=== PATIENT | male | born 1975 | race Caucasian/White ===

== ENCOUNTER 2016-12-03 02:16 | Inpatient (IN) | payer OTHER ==
[~2016-12-03] VITALS: Ht 175.3 cm; Wt 114.7 kg
[~2016-12-03 02:16] MED LIST: AMLO-110 PO; ASPI81TA82 PO; DIAZ-165 PO; DICY20TA35 PO; DRGTP12 TD; FLUT0.0529 NAE; GLIP-199 PO; HYDR25TA5 PO; LSN20 PO; METF500T5 PO; METO100T14 PO; NRN400 PO; OXYC15TA49 PO; POTA20TA16 PO; PRLSR20 PO; TRAZ100T29 PO
[2016-12-03] MEDS ORDERED: LORAZEPAM 2 MG/ML 1 ML VIAL IV STA (02:30)
[2016-12-03] MEDS ORDERED: LABETALOL HCL IV 5 MG/ML 20ML IV STA (02:30)
--- NOTE | 2016-12-03 02:32 | EMERGENCY ROOM VISIT NOTE ---
History Report prepared by Hebert: Lenka Ballesteros Under the Supervision of: Dr. Ugo Prasad M.D. First contact with patient: 02:17 Chief Complaint: CHEST PAIN Stated Complaint: CHEST PAIN/SHORTNESS OF BREATH History of Present Illness The patient is a 41 year old male who presents to the Emergency Room with complaints of constant sharp chest pain beginning 3 hours ago. The patient complains of pain radiating to his left arm, shortness of breath, and a headache that began after he received nitroglycerine in the ambulance [employer]. He notes that his chest pain started while he was watching TV and it feels similar to the pain that he had 1 month ago. He reports that his chest pain is resolving slightly now. The patient denies any abdominal pain, leg swelling, calf pain, back pain, and cocaine usage. He notes that he has not taken his blood pressure medication tonight. Source of History: patient Onset: 3 hours ago Position: chest Quality: sharp Timing: constant Associated Symptoms: + SOB, + headache, No abdominal pain, No back pain Note: The patient complains of pain radiating to his left arm. The patient denies any leg swelling, calf pain, and cocaine usage. Review of Systems See HPI for pertinent positives & negatives. A total of 10 systems reviewed and were otherwise negative. Past Medical & Surgical Medical Problems: (1) Anxiety (2) Asthma (3) Bipolar disorder (4) Diabetes mellitus type I (5) GERD (gastroesophageal reflux disease) (6) HTN (hypertension) (7) Obesity (8) JOSE (obstructive sleep apnea) Surgical Problems: (1) History of tonsillectomy and adenoidectomy (2) Hx of reconstruction of anterior cruciate ligament tear (3) S/P left knee arthroscopy Social History Problems: (1) Tobacco use Family History Diabetes mellitus FH: cancer FH: lung disease FHx: gallbladder disease FHx: heart disease Hypertension Kidney disease Kidney stones Social History Smoking Status: Former Smoker Alcohol Use: none Drug Use: none Marital Status: Housing Status: lives with family Occupation Status: disabled Current/Historical Medications Scheduled Amlodipine (Norvasc), 5 MG PO DAILY Aspirin (Aspirin Ec), 81 MG PO DAILY Budesonide/Formoterol Fumarate (Symbicort 160/4.5 Inhaler), 2 PUFFS INH BID Diazepam (Valium), 5 MG PO QID Dicyclomine Hcl (Bentyl), 20 MG PO QID Fentanyl (Fentanyl), 12 MCG TD CQ72HR Fluticasone Propionate (Nasal) (Flonase Allergy Relief), 2 SPRAYS CAROLEE DAILY Gabapentin (Gabapentin), 400 MG PO TID Glipizide (Glipizide Er), 10 MG PO DAILY Hydrochlorothiazide (Hydrochlorothiazide), 25 MG PO DAILY Lisinopril (Lisinopril), 20 MG PO QPM Metformin Hcl Er (Glucophage Er), 500 MG PO BID Metoprolol Tartrate (Lopressor) (Lopressor), 100 MG PO BID Montelukast Sodium (Singulair), 10 MG PO DAILY Omeprazole (Prilosec), 20 MG PO TID Oxycodone Hcl (Roxicodone), 15 MG PO QID Trazodone Hcl (Trazodone), 300 MG PO HS Scheduled PRN Docusate Sodium (Stool Softener), 100 MG PO TID PRN for Constipation Potassium Ext Rel (Klor-Con), 20 MEQ PO DAILY PRN for WHEN TAKING LASIX Allergies Coded Allergies: Hydrocodone (Verified Allergy, Unknown, hives, itching, 12/03/16) Tramadol (Unverified Allergy, Unknown, VOMITING, 12/03/16) Uncoded Allergies: ANTIBIOTICS (Allergy, Unknown, c diff, 06/30/15) pt states"I have to be treated for c diff if i am taking any abx Physical Exam Vital Signs Date Time Temp Pulse Resp B/P Pulse Ox O2 Delivery O2 Flow Rate FiO2 12/03/16 06:59 83 156/94 98 Room Air 12/03/16 06:16 85 12/03/16 05:43 93 16 175/93 99 Room Air 12/03/16 04:02 85 16 157/95 97 Room Air 12/03/16 02:23 74 12/03/16 02:22 36.8 77 18 182/104 99 Room Air Physical Exam GENERAL: Patient is anxious appearing and in mild distress. HEENT: No acute trauma, normocephalic atraumatic, mucous membranes moist, no nasal congestion, no scleral icterus. NECK: No stridor, no adenopathy, no meningismus, trachea is midline. LUNGS: No dyspnea. Clear to auscultation and equal bilaterally. No wheeze, no rhonchi. HEART: Regular rate and rhythm. No murmurs, rubs, gallops appreciated. ABDOMEN: Soft, nontender, bowel sounds positive, no masses appreciated, no peritonitis. BACK: No midline tenderness, no CVA tenderness EXTREMITIES: Normal motion all extremities, no cyanosis, no edema. NEUROLOGIC: Alert and oriented, no acute motor or sensory deficits, no focal weakness, cranial nerves grossly intact. SKIN: No rash, no jaundice, no diaphoresis. Medical Decision & Procedures ER Provider Diagnostic Interpretation: X ray results and stated below per my interpretation. Other radiology results and stated below per my review and radiologist interpretation: Chest: 1 view: No infiltrate, no effusion, normal cardiac border. CTA Chest: No aortic aneurysm or dissection. No evidence of pulmonary embolism, but evaluation is slightly limited by timing of contrast bolus. Mild left anterior descending coronary artery calcification. Heart is not enlarged. Lungs are clear. No effusion or pneumothorax. Schmorl's nodes of thoracic spine. Laboratory Results 12/03/16 02:35 Red Blood Count 4.19, Mean Corpuscular Volume 85.7, Mean Corpuscular Hemoglobin 30.8, Mean Corpuscular Hemoglobin Concent 35.9, Mean Platelet Volume 9.3, Neutrophils (%) (Auto) 56.8, Lymphocytes (%) (Auto) 30.3, Monocytes (%) (Auto) 9.0, Eosinophils (%) (Auto) 2.6, Basophils (%) (Auto) 0.5, Neutrophils # (Auto) 4.40, Lymphocytes # (Auto) 2.35, Monocytes # (Auto) 0.70, Eosinophils # (Auto) 0.20, Basophils # (Auto) 0.04 12/03/16 02:35 Test 12/03/16 02:35 White Blood Count 7.75 K/uL (4.8-10.8) Red Blood Count 4.19 M/uL (4.7-6.1) Hemoglobin 12.9 g/dL (14.0-18.0) Hematocrit 35.9 % (42-52) Mean Corpuscular Volume 85.7 fL (80-100) Mean Corpuscular Hemoglobin 30.8 pg (25-34) Mean Corpuscular Hemoglobin Concent 35.9 g/dl (32-36) Platelet Count 191 K/uL (130-400) Mean Platelet Volume 9.3 fL (7.4-10.4) Neutrophils (%) (Auto) 56.8 % Lymphocytes (%) (Auto) 30.3 % Monocytes (%) (Auto) 9.0 % Eosinophils (%) (Auto) 2.6 % Basophils (%) (Auto) 0.5 % Neutrophils # (Auto) 4.40 K/uL (1.4-6.5) Lymphocytes # (Auto) 2.35 K/uL (1.2-3.4) Monocytes # (Auto) 0.70 K/uL (0.11-0.59) Eosinophils # (Auto) 0.20 K/uL (0-0.5) Basophils # (Auto) 0.04 K/uL (0-0.2) RDW Standard Deviation 37.9 fL (36.4-46.3) RDW Coefficient of Variation 12.3 % (11.5-14.5) Immature Granulocyte % (Auto) 0.8 % Immature Granulocyte # (Auto) 0.06 K/uL (0.00-0.02) D-Dimer 250 ug/L FEU (0-500) Anion Gap 10.0 mmol/L (3-11) Est Creatinine Clear Calc Drug Dose 111.5 ml/min Estimated GFR () 95.5 Estimated GFR (Non- 82.4 BUN/Creatinine Ratio 16.6 (10-20) Calcium Level 8.5 mg/dl (8.5-10.1) Total Creatine Kinase 158 U/L (39-308) Creatine Kinase MB 1.3 ng/ml (0.5-3.6) Creatine Kinase MB Ratio 0.8 (0-3.0) Troponin I < 0.015 ng/ml (0-0.045) Laboratory results as reviewed by me. Medications Administered Medications (Trade) Dose Ordered Sig/Ney Route Start Time Stop Time Status Last Admin Dose Admin Lorazepam (Ativan Inj) 1 mg NOW STAT IV 12/03/16 02:30 12/03/16 02:31 DC 12/03/16 02:36 1 MG Labetalol HCl (Normodyne IV) 10 mg NOW STAT IV 12/03/16 02:30 12/03/16 02:31 DC 12/03/16 02:38 10 MG Hydromorphone HCl (Dilaudid Inj) 1 mg NOW STAT IV 12/03/16 03:16 12/03/16 03:18 DC 12/03/16 04:01 1 MG ECG Indication: chest pain Rate (beats per minute): 77 Rhythm: normal sinus Findings: no acute ischemic change, no ectopy ED Course 0217: The patient was evaluated in room B6. A complete history and physical exam was performed. 0230: Normodyne IV 10mg IV, Ativan Inj 1mg IV. 0316: Dilaudid Inj 1mg IV. 0319: The chest pain has improved. Headache is severe and he needs stronger pain medications. 0515: I reevaluated the patient. He states that his pain is back and he thinks that there is something very wrong with him. 0546: Patient was reevaluated and is very anxious and demanding to be admitted to the hospital. He denies that he is anxious at all. 0700: Discussed the patient's case with Dr. Coley [facility]. The patient will be evaluated for further treatment and disposition. Upon reevaluation, the patient is hemodynamically stable. Discussed results and treatment plan with the patient. He verbalized understanding and agreement with the treatment plan. The patient will be evaluated for further management. Medical Decision Differential: Cardiac Ischemia (STEMI, NSTEMI, Unstable Angina, etc), Aortic Dissection, Arrhythmia, Pulmonary Embolism, Pneumonia, Pneumothorax, MSK, Infectious, Pericarditis/Myocarditis, Esophageal Rupture, Gastrointestinal, amongst other pathologies entertained. 41 yr old male with multiple CAD risk factors though recent cardiac rule out as observation without acute findings. Patient arrives with left chest pain, sharp in nature radiating to neck and left arm. He is quite anxious though adamantly denies being anxious. Notes headache with Nitro thus given Dilaudid instead with mild improvement. EKG initially normal. Trop x 3 is negative. CTA chest done given continued pain which is negative, though does demonstrate some coronary calcifications of uncertain significance. I feel further narcotics would be unwise and he does not wish further slntg. Patient still complaining of pain and requesting to be brought in to hospital. I explained that he may not meet any criteria but he would like to be evaluated by hospitalist service. Consults Time Called: 0650 Consulting Physician: Dr. Xiomara Deluna Returned Call: 0700 Discussed the patient's case with Dr. Coley [facility]. The patient will be evaluated for further treatment and disposition. Impression Primary Impression: Left sided chest pain Scribe Attestation The scribe's documentation has been prepared under my direction and personally reviewed by me in its entirety. I confirm that the note above accurately reflects all work, treatment, procedures, and medical decision making performed by me. Departure Information Dispostion Being Evaluated By Hospitalist Referrals Jaxson Eldridge PA-C (PCP) Patient Instructions ED Chest Pain Atypical Unkn Cause, My [facility]
[2016-12-03 02:44] LABS: BASO % 0.5 %; BASO ABS # 0.04 K/uL (0-0.2); COMPLETE YES; EOS % 2.6 %; HEMATOCRIT 35.9 % (42-52); IG% 0.8 %; LYMPH % 30.3 %; LYMPH ABS # 2.35 K/uL (1.2-3.4); MEAN CELL VOLUME 85.7 fL (80-100); MEAN CORPUSCULAR HEMOGLOBIN 30.8 pg (25-34); MEAN CORPUSCULAR HGB CONC 35.9 g/dl (32-36); MEAN PLATELET VOLUME 9.3 fL (7.4-10.4); NEUT % 56.8 %; PLATELET COUNT 191 K/uL (130-400); RED BLOOD COUNT 4.19 M/uL (4.7-6.1); WHITE BLOOD COUNT 7.75 K/uL (4.8-10.8)
[2016-12-03 03:00] LABS: BLOOD UREA NITROGEN 18 mg/dl (7-18); BUN/CREATININE RATIO 16.6 (10-20); CALCIUM 8.5 mg/dl (8.5-10.1); CARBON DIOXIDE 27 mmol/L (21-32); CHLORIDE 106 mmol/L (98-107); GLUCOSE 191 mg/dl (70-99); POTASSIUM 3.9 mmol/L (3.5-5.1); SODIUM 143 mmol/L (136-145)
[2016-12-03 03:05] LABS: CKMB/CK RATIO 0.8 (0-3.0)
[2016-12-03] MEDS ORDERED: HYDROmorphone INJ 1 MG/ML SYR IV STA (03:16)
[2016-12-03] MEDS ORDERED: OPTIRAY 320 IV PRN (05:30)
--- NOTE | 2016-12-03 06:47 | DIAGNOSTIC IMAGING REPORT ---
CT chest CHEST COMBO ANGIOGRAPHY CLINICAL HISTORY: Chest pain dyspnea TECHNIQUE: Transaxial acquisition with multi axial reformatted imaging. COMPARISON STUDY: None FINDINGS: Lungs are clear. Mediastinal and hilar regions are unremarkable. There is no significant adenopathy. Minimal degenerative change thoracic spine. Negative thoracic aorta IMPRESSION: No acute process. Electronically signed by: Mukesh Uribe M.D. 12/03/2016 6:46 AM Dictated Date/Time: 12/03/2016 6:43 AM
--- NOTE | 2016-12-03 06:52 | DIAGNOSTIC IMAGING REPORT ---
CHEST ONE VIEW PORTABLE CLINICAL HISTORY: Chest Pain dyspnea COMPARISON STUDY: 10/23/2016 FINDINGS: The bones soft tissues and hemidiaphragms are normal. The cardiomediastinal silhouette is normal. The lungs are clear. The pulmonary vasculature is normal. IMPRESSION: Negative chest. Electronically signed by: Mukesh Uribe M.D. 12/03/2016 6:50 AM Dictated Date/Time: 12/03/2016 6:50 AM
[2016-12-03] MEDS ORDERED: POLYETHYLENE (MIRALAX) 17 GM PACK PO PRN (08:15)
[2016-12-03] MEDS ORDERED: ACETAMINOPHEN 325 MG TAB PO PRN (08:15)
[2016-12-03] MEDS ORDERED: MAGNESIUM HYDROXIDE SUSP 30 ML UDC PO PRN (08:15)
[2016-12-03] MEDS ORDERED: POTASSIUM CHLORIDE 20 MEQ TABCR PO PRN (08:15)
[2016-12-03] MEDS ORDERED: ALUMINUM/MAGNESIUM/SIMETH (MAALOX MAX) 30 ML UDC PO PRN (08:15)
[2016-12-03] MEDS ORDERED: ONDANSETRON INJ 2 MG/ML 2 ML VIAL IV PRN (08:15)
[2016-12-03 08:22] VITALS: BP 172/128; PULSE 83; O2SAT 98; BMI 39.1
[2016-12-03] MEDS: OXYCODONE HCL IR 5 MG TAB (IMMEDIATE RELEASE) PO SCH ×4 (09:00→21:26)
[2016-12-03] MEDS ORDERED: OXYCODONE HCL IR 5 MG TAB (IMMEDIATE RELEASE) ONE (09:10)
[2016-12-03] MEDS ORDERED: PHARMACY GLYCEMIC MGMT CONSULT PRN (09:21)
[2016-12-03] MEDS ORDERED: GLUCOSE 40% GEL 15 GM TUBE PO PRN (09:45)
[2016-12-03] MEDS ORDERED: DEXTROSE 50% 50 ML SYR IV PRN (09:45)
[2016-12-03] MEDS ORDERED: GLUCAGON FOR INJ 1 MG VIAL SQ PRN (09:45)
[2016-12-03] MEDS ORDERED: GLUCOSE 10 TABS/TUBE PO PRN (09:45)
[2016-12-03 09:48] VITALS: BP 182/108; PULSE 82; TEMP 37.1; O2SAT 96
[2016-12-03] MEDS: DIAZEPAM 5MG TAB PO SCH ×4 (09:57→21:24)
[2016-12-03] MEDS ORDERED: FENTANYL 12 MCG/HR TDSY TD SCH (10:00)
[2016-12-03] MEDS ORDERED: DOCUSATE SODIUM 100 MG CAP PO PRN (10:00)
[2016-12-03] MEDS: BUDESONIDE/FORMOTEROL FUMARATE 160/4.5 60 PUFFS/INHALER INH SCH ×2 (10:28→21:11)
[2016-12-03] MEDS: FLUTICASONE PROPIONATE NA SPR 16 GM BTL NAE SCH (10:29)
[2016-12-03] MEDS: DICYCLOMINE HCL 20 MG TAB PO SCH ×4 (10:29→21:11)
[2016-12-03] MEDS: ASPIRIN 81 MG ECTAB PO SCH (10:30)
[2016-12-03] MEDS: METOPROLOL TARTRATE 100 MG TAB PO SCH ×2 (10:31→21:13)
[2016-12-03] MEDS: HYDROCHLOROTHIAZIDE 25 MG TAB PO SCH (10:31)
[2016-12-03] MEDS: AMLODIPINE BESYLATE 5 MG TAB PO SCH (10:32)
[2016-12-03] MEDS: PANTOprazole SOD 40 MG TAB PO SCH ×2 (10:32→15:51)
[2016-12-03] MEDS: GABAPENTIN 400 MG CAP PO SCH ×3 (10:32→21:12)
[2016-12-03 10:40] LABS: INR 0.9 (0.9-1.1)
[2016-12-03] MEDS ORDERED: IV FLUIDS COMPLETED PRN (12:00)
[2016-12-03 12:07] VITALS: BP 161/99; PULSE 85; TEMP 37; O2SAT 96
[2016-12-03] MEDS: INSULIN ASPART 100 UNITS/ML 3 ML PEN SC SCH ×3 (12:20→21:18)
[2016-12-03] MEDS: ENOXAPARIN 40 MG/0.4 ML SYR SC SCH (12:55)
--- NOTE | 2016-12-03 14:10 | Pharmacy Progress Note ---
Glycemic Control Intl Consult Date of Service Dec 03, 2016. Scope Glycemic Pharmacist consulted by Dr Garcia on 12/03/16 for glycemic control and to write orders per [facility] inpatient glycemic control protocol Objective Weight (Kilograms): 120.200 Accuchecks BSG (last 24hrs): Test 12/03/16 02:35 12/03/16 11:36 Random Glucose 191 mg/dl (70-99) Bedside Glucose 174 mg/dl (70-99) Laboratory Data (last 24hrs) Test 12/03/16 02:35 Anion Gap 10.0 mmol/L BUN/Creatinine Ratio 16.6 Blood Urea Nitrogen 18 mg/dl Creatinine 1.10 mg/dl Potassium Level 3.9 mmol/L Sodium Level 143 mmol/L White Blood Count 7.75 K/uL Red Blood Count 4.19 M/uL Hemoglobin 12.9 g/dL Hematocrit 35.9 % Mean Corpuscular Volume 85.7 fL Mean Corpuscular Hemoglobin 30.8 pg Mean Corpuscular Hemoglobin Concent 35.9 g/dl Platelet Count 191 K/uL Mean Platelet Volume 9.3 fL Neutrophils (%) (Auto) 56.8 % Lymphocytes (%) (Auto) 30.3 % Monocytes (%) (Auto) 9.0 % Eosinophils (%) (Auto) 2.6 % Basophils (%) (Auto) 0.5 % Neutrophils # (Auto) 4.40 K/uL Lymphocytes # (Auto) 2.35 K/uL Monocytes # (Auto) 0.70 K/uL Eosinophils # (Auto) 0.20 K/uL Basophils # (Auto) 0.04 K/uL HbA1c Item Value Date Time Hemoglobin A1c 7.4 % H 11/01/16 0503 Recent Pertinent Medications Outpatient Anti-diabetic Regimen: * Metformin 500 mg PO BIDM * Glipizide XR 10 PO QD * A1c = 7.4 % 10/2016 The patient is currently receiving: * Correctional Insulin: Novolog Correction per scale ACHS Goal Range: Low 100 mg/dL - High 140 mg/dL Correction Factor: 30 mg/dL/unit * Prandial insulin: Per carb ratio of 1 unit per 10 grams CHO consumed Risk Factors for Insulin Resistance: * Diet Assessment & Plan ASSESSMENT: * 41 yo T2D M admitted with chest pain/SOB, BSG 191 mg/dL * A1c from 10/2016 is 7.4% which indicates good glycemic control as an outpatient * I plan to initiate weight-based Novolog with lunch and hold outpatient orals * ADA & AACE recommend a goal blood sugar range 140-180 mg/dl for the majority of critically ill & non-critically ill patients. However, more stringent targets may be selected in individual cases. Decrease goal range to 100-140 mg/ dL. PLAN FOR INPATIENT GLYCEMIC CONTROL: * Hold outpatient oral diabetes medications * No basal insulin at this time * Correctional Insulin with NOVOLOG per scale ACHS or Q6hrs while NPO * Goal Range: Low 100 mg/dL - High 140 mg/dL * Correction Factor: 30 mg/dL/unit * Nutritional / Prandial insulin per carb ratio of 1 unit per 10 grams CHO consumed * A1c current- added to D/C instructions * Please note that the plan above was derived based on current level of insulin resistance and hospital stress. These recommendations are appropriate for inpatient admission only. Plan of care upon discharge will need to be reassessed to avoid potential outpatient hypo/hyperglycemia. Thank you.
[2016-12-03 15:08] LABS: CKMB/CK RATIO 0.8 (0-3.0)
[2016-12-03] MEDS: CHECK FENTANYL PATCH PLACEMENT SCH (15:53)
--- NOTE | 2016-12-03 17:32 | History and Physical ---
History & Physical Date & Time of Service: Dec 03, 2016 at 17:30 Chief Complaint: Left Sided Chest Pain Primary Care Physician: Jaxson Eldridge PA-C History of Present Illness Source: patient, hospital records 41 year old male with known past medical history of Hypertension, Diabetes, Asthma, GERD, Anxiety disorder, History JOSE, History of Bipolar presents to the ER with chief complaint of constant sharp chest pain beginning 3 hours ago around 11.00 PM last night. Patient complains of pain radiating to his left arm , shortness of breath, and a headache that began after he received nitroglycerine in the ambulance [employer]. He tells that his chest pain started while he was watching TV and it feels similar to the pain that he had 1 month ago. He reports that his chest pain is resolving slightly now. The patient denies any abdominal pain, leg swelling, calf pain, back pain, and cocaine usage. He notes that he has not taken his blood pressure medication tonight. Past Medical/Surgical History Medical Problems: (1) Anxiety Status: Chronic (2) Asthma Status: Chronic (3) Bipolar disorder Status: Chronic (4) Diabetes mellitus type I Status: Chronic (5) GERD (gastroesophageal reflux disease) Status: Chronic (6) HTN (hypertension) Status: Chronic (7) Obesity Status: Chronic (8) JOSE (obstructive sleep apnea) Status: Chronic Surgical Problems: (1) History of tonsillectomy and adenoidectomy Status: Resolved (2) Hx of reconstruction of anterior cruciate ligament tear Status: Resolved (3) S/P left knee arthroscopy Status: Resolved Social History Problems: (1) Tobacco use Status: Chronic Family History Diabetes mellitus FH: cancer FH: lung disease FHx: gallbladder disease FHx: heart disease Hypertension Kidney disease Kidney stones Social History Smoking Status: Never Smoker Drug Use: none Marital Status: Housing status: lives with family Occupational Status: disabled Immunizations History of Influenza Vaccine: Yes History of Tetanus Vaccine?: Unknown History of Pneumococcal: Yes History of Hepatitis B Vaccine: Unknown Multi-Drug Resistant Organisms History of MDRO: Yes Allergies Coded Allergies: Hydrocodone (Verified Allergy, Unknown, hives, itching, 12/03/16) Tramadol (Unverified Allergy, Unknown, VOMITING, 12/03/16) Uncoded Allergies: ANTIBIOTICS (Allergy, Unknown, c diff, 06/30/15) pt states"I have to be treated for c diff if i am taking any abx Home Medications Scheduled Amlodipine (Norvasc), 5 MG PO DAILY Aspirin (Aspirin Ec), 81 MG PO DAILY Budesonide/Formoterol Fumarate (Symbicort 160/4.5 Inhaler), 2 PUFFS INH BID Diazepam (Valium), 5 MG PO QID Dicyclomine Hcl (Bentyl), 20 MG PO QID Fentanyl (Fentanyl), 12 MCG TD CQ72HR Fluticasone Propionate (Nasal) (Flonase Allergy Relief), 2 SPRAYS CAROLEE DAILY Gabapentin (Gabapentin), 400 MG PO TID Glipizide (Glipizide Er), 10 MG PO DAILY Hydrochlorothiazide (Hydrochlorothiazide), 25 MG PO DAILY Lisinopril (Lisinopril), 20 MG PO QPM Metformin Hcl Er (Glucophage Er), 500 MG PO BID Metoprolol Tartrate (Lopressor) (Lopressor), 100 MG PO BID Montelukast Sodium (Singulair), 10 MG PO DAILY Omeprazole (Prilosec), 20 MG PO TID Oxycodone Hcl (Roxicodone), 15 MG PO QID Trazodone Hcl (Trazodone), 300 MG PO HS Scheduled PRN Docusate Sodium (Stool Softener), 100 MG PO TID PRN for Constipation Potassium Ext Rel (Klor-Con), 20 MEQ PO DAILY PRN for WHEN TAKING LASIX Review of Systems See HPI for pertinent positives & negatives. A total of 10 systems reviewed and were otherwise negative. Physical Exam Vital Signs Date Time Temp Pulse Resp B/P Pulse Ox O2 Delivery O2 Flow Rate FiO2 12/03/16 16:05 Room Air 12/03/16 12:10 Room Air 12/03/16 12:07 37.0 85 18 161/99 96 Room Air 12/03/16 10:30 Room Air 12/03/16 09:48 37.1 82 18 182/108 96 12/03/16 09:28 76 20 169/93 98 12/03/16 09:07 76 20 169/93 98 Room Air 12/03/16 09:02 92 12/03/16 08:34 186/95 12/03/16 08:22 83 20 172/128 98 Room Air 12/03/16 08:05 89 20 97 Room Air 12/03/16 07:20 98 Room Air 12/03/16 06:59 83 156/94 98 Room Air 12/03/16 06:16 85 12/03/16 05:43 93 16 175/93 99 Room Air 12/03/16 04:02 85 16 157/95 97 Room Air 12/03/16 02:23 74 12/03/16 02:22 36.8 77 18 182/104 99 Room Air General Appearance: WD/WN, no apparent distress Head: normocephalic, atraumatic Eyes: normal inspection, PERRL, EOMI, sclerae normal ENT: normal ENT inspection, hearing grossly normal, TMs normal, pharynx normal Neck: supple, no adenopathy, thyroid normal, no JVD, no carotid bruits, trachea midline Respiratory/Chest: chest non-tender, lungs clear, normal breath sounds, no respiratory distress, no accessory muscle use Cardiovascular: regular rate, rhythm, no edema, no gallop, no JVD, no murmur, normal peripheral pulses Abdomen/GI: normal bowel sounds, non tender, soft, no organomegaly Genitourinary - Male: normal male genitalia Back: normal inspection, no CVA tenderness, no muscle spasm, normal range of motion Extremities/Musculoskelatal: normal inspection, no calf tenderness Neurologic/Psych: alert, normal mood/affect, normal reflexes, oriented x 3 Skin: normal color, warm/dry, no rash Lymphatic: no adenopathy Diagnostics Laboratory Results Results Past 24 Hours Test 12/03/16 02:35 12/03/16 04:47 12/03/16 06:54 12/03/16 10:15 Range/Units White Blood Count 7.75 4.8-10.8 K/uL Red Blood Count 4.19 4.7-6.1 M/uL Hemoglobin 12.9 14.0-18.0 g/dL Hematocrit 35.9 42-52 % Mean Corpuscular Volume 85.7 80-100 fL Mean Corpuscular Hemoglobin 30.8 25-34 pg Mean Corpuscular Hemoglobin Concent 35.9 32-36 g/dl Platelet Count 191 130-400 K/uL Mean Platelet Volume 9.3 7.4-10.4 fL Neutrophils (%) (Auto) 56.8 % Lymphocytes (%) (Auto) 30.3 % Monocytes (%) (Auto) 9.0 % Eosinophils (%) (Auto) 2.6 % Basophils (%) (Auto) 0.5 % Neutrophils # (Auto) 4.40 1.4-6.5 K/uL Lymphocytes # (Auto) 2.35 1.2-3.4 K/uL Monocytes # (Auto) 0.70 0.11-0.59 K/uL Eosinophils # (Auto) 0.20 0-0.5 K/uL Basophils # (Auto) 0.04 0-0.2 K/uL RDW Standard Deviation 37.9 36.4-46.3 fL RDW Coefficient of Variation 12.3 11.5-14.5 % Immature Granulocyte % (Auto) 0.8 % Immature Granulocyte # (Auto) 0.06 0.00-0.02 K/uL D-Dimer 250 0-500 ug/L FEU Sodium Level 143 136-145 mmol/L Potassium Level 3.9 3.5-5.1 mmol/L Chloride Level 106 98-107 mmol/L Carbon Dioxide Level 27 21-32 mmol/L Anion Gap 10.0 3-11 mmol/L Blood Urea Nitrogen 18 7-18 mg/dl Creatinine 1.10 0.60-1.40 mg/dl Est Creatinine Clear Calc Drug Dose 111.5 ml/min Estimated GFR () 95.5 Estimated GFR (Non- 82.4 BUN/Creatinine Ratio 16.6 10-20 Random Glucose 191 70-99 mg/dl Calcium Level 8.5 8.5-10.1 mg/dl Total Creatine Kinase 158 39-308 U/L Creatine Kinase MB 1.3 0.5-3.6 ng/ml Creatine Kinase MB Ratio 0.8 0-3.0 Troponin I < 0.015 0-0.045 ng/ml Bedside Troponin I 0.010 0.010 0-0.045 ng/ml Prothrombin Time 10.0 9.0-12.0 SECONDS Prothromb Time International Ratio 0.9 0.9-1.1 Test 12/03/16 11:36 12/03/16 14:17 12/03/16 16:29 Range/Units Bedside Glucose 174 161 70-99 mg/dl Total Creatine Kinase 110 39-308 U/L Creatine Kinase MB 0.9 0.5-3.6 ng/ml Creatine Kinase MB Ratio 0.8 0-3.0 Troponin I < 0.015 0-0.045 ng/ml Diagnostic Radiology CHEST ONE VIEW PORTABLE CLINICAL HISTORY: Chest Pain dyspnea COMPARISON STUDY: 10/23/2016 FINDINGS: The bones soft tissues and hemidiaphragms are normal. The cardiomediastinal silhouette is normal. The lungs are clear. The pulmonary vasculature is normal. IMPRESSION: Negative chest. CT chest CHEST COMBO ANGIOGRAPHY CLINICAL HISTORY: Chest pain dyspnea TECHNIQUE: Transaxial acquisition with multi axial reformatted imaging. COMPARISON STUDY: None FINDINGS: Lungs are clear. Mediastinal and hilar regions are unremarkable. There is no significant adenopathy. Minimal degenerative change thoracic spine. Negative thoracic aorta IMPRESSION: No acute process. Impression Assessment and Plan Chest Pain: Patient has multiple cardiac risk factors. Clinically & hemodynamically doing well. -Admit to telemetry -First Troponin is normal. Will see serial trend. -Continue Aspirin -Ordered Echocardiogram History Diabetes: Holding oral agents -Monitor BS and cover as per sliding scale. -Pharmacy consult for glycemic control. Hypertension: BP has been stable. -Continue Amlodipine and Lisinopril under parameters. Bronchial Asthma:Stable. Continue home medications. GERD: Stable. Continue Protonix. History Bipolar Disorder: Continue home medications. Code Status: FULL CODE DVT Prophylaxis: Sq Lovenox. Disposition: Discharge home once is clinically stable. Level of Care Telemetry Advanced Directives Existing Advance Directive: No Existing Living Will: No Existing Power of Patrol Mother: No Resuscitation Status FULL RESUSCITATION VTE Prophylaxis VTE Risk Assessment Done? Y/N: Yes Risk Level: Low Given or contraindicated: Enoxaparin (Lovenox)SQ
[2016-12-03 19:06] VITALS: BP 151/87; PULSE 78; TEMP 36.7; O2SAT 96
[2016-12-03] MEDS ORDERED: MONTELUKAST SOD 10 MG TAB PO SCH (21:00)
[2016-12-03] MEDS: TRAZODONE HCL 100 MG TAB PO SCH (21:11)
[2016-12-03] MEDS: LISINOPRIL 20 MG TAB PO SCH (21:13)
[2016-12-04] VITALS: BP 125/68; PULSE 69; TEMP 36.7; O2SAT 93
[2016-12-04] MEDS: CHECK FENTANYL PATCH PLACEMENT SCH ×4 (00:24→23:45)
[2016-12-04 01:26] LABS: CKMB/CK RATIO 0.9 (0-3.0)
[2016-12-04 07:07] LABS: CHOLESTEROL/HDL RATIO 6.7
[2016-12-04 07:44] VITALS: BP 119/67; PULSE 71; TEMP 36.6; O2SAT 97
[2016-12-04] MEDS: INSULIN ASPART 100 UNITS/ML 3 ML PEN SC SCH ×4 (09:14→21:00)
[2016-12-04] MEDS: OXYCODONE HCL IR 5 MG TAB (IMMEDIATE RELEASE) PO SCH ×5 (09:23→20:59)
[2016-12-04] MEDS: DIAZEPAM 5MG TAB PO SCH ×4 (09:23→20:58)
[2016-12-04] MEDS: BUDESONIDE/FORMOTEROL FUMARATE 160/4.5 60 PUFFS/INHALER INH SCH ×2 (09:24→21:04)
[2016-12-04] MEDS: FLUTICASONE PROPIONATE NA SPR 16 GM BTL NAE SCH (09:24)
[2016-12-04] MEDS: ASPIRIN 81 MG ECTAB PO SCH (09:25)
[2016-12-04] MEDS: DICYCLOMINE HCL 20 MG TAB PO SCH ×4 (09:25→21:01)
[2016-12-04] MEDS: HYDROCHLOROTHIAZIDE 25 MG TAB PO SCH (09:26)
[2016-12-04] MEDS: METOPROLOL TARTRATE 100 MG TAB PO SCH ×2 (09:26→21:00)
[2016-12-04] MEDS: AMLODIPINE BESYLATE 5 MG TAB PO SCH (09:27)
[2016-12-04] MEDS: GABAPENTIN 400 MG CAP PO SCH ×3 (09:27→21:01)
[2016-12-04] MEDS: PANTOprazole SOD 40 MG TAB PO SCH (09:30)
[2016-12-04 11:12] VITALS: BP 138/77
[2016-12-04] MEDS: NITROGLYCERIN 0.4 MG SL PER TAB CHARGE SL PRN ×3 (11:13→15:50)
[2016-12-04 11:33] VITALS: BP 147/61; PULSE 73; TEMP 36.8; O2SAT 94
--- NOTE | 2016-12-04 12:14 | Progress Note ---
Subjective Date of Service: Dec 04, 2016. Subjective Pt evaluation today including: conversation w/ patient, physical exam, lab review, review of studies, review of inpatient medication list Saw/examined the patient in room 283 c/o chest pain this morning some improvement with SL nitro also c/o headaches with nitro spray yesterday mild nausea, improved this morning Problem List Medical Problems: (1) Left sided chest pain Status: Acute Review of Systems Constitutional: No chills, No fever Respiratory: + shortness of breath (at baseline), No cough, No dyspnea on exertion, No sputum, No wheezing Cardiac: + chest pain, No edema, No orthopnea, No palpitations Abdomen: No diarrhea, No nausea, No pain, No vomiting Medications Current Inpatient Medications Medications (Trade) Dose Ordered Sig/Ney Route Start Time Stop Time Status Last Admin Dose Admin Ioversol (Optiray 320) 100 ml UD PRN IV 12/03/16 05:30 12/07/16 05:29 Amlodipine Besylate (Norvasc Tab) 5 mg DAILY PO 12/03/16 09:00 01/02/17 08:59 12/04/16 09:27 5 MG Aspirin (Ecotrin Tab) 81 mg DAILY PO 12/03/16 09:00 01/02/17 08:59 12/04/16 09:25 81 MG Budesonide/ Formoterol Fumarate (Symbicort 160/ 4.5 Inh) 2 puffs BID INH 12/03/16 09:00 01/02/17 08:59 12/04/16 09:24 2 PUFFS Diazepam (Valium Tab) 5 mg QID PO 12/03/16 09:00 01/02/17 08:59 12/04/16 09:23 5 MG Dicyclomine HCl (Bentyl Tab) 20 mg QID PO 12/03/16 09:00 01/02/17 08:59 12/04/16 09:25 20 MG Fentanyl (Duragesic Patch) 12 mcg Q72H TD 12/03/16 10:00 12/17/16 09:59 12/03/16 10:35 12 MCG Fluticasone Propionate (Flonase Nasal [place]) 2 sprays DAILY CAROLEE 12/03/16 09:00 01/02/17 08:59 12/04/16 09:24 2 SPRAYS Gabapentin (Neurontin Cap) 400 mg TID PO 12/03/16 09:00 01/02/17 08:59 12/04/16 09:27 400 MG Hydrochlorothiazide (Hydrochlorothiazide Tab) 25 mg DAILY PO 12/03/16 09:00 01/02/17 08:59 12/04/16 09:26 25 MG Lisinopril (Zestril Tab) 20 mg QPM PO 12/03/16 21:00 01/02/17 20:59 12/03/16 21:13 20 MG Metoprolol Tartrate (Lopressor Tab) 100 mg BID PO 12/03/16 09:00 01/02/17 08:59 12/04/16 09:26 100 MG Montelukast Sodium (Singulair Tab) 10 mg HS PO 12/03/16 21:00 01/02/17 20:59 12/03/16 21:12 10 MG Oxycodone HCl (Roxicodone Immediate Rel Tab) 15 mg QID PO 12/03/16 09:00 12/17/16 08:59 12/04/16 09:23 15 MG Trazodone HCl (Desyrel Tab) 300 mg HS PO 12/03/16 21:00 01/02/17 20:59 12/03/16 21:11 300 MG Docusate Sodium (coLACE CAP) 100 mg TID PRN PO 12/03/16 10:00 01/02/17 09:59 Enoxaparin Sodium (Lovenox Inj) 40 mg Q24H SC 12/03/16 12:00 01/02/17 11:59 12/03/16 12:55 40 MG Acetaminophen (Tylenol Tab) 650 mg Q4H PRN PO 12/03/16 08:15 01/02/17 08:14 Al Hydrox/Mg Hydrox/Simethicone (Maalox Max Susp) 15 ml Q4H PRN PO 12/03/16 08:15 01/02/17 08:14 Magnesium Hydroxide (Milk Of Magnesia Susp) 30 ml Q12H PRN PO 12/03/16 08:15 01/02/17 08:14 Ondansetron HCl (Zofran Inj) 4 mg Q6H PRN IV 12/03/16 08:15 01/02/17 08:14 Nitroglycerin (Nitrostat Tab) 0.4 mg UD PRN SL 12/03/16 08:15 01/02/17 08:14 12/04/16 11:35 0.4 MG Polyethylene (Miralax Powder Packet) 17 gm DAILY PRN PO 12/03/16 08:15 01/02/17 08:14 Miscellaneous Information (Consult Glycemic Management Pharmacy) 1 ea UD PRN N/A 12/03/16 09:21 01/02/17 09:20 Insulin Aspart (novoLOG ASPART) SLIDING SCALE ACHS SC 12/03/16 11:00 01/02/17 10:59 12/04/16 09:14 9 UNITS Glucose (Glucose 40% Gel) 15-30 GRAMS 15 GRAMS... UD PRN PO 12/03/16 09:45 01/02/17 09:44 Glucose (Glucose Chew Tab) 4-8 Tablets 4 Tabl... UD PRN PO 12/03/16 09:45 01/02/17 09:44 Dextrose (Dextrose 50% 50ML Syringe) 25-50ML OF 50% DW IV FOR... UD PRN IV 12/03/16 09:45 01/02/17 09:44 Glucagon (Glucagon Inj) 1 mg UD PRN SQ 12/03/16 09:45 01/02/17 09:44 Miscellaneous (Fentanyl Patch Remove & Waste) 1 ea Q3D N/A 12/06/16 09:59 01/05/17 09:58 Miscellaneous Information (Check Fentanyl Patch Placement) 1 ea QS N/A 12/03/16 16:00 01/02/17 15:59 12/04/16 09:16 1 EA Miscellaneous (Iv Fluids Completed) 1 ea PRN PRN N/A 12/03/16 12:00 12/03/17 11:59 Pantoprazole Sodium (Protonix Tab) 40 mg DAILY PO 12/04/16 09:00 01/03/17 08:59 12/04/16 09:30 40 MG Objective Vital Signs Date Time Temp Pulse Resp B/P Pulse Ox O2 Delivery O2 Flow Rate FiO2 12/04/16 11:33 36.8 73 17 147/61 94 Room Air 12/04/16 11:12 138/77 12/04/16 08:00 Room Air 12/04/16 07:44 36.6 71 18 119/67 97 Room Air 12/04/16 04:00 Room Air 12/04/16 00:00 Room Air 12/04/16 00:00 36.7 69 20 125/68 93 Room Air 12/03/16 20:00 Room Air 12/03/16 19:06 36.7 78 20 151/87 96 Room Air 12/03/16 16:05 Room Air 12/03/16 12:10 Room Air 12/03/16 12:07 37.0 85 18 161/99 96 Room Air Physical Exam General Appearance: no apparent distress Respiratory/Chest: lungs clear, normal breath sounds, no respiratory distress, no accessory muscle use Cardiovascular: regular rate, rhythm, no edema, no murmur Abdomen: normal bowel sounds, non tender, soft Extremities: normal inspection, no pedal edema Neurologic/Psychiatric: no motor/sensory deficits, alert, normal mood/affect Laboratory Results Last 24 Hours Test 12/03/16 14:17 12/03/16 16:29 12/03/16 20:39 12/03/16 23:27 Total Creatine Kinase 110 U/L U/L Creatine Kinase MB 0.9 ng/ml ng/ml Creatine Kinase MB Ratio 0.8 Troponin I < 0.015 ng/ml < 0.015 ng/ml Bedside Glucose 161 mg/dl 162 mg/dl Test 12/04/16 00:35 12/04/16 05:50 12/04/16 07:33 12/04/16 11:27 Total Creatine Kinase 86 U/L Creatine Kinase MB 0.8 ng/ml Creatine Kinase MB Ratio 0.9 Triglycerides Level 606 mg/dl Cholesterol Level 240 mg/dl HDL Cholesterol 36 mg/dl LDL Cholesterol, Calculated mg/dl VLDL Cholesterol, Calculated mg/dl Cholesterol/HDL Ratio 6.7 Bedside Glucose 157 mg/dl 145 mg/dl Assessment and Plan This is a 41 year old male with PMH of HTN, DM2, hypertriglyceridemia, asthma, tobacco use disorder presents with left sided chest pain Chest Pain r/o ACS Patient presents with left sided chest pain Pain around 5/10 this morning, but improved with SL nitro cardiac enzymes negative x [address] changes, will repeat EKG continue aspirin, b-kirk has had cardiac cath over 5 years prior with some "build-up" as per patient due to risk factors, will consult cardiology for further input Hypertriglyceridemia/Hypercholesterolemia Triglycerides > 600 Cholesterol > 200 will start statin DM2 hold oral agents insulin sliding scale pharmacy glycemic control consult HTN blood pressures are stable today elevated on presentation continue amlodipine, DEWARD-I, b-kirk Asthma stable, no exacerbation continue home inhalers GERD cont. PPI Bipolar Disorder continue home medications DVT ppx Lovenox FULL CODE
[2016-12-04] MEDS ORDERED: ATORVASTATIN 10 MG TAB PO ONE (12:30)
[2016-12-04] MEDS: ENOXAPARIN 40 MG/0.4 ML SYR SC SCH (12:46)
[2016-12-04 15:12] VITALS: BP 133/91; PULSE 74; TEMP 36.9; O2SAT 93
[2016-12-04 15:48] VITALS: BP 148/84; PULSE 69; TEMP 36.7; O2SAT 95
--- NOTE | 2016-12-04 16:17 | CARDIOLOGY CONSULTATION ---
DATE OF CONSULTATION: 12/04/2016 DATE OF CONSULTATION: 12/04/2016. REFERRING PHYSICIAN: Dr. Hicks. INDICATIONS: Chest pain, abnormal EKG. HISTORY OF PRESENT ILLNESS: The patient is a 41-year-old male whose history is notable for hypertension, dyslipidemia with elevated triglycerides, type 2 diabetes mellitus, obesity, obstructive sleep apnea with poor tolerance of CPAP, prior uvulectomy, history of bipolar disease, past surgery evaluation for chest pains including a cardiac catheterization at [facility] greater than 5 years past. The patient was recently hospitalized at [facility] on 10/31/2016 with chest pain but no evidence of myocardial infarction. Arrangements were made for outpatient stress testing which patient was unable to complete. He carries a history of past evaluations for chest pain with poor tolerance of testing. He is unable to ambulate on a treadmill due to chronic hip pain. Attempted dobutamine stress echocardiography was very poorly tolerated. The patient represents now having developed severe chest pain and nausea pm date of admission. The pain radiated to the left arm and was associated with shortness of breath, nausea and lightheadedness. Pain was relieved by nitroglycerin in the Emergency Room. Blood pressures per patient have been somewhat variable. Notes no headache or visual changes. Notes no exercise specifically induced abnormalities. Notes no fevers, chills or productive cough. Notes no melena, hematochezia, dysuria or hematuria. He has had caffeinated beverage with his lunch today including stress nuclear imaging today. ALLERGIES: HYDROCODONE, TRAMADOL. MEDICATIONS: Prior to hospitalization were amlodipine 5 mg per day, aspirin 81 mg per day, Symbicort inhaler, Valium 5 mg 4 times a day, Bentyl 20 mg 4 times per day, stool softer 100 mg t.i.d. p.r.n., fentanyl patch, gabapentin 400 mg t.i.d., glipizide 10 mg daily, hydrochlorothiazide 25 mg daily, lisinopril 20 grams p.o. day, metformin 500 mg b.i.d., metoprolol tartrate 100 mg b.i.d., Singulair 10 mg p.o. daily, omeprazole 20 mg t.i.d., oxycodone 15 mg q.i.d., potassium chloride 20 mg every day p.r.n., trazodone 300 mg at bedtime. PAST SURGICAL HISTORY: Notable for prior remote tonsillectomy, history of uvulectomy, history of prior left knee arthroscopic surgery, right ankle surgery. FAMILY HISTORY: Notable for heart disease and father having suffered myocardial infarction in his 40s. SOCIAL HISTORY: The patient is a nonsmoker. Does chew snuff. Uses no significant alcoholic beverages. PHYSICAL EXAMINATION: GENERAL: The patient is an obese, age-appropriate male, currently in no acute distress. VITAL SIGNS: Heart rate 74, blood pressure is 133/91. HEAD, EYES, EARS, NOSE, AND THROAT EXAMINATION: Normocephalic, atraumatic. Nares without discharge. Throat was clear. NECK: Supple without thyromegaly, lymphadenopathy, JVD or bruit. LUNGS: Clear to auscultation. CARDIOVASCULAR EXAMINATION: Regular with normal S1, S2. There is no murmur, gallop or rub. PMI is nondisplaced. ABDOMEN: Soft, nontender. EXTREMITIES: Without cyanosis or clubbing. There is no peripheral edema. DATA: EKG on presentation and this morning demonstrates sinus rhythm with repolarization changes in inferior and lateral leads, more pronounced than on prior tracings dating back several years. Cardiac enzymes are negative to date. Hemoglobin is 12.9. Troponins are negative x3. Chest x-ray reveals no infiltrate or edema. CT scan of the chest demonstrated no infiltrate. Echocardiogram is pending. IMPRESSION: A 41-year-old male, familial history of premature coronary disease and personal cardiac risk factors of hypertension and marked hyperlipidemia who presents now with second hospitalization with chest pain. Prior attempts so evaluate in the past with stress testing were poorly tolerated with the patient unable to tolerate dobutamine stress testing despite significant anxiolytics therapies. He is unable to ambulate secondary to orthopedic issues. Stress nuclear imaging has precluded for today and tomorrow given caffeine use. Symptoms have been persistent and recurred once this morning. EKGs demonstrate new repolarization changes. PLAN: Will review echocardiogram, refer for diagnostic cardiac catheterization in a.m. Will obtain records of prior study of 5 years past, with results to tailor medications and followup once obtained. Discussed the procedure in detail with the patient who is agreeable to plan, n.p.o. after midnight has been ordered. Will discontinue Singulair, hold hydrochlorothiazide in the a.m. In the interim labwork, metabolic panel, and amylase will be ordered given elevated triglycerides, TSH as well.
[2016-12-04 16:47] LABS: BUN/CREATININE RATIO 22.4 (10-20); CALCIUM 8.3 mg/dl (8.5-10.1); POTASSIUM 4.4 mmol/L (3.5-5.1)
[2016-12-04 16:57] LABS: ALB/GLOB RATIO 1.2 (0.9-2); THYROID STIMULATING HORMONE 2.71 uIu/ml (0.300-4.500)
[2016-12-04] MEDS: TRAZODONE HCL 100 MG TAB PO SCH (21:00)
[2016-12-04] MEDS: LISINOPRIL 20 MG TAB PO SCH (21:00)
[2016-12-05] VITALS (46 sets, daily range): BP systolic 114–201; BP diastolic 74–127; PULSE 61–104; TEMP 36.6–37; O2SAT 90–96
[2016-12-05] MEDS ORDERED: SODIUM CHLORIDE 0.9% 1000ML 1,000 ML IV SCH
[2016-12-05 07:43] LABS: HEMATOCRIT 39.2 % (42-52); MEAN CELL VOLUME 88.1 fL (80-100); MEAN CORPUSCULAR HEMOGLOBIN 30.1 pg (25-34); MEAN CORPUSCULAR HGB CONC 34.2 g/dl (32-36); MEAN PLATELET VOLUME 9.4 fL (7.4-10.4); PLATELET COUNT 198 K/uL (130-400); RED BLOOD COUNT 4.45 M/uL (4.7-6.1)
[2016-12-05] MEDS: INSULIN ASPART 100 UNITS/ML 3 ML PEN SC SCH ×4 (08:06→20:43)
[2016-12-05] MEDS: CHECK FENTANYL PATCH PLACEMENT SCH ×3 (08:06→23:57)
[2016-12-05] MEDS: ASPIRIN 81 MG ECTAB PO SCH (08:06)
--- NOTE | 2016-12-05 08:07 | ECHOCARDIOGRAM REPORT ---
*NOTICE TO RECEIVING CONSTITUTION PARTY AGENCY This information is strictly Confidential and protected under [place] law. [place] law prohibits you from making any further disclosure of this information unless further disclosure is expressly permitted by the written consent of the person to whom it pertains or is authorized by law. A general authorization for the release of medical or other information is not sufficient for this purpose. Hospital accepts no responsibility if the information is made available to any other person, INCLUDING THE PATIENT. Interpretation Summary * Name: ALEJANDRINA LUJAN JR Study Date: 12/05/2016 07:59 AM BP: 128/75 mmHg * Patient Location: [facility]\S\N283\S\2 HR: 71 * : 1975 (M/d/yyyy) Gender: Male Height: 69 in * Age: 41 yrs Ethnicity: [place] Weight: 264 lb * Ordering Physician: Raffy Garcia * Referring Physician: Self, Referred * Performed By: Tita Napier RDCS * * Reason For Study: LIMITED FOR PERICARDIAL EFFUSION * BSA: 2.3 m2 * History: LIMITED STUDY FOR PERICARDIAL EFFUSION * -- Conclusions -- * There is no pericardial effusion. Procedure Details * Left Ventricle The left ventricle is normal in size. There is mild concentric left ventricular hypertrophy. Left ventricular systolic function is normal. Ejection Fraction = 55-60%. The left ventricular wall motion is normal. * Pericardium/Pleural There is no pericardial effusion. *
[2016-12-05] MEDS ORDERED: FENTANYL CITRATE INJ 50 MCG/1 ML 2 ML VIAL ONE (08:12)
[2016-12-05] MEDS ORDERED: NiCARDipine HCL INJ 2.5 MG/ML 10 ML AMP ONE (08:12)
[2016-12-05] MEDS ORDERED: MIDAZOLAM HCL 1 MG/ML 2ML VIAL ONE (08:12)
[2016-12-05] MEDS ORDERED: NITROGLYCERIN/D5W 100MCG/ML 20ML SYR ONE (08:12)
[2016-12-05] MEDS ORDERED: HEPARIN SOD (PORCINE) 1000 UNIT/ML 10 ML VIAL ONE (08:12)
--- NOTE | 2016-12-05 08:30 | Procedure Note ---
Pre-Mod Sedation Assessment General Date of Moderate Sedation: Dec 05, 2016. Vital Signs: Vital Signs Past 12 Hours Date Time Temp Pulse Resp B/P Pulse Ox O2 Delivery O2 Flow Rate FiO2 12/05/16 08:07 36.9 61 20 144/92 96 Room Air 12/05/16 07:30 Room Air 12/05/16 04:00 Room Air 12/05/16 00:30 37.0 71 18 128/75 94 Room Air 12/05/16 00:00 Room Air Review Airway Class: II Pre-Sedation Airway Assessment Oral Cavity: WNL Short Thick Neck: Yes Hx of Sleep Apnea: Yes Smoking Status: Former Smoker Mallampati Classification: Class II ASA Classification: Class II Procedure Planning Contraindications-for Mod Sed: None Yes Notes The planned sedation has been discussed with the patient and consent obtained. I have identified the patient, determined the appropriateness of sedation and have assessed the patient immediately prior to the procedure. All medicine(s) and interventions are by my order.
[2016-12-05 08:36] LABS: BUN/CREATININE RATIO 23.3 (10-20); CALCIUM 8.4 mg/dl (8.5-10.1)
[2016-12-05] MEDS ORDERED: SODIUM CHLORIDE 0.9% 1000ML 250 ML IV PRN (09:06)
[2016-12-05] MEDS ORDERED: NITROGLYCERIN 0.4 MG SL PER TAB CHARGE SL PRN (09:15)
[2016-12-05] MEDS ORDERED: ACETAMINOPHEN 325 MG TAB PO PRN (09:15)
--- NOTE | 2016-12-05 09:19 | [facility] Post Operative Brief Note ---
Preliminary Procedure Note Procedure Date Dec 05, 2016. Pre-Procedure Diagnosis Angina AUC Score 7 Post-Procedure Diagnosis Moderate CAD Procedure(s) Performed Coronary Angiography, Left Heart Cath, LV Angiography [employer] Dr. Gume Berger Cryptologic Technician Technical(s) Medication(s) Heparin (5000u IV), Nicardipine (250mcg intraarterial after sheath insertion), Nitroglycerin (200 mcg intraarterial after sheath insertion), Versed (1mg IV), Lidocaine 1% (Local infiltration ) Preliminary Findings Right dominant coronary anatomy Mild to moderate diffuse atherosclerotic luminal irregularities Normal LV function Recommendations Medical therapy and/or Counseling Specimens None Fluids (cc crystalloids) 47 Procedural Complication(s) Left sided neurologic deficit -- Stroke alert callled at end of procedure Disposition ICU
--- NOTE | 2016-12-05 09:41 | DIAGNOSTIC IMAGING REPORT ---
HEAD CT NONCONTRAST CT DOSE: 847.48 mGycm HISTORY: Stroke symptoms. TECHNIQUE: Multiaxial CT images of the head were performed without the use of intravenous contrast. Automated exposure control was utilized for this study. Comparison: Head CT 01/12/2014. Findings: The paranasal sinuses and mastoid air cells are clear. The calvarium and skull base are intact. The ventricles and sulci are within normal limits. There is no mass, hematoma, midline shift, or acute infarct. There is contrast within the brain from the recent catheterization. This limits evaluation for hemorrhage. However, no definite hemorrhage identified. No abnormal enhancement. Impression: No acute intracranial abnormality. There is contrast within the brain from the recent cardiac catheterization. Electronically signed by: Avila Carney M.D. 12/05/2016 9:39 AM Dictated Date/Time: 12/05/2016 9:27 AM
[2016-12-05] MEDS ORDERED: LABETALOL HCL 5 MG/ML 20 ML VIAL - CCU EMERGENCY DRUG ONE (10:02)
[2016-12-05] MEDS ORDERED: LABETALOL HCL IV 5 MG/ML 20ML IV STA (10:02)
[2016-12-05] MEDS ORDERED: ALTEPLASE IV ONE ×2 (10:15→10:30)
[2016-12-05] MEDS ORDERED: RECOMBINANT IV ONE ×2 (10:15→10:30)
[2016-12-05] MEDS ORDERED: SET 2260-0500 IV ONE (10:15)
[2016-12-05 10:20] LABS: PARTIAL THROMBOPLASTIN RATIO 1.8
[2016-12-05] MEDS ORDERED: ALTEPLASE, RECOMBINANT INJ 9 MG in SYRINGE 0 ML IV ONE (10:30)
[2016-12-05] MEDS ORDERED: PROTAMINE SULFATE IV ONE (10:30)
[2016-12-05] MEDS ORDERED: DEXTROSE 5% IV ONE (10:30)
[2016-12-05] MEDS ORDERED: ALTEPLASE, RECOMBINANT INJ 81 MG in EMPTY BAG 0 ML IV SCH (10:30)
[2016-12-05] MEDS ORDERED: NICARDIPINE IV PRN (10:51)
[2016-12-05] MEDS ORDERED: SODIUM CHLORIDE 0.9% IV PRN (10:51)
[2016-12-05 11:08] LABS: MAGNESIUM 2.2 mg/dl (1.8-2.4); POTASSIUM 4.4 mmol/L (3.5-5.1)
[2016-12-05] MEDS ORDERED: NiCARDipine IV 25 MG in SODIUM CHLORIDE 0.9% 250ML 240 ML IV PRN (11:15)
[2016-12-05] MEDS: DIAZEPAM 5MG TAB PO SCH ×3 (12:23→16:44)
[2016-12-05] MEDS: OXYCODONE HCL IR 5 MG TAB (IMMEDIATE RELEASE) PO SCH ×3 (12:24→16:44)
[2016-12-05] MEDS: PANTOprazole SOD 40 MG TAB PO SCH (12:32)
[2016-12-05] MEDS: ATORVASTATIN 10 MG TAB PO SCH (12:32)
[2016-12-05] MEDS: FLUTICASONE PROPIONATE NA SPR 16 GM BTL NAE SCH (12:33)
[2016-12-05] MEDS: GABAPENTIN 400 MG CAP PO SCH ×2 (12:33→13:30)
[2016-12-05] MEDS: AMLODIPINE BESYLATE 5 MG TAB PO SCH (12:33)
[2016-12-05] MEDS: BUDESONIDE/FORMOTEROL FUMARATE 160/4.5 60 PUFFS/INHALER INH SCH ×2 (12:34→20:40)
[2016-12-05] MEDS: SODIUM CHLORIDE 0.9% 1000ML 1,000 ML IV SCH ×2 (12:35→20:04)
[2016-12-05] MEDS ORDERED: PHARMACIST DISCHARGE MED REC CONSULT PRN (12:45)
[2016-12-05] MEDS: DICYCLOMINE HCL 20 MG TAB PO SCH ×3 (13:30→16:43)
[2016-12-05] MEDS: METOPROLOL TARTRATE 100 MG TAB PO SCH (13:30)
--- NOTE | 2016-12-05 13:49 | Neurology Consultation ---
Neurology Consultation Date of Consultation: Dec 05, 2016. Attending Physician: Salinas Hicks DO Primary Care Physician: Jaxson Eldridge PA-C Reason for Consultation: stroke with tPa History of Present Illness Source: patient Gerber is a 41 year old with a H Hypertension, Diabetes, Asthma, GERD, Anxiety disorder, JOSE, bipolar disorder. He was brought to the hospital this am due to chest pain which started last night around 11p. He was taken to the senior label specialist this am and while still on the table he developed left sided weakness and slurred speech. He was taken to the ED and tele stroke was called and he was given tPa. He states he has a strong family history of stroke with his father and his grandmother had multiple strokes. He is a smoker and also chews tobacco. denies current SOB, abdominal pain, CP, N, V, vision changes. + slurred speech, left UE weakness, numbness, LE weakness. Past Medical/Surgical History Medical Problems: (1) Left sided chest pain Status: Acute Social History Smoking Status: Current some day smoker Smokeless Tobacco Use: Yes Drug Use: none Marital Status: Housing Status: lives with family Occupation Status: disabled Allergies Coded Allergies: Hydrocodone (Verified Allergy, Unknown, hives, itching, 12/03/16) Tramadol (Unverified Allergy, Unknown, VOMITING, 12/03/16) Current Inpatient Medications Current Inpatient Medications Medications (Trade) Dose Ordered Sig/Ney Route Start Time Stop Time Status Last Admin Dose Admin Ioversol (Optiray 320) 100 ml UD PRN IV 12/03/16 05:30 12/07/16 05:29 Amlodipine Besylate (Norvasc Tab) 5 mg DAILY PO 12/03/16 09:00 01/02/17 08:59 12/05/16 12:33 5 MG Aspirin (Ecotrin Tab) 81 mg DAILY PO 12/03/16 09:00 01/02/17 08:59 12/05/16 08:06 81 MG Budesonide/ Formoterol Fumarate (Symbicort 160/ 4.5 Inh) 2 puffs BID INH 12/03/16 09:00 01/02/17 08:59 12/05/16 12:34 2 PUFFS Diazepam (Valium Tab) 5 mg QID PO 12/03/16 09:00 01/02/17 08:59 12/05/16 12:36 5 MG Dicyclomine HCl (Bentyl Tab) 20 mg QID PO 12/03/16 09:00 01/02/17 08:59 12/04/16 21:01 20 MG Fentanyl (Duragesic Patch) 12 mcg Q72H TD 12/03/16 10:00 12/17/16 09:59 12/03/16 10:35 12 MCG Fluticasone Propionate (Flonase Nasal [place]) 2 sprays DAILY CAROLEE 12/03/16 09:00 01/02/17 08:59 12/05/16 12:33 2 SPRAYS Gabapentin (Neurontin Cap) 400 mg TID PO 12/03/16 09:00 01/02/17 08:59 12/05/16 12:33 400 MG Hydrochlorothiazide (Hydrochlorothiazide Tab) 25 mg DAILY PO 12/03/16 09:00 01/02/17 08:59 Future Hold 12/04/16 09:26 25 MG Lisinopril (Zestril Tab) 20 mg QPM PO 12/03/16 21:00 01/02/17 20:59 12/04/16 21:00 20 MG Metoprolol Tartrate (Lopressor Tab) 100 mg BID PO 12/03/16 09:00 01/02/17 08:59 12/04/16 21:00 100 MG Oxycodone HCl (Roxicodone Immediate Rel Tab) 15 mg QID PO 12/03/16 09:00 12/17/16 08:59 12/05/16 12:36 15 MG Trazodone HCl (Desyrel Tab) 300 mg HS PO 12/03/16 21:00 01/02/17 20:59 12/04/16 21:00 300 MG Docusate Sodium (coLACE CAP) 100 mg TID PRN PO 12/03/16 10:00 01/02/17 09:59 Enoxaparin Sodium (Lovenox Inj) 40 mg Q24H SC 12/03/16 12:00 01/02/17 11:59 Future Hold 12/04/16 12:46 40 MG Al Hydrox/Mg Hydrox/Simethicone (Maalox Max Susp) 15 ml Q4H PRN PO 12/03/16 08:15 01/02/17 08:14 Magnesium Hydroxide (Milk Of Magnesia Susp) 30 ml Q12H PRN PO 12/03/16 08:15 01/02/17 08:14 Ondansetron HCl (Zofran Inj) 4 mg Q6H PRN IV 12/03/16 08:15 01/02/17 08:14 Polyethylene (Miralax Powder Packet) 17 gm DAILY PRN PO 12/03/16 08:15 01/02/17 08:14 Miscellaneous Information (Consult Glycemic Management Pharmacy) 1 ea UD PRN N/A 12/03/16 09:21 01/02/17 09:20 Insulin Aspart (novoLOG ASPART) SLIDING SCALE ACHS SC 12/03/16 11:00 01/02/17 10:59 12/04/16 17:16 12 UNITS Glucose (Glucose 40% Gel) 15-30 GRAMS 15 GRAMS... UD PRN PO 12/03/16 09:45 01/02/17 09:44 Glucose (Glucose Chew Tab) 4-8 Tablets 4 Tabl... UD PRN PO 12/03/16 09:45 01/02/17 09:44 Dextrose (Dextrose 50% 50ML Syringe) 25-50ML OF 50% DW IV FOR... UD PRN IV 12/03/16 09:45 01/02/17 09:44 Glucagon (Glucagon Inj) 1 mg UD PRN SQ 12/03/16 09:45 01/02/17 09:44 Miscellaneous (Fentanyl Patch Remove & Waste) 1 ea Q3D N/A 12/06/16 09:59 01/05/17 09:58 Miscellaneous Information (Check Fentanyl Patch Placement) 1 ea QS N/A 12/03/16 16:00 01/02/17 15:59 12/05/16 08:06 1 EA Miscellaneous (Iv Fluids Completed) 1 ea PRN PRN N/A 12/03/16 12:00 12/03/17 11:59 Pantoprazole Sodium (Protonix Tab) 40 mg DAILY PO 12/04/16 09:00 01/03/17 08:59 12/05/16 12:32 40 MG Atorvastatin Calcium (Lipitor Tab) 10 mg QAM PO 12/05/16 09:00 01/04/17 08:59 12/05/16 12:32 10 MG Nitroglycerin 0.4 mg 0.4 mg Q5M PRN SL 12/05/16 09:15 01/04/17 09:14 Sodium Chloride (Nss 1000ml) 1,000 ml @ 125 mls/hr Q8H IV 12/05/16 09:06 01/04/17 09:05 12/05/16 12:35 125 MLS/HR Acetaminophen 650 mg 650 mg Q4H PRN PO 12/05/16 09:15 01/04/17 09:14 Sodium Chloride 250 ml @ 999 mls/hr Q16M PRN IV 12/05/16 09:06 01/04/17 09:05 Nicardipine HCl/ Sodium Chloride (Cardene Iv/Nss 250ml) 250 ml @ 0 mls/hr Q0M PRN IV 12/05/16 11:15 01/04/17 11:14 Miscellaneous Information (Pharmacist Discharge Med Rec Consult) 1 ea UD PRN N/A 12/05/16 12:45 01/04/17 12:44 Physical Exam Vital Signs (Past 24 Hrs): Date Time Temp Pulse Resp B/P Pulse Ox O2 Delivery O2 Flow Rate FiO2 12/05/16 12:15 78 16 168/102 95 Room Air 12/05/16 12:00 87 16 159/99 94 Room Air 12/05/16 11:45 72 14 167/99 94 Room Air 12/05/16 11:23 81 18 177/104 93 Room Air 12/05/16 11:18 84 12 176/95 95 Room Air 12/05/16 11:13 81 18 173/104 95 Room Air 12/05/16 11:09 80 16 149/125 94 Room Air 12/05/16 11:03 77 16 179/115 95 Room Air 12/05/16 10:58 73 16 191/115 94 Room Air 12/05/16 10:53 75 19 177/117 94 Room Air 12/05/16 10:48 74 18 190/116 93 Room Air 12/05/16 10:45 75 16 94 12/05/16 10:29 77 14 169/96 96 12/05/16 10:23 77 28 173/106 93 12/05/16 10:18 77 18 162/106 93 12/05/16 10:17 78 26 171/115 94 12/05/16 10:15 78 26 185/123 95 12/05/16 10:08 75 15 181/123 93 12/05/16 10:03 72 14 172/107 94 12/05/16 10:00 72 15 96 12/05/16 09:58 75 22 179/111 95 12/05/16 09:53 74 12 177/104 93 12/05/16 09:50 74 22 177/119 95 12/05/16 09:43 74 17 168/123 96 12/05/16 09:15 68 16 148/80 95 Room Air 12/05/16 09:00 70 16 145/85 96 Room Air 12/05/16 08:07 36.9 61 20 144/92 96 Room Air 12/05/16 07:30 Room Air 12/05/16 04:00 Room Air 12/05/16 00:30 37.0 71 18 128/75 94 Room Air 12/05/16 00:00 Room Air 12/04/16 20:00 Room Air 12/04/16 16:00 Room Air 12/04/16 15:48 36.7 69 16 148/84 95 Room Air 12/04/16 15:12 36.9 74 16 133/91 93 Room Air Physical Exam: Constitutional: appearance nourished, healthy, obese Ears, Nose, Mouth and Throat: mucous membranes moist, no injection and skin normal, eyes normal Cardiovascular: normal S-1 and S-2 and regular rate and rhythm Respiratory: clear to auscultation (CTA) course breath sound Musculoskeletal: no peripheral edema and good distal pulses Skin: no stigmata of neurocutaneous disease noted and normal and intact Eyes: extraocular muscles intact (EOMI) and pupils equal, round and reactive to light (PERRL) miotic NEUROLOGIC EXAMINATION: Mental status: Alert and interactive Oriented to full date and location Oriented to person Speech slurred speech unable to say no ifs ands or buts Cranial Nerves left facial droop, eye brow raise symmetric tongue midline Reflexes: Deep tendon reflexes were symmetrical and graded 2/5. Plantar responses were flexor. 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, left unable to lift arm or grasp, hip flex bilaterally 5/5, plantar flex ext 5/5 bilaterally Laboratory Results Past 24 Hours: 12/05/16 07:22 12/05/16 07:22 12/05/16 10:50 Test 12/04/16 16:11 12/05/16 07:22 12/05/16 09:50 12/05/16 10:50 Total Bilirubin 0.5 mg/dl (0.2-1) Aspartate Amino Transf (AST/SGOT) 18 U/L (15-37) Alanine Aminotransferase (ALT/SGPT) 36 U/L (12-78) Alkaline Phosphatase 85 U/L (45-117) Total Protein 6.7 gm/dl (6.4-8.2) Albumin 3.6 gm/dl (3.4-5.0) Globulin 3.1 gm/dl (2.5-4.0) Albumin/Globulin Ratio 1.2 (0.9-2) Amylase Level 33 U/L (25-115) Thyroid Stimulating Hormone (TSH) 2.710 uIu/ml (0.300-4.500) Red Blood Count 4.45 M/uL (4.7-6.1) Mean Corpuscular Volume 88.1 fL (80-100) Mean Corpuscular Hemoglobin 30.1 pg (25-34) Mean Corpuscular Hemoglobin Concent 34.2 g/dl (32-36) RDW Standard Deviation 40.1 fL (36.4-46.3) RDW Coefficient of Variation 12.5 % (11.5-14.5) Mean Platelet Volume 9.4 fL (7.4-10.4) Anion Gap 9.0 mmol/L (3-11) Est Creatinine Clear Calc Drug Dose 121.2 ml/min Estimated GFR () 107.1 Estimated GFR (Non- 92.4 BUN/Creatinine Ratio 23.3 (10-20) Calcium Level 8.4 mg/dl (8.5-10.1) Activated Partial Thromboplast Time 46.6 SECONDS (21.0-31.0) Partial Thromboplastin Ratio 1.8 Magnesium Level 2.2 mg/dl (1.8-2.4) Test 12/05/16 12:19 Bedside Glucose 139 mg/dl (70-99) Imaging CT head-No acute intracranial abnormality. There is contrast within the brain from the recent cardiac catheterization. TTE Procedure Details * Left Ventricle The left ventricle is normal in size. There is mild concentric left ventricular hypertrophy. Left ventricular systolic function is normal. Ejection Fraction = 55-60%. The left ventricular wall motion is normal. * Pericardium/Pleural There is no pericardial effusion. Impression 41 year old male s/p cardiac cath with stroke symptoms and tPa administered Plan 1. MRI with and without contrast brain hold until contrast from cardiac cath is no longer present 2. start plavix 75 mg once protocol is met for tPa administration 3. permissive hypertension 4. hypercoag work up 5. PT/OT for discharge needs 6. stress stop smoking 7. cholestrol control needed 8. HTN control once past critical profusion protocol 9. DM control optimize 10. further recommendations once MRI is completed I have seen and discussed above patient with Dr Phylicia Arredondo, neurology PT seen and examined, I have reviewed the events of today, vitals, CTs, CTA showing no vascular occlusion and MRI showing R MCA infarct without mass effect. Exam notable for R gaze preference,PERRL, unable to reliably visualize fundus extinction of double simultaneous stimulation, L central facial weakness , depressed gag bl. Pt is mildly sleepy, no right left confusion or denial. Motor, purposeful on the right UE and RLE, 0/5 to painful stim on the left, decreased sensation to LT on left. LUE LLE reflexes diminished compared to right , toes mute. Cerebellar testing unable to be performed. IMpression: Likely embolic R MCA infarct post cardiac catherization., sp TPA. clinical worsening without evidence of hemorrhagic transformation or carotid or siphon or mca occlusion. Monitor closely for decline, if so reimage. Consider transfer. Avoid hypotension, antiplt tx to be resumed tomorrow as per TPA protocol. I discussed with Dr Quintero who spoke to stroke neurology Charlene, Dr Andres. Will follow with you.
[2016-12-05 13:54] LABS: ESTIMATED AVERAGE GLUCOSE 192 mg/dl; HA1C FLAG Normal (Normal)
--- NOTE | 2016-12-05 14:49 | Pharmacy Progress Note ---
Glycemic Control: Progress Nt Date of Service Dec 05, 2016. Scope Glycemic Pharmacist consulted by Dr Garcia on 12/03/16 for glycemic control and to write orders per [facility] inpatient glycemic control protocol. Objective Accuchecks BSG (last 24hrs): Test 12/04/16 16:11 12/04/16 16:18 12/04/16 20:29 12/05/16 07:22 Random Glucose 148 mg/dl (70-99) 157 mg/dl (70-99) Bedside Glucose 154 mg/dl (70-99) 133 mg/dl (70-99) Test 12/05/16 07:52 12/05/16 09:23 12/05/16 12:19 Bedside Glucose 134 mg/dl (70-99) 135 mg/dl (70-99) 139 mg/dl (70-99) Laboratory Data (last 24hrs) Test 12/04/16 16:11 12/05/16 07:22 12/05/16 10:50 Anion Gap 11.0 mmol/L 9.0 mmol/L BUN/Creatinine Ratio 22.4 23.3 Blood Urea Nitrogen 22 mg/dl 23 mg/dl Creatinine 1.00 mg/dl 1.00 mg/dl Potassium Level 4.4 mmol/L mmol/L 4.4 mmol/L Sodium Level 138 mmol/L 139 mmol/L White Blood Count 8.00 K/uL Hemoglobin A1c 8.3 % HbA1c: Test 12/05/16 10:50 Hemoglobin A1c 8.3 % (4.5-5.6) H Recent Pertinent Medications Outpatient Anti-diabetic Regimen: * Metformin 500 mg PO BIDM * Glipizide XR 10 PO QD * A1c = 7.4 % 10/2016 The patient is currently receiving: * Correctional Insulin: Novolog Correction per scale ACHS Goal Range: Low 100 mg/dL - High 140 mg/dL Correction Factor: 25 mg/dL/unit * Prandial insulin: Per carb ratio of 1 unit per 9 grams CHO consumed Risk Factors for Insulin Resistance: * Diet Assessment & Plan ASSESSMENT: 12/03/16 * 41 yo T2D M admitted with chest pain/SOB, BSG 191 mg/dL * A1c from 10/2016 is 7.4% which indicates good glycemic control as an outpatient * I plan to initiate weight-based Novolog with lunch and hold outpatient orals * ADA & AACE recommend a goal blood sugar range 140-180 mg/dl for the majority of critically ill & non-critically ill patients. However, more stringent targets may be selected in individual cases. Decrease goal range to 100-140 mg/ dL. 12/05/16 * Stroke alert today- TPA administered and patient transferred to ICU * He has received 0 units of insulin today which I assume will continue as patient remains NPO * Follow-up tomorrow if/when diet advanced PLAN FOR INPATIENT GLYCEMIC CONTROL: * Hold outpatient oral diabetes medications * No basal insulin at this time * Correctional Insulin with NOVOLOG per scale ACHS or Q6hrs while NPO * Goal Range: Low 100 mg/dL - High 140 mg/dL * Correction Factor: 25 mg/dL/unit * Nutritional / Prandial insulin per carb ratio of 1 unit per 9 grams CHO consumed * A1c current- added to D/C instructions * Please note that the plan above was derived based on current level of insulin resistance and hospital stress. These recommendations are appropriate for inpatient admission only. Plan of care upon discharge will need to be reassessed to avoid potential outpatient hypo/hyperglycemia. Thank you.
--- NOTE | 2016-12-05 15:10 | DIAGNOSTIC IMAGING REPORT ---
HEAD CT NONCONTRAST CT DOSE: 823.94 mGycm HISTORY: Left-sided weakness. headache TECHNIQUE: Multiaxial CT images of the head were performed without the use of intravenous contrast. Automated exposure control was utilized for this study. Comparison: Head CT 12/05/2016. Findings: The paranasal sinuses and mastoid air cells are clear. The calvarium and skull base are intact. The ventricles and sulci are within normal limits. There is no mass, hematoma, midline shift, or acute infarct. Impression: No acute intracranial abnormality. Electronically signed by: Avila Carney M.D. 12/05/2016 3:09 PM Dictated Date/Time: 12/05/2016 2:59 PM
[2016-12-05] MEDS ORDERED: ACETYLCYSTEINE IV 21 HOUR REGIMEN IV STA (15:29)
[2016-12-05] MEDS ORDERED: LACTATED RINGER'S 1000ML 1,000 ML IV ONE (15:30)
[2016-12-05] MEDS ORDERED: OPTIRAY 320 IV PRN (15:45)
[2016-12-05] MEDS ORDERED: ACETYLCYSTEINE IV ONE (16:00)
[2016-12-05] MEDS ORDERED: SODIUM CHLORIDE 0.9% IV ONE (16:00)
--- NOTE | 2016-12-05 16:12 | PROGRESS NOTE ---
DATE: 12/05/2016 REHABILITATION NOTE Thank you for allowing me to see Mr. Ryan in consultation, request for rehabilitation evaluation. History is gathered from the patient, supplemented with discussion with his daughter and his son-in-law. I had an opportunity to meet the patient at the bedside and review his chart. HISTORY OF PRESENT ILLNESS: Mr. Ryan is a 41-year-old male with a notable history of hypertension, dyslipidemia with elevated triglycerides, type 2 diabetes, obesity, obstructive sleep apnea with poor tolerance to CPAP, status post prior uvulectomy, history of bipolar disease and intermittent history of chest pain, for which he has undergone prior evaluation in [place] and most recently at [facility], was admitted on 10/31/2016 with chest pain with no evidence of myocardial infarction. Further testing evaluations were initiated. The patient was unable to complete testing due to complaints of chronic hip pain. He presented to the Emergency Room at [facility] from his home in [place] with chest pain and abnormal EKG. He was seen in consultation by Dr. Gume Berger. He was taken to the quality lab technician this morning and while still on the table, he developed left-sided weakness and slurred speech. He was returned to the Emergency Room, a tele stroke was called and he was offered TPA. He was admitted to the ICU for ongoing care. CT scan was undertaken, a stroke alert was called. CT of the head was completed on 12/05, that showed no intracranial abnormality. He was seen in neurologic consultation by Phylicia Vora in conjunction with Dr. Phylicia Arredondo. He has been recommended for an MRI without contrast of the brain. Once the contrast from the cardiac cath has cleared, it is estimated this procedure will be done tomorrow. In the interim, he is to be started on Plavix ____. PHYSICAL EXAMINATION: GENERAL: Accompanied by his son-in-law and daughter. He is alert, cooperative. Continues to have a moist cough, difficulty in clearing all his secretions. There is no drooling. NEUROLOGIC: Screening cranial nerve evaluation notes a right gaze preference, difficulty in tracking his eyes across the midline. He has evidence of left facial droop. Motor evaluation notes dense left hemiparesis, arm much greater than leg. He is unable to shoulder shrug. He has no active motion of his right upper extremity proximal through distal on the left arm. Left lower extremity notes partial hip flexion, partial knee extension with support beneath his knee. He has incomplete dorsiflexion and plantarflexion on the left. Right leg demonstrates good strength to gait, slight resistance proximally through distally. Right arm strength is intact. Sensory exam to light touch, painful pressure is intact at the right side. Left side has marked decrease in pain and light touch, both his arm and leg. Plantar response was nonreactive. SUMMATION: ____ summarized as follows: A. A 41-year-old right-handed white male with multiple cerebrovascular, cardiovascular risk factors including hypertension, hyperlipidemia, type 2 diabetes, obesity, obstructive sleep apnea. B. Bipolar disorder. C. Narcotic dependent chronic pain. D. The patient is chronically disabled with back pain and right hip pain. He anticipates seeing surgery. E. Active smoker and chews tobacco. F. Clinical evidence of post-cardiac cath, acute left hemiparesis with a negative CT scan and MRI pending. The patient has dense paresis, arm greater than leg with mild speech impairment and associated sensory loss. RECOMMENDATIONS: Recommend referral to OT, PT and speech therapy. We will track and follow, would estimate that he would require inpatient rehabilitation once he is cleared medically. Thank you for allowing me to share in the care of your patient.
--- NOTE | 2016-12-05 16:19 | Critical Care Consultation ---
Critical Care Consultation Date of Consultation: Dec 05, 2016. Attending Physician: Salinas Hicks DO Reason for Consultation: Stroke s/p TPA History of Present Illness 41 year old with a H Hypertension, Diabetes, Asthma, GERD, Anxiety disorder, JOSE, bipolar disorder was admitted on 12/03 with chest pain which started a night prior to arrival . He had cardiac catheterization done this morning at about 9.13 AM and while he was being repositioned after the procedure he developed left sided weakness and slurred speech. His last known well time was 9.12 AM. A stroke alert was called . CT scan was negative for any acute bleed and after consultation with [facility] , he was given TPA at about 10.15 AM. TPA administration was delayed due to management of acute bleeding diathesis . He had received 5000 units of IV heparin during his cardiac catheterization and his PTT was elevated at 46.6, he was then given 25 mg of protamine sulfate after which he received TPA . Initial NIHSS was about 10-11 and later NIHSS was 5. His BP was elevated over 190/115 and he received 10 mg labetolol X2. He was started on nicardipine drip to keep post TPA BP <180/105 cardene was started at around 1PM at 5 mcg and increased to 7.5 at around 1.45 PM. He developed Left arm weakness at 1.50-2 PM and he was complaining about headache and left sided arm weakness and loss of sensation along his eft side., by 2.30Pm he was flaccid He does have a strong family history of stroke in his father and his grandmother had multiple strokes. He is a smoker and also chews tobacco. Past Medical/Surgical History DM, HTN, GERD, anxiety, Bipolar disorder, asthma Family History Diabetes mellitus FH: cancer FH: lung disease FHx: gallbladder disease FHx: heart disease Hypertension Kidney disease Kidney stones Social History Smoking Status: Former Smoker Smokeless Tobacco Use: Yes Drug Use: none Marital Status: Housing Status: lives with family Occupation Status: disabled Allergies Coded Allergies: Hydrocodone (Verified Allergy, Unknown, hives, itching, 12/03/16) Tramadol (Unverified Allergy, Unknown, VOMITING, 12/03/16) Home Medications Scheduled Amlodipine (Norvasc), 5 MG PO DAILY Aspirin (Aspirin Ec), 81 MG PO DAILY Budesonide/Formoterol Fumarate (Symbicort 160/4.5 Inhaler), 2 PUFFS INH BID Diazepam (Valium), 5 MG PO QID Dicyclomine Hcl (Bentyl), 20 MG PO QID Fentanyl (Fentanyl), 12 MCG TD [id number] Fluticasone Propionate (Nasal) (Flonase Allergy Relief), 2 SPRAYS CAROLEE DAILY Gabapentin (Gabapentin), 400 MG PO TID Glipizide (Glipizide Er), 10 MG PO DAILY Hydrochlorothiazide (Hydrochlorothiazide), 25 MG PO DAILY Lisinopril (Lisinopril), 20 MG PO QPM Metformin Hcl Er (Glucophage Er), 500 MG PO BID Metoprolol Tartrate (Lopressor) (Lopressor), 100 MG PO BID Montelukast Sodium (Singulair), 10 MG PO DAILY Omeprazole (Prilosec), 20 MG PO TID Oxycodone Hcl (Roxicodone), 15 MG PO QID Trazodone Hcl (Trazodone), 300 MG PO HS Scheduled PRN Docusate Sodium (Stool Softener), 100 MG PO TID PRN for Constipation Potassium Ext Rel (Klor-Con), 20 MEQ PO DAILY PRN for WHEN TAKING LASIX Current Inpatient Medications Current Inpatient Medications Medications (Trade) Dose Ordered Sig/Ney Route Start Time Stop Time Status Last Admin Dose Admin Ioversol (Optiray 320) 100 ml UD PRN IV 12/03/16 05:30 12/07/16 05:29 Amlodipine Besylate (Norvasc Tab) 5 mg DAILY PO 12/03/16 09:00 01/02/17 08:59 12/05/16 12:33 5 MG Aspirin (Ecotrin Tab) 81 mg DAILY PO 12/03/16 09:00 01/02/17 08:59 12/05/16 08:06 81 MG Budesonide/ Formoterol Fumarate (Symbicort 160/ 4.5 Inh) 2 puffs BID INH 12/03/16 09:00 01/02/17 08:59 12/05/16 12:34 2 PUFFS Diazepam (Valium Tab) 5 mg QID PO 12/03/16 09:00 01/02/17 08:59 12/05/16 12:36 5 MG Dicyclomine HCl (Bentyl Tab) 20 mg QID PO 12/03/16 09:00 01/02/17 08:59 12/05/16 13:31 20 MG Fentanyl (Duragesic Patch) 12 mcg Q72H TD 12/03/16 10:00 12/17/16 09:59 12/03/16 10:35 12 MCG Fluticasone Propionate (Flonase Nasal [place]) 2 sprays DAILY CAROLEE 12/03/16 09:00 01/02/17 08:59 12/05/16 12:33 2 SPRAYS Gabapentin (Neurontin Cap) 400 mg TID PO 12/03/16 09:00 01/02/17 08:59 12/05/16 13:30 400 MG Hydrochlorothiazide (Hydrochlorothiazide Tab) 25 mg DAILY PO 12/03/16 09:00 01/02/17 08:59 Future Hold 12/04/16 09:26 25 MG Lisinopril (Zestril Tab) 20 mg QPM PO 12/03/16 21:00 01/02/17 20:59 12/04/16 21:00 20 MG Metoprolol Tartrate (Lopressor Tab) 100 mg BID PO 12/03/16 09:00 01/02/17 08:59 12/05/16 13:30 100 MG Oxycodone HCl (Roxicodone Immediate Rel Tab) 15 mg QID PO 12/03/16 09:00 12/17/16 08:59 12/05/16 12:36 15 MG Trazodone HCl (Desyrel Tab) 300 mg HS PO 12/03/16 21:00 01/02/17 20:59 12/04/16 21:00 300 MG Docusate Sodium (coLACE CAP) 100 mg TID PRN PO 12/03/16 10:00 01/02/17 09:59 Enoxaparin Sodium (Lovenox Inj) 40 mg Q24H SC 12/03/16 12:00 01/02/17 11:59 Future Hold 12/04/16 12:46 40 MG Al Hydrox/Mg Hydrox/Simethicone (Maalox Max Susp) 15 ml Q4H PRN PO 12/03/16 08:15 01/02/17 08:14 Magnesium Hydroxide (Milk Of Magnesia Susp) 30 ml Q12H PRN PO 12/03/16 08:15 01/02/17 08:14 Ondansetron HCl (Zofran Inj) 4 mg Q6H PRN IV 12/03/16 08:15 01/02/17 08:14 Polyethylene (Miralax Powder Packet) 17 gm DAILY PRN PO 12/03/16 08:15 01/02/17 08:14 Miscellaneous Information (Consult Glycemic Management Pharmacy) 1 ea UD PRN N/A 12/03/16 09:21 01/02/17 09:20 Insulin Aspart (novoLOG ASPART) SLIDING SCALE ACHS SC 12/03/16 11:00 01/02/17 10:59 12/04/16 17:16 12 UNITS Glucose (Glucose 40% Gel) 15-30 GRAMS 15 GRAMS... UD PRN PO 12/03/16 09:45 01/02/17 09:44 Glucose (Glucose Chew Tab) 4-8 Tablets 4 Tabl... UD PRN PO 12/03/16 09:45 01/02/17 09:44 Dextrose (Dextrose 50% 50ML Syringe) 25-50ML OF 50% DW IV FOR... UD PRN IV 12/03/16 09:45 01/02/17 09:44 Glucagon (Glucagon Inj) 1 mg UD PRN SQ 12/03/16 09:45 01/02/17 09:44 Miscellaneous (Fentanyl Patch Remove & Waste) 1 ea Q3D N/A 12/06/16 09:59 01/05/17 09:58 Miscellaneous Information (Check Fentanyl Patch Placement) 1 ea QS N/A 12/03/16 16:00 01/02/17 15:59 12/05/16 08:06 1 EA Miscellaneous (Iv Fluids Completed) 1 ea PRN PRN N/A 12/03/16 12:00 12/03/17 11:59 Pantoprazole Sodium (Protonix Tab) 40 mg DAILY PO 12/04/16 09:00 01/03/17 08:59 12/05/16 12:32 40 MG Atorvastatin Calcium (Lipitor Tab) 10 mg QAM PO 12/05/16 09:00 01/04/17 08:59 12/05/16 12:32 10 MG Nitroglycerin 0.4 mg 0.4 mg Q5M PRN SL 12/05/16 09:15 01/04/17 09:14 Sodium Chloride (Nss 1000ml) 1,000 ml @ 125 mls/hr Q8H IV 12/05/16 09:06 01/04/17 09:05 12/05/16 12:35 125 MLS/HR Acetaminophen 650 mg 650 mg Q4H PRN PO 12/05/16 09:15 01/04/17 09:14 Sodium Chloride 250 ml @ 999 mls/hr Q16M PRN IV 12/05/16 09:06 01/04/17 09:05 Nicardipine HCl/ Sodium Chloride (Cardene Iv/Nss 250ml) 250 ml @ 0 mls/hr Q0M PRN IV 12/05/16 11:15 01/04/17 11:14 12/05/16 13:00 50 MLS/HR Miscellaneous Information (Pharmacist Discharge Med Rec Consult) 1 ea UD PRN N/A 12/05/16 12:45 01/04/17 12:44 Review of Systems Constitutional: No chills, No fever Eyes: No worsening of vision ENT: No hearing loss Respiratory: No cough, No shortness of breath, No sputum Cardiovascular: No chest pain Abdomen: No nausea, No pain, No vomiting Neurologic: + numbness/tingling, + problem reported (slurring of speech), + weakness Physical Exam Date Time Temp Pulse Resp B/P Pulse Ox O2 Delivery O2 Flow Rate FiO2 12/05/16 12:30 36.7 88 20 192/127 95 Room Air 12/05/16 12:15 78 16 168/102 95 Room Air 12/05/16 12:00 87 16 159/99 94 Room Air 12/05/16 11:45 72 14 167/99 94 Room Air 12/05/16 11:23 81 18 177/104 93 Room Air 12/05/16 11:18 84 12 176/95 95 Room Air 12/05/16 11:13 81 18 173/104 95 Room Air 12/05/16 11:09 80 16 149/125 94 Room Air 12/05/16 11:03 77 16 179/115 95 Room Air 12/05/16 10:58 73 16 191/115 94 Room Air 12/05/16 10:53 75 19 177/117 94 Room Air 12/05/16 10:48 74 18 190/116 93 Room Air 12/05/16 10:45 75 16 94 12/05/16 10:29 77 14 169/96 96 12/05/16 10:23 77 28 173/106 93 12/05/16 10:18 77 18 162/106 93 12/05/16 10:17 78 26 171/115 94 12/05/16 10:15 78 26 185/123 95 12/05/16 10:08 75 15 181/123 93 12/05/16 10:03 72 14 172/107 94 12/05/16 10:00 72 15 96 12/05/16 09:58 75 22 179/111 95 12/05/16 09:53 74 12 177/104 93 12/05/16 09:50 74 22 177/119 95 12/05/16 09:43 74 17 168/123 96 12/05/16 09:15 68 16 148/80 95 Room Air 12/05/16 09:00 70 16 145/85 96 Room Air 12/05/16 08:07 36.9 61 20 144/92 96 Room Air 12/05/16 07:30 Room Air 12/05/16 04:00 Room Air 12/05/16 00:30 37.0 71 18 128/75 94 Room Air 12/05/16 00:00 Room Air 12/04/16 20:00 Room Air 12/04/16 16:00 Room Air 12/04/16 15:48 36.7 69 16 148/84 95 Room Air General Appearance: WD/WN, no apparent distress Head: normocephalic Eyes: PERRL, EOMI, + pertinent finding (right sided gaze.) ENT: hearing grossly normal Neck: supple Respiratory/Chest: chest non-tender, lungs clear, normal breath sounds Cardiovascular: regular rate, rhythm Abdomen/GI: normal bowel sounds, non tender, soft Neurologic/Psych: alert, oriented x 3, + abnormal appeals nurse II-XII (left sided facial droop. ), + facial droop (left sided), + motor weakness (LUE 0/5, LLE 0/5 ), + sensory deficit (decreased sensation on left side), + babinski Skin: normal color Laboratory Results Last 24 Hours Test 12/04/16 16:11 12/04/16 16:18 12/04/16 20:29 12/05/16 07:22 Sodium Level 138 mmol/L 139 mmol/L Potassium Level 4.4 mmol/L mmol/L Chloride Level 101 mmol/L 104 mmol/L Carbon Dioxide Level 26 mmol/L 26 mmol/L Anion Gap 11.0 mmol/L 9.0 mmol/L Blood Urea Nitrogen 22 mg/dl 23 mg/dl Creatinine 1.00 mg/dl 1.00 mg/dl Est Creatinine Clear Calc Drug Dose 120.2 ml/min 121.2 ml/min Estimated GFR () 107.1 107.1 Estimated GFR (Non- 92.4 92.4 BUN/Creatinine Ratio 22.4 23.3 Random Glucose 148 mg/dl 157 mg/dl Calcium Level 8.3 mg/dl 8.4 mg/dl Total Bilirubin 0.5 mg/dl Aspartate Amino Transf (AST/SGOT) 18 U/L Alanine Aminotransferase (ALT/SGPT) 36 U/L Alkaline Phosphatase 85 U/L Total Protein 6.7 gm/dl Albumin 3.6 gm/dl Globulin 3.1 gm/dl Albumin/Globulin Ratio 1.2 Amylase Level 33 U/L Thyroid Stimulating Hormone (TSH) 2.710 uIu/ml Bedside Glucose 154 mg/dl 133 mg/dl White Blood Count 8.00 K/uL Red Blood Count 4.45 M/uL Hemoglobin 13.4 g/dL Hematocrit 39.2 % Mean Corpuscular Volume 88.1 fL Mean Corpuscular Hemoglobin 30.1 pg Mean Corpuscular Hemoglobin Concent 34.2 g/dl RDW Standard Deviation 40.1 fL RDW Coefficient of Variation 12.5 % Platelet Count 198 K/uL Mean Platelet Volume 9.4 fL Magnesium Level mg/dl Test 12/05/16 07:52 12/05/16 09:23 12/05/16 09:50 12/05/16 10:50 Bedside Glucose 134 mg/dl 135 mg/dl Activated Partial Thromboplast Time 46.6 SECONDS Partial Thromboplastin Ratio 1.8 Potassium Level 4.4 mmol/L Estimated Average Glucose 192 mg/dl Hemoglobin A1c 8.3 % Magnesium Level 2.2 mg/dl Test 12/05/16 12:19 Bedside Glucose 139 mg/dl Diagnostic Results HEAD CT NONCONTRAST 9.[address] DOSE: 847.48 mGycm HISTORY: Stroke symptoms. TECHNIQUE: Multiaxial CT images of the head were performed without the use of intravenous contrast. Automated exposure control was utilized for this study. Comparison: Head CT 01/12/2014. Findings: The paranasal sinuses and mastoid air cells are clear. The calvarium and skull base are intact. The ventricles and sulci are within normal limits. There is no mass, hematoma, midline shift, or acute infarct. There is contrast within the brain from the recent catheterization. This limits evaluation for hemorrhage. However, no definite hemorrhage identified. No abnormal enhancement. Impression: No acute intracranial abnormality. There is contrast within the brain from the recent cardiac catheterization. [~ rep ct add3]] HEAD CT NONCONTRAST at 2.[address] DOSE: 823.94 mGycm HISTORY: Left-sided weakness. headache TECHNIQUE: Multiaxial CT images of the head were performed without the use of intravenous contrast. Automated exposure control was utilized for this study. Comparison: Head CT 12/05/2016. Findings: The paranasal sinuses and mastoid air cells are clear. The calvarium and skull base are intact. The ventricles and sulci are within normal limits. There is no mass, hematoma, midline shift, or acute infarct. Impression: No acute intracranial abnormality. CT HEAD ANGIO WITH CONTRAST CLINICAL HISTORY: Stroke. Status post TPA administration. TECHNIQUE: CT angiography of the head was performed in a dynamic helical fashion during intravenous administration of 117 cc of Optiray 320. MIP imaging was performed CT DOSE: COMPARISON STUDY: Noncontrast head CT dated to December 05, 2016 FINDINGS: There are no lesion suspicious for aneurysm. There are no major intracranial branch occlusions. The dural venous sinuses appear patent. There are no pathologically enhancing masses. There is no evidence of intraparenchymal hemorrhage. IMPRESSION: Unremarkable MR angiography of the head. Electronically signed by: Crow Frances M.D. 12/05/2016 5:[address] NECK ANGIO WITH CONTRAST CLINICAL HISTORY: Stroke. Status post TPA. COMPARISON STUDY: No previous studies for comparison. TECHNIQUE: CT angiography was performed from the aortic arch to the skull base. MIP imaging was performed. The patient was scanned in a dynamic helical fashion during intravenous administration of 117 cc of Optiray 320. CT DOSE: 644.60 mGy.cm Technique: CT angiogram of the carotid and vertebral arteries was obtained using intravenous contrast and 3-D reconstruction. NASCET criteria was utilized. Findings: The right carotid revealed no evidence of aneurysm and no evidence of dissection. There is no evidence of hemodynamic significant stenosis. The left carotid revealed no evidence of hemodynamic significant stenosis. There is no evidence of aneurysm. There is no evidence of dissection. There is a dominant left vertebral artery. There is no evidence of vertebral artery stenosis or dissection. IMPRESSION: No evidence of hemodynamically significant carotid or vertebral artery stenosis. No evidence of dissection. Electronically signed by: Crow Frances M.D. 12/05/2016 5:38 PM MRI OF THE BRAIN WITHOUT CONTRAST CLINICAL HISTORY: Acute stroke. TPA administration. COMPARISON STUDY: CT scan dated the 2016 FINDINGS: Sagittal T1, axial diffusion, proton density and T2 weighted axial, coronal FLAIR, and axial T1-weighted images were acquired. No intra or extra-axial mass lesions are visualized There is a moderate focus of restricted water diffusion in the right middle cerebral artery territory measuring 4.5 cm in diameter. This involves the insular cortex, portions the right posterior frontal lobe, and portions of the right anterior parietal lobe. There is no evidence of ventricular dilatation. Proton density T2-weighted and FLAIR images reveal there is subtle increased T2 signal in the region of the acute right MCA distribution infarct. There are small foci of increased T2 signal within the left frontal and parietal white matter likely on a small vessel basis, There are no abnormal flow voids. IMPRESSION: Moderate sized acute right middle cerebral artery territory infarct. MR ANGIOGRAPHY OF THE [place] NO CONTRAST CLINICAL HISTORY: Acute stroke. Patient status post TPA. COMPARISON STUDY: None. A 3-D [id number] MR angiographic sequence of the [place] was performed. Both the source and projection images were reviewed. The study is mildly limited from technical standpoint secondary to motion artifact. There is no evidence of major intracranial branch occlusion. There is no evidence of intracranial stenosis. There are no lesions suspicious for aneurysm. IMPRESSION: Unremarkable MR angiography of the [place]. Electronically signed by: Crow Frances M.D. 12/05/2016 6:30 PM Assessment & Plan 41 year old with a PMH Hypertension, Diabetes, Asthma, GERD, Anxiety disorder, JOSE, bipolar disorder s/p TPA after he developed left sided weakness and slurring of speech after cardiac catheterization at 9.15 AM , received TPA after protamine at 10.15 AM as he hd received 5000 heparin IV during the procedure and his PTT was elevated. Initially had left sided weakness with left sided facial droop with intact sensation . Nicardipine drip was started for BP >180/110 per protocol and adjusted per protocol. He later complained about left sided weakness and loss of sensation along the left side and about 40 mins later he was flaccid on the left side. CT head was ordered which was negative for acute hemorrhage. CTA neck was ordered which showed no evidence of hemodynamically significant carotid or vertebral artery stenosis with No evidence of dissection. CTA head was unremarkable. MRA : Unremarkable MR angiography of the [place]. MRI head without contrast: Moderate sized acute right middle cerebral artery territory infarct. Neuro: Acute Right MCA ischemic stroke: s/p TPA - Post TPA protocol - neuro checks and VS q15 min - BP control with nicardipine , goal range <180/105 - Aspirin , Plavix - Atorvastatin - TTE done 12/05: mild concentric left ventricular hypertrophy. Left ventricular systolic function is normal. Ejection Fraction = 55-60%. Left ventricular wall motion is normal. - CT head repeated at 1430: - CTA ordered after speaking with [facility] neurologist - MRI brain, MRA head and neck for tomorrow - Neurology consult - Speech eval - Speech therapy - PT/OT - Physiatry consult - Repeat CT in AM CVS: - HTN: - BP control with nicardipine drip goal range <180/105 but will maintain >140/100 for perfusion - Home meds- Lopressor 50 mg BID, Norvasc 5 mg, lisinopril 20 mg held currently Chest pain: s/p cardiac catheterization: - Right dominant coronary anatomy Mild to moderate diffuse atherosclerotic luminal irregularities Normal LV function Troponin X 3 negative Hypertriglyceridemia/Hypercholesterolemia Triglycerides > 600 Cholesterol > 200 - Atorvastatin 10 mg Endocrine: DM: hold home meds ISS Resp: stable at RA Asthma - Continue home meds GI/FEN: GERD: - Protonix Renal: At risk for contrast induced nephropathy s/p cardiac catheterization and CTA head - LR bolus and N-acetyl cysteine - Monitor Cr Psych: Bipolar disorder: - Continue home meds DVT prophylaxis: - Avoid chemical prophylaxis considering TPA administration Disposition Resident Physician Supervision Note: Dr. Jeanie Villagran was resident physician during care of patient. I separately evaluated patient and did history and exam. I discussed the case with the resident and generally agree with the findings and plan. Patient had significant resolution of the symptoms which occurred immediately after his heart catheterization. Approximately 1:30 in the afternoon the patient was complaining of severe headache and recurrence of the left-sided weakness. During that time the bedside nurse continued to titrate his fluctuating blood pressure. The weakness became worse and I evaluated the patient. At this point he had near flaccid paralysis of the left upper extremity with 1 out of 5 strength in the left lower extremity. He CT scan of the head was immediately ordered, found to be negative, I contacted [facility] tele-neurology, Dr. Jani Antoine, who had previously evaluated the patient. Summary recommendations were to obtain a CT angiogram of the head and neck to evaluate for acute thrombus that would possibly be amenable to intravascular clot retrieval. We discussed repeat dosing of the TPA , he was too far outside of the initial onset. During this timeframe I also discussed the case with Dr. Calvin who was likewise concerned for a subacute stroke. I also discussed the case with Dr. Gume Berger of cardiology. Given the recent load with the coronary angiogram I proceeded to hydrate the patient and started a Mucomyst prep in attempts to prevent a contrast-induced nephropathy. The patient's symptomatology continue to progress and a CTA was performed. This was reviewed immediately with radiology and was found to not demonstrate a obvious intravascular embolism. We proceeded with a stat MRI MRA of the brain to rule out subacute ischemia. Initial radiology interpretation was for a moderate sized acute middle cerebral artery territory infarct. After these findings immediately contacted [facility] tele- neurology and discussed the case again with Dr. Antoine. Dr. Antoine in consultation with Dr. Andres of [facility] neurology both felt the patient was not a candidate for any acute intervention, and unlikely to have significant swelling leading to a herniation syndrome and possibly requiring neurosurgical intervention. They were both in agreement that the patient should likely remain here at [facility], undergo frequent neuro checks, and if there is any further decline in the patient or hemorrhagic transformation be reconsulted for possible neurosurgical intervention at that time. After this conversation I discussed these impressions with Dr. Calvin of [facility] neurology. We discussed the likelihood of significant intracranial swelling, goal blood pressure, as well as the likelihood for inclement weather that may prevent the patient from air transport to [facility] in the event of acute decompensation. We will both in agreement that patient was unlikely a surgical candidate at this time and it would be medically reasonable for the patient to remain a [facility]. I had an extensive discussion with the patient, patient's significant other, and his 2 "sounds" (not biological, no legal adoption) who are his designated healthcare power of environmental attorney regarding the findings of above, subacute nature, discussions with [facility] neurology, discussion with Dr. Calvin, concerns for transfer, as well as interventions that may be needed should the patient decompensate. The patient does not exhibit clear capacity to consent at this time, exhibits disinhibition, and the family reports he is not acting himself. The patient's family consented to central venous access, arterial line, endotracheal intubation, possible tube thoracostomy in event he should decompensate requiring acute intervention to prevent intracranial swelling and possible herniation syndrome. Blood transfusion was also discussed , it was well known to the family that the patient was adamant in refusing any form of blood transfusion. Additionally it was brought to my attention from nursing staff as well as one of the patient's family members patient was able to obtain his belongings which reportedly contained home medication, and took several orange tablets. Additional family members, and the patient's significant other who indicate that the orange tablets are likely narcotics as the patient has been prescribed for severe chronic back pain for which she is on disability. Subsequently the patient's belongings have been removed from the room and nursing staff will be filing an incident report regarding this. The patient had numerous repeat evaluations by myself, I discussed the case several times with radiology, [facility], Dr. Dunaway of cardiology, as well as Dr. Calvin. There was extensive coordination of care, medication management, in discussion with the family regarding treatment and goals of care. Patient is critically ill due to ischemic cerebrovascular accident following a cardiac heart catheterization. I have personally spent 180 minutes of critical care time in the direct management of this patient. This is a life/limb threatening event. This includes time spent evaluating patient, direct bedside care, chart review, placing orders, interpretation of diagnostic studies, discussion with consultants, patient, and family members, as well as other required patient management activities. This time is exclusive of all separately billable procedures, and teaching time and separate from and in addition to any other critical care service time. Documented By: Alverto Quintero DO
[2016-12-05] MEDS ORDERED: ACETYLCYSTEINE IV SCH (16:30)
[2016-12-05] MEDS ORDERED: SODIUM CHLORIDE 0.9% IV SCH (16:30)
--- NOTE | 2016-12-05 16:33 | Progress Note ---
Subjective Date of Service: Dec 05, 2016. Subjective Pt evaluation today including: conversation w/ patient, physical exam, lab review, review of studies, conversation w/ networks software consultant, review of inpatient medication list Saw/examined the patient in room 111 patient went for cardiac cath this morning stroke alert called due to neurological deficits - left sided weakness, slurred speech telestroke - recommended tPA Saw the patient afterwards; he had slurring of speech +Left arm neglect, decreased sensation Denies pain Problem List Medical Problems: (1) Left sided chest pain Status: Acute Review of Systems Constitutional: No chills, No fever Respiratory: No cough, No shortness of breath, No sputum Cardiac: No chest pain Abdomen: No diarrhea, No nausea, No pain, No vomiting Neurologic: + paralysis (left arm), + problem reported (slurred speech), + weakness, No balance problems, No memory loss, No numbness/tingling, No vertigo Medications Current Inpatient Medications Medications (Trade) Dose Ordered Sig/Ney Route Start Time Stop Time Status Last Admin Dose Admin Ioversol (Optiray 320) 100 ml UD PRN IV 12/03/16 05:30 12/07/16 05:29 Amlodipine Besylate (Norvasc Tab) 5 mg DAILY PO 12/03/16 09:00 01/02/17 08:59 12/05/16 12:33 5 MG Aspirin (Ecotrin Tab) 81 mg DAILY PO 12/03/16 09:00 01/02/17 08:59 12/05/16 08:06 81 MG Budesonide/ Formoterol Fumarate (Symbicort 160/ 4.5 Inh) 2 puffs BID INH 12/03/16 09:00 01/02/17 08:59 12/05/16 12:34 2 PUFFS Diazepam (Valium Tab) 5 mg QID PO 12/03/16 09:00 01/02/17 08:59 12/05/16 12:36 5 MG Dicyclomine HCl (Bentyl Tab) 20 mg QID PO 12/03/16 09:00 01/02/17 08:59 12/05/16 13:31 20 MG Fentanyl (Duragesic Patch) 12 mcg Q72H TD 12/03/16 10:00 12/17/16 09:59 12/03/16 10:35 12 MCG Fluticasone Propionate (Flonase Nasal [place]) 2 sprays DAILY CAROLEE 12/03/16 09:00 01/02/17 08:59 12/05/16 12:33 2 SPRAYS Gabapentin (Neurontin Cap) 400 mg TID PO 12/03/16 09:00 01/02/17 08:59 12/05/16 13:30 400 MG Hydrochlorothiazide (Hydrochlorothiazide Tab) 25 mg DAILY PO 12/03/16 09:00 01/02/17 08:59 Future Hold 12/04/16 09:26 25 MG Lisinopril (Zestril Tab) 20 mg QPM PO 12/03/16 21:00 01/02/17 20:59 12/04/16 21:00 20 MG Metoprolol Tartrate (Lopressor Tab) 100 mg BID PO 12/03/16 09:00 01/02/17 08:59 12/05/16 13:30 100 MG Oxycodone HCl (Roxicodone Immediate Rel Tab) 15 mg QID PO 12/03/16 09:00 12/17/16 08:59 12/05/16 12:36 15 MG Trazodone HCl (Desyrel Tab) 300 mg HS PO 12/03/16 21:00 01/02/17 20:59 12/04/16 21:00 300 MG Docusate Sodium (coLACE CAP) 100 mg TID PRN PO 12/03/16 10:00 01/02/17 09:59 Enoxaparin Sodium (Lovenox Inj) 40 mg Q24H SC 12/03/16 12:00 01/02/17 11:59 Future Hold 12/04/16 12:46 40 MG Al Hydrox/Mg Hydrox/Simethicone (Maalox Max Susp) 15 ml Q4H PRN PO 12/03/16 08:15 01/02/17 08:14 Magnesium Hydroxide (Milk Of Magnesia Susp) 30 ml Q12H PRN PO 12/03/16 08:15 01/02/17 08:14 Ondansetron HCl (Zofran Inj) 4 mg Q6H PRN IV 12/03/16 08:15 01/02/17 08:14 Polyethylene (Miralax Powder Packet) 17 gm DAILY PRN PO 12/03/16 08:15 01/02/17 08:14 Miscellaneous Information (Consult Glycemic Management Pharmacy) 1 ea UD PRN N/A 12/03/16 09:21 01/02/17 09:20 Insulin Aspart (novoLOG ASPART) SLIDING SCALE ACHS SC 12/03/16 11:00 01/02/17 10:59 12/04/16 17:16 12 UNITS Glucose (Glucose 40% Gel) 15-30 GRAMS 15 GRAMS... UD PRN PO 12/03/16 09:45 01/02/17 09:44 Glucose (Glucose Chew Tab) 4-8 Tablets 4 Tabl... UD PRN PO 12/03/16 09:45 01/02/17 09:44 Dextrose (Dextrose 50% 50ML Syringe) 25-50ML OF 50% DW IV FOR... UD PRN IV 12/03/16 09:45 01/02/17 09:44 Glucagon (Glucagon Inj) 1 mg UD PRN SQ 12/03/16 09:45 01/02/17 09:44 Miscellaneous (Fentanyl Patch Remove & Waste) 1 ea Q3D N/A 12/06/16 09:59 01/05/17 09:58 Miscellaneous Information (Check Fentanyl Patch Placement) 1 ea QS N/A 12/03/16 16:00 01/02/17 15:59 12/05/16 08:06 1 EA Miscellaneous (Iv Fluids Completed) 1 ea PRN PRN N/A 12/03/16 12:00 12/03/17 11:59 Pantoprazole Sodium (Protonix Tab) 40 mg DAILY PO 12/04/16 09:00 01/03/17 08:59 12/05/16 12:32 40 MG Atorvastatin Calcium (Lipitor Tab) 10 mg QAM PO 12/05/16 09:00 01/04/17 08:59 12/05/16 12:32 10 MG Nitroglycerin 0.4 mg 0.4 mg Q5M PRN SL 12/05/16 09:15 01/04/17 09:14 Sodium Chloride (Nss 1000ml) 1,000 ml @ 125 mls/hr Q8H IV 12/05/16 09:06 01/04/17 09:05 12/05/16 12:35 125 MLS/HR Acetaminophen 650 mg 650 mg Q4H PRN PO 12/05/16 09:15 01/04/17 09:14 Sodium Chloride 250 ml @ 999 mls/hr Q16M PRN IV 12/05/16 09:06 01/04/17 09:05 Nicardipine HCl/ Sodium Chloride (Cardene Iv/Nss 250ml) 250 ml @ 0 mls/hr Q0M PRN IV 12/05/16 11:15 01/04/17 11:14 12/05/16 13:00 50 MLS/HR Miscellaneous Information 1 ea 1 ea UD PRN N/A 12/05/16 12:45 01/04/17 12:44 Lactated Ringer's (Lr 1000ml) 1,000 ml @ 999 mls/hr Q1H1M ONCE IV 12/05/16 15:30 12/05/16 16:30 Ioversol 100 ml 100 ml UD PRN IV 12/05/16 15:45 12/09/16 15:44 Acetylcysteine 57576 mg/Sodium Chloride 587.75 ml @ 1,175.5 mls/hr NOW ONCE IV 12/05/16 16:00 12/05/16 16:29 Acetylcysteine/ Sodium Chloride (Acetadote/Nss 500ml) 529.25 ml @ 132 mls/ hr TODAY@1630 IV 12/05/16 16:30 12/05/16 20:31 Objective Vital Signs Date Time Temp Pulse Resp B/P Pulse Ox O2 Delivery O2 Flow Rate FiO2 12/05/16 15:30 102 20 122/85 93 Nasal Cannula 2.0 12/05/16 15:00 93 12 144/81 94 Nasal Cannula 2.0 12/05/16 14:41 98 14 132/82 93 Nasal Cannula 2.0 12/05/16 14:30 104 22 166/92 90 Room Air 12/05/16 14:00 100 18 160/104 94 Room Air 12/05/16 13:45 101 21 201/125 93 Room Air 12/05/16 13:30 83 20 188/121 94 Room Air 12/05/16 13:00 78 14 183/107 95 Room Air 12/05/16 12:45 83 16 184/125 95 Room Air 12/05/16 12:30 36.7 88 20 192/127 95 Room Air 12/05/16 12:15 78 16 168/102 95 Room Air 12/05/16 12:00 87 16 159/99 94 Room Air 12/05/16 11:45 72 14 167/99 94 Room Air 12/05/16 11:23 81 18 177/104 93 Room Air 12/05/16 11:18 84 12 176/95 95 Room Air 12/05/16 11:13 81 18 173/104 95 Room Air 12/05/16 11:09 80 16 149/125 94 Room Air 12/05/16 11:03 77 16 179/115 95 Room Air 12/05/16 10:58 73 16 191/115 94 Room Air 12/05/16 10:53 75 19 177/117 94 Room Air 12/05/16 10:48 74 18 190/116 93 Room Air 12/05/16 10:45 75 16 94 12/05/16 10:29 77 14 169/96 96 12/05/16 10:23 77 28 173/106 93 12/05/16 10:18 77 18 162/106 93 12/05/16 10:17 78 26 171/115 94 12/05/16 10:15 78 26 185/123 95 12/05/16 10:08 75 15 181/123 93 12/05/16 10:03 72 14 172/107 94 12/05/16 10:00 72 15 96 12/05/16 09:58 75 22 179/111 95 12/05/16 09:53 74 12 177/104 93 12/05/16 09:50 74 22 177/119 95 12/05/16 09:43 74 17 168/123 96 12/05/16 09:15 68 16 148/80 95 Room Air 12/05/16 09:00 70 16 145/85 96 Room Air 12/05/16 08:07 36.9 61 20 144/92 96 Room Air 12/05/16 07:30 Room Air 12/05/16 04:00 Room Air 12/05/16 00:30 37.0 71 18 128/75 94 Room Air 12/05/16 00:00 Room Air 12/04/16 20:00 Room Air Physical Exam General Appearance: no apparent distress Eyes: + pertinent finding (right facial drooping; difficult to examine as patient cannot move facial muscles currently; slurred speech noted) Respiratory/Chest: lungs clear, normal breath sounds, no respiratory distress, no accessory muscle use Cardiovascular: regular rate, rhythm, no edema, no murmur Neurologic/Psychiatric: alert, + facial droop (right), + motor weakness (left arm), + sensory deficit (left arm/hand up to shoulder) Laboratory Results Last 24 Hours Test 12/04/16 20:29 12/05/16 07:22 12/05/16 07:52 12/05/16 09:23 Bedside Glucose 133 mg/dl 134 mg/dl 135 mg/dl White Blood Count 8.00 K/uL Red Blood Count 4.45 M/uL Hemoglobin 13.4 g/dL Hematocrit 39.2 % Mean Corpuscular Volume 88.1 fL Mean Corpuscular Hemoglobin 30.1 pg Mean Corpuscular Hemoglobin Concent 34.2 g/dl RDW Standard Deviation 40.1 fL RDW Coefficient of Variation 12.5 % Platelet Count 198 K/uL Mean Platelet Volume 9.4 fL Sodium Level 139 mmol/L Potassium Level mmol/L Chloride Level 104 mmol/L Carbon Dioxide Level 26 mmol/L Anion Gap 9.0 mmol/L Blood Urea Nitrogen 23 mg/dl Creatinine 1.00 mg/dl Est Creatinine Clear Calc Drug Dose 121.2 ml/min Estimated GFR () 107.1 Estimated GFR (Non- 92.4 BUN/Creatinine Ratio 23.3 Random Glucose 157 mg/dl Calcium Level 8.4 mg/dl Magnesium Level mg/dl Test 12/05/16 09:50 12/05/16 10:50 12/05/16 12:19 Activated Partial Thromboplast Time 46.6 SECONDS Partial Thromboplastin Ratio 1.8 Potassium Level 4.4 mmol/L Estimated Average Glucose 192 mg/dl Hemoglobin A1c 8.3 % Magnesium Level 2.2 mg/dl Bedside Glucose 139 mg/dl Assessment and Plan This is a 41 year old male with PMH of HTN, DM2, hypertriglyceridemia, asthma, tobacco use disorder presents with left sided chest pain Neurological Deficits Left sided sensory and motor weakness slurred speech s/p tPA neurochecks as per protocol neurological consultation Head CT negative x 2 PT/OT/speech Chest Pain r/o ACS 12/05 s/p cardiac cath mild disease; nonobstructive chest pain not likely cardiac in nature appreciate cardiology input 12/04 Patient presents with left sided chest pain Pain around 5/10 this morning, but improved with SL nitro cardiac enzymes negative x [address] changes, will repeat EKG continue aspirin, b-kirk has had cardiac cath over 5 years prior with some "build-up" as per patient due to risk factors, will consult cardiology for further input Hypertriglyceridemia/Hypercholesterolemia Triglycerides > 600 Cholesterol > 200 will start statin DM2 hold oral agents insulin sliding scale pharmacy glycemic control consult HTN 12/05 nicardipine drip uptitrate to keep blood pressure from > 180/100 as per tpa protocol; can add b-kirk if needed 12/04 blood pressures are stable today elevated on presentation continue amlodipine, EDWARD-I, b-kirk Asthma stable, no exacerbation continue home inhalers GERD cont. PPI Bipolar Disorder continue home medications DVT ppx Lovenox FULL CODE
[2016-12-05] MEDS ORDERED: LABETALOL HCL IV 5 MG/ML 20ML IV PRN ×2 (17:00→20:00)
[2016-12-05] MEDS ORDERED: HydrALAZINE HCL 20 MG/ML VIAL IV. PRN ×2 (17:00→20:00)
--- NOTE | 2016-12-05 17:12 | CARDIAC CATH REPORT ---
DATE OF PROCEDURE: 12/05/2016. INDICATIONS: Chest pain, abnormal EKG, poor tolerance of prior stress interrogations. BRIEF HISTORY: The patient is a 41-year-old male with strong family history of premature coronary artery disease, history of hypertension labile with 2 hospitalizations with chest pain and discomfort. He had undergone prior diagnostic cardiac catheterization in 2008 which demonstrated early diffuse coronary atherosclerosis per patient report. He has now been hospitalized with chest discomfort. Attempts at stress testing were poorly tolerated, indeterminate in etiology. She once again represents with chest discomfort at rest reproduced in hospital. He is referred for diagnostic cardiac catheterization after procedure and risks explained in detail. ACCESS: Right radial artery. CATHETERS: A 6-Nepali long glide sheath, 5-Nepali brachial 3.5, 5-Nepali JR4, 5-Nepali straight pigtail. CONTRAST: Nonionic x134 mL. MEDICATIONS: Local anesthesia to the access site was performed with 1% lidocaine. After intra-arterial sheath placed intra-arterial injection of 250 mcg of nicardipine and 200 mcg of nitroglycerin was administered. After central access gained, 5000 units IV heparin was administered. SEDATION: Start time 0838, stop time 0903. Sedation 1 mg IV Versed only with patient conversant throughout the case. RADIATION EXPOSURE: 5.6 minutes fluoroscopy, 939 milligrays, DAP score 6453. RESULTS: CORONARY ANGIOGRAPHY: LEFT MAIN: Short and bifurcates to give rise to left anterior descending and left coronaries. There is no disease in the left main. LEFT ANTERIOR DESCENDING: Left anterior descending is type 3 in distribution. It gives rise to a large septal branch and a large diagonal branch in its proximal third then courses to terminate beyond the apex. Within the left anterior descending, there are diffuse luminal irregularities with 30% at the end of the proximal 3rd and 40% in its apical segment but no high-grade obstructive disease. LEFT CIRCUMFLEX: The left circumflex is large but nondominant and gives rise to 2 small marginal branches and a trifurcating obtuse marginal. The most superior branch is long and reaches to the apex and bifurcates there. There is mild luminal irregularities throughout its vessels. There is a 20% physiologic taper at its origin. RIGHT CORONARY ARTERY: The right coronary artery is large and dominant in distribution. It gives rise to a long posterior descending artery and a long posterior ventricular branch at the AV groove. Within the right coronary artery, there are diffuse luminal irregularities as well, as well as a smooth 30% narrowing in its proximal mid portion of the posterior descending artery. LEFT VENTRICULAR ANGIOGRAPHY: The LV function was normal to hyperdynamic. There were no wall motion abnormalities. Estimated ejection fraction was 65%. HEMODYNAMICS: Initial aortic root pressure was 138/92 with a mean of 113. LV pressure following coronary angiography 160/20 with LVEDP of 25. On pullback to the aortic root, there was no transaortic valve gradient. Closing pressure was 146/89 with a mean of 114. COMPLICATIONS: Note following completion of the case and removal of intra-arterial sheath the patient was noted to have a change in mental status with dysarthric speech and left-sided neglect. A stroke alert was summoned and patient referred for CAT scan and ICU management. FINAL IMPRESSIONS: 1. Right dominant coronary anatomy. 2. Diffuse early coronary atherosclerosis all vasculature with 30-40% narrowings within the proximal and distal left anterior descending, most significant. 3. Normal left ventricular systolic function. 4. Systolic and diastolic hypertension. 5. Procedure complicated by acute neurologic changes following completion of imaging and case.
--- NOTE | 2016-12-05 17:40 | DIAGNOSTIC IMAGING REPORT ---
CT NECK ANGIO WITH CONTRAST CLINICAL HISTORY: Stroke. Status post TPA. COMPARISON STUDY: No previous studies for comparison. TECHNIQUE: CT angiography was performed from the aortic arch to the skull base. MIP imaging was performed. The patient was scanned in a dynamic helical fashion during intravenous administration of 117 cc of Optiray 320. CT DOSE: 644.60 mGy.cm Technique: CT angiogram of the carotid and vertebral arteries was obtained using intravenous contrast and 3-D reconstruction. NASCET criteria was utilized. Findings: The right carotid revealed no evidence of aneurysm and no evidence of dissection. There is no evidence of hemodynamic significant stenosis. The left carotid revealed no evidence of hemodynamic significant stenosis. There is no evidence of aneurysm. There is no evidence of dissection. There is a dominant left vertebral artery. There is no evidence of vertebral artery stenosis or dissection. IMPRESSION: No evidence of hemodynamically significant carotid or vertebral artery stenosis. No evidence of dissection. Electronically signed by: Crow Frances M.D. 12/05/2016 5:38 PM Dictated Date/Time: 12/05/2016 5:37 PM
--- NOTE | 2016-12-05 17:45 | DIAGNOSTIC IMAGING REPORT ---
ADDENDUM Addendum: The impression should read unremarkable CT angiogram of the head. Electronically signed by: Avila Carney M.D. 12/06/2016 11:09 AM Dictated Date/Time: 12/06/2016 11:[address] HEAD ANGIO WITH CONTRAST CLINICAL HISTORY: Stroke. Status post TPA administration. TECHNIQUE: CT angiography of the head was performed in a dynamic helical fashion during intravenous administration of 117 cc of Optiray 320. MIP imaging was performed CT DOSE: COMPARISON STUDY: Noncontrast head CT dated to December 05, 2016 FINDINGS: There are no lesion suspicious for aneurysm. There are no major intracranial branch occlusions. The dural venous sinuses appear patent. There are no pathologically enhancing masses. There is no evidence of intraparenchymal hemorrhage. IMPRESSION: Unremarkable MR angiography of the head. Electronically signed by: Crow Frances M.D. 12/05/2016 5:44 PM Dictated Date/Time: 12/05/2016 5:39 PM
--- NOTE | 2016-12-05 18:29 | DIAGNOSTIC IMAGING REPORT ---
MRI OF THE BRAIN WITHOUT CONTRAST CLINICAL HISTORY: Acute stroke. TPA administration. COMPARISON STUDY: CT scan dated the 2016 FINDINGS: Sagittal T1, axial diffusion, proton density and T2 weighted axial, coronal FLAIR, and axial T1-weighted images were acquired. No intra or extra-axial mass lesions are visualized There is a moderate focus of restricted water diffusion in the right middle cerebral artery territory measuring 4.5 cm in diameter. This involves the insular cortex, portions the right posterior frontal lobe, and portions of the right anterior parietal lobe. There is no evidence of ventricular dilatation. Proton density T2-weighted and FLAIR images reveal there is subtle increased T2 signal in the region of the acute right MCA distribution infarct. There are small foci of increased T2 signal within the left frontal and parietal white matter likely on a small vessel basis, There are no abnormal flow voids. IMPRESSION: Moderate sized acute right middle cerebral artery territory infarct. Electronically signed by: Crow Frances M.D. 12/05/2016 6:28 PM Dictated Date/Time: 12/05/2016 6:25 PM
--- NOTE | 2016-12-05 18:31 | DIAGNOSTIC IMAGING REPORT ---
MR ANGIOGRAPHY OF THE [place] NO CONTRAST CLINICAL HISTORY: Acute stroke. Patient status post TPA. COMPARISON STUDY: None. A 3-D [id number] MR angiographic sequence of the [place] was performed. Both the source and projection images were reviewed. The study is mildly limited from technical standpoint secondary to motion artifact. There is no evidence of major intracranial branch occlusion. There is no evidence of intracranial stenosis. There are no lesions suspicious for aneurysm. IMPRESSION: Unremarkable MR angiography of the [place]. Electronically signed by: Crow Frances M.D. 12/05/2016 6:30 PM Dictated Date/Time: 12/05/2016 6:28 PM
[2016-12-05] MEDS ORDERED: NURSING DECISION MEDICATION ORDER SCH (20:15)
[2016-12-05] MEDS: FENTANYL PATCH REMOVE & WASTE SCH (20:29)
[2016-12-05] MEDS: FENTANYL 12 MCG/HR TDSY TD SCH (20:37)
[2016-12-05] MEDS ORDERED: LORAZEPAM 2 MG/ML 1 ML VIAL IV PRN (21:30)
[2016-12-05] MEDS ORDERED: PHENYLEPHRINE HCL INJ 20 MG in DEXTROSE 5% 500ML 500 ML IV PRN (21:37)
[2016-12-05] MEDS ORDERED: NORMOSOL R 1,000 ML IV ONE (22:00)
[2016-12-05] MEDS: NORMOSOL R 1,000 ML IV SCH (23:06)
--- NOTE | 2016-12-05 23:16 | CARDIOLOGY CONSULTATION ---
DATE OF CONSULTATION: 12/05/2016 The patient seen and examined at 10:00 p.m. and intermittently throughout the day, have been following with the progress as events noted through critical care and neurology. The patient this evening denies complaints but has persistent left-sided neglect and weakness. The patient for treatment of suspected acute CVA underwent TPA protocol. Subsequent imaging post-procedures demonstrated patent vasculature, unremarkable MRA and CT angiography without evidence of hemorrhagic conversion. MRI, however, has demonstrated significant right middle cerebral artery distribution stroke consistent with the patient's symptoms and complaints. He will be continued on protocol for stroke. He is on intermittent IV infusions with nicardipine for blood pressure control. We will follow the patient in the hospital. Course and results have been discussed by myself and critical care physicians with family. MARJORIE
[2016-12-06] VITALS (77 sets, daily range): BP systolic 110–219; BP diastolic 60–121; PULSE 55–106; TEMP 36.9–37.2; O2SAT 89–100; Ht 175.3 cm; Wt 114.7 kg
[2016-12-06] MEDS ORDERED: LORAZEPAM 2 MG/ML 1 ML VIAL IV PRN (01:30)
[2016-12-06] MEDS ORDERED: LORAZEPAM INJ 0.5 MG in SYRINGE 0.75 ML IV PRN (03:15)
[2016-12-06] MEDS: NORMOSOL R 1,000 ML IV SCH ×2 (06:13→12:57)
[2016-12-06] MEDS: INSULIN ASPART 100 UNITS/ML 3 ML PEN SC SCH ×4 (06:14→20:54)
[2016-12-06] MEDS: CHECK FENTANYL PATCH PLACEMENT SCH ×2 (08:00→16:05)
--- NOTE | 2016-12-06 08:50 | DIAGNOSTIC IMAGING REPORT ---
CT SCAN OF THE BRAIN WITHOUT IV CONTRAST CLINICAL HISTORY: Stroke status post TPA. COMPARISON STUDY: CT and MRI of the brain dated 12/05/2016. TECHNIQUE: Unenhanced axial CT scan of the brain is performed from the vertex to the skull base. Automated dose control exposure was utilized. CT DOSE: 537.48 mGy.cm FINDINGS: Brain parenchyma: There is loss of flower-white matter differentiation again seen in the right MCA territory consistent with an evolving infarct. There is mild effacement of the adjacent cortical sulci. No hemorrhage is identified and there is no midline shift. No extra-axial fluid collection is seen. Ventricles, sulci, cisterns: Normal in configuration. Intracranial vasculature: The visualized intracranial vasculature at the skull base is normal in appearance. Calvarium: Unremarkable. Sinuses and mastoids: The visualized paranasal sinuses are clear. The mastoid air cells are well pneumatized. Orbits: The bony orbits are grossly intact. IMPRESSION: 1. Evolving right MCA territory infarct. The involved territory is similar to yesterday's MRI examination. 2. There is no hemorrhage or midline shift. No new foci of ischemia are suspected. Electronically signed by: Toribio Dennis M.D. 12/06/2016 8:49 AM Dictated Date/Time: 12/06/2016 8:44 AM
[2016-12-06] MEDS: PHENYLEPHRINE HCL INJ 40 MG in DEXTROSE 5% 500ML 500 ML IV PRN (09:21)
[2016-12-06] MEDS: FLUTICASONE PROPIONATE NA SPR 16 GM BTL NAE SCH (09:24)
[2016-12-06] MEDS: BUDESONIDE/FORMOTEROL FUMARATE 160/4.5 60 PUFFS/INHALER INH SCH ×2 (09:24→20:56)
[2016-12-06] MEDS ORDERED: FENTANYL PATCH REMOVE & WASTE SCH (09:59)
--- NOTE | 2016-12-06 10:48 | Pharmacy Progress Note ---
Glycemic Control: Progress Nt Date of Service Dec 06, 2016. Scope Glycemic Pharmacist consulted by Dr Garcia on 12/03/16 for glycemic control and to write orders per [facility] inpatient glycemic control protocol. Objective Accuchecks BSG (last 24hrs): Test 12/05/16 12:19 12/05/16 16:36 12/05/16 20:41 12/06/16 04:44 Bedside Glucose 139 mg/dl (70-99) 168 mg/dl (70-99) 162 mg/dl (70-99) Laboratory Data (last 24hrs) Test 12/05/16 10:50 12/06/16 04:44 Hemoglobin A1c 8.3 % Potassium Level 4.4 mmol/L HbA1c: Test 12/05/16 10:50 Hemoglobin A1c 8.3 %(4.5-5.6) H Recent Pertinent Medications Outpatient Anti-diabetic Regimen: * metformin 500mg PO BID with meals * glipizide XR 10mg PO Daily * A1c = 7.4% --> 8.3% over the last 2 months The patient is currently receiving: * Basal insulin: * none at this time * Correctional Insulin: * NovoLog Correction per scale ACHS or q6H if NPO * Goal Range: Low 100 mg/dL - High 140 mg/dL * Correction Factor: 25 mg/dL/unit * Carb ratio of 1 unit per 9 grams CHO consumed * Oral Agents: * none at this time Risk Factors for Insulin Resistance: * Pressors: phenylephrine gtt * IVF: Normosol R @ 150mL/hr * Recent Surgery: recyclable products sorter on 12/05/16 * Diet: NPO Assessment & Plan ASSESSMENT: * ADA & AACE recommend a goal blood sugar range 140-180 mg/dl for the majority of critically ill & non-critically ill patients. However, more stringent targets may be selected in individual cases. Decrease goal range to 100-140 mg/ dL. 12/03/16 * 41 yo T2D M admitted with chest pain/SOB, BSG 191 mg/dL * A1c from 10/2016 is 7.4% which indicates good glycemic control as an outpatient * I plan to initiate weight-based NovoLog with lunch and hold outpatient orals 12/05/16 * Stroke alert today- TPA administered and patient transferred to ICU * He has received 0 units of insulin today which I assume will continue as patient remains NPO * Follow-up tomorrow if/when diet advanced 12/06/16 * Only 3 units of insulin needed over the past 24 hours with BSGs all at or below ICU goal range (current goal range 100-140mg/dL may be too aggressive for ICU status) * Currently requiring a mixture of pressors and antihypertensive agents to maintain goal BP post stroke * now with phenylephrine - may increase insulin resistance * BSG this AM 140mg/dL * continue to forgo basal insulin and only use NovoLog as needed * A1c re-ordered and shows decrease in glycemic control over the past 2 months * may need to increase metformin dose and/or follow up with outpatient provider at discharge PLAN FOR INPATIENT GLYCEMIC CONTROL: * Hold outpatient oral diabetes medications * No basal insulin at this time * Correctional Insulin with NOVOLOG per scale ACHS or Q6hrs while NPO * Goal Range: Low 140 mg/dL - High 180 mg/dL per ADA recommendations * Correction Factor: 25 mg/dL/unit * Nutritional / Prandial insulin per carb ratio of 1 unit per 9 grams CHO consumed * A1c current- added to D/C instructions * Please note that the plan above was derived based on current level of insulin resistance and hospital stress. These recommendations are appropriate for inpatient admission only. Plan of care upon discharge will need to be reassessed to avoid potential outpatient hypo/hyperglycemia. Thank you.
--- NOTE | 2016-12-06 11:50 | Critical Care Progress Note ---
Critical Care Progress Note Date of Service Dec 06, 2016. Attending Dr. Quintero Subjective 41 y/o M with PMH of Hypertension, Diabetes, Asthma, GERD, Anxiety disorder, JOSE, bipolar disorder was admitted on 12/03 with chest pain which started a night prior to arrival . He had cardiac catheterization done this morning at about 9.13 AM and while he was being repositioned after the procedure he developed left sided weakness and slurred speech. She received TPA after protamine due to an elevated PTT . He had brain imaging including CT, CTA, MRI, MRA which revealed a right MCA ischemic stroke. continues to be flaccid on his left side with loss of sensation. BP has been very fluctuant and he need Cardene to control it and neosyn to keep it up. headache is better today. Objective GENERAL: drowsy but responds to name by opening eyes HEENT: No acute trauma, normocephalic atraumatic, mucous membranes moist, no nasal congestion, no scleral icterus. NECK: No stridor, no adenopathy, no meningismus, trachea is midline. LUNGS: Clear to auscultation bilaterally, no wheeze, no rhonchi, breath sounds equal. HEART: Without murmurs gallops or rubs, regular rate and rhythm. ABDOMEN: Soft, nontender, bowel sounds positive EXTREMITIES: No cyanosis or edema NEUROLOGIC: Appears drowsy but responds to name but not commands. no aphasia PEERL right sided gaze left sided facial droop with loss of sensation Motor strength: left side flaccid , 0/5 Sensory: left sided loss of sensation. Reflexes: Upgoing plantars [~ rep ct add3]] CT SCAN OF THE BRAIN WITHOUT IV CONTRAST CLINICAL HISTORY: Stroke status post TPA. COMPARISON STUDY: CT and MRI of the brain dated 12/05/2016. TECHNIQUE: Unenhanced axial CT scan of the brain is performed from the vertex to the skull base. Automated dose control exposure was utilized. CT DOSE: 537.48 mGy.cm FINDINGS: Brain parenchyma: There is loss of flower-white matter differentiation again seen in the right MCA territory consistent with an evolving infarct. There is mild effacement of the adjacent cortical sulci. No hemorrhage is identified and there is no midline shift. No extra-axial fluid collection is seen. Ventricles, sulci, cisterns: Normal in configuration. Intracranial vasculature: The visualized intracranial vasculature at the skull base is normal in appearance. Calvarium: Unremarkable. Sinuses and mastoids: The visualized paranasal sinuses are clear. The mastoid air cells are well pneumatized. Orbits: The bony orbits are grossly intact. IMPRESSION: 1. Evolving right MCA territory infarct. The involved territory is similar to yesterday's MRI examination. 2. There is no hemorrhage or midline shift. No new foci of ischemia are suspected. Assessment & Plan 41 year old with a PMH Hypertension, Diabetes, Asthma, GERD, Anxiety disorder, JOSE, bipolar disorder s/p TPA after he developed left sided weakness Neuro: Acute Right MCA ischemic stroke: s/p TPA - Post TPA protocol - neuro checks and VS q15 min - BP control with nicardipine , goal range <180/105, to nmaintain between 140- 160 - Aspirin , Plavix - Atorvastatin - TTE done 12/05: mild concentric left ventricular hypertrophy. Left ventricular systolic function is normal. Ejection Fraction = 55-60%. Left ventricular wall motion is normal. CT without contrast 12/06: . Evolving right MCA territory infarct. The involved territory is similar to yesterday's MRI examination. 2. There is no hemorrhage or midline shift. No new foci of ischemia are suspected. - hypercoagulable workup ordered - MRI brain, MRA head and neck for tomorrow - Neurology consult - appreciate input - Speech eval - Speech therapy - PT/OT - Physiatry consult- appreciate input - Plavix and aspirin after TPA protocol CVS: - HTN: - BP control with nicardipine drip goal range <180/105 but will maintain >140/100 for perfusion - Home meds- Lopressor 50 mg BID, Norvasc 5 mg, lisinopril 20 mg held currently Chest pain: s/p cardiac catheterization: - Right dominant coronary anatomy Mild to moderate diffuse atherosclerotic luminal irregularities Normal LV function Troponin X 3 negative Hypertriglyceridemia/Hypercholesterolemia Triglycerides > 600 Cholesterol > 200 - Atorvastatin 10 mg Endocrine: hba1c 11/01 at 7.4 DM: hold home meds ISS Resp: stable at RA Asthma - Continue home meds GI/FEN: GERD: - Protonix - speech eval done today: appreciate recs Psych: Bipolar disorder: - currently held home meds Urine toxicology ordered DVT prophylaxis: - [facility] Resident Physician Supervision Note: Dr. Jeanie Villagran was resident physician during care of patient. I separately evaluated patient and did history and exam. I discussed the case with the resident and generally agree with the findings and plan. Documented By: Alverto Quintero DO Data Medications: Current Inpatient Medications Medications (Trade) Dose Ordered Sig/Ney Route Start Time Stop Time Status Last Admin Dose Admin Ioversol (Optiray 320) 100 ml UD PRN IV 12/03/16 05:30 12/07/16 05:29 Amlodipine Besylate (Norvasc Tab) 5 mg DAILY PO 12/03/16 09:00 01/02/17 08:59 Future Hold 12/05/16 12:33 5 MG Aspirin (Ecotrin Tab) 81 mg DAILY PO 12/03/16 09:00 01/02/17 08:59 Future Hold 12/05/16 08:06 81 MG Budesonide/ Formoterol Fumarate (Symbicort 160/ 4.5 Inh) 2 puffs BID INH 12/03/16 09:00 01/02/17 08:59 12/06/16 09:24 2 PUFFS Diazepam (Valium Tab) 5 mg QID PO 12/03/16 09:00 01/02/17 08:59 Future Hold 12/05/16 12:36 5 MG Dicyclomine HCl (Bentyl Tab) 20 mg QID PO 12/03/16 09:00 01/02/17 08:59 Future Hold 12/05/16 13:31 20 MG Fluticasone Propionate (Flonase Nasal [place]) 2 sprays DAILY CAROLEE 12/03/16 09:00 01/02/17 08:59 12/06/16 09:24 2 SPRAYS Gabapentin (Neurontin Cap) 400 mg TID PO 12/03/16 09:00 01/02/17 08:59 Future Hold 12/05/16 13:30 400 MG Hydrochlorothiazide (Hydrochlorothiazide Tab) 25 mg DAILY PO 12/03/16 09:00 01/02/17 08:59 Future Hold 12/04/16 09:26 25 MG Lisinopril (Zestril Tab) 20 mg QPM PO 12/03/16 21:00 01/02/17 20:59 Future Hold 12/04/16 21:00 20 MG Metoprolol Tartrate (Lopressor Tab) 100 mg BID PO 12/03/16 09:00 01/02/17 08:59 Future Hold 12/05/16 13:30 100 MG Oxycodone HCl (Roxicodone Immediate Rel Tab) 15 mg QID PO 12/03/16 09:00 12/17/16 08:59 Future Hold 12/05/16 12:36 15 MG Trazodone HCl (Desyrel Tab) 300 mg HS PO 12/03/16 21:00 01/02/17 20:59 Future Hold 12/04/16 21:00 300 MG Docusate Sodium (coLACE CAP) 100 mg TID PRN PO 12/03/16 10:00 01/02/17 09:59 Future Hold Enoxaparin Sodium (Lovenox Inj) 40 mg Q24H SC 12/03/16 12:00 01/02/17 11:59 Future Hold 12/04/16 12:46 40 MG Al Hydrox/Mg Hydrox/Simethicone (Maalox Max Susp) 15 ml Q4H PRN PO 12/03/16 08:15 01/02/17 08:14 Future Hold Magnesium Hydroxide (Milk Of Magnesia Susp) 30 ml Q12H PRN PO 12/03/16 08:15 01/02/17 08:14 Future Hold Ondansetron HCl (Zofran Inj) 4 mg Q6H PRN IV 12/03/16 08:15 01/02/17 08:14 Polyethylene (Miralax Powder Packet) 17 gm DAILY PRN PO 12/03/16 08:15 01/02/17 08:14 Future Hold Miscellaneous Information (Consult Glycemic Management Pharmacy) 1 ea UD PRN N/A 12/03/16 09:21 01/02/17 09:20 Insulin Aspart (novoLOG ASPART) SLIDING SCALE ACHS SC 12/03/16 11:00 01/02/17 10:59 12/05/16 20:43 1 UNITS Glucose (Glucose 40% Gel) 15-30 GRAMS 15 GRAMS... UD PRN PO 12/03/16 09:45 01/02/17 09:44 Glucose (Glucose Chew Tab) 4-8 Tablets 4 Tabl... UD PRN PO 12/03/16 09:45 01/02/17 09:44 Dextrose (Dextrose 50% 50ML Syringe) 25-50ML OF 50% DW IV FOR... UD PRN IV 12/03/16 09:45 01/02/17 09:44 Glucagon (Glucagon Inj) 1 mg UD PRN SQ 12/03/16 09:45 01/02/17 09:44 Miscellaneous Information (Check Fentanyl Patch Placement) 1 ea QS N/A 12/03/16 16:00 01/02/17 15:59 12/06/16 08:00 1 EA Miscellaneous (Iv Fluids Completed) 1 ea PRN PRN N/A 12/03/16 12:00 12/03/17 11:59 Pantoprazole Sodium (Protonix Tab) 40 mg DAILY PO 12/04/16 09:00 01/03/17 08:59 Future Hold 12/05/16 12:32 40 MG Atorvastatin Calcium (Lipitor Tab) 10 mg QAM PO 12/05/16 09:00 01/04/17 08:59 Future Hold 12/05/16 12:32 10 MG Nitroglycerin (Nitrostat Tab) 0.4 mg Q5M PRN SL 12/05/16 09:15 01/04/17 09:14 Acetaminophen 650 mg 650 mg Q4H PRN PO 12/05/16 09:15 01/04/17 09:14 Future Hold Sodium Chloride 250 ml @ 999 mls/hr Q16M PRN IV 12/05/16 09:06 01/04/17 09:05 Nicardipine HCl/ Sodium Chloride (Cardene Iv/Nss 250ml) 250 ml @ 0 mls/hr Q0M PRN IV 12/05/16 11:15 01/04/17 11:14 12/05/16 13:00 50 MLS/HR Miscellaneous Information (Pharmacist Discharge Med Rec Consult) 1 ea UD PRN N/A 12/05/16 12:45 01/04/17 12:44 Ioversol (Optiray 320) 100 ml UD PRN IV 12/05/16 15:45 12/09/16 15:44 Labetalol HCl (Normodyne IV) 10 mg ONE PRN IV 12/05/16 17:00 12/06/16 17:00 Hydralazine HCl (HydrALAZINE INJ) 5 mg Q1H PRN IV. 12/05/16 20:00 01/04/17 19:59 Labetalol HCl (Normodyne IV) 5 mg Q1H PRN IV 12/05/16 20:00 01/04/17 19:59 Miscellaneous (Fentanyl Patch Remove & Waste) 1 ea Q3D@2028 N/A 12/05/16 20:29 01/04/17 20:28 Fentanyl 12 mcg 12 mcg Q3D@2029 TD 12/05/16 20:30 12/19/16 20:29 12/05/16 20:37 12 MCG Parenteral Electrolyte Solution (Normosol R) 1,000 ml @ 150 mls/hr Q6H40M IV 12/05/16 23:00 01/04/17 22:59 12/06/16 06:13 150 MLS/HR Lorazepam 0.5 mg 0.5 mg Q4H PRN IV 12/06/16 01:30 01/05/17 01:29 Lorazepam 0.5 mg/ Syringe 1 ml @ 1 mls/min Q4H PRN IV 12/06/16 03:15 01/05/17 03:14 Phenylephrine HCl/ Dextrose ([place]-Synephrine Inj/D5W 500ml) 504 ml @ 0 mls/hr Q0M PRN IV 12/06/16 03:45 01/05/17 03:44 12/06/16 09:21 87 MLS/HR I & O: 24-Hour Column 12/06/16 08:00 Intake Total 6952 ml Output Total 6400 ml Balance 552 ml Vital Signs: Date Time Temp Pulse Resp B/P Pulse Ox O2 Delivery O2 Flow Rate FiO2 12/06/16 11:00 97 Nasal Cannula 2.0 12/06/16 09:58 76 14 130/75 97 12/06/16 09:45 74 14 97 12/06/16 09:30 62 12 98 Nasal Cannula 2.0 12/06/16 09:28 64 15 147/85 97 12/06/16 09:18 65 16 165/90 98 12/06/16 09:15 60 12 98 12/06/16 09:00 56 14 99 12/06/16 08:58 61 12 176/98 99 12/06/16 08:50 72 14 160/101 97 12/06/16 08:29 183/105 12/06/16 08:15 Nasal Cannula 2.0 12/06/16 08:15 57 10 100 Nasal Cannula 2.0 12/06/16 08:00 66 15 99 12/06/16 07:59 67 15 169/93 98 12/06/16 07:45 62 10 99 12/06/16 07:30 61 12 99 12/06/16 07:29 66 11 177/87 98 12/06/16 07:15 58 11 99 12/06/16 07:00 55 11 100 12/06/16 06:00 59 13 159/89 100 Nasal Cannula 2.0 12/06/16 05:29 69 11 156/108 98 12/06/16 05:00 69 13 163/95 100 Nasal Cannula 2.0 12/06/16 04:00 65 12 125/85 98 Nasal Cannula 2.0 12/06/16 04:00 Nasal Cannula 2.0 12/06/16 03:00 70 12 132/95 93 Nasal Cannula 2.0 12/06/16 02:00 62 12 143/74 96 Nasal Cannula 2.0 12/06/16 01:00 71 12 117/70 96 Nasal Cannula 2.0 12/06/16 00:00 Nasal Cannula 2.0 12/06/16 00:00 36.9 80 14 137/74 94 Nasal Cannula 2.0 12/05/16 23:00 78 12 153/90 96 Nasal Cannula 2.0 12/05/16 22:00 72 13 147/92 90 Nasal Cannula 2.0 12/05/16 21:00 36.7 79 13 114/78 90 Nasal Cannula 2.0 12/05/16 20:00 Nasal Cannula 2.0 12/05/16 20:00 36.7 86 13 154/95 94 Nasal Cannula 2.0 12/05/16 19:00 89 12 187/124 94 Nasal Cannula 2.0 12/05/16 18:30 84 24 148/102 91 Nasal Cannula 2.0 12/05/16 18:26 79 17 172/94 91 Nasal Cannula 2.0 12/05/16 17:00 80 14 146/90 91 Nasal Cannula 2.0 12/05/16 16:30 79 16 123/74 92 Nasal Cannula 2.0 12/05/16 16:00 36.6 90 22 131/81 91 Nasal Cannula 2.0 12/05/16 16:00 Room Air 2.0 Mask 12/05/16 15:30 102 20 122/85 93 Nasal Cannula 2.0 12/05/16 15:00 93 12 144/81 94 Nasal Cannula 2.0 12/05/16 14:41 98 14 132/82 93 Nasal Cannula 2.0 12/05/16 14:30 104 22 166/92 90 Room Air 12/05/16 14:00 100 18 160/104 94 Room Air 12/05/16 13:45 101 21 201/125 93 Room Air 12/05/16 13:30 83 20 188/121 94 Room Air 12/05/16 13:00 78 14 183/107 95 Room Air 12/05/16 12:45 83 16 184/125 95 Room Air 12/05/16 12:30 36.7 88 20 192/127 95 Room Air 12/05/16 12:15 78 16 168/102 95 Room Air 12/05/16 12:00 87 16 159/99 94 Room Air 12/05/16 11:45 72 14 167/99 94 Room Air Laboratory Results: Last 24 Hours Test 12/05/16 12:19 12/05/16 16:36 12/05/16 20:41 12/06/16 04:44 Bedside Glucose 139 mg/dl 168 mg/dl 162 mg/dl
[2016-12-06 13:26] LABS: HEMATOCRIT 39.5 % (42-52); MEAN CELL VOLUME 89.8 fL (80-100); MEAN CORPUSCULAR HEMOGLOBIN 31.4 pg (25-34); MEAN CORPUSCULAR HGB CONC 34.9 g/dl (32-36); MEAN PLATELET VOLUME 9.6 fL (7.4-10.4); PLATELET COUNT 230 K/uL (130-400); WHITE BLOOD COUNT 8.15 K/uL (4.8-10.8)
--- NOTE | 2016-12-06 13:40 | Progress Note ---
Subjective Date of Service: Dec 06, 2016. Subjective Pt evaluation today including: physical exam, lab review, review of studies, conversation w/ recruitment consultant, review of inpatient medication list Saw/examined the patient in room 111 Nonverbal today Gaze preference to the right Not moving left arm Problem List Medical Problems: (1) Left sided chest pain Status: Acute Review of Systems Unable to obtain due to patient's mental status Medications Current Inpatient Medications Medications (Trade) Dose Ordered Sig/Ney Route Start Time Stop Time Status Last Admin Dose Admin Ioversol (Optiray 320) 100 ml UD PRN IV 12/03/16 05:30 12/07/16 05:29 Amlodipine Besylate (Norvasc Tab) 5 mg DAILY PO 12/03/16 09:00 01/02/17 08:59 Future Hold 12/05/16 12:33 5 MG Aspirin (Ecotrin Tab) 81 mg DAILY PO 12/03/16 09:00 01/02/17 08:59 Future Hold 12/05/16 08:06 81 MG Budesonide/ Formoterol Fumarate (Symbicort 160/ 4.5 Inh) 2 puffs BID INH 12/03/16 09:00 01/02/17 08:59 12/06/16 09:24 2 PUFFS Diazepam (Valium Tab) 5 mg QID PO 12/03/16 09:00 01/02/17 08:59 Future Hold 12/05/16 12:36 5 MG Dicyclomine HCl (Bentyl Tab) 20 mg QID PO 12/03/16 09:00 01/02/17 08:59 Future Hold 12/05/16 13:31 20 MG Fluticasone Propionate (Flonase Nasal [place]) 2 sprays DAILY CAROLEE 12/03/16 09:00 01/02/17 08:59 12/06/16 09:24 2 SPRAYS Gabapentin (Neurontin Cap) 400 mg TID PO 12/03/16 09:00 01/02/17 08:59 Future Hold 12/05/16 13:30 400 MG Hydrochlorothiazide (Hydrochlorothiazide Tab) 25 mg DAILY PO 12/03/16 09:00 01/02/17 08:59 Future Hold 12/04/16 09:26 25 MG Lisinopril (Zestril Tab) 20 mg QPM PO 12/03/16 21:00 01/02/17 20:59 Future Hold 12/04/16 21:00 20 MG Metoprolol Tartrate (Lopressor Tab) 100 mg BID PO 12/03/16 09:00 01/02/17 08:59 Future Hold 12/05/16 13:30 100 MG Oxycodone HCl (Roxicodone Immediate Rel Tab) 15 mg QID PO 12/03/16 09:00 12/17/16 08:59 Future Hold 12/05/16 12:36 15 MG Trazodone HCl (Desyrel Tab) 300 mg HS PO 12/03/16 21:00 01/02/17 20:59 Future Hold 12/04/16 21:00 300 MG Docusate Sodium (coLACE CAP) 100 mg TID PRN PO 12/03/16 10:00 01/02/17 09:59 Future Hold Enoxaparin Sodium (Lovenox Inj) 40 mg Q24H SC 12/03/16 12:00 01/02/17 11:59 Future Hold 12/04/16 12:46 40 MG Al Hydrox/Mg Hydrox/Simethicone (Maalox Max Susp) 15 ml Q4H PRN PO 12/03/16 08:15 01/02/17 08:14 Future Hold Magnesium Hydroxide (Milk Of Magnesia Susp) 30 ml Q12H PRN PO 12/03/16 08:15 01/02/17 08:14 Future Hold Ondansetron HCl (Zofran Inj) 4 mg Q6H PRN IV 12/03/16 08:15 01/02/17 08:14 Polyethylene (Miralax Powder Packet) 17 gm DAILY PRN PO 12/03/16 08:15 01/02/17 08:14 Future Hold Miscellaneous Information (Consult Glycemic Management Pharmacy) 1 ea UD PRN N/A 12/03/16 09:21 01/02/17 09:20 Insulin Aspart (novoLOG ASPART) SLIDING SCALE ACHS SC 12/03/16 11:00 01/02/17 10:59 12/05/16 20:43 1 UNITS Glucose (Glucose 40% Gel) 15-30 GRAMS 15 GRAMS... UD PRN PO 12/03/16 09:45 01/02/17 09:44 Glucose (Glucose Chew Tab) 4-8 Tablets 4 Tabl... UD PRN PO 12/03/16 09:45 01/02/17 09:44 Dextrose (Dextrose 50% 50ML Syringe) 25-50ML OF 50% DW IV FOR... UD PRN IV 12/03/16 09:45 01/02/17 09:44 Glucagon (Glucagon Inj) 1 mg UD PRN SQ 12/03/16 09:45 01/02/17 09:44 Miscellaneous Information (Check Fentanyl Patch Placement) 1 ea QS N/A 12/03/16 16:00 01/02/17 15:59 12/06/16 08:00 1 EA Miscellaneous (Iv Fluids Completed) 1 ea PRN PRN N/A 12/03/16 12:00 12/03/17 11:59 Pantoprazole Sodium (Protonix Tab) 40 mg DAILY PO 12/04/16 09:00 01/03/17 08:59 Future Hold 12/05/16 12:32 40 MG Atorvastatin Calcium (Lipitor Tab) 10 mg QAM PO 12/05/16 09:00 01/04/17 08:59 Future Hold 12/05/16 12:32 10 MG Nitroglycerin (Nitrostat Tab) 0.4 mg Q5M PRN SL 12/05/16 09:15 01/04/17 09:14 Acetaminophen 650 mg 650 mg Q4H PRN PO 12/05/16 09:15 01/04/17 09:14 Future Hold Sodium Chloride 250 ml @ 999 mls/hr Q16M PRN IV 12/05/16 09:06 01/04/17 09:05 Nicardipine HCl/ Sodium Chloride (Cardene Iv/Nss 250ml) 250 ml @ 0 mls/hr Q0M PRN IV 12/05/16 11:15 01/04/17 11:14 12/05/16 13:00 50 MLS/HR Miscellaneous Information (Pharmacist Discharge Med Rec Consult) 1 ea UD PRN N/A 12/05/16 12:45 01/04/17 12:44 Ioversol (Optiray 320) 100 ml UD PRN IV 12/05/16 15:45 12/09/16 15:44 Labetalol HCl (Normodyne IV) 10 mg ONE PRN IV 12/05/16 17:00 12/06/16 17:00 Hydralazine HCl (HydrALAZINE INJ) 5 mg Q1H PRN IV. 12/05/16 20:00 01/04/17 19:59 Labetalol HCl (Normodyne IV) 5 mg Q1H PRN IV 12/05/16 20:00 01/04/17 19:59 Miscellaneous (Fentanyl Patch Remove & Waste) 1 ea Q3D@2028 N/A 12/05/16 20:29 01/04/17 20:28 Fentanyl 12 mcg 12 mcg Q3D@2029 TD 12/05/16 20:30 12/19/16 20:29 12/05/16 20:37 12 MCG Parenteral Electrolyte Solution (Normosol R) 1,000 ml @ 150 mls/hr Q6H40M IV 12/05/16 23:00 01/04/17 22:59 12/06/16 12:57 150 MLS/HR Lorazepam 0.5 mg 0.5 mg Q4H PRN IV 12/06/16 01:30 01/05/17 01:29 Lorazepam 0.5 mg/ Syringe 1 ml @ 1 mls/min Q4H PRN IV 12/06/16 03:15 01/05/17 03:14 Phenylephrine HCl/ Dextrose ([place]-Synephrine Inj/D5W 500ml) 504 ml @ 0 mls/hr Q0M PRN IV 12/06/16 03:45 01/05/17 03:44 12/06/16 09:21 87 MLS/HR Objective Vital Signs Date Time Temp Pulse Resp B/P Pulse Ox O2 Delivery O2 Flow Rate FiO2 12/06/16 11:00 97 Nasal Cannula 2.0 12/06/16 09:58 76 14 130/75 97 12/06/16 09:45 74 14 97 12/06/16 09:30 62 12 98 Nasal Cannula 2.0 12/06/16 09:28 64 15 147/85 97 12/06/16 09:18 65 16 165/90 98 12/06/16 09:15 60 12 98 12/06/16 09:00 56 14 99 12/06/16 08:58 61 12 176/98 99 12/06/16 08:50 72 14 160/101 97 12/06/16 08:29 183/105 12/06/16 08:15 Nasal Cannula 2.0 12/06/16 08:15 57 10 100 Nasal Cannula 2.0 12/06/16 08:00 66 15 99 12/06/16 07:59 67 15 169/93 98 12/06/16 07:45 62 10 99 12/06/16 07:30 61 12 99 12/06/16 07:29 66 11 177/87 98 12/06/16 07:15 58 11 99 12/06/16 07:00 55 11 100 12/06/16 06:00 59 13 159/89 100 Nasal Cannula 2.0 12/06/16 05:29 69 11 156/108 98 12/06/16 05:00 69 13 163/95 100 Nasal Cannula 2.0 12/06/16 04:00 65 12 125/85 98 Nasal Cannula 2.0 12/06/16 04:00 Nasal Cannula 2.0 12/06/16 03:00 70 12 132/95 93 Nasal Cannula 2.0 12/06/16 02:00 62 12 143/74 96 Nasal Cannula 2.0 12/06/16 01:00 71 12 117/70 96 Nasal Cannula 2.0 12/06/16 00:00 Nasal Cannula 2.0 12/06/16 00:00 36.9 80 14 137/74 94 Nasal Cannula 2.0 12/05/16 23:00 78 12 153/90 96 Nasal Cannula 2.0 12/05/16 22:00 72 13 147/92 90 Nasal Cannula 2.0 12/05/16 21:00 36.7 79 13 114/78 90 Nasal Cannula 2.0 12/05/16 20:00 Nasal Cannula 2.0 12/05/16 20:00 36.7 86 13 154/95 94 Nasal Cannula 2.0 12/05/16 19:00 89 12 187/124 94 Nasal Cannula 2.0 12/05/16 18:30 84 24 148/102 91 Nasal Cannula 2.0 12/05/16 18:26 79 17 172/94 91 Nasal Cannula 2.0 12/05/16 17:00 80 14 146/90 91 Nasal Cannula 2.0 12/05/16 16:30 79 16 123/74 92 Nasal Cannula 2.0 12/05/16 16:00 36.6 90 22 131/81 91 Nasal Cannula 2.0 12/05/16 16:00 Room Air 2.0 Mask 12/05/16 15:30 102 20 122/85 93 Nasal Cannula 2.0 12/05/16 15:00 93 12 144/81 94 Nasal Cannula 2.0 12/05/16 14:41 98 14 132/82 93 Nasal Cannula 2.0 12/05/16 14:30 104 22 166/92 90 Room Air 12/05/16 14:00 100 18 160/104 94 Room Air 12/05/16 13:45 101 21 201/125 93 Room Air Physical Exam General Appearance: + pertinent finding (nonverbal, no response to verbal or tactile stimuli) Respiratory/Chest: lungs clear, normal breath sounds, no respiratory distress, no accessory muscle use Cardiovascular: regular rate, rhythm, no edema, no murmur Neurologic/Psychiatric: + motor weakness (left arm), + pertinent finding ( right preferential gaze; left arm neglect; nonverbal) Laboratory Results Last 24 Hours Test 12/05/16 16:36 12/05/16 20:41 12/06/16 11:14 Bedside Glucose 168 mg/dl 162 mg/dl White Blood Count 8.15 K/uL Red Blood Count 4.40 M/uL Hemoglobin 13.8 g/dL Hematocrit 39.5 % Mean Corpuscular Volume 89.8 fL Mean Corpuscular Hemoglobin 31.4 pg Mean Corpuscular Hemoglobin Concent 34.9 g/dl RDW Standard Deviation 41.5 fL RDW Coefficient of Variation 12.9 % Platelet Count 230 K/uL Mean Platelet Volume 9.6 fL Assessment and Plan This is a 41 year old male with PMH of HTN, DM2, hypertriglyceridemia, asthma, tobacco use disorder presents with left sided chest pain Evolving right MCA territory infarct 2/2 patient worsening clinically from yesterday nonverbal today preferential right gaze, left arm neglect day #2 of tPA start aspirin+plavix after protocol speech/PT/OT continue nicardipine drip, trying to maintain blood pressure < 180/100 as per neurology; should not decrease blood pressure too much to avoid ischemia 2/ Left sided sensory and motor weakness slurred speech s/p tPA neurochecks as per protocol neurological consultation Head CT negative x 2 PT/OT/speech Chest Pain r/o ACS 12/05 s/p cardiac cath mild disease; nonobstructive chest pain not likely cardiac in nature appreciate cardiology input 12/04 Patient presents with left sided chest pain Pain around 5/10 this morning, but improved with SL nitro cardiac enzymes negative x [address] changes, will repeat EKG continue aspirin, b-kirk has had cardiac cath over 5 years prior with some "build-up" as per patient due to risk factors, will consult cardiology for further input Hypertriglyceridemia/Hypercholesterolemia Triglycerides > 600 Cholesterol > 200 will start statin DM2 hold oral agents insulin sliding scale pharmacy glycemic control consult HTN 12/05 nicardipine drip uptitrate to keep blood pressure from > 180/100 as per tpa protocol; can add b-kirk if needed 12/04 blood pressures are stable today elevated on presentation continue amlodipine, EDWARD-I, b-kirk Asthma stable, no exacerbation continue home inhalers GERD cont. PPI Bipolar Disorder continue home medications DVT ppx Lovenox FULL CODE
[2016-12-06 13:44] LABS: INR 0.9 (0.9-1.1)
[2016-12-06 13:53] LABS: BUN/CREATININE RATIO 13.1 (10-20); CALCIUM 8.8 mg/dl (8.5-10.1); CREATININE 0.78 mg/dl (0.60-1.40); MAGNESIUM 2.3 mg/dl (1.8-2.4); POTASSIUM 3.9 mmol/L (3.5-5.1)
[2016-12-06 14:07] LABS: CHOLESTEROL/HDL RATIO 6.7
--- NOTE | 2016-12-06 14:13 | Neurology Progress Notes ---
Neurology Progress Note Date of Service Dec 06, 2016. Jennifer Mayes is a 41 year old with a H Hypertension, Diabetes, Asthma, GERD, Anxiety disorder, JOSE, bipolar disorder. He was brought to the hospital this am due to chest pain which started last night around 11p. 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 He was taken to the ED and tele stroke was called and he was given tPa. He states he has a strong family history of stroke with his father and his grandmother had multiple strokes. He is a smoker and also chews tobacco. Today his cousin and are in the room. He is still having a right gaze preference and states he can see to the left but when turned to left his eyes go to midline and then back to rightward. denies current SOB, abdominal pain, CP , N, V, vision changes. + slurred speech, left UE weakness, numbness, LE weakness. Objective Date Time Temp Pulse Resp B/P Pulse Ox O2 Delivery O2 Flow Rate FiO2 12/06/16 11:00 97 Nasal Cannula 2.0 12/06/16 09:58 76 14 130/75 97 12/06/16 09:45 74 14 97 12/06/16 09:30 62 12 98 Nasal Cannula 2.0 12/06/16 09:28 64 15 147/85 97 12/06/16 09:18 65 16 165/90 98 12/06/16 09:15 60 12 98 12/06/16 09:00 56 14 99 12/06/16 08:58 61 12 176/98 99 12/06/16 08:50 72 14 160/101 97 12/06/16 08:29 183/105 12/06/16 08:15 Nasal Cannula 2.0 12/06/16 08:15 57 10 100 Nasal Cannula 2.0 12/06/16 08:00 66 15 99 12/06/16 07:59 67 15 169/93 98 12/06/16 07:45 62 10 99 12/06/16 07:30 61 12 99 12/06/16 07:29 66 11 177/87 98 12/06/16 07:15 58 11 99 12/06/16 07:00 55 11 100 12/06/16 06:00 59 13 159/89 100 Nasal Cannula 2.0 12/06/16 05:29 69 11 156/108 98 12/06/16 05:00 69 13 163/95 100 Nasal Cannula 2.0 12/06/16 04:00 65 12 125/85 98 Nasal Cannula 2.0 12/06/16 04:00 Nasal Cannula 2.0 12/06/16 03:00 70 12 132/95 93 Nasal Cannula 2.0 12/06/16 02:00 62 12 143/74 96 Nasal Cannula 2.0 12/06/16 01:00 71 12 117/70 96 Nasal Cannula 2.0 12/06/16 00:00 Nasal Cannula 2.0 12/06/16 00:00 36.9 80 14 137/74 94 Nasal Cannula 2.0 12/05/16 23:00 78 12 153/90 96 Nasal Cannula 2.0 12/05/16 22:00 72 13 147/92 90 Nasal Cannula 2.0 12/05/16 21:00 36.7 79 13 114/78 90 Nasal Cannula 2.0 12/05/16 20:00 Nasal Cannula 2.0 12/05/16 20:00 36.7 86 13 154/95 94 Nasal Cannula 2.0 12/05/16 19:00 89 12 187/124 94 Nasal Cannula 2.0 12/05/16 18:30 84 24 148/102 91 Nasal Cannula 2.0 12/05/16 18:26 79 17 172/94 91 Nasal Cannula 2.0 12/05/16 17:00 80 14 146/90 91 Nasal Cannula 2.0 12/05/16 16:30 79 16 123/74 92 Nasal Cannula 2.0 12/05/16 16:00 36.6 90 22 131/81 91 Nasal Cannula 2.0 12/05/16 16:00 Room Air 2.0 Mask 12/05/16 15:30 102 20 122/85 93 Nasal Cannula 2.0 12/05/16 15:00 93 12 144/81 94 Nasal Cannula 2.0 12/05/16 14:41 98 14 132/82 93 Nasal Cannula 2.0 12/05/16 14:30 104 22 166/92 90 Room Air 12/05/16 14:00 100 18 160/104 94 Room Air Last 24 Hours Test 12/05/16 16:36 12/05/16 20:41 2/2/17 11:14 Bedside Glucose 168 mg/dl 162 mg/dl White Blood Count 8.15 K/uL Red Blood Count 4.40 M/uL Hemoglobin 13.8 g/dL Hematocrit 39.5 % Mean Corpuscular Volume 89.8 fL Mean Corpuscular Hemoglobin 31.4 pg Mean Corpuscular Hemoglobin Concent 34.9 g/dl RDW Standard Deviation 41.5 fL RDW Coefficient of Variation 12.9 % Platelet Count 230 K/uL Mean Platelet Volume 9.6 fL Prothrombin Time 10.0 SECONDS Prothromb Time International Ratio 0.9 Activated Partial Thromboplast Time 26.2 SECONDS Partial Thromboplastin Ratio 1.0 Sodium Level 140 mmol/L Potassium Level 3.9 mmol/L Chloride Level 102 mmol/L Carbon Dioxide Level 28 mmol/L Anion Gap 10.0 mmol/L Blood Urea Nitrogen 10 mg/dl Creatinine 0.78 mg/dl Est Creatinine Clear Calc Drug Dose 154.9 ml/min Estimated GFR () 129.0 Estimated GFR (Non- 111.3 BUN/Creatinine Ratio 13.1 Random Glucose 143 mg/dl Calcium Level 8.8 mg/dl Magnesium Level 2.3 mg/dl Cholesterol Level 229 mg/dl Imaging: MRI brain with and without - Moderate sized acute right middle cerebral artery territory infarct. CTA brain- no aneurysm or defect noted CTA neck- The right carotid revealed no evidence of aneurysm and no evidence of dissection. There is no evidence of hemodynamic significant stenosis. The left carotid revealed no evidence of hemodynamic significant stenosis. There is no evidence of aneurysm. There is no evidence of dissection. There is a dominant left vertebral artery. There is no evidence of vertebral artery stenosis or dissection. Exam: Physical Exam: Constitutional: B appearance ill appearing Ears, Nose, Mouth and Throat: mucous membranes moist, no injection and skin normal, eyes normal tongue white, halitosis, no gag Cardiovascular: normal S-1 and S-2 and regular rate and rhythm Respiratory: clear to auscultation (CTA) and no rales, rhonchi or wheeze Musculoskeletal: no peripheral edema Skin: no stigmata of neurocutaneous disease noted and normal and intact Eyes: extraocular muscles intact (EOMI) and pupils equal, round and reactive to light (PERRL), corneal intact bilaterally, right sided preference gaze, right sided neglect NEUROLOGIC EXAMINATION: Mental status: Alert and interactive Oriented to person Speech fluent with no evidence of aphasia Cranial Nerves smile asymmetric, eye brow raise symmetric, no gag Reflexes: Deep tendon reflexes were symmetrical and graded 2/5. Plantar responses were flexor. Sensory: no cool or vibration sensation of left UE/LE Coordination: unable to lift or sustain left arm against gravity Gait/Stance: lying in bed gazing right Motor: unable to evaluate Strength: left arm /leg flaccid, does not move with deep stimulation, slight movement with stimulation of calf, right arm biceps triceps hand manager law 5/5, LE hip flex against gravity plantar flex ext intact Current Inpatient Medications Medications (Trade) Dose Ordered Sig/Ney Route Start Time Stop Time Status Last Admin Dose Admin Ioversol (Optiray 320) 100 ml UD PRN IV 12/03/16 05:30 12/07/16 05:29 Amlodipine Besylate (Norvasc Tab) 5 mg DAILY PO 12/03/16 09:00 01/02/17 08:59 Future Hold 12/05/16 12:33 5 MG Aspirin (Ecotrin Tab) 81 mg DAILY PO 12/03/16 09:00 01/02/17 08:59 Future Hold 12/05/16 08:06 81 MG Budesonide/ Formoterol Fumarate (Symbicort 160/ 4.5 Inh) 2 puffs BID INH 12/03/16 09:00 01/02/17 08:59 12/06/16 09:24 2 PUFFS Diazepam (Valium Tab) 5 mg QID PO 12/03/16 09:00 01/02/17 08:59 Future Hold 12/05/16 12:36 5 MG Dicyclomine HCl (Bentyl Tab) 20 mg QID PO 12/03/16 09:00 01/02/17 08:59 Future Hold 12/05/16 13:31 20 MG Fluticasone Propionate (Flonase Nasal Anna) 2 sprays DAILY CAROLEE 12/03/16 09:00 01/02/17 08:59 12/06/16 09:24 2 SPRAYS Gabapentin (Neurontin Cap) 400 mg TID PO 12/03/16 09:00 01/02/17 08:59 Future Hold 12/05/16 13:30 400 MG Hydrochlorothiazide (Hydrochlorothiazide Tab) 25 mg DAILY PO 12/03/16 09:00 01/02/17 08:59 Future Hold 12/04/16 09:26 25 MG Lisinopril (Zestril Tab) 20 mg QPM PO 12/03/16 21:00 01/02/17 20:59 Future Hold 12/04/16 21:00 20 MG Metoprolol Tartrate (Lopressor Tab) 100 mg BID PO 12/03/16 09:00 01/02/17 08:59 Future Hold 12/05/16 13:30 100 MG Oxycodone HCl (Roxicodone Immediate Rel Tab) 15 mg QID PO 12/03/16 09:00 12/17/16 08:59 Future Hold 12/05/16 12:36 15 MG Trazodone HCl (Desyrel Tab) 300 mg HS PO 12/03/16 21:00 01/02/17 20:59 Future Hold 12/04/16 21:00 300 MG Docusate Sodium (coLACE CAP) 100 mg TID PRN PO 12/03/16 10:00 01/02/17 09:59 Future Hold Enoxaparin Sodium (Lovenox Inj) 40 mg Q24H SC 12/03/16 12:00 01/02/17 11:59 Future Hold 12/04/16 12:46 40 MG Al Hydrox/Mg Hydrox/Simethicone (Maalox Max Susp) 15 ml Q4H PRN PO 12/03/16 08:15 01/02/17 08:14 Future Hold Magnesium Hydroxide (Milk Of Magnesia Susp) 30 ml Q12H PRN PO 12/03/16 08:15 01/02/17 08:14 Future Hold Ondansetron HCl (Zofran Inj) 4 mg Q6H PRN IV 12/03/16 08:15 01/02/17 08:14 Polyethylene (Miralax Powder Packet) 17 gm DAILY PRN PO 12/03/16 08:15 01/02/17 08:14 Future Hold Miscellaneous Information (Consult Glycemic Management Pharmacy) 1 ea UD PRN N/A 12/03/16 09:21 01/02/17 09:20 Insulin Aspart (novoLOG ASPART) SLIDING SCALE ACHS SC 12/03/16 11:00 01/02/17 10:59 12/05/16 20:43 1 UNITS Glucose (Glucose 40% Gel) 15-30 GRAMS 15 GRAMS... UD PRN PO 12/03/16 09:45 01/02/17 09:44 Glucose (Glucose Chew Tab) 4-8 Tablets 4 Tabl... UD PRN PO 12/03/16 09:45 01/02/17 09:44 Dextrose (Dextrose 50% 50ML Syringe) 25-50ML OF 50% DW IV FOR... UD PRN IV 12/03/16 09:45 01/02/17 09:44 Glucagon (Glucagon Inj) 1 mg UD PRN SQ 12/03/16 09:45 01/02/17 09:44 Miscellaneous Information (Check Fentanyl Patch Placement) 1 ea QS N/A 12/03/16 16:00 01/02/17 15:59 12/06/16 08:00 1 EA Miscellaneous (Iv Fluids Completed) 1 ea PRN PRN N/A 12/03/16 12:00 12/03/17 11:59 Pantoprazole Sodium (Protonix Tab) 40 mg DAILY PO 12/04/16 09:00 01/03/17 08:59 Future Hold 12/05/16 12:32 40 MG Atorvastatin Calcium (Lipitor Tab) 10 mg QAM PO 12/05/16 09:00 01/04/17 08:59 Future Hold 12/05/16 12:32 10 MG Nitroglycerin (Nitrostat Tab) 0.4 mg Q5M PRN SL 12/05/16 09:15 01/04/17 09:14 Acetaminophen 650 mg 650 mg Q4H PRN PO 12/05/16 09:15 01/04/17 09:14 Future Hold Sodium Chloride 250 ml @ 999 mls/hr Q16M PRN IV 12/05/16 09:06 01/04/17 09:05 Nicardipine HCl/ Sodium Chloride (Cardene Iv/Nss 250ml) 250 ml @ 0 mls/hr Q0M PRN IV 12/05/16 11:15 01/04/17 11:14 12/05/16 13:00 50 MLS/HR Miscellaneous Information (Pharmacist Discharge Med Rec Consult) 1 ea UD PRN N/A 12/05/16 12:45 01/04/17 12:44 Ioversol (Optiray 320) 100 ml UD PRN IV 12/05/16 15:45 12/09/16 15:44 Labetalol HCl (Normodyne IV) 10 mg ONE PRN IV 12/05/16 17:00 12/06/16 17:00 Hydralazine HCl (HydrALAZINE INJ) 5 mg Q1H PRN IV. 12/05/16 20:00 01/04/17 19:59 Labetalol HCl (Normodyne IV) 5 mg Q1H PRN IV 12/05/16 20:00 01/04/17 19:59 Miscellaneous (Fentanyl Patch Remove & Waste) 1 ea Q3D@2028 N/A 12/05/16 20:29 01/04/17 20:28 Fentanyl 12 mcg 12 mcg Q3D@2029 TD 12/05/16 20:30 12/19/16 20:29 12/05/16 20:37 12 MCG Parenteral Electrolyte Solution (Normosol R) 1,000 ml @ 150 mls/hr Q6H40M IV 12/05/16 23:00 01/04/17 22:59 12/06/16 12:57 150 MLS/HR Lorazepam 0.5 mg 0.5 mg Q4H PRN IV 12/06/16 01:30 01/05/17 01:29 Lorazepam 0.5 mg/ Syringe 1 ml @ 1 mls/min Q4H PRN IV 12/06/16 03:15 01/05/17 03:14 Phenylephrine HCl/ Dextrose (Hernando-Synephrine Inj/D5W 500ml) 504 ml @ 0 mls/hr Q0M PRN IV 12/06/16 03:45 01/05/17 03:44 12/06/16 09:21 87 MLS/HR Impression 41 year old male s/p cardiac cath with stroke symptoms and tPa administered Plan 1. MRI with and without contrast right MCA stroke 2. start plavix 75 mg once protocol is met for tPa administration and restart aspirin 3. permissive hypertension currently on pressors to elevate blood pressure 4. hypercoag work up 5. PT/OT for discharge needs 6. stress stop smoking 7. cholestrol control needed LDL < 70 8. HTN control once past critical profusion protocol unable to maintain blood pressure without pressors 9. DM control optimize 10. when stable may need formal angiogram to evaluate vessels. I have seen and discussed above patient with Dr Phylicia Arredondo, neurology Pt seen and examined, images, events from last evening reviewed. CT head, nonhemorrhagic R MCA infarct Pt more alert today. Ongoing unchanged headache. Less of a right gaze preference, L central facial weakness. Vis extinction to the left.LUE and LLE no withdrawal. Imp RMCA infarct post cardiac cath, more alert. FU CT head in AM, consider repeat echo with bubble study if not recently done. FRANCESCO Arredondo MD
--- NOTE | 2016-12-06 14:13 | PROGRESS NOTE ---
DATE: 12/06/2016 SUBJECTIVE: The patient seen and examined. Chart, medications, telemetry reviewed. Appreciate ongoing care through critical care and neurology services. No cardiac complaints. The patient still with dense left-sided weakness and neglect. CT scan and MRIs were reviewed. Blood pressures are labile on medical therapies. No acute cardiac decline or arrhythmias. The patient's oral medications currently held, though as noted in the past he has required substantial antihypertensive therapies. Precritical care medications included significant opioids as well. I made no adjustments in therapies. Would watch for signs or symptoms of narcotic withdrawal.
--- NOTE | 2016-12-06 14:17 | Critical Care Progress Note ---
Critical Care Progress Note Date of Service Dec 06, 2016. ICU Day ICU Day Number: [address] Leon Rodriguez This is a 41-year-old male who presented for cardiac catheterization yesterday at 09 100 and during repositioning developed left-sided weakness and slurred speech. Stroke alert have been called patient was taken to CT which was negative for bleeding her she tells stroke was consult and he was given TPA at 10:15 AM. He also received 5000 units of IV heparin. Initial NIH SS was 10 and later 5. His blood pressure was elevated at that time, however he eventually became hypotensive and has since required is a pressors. It is my understanding that this patient was able to communicate last evening and his left side was flaccid. Upon my entering this morning he will arouse to verbal stimuli but will not respond to me. However when nursing walked in; he will interact with them making hand gestures to answer questions. I've had reports from other staff that he makes minimal attempted communication with them as well. It is my understanding that last evening there was an attempt to fly this patient to [facility], however they refused him, he will remain here as long as his stroke does not convert to hemorrhagic. Due to patient's condition and refusal to communicate with me, ROS cannot be obtained. Objective Vital Signs - as noted Laboratory Data - as noted Physical Exam: General - NAD, will arouse to name, not make eye contact, or respond to repeated questions Eyes - PERRL, No icterus, gaze conjugate ENT - Mucosa moist, no lesions or candidiasis, no dentition Neck - Supple, trachea midline, no masses or lymphadenopathy, no JVD or bruits Lungs - No paradoxical chest wall movement, clear to auscultation bilaterally, no wheezes, rales, or rhonchi Heart - Reg rate and rhythm, No murmur, rubs, clicks, or gallops appreciated Abdomen - BS present, no bruits noted, tympanic to percussion, soft, nontender, nondistended, no organomegaly Extremities - No edema, pedal pulses intact Neuro - A&OX0 Strength: cannot be assessed Reflexes: Bicep, brachioradialis, patellar, and plantar intact CN:PERRL, no facial asymmetry Assessment & Plan (1) Ischemic stroke Right MCA stroke during heart catheterization on 12/05/2016; TPA given via [facility] Left-side flaccid, difficulty verbally Originally hypertensive now hypotensive requiring vasopressors Speech consult in place Repeat Head CT now Hold PT/OT today; resumed tomorrow if possible Neurology consulted and following Continue titration of phenylephrine to a SBP greater than 140 (2) Hypotension Previously hypertensive converted to hypotension Plan as listed above and stroke (3) Dyslipidemia (4) Chest pain Presented to the emergency department with chest pain on 12/03/2016: Echo: EF 55-60%, mild concentric left ventricular hypertrophy, no abnormal wall motion abnormality, left ventricular systolic function normal Cardiac cath on 12/05/2016: Right dominant coronary anatomy; Mild to moderate diffuse atherosclerotic luminal irregularities; Normal LV function Patient does not appear to be in pain; cannot verify during current condition Cardiac leads on telemetry stable and monitored Troponin 3 negative Hold all home cardiac antihypertensive meds Continue to monitor on telemetry Cardiology consultation in place. Appreciate Dr. Berger's input (5) Bipolar disorder Continue Home medications Consider psych consult as patient's status improves (6) Diabetes mellitus type I Glucose 143-162 Hemoglobin A1c 8.[address] Follow-up Accu-Checks per protocol (7) GERD (gastroesophageal reflux disease) History of GERD Speech has seen and will start diet Consider restarting Protonix when possible Resp: History of asthma Clear to auscultation Adequate saturation on room air Continue to Monitor ID: Afebrile; WBC 8.15 Currently no infectious source identified Krishnan in place, multiple peripheral lines Lactic acid pending; repeat every 6hrs Monitor fever curve : +2.2 L this admission, even I's&O's today BUNs/creatinine stable * Strict I's and O's * Follow daily labs Access: * Left Wrist, Left Upper Arm * Consider Central Access tomorrow if pressors aren't d/c'd * * I have personally evaluated and examined this patient. I agree with assessment and plan of Jj Kaur PA-C. Not truly hypotensive, but pressing up in effort to maintain cerebral perfusion. Patient with Hx of hypertension and questionable medical compliance , was initially hypertensive requiring nicardipine, but now lower than ideal goal. However, minimal effect if any, and will discontinue vasoactives I have personally spent 40 minutes of critical care time in the direct management of this patient. This is a life/limb threatening event. This includes time spent evaluating patient, direct bedside care, chart review, placing orders, interpretation of diagnostic studies, discussion with consultants, patient, and family members, as well as other required patient management activities. This time is exclusive of all separately billable procedures, and teaching time and separate from and in addition to any other critical care service time. Consults & Procedures Consultants: Cardiology: Dr. Berger Neurology: Dr. Justice Psychiatry: Dr. Byers Procedures: TPA: 12/05/16 @ 10:15 Data Medications: Current Inpatient Medications Medications (Trade) Dose Ordered Sig/Ney Route Start Time Stop Time Status Last Admin Dose Admin Ioversol (Optiray 320) 100 ml UD PRN IV 12/03/16 05:30 12/07/16 05:29 Amlodipine Besylate (Norvasc Tab) 5 mg DAILY PO 12/03/16 09:00 01/02/17 08:59 Future Hold 12/05/16 12:33 5 MG Aspirin (Ecotrin Tab) 81 mg DAILY PO 12/03/16 09:00 01/02/17 08:59 Future Hold 12/05/16 08:06 81 MG Budesonide/ Formoterol Fumarate (Symbicort 160/ 4.5 Inh) 2 puffs BID INH 12/03/16 09:00 01/02/17 08:59 12/06/16 09:24 2 PUFFS Diazepam (Valium Tab) 5 mg QID PO 12/03/16 09:00 01/02/17 08:59 Future Hold 12/05/16 12:36 5 MG Dicyclomine HCl (Bentyl Tab) 20 mg QID PO 12/03/16 09:00 01/02/17 08:59 Future Hold 12/05/16 13:31 20 MG Fluticasone Propionate (Flonase Nasal [place]) 2 sprays DAILY CAROLEE 12/03/16 09:00 01/02/17 08:59 12/06/16 09:24 2 SPRAYS Gabapentin (Neurontin Cap) 400 mg TID PO 12/03/16 09:00 01/02/17 08:59 Future Hold 12/05/16 13:30 400 MG Hydrochlorothiazide (Hydrochlorothiazide Tab) 25 mg DAILY PO 12/03/16 09:00 01/02/17 08:59 Future Hold 12/04/16 09:26 25 MG Lisinopril (Zestril Tab) 20 mg QPM PO 12/03/16 21:00 01/02/17 20:59 Future Hold 12/04/16 21:00 20 MG Metoprolol Tartrate (Lopressor Tab) 100 mg BID PO 12/03/16 09:00 01/02/17 08:59 Future Hold 12/05/16 13:30 100 MG Oxycodone HCl (Roxicodone Immediate Rel Tab) 15 mg QID PO 12/03/16 09:00 12/17/16 08:59 Future Hold 12/05/16 12:36 15 MG Trazodone HCl (Desyrel Tab) 300 mg HS PO 12/03/16 21:00 01/02/17 20:59 Future Hold 12/04/16 21:00 300 MG Docusate Sodium (coLACE CAP) 100 mg TID PRN PO 12/03/16 10:00 01/02/17 09:59 Future Hold Enoxaparin Sodium (Lovenox Inj) 40 mg Q24H SC 12/03/16 12:00 01/02/17 11:59 Future Hold 12/04/16 12:46 40 MG Al Hydrox/Mg Hydrox/Simethicone (Maalox Max Susp) 15 ml Q4H PRN PO 12/03/16 08:15 01/02/17 08:14 Future Hold Magnesium Hydroxide (Milk Of Magnesia Susp) 30 ml Q12H PRN PO 12/03/16 08:15 01/02/17 08:14 Future Hold Ondansetron HCl (Zofran Inj) 4 mg Q6H PRN IV 12/03/16 08:15 01/02/17 08:14 Polyethylene (Miralax Powder Packet) 17 gm DAILY PRN PO 12/03/16 08:15 01/02/17 08:14 Future Hold Miscellaneous Information (Consult Glycemic Management Pharmacy) 1 ea UD PRN N/A 12/03/16 09:21 01/02/17 09:20 Insulin Aspart (novoLOG ASPART) SLIDING SCALE ACHS SC 12/03/16 11:00 01/02/17 10:59 12/05/16 20:43 1 UNITS Glucose (Glucose 40% Gel) 15-30 GRAMS 15 GRAMS... UD PRN PO 12/03/16 09:45 01/02/17 09:44 Glucose (Glucose Chew Tab) 4-8 Tablets 4 Tabl... UD PRN PO 12/03/16 09:45 01/02/17 09:44 Dextrose (Dextrose 50% 50ML Syringe) 25-50ML OF 50% DW IV FOR... UD PRN IV 12/03/16 09:45 01/02/17 09:44 Glucagon (Glucagon Inj) 1 mg UD PRN SQ 12/03/16 09:45 01/02/17 09:44 Miscellaneous Information (Check Fentanyl Patch Placement) 1 ea QS N/A 12/03/16 16:00 01/02/17 15:59 12/06/16 08:00 1 EA Miscellaneous (Iv Fluids Completed) 1 ea PRN PRN N/A 12/03/16 12:00 12/03/17 11:59 Pantoprazole Sodium (Protonix Tab) 40 mg DAILY PO 12/04/16 09:00 01/03/17 08:59 Future Hold 12/05/16 12:32 40 MG Atorvastatin Calcium (Lipitor Tab) 10 mg QAM PO 12/05/16 09:00 01/04/17 08:59 Future Hold 12/05/16 12:32 10 MG Nitroglycerin (Nitrostat Tab) 0.4 mg Q5M PRN SL 12/05/16 09:15 01/04/17 09:14 Acetaminophen 650 mg 650 mg Q4H PRN PO 12/05/16 09:15 01/04/17 09:14 Future Hold Sodium Chloride 250 ml @ 999 mls/hr Q16M PRN IV 12/05/16 09:06 01/04/17 09:05 Nicardipine HCl/ Sodium Chloride (Cardene Iv/Nss 250ml) 250 ml @ 0 mls/hr Q0M PRN IV 12/05/16 11:15 01/04/17 11:14 12/05/16 13:00 50 MLS/HR Miscellaneous Information (Pharmacist Discharge Med Rec Consult) 1 ea UD PRN N/A 12/05/16 12:45 01/04/17 12:44 Ioversol (Optiray 320) 100 ml UD PRN IV 12/05/16 15:45 12/09/16 15:44 Labetalol HCl (Normodyne IV) 10 mg ONE PRN IV 12/05/16 17:00 2/2/17 17:00 Hydralazine HCl (HydrALAZINE INJ) 5 mg Q1H PRN IV. 12/05/16 20:00 01/04/17 19:59 Labetalol HCl (Normodyne IV) 5 mg Q1H PRN IV 12/05/16 20:00 01/04/17 19:59 Miscellaneous (Fentanyl Patch Remove & Waste) 1 ea Q3D@2028 N/A 12/05/16 20:29 01/04/17 20:28 Fentanyl 12 mcg 12 mcg Q3D@2029 TD 12/05/16 20:30 12/19/16 20:29 12/05/16 20:37 12 MCG Parenteral Electrolyte Solution (Normosol R) 1,000 ml @ 150 mls/hr Q6H40M IV 12/05/16 23:00 01/04/17 22:59 12/06/16 12:57 150 MLS/HR Lorazepam 0.5 mg 0.5 mg Q4H PRN IV 12/06/16 01:30 01/05/17 01:29 Lorazepam 0.5 mg/ Syringe 1 ml @ 1 mls/min Q4H PRN IV 12/06/16 03:15 01/05/17 03:14 Phenylephrine HCl/ Dextrose ([place]-Synephrine Inj/D5W 500ml) 504 ml @ 0 mls/hr Q0M PRN IV 12/06/16 03:45 01/05/17 03:44 12/06/16 09:21 87 MLS/HR I & O: 24-Hour Column 12/06/16 07:59 Intake Total 6952 ml Output Total 6400 ml Balance 552 ml Vital Signs: Date Time Temp Pulse Resp B/P Pulse Ox O2 Delivery O2 Flow Rate FiO2 12/06/16 11:00 97 Nasal Cannula 2.0 12/06/16 09:58 76 14 130/75 97 12/06/16 09:45 74 14 97 12/06/16 09:30 62 12 98 Nasal Cannula 2.0 12/06/16 09:28 64 15 147/85 97 12/06/16 09:18 65 16 165/90 98 12/06/16 09:15 60 12 98 12/06/16 09:00 56 14 99 12/06/16 08:58 61 12 176/98 99 12/06/16 08:50 72 14 160/101 97 12/06/16 08:29 183/105 12/06/16 08:15 Nasal Cannula 2.0 12/06/16 08:15 57 10 100 Nasal Cannula 2.0 12/06/16 08:00 66 15 99 12/06/16 07:59 67 15 169/93 98 12/06/16 07:45 62 10 99 12/06/16 07:30 61 12 99 12/06/16 07:29 66 11 177/87 98 12/06/16 07:15 58 11 99 12/06/16 07:00 55 11 100 12/06/16 06:00 59 13 159/89 100 Nasal Cannula 2.0 12/06/16 05:29 69 11 156/108 98 12/06/16 05:00 69 13 163/95 100 Nasal Cannula 2.0 12/06/16 04:00 65 12 125/85 98 Nasal Cannula 2.0 12/06/16 04:00 Nasal Cannula 2.0 12/06/16 03:00 70 12 132/95 93 Nasal Cannula 2.0 12/06/16 02:00 62 12 143/74 96 Nasal Cannula 2.0 12/06/16 01:00 71 12 117/70 96 Nasal Cannula 2.0 12/06/16 00:00 Nasal Cannula 2.0 12/06/16 00:00 36.9 80 14 137/74 94 Nasal Cannula 2.0 12/05/16 23:00 78 12 153/90 96 Nasal Cannula 2.0 12/05/16 22:00 72 13 147/92 90 Nasal Cannula 2.0 12/05/16 21:00 36.7 79 13 114/78 90 Nasal Cannula 2.0 12/05/16 20:00 Nasal Cannula 2.0 12/05/16 20:00 36.7 86 13 154/95 94 Nasal Cannula 2.0 12/05/16 19:00 89 12 187/124 94 Nasal Cannula 2.0 12/05/16 18:30 84 24 148/102 91 Nasal Cannula 2.0 12/05/16 18:26 79 17 172/94 91 Nasal Cannula 2.0 12/05/16 17:00 80 14 146/90 91 Nasal Cannula 2.0 12/05/16 16:30 79 16 123/74 92 Nasal Cannula 2.0 12/05/16 16:00 36.6 90 22 131/81 91 Nasal Cannula 2.0 12/05/16 16:00 Room Air 2.0 Mask 12/05/16 15:30 102 20 122/85 93 Nasal Cannula 2.0 12/05/16 15:00 93 12 144/81 94 Nasal Cannula 2.0 12/05/16 14:41 98 14 132/82 93 Nasal Cannula 2.0 12/05/16 14:30 104 22 166/92 90 Room Air Laboratory Results: Last 24 Hours Test 12/05/16 16:36 12/05/16 20:41 12/06/16 11:14 12/06/16 14:00 Bedside Glucose 168 mg/dl 162 mg/dl White Blood Count 8.15 K/uL Red Blood Count 4.40 M/uL Hemoglobin 13.8 g/dL Hematocrit 39.5 % Mean Corpuscular Volume 89.8 fL Mean Corpuscular Hemoglobin 31.4 pg Mean Corpuscular Hemoglobin Concent 34.9 g/dl RDW Standard Deviation 41.5 fL RDW Coefficient of Variation 12.9 % Platelet Count 230 K/uL Mean Platelet Volume 9.6 fL Prothrombin Time 10.0 SECONDS Prothromb Time International Ratio 0.9 Activated Partial Thromboplast Time 26.2 SECONDS Partial Thromboplastin Ratio 1.0 Sodium Level 140 mmol/L Potassium Level 3.9 mmol/L Chloride Level 102 mmol/L Carbon Dioxide Level 28 mmol/L Anion Gap 10.0 mmol/L Blood Urea Nitrogen 10 mg/dl Creatinine 0.78 mg/dl Est Creatinine Clear Calc Drug Dose 154.9 ml/min Estimated GFR () 129.0 Estimated GFR (Non- 111.3 BUN/Creatinine Ratio 13.1 Random Glucose 143 mg/dl Calcium Level 8.8 mg/dl Magnesium Level 2.3 mg/dl Cholesterol Level 229 mg/dl
[2016-12-06] MEDS: ENOXAPARIN 40 MG/0.4 ML SYR SC SCH (16:30)
[2016-12-06] MEDS: DICYCLOMINE HCL 20 MG TAB PO SCH ×2 (16:30→20:56)
[2016-12-06 16:41] LABS: BENZODIAZEPINE, URINE POS (NEG); COCAINE,URINE NEG (NEG); PHENCYCLIDINE, URINE NEG (NEG)
[2016-12-06 20:07] LABS: BENZODIAZEPINE, URINE NEG (NEG); COCAINE,URINE NEG (NEG); PHENCYCLIDINE, URINE NEG (NEG)
[2016-12-06] MEDS: GABAPENTIN 400 MG CAP PO SCH (20:56)
[2016-12-06] MEDS: TRAZODONE HCL 100 MG TAB PO SCH (20:56)
[2016-12-06] MEDS: OXYCODONE HCL IR 5 MG TAB (IMMEDIATE RELEASE) PO PRN (20:57)
[2016-12-07] VITALS (34 sets, daily range): BP systolic 124–179; BP diastolic 67–112; PULSE 57–103; TEMP 36.6–36.9; O2SAT 92–96
[2016-12-07] MEDS: NORMOSOL R 1,000 ML IV SCH ×2 (00:06→08:51)
[2016-12-07] MEDS: CHECK FENTANYL PATCH PLACEMENT SCH ×4 (00:06→23:26)
[2016-12-07] MEDS: PHENYLEPHRINE HCL INJ 40 MG in DEXTROSE 5% 500ML 500 ML IV PRN (02:20)
[2016-12-07 06:16] LABS: BASO % 0.5 %; BASO ABS # 0.03 K/uL (0-0.2); COMPLETE YES; HEMATOCRIT 36.8 % (42-52); IG% 0.3 %; LYMPH % 26.1 %; LYMPH ABS # 1.73 K/uL (1.2-3.4); MEAN CELL VOLUME 88.7 fL (80-100); MEAN CORPUSCULAR HEMOGLOBIN 30.6 pg (25-34); MEAN CORPUSCULAR HGB CONC 34.5 g/dl (32-36); MEAN PLATELET VOLUME 9.4 fL (7.4-10.4); MONO % 7.4 %; NEUT % 62.7 %; PLATELET COUNT 192 K/uL (130-400); RED BLOOD COUNT 4.15 M/uL (4.7-6.1); WHITE BLOOD COUNT 6.63 K/uL (4.8-10.8)
[2016-12-07 06:50] LABS: BUN/CREATININE RATIO 11.2 (10-20); CALCIUM 8.5 mg/dl (8.5-10.1); CREATININE 0.86 mg/dl (0.60-1.40); POTASSIUM 3.7 mmol/L (3.5-5.1)
[2016-12-07] MEDS: INSULIN ASPART 100 UNITS/ML 3 ML PEN SC SCH ×4 (07:48→21:00)
[2016-12-07] MEDS: GABAPENTIN 400 MG CAP PO SCH ×3 (07:50→21:07)
[2016-12-07] MEDS: DICYCLOMINE HCL 20 MG TAB PO SCH ×4 (07:50→21:06)
[2016-12-07] MEDS: FLUTICASONE PROPIONATE NA SPR 16 GM BTL NAE SCH (07:50)
[2016-12-07] MEDS: BUDESONIDE/FORMOTEROL FUMARATE 160/4.5 60 PUFFS/INHALER INH SCH ×2 (07:50→21:06)
[2016-12-07] MEDS: PANTOprazole SOD 40 MG TAB PO SCH (07:51)
[2016-12-07] MEDS: ASPIRIN 81 MG ECTAB PO SCH (07:51)
[2016-12-07] MEDS: ATORVASTATIN 10 MG TAB PO SCH (07:51)
[2016-12-07] MEDS: FENOFIBRATE 48 MG TAB PO SCH (07:52)
[2016-12-07] MEDS: OXYCODONE HCL IR 5 MG TAB (IMMEDIATE RELEASE) PO PRN (07:57)
--- NOTE | 2016-12-07 09:18 | DIAGNOSTIC IMAGING REPORT ---
CT HEAD WITHOUT CONTRAST (CT) CLINICAL HISTORY: Right MCA stroke status post TPA. COMPARISON STUDY: December 06, 2016 TECHNIQUE: Axial CT of the brain is performed from the vertex to the skull base. IV contrast was not administered for this examination. CT DOSE: 729.78 mGycm FINDINGS: There is a right middle cerebral artery territory infarct, similar in size and appearance to the preceding study. There is no evidence of acute hemorrhage. There is no evidence of midline shift. No calvarial abnormalities are visualized. There is no evidence of pathologic ventricular dilatation. There is no evidence of acute sinusitis IMPRESSION: Persistent right middle cerebral artery territory infarct, similar to the preceding study. No evidence of acute hemorrhage. Electronically signed by: Crow Frances M.D. 12/07/2016 9:16 AM Dictated Date/Time: 12/07/2016 9:13 AM
[2016-12-07] MEDS ORDERED: LABETALOL HCL IV 5 MG/ML 20ML IV SCH (11:00)
[2016-12-07] MEDS ORDERED: NURSING VERBAL MED ORDER ONE (11:00)
--- NOTE | 2016-12-07 12:02 | Neurology Progress Notes ---
Neurology Progress Note Date of Service Dec 07, 2016. Jennifer Mayes is a 41 year old with a H Hypertension, Diabetes, Asthma, GERD, Anxiety disorder, JOSE, bipolar disorder. He was brought to the hospital this am due to chest pain which started last night around 11p. He was taken to the cath lab technologist this am and while still on the table he developed left sided weakness and slurred speech. He was taken to the ED and tele stroke was called and he was given tPa. He states he has a strong family history of stroke with his father and his grandmother had multiple strokes. He is a smoker and also chews tobacco. He states he has had a headache since yesterday. denies current SOB, abdominal pain, CP, N, V, vision changes. + slurred speech, left UE weakness, numbness, LE weakness + headache Objective Date Time Temp Pulse Resp B/P Pulse Ox O2 Delivery O2 Flow Rate FiO2 12/07/16 11:40 36.7 67 14 167/90 93 12/07/16 11:40 93 Room Air 12/07/16 10:45 71 16 133/97 93 12/07/16 10:45 72 10 93 12/07/16 10:44 74 12 133/97 93 12/07/16 10:30 80 11 92 12/07/16 10:28 74 10 150/109 92 12/07/16 10:15 77 11 92 12/07/16 10:00 80 22 94 12/07/16 09:58 73 12 157/92 93 12/07/16 09:56 86 13 153/87 94 12/07/16 09:45 73 17 93 12/07/16 09:30 83 12 96 12/07/16 09:28 82 14 95 12/07/16 09:15 62 11 93 12/07/16 08:45 78 29 95 12/07/16 08:30 74 13 94 12/07/16 08:28 69 17 136/85 93 12/07/16 08:15 72 13 92 12/07/16 08:04 79 14 149/99 94 12/07/16 08:00 95 Room Air 12/07/16 08:00 81 16 92 12/07/16 06:00 69 14 179/112 94 12/07/16 05:00 87 12 152/102 93 12/07/16 04:00 93 Room Air 12/07/16 04:00 36.7 58 12 160/99 93 12/07/16 03:00 67 13 157/102 92 12/07/16 01:55 67 23 139/78 94 12/07/16 01:13 58 12 151/80 93 12/07/16 01:13 58 12 151/80 93 12/07/16 00:58 61 11 124/78 93 12/07/16 00:43 61 13 153/74 92 12/07/16 00:30 61 138/71 92 Room Air 12/07/16 00:28 58 11 138/71 92 12/07/16 00:13 57 21 125/67 92 12/07/16 00:00 93 Room Air 12/07/16 00:00 36.9 59 14 126/67 93 Room Air 12/06/16 23:00 61 14 110/60 93 Room Air 12/06/16 22:00 75 16 117/62 92 Room Air 12/06/16 20:58 81 16 165/103 94 Room Air 12/06/16 20:00 37.0 76 13 148/103 95 Room Air 12/06/16 20:00 94 Room Air 12/06/16 19:29 90 12 156/111 94 Room Air 12/06/16 19:23 101 14 167/116 94 Room Air 12/06/16 18:45 87 21 93 12/06/16 18:30 82 16 94 12/06/16 18:29 87 26 169/94 94 12/06/16 18:15 87 10 94 12/06/16 18:00 87 19 95 12/06/16 17:30 90 20 93 Nasal Cannula 2.0 12/06/16 17:28 91 22 149/121 92 12/06/16 17:00 90 20 95 2/17 16:58 92 22 176/121 92 2/ 16:30 95 16 93 2/17 16:15 95 Nasal Cannula 2.0 12/06/16 16:13 37.2 105 21 167/103 95 Nasal Cannula 2.0 12/06/16 16:00 96 13 92 12/06/ 15:58 94 20 165/97 93 12/06/16 15:43 104 12 161/103 92 12/06/ 15:30 92 12 94 12/06/16 15:28 100 13 148/106 92 12/06/16 15:14 95 12 159/102 91 12/06/16 15:07 106 25 219/113 90 12/06/16 15:00 96 12 91 12/06/16 14:49 98 22 167/100 89 12/06/16 14:30 88 17 92 12/06/16 14:28 78 11 156/103 90 12/06/16 14:14 81 17 162/111 94 12/06/16 14:00 89 15 95 12/06/16 13:28 73 13 172/102 96 Nasal Cannula 2.0 12/06/16 13:13 74 20 153/84 92 12/06/16 13:00 77 16 94 12/06/16 12:58 76 12 162/101 93 12/06/16 12:43 76 11 162/100 95 12/06/16 12:30 74 11 96 12/06/16 12:28 86 25 176/96 96 12/06/16 12:17 65 15 148/88 97 12/06/16 12:13 66 16 148/88 12/06/16 12:00 65 15 96 12/06/16 11:58 72 13 168/84 96 Last 24 Hours Test 12/06/16 15:03 12/06/16 15:30 12/06/16 16:23 12/06/16 16:30 Lactic Acid Level 1.2 mmol/L Urine Opiates Screen NEG Urine Methadone, Qualitative NEG Urine Barbiturates NEG Urine Phencyclidine (PCP) Level NEG Ur Amphetamine/Methamphetamine NEG MDMA (Ecstasy) Screen NEG Urine Benzodiazepines Screen POS Urine Cocaine Metabolite NEG Urine Marijuana (THC) NEG Bedside Glucose 134 mg/dl Test 12/06/16 18:00 12/06/16 20:33 12/07/16 06:00 12/07/16 06:50 Urine Opiates Screen NEG Urine Methadone, Qualitative NEG Urine Barbiturates NEG Urine Phencyclidine (PCP) Level NEG Ur Amphetamine/Methamphetamine NEG MDMA (Ecstasy) Screen NEG Urine Benzodiazepines Screen NEG Urine Cocaine Metabolite NEG Urine Marijuana (THC) NEG Bedside Glucose 147 mg/dl 134 mg/dl White Blood Count 6.63 K/uL Red Blood Count 4.15 M/uL Hemoglobin 12.7 g/dL Hematocrit 36.8 % Mean Corpuscular Volume 88.7 fL Mean Corpuscular Hemoglobin 30.6 pg Mean Corpuscular Hemoglobin Concent 34.5 g/dl Platelet Count 192 K/uL Mean Platelet Volume 9.4 fL Neutrophils (%) (Auto) 62.7 % Lymphocytes (%) (Auto) 26.1 % Monocytes (%) (Auto) 7.4 % Eosinophils (%) (Auto) 3.0 % Basophils (%) (Auto) 0.5 % Neutrophils # (Auto) 4.16 K/uL Lymphocytes # (Auto) 1.73 K/uL Monocytes # (Auto) 0.49 K/uL Eosinophils # (Auto) 0.20 K/uL Basophils # (Auto) 0.03 K/uL RDW Standard Deviation 40.2 fL RDW Coefficient of Variation 12.7 % Immature Granulocyte % (Auto) 0.3 % Immature Granulocyte # (Auto) 0.02 K/uL Sodium Level 143 mmol/L Potassium Level 3.7 mmol/L Chloride Level 103 mmol/L Carbon Dioxide Level 29 mmol/L Anion Gap 11.0 mmol/L Blood Urea Nitrogen 10 mg/dl Creatinine 0.86 mg/dl Est Creatinine Clear Calc Drug Dose 140.0 ml/min Estimated GFR () 124.0 Estimated GFR (Non- 107.0 BUN/Creatinine Ratio 11.2 Random Glucose 140 mg/dl Lactic Acid Level 1.2 mmol/L Calcium Level 8.5 mg/dl Test 12/07/16 11:15 Bedside Glucose 170 mg/dl Imaging: repeat CT head - 12/07 : Persistent right middle cerebral artery territory infarct , similar to the preceding study. No evidence of acute hemorrhage. Exam: Physical Exam: Constitutional: appearance nourished, healthy obese Ears, Nose, Mouth and Throat: mucous membranes moist, no injection and skin normal, eyes normal Cardiovascular: normal S-1 and S-2 and regular rate and rhythm Respiratory: clear to auscultation (CTA) and no rales, rhonchi or wheeze Musculoskeletal: no peripheral edema and good distal pulses Skin: no stigmata of neurocutaneous disease noted and normal and intact Eyes: extraocular muscles intact (EOMI) and pupils equal, round and reactive to light (PERRL) NEUROLOGIC EXAMINATION: Mental status: Alert and interactive Oriented to full date and location Oriented to person Speech fluent with no evidence of aphasia Cranial Nerves smile asymmetric Reflexes: Deep tendon reflexes were symmetrical and graded 2/5. Plantar responses were flexor. 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, left arm flaccid, right hip flex plantar flex ext, left LE flex at knee Current Inpatient Medications Medications (Trade) Dose Ordered Sig/Ney Route Start Time Stop Time Status Last Admin Dose Admin Aspirin (Ecotrin Tab) 81 mg DAILY PO 12/03/16 09:00 01/02/17 08:59 Future hold 12/07/16 07:51 81 MG Budesonide/ Formoterol Fumarate (Symbicort 160/ 4.5 Inh) 2 puffs BID INH 12/03/16 09:00 01/02/17 08:59 12/07/16 07:50 2 PUFFS Dicyclomine HCl (Bentyl Tab) 20 mg QID PO 12/03/16 09:00 01/02/17 08:59 Future hold 12/07/16 07:50 20 MG Fluticasone Propionate (Flonase Nasal [place]) 2 sprays DAILY CAROLEE 12/03/16 09:00 01/02/17 08:59 12/07/16 07:50 2 SPRAYS Gabapentin (Neurontin Cap) 400 mg TID PO 12/03/16 09:00 01/02/17 08:59 Future hold 12/07/16 07:50 400 MG Trazodone HCl (Desyrel Tab) 300 mg HS PO 12/03/16 21:00 01/02/17 20:59 Future hold 12/06/16 20:56 300 MG Docusate Sodium (coLACE CAP) 100 mg TID PRN PO 12/03/16 10:00 01/02/17 09:59 Future hold Al Hydrox/Mg Hydrox/Simethicone (Maalox Max Susp) 15 ml Q4H PRN PO 12/03/16 08:15 01/02/17 08:14 Future hold Magnesium Hydroxide (Milk Of Magnesia Susp) 30 ml Q12H PRN PO 12/03/16 08:15 01/02/17 08:14 Future hold Ondansetron HCl (Zofran Inj) 4 mg Q6H PRN IV 12/03/16 08:15 01/02/17 08:14 Polyethylene (Miralax Powder Packet) 17 gm DAILY PRN PO 12/03/16 08:15 01/02/17 08:14 Future hold Miscellaneous Information (Consult Glycemic Management Pharmacy) 1 ea UD PRN N/A 12/03/16 09:21 01/02/17 09:20 Insulin Aspart (novoLOG ASPART) SLIDING SCALE ACHS SC 12/03/16 11:00 01/02/17 10:59 12/05/16 20:43 1 UNITS Glucose (Glucose 40% Gel) 15-30 GRAMS 15 GRAMS... UD PRN PO 12/03/16 09:45 01/02/17 09:44 Glucose (Glucose Chew Tab) 4-8 Tablets 4 Tabl... UD PRN PO 12/03/16 09:45 01/02/17 09:44 Dextrose (Dextrose 50% 50ML Syringe) 25-50ML OF 50% DW IV FOR... UD PRN IV 12/03/16 09:45 01/02/17 09:44 Glucagon (Glucagon Inj) 1 mg UD PRN SQ 12/03/16 09:45 01/02/17 09:44 Miscellaneous Information (Check Fentanyl Patch Placement) 1 ea QS N/A 12/03/16 16:00 01/02/17 15:59 12/07/16 07:52 1 EA Miscellaneous (Iv Fluids Completed) 1 ea PRN PRN N/A 12/03/16 12:00 12/03/17 11:59 Pantoprazole Sodium (Protonix Tab) 40 mg DAILY PO 12/04/16 09:00 01/03/17 08:59 Future hold 12/07/16 07:51 40 MG Atorvastatin Calcium (Lipitor Tab) 10 mg QAM PO 12/05/16 09:00 01/04/17 08:59 Future hold 12/07/16 07:51 10 MG Nitroglycerin (Nitrostat Tab) 0.4 mg Q5M PRN SL 12/05/16 09:15 01/04/17 09:14 Acetaminophen 650 mg 650 mg Q4H PRN PO 12/05/16 09:15 01/04/17 09:14 Future hold 12/06/16 18:21 650 MG Sodium Chloride (Nss 1000ml) 250 ml @ 999 mls/hr Q16M PRN IV 12/05/16 09:06 01/04/17 09:05 Miscellaneous Information (Pharmacist Discharge Med Rec Consult) 1 ea UD PRN N/A 12/05/16 12:45 01/04/17 12:44 Ioversol (Optiray 320) 100 ml UD PRN IV 12/05/16 15:45 12/09/16 15:44 Hydralazine HCl (HydrALAZINE INJ) 5 mg Q1H PRN IV. 12/05/16 20:00 01/04/17 19:59 12/06/16 17:54 5 MG Labetalol HCl (Normodyne IV) 5 mg Q1H PRN IV 12/05/16 20:00 01/04/17 19:59 Miscellaneous (Fentanyl Patch Remove & Waste) 1 ea Q3D@2028 N/A 12/05/16 20:29 01/04/17 20:28 Fentanyl (Duragesic Patch) 12 mcg Q3D@2029 TD 12/05/16 20:30 12/19/16 20:29 12/05/16 20:37 12 MCG Lorazepam 0.5 mg 0.5 mg Q4H PRN IV 12/06/16 01:30 01/05/17 01:29 Lorazepam/Syringe (Ativan Inj/ Syringe) 1 ml @ 1 mls/min Q4H PRN IV 12/06/16 03:15 01/05/17 03:14 Fenofibrate (Tricor Tab) 48 mg DAILY PO 12/07/16 09:00 01/06/17 08:59 12/07/16 07:52 48 MG Enoxaparin Sodium (Lovenox Inj) 40 mg Q24H SC 12/06/16 16:00 01/05/17 15:59 12/06/16 16:30 40 MG Oxycodone HCl (Roxicodone Immediate Rel Tab) 15 mg QID PO 12/07/16 13:00 12/21/16 12:59 Diazepam (Valium Tab) 5 mg QID PO 12/07/16 13:00 01/06/17 12:59 Nystatin (Mycostatin Susp) 5 ml QID PO 12/07/16 13:00 12/14/16 12:59 Impression 41 year old male s/p cardiac cath with stroke symptoms and tPa administered Plan 1. MRI with and without contrast right MCA stroke 2. start plavix 75 mg once protocol is met for tPa administration and restart aspirin 3. permissive hypertension was on pressure but no stopped 4. hypercoag work up 5. PT/OT for discharge needs 6. stress stop smoking 7. cholestrol control needed LDL < 70 8. HTN control once past critical profusion protocol unable to maintain blood pressure without pressors 9. DM control optimize 10. when stable may need formal angiogram to evaluate vessels. I have seen and discussed above patient with Dr Raymond Justice, neurology Patient seen and examined priior records and consultation notes reviewed and case discussed with Phylicia Bal Currently in the unit and is awake alert with some heglect and much denial about the severity of deficits -wants to go home reffuses to consider rehab thinks he will do fine etc which is clearly unrealistic in light of the dense left richard ( imnproving slowly but still significant ) agree with outlined plans to do coag workup at some point in the future Cardiloogy can decide about the lizeth issue and some contrast angiography in the future may be indicted but is not a high priority now Suspect an emboic event perhaps due to aortic plaque Will follow will need pt tot speech and rehab medicine consult Raymond Justice MD
[2016-12-07] MEDS: NYSTATIN SUSP 500,000 U/5 ML UDC PO SCH ×3 (13:00→21:05)
[2016-12-07] MEDS: OXYCODONE HCL IR 5 MG TAB (IMMEDIATE RELEASE) PO SCH ×3 (13:04→21:03)
[2016-12-07] MEDS: DIAZEPAM 5MG TAB PO SCH ×3 (13:04→21:02)
--- NOTE | 2016-12-07 13:34 | Pharmacy Progress Note ---
Glycemic: Assessment & Plan Date of Service Dec 07, 2016. Assessment & Plan Recent Pertinent Medications Outpatient Anti-diabetic Regimen: * metformin 500mg PO BID with meals * glipizide XR 10mg PO Daily * A1c = 7.4% --> 8.3% over the last 2 months The patient is currently receiving: * Basal insulin: * none at this time * Correctional Insulin: * NovoLog Correction per scale ACHS or q6H if NPO * Goal Range: Low 140 mg/dL - High 180 mg/dL * Correction Factor: 25 mg/dL/unit * Carb ratio of 1 unit per 9 grams CHO consumed * Oral Agents: * none at this time Risk Factors for Insulin Resistance: * Pressors: Off at this time * IVF: discontinued * Recent Surgery: brick and blocker aid labor on 12/05/16 * Diet: NPO --> T2DM (picky eater) Assessment & Plan ASSESSMENT: * ADA & AACE recommend a goal blood sugar range 140-180 mg/dl for the majority of critically ill & non-critically ill patients. However, more stringent targets may be selected in individual cases. Decrease goal range to 100-140 mg/ dL. 12/03/16 * 41 yo T2D M admitted with chest pain/SOB, BSG 191 mg/dL * A1c from 10/2016 is 7.4% which indicates good glycemic control as an outpatient * I plan to initiate weight-based NovoLog with lunch and hold outpatient orals 12/05/16 * Stroke alert today- TPA administered and patient transferred to ICU * He has received 0 units of insulin today which I assume will continue as patient remains NPO * Follow-up tomorrow if/when diet advanced 12/06/16 * Only 3 units of insulin needed over the past 24 hours with BSGs all at or below ICU goal range (current goal range 100-140mg/dL may be too aggressive for ICU status) * Currently requiring a mixture of pressors and antihypertensive agents to maintain goal BP post stroke * now with phenylephrine - may increase insulin resistance * BSG this AM 140mg/dL * continue to forgo basal insulin and only use NovoLog as needed * A1c re-ordered and shows decrease in glycemic control over the past 2 months * may need to increase metformin dose and/or follow up with outpatient provider at discharge 12/07/16 * BSGs al within goal range on 12/06 and required zero units of insulin * Today, the patient is eating better and ready for possible transfer out of the ICU * will begin home metformin at this time (Optiray given >48 hours prior to dose ) * Continue NovoLog at this time until metformin taken and tolerated. * continue to hold sulfonylurea secondary to hypoglycemic potential PLAN FOR INPATIENT GLYCEMIC CONTROL: * No basal insulin at this time * Correctional Insulin with NOVOLOG per scale ACHS * Goal Range: Low 140 mg/dL - High 180 mg/dL per ADA recommendations * Correction Factor: 25 mg/dL/unit * Nutritional / Prandial insulin per carb ratio of 1 unit per 9 grams CHO consumed * Begin metformin ER 500mg PO BID with meals * A1c current- added to D/C instructions * Please note that the plan above was derived based on current level of insulin resistance and hospital stress. These recommendations are appropriate for inpatient admission only. Plan of care upon discharge will need to be reassessed to avoid potential outpatient hypo/hyperglycemia. Thank you.
[2016-12-07] MEDS: ENOXAPARIN 40 MG/0.4 ML SYR SC SCH (16:12)
[2016-12-07] MEDS: METFORMIN HCL 500 MG TABCR PO SCH (16:45)
[2016-12-07] MEDS ORDERED: KETOROLAC TROMETHAMINE 30 MG/ML VIAL IV STA (17:11)
--- NOTE | 2016-12-07 17:15 | Progress Note ---
Subjective Date of Service: Dec 07, 2016. Subjective Pt evaluation today including: conversation w/ patient, conversation w/ family , physical exam, lab review, review of studies, review of inpatient medication list Saw/examined the patient in room 231 In the room with his He states he's doing a bit better talking to me, mild slurring speech unable to move left arm +PO intake, no swallowing issues Refuses talk of rehab after hospital stay Problem List Medical Problems: (1) Left sided chest pain Status: Acute Review of Systems Constitutional: No chills, No fever Respiratory: No cough, No shortness of breath, No sputum Cardiac: No chest pain, No edema, No palpitations Abdomen: No diarrhea, No nausea, No pain, No vomiting Neurologic: + balance problems, + numbness/tingling, + weakness (left sided), No memory loss, No vertigo Medications Current Inpatient Medications Medications (Trade) Dose Ordered Sig/Ney Route Start Time Stop Time Status Last Admin Dose Admin Aspirin (Ecotrin Tab) 81 mg DAILY PO 12/03/16 09:00 01/02/17 08:59 Future hold 12/07/16 07:51 81 MG Budesonide/ Formoterol Fumarate (Symbicort 160/ 4.5 Inh) 2 puffs BID INH 12/03/16 09:00 01/02/17 08:59 12/07/16 07:50 2 PUFFS Dicyclomine HCl (Bentyl Tab) 20 mg QID PO 12/03/16 09:00 01/02/17 08:59 Future hold 12/07/16 16:12 20 MG Fluticasone Propionate (Flonase Nasal [place]) 2 sprays DAILY CAROLEE 12/03/16 09:00 01/02/17 08:59 12/07/16 07:50 2 SPRAYS Gabapentin (Neurontin Cap) 400 mg TID PO 12/03/16 09:00 01/02/17 08:59 Future hold 12/07/16 13:08 400 MG Trazodone HCl (Desyrel Tab) 300 mg HS PO 12/03/16 21:00 01/02/17 20:59 Future hold 12/06/16 20:56 300 MG Docusate Sodium (coLACE CAP) 100 mg TID PRN PO 12/03/16 10:00 01/02/17 09:59 Future hold Al Hydrox/Mg Hydrox/Simethicone (Maalox Max Susp) 15 ml Q4H PRN PO 12/03/16 08:15 01/02/17 08:14 Future hold Magnesium Hydroxide (Milk Of Magnesia Susp) 30 ml Q12H PRN PO 12/03/16 08:15 01/02/17 08:14 Future hold Ondansetron HCl (Zofran Inj) 4 mg Q6H PRN IV 12/03/16 08:15 01/02/17 08:14 Polyethylene (Miralax Powder Packet) 17 gm DAILY PRN PO 12/03/16 08:15 01/02/17 08:14 Future hold Miscellaneous Information (Consult Glycemic Management Pharmacy) 1 ea UD PRN N/A 12/03/16 09:21 01/02/17 09:20 Insulin Aspart (novoLOG ASPART) SLIDING SCALE ACHS SC 12/03/16 11:00 01/02/17 10:59 12/07/16 11:54 3 UNITS Glucose (Glucose 40% Gel) 15-30 GRAMS 15 GRAMS... UD PRN PO 12/03/16 09:45 01/02/17 09:44 Glucose (Glucose Chew Tab) 4-8 Tablets 4 Tabl... UD PRN PO 12/03/16 09:45 01/02/17 09:44 Dextrose (Dextrose 50% 50ML Syringe) 25-50ML OF 50% DW IV FOR... UD PRN IV 12/03/16 09:45 01/02/17 09:44 Glucagon (Glucagon Inj) 1 mg UD PRN SQ 12/03/16 09:45 01/02/17 09:44 Miscellaneous Information (Check Fentanyl Patch Placement) 1 ea QS N/A 12/03/16 16:00 01/02/17 15:59 12/07/16 16:09 1 EA Miscellaneous (Iv Fluids Completed) 1 ea PRN PRN N/A 12/03/16 12:00 12/03/17 11:59 Pantoprazole Sodium (Protonix Tab) 40 mg DAILY PO 12/04/16 09:00 01/03/17 08:59 Future hold 12/07/16 07:51 40 MG Atorvastatin Calcium (Lipitor Tab) 10 mg QAM PO 12/05/16 09:00 01/04/17 08:59 Future hold 12/07/16 07:51 10 MG Nitroglycerin (Nitrostat Tab) 0.4 mg Q5M PRN SL 12/05/16 09:15 01/04/17 09:14 Acetaminophen 650 mg 650 mg Q4H PRN PO 12/05/16 09:15 01/04/17 09:14 Future hold 12/06/16 18:21 650 MG Sodium Chloride (Nss 1000ml) 250 ml @ 999 mls/hr Q16M PRN IV 12/05/16 09:06 01/04/17 09:05 Miscellaneous Information (Pharmacist Discharge Med Rec Consult) 1 ea UD PRN N/A 12/05/16 12:45 01/04/17 12:44 Ioversol (Optiray 320) 100 ml UD PRN IV 12/05/16 15:45 12/09/16 15:44 Hydralazine HCl (HydrALAZINE INJ) 5 mg Q1H PRN IV. 12/05/16 20:00 01/04/17 19:59 12/06/16 17:54 5 MG Labetalol HCl (Normodyne IV) 5 mg Q1H PRN IV 12/05/16 20:00 01/04/17 19:59 Miscellaneous (Fentanyl Patch Remove & Waste) 1 ea Q3D@9 N/A 12/05/16 20:29 01/04/17 20:28 Fentanyl (Duragesic Patch) 12 mcg Q3D@2030 TD 12/05/16 20:30 12/19/16 20:29 12/05/16 20:37 12 MCG Lorazepam 0.5 mg 0.5 mg Q4H PRN IV 12/06/16 01:30 01/05/17 01:29 Lorazepam/Syringe (Ativan Inj/ Syringe) 1 ml @ 1 mls/min Q4H PRN IV 12/06/16 03:15 01/05/17 03:14 Fenofibrate (Tricor Tab) 48 mg DAILY PO 12/07/16 09:00 01/06/17 08:59 12/07/16 07:52 48 MG Enoxaparin Sodium (Lovenox Inj) 40 mg Q24H SC 12/06/16 16:00 01/05/17 15:59 12/07/16 16:12 40 MG Oxycodone HCl (Roxicodone Immediate Rel Tab) 15 mg QID PO 12/07/16 13:00 12/21/16 12:59 12/07/16 16:13 15 MG Diazepam (Valium Tab) 5 mg QID PO 12/07/16 13:00 01/06/17 12:59 12/07/16 16:13 5 MG Nystatin (Mycostatin Susp) 5 ml QID PO 12/07/16 13:00 12/14/16 12:59 12/07/16 16:13 5 ML Metformin HCl (Glucophage Extended Rel Tab) 500 mg BIDM PO 12/07/16 16:45 01/06/17 16:44 Objective Vital Signs Date Time Temp Pulse Resp B/P Pulse Ox O2 Delivery O2 Flow Rate FiO2 12/07/16 16:00 Room Air 12/07/16 15:01 36.7 89 18 146/103 94 Room Air 12/07/16 11:40 36.7 67 14 167/90 93 12/07/16 11:40 93 Room Air 12/07/16 10:45 71 16 133/97 93 12/07/16 10:45 72 10 93 12/07/16 10:44 74 12 133/97 93 12/07/16 10:30 80 11 92 12/07/16 10:28 74 10 150/109 92 12/07/16 10:15 77 11 92 12/07/16 10:00 80 22 94 12/07/16 09:58 73 12 157/92 93 12/07/16 09:56 86 13 153/87 94 12/07/16 09:45 73 17 93 12/07/16 09:30 83 12 96 12/07/16 09:28 82 14 95 12/07/16 09:15 62 11 93 12/07/16 08:45 78 29 95 12/07/16 08:30 74 13 94 12/07/16 08:28 69 17 136/85 93 12/07/16 08:15 72 13 92 12/07/16 08:04 79 14 149/99 94 12/07/16 08:00 95 Room Air 12/07/16 08:00 81 16 92 12/07/16 06:00 69 14 179/112 94 12/07/16 05:00 87 12 152/102 93 12/07/16 04:00 93 Room Air 12/07/16 04:00 36.7 58 12 160/99 93 12/07/16 03:00 67 13 157/102 92 12/07/16 01:55 67 23 139/78 94 12/07/16 01:13 58 12 151/80 93 12/07/16 01:13 58 12 151/80 93 12/07/16 00:58 61 11 124/78 93 12/07/16 00:43 61 13 153/74 92 12/07/16 00:30 61 138/71 92 Room Air 12/07/16 00:28 58 11 138/71 92 12/07/16 00:13 57 21 125/67 92 12/07/16 00:00 93 Room Air 12/07/16 00:00 36.9 59 14 126/67 93 Room Air 12/06/16 23:00 61 14 110/60 93 Room Air 12/06/16 22:00 75 16 117/62 92 Room Air 12/06/16 20:58 81 16 165/103 94 Room Air 12/06/16 20:00 37.0 76 13 148/103 95 Room Air 12/06/16 20:00 94 Room Air 12/06/16 19:29 90 12 156/111 94 Room Air 12/06/16 19:23 101 14 167/116 94 Room Air 12/06/16 18:45 87 21 93 12/06/16 18:30 82 16 94 12/06/16 18:29 87 26 169/94 94 12/06/16 18:15 87 10 94 12/06/16 18:00 87 19 95 12/06/16 17:30 90 20 93 Nasal Cannula 2.0 12/06/16 17:28 91 22 149/121 92 Physical Exam General Appearance: no apparent distress, + obese Respiratory/Chest: lungs clear, normal breath sounds, no respiratory distress, no accessory muscle use Cardiovascular: regular rate, rhythm, no edema, no murmur Abdomen: normal bowel sounds, non tender, soft Extremities: non-tender, normal inspection, no pedal edema Neurologic/Psychiatric: + motor weakness (left sided motor dysfunction; cannot move left arm much, decreased sensation left side, preferential right gaze) Laboratory Results Last 24 Hours Test 12/06/16 18:00 12/06/16 20:33 12/07/16 06:00 12/07/16 06:50 Urine Opiates Screen NEG Urine Methadone, Qualitative NEG Urine Barbiturates NEG Urine Phencyclidine (PCP) Level NEG Ur Amphetamine/Methamphetamine NEG MDMA (Ecstasy) Screen NEG Urine Benzodiazepines Screen NEG Urine Cocaine Metabolite NEG Urine Marijuana (THC) NEG Bedside Glucose 147 mg/dl 134 mg/dl White Blood Count 6.63 K/uL Red Blood Count 4.15 M/uL Hemoglobin 12.7 g/dL Hematocrit 36.8 % Mean Corpuscular Volume 88.7 fL Mean Corpuscular Hemoglobin 30.6 pg Mean Corpuscular Hemoglobin Concent 34.5 g/dl Platelet Count 192 K/uL Mean Platelet Volume 9.4 fL Neutrophils (%) (Auto) 62.7 % Lymphocytes (%) (Auto) 26.1 % Monocytes (%) (Auto) 7.4 % Eosinophils (%) (Auto) 3.0 % Basophils (%) (Auto) 0.5 % Neutrophils # (Auto) 4.16 K/uL Lymphocytes # (Auto) 1.73 K/uL Monocytes # (Auto) 0.49 K/uL Eosinophils # (Auto) 0.20 K/uL Basophils # (Auto) 0.03 K/uL RDW Standard Deviation 40.2 fL RDW Coefficient of Variation 12.7 % Immature Granulocyte % (Auto) 0.3 % Immature Granulocyte # (Auto) 0.02 K/uL Sodium Level 143 mmol/L Potassium Level 3.7 mmol/L Chloride Level 103 mmol/L Carbon Dioxide Level 29 mmol/L Anion Gap 11.0 mmol/L Blood Urea Nitrogen 10 mg/dl Creatinine 0.86 mg/dl Est Creatinine Clear Calc Drug Dose 140.0 ml/min Estimated GFR () 124.0 Estimated GFR (Non- 107.0 BUN/Creatinine Ratio 11.2 Random Glucose 140 mg/dl Lactic Acid Level 1.2 mmol/L Calcium Level 8.5 mg/dl Test 12/07/16 11:15 12/07/16 16:00 Bedside Glucose 170 mg/dl 121 mg/dl Assessment and Plan This is a 41 year old male with PMH of HTN, DM2, hypertriglyceridemia, asthma, tobacco use disorder presents with left sided chest pain Evolving right MCA territory infarct 2/3 appreciate neurology input on this matter patient has been moved out of ICU to PCU will continue aspirin start Plavix continue statin therapy PT/OT should be discharged to rehab - but he is refusing further management as per neurology 2/ patient worsening clinically from yesterday nonverbal today preferential right gaze, left arm neglect day #2 of tPA start aspirin+plavix after protocol speech/PT/OT continue nicardipine drip, trying to maintain blood pressure < 180/100 as per neurology; should not decrease blood pressure too much to avoid ischemia 12/05 Left sided sensory and motor weakness slurred speech s/p tPA neurochecks as per protocol neurological consultation Head CT negative x 2 PT/OT/speech Chest Pain r/o ACS 12/05 s/p cardiac cath mild disease; nonobstructive chest pain not likely cardiac in nature appreciate cardiology input 12/04 Patient presents with left sided chest pain Pain around 5/10 this morning, but improved with SL nitro cardiac enzymes negative x [address] changes, will repeat EKG continue aspirin, b-kirk has had cardiac cath over 5 years prior with some "build-up" as per patient due to risk factors, will consult cardiology for further input Hypertriglyceridemia/Hypercholesterolemia Triglycerides > 600 Cholesterol > 200 will start statin DM2 hold oral agents insulin sliding scale pharmacy glycemic control consult HTN 12/05 nicardipine drip uptitrate to keep blood pressure from > 180/100 as per tpa protocol; can add b-kirk if needed 12/04 blood pressures are stable today elevated on presentation continue amlodipine, EDWARD-I, b-kirk Asthma stable, no exacerbation continue home inhalers GERD cont. PPI Bipolar Disorder continue home medications DVT ppx Lovenox FULL CODE
[2016-12-07] MEDS: TRAZODONE HCL 100 MG TAB PO SCH (21:05)
[2016-12-08] VITALS (8 sets, daily range): BP systolic 151–180; BP diastolic 74–102; PULSE 79–104; TEMP 36.8–36.9; O2SAT 93–97
[2016-12-08 06:48] LABS: HEMATOCRIT 36.1 % (42-52); MEAN CELL VOLUME 88.5 fL (80-100); MEAN CORPUSCULAR HEMOGLOBIN 29.9 pg (25-34); MEAN CORPUSCULAR HGB CONC 33.8 g/dl (32-36); MEAN PLATELET VOLUME 9.5 fL (7.4-10.4); PLATELET COUNT 163 K/uL (130-400); RED BLOOD COUNT 4.08 M/uL (4.7-6.1); WHITE BLOOD COUNT 7.33 K/uL (4.8-10.8)
[2016-12-08 07:18] LABS: BUN/CREATININE RATIO 19.6 (10-20); CALCIUM 8.5 mg/dl (8.5-10.1); MAGNESIUM 2.1 mg/dl (1.8-2.4)
[2016-12-08] MEDS: CHECK FENTANYL PATCH PLACEMENT SCH ×2 (07:50→16:09)
[2016-12-08] MEDS: DICYCLOMINE HCL 20 MG TAB PO SCH ×4 (07:52→21:59)
[2016-12-08] MEDS: ASPIRIN 81 MG ECTAB PO SCH (07:52)
[2016-12-08] MEDS: FENOFIBRATE 48 MG TAB PO SCH (07:52)
[2016-12-08] MEDS: CLOPIDOGREL BISULFATE 75 MG TAB PO SCH (07:52)
[2016-12-08] MEDS: FLUTICASONE PROPIONATE NA SPR 16 GM BTL NAE SCH (07:53)
[2016-12-08] MEDS: ATORVASTATIN 10 MG TAB PO SCH (07:53)
[2016-12-08] MEDS: NYSTATIN SUSP 500,000 U/5 ML UDC PO SCH ×4 (07:53→22:00)
[2016-12-08] MEDS: GABAPENTIN 400 MG CAP PO SCH ×3 (07:53→21:58)
[2016-12-08] MEDS: METFORMIN HCL 500 MG TABCR PO SCH ×3 (07:53→16:20)
[2016-12-08] MEDS: BUDESONIDE/FORMOTEROL FUMARATE 160/4.5 60 PUFFS/INHALER INH SCH ×2 (07:53→21:00)
[2016-12-08] MEDS: PANTOprazole SOD 40 MG TAB PO SCH (07:54)
[2016-12-08] MEDS: DIAZEPAM 5MG TAB PO SCH ×4 (08:02→22:01)
[2016-12-08] MEDS: OXYCODONE HCL IR 5 MG TAB (IMMEDIATE RELEASE) PO SCH ×4 (08:02→22:02)
[2016-12-08] MEDS: KETOROLAC TROMETHAMINE 30 MG/ML VIAL IV PRN (08:03)
[2016-12-08] MEDS: INSULIN ASPART 100 UNITS/ML 3 ML PEN SC SCH ×4 (08:49→21:00)
--- NOTE | 2016-12-08 12:24 | Progress Note ---
Subjective Date of Service: Dec 08, 2016. Subjective Pt evaluation today including: conversation w/ patient, physical exam, lab review, review of studies, review of inpatient medication list Saw/examined the patient in room 231 Continues to have left sided neglect Refusing to go to rehab continues working with PT/OT Problem List Medical Problems: (1) Left sided chest pain Status: Acute Review of Systems Constitutional: No chills, No fever Eyes: + problem reported (+headache) Respiratory: No cough, No shortness of breath, No sputum Cardiac: No chest pain Abdomen: No diarrhea, No nausea, No pain, No vomiting Neurologic: + paralysis, + weakness, No memory loss Medications Current Inpatient Medications Medications (Trade) Dose Ordered Sig/Ney Route Start Time Stop Time Status Last Admin Dose Admin Aspirin (Ecotrin Tab) 81 mg DAILY PO 12/03/16 09:00 01/02/17 08:59 Future hold 12/08/16 07:52 81 MG Budesonide/ Formoterol Fumarate (Symbicort 160/ 4.5 Inh) 2 puffs BID INH 12/03/16 09:00 01/02/17 08:59 12/08/16 07:53 2 PUFFS Dicyclomine HCl (Bentyl Tab) 20 mg QID PO 12/03/16 09:00 01/02/17 08:59 Future hold 12/08/16 07:52 20 MG Fluticasone Propionate (Flonase Nasal [place]) 2 sprays DAILY CAROLEE 12/03/16 09:00 01/02/17 08:59 12/08/16 07:53 2 SPRAYS Gabapentin (Neurontin Cap) 400 mg TID PO 12/03/16 09:00 01/02/17 08:59 Future hold 12/08/16 07:53 400 MG Trazodone HCl (Desyrel Tab) 300 mg HS PO 12/03/16 21:00 01/02/17 20:59 Future hold 12/07/16 21:05 300 MG Docusate Sodium (coLACE CAP) 100 mg TID PRN PO 12/03/16 10:00 01/02/17 09:59 Future hold Al Hydrox/Mg Hydrox/Simethicone (Maalox Max Susp) 15 ml Q4H PRN PO 12/03/16 08:15 01/02/17 08:14 Future hold Magnesium Hydroxide (Milk Of Magnesia Susp) 30 ml Q12H PRN PO 12/03/16 08:15 01/02/17 08:14 Future hold Ondansetron HCl (Zofran Inj) 4 mg Q6H PRN IV 12/03/16 08:15 01/02/17 08:14 Polyethylene (Miralax Powder Packet) 17 gm DAILY PRN PO 12/03/16 08:15 01/02/17 08:14 Future hold Miscellaneous Information (Consult Glycemic Management Pharmacy) 1 ea UD PRN N/A 12/03/16 09:21 01/02/17 09:20 Insulin Aspart (novoLOG ASPART) SLIDING SCALE ACHS SC 12/03/16 11:00 01/02/17 10:59 12/08/16 08:49 2 UNITS Glucose (Glucose 40% Gel) 15-30 GRAMS 15 GRAMS... UD PRN PO 12/03/16 09:45 01/02/17 09:44 Glucose (Glucose Chew Tab) 4-8 Tablets 4 Tabl... UD PRN PO 12/03/16 09:45 01/02/17 09:44 Dextrose (Dextrose 50% 50ML Syringe) 25-50ML OF 50% DW IV FOR... UD PRN IV 12/03/16 09:45 01/02/17 09:44 Glucagon (Glucagon Inj) 1 mg UD PRN SQ 12/03/16 09:45 01/02/17 09:44 Miscellaneous Information (Check Fentanyl Patch Placement) 1 ea QS N/A 12/03/16 16:00 01/02/17 15:59 12/08/16 07:50 1 EA Miscellaneous (Iv Fluids Completed) 1 ea PRN PRN N/A 12/03/16 12:00 12/03/17 11:59 Pantoprazole Sodium (Protonix Tab) 40 mg DAILY PO 12/04/16 09:00 01/03/17 08:59 Future hold 12/08/16 07:54 40 MG Atorvastatin Calcium (Lipitor Tab) 10 mg QAM PO 12/05/16 09:00 01/04/17 08:59 Future hold 12/08/16 07:53 10 MG Nitroglycerin (Nitrostat Tab) 0.4 mg Q5M PRN SL 12/05/16 09:15 01/04/17 09:14 Acetaminophen 650 mg 650 mg Q4H PRN PO 12/05/16 09:15 01/04/17 09:14 Future hold 12/06/16 18:21 650 MG Sodium Chloride (Nss 1000ml) 250 ml @ 999 mls/hr Q16M PRN IV 12/05/16 09:06 01/04/17 09:05 Miscellaneous Information (Pharmacist Discharge Med Rec Consult) 1 ea UD PRN N/A 12/05/16 12:45 01/04/17 12:44 Ioversol (Optiray 320) 100 ml UD PRN IV 12/05/16 15:45 12/09/16 15:44 Hydralazine HCl (HydrALAZINE INJ) 5 mg Q1H PRN IV. 12/05/16 20:00 01/04/17 19:59 12/06/16 17:54 5 MG Labetalol HCl (Normodyne IV) 5 mg Q1H PRN IV 12/05/16 20:00 01/04/17 19:59 Miscellaneous (Fentanyl Patch Remove & Waste) 1 ea Q3D@2028 N/A 12/05/16 20:29 01/04/17 20:28 Fentanyl (Duragesic Patch) 12 mcg Q3D@2029 TD 12/05/16 20:30 12/19/16 20:29 12/05/16 20:37 12 MCG Lorazepam 0.5 mg 0.5 mg Q4H PRN IV 12/06/16 01:30 01/05/17 01:29 Lorazepam/Syringe (Ativan Inj/ Syringe) 1 ml @ 1 mls/min Q4H PRN IV 12/06/16 03:15 01/05/17 03:14 Fenofibrate (Tricor Tab) 48 mg DAILY PO 12/07/16 09:00 01/06/17 08:59 12/08/16 07:52 48 MG Enoxaparin Sodium (Lovenox Inj) 40 mg Q24H SC 12/06/16 16:00 01/05/17 15:59 12/07/16 16:12 40 MG Oxycodone HCl (Roxicodone Immediate Rel Tab) 15 mg QID PO 12/07/16 13:00 12/21/16 12:59 12/08/16 08:02 15 MG Diazepam (Valium Tab) 5 mg QID PO 12/07/16 13:00 01/06/17 12:59 12/08/16 08:02 5 MG Nystatin (Mycostatin Susp) 5 ml QID PO 12/07/16 13:00 12/14/16 12:59 12/08/16 07:53 5 ML Metformin HCl (Glucophage Extended Rel Tab) 500 mg BIDM PO 12/07/16 16:45 01/06/17 16:44 12/08/16 07:53 500 MG Clopidogrel Bisulfate (plAVix TAB) 75 mg QAM PO 12/08/16 09:00 01/07/17 08:59 12/08/16 07:52 75 MG Ketorolac Tromethamine (Toradol Inj) 30 mg Q6H PRN IV 12/07/16 17:15 12/12/16 17:14 12/08/16 08:03 30 MG Objective Vital Signs Date Time Temp Pulse Resp B/P Pulse Ox O2 Delivery O2 Flow Rate FiO2 12/08/16 11:25 36.8 85 24 151/91 93 Room Air 12/08/16 08:00 94 Room Air 12/08/16 07:40 36.9 104 22 159/91 94 Room Air 12/08/16 04:00 Room Air 12/08/16 03:46 36.9 80 20 164/91 96 Room Air 12/08/16 00:00 Room Air 12/07/16 22:58 36.6 103 20 158/106 96 Room Air 12/07/16 20:00 Room Air 12/07/16 18:56 36.7 96 18 131/89 95 Room Air 12/07/16 16:00 Room Air 12/07/16 15:01 36.7 89 18 146/103 94 Room Air Physical Exam General Appearance: no apparent distress ENT: hearing grossly normal Respiratory/Chest: lungs clear, normal breath sounds, no respiratory distress, no accessory muscle use Cardiovascular: regular rate, rhythm, no edema, no murmur Extremities: non-tender, normal inspection, no pedal edema Neurologic/Psychiatric: alert, + facial droop, + motor weakness (left sided neglect) Laboratory Results Last 24 Hours Test 12/07/16 16:00 12/07/16 20:39 12/08/16 06:08 12/08/16 06:32 Bedside Glucose 121 mg/dl 148 mg/dl 164 mg/dl White Blood Count 7.33 K/uL Red Blood Count 4.08 M/uL Hemoglobin 12.2 g/dL Hematocrit 36.1 % Mean Corpuscular Volume 88.5 fL Mean Corpuscular Hemoglobin 29.9 pg Mean Corpuscular Hemoglobin Concent 33.8 g/dl RDW Standard Deviation 40.8 fL RDW Coefficient of Variation 12.7 % Platelet Count 163 K/uL Mean Platelet Volume 9.5 fL Sodium Level 139 mmol/L Potassium Level 4.0 mmol/L Chloride Level 103 mmol/L Carbon Dioxide Level 27 mmol/L Anion Gap 9.0 mmol/L Blood Urea Nitrogen 20 mg/dl Creatinine 1.00 mg/dl Est Creatinine Clear Calc Drug Dose 122.0 ml/min Estimated GFR () 107.1 Estimated GFR (Non- 92.4 BUN/Creatinine Ratio 19.6 Random Glucose 161 mg/dl Calcium Level 8.5 mg/dl Magnesium Level 2.1 mg/dl Test 12/08/16 11:15 Bedside Glucose 165 mg/dl Assessment and Plan This is a 41 year old male with PMH of HTN, DM2, hypertriglyceridemia, asthma, tobacco use disorder presents with left sided chest pain Right MCA territory infarct 12/08 appreciate neurology input continue aspirin, plavix, statin needs tighter blood pressure, sugar, and cholesterol control at home PT/OT refusing rehab - may discharge home with home health in 1-2 days 12/07 appreciate neurology input on this matter patient has been moved out of ICU to PCU will continue aspirin start Plavix continue statin therapy PT/OT should be discharged to rehab - but he is refusing further management as per neurology / patient worsening clinically from yesterday nonverbal today preferential right gaze, left arm neglect day #2 of tPA start aspirin+plavix after protocol speech/PT/OT continue nicardipine drip, trying to maintain blood pressure < 180/100 as per neurology; should not decrease blood pressure too much to avoid ischemia 12/05 Left sided sensory and motor weakness slurred speech s/p tPA neurochecks as per protocol neurological consultation Head CT negative x 2 PT/OT/speech Chest Pain r/o ACS 12/05 s/p cardiac cath mild disease; nonobstructive chest pain not likely cardiac in nature appreciate cardiology input 12/04 Patient presents with left sided chest pain Pain around 5/10 this morning, but improved with SL nitro cardiac enzymes negative x [address] changes, will repeat EKG continue aspirin, b-kirk has had cardiac cath over 5 years prior with some "build-up" as per patient due to risk factors, will consult cardiology for further input Hypertriglyceridemia/Hypercholesterolemia Triglycerides > 600 Cholesterol > 200 will start statin DM2 hold oral agents insulin sliding scale pharmacy glycemic control consult HTN 12/05 nicardipine drip uptitrate to keep blood pressure from > 180/100 as per tpa protocol; can add b-kirk if needed 12/04 blood pressures are stable today elevated on presentation continue amlodipine, EDWARD-I, b-kirk Asthma stable, no exacerbation continue home inhalers GERD cont. PPI Bipolar Disorder continue home medications DVT ppx Lovenox FULL CODE
--- NOTE | 2016-12-08 13:48 | Pharmacy Progress Note ---
Glycemic Control: Progress Nt Date of Service Dec 08, 2016. Scope Glycemic Pharmacist consulted for glycemic control and to write orders per [facility] inpatient glycemic control protocol. Objective Accuchecks BSG (last 24hrs): Test 12/07/16 16:00 12/07/16 20:39 12/08/16 06:08 12/08/16 06:32 Bedside Glucose 121 mg/dl (70-99) 148 mg/dl (70-99) 164 mg/dl (70-99) Random Glucose 161 mg/dl (70-99) Test 12/08/16 11:15 Bedside Glucose 165 mg/dl (70-99) Laboratory Data (last 24hrs) Test 12/08/16 06:08 Anion Gap 9.0 mmol/L BUN/Creatinine Ratio 19.6 Blood Urea Nitrogen 20 mg/dl Creatinine 1.00 mg/dl Potassium Level 4.0 mmol/L Sodium Level 139 mmol/L White Blood Count 7.33 K/uL HbA1c: Test 12/05/16 10:50 Hemoglobin A1c 8.3 % (4.5-5.6) H Recent Pertinent Medications Outpatient Anti-diabetic Regimen: * metformin 500mg PO BID with meals * glipizide XR 10mg PO Daily * A1c = 7.4% --> 8.3% over the last 2 months The patient is currently receiving: * Basal insulin: N/A none needed * Correctional Insulin: Novolog Correction per scale ACHS Goal Range: Low 140 mg/dL - High 180 mg/dL Correction Factor: 25 mg/dL/unit * Prandial insulin: Per carb ratio of 1 unit per 9 grams CHO consumed * Oral Agents: Metformin ER 500mg PO BID Assessment & Plan ASSESSMENT: * 41yo T2DM male admitted with CP/SOB. Oral antidiabetic agents held on admission and pt initiated on SQ bolus insulin we weight based dosing. * Pt status improved, transferred out of ICU 12/07/16 --> goal range for bolus insulin will need updated * Metformin resumed once transferred out of ICU per gardening supervisor on 12/07/16. ( Optiray given >48 hours prior to dose) * Continue to hold sulfonylurea secondary to hypoglycemic potential * PO intake/diet improving. Minimal changes have been required to insulin regimen over the past few days. * BSGs ranging 121-170mg/dl over the past 24hrs. * ADA & AACE recommend a goal blood sugar range 140-180 mg/dl for the majority of critically ill & non-critically ill patients. However, more stringent targets may be selected in individual cases. Will utilize more stringent goal range of 120 -150mg/dl based on age. * No changes needed again today, pharmacy will sign off of glycemic consult. PLAN FOR INPATIENT GLYCEMIC CONTROL: No changes needed today. Pharmacy is signing off of glycemic consult. Please feel free to re-consult if needed. * Continue to hold outpatient Glipizide for inpatient use * Correctional Insulin with NOVOLOG per scale ACHS or Q6hrs while NPO * Goal Range: Low 120 mg/dL - High 150 mg/dL * Correction Factor: 25 mg/dL/unit * Nutritional / Prandial insulin per carb ratio of 1 unit per 9 grams CHO consumed RECOMMENDATIONS FOR DISCHARGE: * A1c re-ordered and shows decrease in glycemic control over the past 2 months * may need to increase metformin dose and/or follow up with outpatient provider at discharge * Please note that the plan above was derived based on current level of insulin resistance and hospital stress. These recommendations are appropriate for inpatient admission only. Plan of care upon discharge will need to be reassessed to avoid potential outpatient hypo/hyperglycemia. Thank you.
--- NOTE | 2016-12-08 15:07 | PROGRESS NOTE ---
DATE: 12/08/2016 Gerber looks much the same as he did yesterday. He can find his left arm. He seems aware that he has a paralysis but I am not sure he is aware of the severity of the process and he still has significant head and eye deviation to the right, probably has a left field cut and neglect, but does not seem to neglect bilaterally presented cutaneous stimuli as much as he did before. He still cannot move the arm at all voluntarily and the leg moves to a certain degree but primarily when he rolls over on his right side, the left leg will roll with it. He would not move it voluntarily today. He is still little resistant to the concept of rehabilitation service and this is unfortunate but I do not think he really realizes the density of his deficit and thinks that he could be taken care of at home. We will see how this works out. Again at some point in the future, he should have a full coagulation workup. This could probably wait a week to allow all the effects of the TPA to be out of the system. At some point he may need a formal angiographic analysis of the cerebral circulation but again this could wait as well. The CTA is essentially normal so I am not sure what a full catheter study would add and in light of the fact that the current event may have been cath related I would be a bit reluctant to pursue this in the near future Right now the major issue is his rehabilitation efforts and disposition. He should continue his antiplatelet drugs at this point. MARJORIE
[2016-12-08] MEDS: ENOXAPARIN 40 MG/0.4 ML SYR SC SCH (16:16)
[2016-12-08] MEDS: FENTANYL PATCH REMOVE & WASTE SCH (20:29)
[2016-12-08] MEDS: FENTANYL 12 MCG/HR TDSY TD SCH ×2 (20:30→22:27)
[2016-12-08] MEDS: TRAZODONE HCL 100 MG TAB PO SCH (21:58)
[2016-12-09] VITALS (8 sets, daily range): BP systolic 125–165; BP diastolic 70–104; PULSE 63–90; TEMP 36.5–37.1; O2SAT 91–96
[2016-12-09] MEDS: CHECK FENTANYL PATCH PLACEMENT SCH ×4 (00:26→23:47)
[2016-12-09 06:08] LABS: MEAN CELL VOLUME 89.5 fL (80-100); MEAN CORPUSCULAR HEMOGLOBIN 29.9 pg (25-34); MEAN CORPUSCULAR HGB CONC 33.4 g/dl (32-36); MEAN PLATELET VOLUME 9.5 fL (7.4-10.4); PLATELET COUNT 156 K/uL (130-400); RED BLOOD COUNT 3.91 M/uL (4.7-6.1); WHITE BLOOD COUNT 5.27 K/uL (4.8-10.8)
[2016-12-09 06:47] LABS: BUN/CREATININE RATIO 19.7 (10-20); CALCIUM 8.5 mg/dl (8.5-10.1); CREATININE 0.96 mg/dl (0.60-1.40)
[2016-12-09] MEDS: INSULIN ASPART 100 UNITS/ML 3 ML PEN SC SCH ×4 (08:24→20:25)
[2016-12-09] MEDS: METFORMIN HCL 500 MG TABCR PO SCH ×2 (08:24→16:29)
[2016-12-09] MEDS: BUDESONIDE/FORMOTEROL FUMARATE 160/4.5 60 PUFFS/INHALER INH SCH ×2 (08:25→21:13)
[2016-12-09] MEDS: DICYCLOMINE HCL 20 MG TAB PO SCH ×4 (08:26→21:14)
[2016-12-09] MEDS: ASPIRIN 81 MG ECTAB PO SCH (08:26)
[2016-12-09] MEDS: FLUTICASONE PROPIONATE NA SPR 16 GM BTL NAE SCH (08:26)
[2016-12-09] MEDS: GABAPENTIN 400 MG CAP PO SCH ×3 (08:28→21:13)
[2016-12-09] MEDS: NYSTATIN SUSP 500,000 U/5 ML UDC PO SCH ×4 (08:28→21:15)
[2016-12-09] MEDS: ATORVASTATIN 10 MG TAB PO SCH (08:28)
[2016-12-09] MEDS: CLOPIDOGREL BISULFATE 75 MG TAB PO SCH (08:28)
[2016-12-09] MEDS: FENOFIBRATE 48 MG TAB PO SCH (08:29)
[2016-12-09] MEDS: PANTOprazole SOD 40 MG TAB PO SCH (08:29)
[2016-12-09] MEDS: DIAZEPAM 5MG TAB PO SCH ×4 (08:32→21:13)
[2016-12-09] MEDS: OXYCODONE HCL IR 5 MG TAB (IMMEDIATE RELEASE) PO SCH ×4 (08:33→21:14)
--- NOTE | 2016-12-09 10:37 | Progress Note ---
Subjective Date of Service: Dec 09, 2016. Subjective Pt evaluation today including: conversation w/ patient, physical exam, lab review, review of studies, review of inpatient medication list Saw/examined the patient in room 231 States his vision seems more blurry today Still unable to move left arm/leg Still refusing rehab Problem List Medical Problems: (1) Left sided chest pain Status: Acute Review of Systems Constitutional: No chills, No fever Eyes: + diplopia ENT: + problem reported (+headache) Respiratory: No cough, No shortness of breath, No sputum Cardiac: No chest pain Abdomen: No diarrhea, No nausea, No pain, No vomiting Neurologic: + paralysis (left leg/left arm) Medications Current Inpatient Medications Medications (Trade) Dose Ordered Sig/Ney Route Start Time Stop Time Status Last Admin Dose Admin Aspirin (Ecotrin Tab) 81 mg DAILY PO 12/03/16 09:00 01/02/17 08:59 Future hold 12/09/16 08:26 81 MG Budesonide/ Formoterol Fumarate (Symbicort 160/ 4.5 Inh) 2 puffs BID INH 12/03/16 09:00 01/02/17 08:59 12/09/16 08:25 2 PUFFS Dicyclomine HCl (Bentyl Tab) 20 mg QID PO 12/03/16 09:00 01/02/17 08:59 Future hold 12/09/16 08:26 20 MG Fluticasone Propionate (Flonase Nasal [place]) 2 sprays DAILY CAROLEE 12/03/16 09:00 01/02/17 08:59 12/09/16 08:26 2 SPRAYS Gabapentin (Neurontin Cap) 400 mg TID PO 12/03/16 09:00 01/02/17 08:59 Future hold 12/09/16 08:28 400 MG Trazodone HCl (Desyrel Tab) 300 mg HS PO 12/03/16 21:00 01/02/17 20:59 Future hold 12/08/16 21:58 300 MG Docusate Sodium (coLACE CAP) 100 mg TID PRN PO 12/03/16 10:00 01/02/17 09:59 Future hold Al Hydrox/Mg Hydrox/Simethicone (Maalox Max Susp) 15 ml Q4H PRN PO 12/03/16 08:15 01/02/17 08:14 Future hold Magnesium Hydroxide (Milk Of Magnesia Susp) 30 ml Q12H PRN PO 12/03/16 08:15 01/02/17 08:14 Future hold Ondansetron HCl (Zofran Inj) 4 mg Q6H PRN IV 12/03/16 08:15 01/02/17 08:14 Polyethylene (Miralax Powder Packet) 17 gm DAILY PRN PO 12/03/16 08:15 01/02/17 08:14 Future hold Insulin Aspart (novoLOG ASPART) SLIDING SCALE ACHS SC 12/03/16 11:00 01/02/17 10:59 12/08/16 12:43 8 UNITS Glucose (Glucose 40% Gel) 15-30 GRAMS 15 GRAMS... UD PRN PO 12/03/16 09:45 01/02/17 09:44 Glucose (Glucose Chew Tab) 4-8 Tablets 4 Tabl... UD PRN PO 12/03/16 09:45 01/02/17 09:44 Dextrose (Dextrose 50% 50ML Syringe) 25-50ML OF 50% DW IV FOR... UD PRN IV 12/03/16 09:45 01/02/17 09:44 Glucagon (Glucagon Inj) 1 mg UD PRN SQ 12/03/16 09:45 01/02/17 09:44 Miscellaneous Information (Check Fentanyl Patch Placement) 1 ea QS N/A 12/03/16 16:00 01/02/17 15:59 12/09/16 08:25 1 EA Miscellaneous (Iv Fluids Completed) 1 ea PRN PRN N/A 12/03/16 12:00 12/03/17 11:59 Pantoprazole Sodium (Protonix Tab) 40 mg DAILY PO 12/04/16 09:00 01/03/17 08:59 Future hold 12/09/16 08:29 40 MG Atorvastatin Calcium (Lipitor Tab) 10 mg QAM PO 12/05/16 09:00 01/04/17 08:59 Future hold 12/09/16 08:28 10 MG Nitroglycerin (Nitrostat Tab) 0.4 mg Q5M PRN SL 12/05/16 09:15 01/04/17 09:14 Acetaminophen 650 mg 650 mg Q4H PRN PO 12/05/16 09:15 01/04/17 09:14 Future hold 12/06/16 18:21 650 MG Sodium Chloride (Nss 1000ml) 250 ml @ 999 mls/hr Q16M PRN IV 12/05/16 09:06 01/04/17 09:05 Miscellaneous Information (Pharmacist Discharge Med Rec Consult) 1 ea UD PRN N/A 12/05/16 12:45 01/04/17 12:44 Ioversol (Optiray 320) 100 ml UD PRN IV 12/05/16 15:45 12/09/16 15:44 Hydralazine HCl (HydrALAZINE INJ) 5 mg Q1H PRN IV. 12/05/16 20:00 01/04/17 19:59 12/06/16 17:54 5 MG Labetalol HCl (Normodyne IV) 5 mg Q1H PRN IV 12/05/16 20:00 01/04/17 19:59 Miscellaneous (Fentanyl Patch Remove & Waste) 1 ea Q3D@2028 N/A 12/05/16 20:29 01/04/17 20:28 Fentanyl (Duragesic Patch) 12 mcg Q3D@2029 TD 12/05/16 20:30 12/19/16 20:29 12/08/16 22:27 12 MCG Lorazepam 0.5 mg 0.5 mg Q4H PRN IV 12/06/16 01:30 01/05/17 01:29 Lorazepam/Syringe (Ativan Inj/ Syringe) 1 ml @ 1 mls/min Q4H PRN IV 12/06/16 03:15 01/05/17 03:14 Fenofibrate (Tricor Tab) 48 mg DAILY PO 12/07/16 09:00 01/06/17 08:59 12/09/16 08:29 48 MG Enoxaparin Sodium (Lovenox Inj) 40 mg Q24H SC 12/06/16 16:00 01/05/17 15:59 12/08/16 16:16 40 MG Oxycodone HCl (Roxicodone Immediate Rel Tab) 15 mg QID PO 12/07/16 13:00 12/21/16 12:59 12/09/16 08:33 15 MG Diazepam (Valium Tab) 5 mg QID PO 12/07/16 13:00 01/06/17 12:59 12/09/16 08:32 5 MG Nystatin (Mycostatin Susp) 5 ml QID PO 12/07/16 13:00 12/14/16 12:59 12/09/16 08:28 5 ML Metformin HCl (Glucophage Extended Rel Tab) 500 mg BIDM PO 12/07/16 16:45 01/06/17 16:44 12/08/16 07:53 500 MG Clopidogrel Bisulfate (plAVix TAB) 75 mg QAM PO 12/08/16 09:00 01/07/17 08:59 12/09/16 08:28 75 MG Ketorolac Tromethamine (Toradol Inj) 30 mg Q6H PRN IV 12/07/16 17:15 12/12/16 17:14 12/08/16 08:03 30 MG Objective Vital Signs Date Time Temp Pulse Resp B/P Pulse Ox O2 Delivery O2 Flow Rate FiO2 12/09/16 08:00 96 Room Air 12/09/16 07:17 36.7 82 20 131/70 91 4.0 12/09/16 06:56 36.8 63 18 156/104 94 Room Air 12/09/16 04:00 Room Air 12/09/16 03:54 36.7 89 16 165/77 94 Room Air 12/09/16 00:00 Room Air 12/08/16 22:51 36.8 87 20 177/97 94 Room Air 12/08/16 20:19 36.9 79 18 164/102 97 Room Air 12/08/16 20:00 Room Air 12/08/16 16:00 Room Air 12/08/16 15:10 36.8 90 20 180/74 96 Room Air 12/08/16 12:00 93 Room Air 12/08/16 11:25 36.8 85 24 151/91 93 Room Air Physical Exam General Appearance: no apparent distress Respiratory/Chest: lungs clear, normal breath sounds, no respiratory distress, no accessory muscle use Cardiovascular: regular rate, rhythm, no edema, no murmur Neurologic/Psychiatric: oriented x 3, + facial droop, + motor weakness (left leg/left arm paralysis), + pertinent finding (decreased sensation on the left) Laboratory Results Last 24 Hours Test 12/08/16 11:15 12/08/16 15:52 12/08/16 20:14 12/09/16 05:30 Bedside Glucose 165 mg/dl 97 mg/dl 113 mg/dl White Blood Count 5.27 K/uL Red Blood Count 3.91 M/uL Hemoglobin 11.7 g/dL Hematocrit 35.0 % Mean Corpuscular Volume 89.5 fL Mean Corpuscular Hemoglobin 29.9 pg Mean Corpuscular Hemoglobin Concent 33.4 g/dl RDW Standard Deviation 41.3 fL RDW Coefficient of Variation 13.0 % Platelet Count 156 K/uL Mean Platelet Volume 9.5 fL Sodium Level 141 mmol/L Potassium Level 4.0 mmol/L Chloride Level 105 mmol/L Carbon Dioxide Level 27 mmol/L Anion Gap 9.0 mmol/L Blood Urea Nitrogen 19 mg/dl Creatinine 0.96 mg/dl Est Creatinine Clear Calc Drug Dose 125.2 ml/min Estimated GFR () 112.5 Estimated GFR (Non- 97.1 BUN/Creatinine Ratio 19.7 Random Glucose 125 mg/dl Calcium Level 8.5 mg/dl Test 12/09/16 06:17 Bedside Glucose 137 mg/dl Assessment and Plan This is a 41 year old male with PMH of HTN, DM2, hypertriglyceridemia, asthma, tobacco use disorder presents with left sided chest pain Right MCA territory infarct 12/09 complaining that vision blurrier today will obtain Head CT needs PT/OT - needs rehab refusing rehab 12/08 appreciate neurology input continue aspirin, plavix, statin needs tighter blood pressure, sugar, and cholesterol control at home PT/OT refusing rehab - may discharge home with home health in 1-2 days 12/07 appreciate neurology input on this matter patient has been moved out of ICU to PCU will continue aspirin start Plavix continue statin therapy PT/OT should be discharged to rehab - but he is refusing further management as per neurology 2/ patient worsening clinically from yesterday nonverbal today preferential right gaze, left arm neglect day #2 of tPA start aspirin+plavix after protocol speech/PT/OT continue nicardipine drip, trying to maintain blood pressure < 180/100 as per neurology; should not decrease blood pressure too much to avoid ischemia 12/05 Left sided sensory and motor weakness slurred speech s/p tPA neurochecks as per protocol neurological consultation Head CT negative x 2 PT/OT/speech Chest Pain r/o ACS 12/05 s/p cardiac cath mild disease; nonobstructive chest pain not likely cardiac in nature appreciate cardiology input 12/04 Patient presents with left sided chest pain Pain around 5/10 this morning, but improved with SL nitro cardiac enzymes negative x [address] changes, will repeat EKG continue aspirin, b-kirk has had cardiac cath over 5 years prior with some "build-up" as per patient due to risk factors, will consult cardiology for further input Hypertriglyceridemia/Hypercholesterolemia Triglycerides > 600 Cholesterol > 200 will start statin DM2 hold oral agents insulin sliding scale pharmacy glycemic control consult HTN 12/05 nicardipine drip uptitrate to keep blood pressure from > 180/100 as per tpa protocol; can add b-kirk if needed 12/04 blood pressures are stable today elevated on presentation continue amlodipine, EDWARD-I, b-kirk Asthma stable, no exacerbation continue home inhalers GERD cont. PPI Bipolar Disorder continue home medications DVT ppx Lovenox FULL CODE
--- NOTE | 2016-12-09 10:58 | DIAGNOSTIC IMAGING REPORT ---
HEAD CT NONCONTRAST CT DOSE: 712.55 mGy.cm HISTORY: Mental status change worsening vision TECHNIQUE: Multiaxial CT images of the head were performed without the use of intravenous contrast. Comparison: 12/07/2016, 12/06/2016, Findings: The paranasal sinuses and mastoid air cells are clear. The right middle cerebral arterial infarct is similar in terms of size. Its central aspect shows a slowly increasing density component, however which would indicate central component of potential petechial hemorrhage. There is no midline shift or significance. Minimal surrounding soft tissue edematous changes similar. There are no new or interval findings of that noted. Impression: Right middle cerebral arterial territory infarct, unchanged in overall size compared to the [address] exams. 2. Potential slowly developing central focus of microhemorrhage and/or petechial hemorrhage . Electronically signed by: Mukesh Uribe M.D. 12/09/2016 10:57 AM Dictated Date/Time: 12/09/2016 10:53 AM
--- NOTE | 2016-12-09 12:40 | PROGRESS NOTE ---
DATE: 12/09/2016 Gerber apparently began complaining of some diplopia today and he had a CAT scan done which by my interpretation looks no different than the ones that were done previously and I really do not think there is a hemorrhage in the area of infarction but I will wait for the radiology report. He is again little difficult to examine. He has a flat aprosodic effect, is not reality testing in terms of his deficits, wants to go home and then promises if he does not do well there he could go to rehabilitation. I tried to talk him out of it by stating that early rehabilitation is the best and then he might get to go home earlier, rather than having to return later but I do not think he will follow this logic and is pretty insistent about leaving. He I do not believe understands the full magnitude of his left arm and leg deficits and still has an eye deviation to the right, can find his left arm. Acknowledges that there is a paresis but I think he is minimizing the magnitude of it all. On exam ov his visual system, I do not see any extraocular dysmotility but he tells me he has never been able to look to the right or left without turning his head, although on reflex testing, he was certainly able to saccade to the right but not to the left, which would be compatible with a mild hemifield deficit that is difficult to demonstrate by confrontation. I do not see any limitations in upward, or downward gaze. When one talks to him about his diplopia, it sounds as though it only occurred after he was focusing on a relatively near object for a period of 5 minutes, at which point he began to have a double image. I suspect this is a bit of a convergence spasm and has nothing to do with any intracranial problem. Certainly, the infarct might have dissected down close to the thalamus and occasionally patients with thalamic involvement will talk about vague diplopia that does not follow the rules and this may be the case here, but I think the important thing is that the infarct does not look any different. His exam is pretty stable and unfortunately his reality testing in terms of his deficits is not any better. We will keep seeing him on a daily basis, again at some point he is going to need a full coagulation workup. We could probably do this sometime this week. I do not think he needs a full angiogram as upon review of his CTA, I do not really see any evidence that would suggest an intracranial vasculitis or any type of malformation and I hate to put this man through another catheter study for any reason. MTDD
[2016-12-09] MEDS: ENOXAPARIN 40 MG/0.4 ML SYR SC SCH (17:14)
[2016-12-09] MEDS: TRAZODONE HCL 100 MG TAB PO SCH (21:15)
[2016-12-10] VITALS (10 sets, daily range): BP systolic 141–173; BP diastolic 82–111; PULSE 83–120; TEMP 36.6–37.5; O2SAT 92–97
[2016-12-10 05:42] LABS: HEMATOCRIT 36.7 % (42-52); MEAN CELL VOLUME 89.3 fL (80-100); MEAN CORPUSCULAR HEMOGLOBIN 31.1 pg (25-34); MEAN CORPUSCULAR HGB CONC 34.9 g/dl (32-36); MEAN PLATELET VOLUME 9.4 fL (7.4-10.4); PLATELET COUNT 164 K/uL (130-400); RED BLOOD COUNT 4.11 M/uL (4.7-6.1); WHITE BLOOD COUNT 5.02 K/uL (4.8-10.8)
[2016-12-10 06:12] LABS: BUN/CREATININE RATIO 18.4 (10-20); CALCIUM 8.7 mg/dl (8.5-10.1); MAGNESIUM 2.4 mg/dl (1.8-2.4); POTASSIUM 4.5 mmol/L (3.5-5.1)
[2016-12-10] MEDS: METFORMIN HCL 500 MG TABCR PO SCH ×2 (07:30→16:45)
[2016-12-10] MEDS: INSULIN ASPART 100 UNITS/ML 3 ML PEN SC SCH ×4 (08:00→21:00)
[2016-12-10] MEDS: CHECK FENTANYL PATCH PLACEMENT SCH ×2 (08:00→16:44)
[2016-12-10] MEDS: ASPIRIN 81 MG ECTAB PO SCH (08:48)
[2016-12-10] MEDS: ATORVASTATIN 10 MG TAB PO SCH (08:49)
[2016-12-10] MEDS: BUDESONIDE/FORMOTEROL FUMARATE 160/4.5 60 PUFFS/INHALER INH SCH ×2 (08:49→21:19)
[2016-12-10] MEDS: CLOPIDOGREL BISULFATE 75 MG TAB PO SCH (08:49)
[2016-12-10] MEDS: FENOFIBRATE 48 MG TAB PO SCH (08:50)
[2016-12-10] MEDS: GABAPENTIN 400 MG CAP PO SCH ×3 (08:50→21:17)
[2016-12-10] MEDS: DICYCLOMINE HCL 20 MG TAB PO SCH ×4 (08:50→21:18)
[2016-12-10] MEDS: NYSTATIN SUSP 500,000 U/5 ML UDC PO SCH ×4 (08:50→21:17)
[2016-12-10] MEDS: PANTOprazole SOD 40 MG TAB PO SCH (08:50)
[2016-12-10] MEDS: FLUTICASONE PROPIONATE NA SPR 16 GM BTL NAE SCH (08:52)
[2016-12-10] MEDS: OXYCODONE HCL IR 5 MG TAB (IMMEDIATE RELEASE) PO SCH ×4 (08:58→21:16)
[2016-12-10] MEDS: DIAZEPAM 5MG TAB PO SCH ×4 (09:00→21:16)
--- NOTE | 2016-12-10 15:34 | Progress Note ---
Subjective Date of Service: Dec 10, 2016. Subjective Pt evaluation today including: conversation w/ patient, physical exam, lab review, review of studies, review of inpatient medication list Saw/examined the patient in room 231 Continues to have left sided neglect worked with PT today and did well using a cane adamantly refusing rehab Problem List Medical Problems: (1) Left sided chest pain Status: Acute Review of Systems ENT: + problem reported (headache) Respiratory: No shortness of breath Cardiac: No chest pain Abdomen: No diarrhea, No nausea, No pain, No vomiting Neurologic: + balance problems, + weakness (left sided) Medications Current Inpatient Medications Medications (Trade) Dose Ordered Sig/Ney Route Start Time Stop Time Status Last Admin Dose Admin Aspirin (Ecotrin Tab) 81 mg DAILY PO 12/03/16 09:00 01/02/17 08:59 Future hold 12/10/16 08:48 81 MG Budesonide/ Formoterol Fumarate (Symbicort 160/ 4.5 Inh) 2 puffs BID INH 12/03/16 09:00 01/02/17 08:59 12/10/16 08:49 2 PUFFS Dicyclomine HCl (Bentyl Tab) 20 mg QID PO 12/03/16 09:00 01/02/17 08:59 Future hold 12/10/16 12:47 20 MG Fluticasone Propionate (Flonase Nasal [place]) 2 sprays DAILY CAROLEE 12/03/16 09:00 01/02/17 08:59 12/10/16 08:52 2 SPRAYS Gabapentin (Neurontin Cap) 400 mg TID PO 12/03/16 09:00 01/02/17 08:59 Future hold 12/10/16 12:47 400 MG Trazodone HCl (Desyrel Tab) 300 mg HS PO 12/03/16 21:00 01/02/17 20:59 Future hold 12/09/16 21:15 300 MG Docusate Sodium (coLACE CAP) 100 mg TID PRN PO 12/03/16 10:00 01/02/17 09:59 Future hold Al Hydrox/Mg Hydrox/Simethicone (Maalox Max Susp) 15 ml Q4H PRN PO 12/03/16 08:15 01/02/17 08:14 Future hold Magnesium Hydroxide (Milk Of Magnesia Susp) 30 ml Q12H PRN PO 12/03/16 08:15 01/02/17 08:14 Future hold Ondansetron HCl (Zofran Inj) 4 mg Q6H PRN IV 12/03/16 08:15 01/02/17 08:14 Polyethylene (Miralax Powder Packet) 17 gm DAILY PRN PO 12/03/16 08:15 01/02/17 08:14 Future hold Insulin Aspart (novoLOG ASPART) SLIDING SCALE ACHS SC 12/03/16 11:00 01/02/17 10:59 12/08/16 12:43 8 UNITS Glucose (Glucose 40% Gel) 15-30 GRAMS 15 GRAMS... UD PRN PO 12/03/16 09:45 01/02/17 09:44 Glucose (Glucose Chew Tab) 4-8 Tablets 4 Tabl... UD PRN PO 12/03/16 09:45 01/02/17 09:44 Dextrose (Dextrose 50% 50ML Syringe) 25-50ML OF 50% DW IV FOR... UD PRN IV 12/03/16 09:45 01/02/17 09:44 Glucagon (Glucagon Inj) 1 mg UD PRN SQ 12/03/16 09:45 01/02/17 09:44 Miscellaneous Information (Check Fentanyl Patch Placement) 1 ea QS N/A 12/03/16 16:00 01/02/17 15:59 12/10/16 08:00 1 EA Miscellaneous (Iv Fluids Completed) 1 ea PRN PRN N/A 12/03/16 12:00 12/03/17 11:59 Pantoprazole Sodium (Protonix Tab) 40 mg DAILY PO 12/04/16 09:00 01/03/17 08:59 Future hold 12/10/16 08:50 40 MG Atorvastatin Calcium (Lipitor Tab) 10 mg QAM PO 12/05/16 09:00 01/04/17 08:59 Future hold 12/10/16 08:49 10 MG Nitroglycerin (Nitrostat Tab) 0.4 mg Q5M PRN SL 12/05/16 09:15 01/04/17 09:14 Acetaminophen 650 mg 650 mg Q4H PRN PO 12/05/16 09:15 01/04/17 09:14 Future hold 12/06/16 18:21 650 MG Sodium Chloride (Nss 1000ml) 250 ml @ 999 mls/hr Q16M PRN IV 12/05/16 09:06 01/04/17 09:05 Miscellaneous Information (Pharmacist Discharge Med Rec Consult) 1 ea UD PRN N/A 12/05/16 12:45 01/04/17 12:44 Hydralazine HCl (HydrALAZINE INJ) 5 mg Q1H PRN IV. 12/05/16 20:00 01/04/17 19:59 12/06/16 17:54 5 MG Labetalol HCl (Normodyne IV) 5 mg Q1H PRN IV 12/05/16 20:00 01/04/17 19:59 Miscellaneous (Fentanyl Patch Remove & Waste) 1 ea Q3D@2028 N/A 12/05/16 20:29 01/04/17 20:28 Fentanyl (Duragesic Patch) 12 mcg Q3D@2029 TD 12/05/16 20:30 12/19/16 20:29 12/08/16 22:27 12 MCG Lorazepam 0.5 mg 0.5 mg Q4H PRN IV 12/06/16 01:30 01/05/17 01:29 Lorazepam/Syringe (Ativan Inj/ Syringe) 1 ml @ 1 mls/min Q4H PRN IV 12/06/16 03:15 01/05/17 03:14 Fenofibrate (Tricor Tab) 48 mg DAILY PO 12/07/16 09:00 01/06/17 08:59 12/10/16 08:50 48 MG Enoxaparin Sodium (Lovenox Inj) 40 mg Q24H SC 12/06/16 16:00 01/05/17 15:59 12/09/16 17:14 40 MG Oxycodone HCl (Roxicodone Immediate Rel Tab) 15 mg QID PO 12/07/16 13:00 12/21/16 12:59 12/10/16 12:47 15 MG Diazepam (Valium Tab) 5 mg QID PO 12/07/16 13:00 01/06/17 12:59 12/10/16 12:47 5 MG Nystatin (Mycostatin Susp) 5 ml QID PO 12/07/16 13:00 12/14/16 12:59 12/10/16 12:47 5 ML Metformin HCl (Glucophage Extended Rel Tab) 500 mg BIDM PO 12/07/16 16:45 01/06/17 16:44 12/08/16 07:53 500 MG Clopidogrel Bisulfate (plAVix TAB) 75 mg QAM PO 12/08/16 09:00 01/07/17 08:59 12/10/16 08:49 75 MG Ketorolac Tromethamine (Toradol Inj) 30 mg Q6H PRN IV 12/07/16 17:15 12/12/16 17:14 12/08/16 08:03 30 MG Objective Vital Signs Date Time Temp Pulse Resp B/P Pulse Ox O2 Delivery O2 Flow Rate FiO2 12/10/16 12:00 Room Air 12/10/16 11:57 36.8 104 16 150/94 95 Room Air 12/10/16 08:52 36.8 86 20 151/90 95 Room Air 12/10/16 08:00 Room Air 12/10/16 05:30 36.6 83 18 173/91 96 Room Air 12/10/16 04:00 Room Air 12/10/16 00:00 Room Air 12/09/16 23:33 36.7 66 18 125/83 92 Room Air 12/09/16 20:00 Room Air 12/09/16 19:09 37.0 90 18 140/95 93 Room Air 12/09/16 16:00 Room Air Physical Exam General Appearance: no apparent distress Respiratory/Chest: lungs clear, normal breath sounds, no respiratory distress, no accessory muscle use Cardiovascular: regular rate, rhythm, no edema, no murmur Abdomen: normal bowel sounds, non tender, soft Neurologic/Psychiatric: alert, oriented x 3, + facial droop, + motor weakness, + sensory deficit (left sided), + pertinent finding (+anxious/agitated) Laboratory Results Last 24 Hours Test 12/09/16 16:30 12/09/16 20:06 12/10/16 05:27 12/10/16 06:34 Bedside Glucose 130 mg/dl 119 mg/dl 129 mg/dl White Blood Count 5.02 K/uL Red Blood Count 4.11 M/uL Hemoglobin 12.8 g/dL Hematocrit 36.7 % Mean Corpuscular Volume 89.3 fL Mean Corpuscular Hemoglobin 31.1 pg Mean Corpuscular Hemoglobin Concent 34.9 g/dl RDW Standard Deviation 40.9 fL RDW Coefficient of Variation 12.8 % Platelet Count 164 K/uL Mean Platelet Volume 9.4 fL Sodium Level 142 mmol/L Potassium Level 4.5 mmol/L Chloride Level 104 mmol/L Carbon Dioxide Level 28 mmol/L Anion Gap 10.0 mmol/L Blood Urea Nitrogen 18 mg/dl Creatinine 1.00 mg/dl Est Creatinine Clear Calc Drug Dose 120.2 ml/min Estimated GFR () 107.1 Estimated GFR (Non- 92.4 BUN/Creatinine Ratio 18.4 Random Glucose 127 mg/dl Calcium Level 8.7 mg/dl Magnesium Level 2.4 mg/dl Test 12/10/16 10:49 Bedside Glucose 131 mg/dl Assessment and Plan This is a 41 year old male with PMH of HTN, DM2, hypertriglyceridemia, asthma, tobacco use disorder presents with left sided chest pain Right MCA territory infarct 12/[address] performed yesterday Right middle cerebral arterial territory infarct, unchanged in overall size compared to the [address] exams Potential slowly developing central focus of microhemorrhage and/or petechial hemorrhage Patient continues to refuse rehab He is threatening to sign out AMA consulted psych for further input continue PT/OT would appreciate any other neuro recommendations 12/09 complaining that vision blurrier today will obtain Head CT needs PT/OT - needs rehab refusing rehab 12/08 appreciate neurology input continue aspirin, plavix, statin needs tighter blood pressure, sugar, and cholesterol control at home PT/OT refusing rehab - may discharge home with home health in 1-2 days 2 appreciate neurology input on this matter patient has been moved out of ICU to PCU will continue aspirin start Plavix continue statin therapy PT/OT should be discharged to rehab - but he is refusing further management as per neurology 2/ patient worsening clinically from yesterday nonverbal today preferential right gaze, left arm neglect day #2 of tPA start aspirin+plavix after protocol speech/PT/OT continue nicardipine drip, trying to maintain blood pressure < 180/100 as per neurology; should not decrease blood pressure too much to avoid ischemia 2/ Left sided sensory and motor weakness slurred speech s/p tPA neurochecks as per protocol neurological consultation Head CT negative x 2 PT/OT/speech Chest Pain r/o ACS 2/ s/p cardiac cath mild disease; nonobstructive chest pain not likely cardiac in nature appreciate cardiology input 12/04 Patient presents with left sided chest pain Pain around 5/10 this morning, but improved with SL nitro cardiac enzymes negative x [address] changes, will repeat EKG continue aspirin, b-kirk has had cardiac cath over 5 years prior with some "build-up" as per patient due to risk factors, will consult cardiology for further input Hypertriglyceridemia/Hypercholesterolemia Triglycerides > 600 Cholesterol > 200 will start statin DM2 hold oral agents insulin sliding scale pharmacy glycemic control consult HTN 12/05 nicardipine drip uptitrate to keep blood pressure from > 180/100 as per tpa protocol; can add b-kirk if needed 12/04 blood pressures are stable today elevated on presentation continue amlodipine, EDWARD-I, b-kirk Asthma stable, no exacerbation continue home inhalers GERD cont. PPI Bipolar Disorder continue home medications DVT ppx Lovenox FULL CODE
--- NOTE | 2016-12-10 16:12 | Psychiatric Consultation ---
Consultation Identifying Data Patient is a 41 year old male with extensive medical history. He was brought to the ER on 12/03/2016 for severe chest pain. 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 Primary team is recommending rehab but patient is refusing. Consult for depression. Chief Complaint "That is all private". History of Present Illness 41 year old male with a history of bipolar disorder which was noted in his chart. He refused to discuss this diagnosis with me and said that "that is all private." He is currently not receiving any mental health treatment and says that it has been "many years" since he was treated by a psychiatrist. He is currently prescribed Trazodone for sleep and gabapentin for chronic pain and valium 5 mg tid by his PCP. He does endorse depressed mood "depending" but will not elaborate other than mood is depressed when "sitting at home by himself." He denies any thoughts/intention or plan for suicide or to harm anyone else. He does admit that he is quick to anger but denies physical aggression toward others. He says that he has gained "quite a bit of weight" but doesn't know how much or the time frame but says that his clothes are tight. He endorses anxiety but says he "doesn't know" when asked about specific worries. He has had panic attacks in the past and said the last one was 3 years ago when his father . He endorses poor sleep and stays up until at least 1 am and then sleeps until 1 pm. He is annoyed when I asked about nightmares/trauma history and refuses to answer. He said that his ex girlfriend, Abena, helped him get an appointment at [facility] in [facility] which was supposed to be on 12/07/2016. He missed this appointment because he was in the hospital. He reports calling [facility] to reschedule the appointment and that they will send him an appointment in the mail. He refuses to sign a release for us to verify this appointment. On 12/05/2016 nursing staff witnessed patient putting something in his mouth and taking a drink when he was NPO. 2 pills were removed from patient 's mouth and sent to pharmacy and identified as oxycodone IR 5 mg. Patient's family member then told nursing staff that he had taken approximately 8 similar pills earlier that day (exact time frame unclear; nursing notes 12/05 at 1850 and 1900). According to nurses' notes patient became very upset when family was told to take all of his belongings home. When I asked patient about his today he said that he found something on front of his gown and put it in his mouth. He denies misusing his pain medication. Patient denies access to guns. Denies history of suicide attempts. Past Psychiatric History Current OP Treatment: psychiatrist (years ago and can not or will not tell who it was) Past Medical/Surgical History History of Obesity: Yes History of HTN: Yes History of Diabetes: Yes History of Heart Disease: Yes History of Dyslipidemia: Yes History of Concussion/Seizure: No ( ) Problem List: Allergies Allergies: Coded Allergies: Hydrocodone (Verified Allergy, Unknown, hives, itching, 12/03/16) Tramadol (Unverified Allergy, Unknown, VOMITING, 12/03/16) Home Medications Scheduled Amlodipine (Norvasc), 5 MG PO DAILY Aspirin (Aspirin Ec), 81 MG PO DAILY Budesonide/Formoterol Fumarate (Symbicort 160/4.5 Inhaler), 2 PUFFS INH BID Diazepam (Valium), 5 MG PO QID Dicyclomine Hcl (Bentyl), 20 MG PO QID Fentanyl (Fentanyl), 12 MCG TD [id number] Fluticasone Propionate (Nasal) (Flonase Allergy Relief), 2 SPRAYS CAROLEE DAILY Gabapentin (Gabapentin), 400 MG PO TID Glipizide (Glipizide Er), 10 MG PO DAILY Hydrochlorothiazide (Hydrochlorothiazide), 25 MG PO DAILY Lisinopril (Lisinopril), 20 MG PO QPM Metformin Hcl Er (Glucophage Er), 500 MG PO BID Metoprolol Tartrate (Lopressor) (Lopressor), 100 MG PO BID Montelukast Sodium (Singulair), 10 MG PO DAILY Omeprazole (Prilosec), 20 MG PO TID Oxycodone Hcl (Roxicodone), 15 MG PO QID Trazodone Hcl (Trazodone), 300 MG PO HS Scheduled PRN Docusate Sodium (Stool Softener), 100 MG PO TID PRN for Constipation Potassium Ext Rel (Klor-Con), 20 MEQ PO DAILY PRN for WHEN TAKING LASIX Family History Diabetes mellitus FH: cancer FH: lung disease FHx: gallbladder disease FHx: heart disease Hypertension Kidney disease Kidney stones History of HTN: Yes History of Heart Disease: Yes Alcohol Use Alcohol Use In Past 12 Months: No Substance History Substance Use Past 12 Months: Hx of Inhalent Use: No Hx of Organic Substance Use: No Hx of Illegal/Street Drug Use: No Hx of Over the Counter Med Use: No Hx of Prescription Med Use: Yes Personal History Education: other (attended high school, was in special education classes) Children: one son 21 years old; hasn't seen him in the past year Legal History: none (denies) Psychological Trauma History: Other (refused to discuss) Review of Systems Patient refused to participate in full ROS. Has back pain and left sided weakness Examination Vital Signs Vital Signs Past 12 Hours Date Time Temp Pulse Resp B/P Pulse Ox O2 Delivery O2 Flow Rate FiO2 12/10/16 15:51 37.5 97 22 141/82 96 Room Air 12/10/16 12:00 Room Air 12/10/16 11:57 36.8 104 16 150/94 95 Room Air 12/10/16 08:52 36.8 86 20 151/90 95 Room Air 12/10/16 08:00 Room Air 12/10/16 05:30 36.6 83 18 173/91 96 Room Air 12/10/16 04:00 Room Air Laboratory Results Last 24 Hours Test 12/09/16 16:30 12/09/16 20:06 12/10/16 05:27 12/10/16 06:34 Bedside Glucose 130 mg/dl 119 mg/dl 129 mg/dl White Blood Count 5.02 K/uL Red Blood Count 4.11 M/uL Hemoglobin 12.8 g/dL Hematocrit 36.7 % Mean Corpuscular Volume 89.3 fL Mean Corpuscular Hemoglobin 31.1 pg Mean Corpuscular Hemoglobin Concent 34.9 g/dl RDW Standard Deviation 40.9 fL RDW Coefficient of Variation 12.8 % Platelet Count 164 K/uL Mean Platelet Volume 9.4 fL Sodium Level 142 mmol/L Potassium Level 4.5 mmol/L Chloride Level 104 mmol/L Carbon Dioxide Level 28 mmol/L Anion Gap 10.0 mmol/L Blood Urea Nitrogen 18 mg/dl Creatinine 1.00 mg/dl Est Creatinine Clear Calc Drug Dose 120.2 ml/min Estimated GFR () 107.1 Estimated GFR (Non- 92.4 BUN/Creatinine Ratio 18.4 Random Glucose 127 mg/dl Calcium Level 8.7 mg/dl Magnesium Level 2.4 mg/dl Test 12/10/16 10:49 Bedside Glucose 131 mg/dl Mental Examination During interview pt is: alert and oriented, guarded Appearance: appropriately dressed, other (older than stated age) Eye contact is: fair Motor behavior is: other (no movement of left extremites) Speech: normal in rate, rhythm & volume Affect: mood congruent, irritable Mood is: depressed Thought process: goal directed Suicidal thought are: denied Homicidal thoughts are: denied Hallucinations: denies visual Cognition: memory grossly intact, attention grossly intact, language grossly intact Intelligence estimated to be: below average Insight: limited, impaired Judgement: limited, impaired Impression / Recommendations Impression Reviewed with Dr. Sahara Jhaveri: Diagnoses: Bipolar disorder, unspecified by history: suspect opioid use disorder Patient is a 41 year old man who suffered a CVA on 12/05/2016 post cardiac cath. He is refusing recommended rehab hospitalization for his left sided weakness. He endorses depression and has a history of bipolar disorder. He refused to discuss his past psychiatric history and therefore unable to complete a full assessment. He claims that due to depressive symptoms he was in the process of establishing care at [facility] in [place]. He was unwilling to sign a release so that we can verify this and help coordinate care. He did say that his significant other helped arrange appointment with [facility]. Recommend that case management verify this with significant other. He would certainly benefit from going to a rehab facility post CVA but currently he is refusing this recommendation. I urged him to reconsider at which point he did become more agitated. He does not have psychiatric symptoms requiring acute care/inpatient treatment. There is a question as to whether or not he is misusing his pain medications and recommend that primary team communicate this concern to his outpatient providers. He is also prescribed benzodiazepines which are contraindicated with his pain medication. Again this patient was unwilling to cooperate with a full assessment and if refusing our assistance in setting up outpatient treatment.
[2016-12-10] MEDS: ENOXAPARIN 40 MG/0.4 ML SYR SC SCH (16:48)
--- NOTE | 2016-12-10 17:27 | PROGRESS NOTE ---
DATE: 12/10/2016 SUBJECTIVE: Gerber looks the same. He is sitting on the bed, he can move his left shoulder, and he can barely kick out with his left leg. He needs one-on-one supervision as he is still fairly impulsive. While he does not deny that he has a deficit I think his concept regarding its magnitude is disordered and unrealistic and he really seriously thinks he get home and get back to his baseline. Unfortunately, this is all very typical of a right hemispheric infarction involving the parietal lobe and I am not sure there is a whole lot we can do at this point if he insists on going home. He does not have any more diplopia. His extraocular motility exam is normal. I still think this was an element of convergence spasm and it has not recurred. For now then all I would do is put him on aspirin and Plavix and prior to his discharge get a full hypercoagulable workup, although I suspect this too will be negative. We will continue to visit him on a daily basis. MARJORIE
[2016-12-10] MEDS: TRAZODONE HCL 100 MG TAB PO SCH (21:19)
[2016-12-11] MEDS: CHECK FENTANYL PATCH PLACEMENT SCH ×4 (00:26→23:22)
[2016-12-11] MEDS: KETOROLAC TROMETHAMINE 30 MG/ML VIAL IV PRN (06:33)
[2016-12-11 06:54] VITALS: BP 158/90; PULSE 71; TEMP 36.8; O2SAT 93
[2016-12-11] MEDS: METFORMIN HCL 500 MG TABCR PO SCH ×2 (08:30→17:28)
[2016-12-11] MEDS: DIAZEPAM 5MG TAB PO SCH ×4 (08:50→21:23)
[2016-12-11] MEDS: OXYCODONE HCL IR 5 MG TAB (IMMEDIATE RELEASE) PO SCH ×3 (08:50→17:33)
[2016-12-11] MEDS: FENOFIBRATE 48 MG TAB PO SCH (08:51)
[2016-12-11] MEDS: ASPIRIN 81 MG ECTAB PO SCH (08:51)
[2016-12-11] MEDS: ATORVASTATIN 10 MG TAB PO SCH (08:51)
[2016-12-11] MEDS: CLOPIDOGREL BISULFATE 75 MG TAB PO SCH (08:51)
[2016-12-11] MEDS: GABAPENTIN 400 MG CAP PO SCH ×3 (08:51→21:23)
[2016-12-11] MEDS: FLUTICASONE PROPIONATE NA SPR 16 GM BTL NAE SCH (08:52)
[2016-12-11] MEDS: DICYCLOMINE HCL 20 MG TAB PO SCH ×3 (08:52→17:34)
[2016-12-11] MEDS: BUDESONIDE/FORMOTEROL FUMARATE 160/4.5 60 PUFFS/INHALER INH SCH ×2 (08:54→21:18)
[2016-12-11] MEDS: NYSTATIN SUSP 500,000 U/5 ML UDC PO SCH ×4 (08:56→21:18)
[2016-12-11] MEDS: PANTOprazole SOD 40 MG TAB PO SCH (08:58)
[2016-12-11] MEDS: INSULIN ASPART 100 UNITS/ML 3 ML PEN SC SCH ×4 (09:03→21:00)
[2016-12-11 15:06] VITALS: BP 158/77; PULSE 106; TEMP 36.9; O2SAT 95
[2016-12-11 15:59] LABS: HYDROXYETHYLFLURAZEPAM CONF NEGATIVE NG/ML (CUTOFF=50); HYDROXYMIDAZOLAM NEGATIVE NG/ML (CUTOFF=50); HYDROXYTRIAZOLAM CONF NEGATIVE NG/ML (CUTOFF=50); TEMAZEPAM CONF 61 NG/ML (CUTOFF=50)
[2016-12-11 16:27] LABS: METANEPHRINE 76 mcg/24 h (58-203); NORMETANEPHRINE UR 320 mcg/24 h (88-649); TOTAL METANEPHRINE 396 mcg/24 h (182-739)
[2016-12-11] MEDS: ENOXAPARIN 40 MG/0.4 ML SYR SC SCH (17:35)
--- NOTE | 2016-12-11 17:53 | Progress Note ---
Internal Med Progress Note Date of Service: Dec 11, 2016. Provider Documentation: SUBJECTIVE: Patient is alert/awake and is sitting comfortably in the bed. Continues to have persistent left sided weakness. Can speak small sentences. Has been able to walk with the help of a cane.C/O Intermittent headache. Still refusing to go to Acute Rehab facility. OBJECTIVE: Vital Signs-as noted below Examination: General Appearance: Alert/Awake and is in no apparent distress HEENT: Normocephalic, Noticeable facial droop, Ears, Nose & Throat are normal. Respiratory/Chest: lungs clear, normal breath sounds, no respiratory distress, no accessory muscle use Neck: Supple, Central trachea Chest : B/L Clear to auscultation Cardiovascular: regular rate, rhythm, no edema, no murmur Abdomen: normal bowel sounds, non tender, soft Neurologic/Psychiatric: alert, oriented x 3, + facial droop, + motor weakness, + sensory deficit (left sided), +anxious/agitated, Lab data as noted below. ASSESSMENT & PLAN: CT Head (12/10/16) Right middle cerebral arterial territory infarct, unchanged in overall size compared to the [address] exams Potential slowly developing central focus of microhemorrhage and/or petechial hemorrhage Right MCA CVA: Clinically & hemodynamically doing well.S/P tPA.Has Left sided sensory and motor weakness -Patient continues to refuse rehab & is threatening to sign out AMA -Consulted psych for further input and requested evaluation about his mental competency. -Continue PT/OT -Thanks for Neurology input. -Will start Aspirin & Plavix as per Neurology input. -PT/OT & Speech therapy following the patient. Chest Pain r/o ACS: s/p cardiac cath which showed mild disease; nonobstructive -Thanks for Cardiology input. -Started Metoprolol XL 25 mg daily and will titrate upwards as needed. Hypertension: BP has been running high so have started on metoprolol XL 25 mg and will monitor BP closely. -Monitor BP closely. Hypertriglyceridemia/Hypercholesterolemia: Triglycerides > 600 & Cholesterol > 200 -Started Lipitor Diabetes Type II: Holding oral agents -Monitor BS & cover with insulin sliding scale -Pharmacy glycemic control consult Bronchial Asthma: Stable, no exacerbation -Continue home inhalers GERD: Continue PPI Bipolar Disorder: Continue home medications DVT Prophylaxis: Sq Lovenox FULL CODE Disposition: Held a very lengthy meeting with family as well patient with help of case management. Spent close to 2 hours but patient remains very adamant to go home and have home PT. Would like to have input from Psychiatry regarding mental capacity of patient to make a reasonable decision for himself. Will re-evaluate tomorrow. Vital Signs: Date Time Temp Pulse Resp B/P Pulse Ox O2 Delivery O2 Flow Rate FiO2 12/11/16 15:06 36.9 106 16 158/77 95 Room Air 12/11/16 07:50 Room Air 12/11/16 06:54 36.8 71 16 158/90 93 Room Air 12/11/16 00:20 Room Air 12/10/16 22:43 37.0 90 18 171/91 92 Room Air 12/10/16 22:35 36.9 90 21 96 4.0 12/10/16 22:07 90 144/86 12/10/16 20:00 96 Room Air 12/10/16 19:18 36.9 120 21 158/111 97 Room Air Lab Results: Results Past 24 Hours Test 12/10/16 20:00 12/11/16 08:32 12/11/16 16:51 Range/Units Bedside Glucose 131 163 121 70-99 mg/dl
--- NOTE | 2016-12-11 18:58 | Psychiatric Progress Notes ---
Psychiatric Progress Note Date of Service Dec 11, 2016. Notes ID: Patient reviewed with liaison nurse. Initial consult completed on 12/10/16 by ZOHAIB Carlos and Dr. Jhaveri. Patient was somewhat uncooperative with exam but appeared to have decision making capacity. Reconsulted by primary service following additional interactions with family to reclarify. Reviewed neuro consult that patient's minimization of his deficit is part of stroke syndrome. There was some question of patient's baseline given ?cognitive limitations. CC: "My PCP says he'll give me a week" HPI: patient is known to me as a family member of previous patients. I have had multiple interactions with him on/off over the course of the past 9 1/2 years, last contact several years ago but his overall stubbornness and reactivity seem unchanged. He is adamant that he will get a chair lift to go up the 20 stairs to his apartment. He is aware of risk of falls and . He had some difficulty with vision to use his cell phone combined with limited mobility of his hand. He got in an argument with his ex with whom he has always had a volatile relationship and is angry that she is unwilling to pick him up. He is perseverating on getting to [place] for a back surgery consultation and reinforce with patient that he is not a surgical candidate post stroke. ROS: notes improved feeling in hand, denies SMALL/GI symptoms, denies psych symptoms MSE: alert, left sided deficit as described by neuro, denies SI/HI/graham/del. Thoughts concrete but organized. Affect blunted. Recognized me and described past treatment of his step children from >5 years ago Imp: remote history of bipolar diagnosis Plan: patient is without delirium, dementia or active psychosis that would impair his medical decision making. Again reviewed reasons why he should go to physical rehab, he is only agreeable to home health/PT and states that he will set up own appt for [facility] treatment as he has been involved there for years in the care of his step children. He clarified that no legal POA, he did complete hospital papers to allow son and step son as surrogate decision makers in case of emergency per his report.
[2016-12-11] MEDS: FENTANYL 12 MCG/HR TDSY TD SCH (21:22)
[2016-12-11] MEDS: DICYCLOMINE HCL 10 MG CAP PO SCH (21:23)
[2016-12-11] MEDS: TRAZODONE HCL 100 MG TAB PO SCH (21:23)
[2016-12-11] MEDS: FENTANYL PATCH REMOVE & WASTE SCH (21:30)
--- NOTE | 2016-12-11 23:11 | PROGRESS NOTE ---
DATE: 12/11/2016 Gerber has been moved up to the third floor. He is one-on-one ____ at a distance. He is irritable. He does not like being this closely observed. He is able to move his leg much more effectively than yesterday, but we are not sure he can bear weight safely and the arm still has movement at the shoulder. He seems aware of the paralysis. I am not sure he is aware of the severity of it and he really has insisted on going home. Dr. Arredondo had recommended a coagulation profile to be done prior to discharge. I certainly would suggest his primary care physician that we do the usual protein S, protein C, antithrombin III, prothrombin gene mutation MTHFR mutation, factor V Leiden, and the antiphospholipid antibody titers. I will invite them to put the orders in when convenit and we can follow up on these later. For now, however, I am not recommending anything more other than an 81 mg aspirin and I will check with him again tomorrow. MTDD
[2016-12-12 01:36] VITALS: BP 126/86; PULSE 102; TEMP 36.8; O2SAT 93
[2016-12-12] MEDS: CHECK FENTANYL PATCH PLACEMENT SCH ×2 (08:00→16:02)
[2016-12-12] MEDS ORDERED: DOCUSATE SODIUM 100 MG CAP PO SCH (09:00)
[2016-12-12] MEDS ORDERED: METOPROLOL SUCC 25MG EXT REL TAB PO SCH (09:00)
[2016-12-12] MEDS: OXYCODONE HCL IR 5 MG TAB (IMMEDIATE RELEASE) PO SCH ×2 (09:03→13:11)
[2016-12-12] MEDS: DIAZEPAM 5MG TAB PO SCH ×2 (09:03→13:11)
[2016-12-12] MEDS: GABAPENTIN 400 MG CAP PO SCH ×2 (09:04→13:12)
[2016-12-12 09:05] VITALS: BP 164/93; PULSE 106; TEMP 36.9; O2SAT 96
[2016-12-12] MEDS: NYSTATIN SUSP 500,000 U/5 ML UDC PO SCH ×2 (09:05→13:12)
[2016-12-12] MEDS: BUDESONIDE/FORMOTEROL FUMARATE 160/4.5 60 PUFFS/INHALER INH SCH (09:05)
[2016-12-12] MEDS: FLUTICASONE PROPIONATE NA SPR 16 GM BTL NAE SCH (09:05)
[2016-12-12] MEDS: DICYCLOMINE HCL 10 MG CAP PO SCH ×2 (09:05→13:12)
[2016-12-12] MEDS: PANTOprazole SOD 40 MG TAB PO SCH (09:05)
[2016-12-12] MEDS: CLOPIDOGREL BISULFATE 75 MG TAB PO SCH (09:06)
[2016-12-12] MEDS: ASPIRIN 81 MG ECTAB PO SCH (09:06)
[2016-12-12] MEDS: ATORVASTATIN 10 MG TAB PO SCH (09:06)
[2016-12-12] MEDS: FENOFIBRATE 48 MG TAB PO SCH (09:07)
[2016-12-12] MEDS: INSULIN ASPART 100 UNITS/ML 3 ML PEN SC SCH ×2 (09:21→12:00)
--- NOTE | 2016-12-12 11:33 | Progress Note ---
Internal Med Progress Note Date of Service: Dec 12, 2016. Provider Documentation: SUBJECTIVE: Patient is alert/awake and is sitting comfortably in the bed. Continues to have persistent left sided weakness. Can speak small sentences. Has been able to walk with the help of a cane.C/O Intermittent headache.No nausea/vomiting. Still refusing to go to Acute Rehab facility. OBJECTIVE: Vital Signs-as noted below Examination: General Appearance: Alert/Awake and is in no apparent distress HEENT: Normocephalic, Noticeable facial droop, Ears, Nose & Throat are normal. Respiratory/Chest: lungs clear, normal breath sounds, no respiratory distress, no accessory muscle use Neck: Supple, Central trachea Chest : B/L Clear to auscultation Cardiovascular: regular rate, rhythm, no edema, no murmur Abdomen: normal bowel sounds, non tender, soft Neurologic/Psychiatric: alert, oriented x 3, + facial droop, + motor weakness, + sensory deficit (left sided), +anxious/agitated, Lab data as noted below. ASSESSMENT & PLAN: CT Head (12/10/16) Right middle cerebral arterial territory infarct, unchanged in overall size compared to the [address] exams Potential slowly developing central focus of microhemorrhage and/or petechial hemorrhage Right MCA CVA: Clinically & hemodynamically doing well.S/P tPA.Has Left sided sensory and motor weakness -Patient continues to refuse rehab & is threatening to sign out AMA -Consulted psych for further input and requested evaluation about his mental competency. -Continue PT/OT -Thanks for Neurology input. -Will start Aspirin & Plavix as per Neurology input. -PT/OT & Speech therapy following the patient. Chest Pain r/o ACS: s/p cardiac cath which showed mild disease; nonobstructive -Thanks for Cardiology input. -Started Metoprolol XL 25 mg daily and will titrate upwards as needed. Hypertension: BP has been running high so have started on metoprolol XL 25 mg and will monitor BP closely. -Monitor BP closely. Hypertriglyceridemia/Hypercholesterolemia: Triglycerides > 600 & Cholesterol > 200 -Started Lipitor Diabetes Type II: Holding oral agents -Monitor BS & cover with insulin sliding scale -Pharmacy glycemic control consult Bronchial Asthma: Stable, no exacerbation -Continue home inhalers GERD: Continue PPI Bipolar Disorder: Continue home medications DVT Prophylaxis: Sq Lovenox FULL CODE Disposition: Held a very lengthy meeting with family as well patient with help of case management. Spent close to 2 hours but patient remains very adamant to go home and have home PT. Would like to have input from Psychiatry regarding mental capacity of patient to make a reasonable decision for himself. I have counselled the patient in detail again regarding his medical & physical condition in detail as well his limitations but he just does not seem to listen too much. Again advised him to consider going to a Rehab facility bit he flatly refuses to do so with explanation that his PCP has told him that if he is not better in one week, he will place him in Rehab. Psychiatry has cleared him that he has mental capacity to make a decision for himself. So, unfortunately it seems that patient is not making a reasonable decision but have to respect his wishes. I have tried my best and spent a lot of time to explain as well convince him with help of Laura but he just is not open to the option of going to Rehab. Will give him a cane and shower chair as well do my best to arrange for Home Health Services to help him the best we can. Advised him many times to stay in touch with his PCP. Seems he understands and wants to go home. Vital Signs: Date Time Temp Pulse Resp B/P Pulse Ox O2 Delivery O2 Flow Rate FiO2 12/12/16 09:05 36.9 106 19 164/93 96 Room Air 12/12/16 01:36 36.8 102 16 126/86 93 Room Air 12/11/16 19:25 Room Air 12/11/16 15:06 36.9 106 16 158/77 95 Room Air Lab Results: Results Past 24 Hours Test 12/11/16 16:51 12/11/16 21:21 12/12/16 04:44 12/12/16 09:12 Range/Units Bedside Glucose 121 129 171 70-99 mg/dl
[2016-12-12] MEDS ORDERED: TRC48 PO ×2 (14:30)
[2016-12-12] MEDS ORDERED: ATOR-22 PO ×2 (14:30)
[2016-12-12] MEDS ORDERED: TPRSR25 PO ×2 (14:30)
[2016-12-12] MEDS ORDERED: BNT10 PO ×2 (14:30)
[2016-12-12] MEDS ORDERED: NYSS5 PO ×2 (14:30)
[2016-12-12] MEDS ORDERED: PRT40 PO ×2 (14:30)
[2016-12-12] MEDS ORDERED: PLV75 PO ×2 (14:30)
--- NOTE | 2016-12-12 14:33 | Discharge Instructions ---
Discharge Instructions Admission Reason for Admission: Left Sided Chest Pain Discharge Discharge Diagnosis / Problem: Acute CVA Discharge Goals Goal(s): Decrease discomfort, Improve function, Increase independence, Improve disease control, Improve nutritional status, Learn about illness, Diagnostic testing, Therapeutic intervention Activity Recommendations Activity Limitations: per Instructions/Follow-up section Lifting Limitations: until after follow-up appointment Exercise/Sports Limitations: gradually increase as tolerated (Under supervision and following fall precautions.) Shower/Bathe: no limitations (Following fall precautions) Driving or Machine Use: NO driving . Instructions / Follow-Up Instructions / Follow-Up Follow up with PCP in 3-5 days. Follow up for Outpatient Rehab for PT/OT. Please discus with your PCP regarding blood pressure management and if needed, medications may be added and/or dose can be titrated. Risk Factors for Stroke: You can reduce your chances of stroke by working with your medical provider to adopt a healthy lifestyle. Some specific ways to lower your chance of stroke are: * If you are a smoker, now is the time to stop smoking cigarettes * If you are diabetic, improve the control of your blood sugars * Avoid excessive amounts of alcohol * Control high blood pressure * Lose weight if you are overweight * Be sure to lead an active lifestyle * Eat a healthy diet low in salt, cholesterol and fat You should know about other risk factors for stroke that you are unable to control. These include: * Age 55 years or older * Male gender * Certain racial groups: , or / * Family History of Stroke, Mini stroke or Heart Attack * Sickle Cell Disease Follow Up: It is important for you to keep your follow up appointments with your medical provider. Current Hospital Diet Patient's current hospital diet: AHA Diet (Heart Healthy), Diabetes Type 2 Diet Discharge Diet Recommended Diet: AHA Diet (Heart Healthy), Diabetes Type 2 Diet Pending Studies Studies pending at discharge: no Laboratory Results Hemoglobin A1c Test 12/05/16 10:50 Range/Units Estimated Average Glucose 192 mg/dl Hemoglobin A1c 8.3 H 4.5-5.6 % Lipid Panel Test 12/06/16 11:14 Range/Units Triglycerides Level 570 H 0-150 mg/dl Cholesterol Level 229 H 0-200 mg/dl HDL Cholesterol 34 mg/dl Cholesterol/HDL Ratio 6.7 LDL Cholesterol, Calculated mg/dl Medical Emergencies . Who to Call and When: Medical Emergencies: Call 911 immediately if you experience any of the following warning signs and symptoms of Stroke: * Sudden numbness or weakness of the face, arm or leg, especially on one side of the body * Sudden confusion, trouble speaking or understanding * Sudden trouble seeing in one or both eyes * Sudden trouble walking, dizziness, loss of balance or coordination * Sudden severe headache with no cause Do not delay calling 911 if you experience any warning signs or symptoms of a stroke. Delay in seeking medical attention may affect what treatments can be given to you. . Non-Emergent Contact Non-Emergency issues call your: Primary Care Provider . . "Provider Documentation" section prepared by Raffy Garcia. Stroke Core Measures Reason no t-PA for Stroke: Treatment provided - N/A Reason no antithrom by day 2: Treatment provided - N/A Reason no antithrom at D/C: Treatment provided - N/A Reason no statin at D/C: Treatment provided - N/A Reason no anticoag w/a fib: Treatment not indicated VTE Core Measure Inpt VTE Proph given/why not?: Enoxaparin (Lovenox)SQ
--- NOTE | 2016-12-12 14:40 | Discharge Summary ---
Discharge Summary Admission Date: Dec 03, 2016 at 10:17 Discharge Date: Dec 12, 2016 Discharge Disposition: Home with services Principal Diagnosis: Acute CVA Chest Pain (Resolved) Secondary Diagnoses/Problems: Hypertension Hypercholesterolemia Diabetes Type II Hypertriglyceridemia GERD Bronchial Asthma Procedures: Cardiac cath Preliminary Findings Right dominant coronary anatomy Mild to moderate diffuse atherosclerotic luminal irregularities Normal LV function MRI OF THE BRAIN WITHOUT CONTRAST FINDINGS: Sagittal T1, axial diffusion, proton density and T2 weighted axial, coronal FLAIR, and axial T1-weighted images were acquired. No intra or extra-axial mass lesions are visualized There is a moderate focus of restricted water diffusion in the right middle cerebral artery territory measuring 4.5 cm in diameter. This involves the insular cortex, portions the right posterior frontal lobe, and portions of the right anterior parietal lobe. There is no evidence of ventricular dilatation. Proton density T2-weighted and FLAIR images reveal there is subtle increased T2 signal in the region of the acute right MCA distribution infarct. There are small foci of increased T2 signal within the left frontal and parietal white matter likely on a small vessel basis, There are no abnormal flow voids. IMPRESSION: Moderate sized acute right middle cerebral artery territory infarct. CT NECK ANGIO WITH CONTRAST CLINICAL HISTORY: Stroke. Status post TPA. TECHNIQUE: CT angiography was performed from the aortic arch to the skull base. MIP imaging was performed. The patient was scanned in a dynamic helical fashion during intravenous administration of 117 cc of Optiray 320. CT DOSE: 644.60 mGy.cm Technique: CT angiogram of the carotid and vertebral arteries was obtained using intravenous contrast and 3-D reconstruction. NASCET criteria was utilized. Findings: The right carotid revealed no evidence of aneurysm and no evidence of dissection. There is no evidence of hemodynamic significant stenosis. The left carotid revealed no evidence of hemodynamic significant stenosis. There is no evidence of aneurysm. There is no evidence of dissection. There is a dominant left vertebral artery. There is no evidence of vertebral artery stenosis or dissection. IMPRESSION: No evidence of hemodynamically significant carotid or vertebral artery stenosis. No evidence of dissection. HEAD CT NONCONTRAST Comparison: 12/07/2016, 12/06/2016, Findings: The paranasal sinuses and mastoid air cells are clear. The right middle cerebral arterial infarct is similar in terms of size. Its central aspect shows a slowly increasing density component, however which would indicate central component of potential petechial hemorrhage. There is no midline shift or significance. Minimal surrounding soft tissue edematous changes similar. There are no new or interval findings of that noted. Impression: Right middle cerebral arterial territory infarct, unchanged in overall size compared to the [address] exams[address] 2. Potential slowly developing central focus of microhemorrhage and/or petechial hemorrhage . Vaccinations: NONE Consultations: Cardiology Neurology Physical Therapy Occupational Therapy Pending Studies/Follow-Up: Needs Outpatient PT/OT as patient refused to go to Inpatient Rehab Monitor Lipid Profile and LFT in 4-6 weeks. Medication Reconciliation New Medications: Atorvastatin (Lipitor) 20 Mg Tab 20 MG PO DAILY for 90 Days, #90 TAB Clopidogrel Bisulfate (Clopidogrel) 75 Mg Tab 75 MG PO QAM, #90 TAB Dicyclomine HCl (Dicyclomine HCl) 10 Mg Cap 10 MG PO QID, #120 CAP 1 Refill Fenofibrate (Fenofibrate) 48 Mg Tab 48 MG PO DAILY, #90 TAB Metoprolol Succinate (Metoprolol Succinate ER) 25 Mg Tabcr 25 MG PO QAM, #30 Nystatin (Nystatin) 5 Ml Susp 5 ML PO QID for 30 Days Pantoprazole (Pantoprazole Sodium) 40 Mg Tab 40 MG PO DAILY, #30 TAB Continued Medications: Amlodipine (Norvasc) 5 Mg Tab 5 MG PO DAILY Aspirin (Aspirin Ec) 81 Mg Tab 81 MG PO DAILY Budesonide/Formoterol Fumarate (Symbicort 160/4.5 Inhaler) 120 Puffs/ Aero 2 PUFFS INH BID Diazepam (Valium) 5 Mg Tab 5 MG PO QID Docusate Sodium (Stool Softener) 100 Mg Tab 100 MG PO TID PRN for Constipation Fentanyl (Fentanyl) 12 Mcg Tdsy 12 MCG TD CQ72HR Fluticasone Propionate (Nasal) (Flonase Allergy Relief) 50 Mcg/Act Spr 2 SPRAYS CAROLEE DAILY Gabapentin (Gabapentin) 400 Mg Cap 400 MG PO TID for 10 Days, #30 CAP Glipizide (Glipizide Er) 10 Mg Tab 10 MG PO DAILY, 3 Refills Hydrochlorothiazide (Hydrochlorothiazide) 25 Mg Tab 25 MG PO DAILY for 30 Days, #30 TAB Metformin Hcl Er (Glucophage Er) 500 Mg Tab 500 MG PO BID Montelukast Sodium (Singulair) 10 Mg Tab 10 MG PO DAILY Omeprazole (Prilosec) 20 Mg Capcr 20 MG PO TID, 0 Refills Oxycodone Hcl (Roxicodone) 15 Mg Tab 15 MG PO QID for 7 Days, #28 Potassium Ext Rel (Klor-Con) 20 Meq Tabcr 20 MEQ PO DAILY PRN for WHEN TAKING LASIX Trazodone Hcl (Trazodone) 100 Mg Tab 300 MG PO HS Discontinued Medications: Dicyclomine Hcl (Bentyl) 20 Mg Tab 20 MG PO QID Lisinopril (Lisinopril) 20 Mg Tab 20 MG PO QPM for 30 Days, #30 TAB Metoprolol Tartrate (Lopressor) (Lopressor) 100 Mg Tab 100 MG PO BID Admission Information HPI (per Admitting provider): 41 year old male with known past medical history of Hypertension, Diabetes, Asthma, GERD, Anxiety disorder, History JOSE, History of Bipolar presents to the ER with chief complaint of constant sharp chest pain beginning 3 hours ago around 11.00 PM last night. 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 He tells that his chest pain started while he was watching TV and it feels similar to the pain that he had 1 month ago. He reports that his chest pain is resolving slightly now. The patient denies any abdominal pain, leg swelling, calf pain, back pain, and cocaine usage. He notes that he has not taken his blood pressure medication tonight. Physical Exam (per Admitting): General Appearance: WD/WN, no apparent distress Head: normocephalic, atraumatic Eyes: normal inspection, PERRL, EOMI, sclerae normal ENT: normal ENT inspection, hearing grossly normal, TMs normal, pharynx normal Neck: supple, no adenopathy, thyroid normal, no JVD, no carotid bruits, trachea midline Respiratory/Chest: chest non-tender, lungs clear, normal breath sounds, no respiratory distress, no accessory muscle use Cardiovascular: regular rate, rhythm, no edema, no gallop, no JVD, no murmur , normal peripheral pulses Abdomen/GI: normal bowel sounds, non tender, soft, no organomegaly Genitourinary - Male: normal male genitalia Back: normal inspection, no CVA tenderness, no muscle spasm, normal range of motion Extremities/Musculoskelatal: normal inspection, no calf tenderness Neurologic/Psych: alert, normal mood/affect, normal reflexes, oriented x 3 Skin: normal color, warm/dry, no rash Lymphatic: no adenopathy Hospital Course CT Head (12/10/16) Right middle cerebral arterial territory infarct, unchanged in overall size compared to the [address] exams Potential slowly developing central focus of microhemorrhage and/or petechial hemorrhage Right MCA CVA: Clinically & hemodynamically doing well.S/P tPA.Has Left sided sensory and motor weakness -Patient continues to refuse rehab & is threatening to sign out AMA -Consulted psych for further input and requested evaluation about his mental competency. -Continue PT/OT -Thanks for Neurology input. -Will start Aspirin & Plavix as per Neurology input. -PT/OT & Speech therapy following the patient. Chest Pain r/o ACS: s/p cardiac cath which showed mild disease; nonobstructive -Thanks for Cardiology input. -Started Metoprolol XL 25 mg daily and will titrate upwards as needed. Hypertension: BP has been running high so have started on metoprolol XL 25 mg and will monitor BP closely. -Monitor BP closely. Hypertriglyceridemia/Hypercholesterolemia: Triglycerides > 600 & Cholesterol > 200 -Started Lipitor Diabetes Type II: Holding oral agents -Monitor BS & cover with insulin sliding scale -Pharmacy glycemic control consult Bronchial Asthma: Stable, no exacerbation -Continue home inhalers GERD: Continue PPI Bipolar Disorder: Continue home medications DVT Prophylaxis: Sq Lovenox FULL CODE Disposition: Held a very lengthy meeting with family as well patient with help of case management. Spent close to 2 hours but patient remains very adamant to go home and have home PT. Would like to have input from Psychiatry regarding mental capacity of patient to make a reasonable decision for himself. I have counselled the patient in detail again regarding his medical & physical condition in detail as well his limitations but he just does not seem to listen too much. Again advised him to consider going to a Rehab facility bit he flatly refuses to do so with explanation that his PCP has told him that if he is not better in one week, he will place him in Rehab. Psychiatry has cleared him that he has mental capacity to make a decision for himself. So, unfortunately it seems that patient is not making a reasonable decision but have to respect his wishes. I have tried my best and spent a lot of time to explain as well convince him with help of Laura but he just is not open to the option of going to Rehab. Will give him a cane and shower chair as well do my best to arrange for Home Health Services to help him the best we can. Advised him many times to stay in touch with his PCP. Seems he understands and wants to go home. Total time spent on discharge = 45 minutes. This includes examination of the patient, discharge planning, medication reconciliation, and communication with other providers. Discharge Instructions Discharge Goals Goal(s): Decrease discomfort, Improve function, Increase independence, Improve disease control, Improve nutritional status, Learn about illness, Diagnostic testing, Therapeutic intervention Activity Recommendations Activity Limitations: per Instructions/Follow-up section Lifting Limitations: until after follow-up appointment Exercise/Sports Limitations: gradually increase as tolerated (Under supervision and following fall precautions.) Shower/Bathe: no limitations (Following fall precautions) Driving or Machine Use: NO driving . Instructions / Follow-Up Instructions / Follow-Up Follow up with PCP in 3-5 days. Follow up for Outpatient Rehab for PT/OT. Please discus with your PCP regarding blood pressure management and if needed, medications may be added and/or dose can be titrated. Additional Copies To Jaxson Eldridge PA-C
[2016-12-12 15:17] VITALS: BP 164/93; PULSE 106; TEMP 36.9; O2SAT 96
[2016-12-12] MEDS ORDERED: OXYC15TA49 PO ×2 (15:35)
[2016-12-12] MEDS: ENOXAPARIN 40 MG/0.4 ML SYR SC SCH (16:00)
--- NOTE | 2016-12-12 16:01 | Pharmacy Progress Note ---
Pharmacist Stroke Counseling Date of Service Dec 12, 2016. Scope Pharmacy has been consulted to provide medication discharge counseling for this patient admitted with ischemic stroke/hemorrhagic stroke/ transient ischemic attack as per the Pharmacist Discharge Counseling for Stroke Patients Protocol. Medications on Discharge New Medications: Atorvastatin (Lipitor) 20 Mg Tab 20 MG PO DAILY for 90 Days, #90 TAB Clopidogrel Bisulfate (Clopidogrel) 75 Mg Tab 75 MG PO QAM, #90 TAB Dicyclomine HCl (Dicyclomine HCl) 10 Mg Cap 10 MG PO QID, #120 CAP 1 Refill Fenofibrate (Fenofibrate) 48 Mg Tab 48 MG PO DAILY, #90 TAB Metoprolol Succinate (Metoprolol Succinate ER) 25 Mg Tabcr 25 MG PO QAM, #30 Nystatin (Nystatin) 5 Ml Susp 5 ML PO QID for 30 Days Pantoprazole (Pantoprazole Sodium) 40 Mg Tab 40 MG PO DAILY, #30 TAB Continued Medications: Amlodipine (Norvasc) 5 Mg Tab 5 MG PO DAILY Aspirin (Aspirin Ec) 81 Mg Tab 81 MG PO DAILY Budesonide/Formoterol Fumarate (Symbicort 160/4.5 Inhaler) 120 Puffs/ Aero 2 PUFFS INH BID Diazepam (Valium) 5 Mg Tab 5 MG PO QID Docusate Sodium (Stool Softener) 100 Mg Tab 100 MG PO TID PRN for Constipation Fentanyl (Fentanyl) 12 Mcg Tdsy 12 MCG TD CQ72HR Fluticasone Propionate (Nasal) (Flonase Allergy Relief) 50 Mcg/Act Spr 2 SPRAYS CAROLEE DAILY Gabapentin (Gabapentin) 400 Mg Cap 400 MG PO TID for 10 Days, #30 CAP Glipizide (Glipizide Er) 10 Mg Tab 10 MG PO DAILY, 3 Refills Hydrochlorothiazide (Hydrochlorothiazide) 25 Mg Tab 25 MG PO DAILY for 30 Days, #30 TAB Metformin Hcl Er (Glucophage Er) 500 Mg Tab 500 MG PO BID Montelukast Sodium (Singulair) 10 Mg Tab 10 MG PO DAILY Oxycodone Hcl (Roxicodone) 15 Mg Tab 15 MG PO QID, #10 (This prescription has been renewed) Potassium Ext Rel (Klor-Con) 20 Meq Tabcr 20 MEQ PO DAILY PRN for WHEN TAKING LASIX Trazodone Hcl (Trazodone) 100 Mg Tab 300 MG PO HS Discontinued Medications: Dicyclomine Hcl (Bentyl) 20 Mg Tab 20 MG PO QID Lisinopril (Lisinopril) 20 Mg Tab 20 MG PO QPM for 30 Days, #30 TAB Metoprolol Tartrate (Lopressor) (Lopressor) 100 Mg Tab 100 MG PO BID Action The above medications, specifically ones for stroke treatment/prophylaxis, have been reviewed in detail with the patient and/or patient sales representative education courses(s) prior to discharge. This includes indication, common adverse reactions, drug interactions, and medication administration. Medication counseling has been employed using the teach-back method to ensure understanding. Outcome The patient and/or patient sales representative education courses(s) have NOT demonstrated full understanding of the medications. Please note, they are aware that the pharmacist will call them within 72 hours post-discharge to confirm that the appropriate medications are being taken and answer any further medication related questions the patient might have at that time. Contact information Individual to be contacted: Gerber Ryan Relationship to patient (if applicable): Self (patient) Phone number: [phone] Best time to call: After 12-1 PM Additional comments: - Met with patient prior to discharge today. He is not safe to go home, but is adamantly refusing rehab. He wants to go home with home health. He was requesting a "chair lift for stairs" for his apartment; states that if he got a prescription, his landlord will build one at no cost. He was also very focused on the fact that he missed his pain management appointment due to his hospitalization and could not reschedule until 3 weeks later. States he only has "2 tablets" of oxycodone left; he wanted Hospitalist to prescribe a "few" tablets so he could make it stretch for 3 weeks. - Patient did not seem to comprehend education given today. Tried to explain in the simplest and briefest terms the major important points. Patient was unable to explain/repeat information given. He was unable to engage in conversation (i.e. no eye contact). - Medication error was prevented: Patient's original discharge order had both Prilosec and Protonix (duplicate PPI's). Spoke with Dr. Garcia; clarified that Prilosec should be discontinued. Discharge medication list updated appropriately. - Explained to patient the reason why Prilosec was changed to Protonix ( Prilosec interacts with Plavix; it inhibits [id number] metabolism of Plavix, which may decr' Plavix effectiveness and incr' patient risk for stroke). Patient states he was on Protonix in the past and did not want to take it because it was not effective for his symptoms. After explaining the interaction, patient states, he would take it 3-4x/day then... tried to tell patient that this would not be safe, but patient did not want to listen. - Patient says he will depend on home health to fill his pillbox. - Relayed above information to nursing, who will follow-up with provider/Case Management. Thank you for allowing pharmacy to be involved in the care of this patient. Please call [phone] or [phone] with any additional questions
--- NOTE | 2016-12-12 16:58 | PROGRESS NOTE ---
DATE: 12/12/2016 DATE: 12/12/2016. Gerber is on his way out the door with his family. I talked to him briefly today. Reviewing the chart, it looks as though Dr. Arredondo did order full coagulation workup back on the and hopefully this will not be colored by the effects of his TPA. We will need to see him at some point in the future, probably 6-8 weeks, review how he is doing and go over the results of the hypercoagulability, but there is no real urgency in him being seen by neurology immediately after discharge. I do not how know how well he is going to do at home. He thinks he has an outpatient rehabilitation facility set up and perhaps this will be adequate for his purposes. He certainly is determined, although a little bit unrealistic at this point.
[2016-12-14 11:22] LABS: ANTITHROMBINIII ACTIVITY** 117 % activity (80-120); B2 GLYCOPROTEIN IGA <9 SAU (<=20); B2 GLYCOPROTEIN IGG <9 SGU (<=20); B2 GLYCOPROTEIN IGM 18 SMU (<=20); LUPUS ANTICOAGULANT** TC36573X Negative (Negative); PROTEIN C ACTIVITY** TC 1777X 179 % (70-180); PROTEIN S ACT(FUNCT)**1779X 112 % (70-150)
--- NOTE | 2016-12-14 14:28 | Pharmacy Progress Note ---
Pharmacist Post D/C Phone Note Date of phone call: Dec 14, 2016. The patient and/or patient outside sales representative insurance(s) were unable to be reached for a follow-up phone call within the 72 hour time frame. A message with call-back number was left on the voicemail. Discharge counseling pharmacist contact information has already been provided to the patient should questions arise. Thank you for allowing us to be involved in the care of this patient.
[2016-12-27] MEDS ORDERED: OXYC15TA49 PO (14:28)
[2016-12-27] MEDS ORDERED: DIAZ-165 PO (14:28)
[2016-12-27] MEDS ORDERED: CPR500 PO (14:32)
[2017-03-21] MEDS ORDERED: HYDR25TA5 PO (15:49)
[2017-03-21] MEDS ORDERED: PANT40TA PO (15:49)
[2017-03-21] MEDS ORDERED: TPRSR25 PO (15:49)
[2017-03-21] MEDS ORDERED: NYSS/ PO (15:49)
[2017-03-21] MEDS ORDERED: ATOR-22 PO (15:49)
[2017-05-23] MEDS ORDERED: ATOR-22 PO (13:22)
[2017-06-25] MEDS ORDERED: FLUT0.15 NAE ×2 (03:53)
[2017-06-25] MEDS ORDERED: FENO48TA9 PO (15:49)
[2017-06-25] MEDS ORDERED: CLOP1TAB15 PO (15:49)
[2017-06-25] MEDS ORDERED: GABA1CAP5 PO (15:49)
[2017-06-25] MEDS ORDERED: METF500T PO (15:57)
[2017-06-25] MEDS ORDERED: MONT1TAB3 PO ×2 (16:15)
[2017-06-25] MEDS ORDERED: QUET1TAB34 PO (18:50)
[2017-07-26] MEDS ORDERED: ASPI81TA28 PO ×2 (03:53)
[2017-07-26] MEDS ORDERED: DOCU100T7 PO ×2 (20:42)
[2017-07-26] MEDS ORDERED: SYMIN160 INH ×2 (22:40)
== END 2016-12-12 16:22 | disposition home health service (06) | DRG 287 ==
LOC: ENRESERVTM → ENRESERVDT → EDBD 02:16 → C.EDB 02:17 → C.MED 08:10 → INTOOBSV 08:10 → OBSVTOIN 10:17 → C.MSICU 12-05 09:49 → C.2T 12-07 13:07 → EDBEDREQ 12-10 17:06 → C.3E 12-10 22:42
PROVIDERS: ADMIT Emergency Medicine; ATTEND Emergency Medicine
PROC: B2111ZZ Fluoroscopy of Multiple Coronary Arteries using Low Osmolar Contrast (ICD-10-PCS; 2016-12-05)
PROC: B2151ZZ Fluoroscopy of Left Heart using Low Osmolar Contrast (ICD-10-PCS; 2016-12-05)
PROC: 3E03317 Introduction of Other Thrombolytic into Peripheral Vein, Percutaneous Approach (ICD-10-PCS; 2016-12-05)
PROC: 4A023N7 Measurement of Cardiac Sampling and Pressure, Left Heart, Percutaneous Approach (ICD-10-PCS; principal; 2016-12-05 08:17)
DX: I25.10 Atherosclerotic heart disease of native coronary artery without angina pectoris (principal); G81.94 Hemiplegia, unspecified affecting left nondominant side; I97.820 Postprocedural cerebrovascular infarction following cardiac surgery; I10 Essential (primary) hypertension; K21.9 Gastro-esophageal reflux disease without esophagitis; J45.909 Unspecified asthma, uncomplicated; E78.1 Pure hyperglyceridemia; F31.9 Bipolar disorder, unspecified; G47.33 Obstructive sleep apnea (adult) (pediatric); E78.00 Pure hypercholesterolemia, unspecified; E66.9 Obesity, unspecified; R47.1 Dysarthria and anarthria; Z87.891 Personal history of nicotine dependence; Z82.49 Family history of ischemic heart disease and other diseases of the circulatory system; Z80.9 Family history of malignant neoplasm, unspecified; F41.9 Anxiety disorder, unspecified; Z82.3 Family history of stroke; Z79.82 Long term (current) use of aspirin; E10.9 Type 1 diabetes mellitus without complications; Z68.37 Body mass index [BMI] 37.0-37.9, adult; Y83.8 Other surgical procedures as the cause of abnormal reaction of the patient, or of later complication, without mention of misadventure at the time of the procedure; F17.220 Nicotine dependence, chewing tobacco, uncomplicated; F11.10 Opioid abuse, uncomplicated

== ENCOUNTER 2016-12-12 16:49 | Emergency (ER) | payer OTHER ==
[~2016-12-12] VITALS: Ht 175.3 cm; Wt 136.0 kg
[~2016-12-12 16:49] MED LIST changes: +ATOR-22 PO; +BNT10 PO; +NYSS5 PO; +PLV75 PO; +PRT40 PO; +TPRSR25 PO; +TRC48 PO
[2016-12-12 17:03] VITALS: TEMP 37.1; Ht 175.3 cm; Wt 136.0 kg
--- NOTE | 2016-12-12 17:47 | DIAGNOSTIC IMAGING REPORT ---
CT HEAD WITHOUT CONTRAST (CT) CLINICAL HISTORY: fall, head injury HEAD PAIN COMPARISON STUDY: 12/09/2016 TECHNIQUE: Axial CT of the brain is performed from the vertex to the skull base. IV contrast was not administered for this examination. CT DOSE: 1228.53 mGy.cm FINDINGS: Again evident is a right middle cerebral artery territory infarct. There is minor increased density within the central portion of the infarct similar to the prior study. This could indicate petechial type hemorrhage. This remains unchanged. There is no CT evidence of acute hemorrhage. There is no midline shift. There is no evidence of pathologic ventricular dilatation. There is no evidence of acute sinusitis. There is a left parietal scalp hematoma. No calvarial fractures are visualized. IMPRESSION: 1. Left parietal scalp hematoma. No evidence of acute intraparenchymal, or subdural hemorrhage. No evidence of calvarial fracture. 2. Right middle cerebral artery territory infarct, unchanged in appearance when compared the preceding study Electronically signed by: Crow Frances M.D. 12/12/2016 5:45 PM Dictated Date/Time: 12/12/2016 5:43 PM
[2016-12-12 18:15] VITALS: BP 141/87; PULSE 106; O2SAT 96
--- NOTE | 2016-12-12 18:16 | EMERGENCY ROOM VISIT NOTE ---
ED Visit Note First contact with patient: 17:09 Problem List Medical Problems: (1) Anxiety Status: Chronic (2) Asthma Status: Chronic (3) Bipolar disorder Status: Chronic (4) Diabetes mellitus type I Status: Chronic (5) GERD (gastroesophageal reflux disease) Status: Chronic (6) HTN (hypertension) Status: Chronic (7) Obesity Status: Chronic (8) JOSE (obstructive sleep apnea) Status: Chronic Surgical Problems: (1) History of tonsillectomy and adenoidectomy Status: Resolved (2) Hx of reconstruction of anterior cruciate ligament tear Status: Resolved (3) S/P left knee arthroscopy Status: Resolved Social History Problems: (1) Tobacco use Status: Chronic Current/Historical Medications Scheduled Amlodipine (Norvasc), 5 MG PO DAILY Aspirin (Aspirin Ec), 81 MG PO DAILY Atorvastatin (Lipitor), 20 MG PO DAILY Budesonide/Formoterol Fumarate (Symbicort 160/4.5 Inhaler), 2 PUFFS INH BID Clopidogrel Bisulfate (Clopidogrel), 75 MG PO QAM Diazepam (Valium), 5 MG PO QID Dicyclomine HCl (Dicyclomine HCl), 10 MG PO QID Fenofibrate (Fenofibrate), 48 MG PO DAILY Fentanyl (Fentanyl), 12 MCG TD CQ72HR Fluticasone Propionate (Nasal) (Flonase Allergy Relief), 2 SPRAYS CAROLEE DAILY Gabapentin (Gabapentin), 400 MG PO TID Glipizide (Glipizide Er), 10 MG PO DAILY Hydrochlorothiazide (Hydrochlorothiazide), 25 MG PO DAILY Metformin Hcl Er (Glucophage Er), 500 MG PO BID Metoprolol Succinate (Metoprolol Succinate ER), 25 MG PO QAM Montelukast Sodium (Singulair), 10 MG PO DAILY Nystatin (Nystatin), 5 ML PO QID Oxycodone Hcl (Roxicodone), 15 MG PO QID Pantoprazole (Pantoprazole Sodium), 40 MG PO DAILY Trazodone Hcl (Trazodone), 300 MG PO HS Scheduled PRN Docusate Sodium (Stool Softener), 100 MG PO TID PRN for Constipation Potassium Ext Rel (Klor-Con), 20 MEQ PO DAILY PRN for WHEN TAKING LASIX Allergies Coded Allergies: Hydrocodone (Verified Allergy, Unknown, hives, itching, 12/12/16) Tramadol (Unverified Allergy, Unknown, VOMITING, 12/12/16) Vital Signs Date Time Temp Pulse Resp B/P Pulse Ox O2 Delivery O2 Flow Rate FiO2 12/12/16 18:15 106 20 141/87 96 Room Air 12/12/16 17:03 37.1 118 18 146/99 93 Room Air Departure Information Dispostion Home / Self-Care Condition GOOD Referrals Jaxson Eldridge PA-C (PCP) Patient Instructions [facility] Additional Instructions You have been treated in the Emergency Department for a Closed Head Injury. CT Scan of your head/brain demonstrated no acute bleeding or other abnormalities. This does not completely rule out the risk for future damage to the brain. For pain control, you can use the following [id number] medicines (if >12 yo): - Regular strength (325mg/tab) Tylenol (acetaminophen) 2 tabs every 4-6 hours as needed. Do not exceed 12 tablets in a 24 hour period. Avoid taking more than 4 grams (4000 mg) of Tylenol per day. This includes any other sources of acetaminophen you may take on a regular basis. - Regular strength (200 mg/tab) Advil (ibuprofen) 1-2 tabs every 4-6 hours as needed. Do not exceed a dose of 3200 mg per day. You should relax in a quiet, dark place for the rest of the day. Avoid any possible triggers including: cigarette smoke, caffeine, nicotine, chocolate, wine, beer, loud noises or music, or bright lights. You should schedule a follow-up appointment in 2-3 days with your Primary Care Provider or established Neurologist for further evaluation and treatment of your head injury. Return to the Emergency Department if your current symptoms worsen despite treatment course outlined above, or if you develop any of the following symptoms : intractable pain despite aforementioned treatment course, visual disturbances , loss of vision, slurring of speech, loss of coordination, or loss of consciousness.
--- NOTE | 2016-12-12 18:18 | EMERGENCY ROOM VISIT NOTE ---
ED Visit Note First contact with patient: 17:09 Patient evaluated with PA. On examination at 6:15 PM patient appears comfortable in no acute distress. He notes frequent falls secondary to chronic hip pain. Patient and his friends at bedside are comfortable with plan for discharge at this time. Agree with management and plan.
--- NOTE | 2016-12-12 23:59 | EMERGENCY ROOM VISIT NOTE ---
History First contact with patient: 17:09 Chief Complaint: LACERATION/CUT (SUT/DERMABOND) Stated Complaint: FALL, BLEEDING Nursing Triage Summary: pt recently had a stroke discharged today from hospital on his way home got out of the car and fell striking the back of his head, no loc, laceration to back of head History of Present Illness The patient is a 41 year old male who presents to the Emergency Room with complaints of a closed head injury which occurred just prior to arrival. The patient reports that he was just discharged from an admission for chest pain and had a stroke while in the hospital. He states that he has some weakness secondary to stroke but also has some chronic issues with his left hip. He states that he tripped and fell while walking to the car today and struck the back of his head. He reports pain in the head which he rates a 1/10. He denies any loss of consciousness, nausea or vomiting. The patient has left- sided weakness due to his recent stroke but denies any new numbness or weakness. Review of Systems A complete 10-point Review of Systems was discussed with the patient, with pertinent positives and negatives listed in the History of Present Illness. All remaining Review of Systems questions can be considered negative unless otherwise specified. Past Medical/Surgical History Medical Problems: (1) Anxiety (2) Asthma (3) Bipolar disorder (4) Chest pain (5) Diabetes (6) Diabetes mellitus type I (7) Dyslipidemia (8) GERD (gastroesophageal reflux disease) (9) HTN (hypertension) (10) Hypotension (11) Ischemic stroke (12) Obesity (13) JOSE (obstructive sleep apnea) Surgical Problems: (1) History of tonsillectomy and adenoidectomy (2) Hx of reconstruction of anterior cruciate ligament tear (3) S/P left knee arthroscopy Social History Problems: (1) Tobacco use Family History Diabetes mellitus FH: cancer FH: lung disease FHx: gallbladder disease FHx: heart disease Hypertension Kidney disease Kidney stones Social History Smoking Status: Current Every Day Smoker Alcohol Use: none Drug Use: none Marital Status: Housing Status: lives with family Occupation Status: disabled Current/Historical Medications Scheduled Amlodipine (Norvasc), 5 MG PO DAILY Aspirin (Aspirin Ec), 81 MG PO DAILY Atorvastatin (Lipitor), 20 MG PO DAILY Budesonide/Formoterol Fumarate (Symbicort 160/4.5 Inhaler), 2 PUFFS INH BID Clopidogrel Bisulfate (Clopidogrel), 75 MG PO QAM Diazepam (Valium), 5 MG PO QID Dicyclomine HCl (Dicyclomine HCl), 10 MG PO QID Fenofibrate (Fenofibrate), 48 MG PO DAILY Fentanyl (Fentanyl), 12 MCG TD [id number] Fluticasone Propionate (Nasal) (Flonase Allergy Relief), 2 SPRAYS CAROLEE DAILY Gabapentin (Gabapentin), 400 MG PO TID Glipizide (Glipizide Er), 10 MG PO DAILY Hydrochlorothiazide (Hydrochlorothiazide), 25 MG PO DAILY Metformin Hcl Er (Glucophage Er), 500 MG PO BID Metoprolol Succinate (Metoprolol Succinate ER), 25 MG PO QAM Montelukast Sodium (Singulair), 10 MG PO DAILY Nystatin (Nystatin), 5 ML PO QID Oxycodone Hcl (Roxicodone), 15 MG PO QID Pantoprazole (Pantoprazole Sodium), 40 MG PO DAILY Trazodone Hcl (Trazodone), 300 MG PO HS Scheduled PRN Docusate Sodium (Stool Softener), 100 MG PO TID PRN for Constipation Potassium Ext Rel (Klor-Con), 20 MEQ PO DAILY PRN for WHEN TAKING LASIX Allergies Coded Allergies: Hydrocodone (Verified Allergy, Unknown, hives, itching, 12/12/16) Tramadol (Unverified Allergy, Unknown, VOMITING, 12/12/16) Physical Exam Vital Signs Date Time Temp Pulse Resp B/P Pulse Ox O2 Delivery O2 Flow Rate FiO2 12/12/16 18:15 106 20 141/87 96 Room Air 12/12/16 17:03 37.1 118 18 146/99 93 Room Air Pain Rating (0-10): 10.0 Physical Exam VITALS: Vitals are noted on the nurse's note and reviewed by myself. Vital signs stable. GENERAL: This is a 41-year-old male, in no acute distress, nondiaphoretic, well- developed well-nourished. SKIN: There is a 2 cm abrasion to the posterior aspect of the head with minimal active bleeding. There are no lacerations. HEAD: Normocephalic atraumatic. EARS: External auditory canals clear, tympanic membranes pearly flower without erythema or effusion bilaterally. No hemotympanum. EYES: Pupils equal round and reactive to light and accommodation. Conjunctivae without injection, sclerae without icterus. Extraocular movements intact. FACE: There is some left-sided facial droop. MOUTH: Mucous membranes moist. NECK: Supple without nuchal rigidity. No tenderness of the cervical spine. HEART: Regular rate and rhythm without murmurs gallops or rubs. LUNGS: Clear to auscultation bilaterally without wheezes, rales or rhonchi. MUSCULOSKELETAL: Diffuse left-sided weakness. NEURO: Patient was alert and oriented to person place and time. Medical Decision & Procedures ER Provider Diagnostic Interpretation: CT HEAD WITHOUT CONTRAST (CT) CLINICAL HISTORY: fall, head injury HEAD PAIN COMPARISON STUDY: 12/09/2016 TECHNIQUE: Axial CT of the brain is performed from the vertex to the skull base. IV contrast was not administered for this examination. CT DOSE: 1228.53 mGy.cm FINDINGS: Again evident is a right middle cerebral artery territory infarct. There is minor increased density within the central portion of the infarct similar to the prior study. This could indicate petechial type hemorrhage. This remains unchanged. There is no CT evidence of acute hemorrhage. There is no midline shift. There is no evidence of pathologic ventricular dilatation. There is no evidence of acute sinusitis. There is a left parietal scalp hematoma. No calvarial fractures are visualized. IMPRESSION: 1. Left parietal scalp hematoma. No evidence of acute intraparenchymal, or subdural hemorrhage. No evidence of calvarial fracture. 2. Right middle cerebral artery territory infarct, unchanged in appearance when compared the preceding study Medical Decision Differential diagnosis includes concussion, contusion, abrasion, laceration, intracranial hemorrhage, among others. The patient was evaluated as above. He appears to be at his baseline. CT of the head was performed and no acute findings were found. A pressure dressing was applied to the patient's abrasion and the bleeding was controlled. There is no repair of laceration. Bacitracin and gauze dressing were applied to the wound. Head injury discharge instructions were reviewed with the patient. He verbalized understanding and was discharged home in good condition. Impression Primary Impression: Closed head injury Departure Information Dispostion Home / Self-Care Condition GOOD Referrals Jaxson Eldridge PA-C (PCP) Forms HOME CARE DOCUMENTATION FORM, IMPORTANT VISIT INFORMATION Patient Instructions My [facility] Additional Instructions You have been treated in the Emergency Department for a Closed Head Injury. CT Scan of your head/brain demonstrated no acute bleeding or other abnormalities. This does not completely rule out the risk for future damage to the brain. For pain control, you can use the following [id number] medicines (if >12 yo): - Regular strength (325mg/tab) Tylenol (acetaminophen) 2 tabs every 4-6 hours as needed. Do not exceed 12 tablets in a 24 hour period. Avoid taking more than 4 grams (4000 mg) of Tylenol per day. This includes any other sources of acetaminophen you may take on a regular basis. - Regular strength (200 mg/tab) Advil (ibuprofen) 1-2 tabs every 4-6 hours as needed. Do not exceed a dose of 3200 mg per day. You should relax in a quiet, dark place for the rest of the day. Avoid any possible triggers including: cigarette smoke, caffeine, nicotine, chocolate, wine, beer, loud noises or music, or bright lights. You should schedule a follow-up appointment in 2-3 days with your Primary Care Provider or established Neurologist for further evaluation and treatment of your head injury. Return to the Emergency Department if your current symptoms worsen despite treatment course outlined above, or if you develop any of the following symptoms : intractable pain despite aforementioned treatment course, visual disturbances , loss of vision, slurring of speech, loss of coordination, or loss of consciousness. Problem Qualifiers Primary Impression: Closed head injury Encounter type: initial encounter Qualified Codes: S09.90XA - Unspecified injury of head, initial encounter
[2016-12-27] MEDS ORDERED: DIAZ-165 PO (14:28)
[2016-12-27] MEDS ORDERED: OXYC15TA49 PO (14:28)
[2016-12-27] MEDS ORDERED: CPR500 PO (14:32)
[2017-03-21] MEDS ORDERED: NYSS/ PO (15:49)
[2017-03-21] MEDS ORDERED: HYDR25TA5 PO (15:49)
[2017-03-21] MEDS ORDERED: TPRSR25 PO (15:49)
[2017-03-21] MEDS ORDERED: PANT40TA PO (15:49)
[2017-03-21] MEDS ORDERED: ATOR-22 PO (15:49)
[2017-05-23] MEDS ORDERED: ATOR-22 PO (13:22)
[2017-06-25] MEDS ORDERED: FLUT0.15 NAE ×2 (03:53)
[2017-06-25] MEDS ORDERED: FENO48TA9 PO (15:49)
[2017-06-25] MEDS ORDERED: GABA1CAP5 PO (15:49)
[2017-06-25] MEDS ORDERED: CLOP1TAB15 PO (15:49)
[2017-06-25] MEDS ORDERED: METF500T PO (15:57)
[2017-06-25] MEDS ORDERED: MONT1TAB3 PO ×2 (16:15)
[2017-06-25] MEDS ORDERED: QUET1TAB34 PO (18:50)
[2017-07-26] MEDS ORDERED: ASPI81TA28 PO ×2 (03:53)
[2017-07-26] MEDS ORDERED: DOCU100T7 PO ×2 (20:42)
[2017-07-26] MEDS ORDERED: SYMIN160 INH ×2 (22:40)
== END 2016-12-12 18:26 | disposition home or self-care (01) ==
LOC: C.EDB 16:50 → C.EDD 18:26
DX: S09.90XA Unspecified injury of head, initial encounter (principal); I69.354 Hemiplegia and hemiparesis following cerebral infarction affecting left non-dominant side; E10.9 Type 1 diabetes mellitus without complications; J45.909 Unspecified asthma, uncomplicated; I10 Essential (primary) hypertension; E78.5 Hyperlipidemia, unspecified; M25.559 Pain in unspecified hip; G89.29 Other chronic pain; K21.9 Gastro-esophageal reflux disease without esophagitis; F41.9 Anxiety disorder, unspecified; F31.9 Bipolar disorder, unspecified; F17.200 Nicotine dependence, unspecified, uncomplicated; Z79.899 Other long term (current) drug therapy; Z79.84 Long term (current) use of oral hypoglycemic drugs; Z79.82 Long term (current) use of aspirin; Z79.891 Long term (current) use of opiate analgesic; Z91.81 History of falling; Z83.3 Family history of diabetes mellitus; Z82.49 Family history of ischemic heart disease and other diseases of the circulatory system; Z84.1 Family history of disorders of kidney and ureter; W18.09XA Striking against other object with subsequent fall, initial encounter; Y93.01 Activity, walking, marching and hiking; Y99.8 Other external cause status

== ENCOUNTER 2016-12-25 22:34 | Inpatient (IN) | payer OTHER ==
[~2016-12-25] VITALS: Ht 175.3 cm; Wt 108.4 kg
[~2016-12-25 22:34] MED LIST changes: -ASPI81TA82 PO; -DICY20TA35 PO; -FLUT0.0529 NAE; -LSN20 PO; -METO100T14 PO; -PRLSR20 PO
[2016-12-25] MEDS ORDERED: ORPH100T PO (23:09)
[2016-12-25] MEDS ORDERED: IBUP-1428 PO (23:09)
[2016-12-25] MEDS ORDERED: FURO-85 PO (23:09)
[2016-12-25] MEDS ORDERED: OXYCODONE HCL IR 5 MG TAB (IMMEDIATE RELEASE) PO STA (23:44)
[2016-12-26] VITALS (8 sets, daily range): BP systolic 115–146; BP diastolic 64–81; PULSE 54–87; TEMP 36.6–37.1; O2SAT 92–98; Ht 175.3 cm; Wt 108.4 kg
[2016-12-26 01:00] LABS: BASO % 0.2 %; BASO ABS # 0.02 K/uL (0-0.2); COMPLETE YES; HEMATOCRIT 40.8 % (42-52); IG% 0.5 %; LYMPH % 25.3 %; LYMPH ABS # 2.55 K/uL (1.2-3.4); MEAN CORPUSCULAR HEMOGLOBIN 30.8 pg (25-34); MEAN CORPUSCULAR HGB CONC 36.3 g/dl (32-36); MEAN PLATELET VOLUME 9.2 fL (7.4-10.4); MONO % 5.8 %; NEUT % 67.2 %; PLATELET COUNT 333 K/uL (130-400); WHITE BLOOD COUNT 10.06 K/uL (4.8-10.8)
[2016-12-26] MEDS ORDERED: MoRPHine SULFATE 10 MG/ML CARP/VIAL IV STA (01:11)
[2016-12-26] MEDS ORDERED: MoRPHine SULFATE 2 MG/ML CARP ONE (01:16)
[2016-12-26] MEDS ORDERED: MoRPHine SULFATE 4 MG/ML 1 ML CARP\\VIAL ONE (01:16)
[2016-12-26 01:23] LABS: BUN/CREATININE RATIO 12.8 (10-20); CALCIUM 9.1 mg/dl (8.5-10.1); CREATININE 2.4 mg/dl (0.60-1.40); POTASSIUM 3.7 mmol/L (3.5-5.1)
[2016-12-26] MEDS ORDERED: SODIUM CHLORIDE 0.9% 1000ML 2,000 ML IV STA (01:53)
--- NOTE | 2016-12-26 02:51 | EMERGENCY ROOM VISIT NOTE ---
History Report prepared by Hebert: Gurwinder Yost Under the Supervision of: Dr. Ed Calderon D.O. First contact with patient: 23:30 Chief Complaint: HEADACHE Stated Complaint: HEADACHE History of Present Illness The patient is a 41 year old male who presents to the Emergency Room with complaints of intermittent headaches that began this evening at 1730, 4 hours prior to arrival. He describes the pain as a "knife" in his head or a sharp pain , and notes that it is mainly located in his forehead. The patient states that he has been experiencing these headaches at some point everyday for the past couple of days. The patient was in the hospital at the beginning of this month for a heart catheterization which sent a bubble to his brain and resulted in a stroke. The stroke affected the left side of his body. He currently cannot use his left arm, but has full use of his left leg. The patient is not experiencing any new weakness or numbness at this time. He denies change in vision, fevers, chest pain, shortness of breath, nausea, vomiting, and diarrhea. 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 A total of 10 systems reviewed and were otherwise negative. Past Medical & Surgical Medical Problems: (1) Anxiety (2) Asthma (3) Bipolar disorder (4) Chest pain (5) Diabetes (6) Diabetes mellitus type I (7) Dyslipidemia (8) GERD (gastroesophageal reflux disease) (9) HTN (hypertension) (10) Hypotension (11) Ischemic stroke (12) Obesity (13) JOSE (obstructive sleep apnea) Surgical Problems: (1) History of tonsillectomy and adenoidectomy (2) Hx of reconstruction of anterior cruciate ligament tear (3) S/P left knee arthroscopy Social History Problems: (1) Tobacco use Family History Diabetes mellitus FH: cancer FH: lung disease FHx: gallbladder disease FHx: heart disease Hypertension Kidney disease Kidney stones Social History Smoking Status: Never Smoker Alcohol Use: none Drug Use: none Marital Status: Housing Status: lives with family Occupation Status: disabled Current/Historical Medications Scheduled Aspirin (Aspirin Ec), 81 MG PO DAILY Atorvastatin (Lipitor), 20 MG PO DAILY Budesonide/Formoterol Fumarate (Symbicort 160/4.5 Inhaler), 2 PUFFS INH BID Clopidogrel Bisulfate (Clopidogrel), 75 MG PO QAM Diazepam (Valium), 5 MG PO QID Dicyclomine HCl (Dicyclomine HCl), 10 MG PO QID Fenofibrate (Fenofibrate), 48 MG PO DAILY Fluticasone Propionate (Nasal) (Flonase Allergy Relief), 2 SPRAYS CAROLEE DAILY Gabapentin (Gabapentin), 400 MG PO TID Hydrochlorothiazide (Hydrochlorothiazide), 25 MG PO DAILY Metformin Hcl Er (Glucophage Er), 500 MG PO BID Metoprolol Succinate (Metoprolol Succinate ER), 25 MG PO QAM Montelukast Sodium (Singulair), 10 MG PO DAILY Nystatin (Nystatin), 5 ML PO QID Orphenadrine Citrate (Norflex), 100 MG PO BID Oxycodone Hcl (Roxicodone), 15 MG PO QID Pantoprazole (Pantoprazole Sodium), 40 MG PO DAILY Trazodone Hcl (Trazodone), 300 MG PO HS Scheduled PRN Docusate Sodium (Stool Softener), 100 MG PO TID PRN for Constipation Furosemide (Lasix), 20 MG PO BID PRN for FLUID Ibuprofen (Motrin), 800 MG PO DAILY PRN for Pain Potassium Ext Rel (Klor-Con), 20 MEQ PO DAILY PRN for WHEN TAKING LASIX Allergies Coded Allergies: Hydrocodone (Verified Allergy, Unknown, hives, itching, 12/12/16) Tramadol (Unverified Allergy, Unknown, VOMITING, 12/12/16) Physical Exam Vital Signs Date Time Temp Pulse Resp B/P Pulse Ox O2 Delivery O2 Flow Rate FiO2 12/26/16 00:23 82 18 148/88 99 Room Air 12/25/16 22:40 94 12/25/16 22:38 36.8 91 14 162/97 96 Room Air Physical Exam GENERAL: Sitting up in bed, disheveled, well nourished, no distress, non-toxic EYE EXAM: normal conjunctiva OROPHARYNX: no exudate, no erythema, lips, buccal mucosa, and tongue normal and mucous membranes are moist NECK: supple, no nuchal rigidity, no adenopathy, non-tender LUNGS: Clear to auscultation. Normal chest wall mechanics HEART: no murmurs, S1 normal and S2 normal ABDOMEN: abdomen soft, non-tender, normo-active bowel sounds, no masses, no rebound or guarding. BACK: Back is symmetrical on inspection and there is no deformity, no midline tenderness, no CVA tenderness. SKIN: no rashes and no bruising UPPER EXTREMITIES: upper extremities are grossly normal. LOWER EXTREMITIES: No pitting edema. NEURO EXAM: Slight left facial droop. Able to lift left upper extremity, limited motion in elbow and below which is old per patient. Left lower extremity , flexion/extension, hip, knee, and ankle intact. Right upper extremity intact. Normal sensorium. Medical Decision & Procedures ER Provider Diagnostic Interpretation: Xray results per the radiologist and my interpretation. Other results have been interpreted by the radiologist and reviewed by me. CT HEAD: Compared with 12/12/16 Evolving right MCA infarct with mild decreased size and density fo the right parietal bleed No new bleed. No significant mass effect or midline shift. Decreased left posterior scalp soft tissue swelling. Visualized paranasal sinuses and mastoid air cells are clear. Radiologist: Marina Fuentes M.D. Laboratory Results 12/26/16 00:38 Red Blood Count 4.80, Mean Corpuscular Volume 85.0, Mean Corpuscular Hemoglobin 30.8, Mean Corpuscular Hemoglobin Concent 36.3, Mean Platelet Volume 9.2, Neutrophils (%) (Auto) 67.2, Lymphocytes (%) (Auto) 25.3, Monocytes (%) (Auto) 5.8, Eosinophils (%) (Auto) 1.0, Basophils (%) (Auto) 0.2, Neutrophils # (Auto) 6.76, Lymphocytes # (Auto) 2.55, Monocytes # (Auto) 0.58, Eosinophils # (Auto) 0.10, Basophils # (Auto) 0.02 12/26/16 00:38 Test 12/26/16 00:38 White Blood Count 10.06 K/uL (4.8-10.8) Red Blood Count 4.80 M/uL (4.7-6.1) Hemoglobin 14.8 g/dL (14.0-18.0) Hematocrit 40.8 % (42-52) Mean Corpuscular Volume 85.0 fL (80-100) Mean Corpuscular Hemoglobin 30.8 pg (25-34) Mean Corpuscular Hemoglobin Concent 36.3 g/dl (32-36) Platelet Count 333 K/uL (130-400) Mean Platelet Volume 9.2 fL (7.4-10.4) Neutrophils (%) (Auto) 67.2 % Lymphocytes (%) (Auto) 25.3 % Monocytes (%) (Auto) 5.8 % Eosinophils (%) (Auto) 1.0 % Basophils (%) (Auto) 0.2 % Neutrophils # (Auto) 6.76 K/uL (1.4-6.5) Lymphocytes # (Auto) 2.55 K/uL (1.2-3.4) Monocytes # (Auto) 0.58 K/uL (0.11-0.59) Eosinophils # (Auto) 0.10 K/uL (0-0.5) Basophils # (Auto) 0.02 K/uL (0-0.2) RDW Standard Deviation 39.1 fL (36.4-46.3) RDW Coefficient of Variation 12.6 % (11.5-14.5) Immature Granulocyte % (Auto) 0.5 % Immature Granulocyte # (Auto) 0.05 K/uL (0.00-0.02) Anion Gap 14.0 mmol/L (3-11) Est Creatinine Clear Calc Drug Dose 48.7 ml/min Estimated GFR () 37.2 Estimated GFR (Non- 32.1 BUN/Creatinine Ratio 12.8 (10-20) Calcium Level 9.1 mg/dl (8.5-10.1) Laboratory results per my review. Medications Administered Medications (Trade) Dose Ordered Sig/Ney Route Start Time Stop Time Status Last Admin Dose Admin Oxycodone HCl (Roxicodone Immediate Rel Tab) 5 mg NOW STAT PO 12/25/16 23:44 12/25/16 23:45 DC 12/25/16 23:54 5 MG Morphine Sulfate (MoRPHine SULFATE INJ) 4 mg STK-MED ONCE .ROUTE 12/26/16 01:16 12/26/16 01:18 DC 12/26/16 01:21 4 MG Morphine Sulfate 2 mg 2 mg STK-MED ONCE .ROUTE 12/26/16 01:16 12/26/16 01:18 DC 12/26/16 01:20 2 MG Sodium Chloride (Nss 1000ml) 2,000 ml @ 999 mls/hr Q2H1M STAT IV 12/26/16 01:53 12/26/16 03:53 12/26/16 01:53 999 MLS/HR ED Course ED COURSE: Vital signs were reviewed and showed Hypertensive vitals. The patients medical record was reviewed The above diagnostic studies were performed and reviewed. ED treatments and interventions as stated above. 2334: The patient was evaluated in room B9. A complete history and physical examination was performed. 2344: Ordered Oxycodone HCl 5 mg PO. 0111: Ordered Morphine Sulfate 6 mg IV. 0116: Ordered Morphine Sulfate 2 mg IV, Morphine Sulfate 4 mg IV. 0125: I discussed the case with Dr. Tate - she will evaluate the patient for further treatment. 0128: Upon reevaluation, the patient is resting comfortably.I discussed my findings with the patient and he understands and agrees with the treatment plan. Based on the patients age, coexisting illnesses, exam and lab findings the decision to treat as an inpatient was made. The patient remained stable while under my care. The patient will be evaluated for further management. Medical Decision Differential Diagnosis includes but is not limited to headache, tension headache , cluster headache, migraine, subarachnoid hemorrhage, meningitis, mass, central venous thrombus, concussion, trauma and epidural/subdural hemorrhage. Patient is a 41-year-old male who presents the ER for headache. He is recently admitted to [facility] following a catheterization following which she had a stroke which affected his left side. He was discharged home as he did not want to go to rehabilitation. He presents tonight as he has been unable to get his medications as his sister is no longer helping to take care of him. Patient does have a headache which he notes comes and goes daily. Gradually worsens. Feels like his typical previous headaches which are present every day since the stroke. CT head was unchanged/improved from previous. Labs show acute kidney injury with a creatinine of 2.4. He is given a bolus normal saline. His case was discussed with internal medicine as he can no longer take care of himself at home and he has acute kidney injury. Consults Time Called: 0120 Consulting Physician: Dr. Tate Returned Call: 0125 I discussed the case with Dr. Tate - she will evaluate the patient for further treatment. Impression Primary Impression: Headache Additional Impression: Failure to thrive Scribe Attestation The scribe's documentation has been prepared under my direction and personally reviewed by me in its entirety. I confirm that the note above accurately reflects all work, treatment, procedures, and medical decision making performed by me. Departure Information Dispostion Being Evaluated By Hospitalist Referrals Jaxson Eldridge PA-C (PCP) Patient Instructions My [facility] Problem Qualifiers Primary Impression: Headache Headache type: unspecified Headache chronicity pattern: unspecified pattern Intractability: not intractable Qualified Codes: R51 - Headache Additional Impression: Failure to thrive Failure to thrive age range: in adult Qualified Codes: R62.7 - Adult failure to thrive
[2016-12-26] MEDS ORDERED: POLYETHYLENE (MIRALAX) 17 GM PACK PO PRN (03:00)
[2016-12-26] MEDS ORDERED: ONDANSETRON INJ 2 MG/ML 2 ML VIAL IV PRN (03:00)
[2016-12-26] MEDS ORDERED: GLUCAGON FOR INJ 1 MG VIAL SQ PRN (03:00)
[2016-12-26] MEDS ORDERED: GLUCOSE 10 TABS/TUBE PO PRN (03:00)
[2016-12-26] MEDS ORDERED: DEXTROSE 50% 50 ML SYR IV PRN (03:00)
[2016-12-26] MEDS ORDERED: GLUCOSE 40% GEL 15 GM TUBE PO PRN (03:00)
[2016-12-26] MEDS ORDERED: DC ALL PREVIOUSLY ORDERED DIABETES MEDS ONE (03:00)
[2016-12-26] MEDS ORDERED: PHARMACY GLYCEMIC MGMT CONSULT PRN (03:16)
[2016-12-26] MEDS: ACETAMINOPHEN 325 MG TAB PO PRN ×2 (04:02→08:57)
[2016-12-26] MEDS: SODIUM CHLORIDE 0.9% 1000ML 1,000 ML IV SCH ×3 (05:05→21:21)
[2016-12-26] MEDS: CEFTRIAXONE SOD INJ 1 GM in DEXTROSE 5% ADD-VANTAGE 50ML 50 ML IV SCH (05:05)
[2016-12-26] MEDS: HEPARIN SOD 5000 UNIT/0.5 ML CARP SQ SCH ×3 (05:10→21:37)
--- NOTE | 2016-12-26 06:33 | DIAGNOSTIC IMAGING REPORT ---
CT HEAD WITHOUT CONTRAST (CT) CLINICAL HISTORY: Severe headache COMPARISON STUDY: 12/12/2016 TECHNIQUE: Axial CT of the brain is performed from the vertex to the skull base. IV contrast was not administered for this examination. CT DOSE: 651.12 mGy.cm FINDINGS: Again evident is a right middle cerebral artery territory infarct. There is decrease in the size of the central petechial hemorrhage. No new areas of infarction are evident. There are no new areas of hemorrhage. There is no midline shift. There is no evidence of pathologic ventricular dilatation. There is decreased left parietal scalp swelling. IMPRESSION: 1. Evolutionary changes of the previously identified right middle cerebral artery infarct with decreased petechial hemorrhage 2. Decreased left parietal scalp swelling 3. No acute intracranial findings Electronically signed by: Crow Frances M.D. 12/26/2016 6:32 AM Dictated Date/Time: 12/26/2016 6:29 AM
[2016-12-26 07:53] LABS: BUN/CREATININE RATIO 12.6 (10-20); CALCIUM 8.6 mg/dl (8.5-10.1); CREATININE 2.4 mg/dl (0.60-1.40); MAGNESIUM 2.2 mg/dl (1.8-2.4); POTASSIUM 3.6 mmol/L (3.5-5.1)
[2016-12-26] MEDS: INSULIN GLARGINE SOLOSTAR 100 UNITS/ML 3 ML PEN SC SCH ×2 (08:00→21:06)
--- NOTE | 2016-12-26 08:51 | History and Physical ---
History & Physical Date & Time of Service: Dec 26, 2016 at 03:01 Chief Complaint: Headache Primary Care Physician: No Doctor, Assigned History of Present Illness Source: patient 41 yoM who was recently admitted for chest pain, underwent a cath, did not have stents placed and suffered complications of stroke that left him without use of his left arm. He was sent home and since he has been there, he has been unable to care for himself. He cannot take his medications because he cannot open bottles and he has forgetfulness. He denies eating very much in the last few days because he isn't hungry. He also reports some R flank pain that is sharp and doesn't radiate which has been present since he stopped in/out cathing ( about 1 week ago). He also admits to some gross hematuria that has resolved, as well as some dysuria at the end of his voids. He reports requiring self- catheterization beginning two weeks ago in the hospital for acute urinary retention. He denies a h/o kidney stones, fevers, chills, chest pain, shortness of breath, nausea, vomiting or diarrhea. He does report intermittent blurry vision since the stroke and a persistent frontal headache for days to weeks. He reports a h/o headaches in the past that were similar and occurred twice weekly. He would take Ibuprofen for those, and reports taking high dose Ibuprofen 3-4 times daily for the past couple of weeks to try to rid his headache. He was scheduled to see an eye doctor for his vision because it impairs his ability to use his cell phone among other things, however, he was unable to get someone to drive him to the appointment. He states that he is currently from his and they are not living together. He states that his sister was living with him and helping him with his medications, but she was getting things wrong and then his landlord kicked her out. Past Medical/Surgical History Medical Problems: (1) Anxiety Status: Chronic (2) Asthma Status: Chronic (3) Bipolar disorder Status: Chronic (4) Diabetes mellitus type I Status: Chronic (5) GERD (gastroesophageal reflux disease) Status: Chronic (6) HTN (hypertension) Status: Chronic (7) Obesity Status: Chronic (8) JOSE (obstructive sleep apnea) Status: Chronic Surgical Problems: (1) History of tonsillectomy and adenoidectomy Status: Resolved (2) Hx of reconstruction of anterior cruciate ligament tear Status: Resolved (3) S/P left knee arthroscopy Status: Resolved Social History Problems: (1) Tobacco use Status: Chronic Family History Diabetes mellitus FH: cancer FH: lung disease FHx: gallbladder disease FHx: heart disease Hypertension Kidney disease Kidney stones Social History Smoking Status: Never Smoker Smokeless Tobacco Use: No Alcohol Use: none Drug Use: none Marital Status: Housing status: lives alone Occupational Status: disabled Immunizations History of Influenza Vaccine: Yes Influenza Vaccine Date: Aug 25, 2012 History of Tetanus Vaccine?: Yes Tetanus Immunization Date: Aug 12, 1992 History of Pneumococcal: Yes Pneumococcal Date: Aug 09, 2006 History of Hepatitis B Vaccine: Unknown Multi-Drug Resistant Organisms History of MDRO: No Allergies Coded Allergies: Hydrocodone (Verified Allergy, Unknown, hives, itching, 12/12/16) Tramadol (Unverified Allergy, Unknown, VOMITING, 12/12/16) Home Medications Scheduled Aspirin (Aspirin Ec), 81 MG PO DAILY Atorvastatin (Lipitor), 20 MG PO DAILY Budesonide/Formoterol Fumarate (Symbicort 160/4.5 Inhaler), 2 PUFFS INH BID Clopidogrel Bisulfate (Clopidogrel), 75 MG PO QAM Diazepam (Valium), 5 MG PO QID Dicyclomine HCl (Dicyclomine HCl), 10 MG PO QID Fenofibrate (Fenofibrate), 48 MG PO DAILY Fluticasone Propionate (Nasal) (Flonase Allergy Relief), 2 SPRAYS CAROLEE DAILY Gabapentin (Gabapentin), 400 MG PO TID Hydrochlorothiazide (Hydrochlorothiazide), 25 MG PO DAILY Metformin Hcl Er (Glucophage Er), 500 MG PO BID Metoprolol Succinate (Metoprolol Succinate ER), 25 MG PO QAM Montelukast Sodium (Singulair), 10 MG PO DAILY Nystatin (Nystatin), 5 ML PO QID Orphenadrine Citrate (Norflex), 100 MG PO BID Oxycodone Hcl (Roxicodone), 15 MG PO QID Pantoprazole (Pantoprazole Sodium), 40 MG PO DAILY Trazodone Hcl (Trazodone), 300 MG PO HS Scheduled PRN Docusate Sodium (Stool Softener), 100 MG PO TID PRN for Constipation Furosemide (Lasix), 20 MG PO BID PRN for FLUID Ibuprofen (Motrin), 800 MG PO DAILY PRN for Pain Potassium Ext Rel (Klor-Con), 20 MEQ PO DAILY PRN for WHEN TAKING LASIX Review of Systems All systems reviewed and negative except as indicated by HPI. Physical Exam Vital Signs Date Time Temp Pulse Resp B/P Pulse Ox O2 Delivery O2 Flow Rate FiO2 12/26/16 00:23 82 18 148/88 99 Room Air 12/25/16 22:40 94 12/25/16 22:38 36.8 91 14 162/97 96 Room Air GEN: WNWD, in no acute distress, alert and appropriate HEENT: NC/AT, PERRL, normal sclerae, EOMI CARDIO: reg rate, S1/2 heard without m/g/r LUNGS: CTA bilaterally, no crackles, rales or wheezes, good diaphragmatic excursion ABD: +BS, soft, non-tender, non-distended, no rebound or guarding, +CVA tenderness on the right EXTREMITY: RP and DP palpable 2+ bilat, no LE swelling or edema, extremities are warm and well-perfused LUE: can make some fist but has no hand strength, can adduct/abduct arm at shoulder somewhat, sensation intact LLE: 5/5 strength throughout with normal ROM, sensation intact NEURO: CN 2-12 intact, sensation intact throughout, (reflex) knee 2+ bilat MUSC: 5/5 strength throughout, no focal deficits SKIN: warm and dry Diagnostics Laboratory Results Results Past 24 Hours Test 12/26/16 00:38 Range/Units White Blood Count 10.06 4.8-10.8 K/uL Red Blood Count 4.80 4.7-6.1 M/uL Hemoglobin 14.8 14.0-18.0 g/dL Hematocrit 40.8 42-52 % Mean Corpuscular Volume 85.0 80-100 fL Mean Corpuscular Hemoglobin 30.8 25-34 pg Mean Corpuscular Hemoglobin Concent 36.3 32-36 g/dl Platelet Count 333 130-400 K/uL Mean Platelet Volume 9.2 7.4-10.4 fL Neutrophils (%) (Auto) 67.2 % Lymphocytes (%) (Auto) 25.3 % Monocytes (%) (Auto) 5.8 % Eosinophils (%) (Auto) 1.0 % Basophils (%) (Auto) 0.2 % Neutrophils # (Auto) 6.76 1.4-6.5 K/uL Lymphocytes # (Auto) 2.55 1.2-3.4 K/uL Monocytes # (Auto) 0.58 0.11-0.59 K/uL Eosinophils # (Auto) 0.10 0-0.5 K/uL Basophils # (Auto) 0.02 0-0.2 K/uL RDW Standard Deviation 39.1 36.4-46.3 fL RDW Coefficient of Variation 12.6 11.5-14.5 % Immature Granulocyte % (Auto) 0.5 % Immature Granulocyte # (Auto) 0.05 0.00-0.02 K/uL Sodium Level 135 136-145 mmol/L Potassium Level 3.7 3.5-5.1 mmol/L Chloride Level 99 98-107 mmol/L Carbon Dioxide Level 22 21-32 mmol/L Anion Gap 14.0 3-11 mmol/L Blood Urea Nitrogen 31 7-18 mg/dl Creatinine 2.40 0.60-1.40 mg/dl Est Creatinine Clear Calc Drug Dose 48.7 ml/min Estimated GFR () 37.2 Estimated GFR (Non- 32.1 BUN/Creatinine Ratio 12.8 10-20 Random Glucose 91 70-99 mg/dl Calcium Level 9.1 8.5-10.1 mg/dl Diagnostic Radiology CT head wo contrast: IMPRESSION: 1. Evolutionary changes of the previously identified right middle cerebral artery infarct with decreased petechial hemorrhage 2. Decreased left parietal scalp swelling 3. No acute intracranial findings EKG EKG from 12/04/2016: SR 76, early repolarization Impression Assessment and Plan 41 yoM with recent post-op stroke and subsequent L upper arm disability who presents with chronic intractable headache and symptoms consistent with acute pyelonephritis after acute urinary retention. 1. YOLA 2/2 NSAID use vs dehydration 2/2 poor PO intake as two possible etiologies. Patient reports not eating well and Ibuprofen 800mg four times daily for the last 1-2 weeks to control his headache. IVF and avoid NSAIDs at this time. Urine lytes ordered. PRP in am. 2. Headache-Trial of Fioricet 3. S/P R MCA Stroke-ASA/Plavix, blurry vision, needs rehab and placement. PT/ .OT to eval 4. ?pyelonephritis-UA/UCx ordered. Will treat empirically with Rocephin 5. Acute urinary retention-was self-catheterizing up until a week ago, however , states that he has been urinating on his own for one week. Reports that this has resolved. Will monitor. 6. CAD-nonobstructive per cath two weeks ago. Toprol XL started at that time. 7. HTN-recently taken off Norvasc and Lisinopril. Started on Toprol XL. Controlled. CCM. There was a question of him being on HCTZ which is being held anyway in light of YOLA. 8. Dyslipidemia-cont fenofibrate and Lipitor-both recently started. 9. DMII-holding Metformin, ISS and Lantus, Glycemic pharmacy consult 10. Bronchial asthma-stable, no exacerbation-cont home inhalers and singulair 11. GERD-cont Protonix. DVT Prophylaxis: Heparin FULL CODE Dispo: to floor, needs repeat PT/OT eval for placement as failed trial of going home. Pascale Ahuja DO [facility] Level of Care Med/Surg Resuscitation Status FULL RESUSCITATION VTE Prophylaxis VTE Risk Assessment Done? Y/N: Yes Risk Level: Moderate Given or contraindicated: Unfractionated heparin SQ, SCD's
[2016-12-26] MEDS: INSULIN ASPART 100 UNITS/ML 3 ML PEN SC SCH ×4 (08:54→21:00)
[2016-12-26] MEDS ORDERED: DOCUSATE SODIUM 100 MG CAP PO PRN (09:00)
[2016-12-26] MEDS ORDERED: INSULIN GLARGINE SOLOSTAR 100 UNITS/ML 3 ML PEN SC SCH (09:00)
[2016-12-26] MEDS ORDERED: BUTALBITAL/ACETAMIN/CAFFEINE TAB PO PRN (09:15)
[2016-12-26 09:51] LABS: URINE APPEARANCE TURBID (CLEAR); URINE BILIRUBIN NEG (NEG); URINE COLOR YELLOW; URINE EPITHELIAL CELL AUTO >30 /lpf (0-5); URINE NITRITE POS (NEG); URINE SPECIFIC GRAVITY 1.011 (1.000-1.030); UROBILINOGEN NEG (NEG)
[2016-12-26 09:59] LABS: MANUAL MICROSCOPIC REQUIRED? NO; REVIEW REQ? NO
--- NOTE | 2016-12-26 10:47 | Pharmacy Progress Note ---
Glycemic Control Intl Consult Date of Service Dec 26, 2016. Scope Glycemic Pharmacist consulted by Dr Ahuja on 12/26/16 for glycemic control and to write orders per [facility] inpatient glycemic control protocol Objective Weight (Kilograms): 108.400 Accuchecks BSG (last 24hrs): Test 12/26/16 00:38 12/26/16 06:50 Random Glucose 91 mg/dl (70-99) 94 mg/dl (70-99) Laboratory Data (last 24hrs) Test 12/26/16 00:38 12/26/16 06:50 Anion Gap 14.0 mmol/L 12.0 mmol/L BUN/Creatinine Ratio 12.8 12.6 Blood Urea Nitrogen 31 mg/dl 30 mg/dl Creatinine 2.40 mg/dl 2.40 mg/dl Potassium Level 3.7 mmol/L 3.6 mmol/L Sodium Level 135 mmol/L 138 mmol/L White Blood Count 10.06 K/uL Red Blood Count 4.80 M/uL Hemoglobin 14.8 g/dL Hematocrit 40.8 % Mean Corpuscular Volume 85.0 fL Mean Corpuscular Hemoglobin 30.8 pg Mean Corpuscular Hemoglobin Concent 36.3 g/dl Platelet Count 333 K/uL Mean Platelet Volume 9.2 fL Neutrophils (%) (Auto) 67.2 % Lymphocytes (%) (Auto) 25.3 % Monocytes (%) (Auto) 5.8 % Eosinophils (%) (Auto) 1.0 % Basophils (%) (Auto) 0.2 % Neutrophils # (Auto) 6.76 K/uL Lymphocytes # (Auto) 2.55 K/uL Monocytes # (Auto) 0.58 K/uL Eosinophils # (Auto) 0.10 K/uL Basophils # (Auto) 0.02 K/uL HbA1c 8.3% on 12/05/16 Recent Pertinent Medications Outpatient Anti-diabetic Regimen: * Metformin 500mg PO BIDM The patient is currently receiving: * Basal insulin: Lantus 10 units every 12 hours * Correctional Insulin: Novolog Correction per scale ACHS Goal Range: Low 100 mg/dL - High 140 mg/dL Correction Factor: 40 mg/dL/unit * Prandial insulin: Per carb ratio of 1 unit per 13 grams CHO consumed * Oral Agents: On hold for admission Risk Factors for Insulin Resistance: * Infection: * Diet Assessment & Plan ASSESSMENT: * 41yo T2DM male known to pharmacy from previous admissions/glycemic consults * Pt with sub-adequate control of diabetes per recent A1c > 8% Outpatient regimen will need adjusted at discharge * Patient with risk factors for hypoglycemia including: * BSGs below goal range on admission, 91, 94, 85mg/dl * Insulin naive * YOLA * Will add hold/half parameters to basal insulin orders to prevent hypoglycemia * Per previous admission in Nov 2016, patient required 0-30 units of insulin per day depending on PO intake. Will continue similar weight/stress based orders and adjust based on BSG trends. * ADA & AACE recommend a goal blood sugar range 140-180 mg/dl for the majority of critically ill & non-critically ill patients. However, more stringent targets may be selected in individual cases. Will utilize slightly more stringent goal range based on age. PLAN FOR INPATIENT GLYCEMIC CONTROL: * Holding outpatient oral diabetes medications- metformin should be held for YOLA. * Basal insulin with LANTUS SQ BID, dosing based on BSG * If BSG 140mg/dl or below --> HOLD Lantus * If BSG 141-200mg/dl --> Administer 10 units of Lantus * If BSG 201mg/dl or above --> Administer 15 units of Lantus * Correctional Insulin with NOVOLOG per scale ACHS or Q6hrs while NPO * Goal Range: Low 120 mg/dL - High 160 mg/dL * Correction Factor: 25 mg/dL/unit * Nutritional / Prandial insulin per carb ratio of 1 unit per 9 grams CHO consumed * Please note that the plan above was derived based on current level of insulin resistance and hospital stress. These recommendations are appropriate for inpatient admission only. Plan of care upon discharge will need to be reassessed to avoid potential outpatient hypo/hyperglycemia. Thank you.
[2016-12-26] MEDS: FENOFIBRATE 48 MG TAB PO SCH (11:35)
[2016-12-26] MEDS: DICYCLOMINE HCL 10 MG CAP PO SCH ×3 (11:36→21:22)
[2016-12-26] MEDS: NYSTATIN SUSP 500,000 U/5 ML UDC PO SCH ×3 (11:36→21:23)
[2016-12-26] MEDS: OXYCODONE HCL IR 5 MG TAB (IMMEDIATE RELEASE) PO SCH ×3 (11:37→21:35)
[2016-12-26] MEDS: DIAZEPAM 5MG TAB PO SCH ×3 (11:37→21:35)
[2016-12-26] MEDS: GABAPENTIN 400 MG CAP PO SCH ×2 (13:22→21:22)
--- NOTE | 2016-12-26 16:41 | Progress Note ---
Internal Med Progress Note Date of Service: Dec 26, 2016. Provider Documentation: SUBJECTIVE: Patient is fidgety and anxious. Denies any c/o headache, blurry vision, nausea, vomiting, Does have chronic low back pain, left sided (upper > lower weakness) No fever, chills, abdominal pain, cough, chest pain, SOB, worsening of weakness from last admission OBJECTIVE: Vital Signs-as noted below Exam: General-AAOX3, Fidgety/Anxious Eyes-No icterus Neck-Supple, No JVD Lungs-AEBE, no wheezing Heart-S1, S2 normal, no murmurs Abdomen-Soft, non tender, non distended, bs present Neuro-Cranial nerves intact, Power - 2/5 left upper ext, 4/5 lower extremity- left, Right 5/5 Ext- no edema Skin - tattoos + ASSESSMENT & PLAN: 41 year old M with recent post-op stroke and subsequent Lt upper arm disability who presents with chronic intractable headache and family unable to take care of him at home - for placement. YOLA Likely secondary to NSAID use/Volume depletion secondary to poor PO intake Patient does report not eating well and taking Ibuprofen 800 mg PO QID for last 1-2 weeks to control his headache. -IV fluids -Will order US renal to rule out obstructive etiology as compared to few days ago - creatinine has bumped up to 2.4 -Avoid NSAIDS and nephrotoxic agents UTI -Risk factor: Urinary retention secondary to recent stroke -IV Rocephin q 24 hours (Day 1) -Urine c/s- follow up HEADACHE- CT head- negative for acute abnormalities, evolutionary changes from recent Rt MCA stroke, decreased left parietal scalp swelling -Avoid NSAIDs. Trial of fioricet HX OF RECENT MCA -RIGHT STROKE WITH RESIDUAL LEFT SIDED (UPPER > LEFT) WEAKNESS , COGNITIVE ISSUES -Continue with ASA, Plavix -Work up- CT head- no acute findings, Neurological exam- improvement in weakenss -PT/OT URINARY RETENTION With recent stroke -Self catheterization at home until 1 week ago, but now has been urinating x 1 week per patient -Monitor HX OF CAD- Non obstructive -Per cath 2 Weeks ago. Toprol XL started at that time HTN- Recently taken off norvasc and lisinopril. Started on Toprol XL 2 weeks ago due to CAD -Monitor DYSLIPIDEMIA -Continue with fenofibrate/Lipitor DM-III Hold Metformin, ISS, Lantus Pharmacy consult ASTHMA WITH NO EXACERBATION Stable GERD Continue with Protonix HX OF ALCOHOL ABUSE Says has not taken it for years and no drug abuse. -Will still order alcohol level, urine tox screen DVT PROPHYLAXIS Heparin SQ FULL CODE DISPOSITION PT/OT Will need placement as family unable to take care of him and needs rehab post stroke, which he had refused during last admission Vital Signs: Date Time Temp Pulse Resp B/P Pulse Ox O2 Delivery O2 Flow Rate FiO2 12/26/16 16:08 Room Air 12/26/16 14:58 36.6 68 16 121/68 96 Room Air 12/26/16 13:04 36.6 87 16 142/80 96 Room Air 12/26/16 09:15 Room Air 12/26/16 07:12 36.7 70 16 121/81 98 Room Air 12/26/16 05:43 97 Room Air 12/26/16 05:40 36.8 83 18 146/79 12/26/16 04:17 36.8 84 18 150/94 98 12/26/16 03:47 84 18 150/94 98 Room Air 12/26/16 01:30 88 14 100 Room Air 12/26/16 01:00 82 16 12/26/16 00:30 83 19 12/26/16 00:23 82 18 148/88 99 Room Air 12/26/16 00:21 148/88 12/25/16 22:40 94 12/25/16 22:38 36.8 91 14 162/97 96 Room Air Lab Results: Results Past 24 Hours Test 12/26/16 00:38 12/26/16 06:50 12/26/16 07:18 12/26/16 09:08 Range/Units White Blood Count 10.06 4.8-10.8 K/uL Red Blood Count 4.80 4.7-6.1 M/uL Hemoglobin 14.8 14.0-18.0 g/dL Hematocrit 40.8 42-52 % Mean Corpuscular Volume 85.0 80-100 fL Mean Corpuscular Hemoglobin 30.8 25-34 pg Mean Corpuscular Hemoglobin Concent 36.3 32-36 g/dl Platelet Count 333 130-400 K/uL Mean Platelet Volume 9.2 7.4-10.4 fL Neutrophils (%) (Auto) 67.2 % Lymphocytes (%) (Auto) 25.3 % Monocytes (%) (Auto) 5.8 % Eosinophils (%) (Auto) 1.0 % Basophils (%) (Auto) 0.2 % Neutrophils # (Auto) 6.76 1.4-6.5 K/uL Lymphocytes # (Auto) 2.55 1.2-3.4 K/uL Monocytes # (Auto) 0.58 0.11-0.59 K/uL Eosinophils # (Auto) 0.10 0-0.5 K/uL Basophils # (Auto) 0.02 0-0.2 K/uL RDW Standard Deviation 39.1 36.4-46.3 fL RDW Coefficient of Variation 12.6 11.5-14.5 % Immature Granulocyte % (Auto) 0.5 % Immature Granulocyte # (Auto) 0.05 0.00-0.02 K/uL Sodium Level 135 138 136-145 mmol/L Potassium Level 3.7 3.6 3.5-5.1 mmol/L Chloride Level 99 105 98-107 mmol/L Carbon Dioxide Level 22 21 21-32 mmol/L Anion Gap 14.0 12.0 3-11 mmol/L Blood Urea Nitrogen 31 30 7-18 mg/dl Creatinine 2.40 2.40 0.60-1.40 mg/dl Est Creatinine Clear Calc Drug Dose 48.7 48.7 ml/min Estimated GFR () 37.2 37.2 Estimated GFR (Non- 32.1 32.1 BUN/Creatinine Ratio 12.8 12.6 10-20 Random Glucose 91 94 70-99 mg/dl Calcium Level 9.1 8.6 8.5-10.1 mg/dl Magnesium Level 2.2 1.8-2.4 mg/dl Bedside Glucose 85 70-99 mg/dl Urine Color YELLOW Urine Appearance TURBID CLEAR Urine pH 5.0 4.5-7.5 Urine Specific [place] 1.011 1.000-1.030 Urine Protein 1+ NEG Urine Glucose (UA) NEG NEG Urine Ketones NEG NEG Urine Occult Blood 1+ NEG Urine Nitrite POS NEG Urine Bilirubin NEG NEG Urine Urobilinogen NEG NEG Urine Leukocyte Esterase LARGE NEG Urine WBC (Auto) >30 0-5 /hpf Urine RBC (Auto) 5-10 0-4 /hpf Urine Hyaline Casts (Auto) 1-5 0-5 /lpf Urine Epithelial Cells (Auto) >30 0-5 /lpf Urine Bacteria (Auto) NEG NEG Urine Random Creatinine 130.0 mg/dl Urine Random Sodium 63 mEq/L Test 12/26/16 11:26 Range/Units Bedside Glucose 130 70-99 mg/dl Microbiology Results 12/26/16 Urine Culture, Received Pending
[2016-12-26] MEDS ORDERED: TRAZODONE HCL 100 MG TAB PO SCH (21:00)
[2016-12-26] MEDS ORDERED: MONTELUKAST SOD 10 MG TAB PO SCH (21:00)
[2016-12-26] MEDS: BUDESONIDE/FORMOTEROL FUMARATE 160/4.5 60 PUFFS/INHALER INH SCH (21:21)
[2016-12-27] MEDS: CEFTRIAXONE SOD INJ 1 GM in DEXTROSE 5% ADD-VANTAGE 50ML 50 ML IV SCH (05:29)
[2016-12-27] MEDS: SODIUM CHLORIDE 0.9% 1000ML 1,000 ML IV SCH ×2 (05:29→13:59)
[2016-12-27] MEDS: HEPARIN SOD 5000 UNIT/0.5 ML CARP SQ SCH ×2 (05:32→13:58)
--- NOTE | 2016-12-27 06:01 | Clinical Documentation Query ---
CLINICAL DOCUMENTATION QUERY 41-y/o male who presents after recent CVA with severe headaches causing decrease PO intake and over use of PO Ibuprofen. In your clinical opinion is this patient being managed for: (+ ) Headaches likely d/t the late effects of CVA requiring treatment with IV and PO Narcotics along with being started on Fioricet. ( ) Other explanation of clinical findings (Please Explain) ( ) Unable to determine (Please Define) ( ) Need to Discuss ( ) Not Agree The medical record reflects the following clinical findings, treatment, and risk factors. Clinical Indicators: Present with 2 week hx of headaches uncontrolled with home PO Ibuprofen. Patient has had a recent CVA. CT head on this admission negative for acute abnormalities, evolutionary changes from recent Rt MCA stroke, Treatment: Head CT IV Morphine, Oxycodone, IVF bolus, Fioricet, Risk Factors: Recent CVA. Please clarify and document your clinical opinion in the progress notes and discharge summary. Terms such as "probable", "suspected", "likely", "questionable", "possible", or "still to be ruled out" are acceptable. IF IN AGREEMENT, YOU MUST DOCUMENT ABOVE DIAGNOSTIC STATEMENT IN DAILY PROGRESS NOTES AND DISCHARGE SUMMARY. This document is not part of the patient's record. Thank You, Jose D Amado, RN [phone]
[2016-12-27 06:12] LABS: ESTIMATED AVERAGE GLUCOSE 169 mg/dl; HA1C FLAG Normal (Normal)
[2016-12-27] MEDS: BUDESONIDE/FORMOTEROL FUMARATE 160/4.5 60 PUFFS/INHALER INH SCH (07:48)
[2016-12-27] MEDS: DICYCLOMINE HCL 10 MG CAP PO SCH ×2 (07:51→13:55)
[2016-12-27] MEDS: GABAPENTIN 400 MG CAP PO SCH ×2 (07:54→13:55)
[2016-12-27] MEDS: OXYCODONE HCL IR 5 MG TAB (IMMEDIATE RELEASE) PO SCH ×2 (07:55→12:37)
[2016-12-27] MEDS: FENOFIBRATE 48 MG TAB PO SCH (07:56)
[2016-12-27] MEDS: DIAZEPAM 5MG TAB PO SCH ×2 (07:57→12:37)
[2016-12-27] MEDS ORDERED: FLUTICASONE PROPIONATE NA SPR 16 GM BTL NAE SCH (08:00)
[2016-12-27] MEDS ORDERED: ASPIRIN 81 MG ECTAB PO SCH (08:00)
[2016-12-27] MEDS ORDERED: METOPROLOL SUCC 25MG EXT REL TAB PO SCH (08:00)
[2016-12-27] MEDS: INSULIN GLARGINE SOLOSTAR 100 UNITS/ML 3 ML PEN SC SCH (08:00)
[2016-12-27] MEDS ORDERED: PANTOprazole SOD 40 MG TAB PO SCH (08:00)
[2016-12-27] MEDS ORDERED: ATORVASTATIN 20 MG TAB PO SCH (08:00)
[2016-12-27] MEDS ORDERED: CLOPIDOGREL BISULFATE 75 MG TAB PO SCH (08:00)
[2016-12-27 08:01] VITALS: BP 119/78; PULSE 63; TEMP 36.9; O2SAT 96
[2016-12-27 08:27] LABS: BUN/CREATININE RATIO 19.5 (10-20); CALCIUM 8.2 mg/dl (8.5-10.1); CREATININE 1.4 mg/dl (0.60-1.40)
--- NOTE | 2016-12-27 09:04 | Pharmacy Progress Note ---
Glycemic Control: Progress Nt Date of Service Dec 27, 2016. Scope Glycemic Pharmacist consulted by on 12/26/16 for glycemic control and to write orders per [facility] inpatient glycemic control protocol. Objective Accuchecks BSG (last 24hrs): Test 12/26/16 11:26 12/26/16 16:22 12/26/16 20:20 12/27/16 05:21 Bedside Glucose 130 mg/dl (70-99) 116 mg/dl (70-99) 157 mg/dl (70-99) Random Glucose 96 mg/dl (70-99) Test 12/27/16 07:53 Bedside Glucose 94 mg/dl (70-99) Laboratory Data (last 24hrs) Test 12/27/16 05:21 Anion Gap 8.0 mmol/L BUN/Creatinine Ratio 19.5 Blood Urea Nitrogen 27 mg/dl Creatinine 1.40 mg/dl Hemoglobin A1c 7.5 % Potassium Level 4.0 mmol/L Sodium Level 137 mmol/L HbA1c: Test 12/27/16 05:21 Hemoglobin A1c 7.5 % (4.5-5.6) H Recent Pertinent Medications Outpatient Anti-diabetic Regimen: * Metformin 500mg BIDM * A1c = 7.5 % from 12/27/16 Risk Factors for Insulin Resistance: * Infection: On Rocephin for ?UTI * IVF: NS at 125ml/hr * Diet: AHA/DM2 Assessment & Plan ASSESSMENT: 12/26/16: * 41yo T2DM male known to pharmacy from previous admissions/glycemic consults * Pt with sub-adequate control of diabetes per recent A1c > 8% Outpatient regimen will need adjusted at discharge * Patient with risk factors for hypoglycemia including: * BSGs below goal range on admission, 91, 94, 85mg/dl * Insulin naive * YOLA * Will add hold/half parameters to basal insulin orders to prevent hypoglycemia * Per previous admission in Nov 2016, patient required 0-30 units of insulin per day depending on PO intake. Will continue similar weight/stress based orders and adjust based on BSG trends. * ADA & AACE recommend a goal blood sugar range 140-180 mg/dl for the majority of critically ill & non-critically ill patients. However, more stringent targets may be selected in individual cases. Will utilize slightly more stringent goal range based on age. 12/27/16: * YOLA is resolving. CR: 2.4 --> 1.4. * Repeat A1c done today shows improvement in BSG control since last A1c done a few weeks ago. * He required very minimal insulin yesterday. TDD = 9units (all prandial coverage). * He has not required Lantus this admission. FBG this morning was 94 mg/dl. Will discontinue Lantus order. * Continue Novolog per current order. PLAN FOR INPATIENT GLYCEMIC CONTROL: * Holding outpatient oral diabetes medications- metformin should be held for YOLA. * Discontinue Lantus * Correctional Insulin with NOVOLOG per scale ACHS or Q6hrs while NPO * Goal Range: Low 120 mg/dL - High 160 mg/dL * Correction Factor: 30 mg/dL/unit * Carb ratio: 1 unit for every 10 grams of CHOs * Please note that the plan above was derived based on current level of insulin resistance and hospital stress. These recommendations are appropriate for inpatient admission only. Plan of care upon discharge will need to be reassessed to avoid potential outpatient hypo/hyperglycemia. Thank you.
[2016-12-27] MEDS: INSULIN ASPART 100 UNITS/ML 3 ML PEN SC SCH ×2 (09:34→12:42)
[2016-12-27] MEDS: NYSTATIN SUSP 500,000 U/5 ML UDC PO SCH ×2 (09:34→12:38)
[2016-12-27 11:31] VITALS: BP 126/67; PULSE 65; TEMP 36.7; O2SAT 96
--- NOTE | 2016-12-27 12:10 | Progress Note ---
Internal Med Progress Note Date of Service: Dec 27, 2016. Provider Documentation: SUBJECTIVE: Patient is doing better Denies any c/o headache, blurry vision, nausea, vomiting, Does have chronic low back pain, left sided (upper > lower weakness) No fever, chills, abdominal pain, cough, chest pain, SOB, worsening of weakness from last admission OBJECTIVE: Vital Signs-as noted below Exam: General-AAOX3, Fidgety/Anxious Eyes-No icterus Neck-Supple, No JVD Lungs-AEBE, no wheezing Heart-S1, S2 normal, no murmurs Abdomen-Soft, non tender, non distended, bs present Neuro-Cranial nerves intact, Power - 2/5 left upper ext, 4/5 lower extremity- left, Right 5/5 Ext- no edema Skin - tattoos + ASSESSMENT & PLAN: 41 year old M with recent post-op stroke and subsequent Lt upper arm disability who presents with chronic intractable headache and family unable to take care of him at home - for placement. YOLA - Improved Likely secondary to NSAID use/Volume depletion secondary to poor PO intake Patient does report not eating well and taking Ibuprofen 800 mg PO QID for last 1-2 weeks to control his headache. -IV fluids- decrease to 100 cc/hour -Avoid NSAIDS and nephrotoxic agents UTI -Risk factor: Urinary retention secondary to recent stroke -IV Rocephin q 24 hours (Day 2) -Urine c/s- follow up HEADACHE- Likely related to CVA - late effects CT head- negative for acute abnormalities, evolutionary changes from recent Rt MCA stroke, decreased left parietal scalp swelling -Avoid NSAIDs. Trial of fioricet HX OF RECENT MCA -RIGHT STROKE WITH RESIDUAL LEFT SIDED (UPPER > LEFT) WEAKNESS -Continue with ASA, Plavix -Work up- CT head- no acute findings, Neurological exam- improvement in weakenss -PT/OT URINARY RETENTION With recent stroke -Self catheterization at home until 1 week ago, but now has been urinating x 1 week per patient -Monitor HX OF CAD- Non obstructive -Per cath 2 Weeks ago. Toprol XL started at that time HTN- Recently taken off norvasc and lisinopril. Started on Toprol XL 2 weeks ago due to CAD -BP stable -Monitor DYSLIPIDEMIA -Continue with fenofibrate/Lipitor DM-III Hold Metformin, ISS, Lantus Pharmacy consult ASTHMA WITH NO EXACERBATION -Stable GERD -Continue with Protonix HX OF ALCOHOL ABUSE Says has not taken it for years and no drug abuse. -Ordered alcohol level, urine tox screen DVT PROPHYLAXIS Heparin SQ FULL CODE DISPOSITION PT/OT- Ordered Will need placement as family unable to take care of him and needs rehab post stroke, which he had refused during last admission. Agreeable to go to rehab this time. OK TO DISCHARGE FROM [facility], AWAITING PLACEMENT Vital Signs: Date Time Temp Pulse Resp B/P Pulse Ox O2 Delivery O2 Flow Rate FiO2 12/27/16 11:31 36.7 65 18 126/67 96 Room Air 12/27/16 08:01 36.9 63 18 119/78 96 Room Air 12/27/16 00:05 Room Air 12/26/16 23:49 36.9 54 20 115/64 97 Room Air 12/26/16 22:43 36.9 69 18 126/79 93 Room Air 12/26/16 21:00 Room Air 12/26/16 19:16 37.1 69 18 126/76 92 Room Air 12/26/16 16:08 Room Air 12/26/16 14:58 36.6 68 16 121/68 96 Room Air 12/26/16 13:04 36.6 87 16 142/80 96 Room Air Lab Results: Results Past 24 Hours Test 12/26/16 16:22 12/26/16 17:20 12/26/16 17:30 12/26/16 20:20 Range/Units Bedside Glucose 116 157 70-99 mg/dl Ethyl Alcohol mg/dL < 3.0 0-3 mg/dl Test 12/27/16 05:21 12/27/16 07:53 12/27/16 11:29 Range/Units Sodium Level 137 136-145 mmol/L Potassium Level 4.0 3.5-5.1 mmol/L Chloride Level 106 98-107 mmol/L Carbon Dioxide Level 23 21-32 mmol/L Anion Gap 8.0 3-11 mmol/L Blood Urea Nitrogen 27 7-18 mg/dl Creatinine 1.40 0.60-1.40 mg/dl Est Creatinine Clear Calc Drug Dose 83.4 ml/min Estimated GFR () 71.3 Estimated GFR (Non- 61.5 BUN/Creatinine Ratio 19.5 10-20 Random Glucose 96 70-99 mg/dl Estimated Average Glucose 169 mg/dl Hemoglobin A1c 7.5 4.5-5.6 % Calcium Level 8.2 8.5-10.1 mg/dl Bedside Glucose 94 132 70-99 mg/dl
[2016-12-27] MEDS ORDERED: OXYC15TA49 PO (14:28)
[2016-12-27] MEDS ORDERED: DIAZ-165 PO (14:28)
--- NOTE | 2016-12-27 14:30 | Discharge Instructions ---
Discharge Instructions Admission Reason for Admission: Headache Discharge Discharge Diagnosis / Problem: 1. YOLA 2. UTI (E coli) 3. Hx of recent stroke Discharge Goals Goal(s): Improve function, Increase independence, Improve disease control, Diagnostic testing, Therapeutic intervention, Prevent Disease Progression Activity Recommendations Activity Limitations: resume your previous activity (as tolerated- PT/OT recommended) . Instructions / Follow-Up Instructions / Follow-Up MEDICATION CHANGES: 1. New medication : Ciprofloxacin 500 mg PO BID x 5 more days to complete course of 7 days of antibiotics for E COLI UTI 2. Recommend judicious use of narcotics MONITOR -Creatinine- repeat BMP on 12/31/16 FOLLOW UP 1. With PCP in 1 week 2. With neurology as per schedule PT/OT recommended Current Hospital Diet Patient's current hospital diet: AHA Diet (Heart Healthy), Diabetes Type 2 Diet Discharge Diet Recommended Diet: AHA Diet (Heart Healthy), Low Sodium Diet (2gm Na), Diabetes Type 2 Diet Pending Studies Studies pending at discharge: no Laboratory Results Hemoglobin A1c Test 12/27/16 05:21 Range/Units Estimated Average Glucose 169 mg/dl Hemoglobin A1c 7.5 H 4.5-5.6 % Lipid Panel Test 12/06/16 11:14 Range/Units Triglycerides Level 570 H 0-150 mg/dl Cholesterol Level 229 H 0-200 mg/dl HDL Cholesterol 34 mg/dl Cholesterol/HDL Ratio 6.7 LDL Cholesterol, Calculated mg/dl Medical Emergencies . Who to Call and When: Medical Emergencies: If at any time you feel your situation is an emergency, please call 911 immediately. . Non-Emergent Contact Non-Emergency issues call your: Primary Care Provider . . "Provider Documentation" section prepared by Amanda Elaine. VTE Core Measure Inpt VTE Proph given/why not?: Unfractionated heparin SQ, SCD's
[2016-12-27] MEDS ORDERED: CPR500 PO (14:32)
--- NOTE | 2016-12-27 14:37 | Discharge Summary ---
Discharge Summary Date of Service Dec 27, 2016. Discharge Summary Admission Date: Dec 26, 2016 at 03:05 Discharge Date: Dec 27, 2016 Discharge Disposition: Rehab ([facility]) Principal Diagnosis: 1. YOLA likely secondary to NSAIDS/Volume depletion due to poor intake 2. UTI (E coli) secondary to un hygienic self catheterization 3. Hx of recent stroke with left sided hemiparesis (upper > lower) Secondary Diagnoses/Problems: 1. HTN 2. DM-2 3. Dyslipidemia 4. GERD 5. Hx of CAD 6. Asthma 7. Hx of alcohol abuse Procedures: IV Fluids CT head PT/OT Consultations: None Pending Studies/Follow-Up: Instructions / Follow-Up MEDICATION CHANGES: 1. New medication : Ciprofloxacin 500 mg PO BID x 5 more days to complete course of 7 days of antibiotics for E COLI UTI 2. Recommend judicious use of narcotics MONITOR -Creatinine- repeat BMP on 12/31/16 FOLLOW UP 1. With PCP in 1 week 2. With neurology as per schedule PT/OT recommended Medication Reconciliation New Medications: Ciprofloxacin (Ciprofloxacin HCl) 500 Mg Tab 500 MG PO BID for 7 Days Continued Medications: Aspirin (Aspirin Ec) 81 Mg Tab 81 MG PO DAILY Atorvastatin (Lipitor) 20 Mg Tab 20 MG PO DAILY for 90 Days, #90 TAB Budesonide/Formoterol Fumarate (Symbicort 160/4.5 Inhaler) 120 Puffs/ Aero 2 PUFFS INH BID Clopidogrel Bisulfate (Clopidogrel) 75 Mg Tab 75 MG PO QAM, #90 TAB Diazepam (Valium) 5 Mg Tab 5 MG PO QID, #30 (This prescription has been renewed) Dicyclomine HCl (Dicyclomine HCl) 10 Mg Cap 10 MG PO QID, #120 CAP 1 Refill Docusate Sodium (Stool Softener) 100 Mg Tab 100 MG PO TID PRN for Constipation Fenofibrate (Fenofibrate) 48 Mg Tab 48 MG PO DAILY, #90 TAB Fluticasone Propionate (Nasal) (Flonase Allergy Relief) 50 Mcg/Act Spr 2 SPRAYS CAROLEE DAILY Furosemide (Lasix) 20 Mg Tab 20 MG PO BID PRN for FLUID, TAB Gabapentin (Gabapentin) 400 Mg Cap 400 MG PO TID for 10 Days, #30 CAP Hydrochlorothiazide (Hydrochlorothiazide) 25 Mg Tab 25 MG PO DAILY for 30 Days, #30 TAB Metformin Hcl Er (Glucophage Er) 500 Mg Tab 500 MG PO BID Metoprolol Succinate (Metoprolol Succinate ER) 25 Mg Tabcr 25 MG PO QAM, #30 Montelukast Sodium (Singulair) 10 Mg Tab 10 MG PO DAILY Nystatin (Nystatin) 5 Ml Susp 5 ML PO QID for 30 Days Orphenadrine Citrate (Norflex) 100 Mg Tabcr 100 MG PO BID, TAB Oxycodone Hcl (Roxicodone) 15 Mg Tab 15 MG PO QID, #30 TAB (This prescription has been renewed) Pantoprazole (Pantoprazole Sodium) 40 Mg Tab 40 MG PO DAILY, #30 TAB Trazodone Hcl (Trazodone) 100 Mg Tab 300 MG PO HS Discontinued Medications: Ibuprofen (Motrin) 800 Mg Tab 800 MG PO DAILY PRN for Pain, TAB Potassium Ext Rel (Klor-Con) 20 Meq Tabcr 20 MEQ PO DAILY PRN for WHEN TAKING LASIX Admission Information HPI (per Admitting provider): 41 yoM who was recently admitted for chest pain, underwent a cath, did not have stents placed and suffered complications of stroke that left him without use of his left arm. He was sent home and since he has been there, he has been unable to care for himself. He cannot take his medications because he cannot open bottles and he has forgetfulness. He denies eating very much in the last few days because he isn't hungry. He also reports some R flank pain that is sharp and doesn't radiate which has been present since he stopped in/out cathing ( about 1 week ago). He also admits to some gross hematuria that has resolved, as well as some dysuria at the end of his voids. He reports requiring self- catheterization beginning two weeks ago in the hospital for acute urinary retention. He denies a h/o kidney stones, fevers, chills, chest pain, shortness of breath, nausea, vomiting or diarrhea. He does report intermittent blurry vision since the stroke and a persistent frontal headache for days to weeks. He reports a h/o headaches in the past that were similar and occurred twice weekly. He would take Ibuprofen for those, and reports taking high dose Ibuprofen 3-4 times daily for the past couple of weeks to try to rid his headache. He was scheduled to see an eye doctor for his vision because it impairs his ability to use his cell phone among other things, however, he was unable to get someone to drive him to the appointment. He states that he is currently from his and they are not living together. He states that his sister was living with him and helping him with his medications, but she was getting things wrong and then his landlord kicked her out. Physical Exam (per Admitting): GEN: WNWD, in no acute distress, alert and appropriate HEENT: NC/AT, PERRL, normal sclerae, EOMI CARDIO: reg rate, S1/2 heard without m/g/r LUNGS: CTA bilaterally, no crackles, rales or wheezes, good diaphragmatic excursion ABD: +BS, soft, non-tender, non-distended, no rebound or guarding, +CVA tenderness on the right EXTREMITY: RP and DP palpable 2+ bilat, no LE swelling or edema, extremities are warm and well-perfused LUE: can make some fist but has no hand strength, can adduct/abduct arm at shoulder somewhat, sensation intact LLE: 5/5 strength throughout with normal ROM, sensation intact NEURO: CN 2-12 intact, sensation intact throughout, (reflex) knee 2+ bilat MUSC: 5/5 strength throughout, no focal deficits SKIN: warm and dry Hospital Course 41 year old M with recent post-op stroke and subsequent Lt upper arm disability who presents with chronic intractable headache and family unable to take care of him at home - for placement. YOLA - Improved Likely secondary to NSAID use/Volume depletion secondary to poor PO intake Patient does report not eating well and taking Ibuprofen 800 mg PO QID for last 1-2 weeks to control his headache. -IV fluids- decreased to 100 cc/hour -Avoid NSAIDS and nephrotoxic agents -Repeat BMP on 12/31/16 - to follow up on creatinine UTI (E coli) -Risk factor: Urinary retention secondary to recent stroke and unhygenic self catheterization by himself -IV Rocephin q 24 hours (Day 2)--Change to PO Ciprofloxacin 500 mg PO BID X 5 more days to complete course of 7 days of antibiotics -Urine c/s- E coli. HEADACHE- Likely related to CVA - late effects CT head- negative for acute abnormalities, evolutionary changes from recent Rt MCA stroke, decreased left parietal scalp swelling -Avoid NSAIDs. Trial of fioricet HX OF RECENT MCA -RIGHT STROKE WITH RESIDUAL LEFT SIDED (UPPER > LEFT) WEAKNESS -Continue with ASA, Plavix -Work up- CT head- no acute findings, Neurological exam- improvement in weakenss -PT/OT recommended URINARY RETENTION With recent stroke -Self catheterization at home until 1 week ago, but now has been urinating x 1 week per patient -Monitor HX OF CAD- Non obstructive -Per cath 2 Weeks ago. Toprol XL started at that time HTN- Recently taken off norvasc and lisinopril. Started on Toprol XL 2 weeks ago due to CAD , On hctz at home -BP stable -Monitor DYSLIPIDEMIA -Continue with fenofibrate/Lipitor DM-III Hold Metformin, ISS, Lantus Pharmacy consult ASTHMA WITH NO EXACERBATION -Stable GERD -Continue with Protonix HX OF ALCOHOL ABUSE Says has not taken it for years and no drug abuse. -Ordered alcohol level, urine tox screen DVT PROPHYLAXIS Heparin SQ FULL CODE DISPOSITION PT/OT- Needs rehab Will need placement as family unable to take care of him and needs rehab post stroke, which he had refused during last admission. Agreeable to go to rehab this time. OK TO DISCHARGE TO [facility] TODAY Total time spent on discharge = 38 minutes This includes examination of the patient, discharge planning, medication reconciliation, and communication with other providers. Discharge Instructions Discharge Diagnosis / Problem: 1. YOLA 2. UTI (E coli) 3. Hx of recent stroke Discharge Goals Goal(s): Improve function, Increase independence, Improve disease control, Diagnostic testing, Therapeutic intervention, Prevent Disease Progression Activity Recommendations Activity Limitations: resume your previous activity (as tolerated- PT/OT recommended) . Instructions / Follow-Up Instructions / Follow-Up MEDICATION CHANGES: 1. New medication : Ciprofloxacin 500 mg PO BID x 5 more days to complete course of 7 days of antibiotics for E COLI UTI 2. Recommend judicious use of narcotics FOLLOW UP 1. With PCP in 1 week 2. With neurology as per schedule PT/OT recommended Current Hospital Diet Patient's current hospital diet: AHA Diet (Heart Healthy), Diabetes Type 2 Diet Discharge Diet Recommended Diet: AHA Diet (Heart Healthy), Low Sodium Diet (2gm Na), Diabetes Type 2 Diet Pending Studies Studies pending at discharge: no Laboratory Results Hemoglobin A1c Test 12/27/16 05:21 Range/Units Estimated Average Glucose 169 mg/dl Hemoglobin A1c 7.5 H 4.5-5.6 % Lipid Panel Test 12/06/16 11:14 Range/Units Triglycerides Level 570 H 0-150 mg/dl Cholesterol Level 229 H 0-200 mg/dl HDL Cholesterol 34 mg/dl Cholesterol/HDL Ratio 6.7 LDL Cholesterol, Calculated mg/dl Medical Emergencies . Who to Call and When: Medical Emergencies: If at any time you feel your situation is an emergency, please call 911 immediately. . Non-Emergent Contact Non-Emergency issues call your: Primary Care Provider . . "Provider Documentation" section prepared by Amanda Elaine. VTE Core Measure Inpt VTE Proph given/why not?: Unfractionated heparin SQ, SCD's
[2016-12-27 15:03] VITALS: BP 134/79; PULSE 67; TEMP 36.8; O2SAT 94
[2016-12-27 15:39] VITALS: BP 134/79; PULSE 67; TEMP 36.8; O2SAT 94
[2016-12-30 00:55] LABS: URCREATININE 94.1 MG/DL (>/= 20)
[2017-03-21] MEDS ORDERED: PANT40TA PO (15:49)
[2017-03-21] MEDS ORDERED: HYDR25TA5 PO (15:49)
[2017-03-21] MEDS ORDERED: ATOR-22 PO (15:49)
[2017-03-21] MEDS ORDERED: NYSS/ PO (15:49)
[2017-03-21] MEDS ORDERED: TPRSR25 PO (15:49)
[2017-05-23] MEDS ORDERED: ATOR-22 PO (13:22)
[2017-06-25] MEDS ORDERED: FLUT0.15 NAE (03:53)
[2017-06-25] MEDS ORDERED: CLOP1TAB15 PO (15:49)
[2017-06-25] MEDS ORDERED: GABA1CAP5 PO (15:49)
[2017-06-25] MEDS ORDERED: FENO48TA9 PO (15:49)
[2017-06-25] MEDS ORDERED: METF500T PO (15:57)
[2017-06-25] MEDS ORDERED: MONT1TAB3 PO (16:15)
[2017-06-25] MEDS ORDERED: QUET1TAB34 PO (18:50)
[2017-07-26] MEDS ORDERED: ASPI81TA28 PO (03:53)
== END 2016-12-27 16:00 | DRG 57 ==
LOC: ENRESERVTM → ENRESERVDT → EDBD 22:34 → C.EDB 22:36 → C.4E 12-26 03:05 → UNDOADMIN 12-26 03:05 → C.MED 12-26 22:12
PROVIDERS: ADMIT Hospitalist; ATTEND Internal Medicine
DX: I69.398 Other sequelae of cerebral infarction (principal); N17.9 Acute kidney failure, unspecified; I69.354 Hemiplegia and hemiparesis following cerebral infarction affecting left non-dominant side; N39.0 Urinary tract infection, site not specified; Z68.35 Body mass index [BMI] 35.0-35.9, adult; F41.9 Anxiety disorder, unspecified; F31.9 Bipolar disorder, unspecified; K21.9 Gastro-esophageal reflux disease without esophagitis; E66.9 Obesity, unspecified; I10 Essential (primary) hypertension; G47.33 Obstructive sleep apnea (adult) (pediatric); F17.210 Nicotine dependence, cigarettes, uncomplicated; Z83.3 Family history of diabetes mellitus; Z80.9 Family history of malignant neoplasm, unspecified; Z83.6 Family history of other diseases of the respiratory system; Z83.79 Family history of other diseases of the digestive system; Z84.1 Family history of disorders of kidney and ureter; Z82.49 Family history of ischemic heart disease and other diseases of the circulatory system; Z88.5 Allergy status to narcotic agent; Z79.82 Long term (current) use of aspirin; Z79.899 Other long term (current) drug therapy; Z79.84 Long term (current) use of oral hypoglycemic drugs; R33.9 Retention of urine, unspecified; I25.10 Atherosclerotic heart disease of native coronary artery without angina pectoris; E78.5 Hyperlipidemia, unspecified; J45.909 Unspecified asthma, uncomplicated; E86.1 Hypovolemia; B96.20 Unspecified Escherichia coli [E. coli] as the cause of diseases classified elsewhere; E11.9 Type 2 diabetes mellitus without complications; T39.395A Adverse effect of other nonsteroidal anti-inflammatory drugs [NSAID], initial encounter

== ENCOUNTER 2017-01-07 04:47 | Inpatient (IN) | payer OTHER ==
[~2017-01-07] VITALS: Ht 175.3 cm; Wt 110.0 kg
[~2017-01-07 04:47] MED LIST changes: -AMLO-110 PO; +CPR500 PO; -DRGTP12 TD; +FURO-85 PO; -GLIP-199 PO; +ORPH100T PO; -POTA20TA16 PO
--- NOTE | 2017-01-07 05:16 | EMERGENCY ROOM VISIT NOTE ---
History Report prepared by [place]: Gurwinder Yost Under the Supervision of: Dr. Ugo Prasad M.D. First contact with patient: 04:57 Chief Complaint: MENTAL HEALTH EVALUATION Stated Complaint: 302 History of Present Illness The patient is a 41 year old male who presents to the Emergency Room for a mental health evaluation. The patient was brought to the emergency department by state police after having a 302 petition signed by multiple family members shortly prior to arrival. The patient's family filed the 302 due to the patient stating that he was going to kill himself by not eating. He was also refusing to take his prescription medications. The patient left [facility] on Saturday, against medical advice, after being admitted secondary to overdosing on Ibuprofen. The patient denies making any type of suicidal threats and states that he does not eat so he can lose weight. He currently denies wanting to or hurt himself. Source of History: patient Onset: Shortly LMSW Position: other (Psych ) Quality: other (Mental Health Eval) Timing: worsening Note: Denies suicidal ideation Review of Systems See HPI for pertinent positives & negatives. A total of 10 systems reviewed and were otherwise negative. Past Medical & Surgical Medical Problems: (1) Anxiety (2) Asthma (3) Bipolar disorder (4) Diabetes mellitus type I (5) Dyslipidemia (6) GERD (gastroesophageal reflux disease) (7) HTN (hypertension) (8) Ischemic stroke (9) Obesity (10) JOSE (obstructive sleep apnea) Surgical Problems: (1) History of tonsillectomy and adenoidectomy (2) Hx of reconstruction of anterior cruciate ligament tear (3) S/P left knee arthroscopy Social History Problems: (1) Tobacco use Family History Diabetes mellitus FH: cancer FH: lung disease FHx: gallbladder disease FHx: heart disease Hypertension Kidney disease Kidney stones Social History Smoking Status: Never Smoker Alcohol Use: none Drug Use: none Marital Status: Housing Status: lives with family Occupation Status: disabled Current/Historical Medications Scheduled Aspirin (Aspirin Ec), 81 MG PO DAILY Atorvastatin (Lipitor), 20 MG PO DAILY Budesonide/Formoterol Fumarate (Symbicort 160/4.5 Inhaler), 2 PUFFS INH BID Clopidogrel Bisulfate (Clopidogrel), 75 MG PO QAM Diazepam (Valium), 5 MG PO QID Dicyclomine HCl (Dicyclomine HCl), 10 MG PO QID Fenofibrate (Fenofibrate), 48 MG PO DAILY Fluticasone Propionate (Nasal) (Flonase Allergy Relief), 2 SPRAYS CAROLEE DAILY Gabapentin (Gabapentin), 400 MG PO TID Hydrochlorothiazide (Hydrochlorothiazide), 25 MG PO DAILY Metformin Hcl Er (Glucophage Er), 500 MG PO BID Metoprolol Succinate (Metoprolol Succinate ER), 25 MG PO QAM Montelukast Sodium (Singulair), 10 MG PO DAILY Nystatin (Nystatin), 5 ML PO QID Orphenadrine Citrate (Norflex), 100 MG PO BID Oxycodone Hcl (Roxicodone), 15 MG PO QID Pantoprazole (Pantoprazole Sodium), 40 MG PO DAILY Trazodone Hcl (Trazodone), 300 MG PO HS Scheduled PRN Docusate Sodium (Stool Softener), 100 MG PO TID PRN for Constipation Furosemide (Lasix), 20 MG PO BID PRN for FLUID Allergies Coded Allergies: Hydrocodone (Verified Allergy, Unknown, hives, itching, 01/07/17) Tramadol (Unverified Allergy, Unknown, VOMITING, 01/07/17) Physical Exam Vital Signs Date Time Temp Pulse Resp B/P Pulse Ox O2 Delivery O2 Flow Rate FiO2 01/07/17 07:52 74 01/07/17 04:50 37.0 96 20 157/110 95 Room Air Physical Exam GENERAL: Patient is chronically unwell appearing and in minimal distress. There is tobacco over lips and chin. Weakness and ataxia of left upper extremity. Left lower facial droop. HEENT: No acute trauma, normocephalic atraumatic, mucous membranes moist, no nasal congestion, no scleral icterus. NECK: No stridor, no adenopathy, no meningismus, trachea is midline. LUNGS: No dyspnea. Clear to auscultation and equal bilaterally. No wheeze, no rhonchi. HEART: Regular rate and rhythm. No murmurs, rubs, gallops appreciated. ABDOMEN: Soft, nontender, bowel sounds positive, no masses appreciated, no peritonitis. BACK: No midline tenderness, no CVA tenderness EXTREMITIES: Normal motion all extremities, no cyanosis, no edema. NEUROLOGIC: Alert and oriented, no acute motor or sensory deficits, no focal weakness, cranial nerves grossly intact. SKIN: No rash, no jaundice, no diaphoresis. PSYCH: Admits depression, denies suicidal ideation, denies homicidal ideation. Medical Decision & Procedures Laboratory Results 01/07/17 05:25 Red Blood Count 3.77, Mean Corpuscular Volume 85.1, Mean Corpuscular Hemoglobin 29.2, Mean Corpuscular Hemoglobin Concent 34.3, Mean Platelet Volume 9.2, Neutrophils (%) (Auto) 48.3, Lymphocytes (%) (Auto) 38.6, Monocytes (%) (Auto) 6.3, Eosinophils (%) (Auto) 5.8, Basophils (%) (Auto) 0.8, Neutrophils # (Auto) 2.31, Lymphocytes # (Auto) 1.85, Monocytes # (Auto) 0.30, Eosinophils # (Auto) 0.28, Basophils # (Auto) 0.04 01/07/17 05:25 Test 01/07/17 05:25 01/07/17 05:50 White Blood Count 4.79 K/uL (4.8-10.8) Red Blood Count 3.77 M/uL (4.7-6.1) Hemoglobin 11.0 g/dL (14.0-18.0) Hematocrit 32.1 % (42-52) Mean Corpuscular Volume 85.1 fL (80-100) Mean Corpuscular Hemoglobin 29.2 pg (25-34) Mean Corpuscular Hemoglobin Concent 34.3 g/dl (32-36) Platelet Count 238 K/uL (130-400) Mean Platelet Volume 9.2 fL (7.4-10.4) Neutrophils (%) (Auto) 48.3 % Lymphocytes (%) (Auto) 38.6 % Monocytes (%) (Auto) 6.3 % Eosinophils (%) (Auto) 5.8 % Basophils (%) (Auto) 0.8 % Neutrophils # (Auto) 2.31 K/uL (1.4-6.5) Lymphocytes # (Auto) 1.85 K/uL (1.2-3.4) Monocytes # (Auto) 0.30 K/uL (0.11-0.59) Eosinophils # (Auto) 0.28 K/uL (0-0.5) Basophils # (Auto) 0.04 K/uL (0-0.2) RDW Standard Deviation 39.6 fL (36.4-46.3) RDW Coefficient of Variation 12.9 % (11.5-14.5) Immature Granulocyte % (Auto) 0.2 % Immature Granulocyte # (Auto) 0.01 K/uL (0.00-0.02) Anion Gap 9.0 mmol/L (3-11) Est Creatinine Clear Calc Drug Dose 78.4 ml/min Estimated GFR () 65.6 Estimated GFR (Non- 56.6 BUN/Creatinine Ratio 20.9 (10-20) Calcium Level 8.4 mg/dl (8.5-10.1) Total Bilirubin 0.3 mg/dl (0.2-1) Aspartate Amino Transf (AST/SGOT) 15 U/L (15-37) Alanine Aminotransferase (ALT/SGPT) 23 U/L (12-78) Alkaline Phosphatase 71 U/L (45-117) Total Protein 6.8 gm/dl (6.4-8.2) Albumin 3.8 gm/dl (3.4-5.0) Globulin 3.0 gm/dl (2.5-4.0) Albumin/Globulin Ratio 1.3 (0.9-2) Thyroid Stimulating Hormone (TSH) 1.630 uIu/ml (0.300-4.500) Salicylates Level < 1.7 mg/dl (2.8-20) Acetaminophen Level < 2 ug/ml (10-30) Ethyl Alcohol mg/dL < 3.0 mg/dl (0-3) Urine Color YELLOW Urine Appearance CLEAR (CLEAR) Urine pH 5.0 (4.5-7.5) Urine Specific [place] 1.014 (1.000-1.030) Urine Protein NEG (NEG) Urine Glucose (UA) NEG (NEG) Urine Ketones NEG (NEG) Urine Occult Blood 1+ (NEG) Urine Nitrite NEG (NEG) Urine Bilirubin NEG (NEG) Urine Urobilinogen NEG (NEG) Urine Leukocyte Esterase NEG (NEG) Urine WBC (Auto) 1-5 /hpf (0-5) Urine RBC (Auto) 10-30 /hpf (0-4) Urine Hyaline Casts (Auto) 1-5 /lpf (0-5) Urine Epithelial Cells (Auto) 10-20 /lpf (0-5) Urine Bacteria (Auto) NEG (NEG) Urine Opiates Screen NEG (NEG) Urine Methadone, Qualitative NEG (NEG) Urine Barbiturates POS (NEG) Urine Phencyclidine (PCP) Level NEG (NEG) Ur Amphetamine/Methamphetamine NEG (NEG) MDMA (Ecstasy) Screen NEG (NEG) Urine Benzodiazepines Screen POS (NEG) Urine Cocaine Metabolite NEG (NEG) Urine Marijuana (THC) NEG (NEG) Laboratory results as reviewed by me. ED Course 0459: The patient was evaluated in room A8. A complete history and physical exam was performed. 0636: I discussed the case with Dr. Jhaveri at this time, she agrees the patient cannot be sent home. 0730: This patient will be signed out to Dr. Bentley at change of shift. We are awaiting [facility] evaluation. Medical Decision Differential: Mood Disorder, Overdose, Infectious, Electrolyte Abnormality, Cardiac, Hepatic, Endocrine, Toxicologic, Neurologic, amongst other pathologies entertained. 41 yr old male with history of anxiety, bipolar disorder, HTN, Asthma, DMII, Tobacco use disorder, and recent stroke with minimal use of left arm and modest left sided neglect. In and out of hospital in the last few weeks after recent stroke. Was not caring for self 2 weeks ago and thus brought in for acute renal failure and neglect at that point. Transferred to Rehab facility where improving for several days before leaving 48 hours ago. Since then patient has been at home. Family filed 302 due to patient clearly not caring for self, not eating, hoarding medications, and making suicidal statements. Patient denies these claims currently though does admit he is quite depressed. Medically he is currently clear and should be stable for inpatient mental health treatment. Given he has already had episode where he took so poor care of himself he went in to renal failure 2 weeks ago, I do not feel it would be appropriate to disregard this 302. I furthermore discussed case with cardiopulmonary supervisor Psychiatrist Dr Jhaveri who agrees that patient will likely need inpatient psychiatric evaluation/ observation. I have signed out patient to Dr Bentley awaiting CAN help evaluation. Morning medications ordered for patient per most recent discharge information. Consults Time Called: [phone] Consulting Physician: Dr. Jhaveri - Psychiatrist Returned Call: 06 I discussed the case with Dr. Jhaveri at this time, she agrees the patient cannot be sent home. Impression Primary Impression: Depression Additional Impressions: Self neglect Insufficient intake of food and water due to self neglect Scribe Attestation The scribe's documentation has been prepared under my direction and personally reviewed by me in its entirety. I confirm that the note above accurately reflects all work, treatment, procedures, and medical decision making performed by me. Departure Information Dispostion Still a Patient (Patient will be signed out to Dr. Bentley) Referrals No Doctor, Assigned (PCP) Patient Instructions My [facility] Problem Qualifiers Primary Impression: Depression Depression Type: major depressive disorder Major depression recurrence: recurrent Active/Remission status: currently active Major depression episode severity: severe Psychotic features: without psychotic features Qualified Codes: F33.2 - Major depressive disorder, recurrent severe without psychotic features
[2017-01-07 05:33] LABS: BASO % 0.8 %; BASO ABS # 0.04 K/uL (0-0.2); COMPLETE YES; EOS % 5.8 %; HEMATOCRIT 32.1 % (42-52); IG% 0.2 %; LYMPH % 38.6 %; LYMPH ABS # 1.85 K/uL (1.2-3.4); MEAN CELL VOLUME 85.1 fL (80-100); MEAN CORPUSCULAR HEMOGLOBIN 29.2 pg (25-34); MEAN CORPUSCULAR HGB CONC 34.3 g/dl (32-36); MEAN PLATELET VOLUME 9.2 fL (7.4-10.4); MONO % 6.3 %; NEUT % 48.3 %; PLATELET COUNT 238 K/uL (130-400); RED BLOOD COUNT 3.77 M/uL (4.7-6.1); WHITE BLOOD COUNT 4.79 K/uL (4.8-10.8)
[2017-01-07 05:52] LABS: BUN/CREATININE RATIO 20.9 (10-20); CALCIUM 8.4 mg/dl (8.5-10.1); CREATININE 1.5 mg/dl (0.60-1.40); POTASSIUM 3.6 mmol/L (3.5-5.1)
[2017-01-07 05:53] LABS: ACETAMINOPHEN < 2 ug/ml (10-30)
[2017-01-07 06:02] LABS: ALB/GLOB RATIO 1.3 (0.9-2); THYROID STIMULATING HORMONE 1.63 uIu/ml (0.300-4.500)
[2017-01-07 06:54] LABS: URINE APPEARANCE CLEAR (CLEAR); URINE BILIRUBIN NEG (NEG); URINE COLOR YELLOW; URINE NITRITE NEG (NEG); URINE SPECIFIC GRAVITY 1.014 (1.000-1.030); UROBILINOGEN NEG (NEG)
[2017-01-07 06:55] LABS: MANUAL MICROSCOPIC REQUIRED? NO; REVIEW REQ? NO; ZZUR CULT IF INDIC CLEAN CATCH NO
[2017-01-07 07:00] LABS: BENZODIAZEPINE, URINE POS (NEG); COCAINE,URINE NEG (NEG); PHENCYCLIDINE, URINE NEG (NEG)
[2017-01-07] MEDS ORDERED: OXYCODONE HCL IR 5 MG TAB (IMMEDIATE RELEASE) PO PRN (07:45)
[2017-01-07] MEDS ORDERED: DOCUSATE SODIUM 100 MG CAP PO PRN ×2 (07:45→13:45)
[2017-01-07] MEDS ORDERED: DIAZEPAM 5MG TAB PO PRN (07:45)
[2017-01-07] MEDS ORDERED: SODIUM CHLORIDE 0.9% 1000ML 1,000 ML IV STA (07:58)
[2017-01-07] MEDS ORDERED: ASPIRIN 81 MG CHEW PO SCH (09:00)
[2017-01-07] MEDS ORDERED: HYDROCHLOROTHIAZIDE 25 MG TAB PO SCH (09:00)
[2017-01-07] MEDS ORDERED: BUDESONIDE/FORMOTEROL FUMARATE 160/4.5 60 PUFFS/INHALER INH SCH (09:00)
[2017-01-07] MEDS ORDERED: DICYCLOMINE HCL 10 MG CAP PO ONE (09:00)
[2017-01-07] MEDS ORDERED: METFORMIN HCL 500 MG TABCR PO SCH (09:00)
[2017-01-07] MEDS ORDERED: PANTOprazole SOD 40 MG TAB PO SCH (09:00)
[2017-01-07] MEDS ORDERED: FENOFIBRATE 48 MG TAB PO SCH (09:00)
[2017-01-07] MEDS ORDERED: CLOPIDOGREL BISULFATE 75 MG TAB PO SCH (09:00)
[2017-01-07] MEDS ORDERED: METOPROLOL SUCC 25MG EXT REL TAB PO SCH (09:00)
[2017-01-07] MEDS ORDERED: ATORVASTATIN 20 MG TAB PO SCH (09:00)
[2017-01-07] MEDS: NYSTATIN SUSP 500,000 U/5 ML UDC PO SCH ×4 (09:01→21:06)
[2017-01-07] MEDS: GABAPENTIN 400 MG CAP PO SCH ×3 (09:03→21:06)
--- NOTE | 2017-01-07 10:28 | EMERGENCY ROOM VISIT NOTE ---
ED Visit Note 41-year-old male with depression was fully evaluated by Dr. Prasad and signed off to me at change of shift. I reevaluated the patient at 1025. The patient does admit to depression but denies suicidality. The patient is willing to come into the hospital on a voluntary basis but on review of recent admissions we found that he has been signing out AMA and not receiving adequate treatment. In light of that he will be 302'd to make sure he gets proper psych eval and treatment and is observed for suicidal ideation.
[2017-01-07] MEDS ORDERED: BISMUTH SUBSALICYLATE PER ML OMNICELL CHARGE PO PRN (13:45)
[2017-01-07] MEDS ORDERED: MAGNESIUM HYDROXIDE SUSP 30 ML UDC PO PRN (13:45)
[2017-01-07] MEDS ORDERED: hydrOXYzine HCL 25 MG TAB PO PRN (13:45)
[2017-01-07] MEDS ORDERED: SODIUM CHLORIDE 0.65% NA SOLN 45 ML (OCEAN) PRN (13:45)
[2017-01-07] MEDS ORDERED: FUROSEMIDE 20 MG TAB PO PRN (13:45)
[2017-01-07] MEDS ORDERED: ALUMINUM/MAGNESIUM SUSP 30 ML UDC PO PRN (13:45)
[2017-01-07 14:57] VITALS: O2SAT 96
[2017-01-07] MEDS ORDERED: DICY10CA55 PO (15:49)
[2017-01-07] MEDS ORDERED: OXYC15TA89 PO (15:49)
[2017-01-07] MEDS ORDERED: DIAZ-165 PO (15:49)
[2017-01-07] MEDS ORDERED: OXYC1TAB3 PO (15:54)
[2017-01-07 16:04] VITALS: BP 127/78; PULSE 67; TEMP 37; BMI 35.8
[2017-01-07] MEDS: DIAZEPAM 5MG TAB PO SCH ×2 (17:20→21:07)
[2017-01-07] MEDS: DICYCLOMINE HCL 10 MG CAP PO SCH ×2 (17:20→21:06)
[2017-01-07] MEDS: OXYCODONE HCL IR 5 MG TAB (IMMEDIATE RELEASE) PO SCH ×2 (17:21→21:07)
[2017-01-07] MEDS ORDERED: TRAZODONE HCL 100 MG TAB PO SCH (21:00)
[2017-01-07] MEDS: BUDESONIDE/FORMOTEROL FUMARATE 160/4.5 60 PUFFS/INHALER INH SCH (21:05)
[2017-01-07] MEDS: METFORMIN HCL 500 MG TABCR PO SCH (21:06)
[2017-01-07] MEDS: TRAZODONE HCL 100 MG TAB PO SCH (21:06)
[2017-01-07] MEDS: ORPHENADRINE CITRATE 100 MG TABCR PO SCH (21:06)
[2017-01-08 07:04] VITALS: BP 135/82; PULSE 80; TEMP 36.9
[2017-01-08] MEDS: OXYCODONE HCL IR 5 MG TAB (IMMEDIATE RELEASE) PO SCH ×4 (08:28→21:57)
[2017-01-08] MEDS: DIAZEPAM 5MG TAB PO SCH ×4 (08:28→21:55)
[2017-01-08] MEDS: BUDESONIDE/FORMOTEROL FUMARATE 160/4.5 60 PUFFS/INHALER INH SCH ×2 (08:29→21:54)
[2017-01-08] MEDS: FLUTICASONE PROPIONATE NA SPR 16 GM BTL NAE SCH (08:29)
[2017-01-08] MEDS: ASPIRIN 81 MG ECTAB PO SCH (08:29)
[2017-01-08] MEDS: DICYCLOMINE HCL 10 MG CAP PO SCH ×4 (08:29→21:54)
[2017-01-08] MEDS: ATORVASTATIN 20 MG TAB PO SCH (08:30)
[2017-01-08] MEDS: HYDROCHLOROTHIAZIDE 25 MG TAB PO SCH (08:30)
[2017-01-08] MEDS: GABAPENTIN 400 MG CAP PO SCH ×3 (08:30→21:55)
[2017-01-08] MEDS: METFORMIN HCL 500 MG TABCR PO SCH (08:30)
[2017-01-08] MEDS: NYSTATIN SUSP 500,000 U/5 ML UDC PO SCH ×4 (08:30→21:55)
[2017-01-08] MEDS: CLOPIDOGREL BISULFATE 75 MG TAB PO SCH (08:30)
[2017-01-08] MEDS: ORPHENADRINE CITRATE 100 MG TABCR PO SCH ×2 (08:30→21:55)
[2017-01-08] MEDS: METOPROLOL SUCC 25MG EXT REL TAB PO SCH (08:31)
[2017-01-08] MEDS: PANTOprazole SOD 40 MG TAB PO SCH (08:31)
[2017-01-08] MEDS: FENOFIBRATE 48 MG TAB PO SCH (08:31)
[2017-01-08] MEDS: MONTELUKAST SOD 10 MG TAB PO SCH (08:32)
[2017-01-08] MEDS ORDERED: PHARMACY GLYCEMIC MGMT CONSULT PRN (09:36)
[2017-01-08] MEDS ORDERED: INSULIN ASPART 100 UNITS/ML 3 ML PEN SC ONE (10:00)
[2017-01-08] MEDS ORDERED: DEXTROSE 50% 50 ML SYR IV PRN (10:00)
[2017-01-08] MEDS ORDERED: GLUCOSE 10 TABS/TUBE PO PRN (10:00)
[2017-01-08] MEDS ORDERED: GLUCOSE 40% GEL 15 GM TUBE PO PRN (10:00)
[2017-01-08] MEDS ORDERED: GLUCAGON FOR INJ 1 MG VIAL SQ PRN (10:00)
--- NOTE | 2017-01-08 10:06 | Pharmacy Progress Note ---
Glycemic Control Intl Consult Date of Service Jan 08, 2017. Scope Glycemic Pharmacist consulted by Dr Jhaveri on 01/08/17 for glycemic control and to write orders per [facility] inpatient glycemic control protocol Objective Weight (Kilograms): 110.000 Accuchecks BSG (last 24hrs): Test 01/08/17 08:35 Bedside Glucose 363 mg/dl (70-99) HbA1c Hemoglobin A1c Test 12/27/16 05:21 Range/Units Estimated Average Glucose 169 mg/dl Hemoglobin A1c 7.5 H 4.5-5.6 % Recent Pertinent Medications Outpatient Anti-diabetic Regimen: * Metformin ER 500mg PO BID * A1c = 7.5 % 12/27/16 The patient is currently receiving: * Oral Agents: Metformin ER 500mg PO BID Risk Factors for Insulin Resistance: * Diet: Type 1 DM Assessment & Plan ASSESSMENT: * 41 yo Type 2 DM admitted yesterday for mental health evaluation. Patient was reported by family to be trying to kill himself by not eating and not taking his medications. * Random BSG this AM = 363mg/dL. * Patient known to pharmacy glycemic service from October 2016, well controlled , will begin with this regimen. * Current diet is Type 1, I will continue this for now, as he only ate 25% of his breakfast and this diet which is higher in CHO has likely not contributed to hyperglycemia, but will continue to monitor and consider changing to Type 2 DM as necessary. * ADA & AACE recommend a goal blood sugar range 140-180 mg/dl for the majority of critically ill & non-critically ill patients. However, more stringent targets may be selected in individual cases. I will use 100-140mg/dl for patient 's age and A1c. PLAN FOR INPATIENT GLYCEMIC CONTROL: * Continue Metformin ER 500mg PO BID * Correctional Insulin with NOVOLOG per scale ACHS or Q6hrs while NPO * Goal Range: Low 100 mg/dL - High 140 mg/dL * Correction Factor: 30 mg/dL/unit * Nutritional / Prandial insulin per carb ratio of 1 unit per 10 grams CHO consumed DISCHARGE RECOMMENDATIONS: * A1c = 7.5% is suboptimal control for patient's age, consider adding an additional oral agent (perhaps a sulfonylurea) upon discharge if patient is willing, although managing mental health state is priority at this time. * Please note that the plan above was derived based on current level of insulin resistance and hospital stress. These recommendations are appropriate for inpatient admission only. Plan of care upon discharge will need to be reassessed to avoid potential outpatient hypo/hyperglycemia. Thank you.
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
[2017-01-08] MEDS: INSULIN ASPART 100 UNITS/ML 3 ML PEN SC SCH ×3 (13:16→21:52)
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
[2017-01-08 16:02] VITALS: BMI 35.8
[2017-01-08] MEDS: METFORMIN HCL 500 MG TAB PO SCH (18:16)
[2017-01-08] MEDS: TRAZODONE HCL 100 MG TAB PO SCH (21:55)
[2017-01-09 06:45] VITALS: BP 123/75; PULSE 79; TEMP 36.7
[2017-01-09] MEDS: ASPIRIN 81 MG ECTAB PO SCH (08:03)
[2017-01-09] MEDS: FLUTICASONE PROPIONATE NA SPR 16 GM BTL NAE SCH (08:03)
[2017-01-09] MEDS: BUDESONIDE/FORMOTEROL FUMARATE 160/4.5 60 PUFFS/INHALER INH SCH ×2 (08:03→21:27)
[2017-01-09] MEDS: DICYCLOMINE HCL 10 MG CAP PO SCH ×4 (08:03→21:29)
[2017-01-09] MEDS: PANTOprazole SOD 40 MG TAB PO SCH (08:04)
[2017-01-09] MEDS: GABAPENTIN 400 MG CAP PO SCH ×3 (08:04→21:29)
[2017-01-09] MEDS: ORPHENADRINE CITRATE 100 MG TABCR PO SCH ×2 (08:04→21:30)
[2017-01-09] MEDS: ATORVASTATIN 20 MG TAB PO SCH (08:04)
[2017-01-09] MEDS: HYDROCHLOROTHIAZIDE 25 MG TAB PO SCH (08:04)
[2017-01-09] MEDS: CLOPIDOGREL BISULFATE 75 MG TAB PO SCH (08:04)
[2017-01-09] MEDS: NYSTATIN SUSP 500,000 U/5 ML UDC PO SCH ×4 (08:04→21:29)
[2017-01-09] MEDS: FENOFIBRATE 48 MG TAB PO SCH (08:05)
[2017-01-09] MEDS: METOPROLOL SUCC 25MG EXT REL TAB PO SCH (08:05)
[2017-01-09] MEDS: MONTELUKAST SOD 10 MG TAB PO SCH (08:05)
[2017-01-09] MEDS: DIAZEPAM 5MG TAB PO SCH ×4 (08:07→21:32)
[2017-01-09] MEDS: OXYCODONE HCL IR 5 MG TAB (IMMEDIATE RELEASE) PO SCH ×4 (08:09→21:32)
[2017-01-09] MEDS: METFORMIN HCL 500 MG TAB PO SCH ×2 (08:09→17:02)
[2017-01-09] MEDS: INSULIN ASPART 100 UNITS/ML 3 ML PEN SC SCH ×4 (09:02→21:37)
--- NOTE | 2017-01-09 11:32 | Psychiatric Progress Notes ---
Progress Note Date of Service Jan 09, 2017. Interval History Gerber Ryan is a 41-year-old gentleman from [place], [place], admitted to our unit on a 302 involuntary commitment having made statements of suicide to stop eating and taking his meds to . Chief Complaint "I quit eating". Subjective Patient was seen & assessed interval progress reviewed with Treatment Team. Staff report he has refused all groups, refused to sign releases for family or friends were involved in his admission and had expressed concerns about his safety at home, and refused to sign releases for [facility] so that records could be obtained from his recent stay there. He is expressing depressed mood and hopelessness, telling staff that "I'm all alone in the world. I don't have nobody." He refused recommendations to set up a family meeting to attempt to assess his supports at home. He required staff assistance to catheterize himself, and required assistance opening packages, and to get dressed. He is eating here, but choked on an apple. His blood sugar was significantly elevated at 363 yesterday, and the diabetic pharmacist has been consulted and is managing his insulin. He is refusing to take insulin at home, and is unable to review the risks of noncompliance with his diabetes treatment. Today he is seen in his room, where he is lying in bed. He has significant difficulty just sitting up. He is a limited historian, and when asked about his admission, repeatedly states "I quit eating." When asked to clarify this further, he simply repeats "quit about eating, I didn't quit eating, I said about quit eating, I don't know. Said I quit eating to make 'em all happy." He cannot say who he means by "them." He continues to refuse to allow us to speak with any of his friends or family members, and cannot explain what his plan would be if he were to be discharged from the hospital. He states he had people helping him at home, but initially cannot tell me who these people were, and ultimately says a woman named Kim was helping him, who is also the individual who petitioned for his commitment. When asked about the allegations in the petition , including that he threatened to stop eating and taking medications in order to , he admits that he did say this. He shows no insight into the risks of this behavior, including untreated diabetes and renal failure. He denies suicidality today. He admits that he does not follow up on many of the recommendations to manage his multiple medical conditions. When asked about the allegations that he had been saving pain medications while in [facility] and brought them home and then abused them, he admits to taking "4 or 5" extra medications, both pain medications and [id number] sleep medications, stating he hasn't been able to sleep well. Petitioning statement also states that he is not taking his prescribed medications at home, was trying to hide the medicines instead of taking them that they were found under the bed, and was abusing pain medications and sleep medications. He is not able to describe in-home services that would help him to be successful at home, getting only vague answers as to what services were arranged for him. He admits that mood is low, but is refusing to attend any groups or activities on the unit, stating he doesn't like being around people. Attempted to explain the 303 commitment process and hearing, and he did not appear to understand it. Sleep Information Total Hours of Sleep: 7.25 Meal Information Percent of Breakfast Consumed: 100 Percent of Lunch Consumed: 10 Percent of Dinner Consumed: 100 Mental Status Exam During interview pt is: alert and oriented (to self and place), other ( partially cooperative, very limited historian due to cognitive limitations) Appearance: disheveled, other (obese, pants falling down exposing himself, unkempt) Eye contact is: poor Motor behavior is: other (difficulty moving) Speech: other (minimal and slurred on a difficult to understand) Affect: depressed, constricted Mood is: other ("not that good") Thought process: concrete Suicidal thought are: denied (admits made suicidal statements prior to admission, was not taking medications or eating) Homicidal thoughts are: denied Hallucinations: denies auditory Cognition: other (memory and attention are impaired) Intelligence estimated to be: below average Insight: severely impaired Judgement: severely impaired Impression RISK ASSESSMENT: 1. Risk factors -- male, , single, lives alone, multiple serious medical conditions, chronic mental illness, chronic noncompliance, history of previous hospitalizations, abusing medications, and anxiety. 2. Protective factors -- no access to guns, has friends he feels he can rely on , and willingness to get back into outpatient treatment. IMPRESSION: A 41-year-old gentleman admitted to our unit on a 302 involuntary commitment after having made suicidal statements with a plan to a friend, misusing pain medications, refusing to take medications for his multiple medical conditions, and poor oral intake and a suicide attempt. Here, he is trying to minimize that saying he has passive thoughts that he would be better off , but denies that he is acting out to end his life. He is a difficult historian and he does not appear to understand the severity of his medical conditions. As previously stated, he makes multiple statements about what he will and will not do and does not seem to appreciate the severity of his medical conditions. He says that he attended a special education curriculum when he was in school and likely has low IQ, suspect mild to moderate ID. I think that we need to spend time assessing his family and home situation, determining who may be of assistance to him, as he continues to refuse residential or inpatient rehabilitation, and due to his impairment status post stroke, he is not able to care for himself and he is clearly making very bad decisions regarding his medications, diet, etc. We will need to get old records from [facility] to determine what mood stabilizers and antidepressants he has been on in the past, as well as recent records from [facility] where he reportedly left AGAINST MEDICAL ADVICE several days prior to admission. He might benefit from an antidepressant to target his mood and in the context of his multiple medical conditions; however, I am not sure if he has a history of being activated on unopposed antidepressants in the past. He is not willing to take any medications to put on weight, which limit our choice of mood stabilizers. I think our first step is to gather more information about what treatment he had in the past, get his family and friends in for a meeting to determine what resources we have to work with. DIAGNOSES: 1. Bipolar disorder by the patient report, not otherwise specified, current episode depressed. 2. Intellectual disability, suspect mild to moderate. 3. Hypertension. 4. Diabetes. 5. Gastroesophageal reflux disease. 6. Obesity. 7. Obstructive sleep apnea. 8. Status post cerebrovascular accident in December 2016. 9. Tobacco dependence. 10. Noncompliance with treatment 11. Rule out opiate abuse Plan (1) Suicidal ideation Suicide checks for safety. Monitor oral intake and kidney function, as patient had not been eating or drinking prior to admission in an attempt to end his life, and showed signs of dehydration on laboratories. Encourage the patient to attend and participate in group and individual counseling. Family meeting with petitioner or other family member/support person - he is refusing. (2) Bipolar disorder 01/08 -He is currently on Neurontin 400 mg t.i.d. for back pain, which could serve as a very weak mood stabilizer. We will need to get records from [facility] to determine past medication trials. -Would like to start an SSRI, but would like to see the records regarding his history with SSRIs in the past. -Encourage good sleep-wake cycles. -Coordinate with Alondra with whom he supposedly has an appointment this week. 01/09 - Refusing to sign ROIs for [facility] or friends/family. Will file for 303 with hearing tomorrow as is depressed and overdosing on meds, refused to eat and drink with threats of suicide and had kidney dysfunction on admission due to dehydration, refusing to care for multiple medical problems and refused to take medications as prescribed or seek appropriate levels of care, and unable to care for his basic needs independently. (3) Intellectual disability (4) Insufficient intake of food and water due to self neglect 01/09 - Creatinine and BUN elevated on admission. Patient eating some here, will recheck labs today. (5) HTN (hypertension) Continue hydrochlorothiazide, metoprolol, and Lasix p.r.n. Monitor BPs. (6) Chronic pain Query PDMP site to confirm dosing of narcotics. His last few Rxs were from inpatient doctors. Unclear if he has an outpatient prescriber for narcotics. Per 302 petition, he was cheeking pain pills in the hospital and brought them home, then was abusing them at home. His UDS was negative for benzos on admission, indicating that he was not taking them as prescribed. He filled a 5 day prescription for oxycodone from Dr. Caro on 01/04/17, so should have bad enough to last him through 01/09, but on admission 01/07 UDS was negative for opiates (but positive for benzos and barbiturates). Nursing to do mouth checks here, and will coordinate with outpatient providers due to concerns for opiate abuse. 01/09 - After review of above information, will decrease dose of oxycodone to 10mg qid and monitor closely for cheeking/diversion. (7) Obesity Dietary consult to help the patient makes food choices with respect to all of his medical conditions. (8) Asthma (9) Diabetes mellitus type I Diabetic diet. Continue home meds and insulin sliding scale. He is refusing to take insulin at home, although it has been recommended. Consult diabetic pharmacist. Consider need for hospitalist consult. (10) Ischemic stroke - PT/OT consults for treatment here and recommendations for disposition/level of care needed at discharge. Reportedly left [facility] last week. Would like to review their records, but he refused to sign an LIZA. - Assist the patient with ADLs as necessary. - The patient has trouble voiding and self caths at home. We will monitor I\\T\\ O. - Continue home medications including Plavix and aspirin. (11) Nicotine addiction Encourage the patient to reduce or quit. We will offered nicotine patch or Nicorette gum p.r.n. (12) Dyslipidemia Continue Lipitor and Tricor at home dosing. Discharge / Aftercare Planning Primary Care Physician: Name: Jaxson Eldridge PA-C Psychiatrist: Name: Kim Therapist: Name: Kim Date of Appointment: Jan 09, 2017 Visit Code E&M Code: 78146 Data Vital Signs Last 24 Hrs: Date Time Temp Pulse Resp B/P Pulse Ox O2 Delivery O2 Flow Rate FiO2 01/09/17 06:45 36.7 79 16 123/75 Meds Administered Last 24 Hrs: Meds Administered (Past 24Hrs) Medications (Trade) Dose Ordered Sig/Ney Route Start Time Stop Time Status Last Admin Dose Admin Aspirin (Ecotrin Tab) 81 mg DAILY PO 01/08/17 09:00 02/07/17 08:59 01/09/17 08:03 81 MG Atorvastatin Calcium (Lipitor Tab) 20 mg DAILY PO 01/08/17 09:00 02/07/17 08:59 01/09/17 08:04 20 MG Budesonide/ Formoterol Fumarate (Symbicort 160/ 4.5 Inh) 2 puffs BID INH 01/07/17 21:00 02/06/17 20:59 01/09/17 08:03 2 PUFFS Clopidogrel Bisulfate (plAVix TAB) 75 mg QAM PO 01/08/17 09:00 4/6/17 08:59 01/09/17 08:04 75 MG Diazepam (Valium Tab) 5 mg QID PO 01/07/17 17:00 02/06/17 16:59 01/09/17 08:07 5 MG Dicyclomine HCl (Bentyl Cap) 10 mg QID PO 01/07/17 17:00 02/06/17 16:59 01/09/17 08:03 10 MG Fenofibrate (Tricor Tab) 48 mg DAILY PO 01/08/17 09:00 02/07/17 08:59 01/09/17 08:05 48 MG Fluticasone Propionate (Flonase Nasal [place]) 2 sprays DAILY CAROLEE 01/08/17 09:00 02/07/17 08:59 01/09/17 08:03 2 SPRAYS Gabapentin (Neurontin Cap) 400 mg TID PO 01/07/17 21:00 02/06/17 20:59 01/09/17 08:04 400 MG Hydrochlorothiazide (Hydrochlorothiazide Tab) 25 mg DAILY PO 01/08/17 09:00 02/07/17 08:59 01/09/17 08:04 25 MG Metformin HCl (Glucophage Extended Rel Tab) 500 mg BID PO 01/07/17 21:00 01/08/17 15:53 DC 01/08/17 08:30 500 MG Metoprolol Succinate (Toprol Xl Tab) 25 mg QAM PO 01/08/17 09:00 02/07/17 08:59 01/09/17 08:05 25 MG Montelukast Sodium (Singulair Tab) 10 mg DAILY PO 01/08/17 09:00 02/07/17 08:59 01/09/17 08:05 10 MG Nystatin (Mycostatin Susp) 5 ml QID PO 01/07/17 17:00 01/26/17 16:59 01/09/17 08:04 5 ML Orphenadrine Citrate (Norflex Tab) 100 mg BID PO 01/07/17 21:00 02/06/17 20:59 01/09/17 08:04 100 MG Oxycodone HCl (Roxicodone Immediate Rel Tab) 15 mg QID PO 01/07/17 17:00 01/21/17 16:59 01/09/17 08:09 15 MG Pantoprazole Sodium (Protonix Tab) 40 mg DAILY PO 01/08/17 09:00 02/07/17 08:59 01/09/17 08:04 40 MG Trazodone HCl (Desyrel Tab) 300 mg HS PO 01/07/17 21:00 02/06/17 20:59 01/08/17 21:55 300 MG Insulin Aspart (novoLOG ASPART) SLIDING SCALE ACHS SC 01/08/17 12:00 02/07/17 11:59 01/09/17 09:02 6 UNITS Metformin HCl (Glucophage Tab) 500 mg BIDM PO 01/08/17 17:45 02/07/17 17:44 01/09/17 08:09 500 MG Lab Results Last 24 Hrs: Last 24 Hours Test 01/08/17 12:43 01/08/17 18:08 01/08/17 21:04 01/09/17 07:59 Bedside Glucose 194 mg/dl 340 mg/dl 92 mg/dl 107 mg/dl
[2017-01-09 12:26] VITALS: Ht 175.3 cm; Wt 110.0 kg
[2017-01-09 12:34] LABS: BUN/CREATININE RATIO 18.1 (10-20); CALCIUM 9.2 mg/dl (8.5-10.1); CREATININE 1.5 mg/dl (0.60-1.40)
[2017-01-09] MEDS: TRAZODONE HCL 100 MG TAB PO SCH (21:28)
[2017-01-10 06:49] VITALS: BP 118/73; PULSE 78; TEMP 36.6
[2017-01-10] MEDS: INSULIN ASPART 100 UNITS/ML 3 ML PEN SC SCH ×4 (08:00→21:32)
--- NOTE | 2017-01-10 08:07 | Psychiatric Progress Notes ---
Progress Note Date of Service Jan 10, 2017. Interval History Gerber Ryan is a 41-year-old gentleman from [place], [place], admitted to our unit on a 302 involuntary commitment having made statements of suicide to stop eating and taking his meds to . Chief Complaint "Good". Subjective Patient was seen & assessed interval progress reviewed with nursing. Staff report he has started going to groups, but is not participating. He showered with staff assistance. He saw PT and OT who recommended inpatient rehab at [facility] or 27/05 care at home. He is being followed by the diabetic pharmacist and is getting insulin here, but is refusing to take it outside the hospital. Staff have attempted to get records form his PCP and [facility], but they have not yet been received. His PRP was checked and BUN and creatinine remain elevated, but he is eating and drinking here. Spoke to his friend Kim who was the 302 petitioner; she states she is a friend of his daughter and picked him up at [facility] and was staying with him in his home for 2 days until he was admitted to the hospital again. She says he was angry and uncooperative when she picked him up at [facility], and that no in home services were in place to her knowledge. She stayed with him at his home over the weekend and no other people were there helping. She states he was not able to care for himself, was abusing sleep and pain meds and refusing to take other meds, and making multiple suicidal statements as outlined in the petition. Social work spoke to his friend Shavon, and she reported she is worried about pt and suspects he is suicidal. She said that pt has commented that he will say what he needs to, so that others don't worry and watch him closely, so that he can overdose on his pain medication to "join" his father who a few years ago. His pain medications had been placed out of his reach at home, but he somehow managed to get them and took 20 pain pills in under a day's time. She said he consistently says his plan is to stock pile his medication and then overdose. She said that they have not been boyfriend/girlfriend since May of 2016 and since then she has tried to help him from a distance as he pushes her away and is very angry with her and the world. When she last saw him on Saturday ( 3-2) he was verbalizing active suicidality. She said that pt needs to stay in the hospital as long as possible since he will not be safe to leave because he is set on killing himself, because he has really bad judgement and that he can' t even do basic ADL's. Malka, director of casework at [facility], said patient was discharged to home, although their recommendation was for an assisted living facility, he refused that. They never got to the point of considering specific assisted living options because pt would not cooperate w this. Amie (his sister or daughter? ) and Kim were going to help him at home, and Kim quit her job to take care of pt. Malka made a referral to [facility] for counseling and medication management and also made a referral to [facility] ) for PT, OT and home nursing services. She said that pt was very difficult to work with at her facility since he did not want services, did not want to sign releases, and often restricted their ability to coordinate care w his family. He waived his appearance at his 303 hearing today, and did not contest it. He was seen afterwards and informed of the results. He says his mood is improved, which he attributes to a female peer "kicking my butt and making me go to groups." He is out of bed this morning and plans to attend groups. He denies SI. We reviewed the PT/OT recommendations for inpatient PT or 24/7 care at home. He says he would like 24/7 care at home, complaining that his recent inpatient rehab stay wasn't helpful. He says he was going to set this up, but doesn't know the name of the agency or if he was already referred. He says Shavon will be helping him at home after discharge, and is now willing to involve her in his treatment. He reports good sleep and appetite. He continues to say he won 't use insulin at home, but won't explain why not. He continues to show poor understanding of his medical conditions. Attempted to talk to him about his poor kidney function, and he says he was told during his most recent medical admission that his kidneys had "shut down." He is not sure who he was supposed to follow up with about this. He continues to decline mood stabilizing medication, saying he feels better here, and doesn't want anything that could cause him to gain weight. Sleep Information Total Hours of Sleep: 7.25 Meal Information Percent of Breakfast Consumed: 100 Percent of Lunch Consumed: 100 Percent of Dinner Consumed: 100 Mental Status Exam During interview pt is: alert and oriented, cooperative Appearance: disheveled, other (obese, improved hygiene) Eye contact is: good Motor behavior is: other (walking undependently without a cane) Speech: normal in rate, rhythm & volume, other (dysarthric but able to understand) Affect: other (more reactive today, but still depressed) Mood is: other ("better") Thought process: concrete Thought content: reality based without delusions Suicidal thought are: denied (admits made suicidal statements prior to admission, was not taking medications or eating) Homicidal thoughts are: denied Hallucinations: denies auditory Cognition: other (memory and attention are impaired) Intelligence estimated to be: below average Insight: severely impaired Judgement: severely impaired Impression RISK ASSESSMENT: 1. Risk factors -- male, , single, lives alone, multiple serious medical conditions, chronic mental illness, chronic noncompliance, history of previous hospitalizations, abusing medications, and anxiety. 2. Protective factors -- no access to guns, has friends he feels he can rely on , and willingness to get back into outpatient treatment. IMPRESSION: A 41-year-old gentleman admitted to our unit on a 302 involuntary commitment after having made suicidal statements with a plan to a friend, misusing pain medications, refusing to take medications for his multiple medical conditions, and poor oral intake and a suicide attempt. Here, he is trying to minimize that saying he has passive thoughts that he would be better off , but denies that he is acting out to end his life. He is a difficult historian and he does not appear to understand the severity of his medical conditions. As previously stated, he makes multiple statements about what he will and will not do and does not seem to appreciate the severity of his medical conditions. He says that he attended a special education curriculum when he was in school and likely has low IQ, suspect mild to moderate ID. I think that we need to spend time assessing his family and home situation, determining who may be of assistance to him, as he continues to refuse skilled nursing or inpatient rehabilitation, and due to his impairment status post stroke, he is not able to care for himself and he is clearly making very bad decisions regarding his medications, diet, etc. We will need to get old records from [facility] to determine what mood stabilizers and antidepressants he has been on in the past, as well as recent records from [facility] where he reportedly left AGAINST MEDICAL ADVICE several days prior to admission. He might benefit from an antidepressant to target his mood and in the context of his multiple medical conditions; however, I am not sure if he has a history of being activated on unopposed antidepressants in the past. He is not willing to take any medications to put on weight, which limit our choice of mood stabilizers. I think our first step is to gather more information about what treatment he had in the past, get his family and friends in for a meeting to determine what resources we have to work with. DIAGNOSES: 1. Bipolar disorder by the patient report, not otherwise specified, current episode depressed. 2. Intellectual disability, suspect mild to moderate. 3. Opiate abuse. 4. Diabetes. 5. Gastroesophageal reflux disease. 6. Obesity. 7. Obstructive sleep apnea. 8. Status post cerebrovascular accident in December 2016. 9. Tobacco dependence. 10. Noncompliance with treatment 11. Hypertension. Plan (1) Suicidal ideation Suicide checks for safety. Monitor oral intake and kidney function, as patient had not been eating or drinking prior to admission in an attempt to end his life, and showed signs of dehydration on laboratories. Encourage the patient to attend and participate in group and individual counseling. Family meeting with petitioner or other family member/support person - he is refusing. (2) Bipolar disorder 01/08 -He is currently on Neurontin 400 mg t.i.d. for back pain, which could serve as a very weak mood stabilizer. We will need to get records from [facility] to determine past medication trials. -Would like to start an SSRI, but would like to see the records regarding his history with SSRIs in the past. -Encourage good sleep-wake cycles. -Coordinate with Alondra with whom he supposedly has an appointment this week. 01/09 - Refusing to sign ROIs for [facility] or friends/family. Will file for 303 with hearing tomorrow as is depressed and overdosing on meds, refused to eat and drink with threats of suicide and had kidney dysfunction on admission due to dehydration, refusing to care for multiple medical problems and refused to take medications as prescribed or seek appropriate levels of care, and unable to care for his basic needs independently. 01/10 - 303 granted. - Today says willing to involve Shavon, who will be his primary support at discharge. Will need family meeting with her and possibly Kim, if she is also going to be helping him at home. He is refusing recommendations for inpatient PT or assisted living, and is only willing to return home. PT and OT have recommended 27/05 in home care, so will need to explore if that is feasible. (3) Opiate abuse, continuous 01/09 - started taper off oxycodone, due to abuse of this medication 01/10 - continue taper off oxycodone and start taper off Valium. Patient has been abusing these medications, took 20 tabs of oxycodone in less than 24 hours, and does not have an identified outpatient physician willing to prescribe these medications. In addition, opiate and benzos together are contraindicated and increase the risk of lethal overdose. He has demonstrated inability to take these medications appropriately or safely at home, and do not recommend he continue on them outside a controlled and supervised environment. Will need to taper off them here in order to prevent withdrawal at discharge. It appears they were started in the hospital and continued at [facility], but have not been prescribed by an outpatient provider, and he is refusing assisted living or other supervised living where his medications would be dispensed to him. Patient informed of tapers. (4) Intellectual disability (5) YOLA (acute kidney injury) 01/09 - Creatinine and BUN elevated on admission. Patient eating some here, will recheck labs today. Cr 1.5, BUN 27. Both values have been elevated during most recent medical admission, but were normal at the beginning of Dec. and during Nov. and Oct. admissions. Will consult medicine to determine need for further workup and if any of his medications need to be changed due to persistent kidney dysfunction. Discussed with Dr. Ahuja, who agreed with plan to taper off medications if not indicated, including oxycodone and diazepam. (6) Insufficient intake of food and water due to self neglect Monitoring PO intake, eating well here. (7) HTN (hypertension) Continue hydrochlorothiazide, metoprolol, and Lasix p.r.n. Monitor BPs. (8) Chronic pain Query PDMP site to confirm dosing of narcotics. His last few Rxs were from inpatient doctors. Unclear if he has an outpatient prescriber for narcotics. Per 302 petition, he was cheeking pain pills in the hospital and brought them home, then was abusing them at home. His UDS was negative for benzos on admission, indicating that he was not taking them as prescribed. He filled a 5 day prescription for oxycodone from Dr. Caro on 01/04/17, so should have bad enough to last him through 01/09, but on admission 01/07 UDS was negative for opiates (but positive for benzos and barbiturates). Nursing to do mouth checks here, and will coordinate with outpatient providers due to concerns for opiate abuse. 01/09 - After review of above information, will taper off of oxycodone, and in the meantime, monitor closely for cheeking/diversion. (9) Obesity Dietary consult to help the patient makes food choices with respect to all of his medical conditions. (10) Asthma (11) Diabetes mellitus type I Diabetic diet. Continue home meds and insulin sliding scale. He is refusing to take insulin at home, although it has been recommended. Consult diabetic pharmacist. Consider need for hospitalist consult. 01/10 - BG remains elevated, and not on insulin at home, but requiring it here. Hgb A1C elevated at 7.5 on 12/27/16. Will consult medicine for recommendations, as patient will likely be going home at discharge. Unclear who is following him as an outpatient. (12) Ischemic stroke - PT/OT consults for treatment here and recommendations for disposition/level of care needed at discharge. Reportedly left [facility] last week. Would like to review their records, but he refused to sign an LIZA. - Assist the patient with ADLs as necessary. - The patient has trouble voiding and self caths at home. We will monitor I\\T\\ O. - Continue home medications including Plavix and aspirin. (13) Nicotine addiction Encourage the patient to reduce or quit. We will offered nicotine patch or Nicorette gum p.r.n. (14) Dyslipidemia Continue Lipitor and Tricor at home dosing. Discharge / Aftercare Planning Primary Care Physician: Name: Jaxson Eldridge PA-C Psychiatrist: Name: Nancy Therapist: Name: Kae-Clear Date of Appointment: Jan 09, 2017 Visit Code E&M Code: 21918 Data Vital Signs Last 24 Hrs: Date Time Temp Pulse Resp B/P Pulse Ox O2 Delivery O2 Flow Rate FiO2 01/10/17 06:49 36.6 78 16 118/73 Meds Administered Last 24 Hrs: Meds Administered (Past 24Hrs) Medications (Trade) Dose Ordered Sig/Ney Route Start Time Stop Time Status Last Admin Dose Admin Aspirin (Ecotrin Tab) 81 mg DAILY PO 01/08/17 09:00 02/07/17 08:59 01/09/17 08:03 81 MG Atorvastatin Calcium (Lipitor Tab) 20 mg DAILY PO 01/08/17 09:00 02/07/17 08:59 01/09/17 08:04 20 MG Clopidogrel Bisulfate (plAVix TAB) 75 mg QAM PO 01/08/17 09:00 02/07/17 08:59 01/09/17 08:04 75 MG Fenofibrate (Tricor Tab) 48 mg DAILY PO 01/08/17 09:00 02/07/17 08:59 01/09/17 08:05 48 MG Fluticasone Propionate (Flonase Nasal Bock) 2 sprays DAILY CAROLEE 01/08/17 09:00 02/07/17 08:59 01/09/17 08:03 2 SPRAYS Hydrochlorothiazide (Hydrochlorothiazide Tab) 25 mg DAILY PO 01/08/17 09:00 02/07/17 08:59 01/09/17 08:04 25 MG Metoprolol Succinate (Toprol Xl Tab) 25 mg QAM PO 01/08/17 09:00 02/07/17 08:59 01/09/17 08:05 25 MG Montelukast Sodium (Singulair Tab) 10 mg DAILY PO 01/08/17 09:00 02/07/17 08:59 01/09/17 08:05 10 MG Pantoprazole Sodium (Protonix Tab) 40 mg DAILY PO 01/08/17 09:00 02/07/17 08:59 01/09/17 08:04 40 MG Insulin Aspart (novoLOG ASPART) SLIDING SCALE ACHS SC 01/08/17 12:00 02/07/17 11:59 01/09/17 21:37 1 UNITS Metformin HCl (Glucophage Tab) 500 mg BIDM PO 01/08/17 17:45 02/07/17 17:44 01/09/17 17:02 500 MG Oxycodone HCl (Roxicodone Immediate Rel Tab) 10 mg QID PO 01/09/17 12:00 01/23/17 11:59 01/09/17 21:32 10 MG Lab Results Last 24 Hrs: Last 24 Hours Test 01/09/17 11:45 01/09/17 12:15 01/09/17 16:01 01/09/17 21:01 Sodium Level 140 mmol/L Potassium Level 4.0 mmol/L Chloride Level 100 mmol/L Carbon Dioxide Level 32 mmol/L Anion Gap 8.0 mmol/L Blood Urea Nitrogen 27 mg/dl Creatinine 1.50 mg/dl Est Creatinine Clear Calc Drug Dose 78.4 ml/min Estimated GFR () 65.6 Estimated GFR (Non- 56.6 BUN/Creatinine Ratio 18.1 Random Glucose 113 mg/dl Calcium Level 9.2 mg/dl Bedside Glucose 144 mg/dl 194 mg/dl 122 mg/dl
--- NOTE | 2017-01-10 08:41 | Pharmacy Progress Note ---
Glycemic Control: Progress Nt Date of Service Jan 10, 2017. Scope Glycemic Pharmacist consulted by Dr Jhaveri on 01/08/17 for glycemic control and to write orders per [facility] inpatient glycemic control protocol. Objective Accuchecks BSG (last 24hrs): Test 01/09/17 11:45 01/09/17 12:15 01/09/17 16:01 01/09/17 21:01 Random Glucose 113 mg/dl (70-99) Bedside Glucose 144 mg/dl (70-99) 194 mg/dl (70-99) 122 mg/dl (70-99) Test 01/10/17 08:00 Bedside Glucose 126 mg/dl (70-99) Laboratory Data (last 24hrs) Test 01/09/17 11:45 Anion Gap 8.0 mmol/L BUN/Creatinine Ratio 18.1 Blood Urea Nitrogen 27 mg/dl Creatinine 1.50 mg/dl Potassium Level 4.0 mmol/L Sodium Level 140 mmol/L Recent Pertinent Medications Outpatient Anti-diabetic Regimen: * Metformin ER 500mg PO BID * A1c = 7.5 % 12/27/16 The patient is currently receiving: * Oral Agents: Metformin ER 500mg PO BID Risk Factors for Insulin Resistance: * Diet: Type 1 DM Assessment & Plan ASSESSMENT: 01/08/17 * 41 yo Type 2 DM admitted yesterday for mental health evaluation. Patient was reported by family to be trying to kill himself by not eating and not taking his medications. * Random BSG this AM = 363mg/dL. * Patient known to pharmacy glycemic service from October 2016, well controlled , will begin with this regimen. * Current diet is Type 1, I will continue this for now, as he only ate 25% of his breakfast and this diet which is higher in CHO has likely not contributed to hyperglycemia, but will continue to monitor and consider changing to Type 2 DM as necessary. * ADA & AACE recommend a goal blood sugar range 140-180 mg/dl for the majority of critically ill & non-critically ill patients. However, more stringent targets may be selected in individual cases. I will use 100-140mg/dl for patient 's age and A1c. 01/10/17 * BSGs look great, patient has received 23 units of insulin in the past 24 hours. No changes in current regimen needed. Will continue Type 1 DM diet. * Patient seen by cosmetology educator, patient not interested in education, etc. PLAN FOR INPATIENT GLYCEMIC CONTROL: * Continue Metformin ER 500mg PO BID * Correctional Insulin with NOVOLOG per scale ACHS or Q6hrs while NPO * Goal Range: Low 100 mg/dL - High 140 mg/dL * Correction Factor: 30 mg/dL/unit * Nutritional / Prandial insulin per carb ratio of 1 unit per 10 grams CHO consumed DISCHARGE RECOMMENDATIONS: * A1c = 7.5% is suboptimal control for patient's age, consider adding an additional oral agent (perhaps a sulfonylurea) upon discharge if patient is willing, although managing mental health state is priority at this time. * Ideally I would add an injectable, either once daily dose of long-acting insulin or GLP-1, but does not seem likely for patient to implement at this time. * Please note that the plan above was derived based on current level of insulin resistance and hospital stress. These recommendations are appropriate for inpatient admission only. Plan of care upon discharge will need to be reassessed to avoid potential outpatient hypo/hyperglycemia. Thank you.
[2017-01-10] MEDS: DICYCLOMINE HCL 10 MG CAP PO SCH ×2 (09:07→12:51)
[2017-01-10] MEDS: BUDESONIDE/FORMOTEROL FUMARATE 160/4.5 60 PUFFS/INHALER INH SCH ×2 (09:07→21:27)
[2017-01-10] MEDS: METFORMIN HCL 500 MG TAB PO SCH ×2 (09:07→17:53)
[2017-01-10] MEDS: FLUTICASONE PROPIONATE NA SPR 16 GM BTL NAE SCH (09:07)
[2017-01-10] MEDS: ASPIRIN 81 MG ECTAB PO SCH (09:07)
[2017-01-10] MEDS: GABAPENTIN 400 MG CAP PO SCH ×3 (09:08→21:28)
[2017-01-10] MEDS: HYDROCHLOROTHIAZIDE 25 MG TAB PO SCH (09:08)
[2017-01-10] MEDS: FENOFIBRATE 48 MG TAB PO SCH (09:08)
[2017-01-10] MEDS: CLOPIDOGREL BISULFATE 75 MG TAB PO SCH (09:08)
[2017-01-10] MEDS: ORPHENADRINE CITRATE 100 MG TABCR PO SCH (09:08)
[2017-01-10] MEDS: PANTOprazole SOD 40 MG TAB PO SCH (09:08)
[2017-01-10] MEDS: METOPROLOL SUCC 25MG EXT REL TAB PO SCH (09:08)
[2017-01-10] MEDS: MONTELUKAST SOD 10 MG TAB PO SCH (09:08)
[2017-01-10] MEDS: NYSTATIN SUSP 500,000 U/5 ML UDC PO SCH ×4 (09:08→21:27)
[2017-01-10] MEDS: ATORVASTATIN 20 MG TAB PO SCH (09:08)
[2017-01-10] MEDS: DIAZEPAM 5MG TAB PO SCH ×3 (09:10→21:28)
[2017-01-10] MEDS: OXYCODONE HCL IR 5 MG TAB (IMMEDIATE RELEASE) PO SCH ×4 (09:10→21:28)
[2017-01-10 12:57] LABS: BASO % 0.3 %; BASO ABS # 0.03 K/uL (0-0.2); COMPLETE YES; EOS % 2.5 %; IG% 0.2 %; LYMPH % 11.1 %; LYMPH ABS # 1.05 K/uL (1.2-3.4); MEAN CELL VOLUME 88.1 fL (80-100); MEAN CORPUSCULAR HEMOGLOBIN 30.1 pg (25-34); MEAN CORPUSCULAR HGB CONC 34.1 g/dl (32-36); MEAN PLATELET VOLUME 9.6 fL (7.4-10.4); MONO % 4.9 %; PLATELET COUNT 237 K/uL (130-400); RED BLOOD COUNT 3.86 M/uL (4.7-6.1); WHITE BLOOD COUNT 9.48 K/uL (4.8-10.8)
[2017-01-10 13:26] LABS: BUN/CREATININE RATIO 20.3 (10-20); CALCIUM 9.4 mg/dl (8.5-10.1); CREATININE 1.3 mg/dl (0.60-1.40); MAGNESIUM 2.2 mg/dl (1.8-2.4)
[2017-01-10 13:29] LABS: ALB/GLOB RATIO 1.1 (0.9-2)
--- NOTE | 2017-01-10 13:41 | Medical Consult ---
Consultation Date of Consultation: Jan 10, 2017. Attending Physician: Sahara Jhaveri MD Reason for Consultation: YOLA History of Present Illness This is a 41 y/o male with PMHx of DM 2, CAD, HTN, s/p recent CVA with residual L side hemiparesis and other problems as outlined below who was admitted to the behavioral health unit 2 days ago for suicidal ideation. Medicine is being consulted for YOLA. Pt was admitted to [facility] 12/26 for YOLA. At that time his creatinine was 2.2. It was thought to be secondary to NSAID use and dehydration. Pt received IV hydration, NSAIDs were discontinued and pt was discharged the following day with creatinine of 1.4. Pt confirms that he has not been taking NSAIDs since being discharged. He has a poor appetite but has been drinking 4L water every day. He does take Lasix on an as needed basis however he said he takes it "rarely" and doesn't remember the last time he took it. Per behavioral health staff, patient has been taking multiple OTC sleep medications. Pt mentions a history or urinary retention due to an enlarged prostate. Patient reports he has had to self-cath in the past. He was doing better for awhile, however he has been self-cathing again since his stroke in early December. Last exposure to contrast dye was 12/05. Pt denies fever/chills, chest pain, SOB, abd pain, N/V, bowel issues, dysuria, hematuria, LE edema, calf pain, lightheadedness/dizziness. Past Medical/Surgical History Medical Problems: (1) Failure to thrive Status: Acute (2) Headache Status: Acute (3) Left sided chest pain Status: Acute (4) Self neglect Status: Acute Family History Diabetes mellitus FH: cancer FH: lung disease FHx: gallbladder disease FHx: heart disease Hypertension Kidney disease Kidney stones Social History Smoking Status: Never Smoker Smokeless Tobacco Use: Yes (1 can per day for 30 years ) Drug Use: none Marital Status: Housing Status: lives alone (friend stays with him) Occupation Status: disabled Allergies Coded Allergies: Hydrocodone (Verified Allergy, Unknown, hives, itching, 01/07/17) Tramadol (Unverified Allergy, Unknown, VOMITING, 01/07/17) Current Inpatient Medications Current Inpatient Medications Medications (Trade) Dose Ordered Sig/Ney Route Start Time Stop Time Status Last Admin Dose Admin Acetaminophen (Tylenol Tab) 650 mg Q4H PRN PO 01/07/17 13:45 02/06/17 13:44 Bismuth Subsalicylate (Kaopectate Liqd) 15 ml PRN PRN PO 01/07/17 13:45 02/06/17 13:44 Al Hydroxide/Mg Hydroxide (Maalox Susp) 30 ml Q4H PRN PO 01/07/17 13:45 02/06/17 13:44 Magnesium Hydroxide (Milk Of Magnesia Susp) 30 ml DAILY PRN PO 01/07/17 13:45 02/06/17 13:44 Sodium Chloride ([place] Nasal [place]) PRN PRN NA 01/07/17 13:45 02/06/17 13:44 Hydroxyzine HCl (Vistaril Tab) 50 mg HSZ PRN PO 01/07/17 13:45 02/06/17 13:44 Hydroxyzine HCl (Vistaril Tab) 25 mg Q4H PRN PO 01/07/17 13:45 02/06/17 13:44 Aspirin (Ecotrin Tab) 81 mg DAILY PO 01/08/17 09:00 02/07/17 08:59 01/10/17 09:07 81 MG Atorvastatin Calcium (Lipitor Tab) 20 mg DAILY PO 01/08/17 09:00 02/07/17 08:59 01/10/17 09:08 20 MG Budesonide/ Formoterol Fumarate (Symbicort 160/ 4.5 Inh) 2 puffs BID INH 01/07/17 21:00 02/06/17 20:59 01/10/17 09:07 2 PUFFS Clopidogrel Bisulfate (plAVix TAB) 75 mg QAM PO 01/08/17 09:00 02/07/17 08:59 01/10/17 09:08 75 MG Dicyclomine HCl (Bentyl Cap) 10 mg QID PO 01/07/17 17:00 02/06/17 16:59 01/10/17 09:07 10 MG Fenofibrate (Tricor Tab) 48 mg DAILY PO 01/08/17 09:00 02/07/17 08:59 01/10/17 09:08 48 MG Fluticasone Propionate (Flonase Nasal [place]) 2 sprays DAILY CAROLEE 01/08/17 09:00 02/07/17 08:59 01/10/17 09:07 2 SPRAYS Furosemide (Lasix Tab) 20 mg BID PRN PO 01/07/17 13:45 02/06/17 13:44 Gabapentin (Neurontin Cap) 400 mg TID PO 01/07/17 21:00 02/06/17 20:59 01/10/17 09:08 400 MG Hydrochlorothiazide (Hydrochlorothiazide Tab) 25 mg DAILY PO 01/08/17 09:00 02/07/17 08:59 01/10/17 09:08 25 MG Metoprolol Succinate (Toprol Xl Tab) 25 mg QAM PO 01/08/17 09:00 02/07/17 08:59 01/10/17 09:08 25 MG Montelukast Sodium (Singulair Tab) 10 mg DAILY PO 01/08/17 09:00 02/07/17 08:59 01/10/17 09:08 10 MG Nystatin (Mycostatin Susp) 5 ml QID PO 01/07/17 17:00 01/26/17 16:59 01/10/17 09:08 5 ML Orphenadrine Citrate (Norflex Tab) 100 mg BID PO 01/07/17 21:00 02/06/17 20:59 01/10/17 09:08 100 MG Pantoprazole Sodium (Protonix Tab) 40 mg DAILY PO 01/08/17 09:00 02/07/17 08:59 01/10/17 09:08 40 MG Trazodone HCl (Desyrel Tab) 300 mg HS PO 01/07/17 21:00 02/06/17 20:59 01/09/17 21:28 300 MG Docusate Sodium (coLACE CAP) 100 mg TID PRN PO 01/07/17 13:45 02/06/17 13:44 Miscellaneous Information (Consult Glycemic Management Pharmacy) 1 ea UD PRN N/A 01/08/17 09:36 02/07/17 09:35 Insulin Aspart (novoLOG ASPART) SLIDING SCALE ACHS SC 01/08/17 12:00 02/07/17 11:59 01/10/17 08:00 5 UNITS Glucose (Glucose 40% Gel) 15-30 GRAMS 15 GRAMS... UD PRN PO 01/08/17 10:00 02/07/17 09:59 Glucose (Glucose Chew Tab) 4-8 Tablets 4 Tabl... UD PRN PO 01/08/17 10:00 02/07/17 09:59 Dextrose (Dextrose 50% 50ML Syringe) 25-50ML OF 50% DW IV FOR... UD PRN IV 01/08/17 10:00 02/07/17 09:59 Glucagon (Glucagon Inj) 1 mg UD PRN SQ 01/08/17 10:00 02/07/17 09:59 Metformin HCl (Glucophage Tab) 500 mg BIDM PO 01/08/17 17:45 02/07/17 17:44 01/10/17 09:07 500 MG Oxycodone HCl (Roxicodone Immediate Rel Tab) 10 mg QID PO 01/09/17 12:00 01/10/17 11:59 01/10/17 09:10 10 MG Diazepam (Valium Tab) 5 mg Taper TID PO 01/10/17 14:00 01/16/17 13:59 Oxycodone HCl (Roxicodone Immediate Rel Tab) 10 mg Taper QID PO 01/10/17 12:00 01/18/17 11:59 Review of Systems Constitutional: No chills, No fatigue, No fever, No sweats, No weakness Eyes: No worsening of vision Respiratory: No cough, No shortness of breath Cardiovascular: No chest pain, No claudication, No edema Abdomen: No constipation, No diarrhea, No nausea, No pain, No vomiting Musculoskeletal: No calf pain, No swelling Genitourinary - Male: + urinary retention (self caths), No dysuria, No urinary urgency Neurologic: No weakness Psychiatric: No depression symptoms Endocrine: No fatigue Hematologic / Lymphatic: No abnormal bleeding/bruising Integumentary: No new/changing skin lesions Physical Exam Date Time Temp Pulse Resp B/P Pulse Ox O2 Delivery O2 Flow Rate FiO2 01/10/17 06:49 36.6 78 16 118/73 General Appearance: WD/WN, no apparent distress, + pertinent finding (Pt is sitting up in bed) Head: normocephalic, atraumatic Eyes: normal inspection ENT: hearing grossly normal Neck: supple Respiratory/Chest: chest non-tender, lungs clear, normal breath sounds, no respiratory distress Cardiovascular: regular rate, rhythm, no edema, no murmur Abdomen/GI: normal bowel sounds, non tender, soft Back: normal inspection, no CVA tenderness Extremities/Musculoskelatal: normal inspection, no calf tenderness, no pedal edema Neurologic/Psych: no motor/sensory deficits (L upper and lower extremity weakness (Upper>lower)), alert, normal mood/affect, oriented x 3 Skin: normal color, warm/dry Laboratory Results Last 24 Hours Test 01/09/17 12:15 01/09/17 16:01 01/09/17 21:01 01/10/17 08:00 Bedside Glucose 144 mg/dl 194 mg/dl 122 mg/dl 126 mg/dl Assessment & Plan YOLA may be medication related vs. post-obstructive with h/o urinary retention requiring self cath -creatinine 1.5 (creatinine 12/27 1.4); prior baseline creatinine is around 1.0 -check UA and urine studies -hold Norflex (anti-cholinergic), Lasix and HCTZ -monitor with daily prp and avoid nephrotoxic agents when able URINARY RETENTION pt reports h/o BPH requiring self catheterization; may be contributing to YOLA -cont self cath -consult urology, [place] H/O RECENT MCA RIGHT SIDED STROKE WITH RESIDUAL L SIDED HEMIPARESIS -residual L sided weakness improving with PT per patient -cont ASA, Plavix and statin -PT/OT DM 2 -recent A1C 7.5 -cont metformin and ISS coverage -pharmacy consulted for glycemic control H/O NON-OBSTRUCTIVE CAD -per cath in December 2016 -cont ASA, BB and statin -pt currently denies anginal sxs HTN -BP stable -cont metoprolol -hold HCTZ for now due to YOLA -monitor GERD -cont PPI DVT PROPHYLAXIS -SCDs and ambulation Pt seen in collaboration with Dr. Ahuja. Please see her addendum for further details. Thanks! Thank you for this consultation. We will follow the patient with you during their hospital stay. You can reach a member of the [facility] Hospitalist Team 27/05 via pager @ [phone]. ADDENDUM: I have seen and examined the patient and have discussed the case with the provider above. I agree with the assessment and plan as stated. WRT his decreased kidney function, his FeNa is <1% indicating a prerenal etiology. He states he is keeping up on his water intake, and his creatinine is going down since admission. He was also taking multiple sleep aids at home, one of which was an OTC one from the [employer]. In addition, he has been inconsistent with taking medications. He also has urinary retention which is long-standing. Appreciate [facility] recs and ordered renal u/s for am. Consider consulting [facility] as patient evidently sees them as outpatient. Overall this patient is unable to care for himself at home and needs to be in a skilled facility. This will need to be addressed by the primary team. DO Seymour
[2017-01-10 15:22] LABS: URINE APPEARANCE CLEAR (CLEAR); URINE BILIRUBIN NEG (NEG); URINE COLOR YELLOW; URINE NITRITE NEG (NEG); URINE SPECIFIC GRAVITY 1.017 (1.000-1.030); UROBILINOGEN NEG (NEG)
[2017-01-10 15:25] LABS: MANUAL MICROSCOPIC REQUIRED? NO; REVIEW REQ? NO
[2017-01-10 16:03] LABS: HYDROXYETHYLFLURAZEPAM CONF NEGATIVE NG/ML (CUTOFF=50); HYDROXYMIDAZOLAM NEGATIVE NG/ML (CUTOFF=50); HYDROXYTRIAZOLAM CONF NEGATIVE NG/ML (CUTOFF=50); TEMAZEPAM CONF 986 NG/ML (CUTOFF=50)
--- NOTE | 2017-01-10 19:05 | Urology Consultation ---
History General Date of Service: Jan 10, 2017. Primary Care Physician: No Doctor, Assigned History of Present Illness I spoke with patient and he reports he has had retention since his stroke Dec 2016. He mentions this happened before and he saw a Urologist on [address] by the [facility] office who gave him a pill and then he started voiding again. He would like to see this doctor again and get that same pill which worked so well before. We can certainly call them and they can review their notes. he believes he saw them within the last 6 - 12 months. He also mentions he uses a stiff straight cath with a green drainage cap at home. he finds the red rubbers here in hospital too floppy to use. Perhaps we have a plastic or silicone straight cath here which is stiffer than the red rubbers. He is voiding spontaneously first think in the am but then nothing but with a catheter at noon and again at 6pm. I recommend a renal ultrasound to check for hydro in light of recent elevation of creatinine. Other recommendations to come from his established urologist at [facility]. Laboratory Labs were reviewed and are within normal limits unless listed below. Labs are available in the chart and at [facility] Problem List Medical Problems: (1) Failure to thrive Status: Acute (2) Headache Status: Acute (3) Left sided chest pain Status: Acute (4) Self neglect Status: Acute Family History Diabetes mellitus FH: cancer FH: lung disease FHx: gallbladder disease FHx: heart disease Hypertension Kidney disease Kidney stones Social History Hx Tobacco Use In Past Year?: Yes Marital status: Housing status: lives alone Occupation status: disabled Immunizations History of Influenza Vaccine: Yes Influenza Vaccine Date: Aug 25, 2012 History of Tetanus Vaccine?: Yes Tetanus Immunization Date: Aug 12, 1992 History of Pneumococcal: Yes Pneumococcal Date: Aug 09, 2006 History of Hepatitis B Vaccine: Unknown History of MDRO No Type of MDRO: MRSA Allergies Coded Allergies: Hydrocodone (Verified Allergy, Unknown, hives, itching, 01/07/17) Tramadol (Unverified Allergy, Unknown, VOMITING, 01/07/17) Medications Home Medications: Home Meds and Scripts Medications Dose Route/Sig Max Daily Dose Days Date Category Glucophage (Metformin Hcl) 500 Mg Tab 1 Tab PO BIDM 90 01/08/17 Reported Roxicodone Ir (Oxycodone HCl) 5 Mg Tab 15 Mg PO QID 3/6/17 Reported Protonix (Pantoprazole Sodium) 40 Mg Tab 40 Mg PO DAILY 01/07/17 Reported Nystatin Suspension (Nystatin) 1 Ml Susp 5 Ml PO QID 01/07/17 Reported Metoprolol Succinate ER (Metoprolol Succinate) 25 Mg Tabcr 25 Mg PO DAILY 01/07/17 Reported Hydrochlorothiazide 25 Mg Tab 25 Mg PO DAILY 01/07/17 Reported Neurontin (Gabapentin) 400 Mg Cap 400 Mg PO TID 01/07/17 Reported Tricor (Fenofibrate) 48 Mg Tab 48 Mg PO DAILY 01/07/17 Reported Bentyl (Dicyclomine Hcl) 10 Mg Cap 10 Mg PO QID 01/07/17 Reported Valium (Diazepam) 5 Mg Tab 5 Mg PO QID 01/07/17 Reported Plavix (Clopidogrel Bisulfate) 75 Mg Tab 75 Mg PO DAILY 01/07/17 Reported Lipitor (Atorvastatin Calcium) 20 Mg Tab 20 Mg PO DAILY 01/07/17 Reported Lasix (Furosemide) 20 Mg Tab 20 Mg PO BID PRN 12/25/16 Reported Norflex (Orphenadrine Citrate) 100 Mg Tabcr 100 Mg PO BID 12/25/16 Reported Flonase Allergy Relief (Fluticasone Propionate (Nasal)) 50 Mcg/Act Spr 2 Sprays CAROLEE DAILY 12/03/16 Reported Aspirin Ec (Aspirin) 81 Mg Tab 81 Mg PO DAILY 12/03/16 Reported Stool Softener (Docusate Sodium) 100 Mg Tab 100 Mg PO TID PRN 05/14/16 Reported Trazodone (Trazodone HCl) 100 Mg Tab 300 Mg PO HS 05/14/16 Reported Symbicort 160/4.5 Inhaler (Budesonide/Formoterol Fumarate) 120 Puffs/ Aero 2 Puffs INH BID 03/22/14 Reported Singulair (Montelukast Sodium) 10 Mg Tab 10 Mg PO DAILY 10/28/13 Reported Inpatient Medications: Current Inpatient Medications Medications (Trade) Dose Ordered Sig/Ney Route Start Time Stop Time Status Last Admin Dose Admin Acetaminophen (Tylenol Tab) 650 mg Q4H PRN PO 01/07/17 13:45 02/06/17 13:44 Bismuth Subsalicylate (Kaopectate Liqd) 15 ml PRN PRN PO 01/07/17 13:45 02/06/17 13:44 Al Hydroxide/Mg Hydroxide (Maalox Susp) 30 ml Q4H PRN PO 01/07/17 13:45 02/06/17 13:44 Magnesium Hydroxide (Milk Of Magnesia Susp) 30 ml DAILY PRN PO 01/07/17 13:45 02/06/17 13:44 Sodium Chloride ([place] Nasal [place]) PRN PRN NA 01/07/17 13:45 02/06/17 13:44 Hydroxyzine HCl (Vistaril Tab) 50 mg HSZ PRN PO 01/07/17 13:45 02/06/17 13:44 Hydroxyzine HCl (Vistaril Tab) 25 mg Q4H PRN PO 01/07/17 13:45 02/06/17 13:44 Aspirin (Ecotrin Tab) 81 mg DAILY PO 01/08/17 09:00 02/07/17 08:59 01/10/17 09:07 81 MG Atorvastatin Calcium (Lipitor Tab) 20 mg DAILY PO 01/08/17 09:00 02/07/17 08:59 01/10/17 09:08 20 MG Budesonide/ Formoterol Fumarate (Symbicort 160/ 4.5 Inh) 2 puffs BID INH 01/07/17 21:00 02/06/17 20:59 01/10/17 09:07 2 PUFFS Clopidogrel Bisulfate (plAVix TAB) 75 mg QAM PO 01/08/17 09:00 02/07/17 08:59 01/10/17 09:08 75 MG Dicyclomine HCl (Bentyl Cap) 10 mg QID PO 01/07/17 17:00 02/06/17 16:59 Future Hold 01/10/17 12:51 10 MG Fenofibrate (Tricor Tab) 48 mg DAILY PO 01/08/17 09:00 02/07/17 08:59 01/10/17 09:08 48 MG Fluticasone Propionate (Flonase Nasal [place]) 2 sprays DAILY CAROLEE 01/08/17 09:00 02/07/17 08:59 01/10/17 09:07 2 SPRAYS Furosemide (Lasix Tab) 20 mg BID PRN PO 01/07/17 13:45 02/06/17 13:44 Future Hold Gabapentin (Neurontin Cap) 400 mg TID PO 01/07/17 21:00 02/06/17 20:59 01/10/17 13:43 400 MG Hydrochlorothiazide (Hydrochlorothiazide Tab) 25 mg DAILY PO 01/08/17 09:00 02/07/17 08:59 Future Hold 01/10/17 09:08 25 MG Metoprolol Succinate (Toprol Xl Tab) 25 mg QAM PO 01/08/17 09:00 02/07/17 08:59 01/10/17 09:08 25 MG Montelukast Sodium (Singulair Tab) 10 mg DAILY PO 01/08/17 09:00 02/07/17 08:59 01/10/17 09:08 10 MG Nystatin (Mycostatin Susp) 5 ml QID PO 01/07/17 17:00 01/26/17 16:59 01/10/17 17:00 5 ML Orphenadrine Citrate (Norflex Tab) 100 mg BID PO 01/07/17 21:00 02/06/17 20:59 Future Hold 01/10/17 09:08 100 MG Pantoprazole Sodium (Protonix Tab) 40 mg DAILY PO 01/08/17 09:00 02/07/17 08:59 01/10/17 09:08 40 MG Trazodone HCl (Desyrel Tab) 300 mg HS PO 01/07/17 21:00 02/06/17 20:59 01/09/17 21:28 300 MG Docusate Sodium (coLACE CAP) 100 mg TID PRN PO 01/07/17 13:45 02/06/17 13:44 Miscellaneous Information (Consult Glycemic Management Pharmacy) 1 ea UD PRN N/A 01/08/17 09:36 02/07/17 09:35 Insulin Aspart (novoLOG ASPART) SLIDING SCALE ACHS SC 01/08/17 12:00 02/07/17 11:59 01/10/17 17:35 6 UNITS Glucose (Glucose 40% Gel) 15-30 GRAMS 15 GRAMS... UD PRN PO 01/08/17 10:00 02/07/17 09:59 Glucose (Glucose Chew Tab) 4-8 Tablets 4 Tabl... UD PRN PO 01/08/17 10:00 02/07/17 09:59 Dextrose (Dextrose 50% 50ML Syringe) 25-50ML OF 50% DW IV FOR... UD PRN IV 01/08/17 10:00 02/07/17 09:59 Glucagon (Glucagon Inj) 1 mg UD PRN SQ 01/08/17 10:00 02/07/17 09:59 Metformin HCl (Glucophage Tab) 500 mg BIDM PO 01/08/17 17:45 02/07/17 17:44 01/10/17 17:53 500 MG Diazepam (Valium Tab) 5 mg Taper TID PO 01/10/17 14:00 01/16/17 13:59 01/10/17 13:43 5 MG Oxycodone HCl (Roxicodone Immediate Rel Tab) 10 mg Taper QID PO 01/10/17 12:00 01/18/17 11:59 01/10/17 17:16 10 MG
[2017-01-10] MEDS: TRAZODONE HCL 100 MG TAB PO SCH (21:27)
[2017-01-11 06:33] VITALS: BP 132/80; PULSE 71; TEMP 36.7
[2017-01-11 07:41] LABS: BUN/CREATININE RATIO 20.9 (10-20); CALCIUM 9.2 mg/dl (8.5-10.1); CREATININE 1.3 mg/dl (0.60-1.40); MAGNESIUM 2.2 mg/dl (1.8-2.4)
[2017-01-11] MEDS: FLUTICASONE PROPIONATE NA SPR 16 GM BTL NAE SCH (08:48)
[2017-01-11] MEDS: BUDESONIDE/FORMOTEROL FUMARATE 160/4.5 60 PUFFS/INHALER INH SCH ×2 (08:48→21:31)
[2017-01-11] MEDS: MONTELUKAST SOD 10 MG TAB PO SCH (08:49)
[2017-01-11] MEDS: ATORVASTATIN 20 MG TAB PO SCH (08:49)
[2017-01-11] MEDS: GABAPENTIN 400 MG CAP PO SCH ×3 (08:49→21:31)
[2017-01-11] MEDS: METFORMIN HCL 500 MG TAB PO SCH ×2 (08:49→17:35)
[2017-01-11] MEDS: ASPIRIN 81 MG ECTAB PO SCH (08:49)
[2017-01-11] MEDS: CLOPIDOGREL BISULFATE 75 MG TAB PO SCH (08:49)
[2017-01-11] MEDS: METOPROLOL SUCC 25MG EXT REL TAB PO SCH (08:49)
[2017-01-11] MEDS: PANTOprazole SOD 40 MG TAB PO SCH (08:50)
[2017-01-11] MEDS: NYSTATIN SUSP 500,000 U/5 ML UDC PO SCH ×4 (08:50→21:31)
[2017-01-11] MEDS: DIAZEPAM 5MG TAB PO SCH ×3 (08:50→21:32)
[2017-01-11] MEDS: FENOFIBRATE 48 MG TAB PO SCH (08:50)
[2017-01-11] MEDS: OXYCODONE HCL IR 5 MG TAB (IMMEDIATE RELEASE) PO SCH ×4 (08:51→21:32)
[2017-01-11] MEDS: INSULIN ASPART 100 UNITS/ML 3 ML PEN SC SCH ×4 (08:54→21:35)
--- NOTE | 2017-01-11 11:12 | DIAGNOSTIC IMAGING REPORT ---
RENAL ULTRASOUND HISTORY: Renal insufficiency LIZETH in setting of urinary retention COMPARISON: None. FINDINGS: Right kidney: Maximum dimension 12.1 cm. No evidence for hydronephrosis. Normal corticomedullary differentiation and cortical thickness. Left kidney: Maximum dimension 11.9 cm. No evidence for hydronephrosis. Normal corticomedullary differentiation and cortical thickness. Bladder: No bladder wall thickening. The bilateral ureteral jets were identified. IMPRESSION: Normal renal ultrasound. Electronically signed by: Mukesh Uribe M.D. 01/11/2017 11:11 AM Dictated Date/Time: 01/11/2017 11:10 AM
--- NOTE | 2017-01-11 13:11 | Psychiatric Progress Notes ---
Progress Note Date of Service Jan 11, 2017. Interval History Gerber Ryan is a 41-year-old gentleman from [place], [place], admitted to our unit on a 302 involuntary commitment having made statements of suicide to stop eating and taking his meds to . Chief Complaint "I'm worried about my kidneys". Subjective Patient was seen & assessed interval progress reviewed with Treatment Team. The patient says that he is worrying about his health, specifically his kidneys today. He says that he is not sleeping well at night and tends to cry when not sleeping. He still insists that he can go home and live, "I have bills to pay" , and thinks that its as easy as the doctor writing for 24 hour care. He agrees to have this 24 hr care, but if can't be arranged, he still refuses to go to assisted living. He says that "I am trying " to be cooperative with his treatment plan. He says that he is eating, and showered yesterday. He denies SI/HI, Review of Systems Constitutional: + fatigue ENT: No dental problems, No hearing loss, No nasal symptoms, No problem reported, No sore throat, No tinnitus, No trouble swallowing, No unusual epistaxis Respiratory: No cough, No dyspnea at rest, No dyspnea on exertion, No hemoptysis, No problem reported, No shortness of breath, No sputum, No wheezing Cardiovascular: No PND, No chest pain, No claudication, No edema, No orthopnea , No palpitations, No problem reported Abdomen: No GI bleeding, No constipation, No diarrhea, No nausea, No pain, No problem reported, No vomiting Musculoskeletal: No calf pain, No joint pain, No muscle pain, No problem reported, No swelling Neurologic: + weakness (left sided) Psychiatric: + depression symptoms Integumentary: No bleeding, No color change, No itch, No new/changing skin lesions, No problem reported, No rash Sleep Information Total Hours of Sleep: 7.50 Meal Information Percent of Breakfast Consumed: 50 Percent of Lunch Consumed: 100 Percent of Dinner Consumed: 100 Mental Status Exam During interview pt is: alert and oriented, cooperative Appearance: appropriately groomed, other (obese, improved hygiene) Eye contact is: good Motor behavior is: other (walking independently without a cane) Speech: normal in rate, rhythm & volume, other (dysarthric but able to understand) Affect: flat Mood is: depressed Thought process: concrete Thought content: reality based without delusions Suicidal thought are: denied Homicidal thoughts are: denied Hallucinations: denies auditory Cognition: other (memory and attention are impaired) Intelligence estimated to be: below average Insight: severely impaired Judgement: severely impaired Summary of Past History 01/11/17 Spoke with nurse at [facility] in [place], [phone]. She confirmed that Gerber has been a client of their pain management clinic, but in October the patient altered his rx for Roxycodone 15 mg. 5X daily by scratching out the Do Not Fill Until date. He was caught and they will no longer prescribe narcs, but he may continue to receive care in their clinic with injections or other conservative measures. Impression The patient is now here on a 303 commitment. OT and PT are recommending ongoing therapy and if discharged, that he have 27/05 care. His friends who were previously helping, are no longer willing to provide care. Adult protective services has been called and we will be completing the appropriate paperwork for that and for potential assisted living placement if needed. Our first choice would be to establish the OP care he needs to afford him the chance to continuing living independently, but there are limitations to this given that he lives in a second floor walk up and has no family to care for him. His mood is reactive and today is very concerned about his medical condition. We have now confirmed that he had been seeing pain management, but will no longer be prescribed narcs because he altered a script. Opiate taper is in place. He will continue to require inpatient treatment until an appropriate disposition is arranged. Continued Inpatient Care The patient requires inpatient care due to his inability to care for himself outside of a structured environment. Plan (1) Suicidal ideation Suicide checks for safety. Monitor oral intake and kidney function, as patient had not been eating or drinking prior to admission in an attempt to end his life, and showed signs of dehydration on laboratories. Encourage the patient to attend and participate in group and individual counseling. Family meeting with petitioner or other family member/support person - he is refusing. (2) Bipolar disorder 01/08 -He is currently on Neurontin 400 mg t.i.d. for back pain, which could serve as a very weak mood stabilizer. We will need to get records from [facility] to determine past medication trials. -Would like to start an SSRI, but would like to see the records regarding his history with SSRIs in the past. -Encourage good sleep-wake cycles. -Coordinate with Alondra with whom he supposedly has an appointment this week. 01/09 - Refusing to sign ROIs for [facility] or friends/family. Will file for 303 with hearing tomorrow as is depressed and overdosing on meds, refused to eat and drink with threats of suicide and had kidney dysfunction on admission due to dehydration, refusing to care for multiple medical problems and refused to take medications as prescribed or seek appropriate levels of care, and unable to care for his basic needs independently. 01/10 - 303 granted. - Today says willing to involve Shavon, who will be his primary support at discharge. Will need family meeting with her and possibly Kim, if she is also going to be helping him at home. He is refusing recommendations for inpatient PT or assisted living, and is only willing to return home. PT and OT have recommended 27/05 in home care, so will need to explore if that is feasible. (3) Opiate abuse, continuous 01/09 - started taper off oxycodone, due to abuse of this medication 01/10 - continue taper off oxycodone and start taper off Valium. Patient has been abusing these medications, took 20 tabs of oxycodone in less than 24 hours, and does not have an identified outpatient physician willing to prescribe these medications. In addition, opiate and benzos together are contraindicated and increase the risk of lethal overdose. He has demonstrated inability to take these medications appropriately or safely at home, and do not recommend he continue on them outside a controlled and supervised environment. Will need to taper off them here in order to prevent withdrawal at discharge. It appears they were started in the hospital and continued at [facility], but have not been prescribed by an outpatient provider, and he is refusing assisted living or other supervised living where his medications would be dispensed to him. Patient informed of tapers. (4) Intellectual disability (5) YOLA (acute kidney injury) 01/09 - Creatinine and BUN elevated on admission. Patient eating some here, will recheck labs today. Cr 1.5, BUN 27. Both values have been elevated during most recent medical admission, but were normal at the beginning of Dec. and during Nov. and Oct. admissions. Will consult medicine to determine need for further workup and if any of his medications need to be changed due to persistent kidney dysfunction. Discussed with Dr. Ahuja, who agreed with plan to taper off medications if not indicated, including oxycodone and diazepam. (6) HTN (hypertension) Continue hydrochlorothiazide, metoprolol, and Lasix p.r.n. Monitor BPs. (7) Chronic pain Query PDMP site to confirm dosing of narcotics. His last few Rxs were from inpatient doctors. Unclear if he has an outpatient prescriber for narcotics. Per 302 petition, he was cheeking pain pills in the hospital and brought them home, then was abusing them at home. His UDS was negative for benzos on admission, indicating that he was not taking them as prescribed. He filled a 5 day prescription for oxycodone from Dr. Caro on 01/04/17, so should have bad enough to last him through 01/09, but on admission 01/07 UDS was negative for opiates (but positive for benzos and barbiturates). Nursing to do mouth checks here, and will coordinate with outpatient providers due to concerns for opiate abuse. 01/09 - After review of above information, will taper off of oxycodone, and in the meantime, monitor closely for cheeking/diversion. 01/11 - Confirmed that he had been seen for pain management with [facility], but altered a script in October so no longer getting controlled substances from them, but can return for conservative treatment. (8) Obesity Dietary consult to help the patient makes food choices with respect to all of his medical conditions. (9) Asthma (10) Diabetes mellitus type I Diabetic diet. Continue home meds and insulin sliding scale. He is refusing to take insulin at home, although it has been recommended. Consult diabetic pharmacist. Consider need for hospitalist consult. 01/10 - BG remains elevated, and not on insulin at home, but requiring it here. Hgb A1C elevated at 7.5 on 12/27/16. Will consult medicine for recommendations, as patient will likely be going home at discharge. Unclear who is following him as an outpatient. (11) Ischemic stroke - PT/OT consults for treatment here and recommendations for disposition/level of care needed at discharge. Reportedly left [facility] last week. Would like to review their records, but he refused to sign an LIZA. - Assist the patient with ADLs as necessary. - The patient has trouble voiding and self caths at home. We will monitor I\\T\\ O. - Continue home medications including Plavix and aspirin. (12) Nicotine addiction Encourage the patient to reduce or quit. We will offered nicotine patch or Nicorette gum p.r.n. (13) Dyslipidemia Continue Lipitor and Tricor at home dosing. Discharge / Aftercare Planning Primary Care Physician: Name: Jaxson Eldridge PA-C Psychiatrist: Name: Kim Therapist: Name: Kim Date of Appointment: Jan 09, 2017 Visit Code E&M Code: 16950 Risk Factors Assessment Male: Yes : Yes /single/: Yes Higher / Fall in social status: No Health problems: Yes Substance use disorders: Yes Previous psychiatric stay: No Smoker: Yes Protective Factors Assessment Quaker beliefs: No : No Responsible for young children: No Employed: No Stable relationships: No Supportive family: No Data Vital Signs Last 24 Hrs: Date Time Temp Pulse Resp B/P Pulse Ox O2 Delivery O2 Flow Rate FiO2 01/11/17 06:33 36.7 71 18 132/80 Meds Administered Last 24 Hrs: Meds Administered (Past 24Hrs) Medications (Trade) Dose Ordered Sig/Ney Route Start Time Stop Time Status Last Admin Dose Admin Diazepam (Valium Tab) 5 mg Taper TID PO 01/10/17 14:00 01/16/17 13:59 01/11/17 08:50 5 MG Oxycodone HCl (Roxicodone Immediate Rel Tab) 10 mg Taper QID PO 01/10/17 12:00 01/18/17 11:59 01/11/17 08:51 10 MG Lab Results Last 24 Hrs: Last 24 Hours Test 01/10/17 12:38 01/10/17 14:50 01/10/17 15:56 01/10/17 20:36 White Blood Count 9.48 K/uL Red Blood Count 3.86 M/uL Hemoglobin 11.6 g/dL Hematocrit 34.0 % Mean Corpuscular Volume 88.1 fL Mean Corpuscular Hemoglobin 30.1 pg Mean Corpuscular Hemoglobin Concent 34.1 g/dl Platelet Count 237 K/uL Mean Platelet Volume 9.6 fL Neutrophils (%) (Auto) 81.0 % Lymphocytes (%) (Auto) 11.1 % Monocytes (%) (Auto) 4.9 % Eosinophils (%) (Auto) 2.5 % Basophils (%) (Auto) 0.3 % Neutrophils # (Auto) 7.68 K/uL Lymphocytes # (Auto) 1.05 K/uL Monocytes # (Auto) 0.46 K/uL Eosinophils # (Auto) 0.24 K/uL Basophils # (Auto) 0.03 K/uL RDW Standard Deviation 42.4 fL RDW Coefficient of Variation 13.3 % Immature Granulocyte % (Auto) 0.2 % Immature Granulocyte # (Auto) 0.02 K/uL Sodium Level 139 mmol/L Potassium Level 4.0 mmol/L Chloride Level 102 mmol/L Carbon Dioxide Level 27 mmol/L Anion Gap 10.0 mmol/L Blood Urea Nitrogen 26 mg/dl Creatinine 1.30 mg/dl Est Creatinine Clear Calc Drug Dose 90.5 ml/min Estimated GFR () 78.0 Estimated GFR (Non- 67.3 BUN/Creatinine Ratio 20.3 Random Glucose 121 mg/dl Calcium Level 9.4 mg/dl Magnesium Level 2.2 mg/dl Total Bilirubin 0.3 mg/dl Aspartate Amino Transf (AST/SGOT) 12 U/L Alanine Aminotransferase (ALT/SGPT) 20 U/L Alkaline Phosphatase 77 U/L Total Protein 7.2 gm/dl Albumin 3.7 gm/dl Globulin 3.5 gm/dl Albumin/Globulin Ratio 1.1 Urine Color YELLOW Urine Appearance CLEAR Urine pH 8.0 Urine Specific [place] 1.017 Urine Protein NEG Urine Glucose (UA) NEG Urine Ketones NEG Urine Occult Blood NEG Urine Nitrite NEG Urine Bilirubin NEG Urine Urobilinogen NEG Urine Leukocyte Esterase NEG Urine Random Creatinine 110.0 mg/dl Urine Random Sodium 102 mEq/L Urine Random Urea Nitrogen 655 mg/dl Bedside Glucose 100 mg/dl 138 mg/dl Test 01/11/17 07:05 01/11/17 07:47 01/11/17 12:15 Sodium Level 142 mmol/L Potassium Level 4.0 mmol/L Chloride Level 104 mmol/L Carbon Dioxide Level 29 mmol/L Anion Gap 9.0 mmol/L Blood Urea Nitrogen 27 mg/dl Creatinine 1.30 mg/dl Est Creatinine Clear Calc Drug Dose 90.5 ml/min Estimated GFR () 78.0 Estimated GFR (Non- 67.3 BUN/Creatinine Ratio 20.9 Random Glucose 130 mg/dl Calcium Level 9.2 mg/dl Magnesium Level 2.2 mg/dl Bedside Glucose 144 mg/dl 131 mg/dl
[2017-01-11] MEDS: ACETAMINOPHEN 325 MG TAB PO PRN (15:06)
--- NOTE | 2017-01-11 18:11 | Progress Note ---
Subjective Date of Service: Jan 11, 2017. Subjective Pt evaluation today including: conversation w/ patient, physical exam, lab review, review of studies, review of inpatient medication list Saw/examined the patient in room 327 Doing well today, moving his left side a lot better than before - ambulating on his own without assistance states that he urinates in the morning fine but in the afternoon he has to cath himself Problem List Medical Problems: (1) Failure to thrive Status: Acute (2) Headache Status: Acute (3) Left sided chest pain Status: Acute (4) Self neglect Status: Acute Review of Systems Constitutional: No chills, No fever Respiratory: No cough, No shortness of breath, No sputum Cardiac: No chest pain Male : + problem reported (retention), + slowing stream, No dysuria, No incontinence, No urinary frequency Medications Current Inpatient Medications Medications (Trade) Dose Ordered Sig/Ney Route Start Time Stop Time Status Last Admin Dose Admin Acetaminophen (Tylenol Tab) 650 mg Q4H PRN PO 01/07/17 13:45 02/06/17 13:44 01/11/17 15:06 650 MG Bismuth Subsalicylate (Kaopectate Liqd) 15 ml PRN PRN PO 01/07/17 13:45 02/06/17 13:44 Al Hydroxide/Mg Hydroxide (Maalox Susp) 30 ml Q4H PRN PO 01/07/17 13:45 02/06/17 13:44 Magnesium Hydroxide (Milk Of Magnesia Susp) 30 ml DAILY PRN PO 01/07/17 13:45 02/06/17 13:44 Sodium Chloride ([place] Nasal [place]) PRN PRN NA 01/07/17 13:45 02/06/17 13:44 Hydroxyzine HCl (Vistaril Tab) 50 mg HSZ PRN PO 01/07/17 13:45 02/06/17 13:44 Hydroxyzine HCl (Vistaril Tab) 25 mg Q4H PRN PO 01/07/17 13:45 02/06/17 13:44 Aspirin (Ecotrin Tab) 81 mg DAILY PO 01/08/17 09:00 02/07/17 08:59 01/11/17 08:49 81 MG Atorvastatin Calcium (Lipitor Tab) 20 mg DAILY PO 01/08/17 09:00 02/07/17 08:59 01/11/17 08:49 20 MG Budesonide/ Formoterol Fumarate (Symbicort 160/ 4.5 Inh) 2 puffs BID INH 01/07/17 21:00 02/06/17 20:59 01/11/17 08:48 2 PUFFS Clopidogrel Bisulfate (plAVix TAB) 75 mg QAM PO 01/08/17 09:00 02/07/17 08:59 01/11/17 08:49 75 MG Dicyclomine HCl (Bentyl Cap) 10 mg QID PO 01/07/17 17:00 02/06/17 16:59 Future Hold 01/10/17 12:51 10 MG Fenofibrate (Tricor Tab) 48 mg DAILY PO 01/08/17 09:00 02/07/17 08:59 01/11/17 08:50 48 MG Fluticasone Propionate (Flonase Nasal [place]) 2 sprays DAILY CAROLEE 01/08/17 09:00 02/07/17 08:59 01/11/17 08:48 2 SPRAYS Furosemide (Lasix Tab) 20 mg BID PRN PO 01/07/17 13:45 02/06/17 13:44 Future Hold Gabapentin (Neurontin Cap) 400 mg TID PO 01/07/17 21:00 02/06/17 20:59 01/11/17 14:19 400 MG Hydrochlorothiazide (Hydrochlorothiazide Tab) 25 mg DAILY PO 01/08/17 09:00 02/07/17 08:59 Future Hold 01/10/17 09:08 25 MG Metoprolol Succinate (Toprol Xl Tab) 25 mg QAM PO 01/08/17 09:00 02/07/17 08:59 01/11/17 08:49 25 MG Montelukast Sodium (Singulair Tab) 10 mg DAILY PO 01/08/17 09:00 02/07/17 08:59 01/11/17 08:49 10 MG Nystatin (Mycostatin Susp) 5 ml QID PO 01/07/17 17:00 01/26/17 16:59 01/11/17 12:58 5 ML Orphenadrine Citrate (Norflex Tab) 100 mg BID PO 01/07/17 21:00 02/06/17 20:59 Future Hold 01/10/17 09:08 100 MG Pantoprazole Sodium (Protonix Tab) 40 mg DAILY PO 01/08/17 09:00 02/07/17 08:59 01/11/17 08:50 40 MG Trazodone HCl (Desyrel Tab) 300 mg HS PO 01/07/17 21:00 02/06/17 20:59 01/10/17 21:27 300 MG Docusate Sodium (coLACE CAP) 100 mg TID PRN PO 01/07/17 13:45 02/06/17 13:44 Insulin Aspart (novoLOG ASPART) SLIDING SCALE ACHS SC 01/08/17 12:00 02/07/17 11:59 01/11/17 17:34 11 UNITS Glucose (Glucose 40% Gel) 15-30 GRAMS 15 GRAMS... UD PRN PO 01/08/17 10:00 02/07/17 09:59 Glucose (Glucose Chew Tab) 4-8 Tablets 4 Tabl... UD PRN PO 01/08/17 10:00 02/07/17 09:59 Dextrose (Dextrose 50% 50ML Syringe) 25-50ML OF 50% DW IV FOR... UD PRN IV 01/08/17 10:00 02/07/17 09:59 Glucagon (Glucagon Inj) 1 mg UD PRN SQ 01/08/17 10:00 02/07/17 09:59 Metformin HCl (Glucophage Tab) 500 mg BIDM PO 01/08/17 17:45 02/07/17 17:44 01/11/17 17:35 500 MG Diazepam (Valium Tab) 5 mg Taper TID PO 01/10/17 14:00 01/16/17 13:59 01/11/17 14:19 5 MG Oxycodone HCl (Roxicodone Immediate Rel Tab) 10 mg Taper QID PO 01/10/17 12:00 01/18/17 11:59 01/11/17 17:19 10 MG Objective Vital Signs Date Time Temp Pulse Resp B/P Pulse Ox O2 Delivery O2 Flow Rate FiO2 01/11/17 06:33 36.7 71 18 132/80 Physical Exam General Appearance: no apparent distress Abdomen: normal bowel sounds, non tender, soft Extremities: normal inspection, no pedal edema Neurologic/Psychiatric: + pertinent finding (mild residual slurring of speech, left sided weakness, but improved strength, motor boss strength of left decreased, left hand/finger movements decreased) Laboratory Results Last 24 Hours Test 01/10/17 20:36 01/11/17 07:05 01/11/17 07:47 01/11/17 12:15 Bedside Glucose 138 mg/dl 144 mg/dl 131 mg/dl Sodium Level 142 mmol/L Potassium Level 4.0 mmol/L Chloride Level 104 mmol/L Carbon Dioxide Level 29 mmol/L Anion Gap 9.0 mmol/L Blood Urea Nitrogen 27 mg/dl Creatinine 1.30 mg/dl Est Creatinine Clear Calc Drug Dose 90.5 ml/min Estimated GFR () 78.0 Estimated GFR (Non- 67.3 BUN/Creatinine Ratio 20.9 Random Glucose 130 mg/dl Calcium Level 9.2 mg/dl Magnesium Level 2.2 mg/dl Test 01/11/17 16:35 Bedside Glucose 139 mg/dl Assessment and Plan This is a 41 year old male with a PMH of recent CVA (post-cardiac cath), DM2, HTN, non-obstructive CAD presents to the mental health unit for suicidal ideation and found to have urinary retention with acute kidney injury Acute Kidney Injury secondary to Urinary Retention patient states he was once diagnosed with prostate enlargement was once placed on a medication to help him urinate, does not recall what after his stroke in December 2016, he has been retaining urine and self catheterizing at home states that he could urinate in the mornings, but after that needs to cath Renal U/S = negative will start Flomax, and watch how he does hold diuretics at this time creat down to 1.3 from 1.5 and improving will monitor PRP Recent CVA continue current antiplatelet therapy: aspirin + plavix statin dose should be increased, though will speak to the patient about side effects continue gabapentin for symptoms DM2 continue metformin - monitor kidney function with metformin use continue insulin dose as it is HTN blood pressure is stable, continue current medications DVT ppx ambulation, SCDs FULL CODE
[2017-01-11 21:30] VITALS: BP 122/68; PULSE 84
[2017-01-11] MEDS: TRAZODONE HCL 100 MG TAB PO SCH (21:31)
[2017-01-12 06:53] VITALS: BP_SYST 126; BP_SYST 142; BP_DIAS 77; BP_DIAS 82; PULSE 76; PULSE 78; TEMP 36.8
[2017-01-12] MEDS: INSULIN ASPART 100 UNITS/ML 3 ML PEN SC SCH ×4 (08:00→21:46)
[2017-01-12] MEDS: OXYCODONE HCL IR 5 MG TAB (IMMEDIATE RELEASE) PO SCH ×3 (08:59→21:44)
[2017-01-12] MEDS: BUDESONIDE/FORMOTEROL FUMARATE 160/4.5 60 PUFFS/INHALER INH SCH ×2 (09:44→21:43)
[2017-01-12] MEDS: FLUTICASONE PROPIONATE NA SPR 16 GM BTL NAE SCH (09:44)
[2017-01-12] MEDS: MONTELUKAST SOD 10 MG TAB PO SCH (09:45)
[2017-01-12] MEDS: CLOPIDOGREL BISULFATE 75 MG TAB PO SCH (09:45)
[2017-01-12] MEDS: GABAPENTIN 400 MG CAP PO SCH ×3 (09:45→21:43)
[2017-01-12] MEDS: NYSTATIN SUSP 500,000 U/5 ML UDC PO SCH ×4 (09:45→21:43)
[2017-01-12] MEDS: ASPIRIN 81 MG ECTAB PO SCH (09:45)
[2017-01-12] MEDS: METOPROLOL SUCC 25MG EXT REL TAB PO SCH (09:46)
[2017-01-12] MEDS: PANTOprazole SOD 40 MG TAB PO SCH (09:46)
[2017-01-12] MEDS: DIAZEPAM 5MG TAB PO SCH ×2 (09:46→21:44)
[2017-01-12] MEDS: TAMSULOSIN HCL 0.4 MG CAP PO SCH (09:47)
[2017-01-12] MEDS: FENOFIBRATE 48 MG TAB PO SCH (09:47)
[2017-01-12] MEDS: METFORMIN HCL 500 MG TAB PO SCH ×2 (09:48→17:29)
[2017-01-12] MEDS: ATORVASTATIN 20 MG TAB PO SCH (09:48)
[2017-01-12 10:07] LABS: CALCIUM 9.2 mg/dl (8.5-10.1); CREATININE 1.3 mg/dl (0.60-1.40); MAGNESIUM 2.1 mg/dl (1.8-2.4); POTASSIUM 4.2 mmol/L (3.5-5.1)
--- NOTE | 2017-01-12 11:13 | Psychiatric Progress Notes ---
Progress Note Date of Service Jan 12, 2017. Interval History Gerber Ryan is a 41-year-old gentleman from [place], [place], admitted to our unit on a 302 involuntary commitment having made statements of suicide to stop eating and taking his meds to . Chief Complaint "I need some sleep". Subjective Patient was seen & assessed interval progress reviewed with Treatment Team. BZD and opiate are being tapered 2/2 h/o abuse. Medicine following and noted downtrending creat yesterday. He is on a 303. Pt reports labile mood preceding stroke which included frequent tearfulness, irritability, and periods of insomnia. He believes trazodone was increased from 100 mg nightly to 300 mg nightly while at [facility] post stroke. He complains of continued very poor sleep. He reports continued frequent tearfulness and requests help for that. He acknowledges making comments about starving himself but reports to me that he never made any specific threat to harm himself. He denies suicidal intent or plan today and states that he hopes he can return home and participate in intensive psychiatric follow-up as an outpatient. He recalls that he has been treated on Seroquel in the past up to 400 mg daily and believes it was effective for sleep and does not recall gaining weight on the medication. He believes it was stopped when he lost insurance coverage. He recalls a very poor response to Cymbalta which made him excessively sedated. Review of Systems Constitutional: + fatigue, + problem reported (insomnia) Neurologic: + paralysis, + weakness Psychiatric: + anxiety, + depression symptoms, + insomnia Sleep Information Total Hours of Sleep: 8.50 Meal Information Percent of Breakfast Consumed: 75 Percent of Lunch Consumed: 100 Percent of Dinner Consumed: 100 Mental Status Exam During interview pt is: alert and oriented, cooperative Appearance: appropriately groomed, other Eye contact is: fair Motor behavior is: other (walking independently without a cane. Left hemiparesis) Speech: other (dysarthric but able to understand) Affect: other (largely blunted. does become abruptly tearful) Mood is: depressed Thought process: concrete Thought content: reality based without delusions Suicidal thought are: denied Homicidal thoughts are: denied Hallucinations: denies auditory Cognition: other (memory and attention are impaired) Intelligence estimated to be: below average Insight: severely impaired Judgement: severely impaired Summary of Past History 01/11/17 Spoke with nurse at [facility] in [place], [phone]. She confirmed that Gerber has been a client of their pain management clinic, but in October the patient altered his rx for Roxycodone 15 mg. 5X daily by scratching out the Do Not Fill Until date. He was caught and they will no longer prescribe narcs, but he may continue to receive care in their clinic with injections or other conservative measures. Impression The patient is now here on a 303 commitment. OT and PT are recommending ongoing therapy and if discharged, that he have 24/ care. His friends who were previously helping, are no longer willing to provide care. Adult protective services has been called and we will be completing the appropriate paperwork for that and for potential assisted living placement if needed. Our first choice would be to establish the OP care he needs to afford him the chance to continuing living independently, but there are limitations to this given that he lives in a second floor walk up and has no family to care for him. His mood is reactive and today is very concerned about his medical condition. We have now confirmed that he had been seeing pain management, but will no longer be prescribed narcs because he altered a script. Opiate taper is in place. He will continue to require inpatient treatment until an appropriate disposition is arranged. Continued Inpatient Care The patient requires inpatient care due to his inability to care for himself outside of a structured environment. Plan (1) Suicidal ideation Suicide checks for safety. Monitor oral intake and kidney function, as patient had not been eating or drinking prior to admission in an attempt to end his life, and showed signs of dehydration on laboratories. Encourage the patient to attend and participate in group and individual counseling. Family meeting with petitioner or other family member/support person - he is refusing. (2) Bipolar disorder 01/08 -He is currently on Neurontin 400 mg t.i.d. for back pain, which could serve as a very weak mood stabilizer. We will need to get records from [facility] to determine past medication trials. -Would like to start an SSRI, but would like to see the records regarding his history with SSRIs in the past. -Encourage good sleep-wake cycles. -Coordinate with Nayelyar with whom he supposedly has an appointment this week. 01/09 - Refusing to sign ROIs for [facility] or friends/family. Will file for 303 with hearing tomorrow as is depressed and overdosing on meds, refused to eat and drink with threats of suicide and had kidney dysfunction on admission due to dehydration, refusing to care for multiple medical problems and refused to take medications as prescribed or seek appropriate levels of care, and unable to care for his basic needs independently. 01/10 - 303 granted. - Today says willing to involve Shavon, who will be his primary support at discharge. Will need family meeting with her and possibly Kim, if she is also going to be helping him at home. He is refusing recommendations for inpatient PT or assisted living, and is only willing to return home. PT and OT have recommended 24/ in home care, so will need to explore if that is feasible. 01/12 - Patient describing long-standing affective lability complicating acute treatment for depressive symptoms. Must consider recent dose escalation of trazodone may be either beneficial for his mood with some time or possibly may precipitate more acute cycling. He does not find it helpful for sleep. We'll start Seroquel 25 mg by mouth daily at bedtime at least temporarily for sleep and consider titration for more effective mood stabilization, which may allow for more aggressive use of antidepressant pharmacotherapy down the road. He does have a history of elevated hemoglobin A1c, triglycerides, and cholesterol in December. He does not recall a history of waking associated with Seroquel in the past. We reviewed risks and benefits associated with the medication and he verbalized understanding. (3) Opiate abuse, continuous 01/09 - started taper off oxycodone, due to abuse of this medication 01/10 - continue taper off oxycodone and start taper off Valium. Patient has been abusing these medications, took 20 tabs of oxycodone in less than 24 hours, and does not have an identified outpatient physician willing to prescribe these medications. In addition, opiate and benzos together are contraindicated and increase the risk of lethal overdose. He has demonstrated inability to take these medications appropriately or safely at home, and do not recommend he continue on them outside a controlled and supervised environment. Will need to taper off them here in order to prevent withdrawal at discharge. It appears they were started in the hospital and continued at [facility], but have not been prescribed by an outpatient provider, and he is refusing assisted living or other supervised living where his medications would be dispensed to him. Patient informed of tapers. (4) Intellectual disability (5) YOLA (acute kidney injury) 01/09 - Creatinine and BUN elevated on admission. Patient eating some here, will recheck labs today. Cr 1.5, BUN 27. Both values have been elevated during most recent medical admission, but were normal at the beginning of Dec. and during Nov. and Oct. admissions. Will consult medicine to determine need for further workup and if any of his medications need to be changed due to persistent kidney dysfunction. Discussed with Dr. Ahuja, who agreed with plan to taper off medications if not indicated, including oxycodone and diazepam. 01/12 - creat downtrending at 1.3 today. medicine following (6) HTN (hypertension) Continue hydrochlorothiazide, metoprolol, and Lasix p.r.n. Monitor BPs. (7) Chronic pain [facility] to confirm dosing of narcotics. His last few Rxs were from inpatient doctors. Unclear if he has an outpatient prescriber for narcotics. Per 302 petition, he was cheeking pain pills in the hospital and brought them home, then was abusing them at home. His UDS was negative for benzos on admission, indicating that he was not taking them as prescribed. He filled a 5 day prescription for oxycodone from Dr. Caro on 01/04/17, so should have bad enough to last him through 01/09, but on admission 01/07 UDS was negative for opiates (but positive for benzos and barbiturates). Nursing to do mouth checks here, and will coordinate with outpatient providers due to concerns for opiate abuse. 01/09 - After review of above information, will taper off of oxycodone, and in the meantime, monitor closely for cheeking/diversion. 01/11 - Confirmed that he had been seen for pain management with [facility], but altered a script in October so no longer getting controlled substances from them, but can return for conservative treatment. 01/12 - discussed consideration for very gentle snri trial, however, he believes he failed to tolerate Cymbalta in the past (8) Obesity Dietary consult to help the patient makes food choices with respect to all of his medical conditions. (9) Asthma (10) Diabetes mellitus type I Diabetic diet. Continue home meds and insulin sliding scale. He is refusing to take insulin at home, although it has been recommended. Consult diabetic pharmacist. Consider need for hospitalist consult. 01/10 - BG remains elevated, and not on insulin at home, but requiring it here. Hgb A1C elevated at 7.5 on 12/27/16. Will consult medicine for recommendations, as patient will likely be going home at discharge. Unclear who is following him as an outpatient. (11) Ischemic stroke - PT/OT consults for treatment here and recommendations for disposition/level of care needed at discharge. Reportedly left [facility] last week. Would like to review their records, but he refused to sign an LIZA. - Assist the patient with ADLs as necessary. - The patient has trouble voiding and self caths at home. We will monitor I\\T\\ O. - Continue home medications including Plavix and aspirin. (12) Nicotine addiction Encourage the patient to reduce or quit. We will offered nicotine patch or Nicorette gum p.r.n. (13) Dyslipidemia Continue Lipitor and Tricor at home dosing. Discharge / Aftercare Planning Primary Care Physician: Name: Jaxson Eldridge PA-C Psychiatrist: Name: Kim Therapist: Name: Kim Date of Appointment: Jan 09, 2017 Visit Code E&M Code: 57808 Risk Factors Assessment Male: Yes : Yes /single/: Yes Higher / Fall in social status: No Health problems: Yes Substance use disorders: Yes Previous psychiatric stay: No Smoker: Yes Protective Factors Assessment Yarsani beliefs: No : No Responsible for young children: No Employed: No Stable relationships: No Supportive family: No Data Vital Signs Last 24 Hrs: Date Time Temp Pulse Resp B/P Pulse Ox O2 Delivery O2 Flow Rate FiO2 01/12/17 06:53 36.8 78 17 126/77 76 142/82 01/11/17 21:30 84 122/68 Meds Administered Last 24 Hrs: Meds Administered (Past 24Hrs) Medications (Trade) Dose Ordered Sig/Ney Route Start Time Stop Time Status Last Admin Dose Admin Diazepam (Valium Tab) 5 mg Taper TID PO 01/10/17 14:00 01/16/17 13:59 01/12/17 09:46 5 MG Oxycodone HCl (Roxicodone Immediate Rel Tab) 10 mg Taper QID PO 01/10/17 12:00 01/18/17 11:59 01/12/17 08:59 10 MG Tamsulosin HCl (Flomax Cap) 0.4 mg QAM PO 01/12/17 09:00 02/11/17 08:59 01/12/17 09:47 0.4 MG Lab Results Last 24 Hrs: Last 24 Hours Test 01/11/17 12:15 01/11/17 16:35 01/11/17 20:55 01/12/17 07:50 Bedside Glucose 131 mg/dl 139 mg/dl 219 mg/dl 133 mg/dl Test 01/12/17 09:24 Sodium Level 142 mmol/L Potassium Level 4.2 mmol/L Chloride Level 104 mmol/L Carbon Dioxide Level 26 mmol/L Anion Gap 12.0 mmol/L Blood Urea Nitrogen 30 mg/dl Creatinine 1.30 mg/dl Est Creatinine Clear Calc Drug Dose 90.5 ml/min Estimated GFR () 78.0 Estimated GFR (Non- 67.3 BUN/Creatinine Ratio 23.0 Random Glucose 148 mg/dl Calcium Level 9.2 mg/dl Magnesium Level 2.1 mg/dl
--- NOTE | 2017-01-12 18:16 | Progress Note ---
Subjective Date of Service: Jan 12, 2017. Subjective Pt evaluation today including: conversation w/ patient, physical exam, lab review, review of studies, review of inpatient medication list Saw/examined the patient in room 327 He is doing okay, feeling fine urination improving slightly today Problem List Medical Problems: (1) Failure to thrive Status: Acute (2) Headache Status: Acute (3) Left sided chest pain Status: Acute (4) Self neglect Status: Acute Review of Systems Male : + problem reported (retention - improving), No dysuria, No urinary frequency Medications Current Inpatient Medications Medications (Trade) Dose Ordered Sig/Ney Route Start Time Stop Time Status Last Admin Dose Admin Acetaminophen (Tylenol Tab) 650 mg Q4H PRN PO 01/07/17 13:45 02/06/17 13:44 01/11/17 15:06 650 MG Bismuth Subsalicylate (Kaopectate Liqd) 15 ml PRN PRN PO 01/07/17 13:45 02/06/17 13:44 Al Hydroxide/Mg Hydroxide (Maalox Susp) 30 ml Q4H PRN PO 01/07/17 13:45 02/06/17 13:44 Magnesium Hydroxide (Milk Of Magnesia Susp) 30 ml DAILY PRN PO 01/07/17 13:45 02/06/17 13:44 Sodium Chloride ([place] Nasal [place]) PRN PRN NA 01/07/17 13:45 02/06/17 13:44 Hydroxyzine HCl (Vistaril Tab) 50 mg HSZ PRN PO 01/07/17 13:45 02/06/17 13:44 Hydroxyzine HCl (Vistaril Tab) 25 mg Q4H PRN PO 01/07/17 13:45 02/06/17 13:44 Aspirin (Ecotrin Tab) 81 mg DAILY PO 01/08/17 09:00 02/07/17 08:59 01/12/17 09:45 81 MG Atorvastatin Calcium (Lipitor Tab) 20 mg DAILY PO 01/08/17 09:00 02/07/17 08:59 01/12/17 09:48 20 MG Budesonide/ Formoterol Fumarate (Symbicort 160/ 4.5 Inh) 2 puffs BID INH 01/07/17 21:00 02/06/17 20:59 01/12/17 09:44 2 PUFFS Clopidogrel Bisulfate (plAVix TAB) 75 mg QAM PO 01/08/17 09:00 02/07/17 08:59 01/12/17 09:45 75 MG Dicyclomine HCl (Bentyl Cap) 10 mg QID PO 01/07/17 17:00 02/06/17 16:59 Future Hold 01/10/17 12:51 10 MG Fenofibrate (Tricor Tab) 48 mg DAILY PO 01/08/17 09:00 02/07/17 08:59 01/12/17 09:47 48 MG Fluticasone Propionate (Flonase Nasal [place]) 2 sprays DAILY CAROLEE 01/08/17 09:00 02/07/17 08:59 01/12/17 09:44 2 SPRAYS Furosemide (Lasix Tab) 20 mg BID PRN PO 01/07/17 13:45 02/06/17 13:44 Future Hold Gabapentin (Neurontin Cap) 400 mg TID PO 01/07/17 21:00 02/06/17 20:59 01/12/17 13:25 400 MG Hydrochlorothiazide (Hydrochlorothiazide Tab) 25 mg DAILY PO 01/08/17 09:00 02/07/17 08:59 Future Hold 01/10/17 09:08 25 MG Metoprolol Succinate (Toprol Xl Tab) 25 mg QAM PO 01/08/17 09:00 02/07/17 08:59 01/12/17 09:46 25 MG Montelukast Sodium (Singulair Tab) 10 mg DAILY PO 01/08/17 09:00 02/07/17 08:59 01/12/17 09:45 10 MG Nystatin (Mycostatin Susp) 5 ml QID PO 01/07/17 17:00 01/26/17 16:59 01/12/17 17:29 5 ML Orphenadrine Citrate (Norflex Tab) 100 mg BID PO 01/07/17 21:00 02/06/17 20:59 Future Hold 01/10/17 09:08 100 MG Pantoprazole Sodium (Protonix Tab) 40 mg DAILY PO 01/08/17 09:00 02/07/17 08:59 01/12/17 09:46 40 MG Trazodone HCl (Desyrel Tab) 300 mg HS PO 01/07/17 21:00 02/06/17 20:59 01/11/17 21:31 300 MG Docusate Sodium (coLACE CAP) 100 mg TID PRN PO 01/07/17 13:45 02/06/17 13:44 Insulin Aspart (novoLOG ASPART) SLIDING SCALE ACHS SC 01/08/17 12:00 02/07/17 11:59 01/12/17 17:35 7 UNITS Glucose (Glucose 40% Gel) 15-30 GRAMS 15 GRAMS... UD PRN PO 01/08/17 10:00 02/07/17 09:59 Glucose (Glucose Chew Tab) 4-8 Tablets 4 Tabl... UD PRN PO 01/08/17 10:00 02/07/17 09:59 Dextrose (Dextrose 50% 50ML Syringe) 25-50ML OF 50% DW IV FOR... UD PRN IV 01/08/17 10:00 02/07/17 09:59 Glucagon (Glucagon Inj) 1 mg UD PRN SQ 01/08/17 10:00 02/07/17 09:59 Metformin HCl (Glucophage Tab) 500 mg BIDM PO 01/08/17 17:45 02/07/17 17:44 01/12/17 17:29 500 MG Diazepam (Valium Tab) 5 mg Taper BID PO 01/10/17 14:00 01/16/17 13:59 01/12/17 09:46 5 MG Oxycodone HCl (Roxicodone Immediate Rel Tab) 10 mg Taper TID PO 01/10/17 12:00 01/18/17 11:59 01/12/17 13:25 10 MG Tamsulosin HCl (Flomax Cap) 0.4 mg QAM PO 01/12/17 09:00 02/11/17 08:59 01/12/17 09:47 0.4 MG Quetiapine Fumarate (seroQUEL TAB) 25 mg HS PO 01/12/17 22:00 02/11/17 21:59 Objective Vital Signs Date Time Temp Pulse Resp B/P Pulse Ox O2 Delivery O2 Flow Rate FiO2 01/12/17 06:53 36.8 78 17 126/77 76 142/82 01/11/17 21:30 84 122/68 Physical Exam General Appearance: no apparent distress, + obese Respiratory/Chest: no respiratory distress, no accessory muscle use Extremities: + pertinent finding (left sided weakness; left hand cook helper vegetable and finger movements decreased) Laboratory Results Last 24 Hours Test 01/11/17 20:55 01/12/17 07:50 01/12/17 09:24 01/12/17 11:15 Bedside Glucose 219 mg/dl 133 mg/dl 131 mg/dl Sodium Level 142 mmol/L Potassium Level 4.2 mmol/L Chloride Level 104 mmol/L Carbon Dioxide Level 26 mmol/L Anion Gap 12.0 mmol/L Blood Urea Nitrogen 30 mg/dl Creatinine 1.30 mg/dl Est Creatinine Clear Calc Drug Dose 90.5 ml/min Estimated GFR () 78.0 Estimated GFR (Non- 67.3 BUN/Creatinine Ratio 23.0 Random Glucose 148 mg/dl Calcium Level 9.2 mg/dl Magnesium Level 2.1 mg/dl Test 01/12/17 17:06 Bedside Glucose 118 mg/dl Assessment and Plan This is a 41 year old male with a PMH of recent CVA (post-cardiac cath), DM2, HTN, non-obstructive CAD presents to the mental health unit for suicidal ideation and found to have urinary retention with acute kidney injury Acute Kidney Injury secondary to Urinary Retention 01/12 creat down to 1.3 and stable started flomax yesterday improved urination as per patient will continue flomax and see how patient is doing hold off on urology consultation for now 01/11 patient states he was once diagnosed with prostate enlargement was once placed on a medication to help him urinate, does not recall what after his stroke in December 2016, he has been retaining urine and self catheterizing at home states that he could urinate in the mornings, but after that needs to cath Renal U/S = negative will start Flomax, and watch how he does hold diuretics at this time creat down to 1.3 from 1.5 and improving will monitor PRP Recent CVA continue current antiplatelet therapy: aspirin + plavix statin dose should be increased, though will speak to the patient about side effects continue gabapentin for symptoms DM2 continue metformin - monitor kidney function with metformin use continue insulin dose as it is HTN blood pressure is stable, continue current medications DVT ppx ambulation, SCDs FULL CODE
[2017-01-12] MEDS ORDERED: QUETIAPINE FUMARATE 25 MG TAB PO SCH (22:00)
[2017-01-12] MEDS: TRAZODONE HCL 100 MG TAB PO SCH (22:28)
[2017-01-13 07:04] VITALS: BP 127/80; PULSE 76; TEMP 36.9
[2017-01-13] MEDS: INSULIN ASPART 100 UNITS/ML 3 ML PEN SC SCH ×4 (08:00→22:03)
[2017-01-13] MEDS: ASPIRIN 81 MG ECTAB PO SCH (09:27)
[2017-01-13] MEDS: TAMSULOSIN HCL 0.4 MG CAP PO SCH (09:28)
[2017-01-13] MEDS: METFORMIN HCL 500 MG TAB PO SCH ×2 (09:28→17:41)
[2017-01-13] MEDS: ATORVASTATIN 20 MG TAB PO SCH (09:28)
[2017-01-13] MEDS: NYSTATIN SUSP 500,000 U/5 ML UDC PO SCH ×4 (09:28→22:00)
[2017-01-13] MEDS: GABAPENTIN 400 MG CAP PO SCH ×3 (09:29→22:00)
[2017-01-13] MEDS: PANTOprazole SOD 40 MG TAB PO SCH (09:29)
[2017-01-13] MEDS: CLOPIDOGREL BISULFATE 75 MG TAB PO SCH (09:29)
[2017-01-13] MEDS: OXYCODONE HCL IR 5 MG TAB (IMMEDIATE RELEASE) PO SCH ×3 (09:30→22:01)
[2017-01-13] MEDS: MONTELUKAST SOD 10 MG TAB PO SCH (09:30)
[2017-01-13] MEDS: DIAZEPAM 5MG TAB PO SCH ×2 (09:31→22:01)
[2017-01-13] MEDS: METOPROLOL SUCC 25MG EXT REL TAB PO SCH (09:31)
[2017-01-13] MEDS: FENOFIBRATE 48 MG TAB PO SCH (09:31)
[2017-01-13] MEDS: BUDESONIDE/FORMOTEROL FUMARATE 160/4.5 60 PUFFS/INHALER INH SCH ×2 (09:39→22:00)
[2017-01-13] MEDS: FLUTICASONE PROPIONATE NA SPR 16 GM BTL NAE SCH (09:39)
[2017-01-13] MEDS ORDERED: SERTRALINE HCL 50 MG TAB PO ONE (11:19)
--- NOTE | 2017-01-13 11:26 | Psychiatric Progress Notes ---
Progress Note Date of Service Jan 13, 2017. Interval History Gerber Ryan is a 41-year-old gentleman from [place], [place], admitted to our unit on a 302 involuntary commitment having made statements of suicide to stop eating and taking his meds to . Chief Complaint "I feel the same but better today". Subjective Patient was seen & assessed interval progress reviewed with Treatment Team. Per staff, patient did not go to programming yesterday instead focusing on occupational therapy exercises for arm dexterity. Appeared to sleep better overnight. Patient reports that it still took him quite some time to fall asleep but did rest better once asleep. He denies any side effects this morning associated with initiation of Seroquel yesterday. He reports his sister will likely be able to stay with him to help care for him at home which he feels hopeful about. Comments that he would consider going to [facility] for therapy as a backup plan. Complains of long-standing episodic nightmares that sound to be vivid and associated with some somnambulations. denies nightmares last night. Denies symptoms of withdrawal associated with benzodiazepine and opiate taper. Denies suicidal ideation. He denies a history of excessive activation or nasrin associated with antidepressant treatment in the past and does believe that he was treated with Zoloft and tolerated well at some point in the past. Review of Systems Denies dizziness or excessive sedation or confusion Sleep Information Total Hours of Sleep: 6.50 Meal Information Percent of Breakfast Consumed: 50 Percent of Lunch Consumed: 100 Percent of Dinner Consumed: 100 Mental Status Exam During interview pt is: alert and oriented, cooperative Appearance: appropriately groomed, other Eye contact is: fair Motor behavior is: other (walking independently without a cane. Left hemiparesis) Speech: other (dysarthric but able to understand) Affect: blunted Mood is: other (the same but better) Thought process: concrete Thought content: reality based without delusions Suicidal thought are: denied Homicidal thoughts are: denied Hallucinations: denies auditory Cognition: other (memory and attention are impaired) Intelligence estimated to be: below average Insight: limited Judgement: limited Summary of Past History 01/11/17 Spoke with nurse at [facility] in [place], [phone]. She confirmed that Gerber has been a client of their pain management clinic, but in October the patient altered his rx for Roxycodone 15 mg. 5X daily by scratching out the Do Not Fill Until date. He was caught and they will no longer prescribe narcs, but he may continue to receive care in their clinic with injections or other conservative measures. Impression The patient is now here on a 303 commitment. OT and PT are recommending ongoing therapy and if discharged, that he have 24/ care. His friends who were previously helping, are no longer willing to provide care. Adult protective services has been called and we will be completing the appropriate paperwork for that and for potential assisted living placement if needed. Our first choice would be to establish the OP care he needs to afford him the chance to continuing living independently, but there are limitations to this given that he lives in a second floor walk up and has no family to care for him. His mood is reactive and today is very concerned about his medical condition. We have now confirmed that he had been seeing pain management, but will no longer be prescribed narcs because he altered a script. Opiate taper is in place. He will continue to require inpatient treatment until an appropriate disposition is arranged. Continued Inpatient Care The patient requires inpatient care due to his inability to care for himself outside of a structured environment. Plan (1) Suicidal ideation Suicide checks for safety. Monitor oral intake and kidney function, as patient had not been eating or drinking prior to admission in an attempt to end his life, and showed signs of dehydration on laboratories. Encourage the patient to attend and participate in group and individual counseling. Family meeting with petitioner or other family member/support person - he is refusing. (2) Bipolar disorder 01/08 -He is currently on Neurontin 400 mg t.i.d. for back pain, which could serve as a very weak mood stabilizer. We will need to get records from [facility] to determine past medication trials. -Would like to start an SSRI, but would like to see the records regarding his history with SSRIs in the past. -Encourage good sleep-wake cycles. -Coordinate with Alondra with whom he supposedly has an appointment this week. 01/09 - Refusing to sign ROIs for [facility] or friends/family. Will file for 303 with hearing tomorrow as is depressed and overdosing on meds, refused to eat and drink with threats of suicide and had kidney dysfunction on admission due to dehydration, refusing to care for multiple medical problems and refused to take medications as prescribed or seek appropriate levels of care, and unable to care for his basic needs independently. 01/10 - 303 granted. - Today says willing to involve Shavon, who will be his primary support at discharge. Will need family meeting with her and possibly Kim, if she is also going to be helping him at home. He is refusing recommendations for inpatient PT or assisted living, and is only willing to return home. PT and OT have recommended 24/ in home care, so will need to explore if that is feasible. 01/12 - Patient describing long-standing affective lability complicating acute treatment for depressive symptoms. Must consider recent dose escalation of trazodone may be either beneficial for his mood with some time or possibly may precipitate more acute cycling. He does not find it helpful for sleep. We'll start Seroquel 25 mg by mouth daily at bedtime at least temporarily for sleep and consider titration for more effective mood stabilization, which may allow for more aggressive use of antidepressant pharmacotherapy down the road. He does have a history of elevated hemoglobin A1c, triglycerides, and cholesterol in December. He does not recall a history of waking associated with Seroquel in the past. We reviewed risks and benefits associated with the medication and he verbalized understanding. 01/13 - Tolerated initiation of Seroquel well with some improvement in sleep. Will increase Seroquel to 50 mg daily at bedtime tonight - We'll reduce trazodone to 150 daily at bedtime to reduce serotonin activity overnight secondary to history of long-standing nightmares - Start Zoloft 25 mg by mouth every morning. Patient believes he has tolerated the procedure well in the past. Will obviously need to watch for excessive activation or increased mood cycling given bipolar history (3) Opiate abuse, continuous 01/09 - started taper off oxycodone, due to abuse of this medication 01/10 - continue taper off oxycodone and start taper off Valium. Patient has been abusing these medications, took 20 tabs of oxycodone in less than 24 hours, and does not have an identified outpatient physician willing to prescribe these medications. In addition, opiate and benzos together are contraindicated and increase the risk of lethal overdose. He has demonstrated inability to take these medications appropriately or safely at home, and do not recommend he continue on them outside a controlled and supervised environment. Will need to taper off them here in order to prevent withdrawal at discharge. It appears they were started in the hospital and continued at [facility], but have not been prescribed by an outpatient provider, and he is refusing assisted living or other supervised living where his medications would be dispensed to him. Patient informed of tapers. 01/13 - No signs of withdrawal associated with taper so far (4) Intellectual disability (5) YOLA (acute kidney injury) 01/09 - Creatinine and BUN elevated on admission. Patient eating some here, will recheck labs today. Cr 1.5, BUN 27. Both values have been elevated during most recent medical admission, but were normal at the beginning of Dec. and during Nov. and Oct. admissions. Will consult medicine to determine need for further workup and if any of his medications need to be changed due to persistent kidney dysfunction. Discussed with Dr. Ahuja, who agreed with plan to taper off medications if not indicated, including oxycodone and diazepam. 01/12 - creat downtrending at 1.3 today. medicine following (6) HTN (hypertension) Continue hydrochlorothiazide, metoprolol, and Lasix p.r.n. Monitor BPs. (7) Chronic pain [facility] to [facility] dosing of [facility]. His last few Rxs were from inpatient doctors. Unclear if he has an outpatient prescriber for narcotics. Per 302 petition, he was cheeking pain pills in the hospital and brought them home, then was abusing them at home. His UDS was negative for benzos on admission, indicating that he was not taking them as prescribed. He filled a 5 day prescription for oxycodone from Dr. Caro on 01/04/17, so should have bad enough to last him through 01/09, but on admission 01/07 UDS was negative for opiates (but positive for benzos and barbiturates). Nursing to do mouth checks here, and will coordinate with outpatient providers due to concerns for opiate abuse. 01/09 - After review of above information, will taper off of oxycodone, and in the meantime, monitor closely for cheeking/diversion. 01/11 - Confirmed that he had been seen for pain management with [facility], but altered a script in October so no longer getting controlled substances from them, but can return for conservative treatment. 01/12 - discussed consideration for very gentle snri trial, however, he believes he failed to tolerate Cymbalta in the past (8) Obesity Dietary consult to help the patient makes food choices with respect to all of his medical conditions. (9) Asthma (10) Diabetes mellitus type I Diabetic diet. Continue home meds and insulin sliding scale. He is refusing to take insulin at home, although it has been recommended. Consult diabetic pharmacist. Consider need for hospitalist consult. 01/10 - BG remains elevated, and not on insulin at home, but requiring it here. Hgb A1C elevated at 7.5 on 12/27/16. Will consult medicine for recommendations, as patient will likely be going home at discharge. Unclear who is following him as an outpatient. (11) Ischemic stroke - PT/OT consults for treatment here and recommendations for disposition/level of care needed at discharge. Reportedly left [facility] last week. Would like to review their records, but he refused to sign an LIZA. - Assist the patient with ADLs as necessary. - The patient has trouble voiding and self caths at home. We will monitor I\\T\\ O. - Continue home medications including Plavix and aspirin. (12) Nicotine addiction Encourage the patient to reduce or quit. We will offered nicotine patch or Nicorette gum p.r.n. (13) Dyslipidemia Continue Lipitor and Tricor at home dosing. Discharge / Aftercare Planning Primary Care Physician: Name: Jaxson Eldridge PA-C Psychiatrist: Name: Kim Therapist: Name: Kim Date of Appointment: Jan 09, 2017 Visit Code E&M Code: 94736 Risk Factors Assessment Male: Yes : Yes /single/: Yes Higher / Fall in social status: No Health problems: Yes Substance use disorders: Yes Previous psychiatric stay: No Smoker: Yes Protective Factors Assessment Restoration beliefs: No : No Responsible for young children: No Employed: No Stable relationships: No Supportive family: No Data Vital Signs Last 24 Hrs: Date Time Temp Pulse Resp B/P Pulse Ox O2 Delivery O2 Flow Rate FiO2 01/13/17 07:04 36.9 76 18 127/80 Meds Administered Last 24 Hrs: Meds Administered (Past 24Hrs) Medications (Trade) Dose Ordered Sig/Ney Route Start Time Stop Time Status Last Admin Dose Admin Tamsulosin HCl (Flomax Cap) 0.4 mg QAM PO 01/12/17 09:00 02/11/17 08:59 01/13/17 09:28 0.4 MG Quetiapine Fumarate (seroQUEL TAB) 25 mg HS PO 01/12/17 22:00 02/11/17 21:59 01/12/17 22:28 25 MG Lab Results Last 24 Hrs: Last 24 Hours Test 01/12/17 17:06 01/12/17 20:51 01/13/17 09:34 Bedside Glucose 118 mg/dl 112 mg/dl 142 mg/dl
--- NOTE | 2017-01-13 17:37 | Progress Note ---
Subjective Date of Service: Jan 13, 2017. Subjective Pt evaluation today including: conversation w/ patient, physical exam, review of inpatient medication list Saw/examined the patient in room 327 He's doing well today no longer requiring catheter to urinate, urinating on his own now Problem List Medical Problems: (1) Failure to thrive Status: Acute (2) Headache Status: Acute (3) Left sided chest pain Status: Acute (4) Self neglect Status: Acute Review of Systems Male : No dysuria, No hematuria, No incontinence, No nocturia more than once/ night, No slowing stream, No urinary frequency Medications Current Inpatient Medications Medications (Trade) Dose Ordered Sig/Ney Route Start Time Stop Time Status Last Admin Dose Admin Acetaminophen (Tylenol Tab) 650 mg Q4H PRN PO 01/07/17 13:45 02/06/17 13:44 01/11/17 15:06 650 MG Bismuth Subsalicylate (Kaopectate Liqd) 15 ml PRN PRN PO 01/07/17 13:45 02/06/17 13:44 Al Hydroxide/Mg Hydroxide (Maalox Susp) 30 ml Q4H PRN PO 01/07/17 13:45 02/06/17 13:44 Magnesium Hydroxide (Milk Of Magnesia Susp) 30 ml DAILY PRN PO 01/07/17 13:45 02/06/17 13:44 Sodium Chloride ([place] Nasal [place]) PRN PRN NA 01/07/17 13:45 02/06/17 13:44 Hydroxyzine HCl (Vistaril Tab) 50 mg HSZ PRN PO 01/07/17 13:45 02/06/17 13:44 Hydroxyzine HCl (Vistaril Tab) 25 mg Q4H PRN PO 01/07/17 13:45 02/06/17 13:44 Aspirin (Ecotrin Tab) 81 mg DAILY PO 01/08/17 09:00 02/07/17 08:59 01/13/17 09:27 81 MG Atorvastatin Calcium (Lipitor Tab) 20 mg DAILY PO 01/08/17 09:00 02/07/17 08:59 01/13/17 09:28 20 MG Budesonide/ Formoterol Fumarate (Symbicort 160/ 4.5 Inh) 2 puffs BID INH 01/07/17 21:00 02/06/17 20:59 01/13/17 09:39 2 PUFFS Clopidogrel Bisulfate (plAVix TAB) 75 mg QAM PO 01/08/17 09:00 02/07/17 08:59 01/13/17 09:29 75 MG Dicyclomine HCl (Bentyl Cap) 10 mg QID PO 01/07/17 17:00 02/06/17 16:59 Future Hold 01/10/17 12:51 10 MG Fenofibrate (Tricor Tab) 48 mg DAILY PO 01/08/17 09:00 02/07/17 08:59 01/13/17 09:31 48 MG Fluticasone Propionate (Flonase Nasal [place]) 2 sprays DAILY CAROLEE 01/08/17 09:00 02/07/17 08:59 01/13/17 09:39 2 SPRAYS Furosemide (Lasix Tab) 20 mg BID PRN PO 01/07/17 13:45 02/06/17 13:44 Future Hold Gabapentin (Neurontin Cap) 400 mg TID PO 01/07/17 21:00 02/06/17 20:59 01/13/17 13:47 400 MG Hydrochlorothiazide (Hydrochlorothiazide Tab) 25 mg DAILY PO 01/08/17 09:00 02/07/17 08:59 Future Hold 01/10/17 09:08 25 MG Metoprolol Succinate (Toprol Xl Tab) 25 mg QAM PO 01/08/17 09:00 02/07/17 08:59 01/13/17 09:31 25 MG Montelukast Sodium (Singulair Tab) 10 mg DAILY PO 01/08/17 09:00 02/07/17 08:59 01/13/17 09:30 10 MG Nystatin (Mycostatin Susp) 5 ml QID PO 01/07/17 17:00 01/26/17 16:59 01/13/17 12:20 5 ML Orphenadrine Citrate (Norflex Tab) 100 mg BID PO 01/07/17 21:00 02/06/17 20:59 Future Hold 01/10/17 09:08 100 MG Pantoprazole Sodium (Protonix Tab) 40 mg DAILY PO 01/08/17 09:00 02/07/17 08:59 01/13/17 09:29 40 MG Docusate Sodium (coLACE CAP) 100 mg TID PRN PO 01/07/17 13:45 02/06/17 13:44 Insulin Aspart (novoLOG ASPART) SLIDING SCALE ACHS SC 01/08/17 12:00 02/07/17 11:59 01/13/17 12:00 8 UNITS Glucose (Glucose 40% Gel) 15-30 GRAMS 15 GRAMS... UD PRN PO 01/08/17 10:00 02/07/17 09:59 Glucose (Glucose Chew Tab) 4-8 Tablets 4 Tabl... UD PRN PO 01/08/17 10:00 02/07/17 09:59 Dextrose (Dextrose 50% 50ML Syringe) 25-50ML OF 50% DW IV FOR... UD PRN IV 01/08/17 10:00 02/07/17 09:59 Glucagon (Glucagon Inj) 1 mg UD PRN SQ 01/08/17 10:00 02/07/17 09:59 Metformin HCl (Glucophage Tab) 500 mg BIDM PO 01/08/17 17:45 02/07/17 17:44 01/13/17 09:28 500 MG Diazepam (Valium Tab) 5 mg Taper BID PO 01/10/17 14:00 01/16/17 13:59 01/13/17 09:31 5 MG Oxycodone HCl (Roxicodone Immediate Rel Tab) 10 mg Taper TID PO 01/10/17 12:00 01/18/17 11:59 01/13/17 13:48 10 MG Tamsulosin HCl (Flomax Cap) 0.4 mg QAM PO 01/12/17 09:00 02/11/17 08:59 01/13/17 09:28 0.4 MG Quetiapine Fumarate (seroQUEL TAB) 50 mg HS PO 01/13/17 22:00 02/12/17 21:59 Trazodone HCl (Desyrel Tab) 150 mg HS PO 01/13/17 22:00 02/12/17 21:59 Sertraline HCl (Zoloft Tab) 25 mg QAM PO 01/14/17 09:00 02/13/17 08:59 Objective Vital Signs Date Time Temp Pulse Resp B/P Pulse Ox O2 Delivery O2 Flow Rate FiO2 01/13/17 07:04 36.9 76 18 127/80 Physical Exam General Appearance: no apparent distress Respiratory/Chest: no respiratory distress, no accessory muscle use Abdomen: normal bowel sounds, non tender, soft Neurologic/Psychiatric: + pertinent finding (left sided weakness persists, though improving) Laboratory Results Last 24 Hours Test 01/12/17 20:51 01/13/17 09:34 01/13/17 12:12 01/13/17 17:10 Bedside Glucose 112 mg/dl 142 mg/dl 117 mg/dl 139 mg/dl Assessment and Plan This is a 41 year old male with a PMH of recent CVA (post-cardiac cath), DM2, HTN, non-obstructive CAD presents to the mental health unit for suicidal ideation and found to have urinary retention with acute kidney injury Acute Kidney Injury secondary to Urinary Retention 01/13 check PRP in AM continue Flomax no longer requiring catheter should continue Flomax and see urology as outpatient 01/12 creat down to 1.3 and stable started flomax yesterday improved urination as per patient will continue flomax and see how patient is doing hold off on urology consultation for now 01/11 patient states he was once diagnosed with prostate enlargement was once placed on a medication to help him urinate, does not recall what after his stroke in December 2016, he has been retaining urine and self catheterizing at home states that he could urinate in the mornings, but after that needs to cath Renal U/S = negative will start Flomax, and watch how he does hold diuretics at this time creat down to 1.3 from 1.5 and improving will monitor PRP Recent CVA continue current antiplatelet therapy: aspirin + plavix statin dose should be increased, though will speak to the patient about side effects continue gabapentin for symptoms DM2 continue metformin - monitor kidney function with metformin use continue insulin dose as it is HTN blood pressure is stable, continue current medications DVT ppx ambulation, SCDs FULL CODE
[2017-01-13] MEDS ORDERED: QUETIAPINE FUMARATE 25 MG TAB PO SCH (22:00)
[2017-01-13] MEDS: TRAZODONE HCL 100 MG TAB PO SCH (22:16)
[2017-01-14 06:54] VITALS: BP 135/77; PULSE 71; TEMP 36.7
[2017-01-14 07:00] LABS: BUN/CREATININE RATIO 25.5 (10-20); CALCIUM 8.7 mg/dl (8.5-10.1); CREATININE 1.1 mg/dl (0.60-1.40)
[2017-01-14] MEDS: FLUTICASONE PROPIONATE NA SPR 16 GM BTL NAE SCH (08:07)
[2017-01-14] MEDS: BUDESONIDE/FORMOTEROL FUMARATE 160/4.5 60 PUFFS/INHALER INH SCH ×2 (08:07→22:21)
[2017-01-14] MEDS: ASPIRIN 81 MG ECTAB PO SCH (08:07)
[2017-01-14] MEDS: METFORMIN HCL 500 MG TAB PO SCH ×2 (08:08→17:33)
[2017-01-14] MEDS: ATORVASTATIN 20 MG TAB PO SCH (08:08)
[2017-01-14] MEDS: TAMSULOSIN HCL 0.4 MG CAP PO SCH (08:08)
[2017-01-14] MEDS: CLOPIDOGREL BISULFATE 75 MG TAB PO SCH (08:09)
[2017-01-14] MEDS: METOPROLOL SUCC 25MG EXT REL TAB PO SCH (08:09)
[2017-01-14] MEDS: FENOFIBRATE 48 MG TAB PO SCH (08:09)
[2017-01-14] MEDS: GABAPENTIN 400 MG CAP PO SCH ×3 (08:09→22:23)
[2017-01-14] MEDS: MONTELUKAST SOD 10 MG TAB PO SCH (08:09)
[2017-01-14] MEDS: PANTOprazole SOD 40 MG TAB PO SCH (08:09)
[2017-01-14] MEDS: OXYCODONE HCL IR 5 MG TAB (IMMEDIATE RELEASE) PO SCH ×3 (08:12→22:23)
[2017-01-14] MEDS: DIAZEPAM 5MG TAB PO SCH ×2 (08:12→22:24)
[2017-01-14] MEDS ORDERED: SERTRALINE HCL 50 MG TAB PO SCH (09:00)
[2017-01-14] MEDS: INSULIN ASPART 100 UNITS/ML 3 ML PEN SC SCH ×4 (09:03→22:27)
[2017-01-14] MEDS: NYSTATIN SUSP 500,000 U/5 ML UDC PO SCH ×4 (09:04→22:23)
--- NOTE | 2017-01-14 11:00 | Psychiatric Progress Notes ---
Progress Note Date of Service Jan 14, 2017. Interval History Gerber Ryan is a 41-year-old gentleman from [place], [place], admitted to our unit on a 302 involuntary commitment having made statements of suicide to stop eating and taking his meds to . Chief Complaint "Great". Subjective Patient was seen & assessed interval progress reviewed with Treatment Team. Staff report he had a difficult weekend, was tearful at times, but brighter affect yesterday. He is saying he wants his sister to be his 24 hour a day caregiver. Today he reports "great" mood, says he is a 10 out of 10, and reports good sleep and appetite. He is working on his PT exercises. He talked to his mother and sister Tracy, and says she is "going to try to set it up so she gets paid to take care of me." She lives in [place], which is 15 minutes from his home. He doesn't know if this process has been started or what it entails. He says he needs help with cleaning, cooking, bathing, and transportation. [facility]. He denies suicidal thoughts. He would like to increase his quetiapine dose, saying it takes him a long time to fall asleep. Sleep Information Total Hours of Sleep: 6.50 Meal Information Percent of Breakfast Consumed: 100 Percent of Lunch Consumed: 100 Percent of Dinner Consumed: 100 Mental Status Exam During interview pt is: alert and oriented, cooperative Appearance: appropriately groomed Eye contact is: good Motor behavior is: other (walking independently without a cane. Left hemiparesis) Speech: other (dysarthric but able to understand) Affect: blunted Mood is: other ("great") Thought process: concrete Thought content: reality based without delusions Suicidal thought are: denied Homicidal thoughts are: denied Hallucinations: denies auditory Cognition: language grossly intact, other (memory and attention are impaired) Intelligence estimated to be: below average Insight: limited Judgement: limited Summary of Past History 01/11/17 Spoke with nurse at [facility] in [place], [phone]. She confirmed that Gerber has been a client of their pain management clinic, but in October the patient altered his rx for Roxicodone 15 mg. 5X daily by scratching out the Do Not Fill Until date. He was caught and they will no longer prescribe narcs, but he may continue to receive care in their clinic with injections or other conservative measures. Impression The patient is now here on a 303 commitment. OT and PT are recommending ongoing therapy and if discharged, that he have 27/05 care. His friends who were previously helping, are no longer willing to provide care. Adult protective services has been called. Our first choice would be to establish the OP care he needs to afford him the chance to continuing living independently , but there are limitations to this given that he lives in a second floor walk up and has no family to care for him. We have now confirmed that he had been seeing pain management, but will no longer be prescribed narcs because he altered a script. Opiate taper is in place. He will continue to require inpatient treatment until an appropriate disposition is arranged. Continued Inpatient Care The patient requires inpatient care due to his inability to care for himself outside of a structured environment. Plan (1) Suicidal ideation Suicide checks for safety. Monitor oral intake and kidney function, as patient had not been eating or drinking prior to admission in an attempt to end his life, and showed signs of dehydration on laboratories. Encourage the patient to attend and participate in group and individual counseling. Family meeting with petitioner or other family member/support person - he is refusing. 01/14 - working on disposition. Patient says his sister Tracy will be his hat lining paster caregiver. Will need to contact her to determine if this is feasible. (2) Bipolar disorder 01/08 -He is currently on Neurontin 400 mg t.i.d. for back pain, which could serve as a very weak mood stabilizer. We will need to get records from [facility] to determine past medication trials. -Would like to start an SSRI, but would like to see the records regarding his history with SSRIs in the past. -Encourage good sleep-wake cycles. -Coordinate with Alondra with whom he supposedly has an appointment this week. 01/09 - Refusing to sign ROIs for [facility] or friends/family. Will file for 303 with hearing tomorrow as is depressed and overdosing on meds, refused to eat and drink with threats of suicide and had kidney dysfunction on admission due to dehydration, refusing to care for multiple medical problems and refused to take medications as prescribed or seek appropriate levels of care, and unable to care for his basic needs independently. 01/10 - 303 granted. - Today says willing to involve Shavon, who will be his primary support at discharge. Will need family meeting with her and possibly Kim, if she is also going to be helping him at home. He is refusing recommendations for inpatient PT or assisted living, and is only willing to return home. PT and OT have recommended 24/ in home care, so will need to explore if that is feasible. 01/12 - Patient describing long-standing affective lability complicating acute treatment for depressive symptoms. Must consider recent dose escalation of trazodone may be either beneficial for his mood with some time or possibly may precipitate more acute cycling. He does not find it helpful for sleep. We'll start Seroquel 25 mg by mouth daily at bedtime at least temporarily for sleep and consider titration for more effective mood stabilization, which may allow for more aggressive use of antidepressant pharmacotherapy down the road. He does have a history of elevated hemoglobin A1c, triglycerides, and cholesterol in December. He does not recall a history of waking associated with Seroquel in the past. We reviewed risks and benefits associated with the medication and he verbalized understanding. 01/13 - Tolerated initiation of Seroquel well with some improvement in sleep. Will increase Seroquel to 50 mg daily at bedtime tonight - We'll reduce trazodone to 150 daily at bedtime to reduce serotonin activity overnight secondary to history of long-standing nightmares - Start Zoloft 25 mg by mouth every morning. Patient believes he has tolerated the procedure well in the past. Will obviously need to watch for excessive activation or increased mood cycling given bipolar history 01/14 - Continue quetiapine and increase to 100mg qhs at patient's request. Continue sertraline and increase to 50mg qam for tomorrow. Monitor for activation. - Continue trazodone, but will taper off if quetiapine effective for sleep, in order to minimize agents and avoid polypharmacy. - Fasting lipids checked 12/06/16 and showed high TG 570 and chol 229. Glucose high on 01/14, 115. (3) Opiate abuse, continuous 01/09 - started taper off oxycodone, due to abuse of this medication 01/10 - continue taper off oxycodone and start taper off Valium. Patient has been abusing these medications, took 20 tabs of oxycodone in less than 24 hours, and does not have an identified outpatient physician willing to prescribe these medications. In addition, opiate and benzos together are contraindicated and increase the risk of lethal overdose. He has demonstrated inability to take these medications appropriately or safely at home, and do not recommend he continue on them outside a controlled and supervised environment. Will need to taper off them here in order to prevent withdrawal at discharge. It appears they were started in the hospital and continued at [facility], but have not been prescribed by an outpatient provider, and he is refusing assisted living or other supervised living where his medications would be dispensed to him. Patient informed of tapers. 01/13 - No signs of withdrawal associated with taper so far (4) Intellectual disability (5) YOLA (acute kidney injury) 01/09 - Creatinine and BUN elevated on admission. Patient eating some here, will recheck labs today. Cr 1.5, BUN 27. Both values have been elevated during most recent medical admission, but were normal at the beginning of Dec. and during Nov. and Oct. admissions. Will consult medicine to determine need for further workup and if any of his medications need to be changed due to persistent kidney dysfunction. Discussed with Dr. Ahuja, who agreed with plan to taper off medications if not indicated, including oxycodone and diazepam. 01/12 - creat downtrending at 1.3 today. medicine following (6) HTN (hypertension) Continue hydrochlorothiazide, metoprolol, and Lasix p.r.n. Monitor BPs. (7) Chronic pain Query PDMP site to confirm dosing of narcotics. His last few Rxs were from inpatient doctors. Unclear if he has an outpatient prescriber for narcotics. Per 302 petition, he was cheeking pain pills in the hospital and brought them home, then was abusing them at home. His UDS was negative for benzos on admission, indicating that he was not taking them as prescribed. He filled a 5 day prescription for oxycodone from Dr. Caro on 01/04/17, so should have bad enough to last him through 01/09, but on admission 01/07 UDS was negative for opiates (but positive for benzos and barbiturates). Nursing to do mouth checks here, and will coordinate with outpatient providers due to concerns for opiate abuse. 01/09 - After review of above information, will taper off of oxycodone, and in the meantime, monitor closely for cheeking/diversion. 01/11 - Confirmed that he had been seen for pain management with [facility], but altered a script in October so no longer getting controlled substances from them, but can return for conservative treatment. 01/12 - discussed consideration for very gentle snri trial, however, he believes he failed to tolerate Cymbalta in the past (8) Obesity Dietary consult to help the patient makes food choices with respect to all of his medical conditions. (9) Asthma (10) Diabetes mellitus type I Diabetic diet. Continue home meds and insulin sliding scale. He is refusing to take insulin at home, although it has been recommended. Consult diabetic pharmacist. Consider need for hospitalist consult. 01/10 - BG remains elevated, and not on insulin at home, but requiring it here. Hgb A1C elevated at 7.5 on 12/27/16. Will consult medicine for recommendations, as patient will likely be going home at discharge. Unclear who is following him as an outpatient. (11) Ischemic stroke - PT/OT consults for treatment here and recommendations for disposition/level of care needed at discharge. Reportedly left [facility] last week. Would like to review their records, but he refused to sign an LIZA. - Assist the patient with ADLs as necessary. - The patient has trouble voiding and self caths at home. We will monitor I\\T\\ O. - Continue home medications including Plavix and aspirin. (12) Nicotine addiction Encourage the patient to reduce or quit. We will offered nicotine patch or Nicorette gum p.r.n. (13) Dyslipidemia Continue Lipitor and Tricor at home dosing. Discharge / Aftercare Planning Primary Care Physician: Name: Jaxson Eldridge PA-C Psychiatrist: Name: Kim Therapist: Name: Kim Date of Appointment: Jan 09, 2017 Visit Code E&M Code: 45904 Risk Factors Assessment Male: Yes : Yes /single/: Yes Higher / Fall in social status: No Health problems: Yes Substance use disorders: Yes Previous psychiatric stay: No Smoker: Yes Protective Factors Assessment Cheondoism beliefs: No : No Responsible for young children: No Employed: No Stable relationships: No Supportive family: No Data Vital Signs Last 24 Hrs: Date Time Temp Pulse Resp B/P Pulse Ox O2 Delivery O2 Flow Rate FiO2 01/14/17 06:54 36.7 71 16 135/77 Meds Administered Last 24 Hrs: Meds Administered (Past 24Hrs) Medications (Trade) Dose Ordered Sig/Ney Route Start Time Stop Time Status Last Admin Dose Admin Quetiapine Fumarate (seroQUEL TAB) 25 mg HS PO 01/12/17 22:00 01/13/17 11:19 DC 01/12/17 22:28 25 MG Quetiapine Fumarate (seroQUEL TAB) 50 mg HS PO 01/13/17 22:00 02/12/17 21:59 01/13/17 22:16 50 MG Trazodone HCl (Desyrel Tab) 150 mg HS PO 01/13/17 22:00 02/12/17 21:59 01/13/17 22:16 150 MG Sertraline HCl (Zoloft Tab) 25 mg QAM PO 01/14/17 09:00 02/13/17 08:59 01/14/17 08:10 25 MG Sertraline HCl (Zoloft Tab) 25 mg 1119 ONCE PO 01/13/17 11:19 01/13/17 11:27 DC 01/13/17 12:07 25 MG Lab Results Last 24 Hrs: Last 24 Hours Test 01/13/17 12:12 01/13/17 17:10 01/13/17 20:34 01/14/17 06:13 Bedside Glucose 117 mg/dl 139 mg/dl 114 mg/dl Sodium Level 144 mmol/L Potassium Level 4.0 mmol/L Chloride Level 106 mmol/L Carbon Dioxide Level 28 mmol/L Anion Gap 10.0 mmol/L Blood Urea Nitrogen 28 mg/dl Creatinine 1.10 mg/dl Est Creatinine Clear Calc Drug Dose 107.0 ml/min Estimated GFR () 95.5 Estimated GFR (Non- 82.4 BUN/Creatinine Ratio 25.5 Random Glucose 110 mg/dl Calcium Level 8.7 mg/dl Test 01/14/17 07:59 Bedside Glucose 115 mg/dl
[2017-01-14] MEDS: TRAZODONE HCL 100 MG TAB PO SCH (22:21)
[2017-01-14] MEDS: QUETIAPINE FUMARATE 100 MG TAB PO SCH (22:24)
[2017-01-15] MEDS: hydrOXYzine HCL 25 MG TAB PO PRN (00:17)
[2017-01-15 06:56] VITALS: BP 112/72; PULSE 70; TEMP 36.4
[2017-01-15] MEDS: BUDESONIDE/FORMOTEROL FUMARATE 160/4.5 60 PUFFS/INHALER INH SCH ×2 (09:12→21:52)
[2017-01-15] MEDS: FLUTICASONE PROPIONATE NA SPR 16 GM BTL NAE SCH (09:12)
[2017-01-15] MEDS: ASPIRIN 81 MG ECTAB PO SCH (09:12)
[2017-01-15] MEDS: CLOPIDOGREL BISULFATE 75 MG TAB PO SCH (09:13)
[2017-01-15] MEDS: METFORMIN HCL 500 MG TAB PO SCH ×2 (09:13→17:52)
[2017-01-15] MEDS: PANTOprazole SOD 40 MG TAB PO SCH (09:13)
[2017-01-15] MEDS: ATORVASTATIN 20 MG TAB PO SCH (09:13)
[2017-01-15] MEDS: TAMSULOSIN HCL 0.4 MG CAP PO SCH (09:13)
[2017-01-15] MEDS: GABAPENTIN 400 MG CAP PO SCH ×3 (09:13→21:53)
[2017-01-15] MEDS: MONTELUKAST SOD 10 MG TAB PO SCH (09:14)
[2017-01-15] MEDS: SERTRALINE HCL 50 MG TAB PO SCH (09:14)
[2017-01-15] MEDS: METOPROLOL SUCC 25MG EXT REL TAB PO SCH (09:14)
[2017-01-15] MEDS: OXYCODONE HCL IR 5 MG TAB (IMMEDIATE RELEASE) PO SCH ×3 (09:14→21:54)
[2017-01-15] MEDS: FENOFIBRATE 48 MG TAB PO SCH (09:14)
[2017-01-15] MEDS: NYSTATIN SUSP 500,000 U/5 ML UDC PO SCH ×4 (09:15→21:53)
[2017-01-15] MEDS: INSULIN ASPART 100 UNITS/ML 3 ML PEN SC SCH ×4 (09:35→21:55)
--- NOTE | 2017-01-15 09:55 | Psychiatric Progress Notes ---
Progress Note Date of Service Jan 15, 2017. Interval History Gerber Ryan is a 41-year-old gentleman from [place], [place], admitted to our unit on a 302 involuntary commitment having made statements of suicide to stop eating and taking his meds to . Chief Complaint "I don't want to take anything that will put weight on me. ". Subjective Patient was seen & assessed interval progress reviewed with Treatment Team. The patient is being more reasonable today about disposition plans and is willing to consider going to [facility] if needed. He would like to be in contact with a different friend to see if he can stay with him until the WAIVER program is in effect and his sister can be his paid caregiver first. He is worried about being on Seroquel, saying that he gets "the muchies" at night and doesn't want to put on weight because of his "sugar diabetes". He continues to report disturbed sleep with some difficulty falling asleep as well as staying asleep, and took one dose of prn vistaril last night. He denies SI/HI and says that his mood is "good". Review of Systems Constitutional: No chills, No fatigue, No fever, No problem reported, No sweats , No weakness, No weight loss ENT: No dental problems, No hearing loss, No nasal symptoms, No problem reported, No sore throat, No tinnitus, No trouble swallowing, No unusual epistaxis Respiratory: No cough, No dyspnea at rest, No dyspnea on exertion, No hemoptysis, No problem reported, No shortness of breath, No sputum, No wheezing Cardiovascular: No PND, No chest pain, No claudication, No edema, No orthopnea , No palpitations, No problem reported Abdomen: + problem reported (increase in appetite) Musculoskeletal: No calf pain, No joint pain, No muscle pain, No problem reported, No swelling Neurologic: + weakness (lt sided s/p CVA) Psychiatric: + problem reported (denies depression, focused on discharge plans) Integumentary: No bleeding, No color change, No itch, No new/changing skin lesions, No problem reported, No rash Sleep Information Total Hours of Sleep: 5.00 Meal Information Percent of Breakfast Consumed: 70 Percent of Lunch Consumed: 100 Percent of Dinner Consumed: 100 Mental Status Exam During interview pt is: alert and oriented, cooperative Appearance: appropriately groomed Eye contact is: fair Motor behavior is: other (walking independently without a cane. Left hemiparesis) Speech: other (dysarthric but able to understand) Affect: blunted Mood is: other ("good") Thought process: goal directed, concrete Thought content: reality based without delusions Suicidal thought are: denied Homicidal thoughts are: denied Hallucinations: denies auditory, denies visual Cognition: language grossly intact, other (memory and attention are impaired) Intelligence estimated to be: below average Insight: limited Judgement: limited Summary of Past History 01/11/17 Spoke with nurse at [facility] in [place], [phone]. She confirmed that Gerber has been a client of their pain management clinic, but in October the patient altered his rx for Roxicodone 15 mg. 5X daily by scratching out the Do Not Fill Until date. He was caught and they will no longer prescribe narcs, but he may continue to receive care in their clinic with injections or other conservative measures. Impression The patient is now here on a 303 commitment. OT and PT are recommending ongoing therapy and if discharged, that he have 24/7 care. His friends who were previously helping, are no longer willing to provide care. Adult protective services has been called. Our first choice would be to establish the OP care he needs to afford him the chance to continuing living independently , but there are limitations to this given that he lives in a second floor walk up and has no family to care for him. Has been referred to the WAIVER program, but may take 3 months or more before approved, but today is willing to consider going to [facility] if he cannot find someone to be with him 24/7 at discharge. Continued Inpatient Care The patient requires inpatient care due to his inability to care for himself outside of a structured environment. Plan (1) Suicidal ideation Suicide checks for safety. Monitor oral intake and kidney function, as patient had not been eating or drinking prior to admission in an attempt to end his life, and showed signs of dehydration on laboratories. Encourage the patient to attend and participate in group and individual counseling. Family meeting with petitioner or other family member/support person - he is refusing. 01/14 - working on disposition. Patient says his sister Tracy will be his multimedia programmer caregiver. Will need to contact her to determine if this is feasible. (2) Bipolar disorder 01/08 -He is currently on Neurontin 400 mg t.i.d. for back pain, which could serve as a very weak mood stabilizer. We will need to get records from [facility] to determine past medication trials. -Would like to start an SSRI, but would like to see the records regarding his history with SSRIs in the past. -Encourage good sleep-wake cycles. -Coordinate with Alondra with whom he supposedly has an appointment this week. 01/09 - Refusing to sign ROIs for [facility] or friends/family. Will file for 303 with hearing tomorrow as is depressed and overdosing on meds, refused to eat and drink with threats of suicide and had kidney dysfunction on admission due to dehydration, refusing to care for multiple medical problems and refused to take medications as prescribed or seek appropriate levels of care, and unable to care for his basic needs independently. 01/10 - 303 granted. - Today says willing to involve Shavon, who will be his primary support at discharge. Will need family meeting with her and possibly Kim, if she is also going to be helping him at home. He is refusing recommendations for inpatient PT or assisted living, and is only willing to return home. PT and OT have recommended / in home care, so will need to explore if that is feasible. 01/12 - Patient describing long-standing affective lability complicating acute treatment for depressive symptoms. Must consider recent dose escalation of trazodone may be either beneficial for his mood with some time or possibly may precipitate more acute cycling. He does not find it helpful for sleep. We'll start Seroquel 25 mg by mouth daily at bedtime at least temporarily for sleep and consider titration for more effective mood stabilization, which may allow for more aggressive use of antidepressant pharmacotherapy down the road. He does have a history of elevated hemoglobin A1c, triglycerides, and cholesterol in December. He does not recall a history of waking associated with Seroquel in the past. We reviewed risks and benefits associated with the medication and he verbalized understanding. 01/13 - Tolerated initiation of Seroquel well with some improvement in sleep. Will increase Seroquel to 50 mg daily at bedtime tonight - We'll reduce trazodone to 150 daily at bedtime to reduce serotonin activity overnight secondary to history of long-standing nightmares - Start Zoloft 25 mg by mouth every morning. Patient believes he has tolerated the procedure well in the past. Will obviously need to watch for excessive activation or increased mood cycling given bipolar history 01/14 - Continue quetiapine and increase to 100mg qhs at patient's request. Continue sertraline and increase to 50mg qam for tomorrow. Monitor for activation. - Continue trazodone, but will taper off if quetiapine effective for sleep, in order to minimize agents and avoid polypharmacy. - Fasting lipids checked 12/06/16 and showed high TG 570 and chol 229. Glucose high on 01/14, 115. (3) Opiate abuse, continuous 01/09 - started taper off oxycodone, due to abuse of this medication 01/10 - continue taper off oxycodone and start taper off Valium. Patient has been abusing these medications, took 20 tabs of oxycodone in less than 24 hours, and does not have an identified outpatient physician willing to prescribe these medications. In addition, opiate and benzos together are contraindicated and increase the risk of lethal overdose. He has demonstrated inability to take these medications appropriately or safely at home, and do not recommend he continue on them outside a controlled and supervised environment. Will need to taper off them here in order to prevent withdrawal at discharge. It appears they were started in the hospital and continued at [facility], but have not been prescribed by an outpatient provider, and he is refusing assisted living or other supervised living where his medications would be dispensed to him. Patient informed of tapers. 01/13 - No signs of withdrawal associated with taper so far (4) Intellectual disability (5) YOLA (acute kidney injury) 01/09 - Creatinine and BUN elevated on admission. Patient eating some here, will recheck labs today. Cr 1.5, BUN 27. Both values have been elevated during most recent medical admission, but were normal at the beginning of Dec. and during Nov. and Oct. admissions. Will consult medicine to determine need for further workup and if any of his medications need to be changed due to persistent kidney dysfunction. Discussed with Dr. Ahuja, who agreed with plan to taper off medications if not indicated, including oxycodone and diazepam. 01/12 - creat downtrending at 1.3 today. medicine following (6) HTN (hypertension) Continue hydrochlorothiazide, metoprolol, and Lasix p.r.n. Monitor BPs. (7) Chronic pain Query PDMP site to confirm dosing of narcotics. His last few Rxs were from inpatient doctors. Unclear if he has an outpatient prescriber for narcotics. Per 302 petition, he was cheeking pain pills in the hospital and brought them home, then was abusing them at home. His UDS was negative for benzos on admission, indicating that he was not taking them as prescribed. He filled a 5 day prescription for oxycodone from Dr. Caro on 01/04/17, so should have bad enough to last him through 01/09, but on admission 01/07 UDS was negative for opiates (but positive for benzos and barbiturates). Nursing to do mouth checks here, and will coordinate with outpatient providers due to concerns for opiate abuse. 01/09 - After review of above information, will taper off of oxycodone, and in the meantime, monitor closely for cheeking/diversion. 01/11 - Confirmed that he had been seen for pain management with [facility], but altered a script in October so no longer getting controlled substances from them, but can return for conservative treatment. 01/12 - discussed consideration for very gentle snri trial, however, he believes he failed to tolerate Cymbalta in the past (8) Obesity Dietary consult to help the patient makes food choices with respect to all of his medical conditions. (9) Asthma (10) Diabetes mellitus type I Diabetic diet. Continue home meds and insulin sliding scale. He is refusing to take insulin at home, although it has been recommended. Consult diabetic pharmacist. Consider need for hospitalist consult. 01/10 - BG remains elevated, and not on insulin at home, but requiring it here. Hgb A1C elevated at 7.5 on 12/27/16. Will consult medicine for recommendations, as patient will likely be going home at discharge. Unclear who is following him as an outpatient. (11) Ischemic stroke - PT/OT consults for treatment here and recommendations for disposition/level of care needed at discharge. Reportedly left [facility] last week. Would like to review their records, but he refused to sign an LIZA. - Assist the patient with ADLs as necessary. - The patient has trouble voiding and self caths at home. We will monitor I\\T\\ O. - Continue home medications including Plavix and aspirin. 01/15 - Referred for the WAIVER program but may take 3 months or more for approval. WIll need 27/05 supervision at discharge and willing to consider Aix[facility] Davidson (12) Nicotine addiction Encourage the patient to reduce or quit. We will offered nicotine patch or Nicorette gum p.r.n. (13) Dyslipidemia Continue Lipitor and Tricor at home dosing. Discharge / Aftercare Planning Primary Care Physician: Name: Jaxson Eldridge PA-C Psychiatrist: Name: Kim Therapist: Name: Kim Date of Appointment: Jan 09, 2017 Visit Code E&M Code: 98130 Risk Factors Assessment Male: Yes : Yes /single/: Yes Higher / Fall in social status: No Health problems: Yes Substance use disorders: Yes Previous psychiatric stay: No Smoker: Yes Protective Factors Assessment Druze beliefs: No : No Responsible for young children: No Employed: No Stable relationships: No Supportive family: No Data Vital Signs Last 24 Hrs: Date Time Temp Pulse Resp B/P Pulse Ox O2 Delivery O2 Flow Rate FiO2 01/15/17 06:56 36.4 70 16 112/72 Meds Administered Last 24 Hrs: Meds Administered (Past 24Hrs) Medications (Trade) Dose Ordered Sig/Ney Route Start Time Stop Time Status Last Admin Dose Admin Quetiapine Fumarate (seroQUEL TAB) 50 mg HS PO 01/13/17 22:00 01/14/17 11:01 DC 01/13/17 22:16 50 MG Trazodone HCl (Desyrel Tab) 150 mg HS PO 01/13/17 22:00 02/12/17 21:59 01/14/17 22:21 150 MG Sertraline HCl (Zoloft Tab) 25 mg QAM PO 01/14/17 09:00 01/14/17 11:01 DC 01/14/17 08:10 25 MG Sertraline HCl (Zoloft Tab) 25 mg 1119 ONCE PO 01/13/17 11:19 01/13/17 11:27 DC 01/13/17 12:07 25 MG Quetiapine Fumarate (seroQUEL TAB) 100 mg HS PO 01/14/17 22:00 02/13/17 21:59 01/14/17 22:24 100 MG Sertraline HCl (Zoloft Tab) 50 mg QAM PO 01/15/17 09:00 02/14/17 08:59 01/15/17 09:14 50 MG Lab Results Last 24 Hrs: Last 24 Hours Test 01/14/17 11:31 01/14/17 16:17 01/14/17 21:27 01/15/17 06:50 Bedside Glucose 128 mg/dl 134 mg/dl 112 mg/dl 134 mg/dl Problem Qualifiers (1) Diabetes mellitus type I: Diabetes mellitus complication status: with unspecified complications Qualified Codes: E10.8 - Type 1 diabetes mellitus with unspecified complications
--- NOTE | 2017-01-15 16:39 | Progress Note ---
Subjective Date of Service: Jan 15, 2017. Subjective Pt evaluation today including: conversation w/ patient, physical exam Saw/examined the patient in room 327 He is doing well, seems a little reserved and down today no problems with urination, improving dexterity and muscle strength bilaterally Problem List Medical Problems: (1) Asthma Status: Chronic (2) Bipolar disorder Status: Chronic (3) Diabetes mellitus type I Status: Chronic (4) Failure to thrive Status: Acute (5) Headache Status: Acute (6) Left sided chest pain Status: Acute (7) Obesity Status: Chronic (8) Self neglect Status: Acute Review of Systems Male : No dysuria, No hematuria, No incontinence, No nocturia more than once/ night, No slowing stream, No urinary frequency Neurologic: + weakness (left arm/hand) Medications Current Inpatient Medications Medications (Trade) Dose Ordered Sig/Ney Route Start Time Stop Time Status Last Admin Dose Admin Acetaminophen (Tylenol Tab) 650 mg Q4H PRN PO 01/07/17 13:45 02/06/17 13:44 01/11/17 15:06 650 MG Bismuth Subsalicylate (Kaopectate Liqd) 15 ml PRN PRN PO 01/07/17 13:45 02/06/17 13:44 Al Hydroxide/Mg Hydroxide (Maalox Susp) 30 ml Q4H PRN PO 01/07/17 13:45 02/06/17 13:44 Magnesium Hydroxide (Milk Of Magnesia Susp) 30 ml DAILY PRN PO 01/07/17 13:45 02/06/17 13:44 Sodium Chloride ([place] Nasal [place]) PRN PRN NA 01/07/17 13:45 02/06/17 13:44 Hydroxyzine HCl (Vistaril Tab) 50 mg HSZ PRN PO 01/07/17 13:45 02/06/17 13:44 01/15/17 00:17 50 MG Hydroxyzine HCl (Vistaril Tab) 25 mg Q4H PRN PO 01/07/17 13:45 02/06/17 13:44 Aspirin (Ecotrin Tab) 81 mg DAILY PO 01/08/17 09:00 02/07/17 08:59 01/15/17 09:12 81 MG Atorvastatin Calcium (Lipitor Tab) 20 mg DAILY PO 01/08/17 09:00 02/07/17 08:59 01/15/17 09:13 20 MG Budesonide/ Formoterol Fumarate (Symbicort 160/ 4.5 Inh) 2 puffs BID INH 01/07/17 21:00 02/06/17 20:59 01/15/17 09:12 2 PUFFS Clopidogrel Bisulfate (plAVix TAB) 75 mg QAM PO 01/08/17 09:00 02/07/17 08:59 01/15/17 09:13 75 MG Dicyclomine HCl (Bentyl Cap) 10 mg QID PO 01/07/17 17:00 02/06/17 16:59 Future Hold 01/10/17 12:51 10 MG Fenofibrate (Tricor Tab) 48 mg DAILY PO 01/08/17 09:00 02/07/17 08:59 01/15/17 09:14 48 MG Fluticasone Propionate (Flonase Nasal [place]) 2 sprays DAILY CAROLEE 01/08/17 09:00 02/07/17 08:59 01/15/17 09:12 2 SPRAYS Furosemide (Lasix Tab) 20 mg BID PRN PO 01/07/17 13:45 02/06/17 13:44 Future Hold Gabapentin (Neurontin Cap) 400 mg TID PO 01/07/17 21:00 02/06/17 20:59 01/15/17 14:21 400 MG Hydrochlorothiazide (Hydrochlorothiazide Tab) 25 mg DAILY PO 01/08/17 09:00 02/07/17 08:59 Future Hold 01/10/17 09:08 25 MG Metoprolol Succinate (Toprol Xl Tab) 25 mg QAM PO 01/08/17 09:00 02/07/17 08:59 01/15/17 09:14 25 MG Montelukast Sodium (Singulair Tab) 10 mg DAILY PO 01/08/17 09:00 02/07/17 08:59 01/15/17 09:14 10 MG Nystatin (Mycostatin Susp) 5 ml QID PO 01/07/17 17:00 01/26/17 16:59 01/15/17 12:10 5 ML Orphenadrine Citrate (Norflex Tab) 100 mg BID PO 01/07/17 21:00 02/06/17 20:59 Future Hold 01/10/17 09:08 100 MG Pantoprazole Sodium (Protonix Tab) 40 mg DAILY PO 01/08/17 09:00 02/07/17 08:59 01/15/17 09:13 40 MG Docusate Sodium (coLACE CAP) 100 mg TID PRN PO 01/07/17 13:45 02/06/17 13:44 Insulin Aspart (novoLOG ASPART) SLIDING SCALE ACHS SC 01/08/17 12:00 02/07/17 11:59 01/15/17 13:04 7 UNITS Glucose (Glucose 40% Gel) 15-30 GRAMS 15 GRAMS... UD PRN PO 01/08/17 10:00 02/07/17 09:59 Glucose (Glucose Chew Tab) 4-8 Tablets 4 Tabl... UD PRN PO 01/08/17 10:00 02/07/17 09:59 Dextrose (Dextrose 50% 50ML Syringe) 25-50ML OF 50% DW IV FOR... UD PRN IV 01/08/17 10:00 02/07/17 09:59 Glucagon (Glucagon Inj) 1 mg UD PRN SQ 01/08/17 10:00 02/07/17 09:59 Metformin HCl (Glucophage Tab) 500 mg BIDM PO 01/08/17 17:45 02/07/17 17:44 01/15/17 09:13 500 MG Diazepam (Valium Tab) 5 mg Taper HS PO 01/10/17 14:00 01/16/17 13:59 01/14/17 22:24 5 MG Oxycodone HCl (Roxicodone Immediate Rel Tab) 5 mg Taper TID PO 01/10/17 12:00 01/18/17 11:59 01/15/17 14:21 5 MG Tamsulosin HCl (Flomax Cap) 0.4 mg QAM PO 01/12/17 09:00 02/11/17 08:59 01/15/17 09:13 0.4 MG Trazodone HCl (Desyrel Tab) 150 mg HS PO 01/13/17 22:00 02/12/17 21:59 01/14/17 22:21 150 MG Quetiapine Fumarate (seroQUEL TAB) 100 mg HS PO 01/14/17 22:00 02/13/17 21:59 01/14/17 22:24 100 MG Sertraline HCl (Zoloft Tab) 50 mg QAM PO 01/15/17 09:00 02/14/17 08:59 01/15/17 09:14 50 MG Objective Vital Signs Date Time Temp Pulse Resp B/P Pulse Ox O2 Delivery O2 Flow Rate FiO2 01/15/17 06:56 36.4 70 16 112/72 Physical Exam General Appearance: no apparent distress Extremities: normal inspection, no pedal edema Neurologic/Psychiatric: alert, normal mood/affect, + motor weakness (left hand) Laboratory Results Last 24 Hours Test 01/14/17 21:27 01/15/17 06:50 01/15/17 11:27 01/15/17 15:49 Bedside Glucose 112 mg/dl 134 mg/dl 116 mg/dl 126 mg/dl Assessment and Plan This is a 41 year old male with a PMH of recent CVA (post-cardiac cath), DM2, HTN, non-obstructive CAD presents to the mental health unit for suicidal ideation and found to have urinary retention with acute kidney injury Acute Kidney Injury secondary to Urinary Retention 01/15 doing well today will continue Flomax check basic metabolic profile in the morning 01/13 check PRP in AM continue Flomax no longer requiring catheter should continue Flomax and see urology as outpatient 01/12 creat down to 1.3 and stable started flomax yesterday improved urination as per patient will continue flomax and see how patient is doing hold off on urology consultation for now 01/11 patient states he was once diagnosed with prostate enlargement was once placed on a medication to help him urinate, does not recall what after his stroke in December 2016, he has been retaining urine and self catheterizing at home states that he could urinate in the mornings, but after that needs to cath Renal U/S = negative will start Flomax, and watch how he does hold diuretics at this time creat down to 1.3 from 1.5 and improving will monitor PRP Recent CVA continue current antiplatelet therapy: aspirin + plavix statin dose should be increased, though will speak to the patient about side effects continue gabapentin for symptoms DM2 continue metformin - monitor kidney function with metformin use continue insulin dose as it is HTN blood pressure is stable, continue current medications DVT ppx ambulation, SCDs FULL CODE
[2017-01-15] MEDS: QUETIAPINE FUMARATE 100 MG TAB PO SCH (21:53)
[2017-01-15] MEDS: TRAZODONE HCL 100 MG TAB PO SCH (21:53)
[2017-01-15] MEDS: DIAZEPAM 5MG TAB PO SCH (21:54)
[2017-01-15] MEDS: ACETAMINOPHEN 325 MG TAB PO PRN (23:00)
[2017-01-16] MEDS: hydrOXYzine HCL 25 MG TAB PO PRN ×3 (00:42→23:53)
[2017-01-16 06:47] VITALS: BP 119/73; PULSE 81; TEMP 36.6
[2017-01-16] MEDS: TAMSULOSIN HCL 0.4 MG CAP PO SCH (08:48)
[2017-01-16] MEDS: FLUTICASONE PROPIONATE NA SPR 16 GM BTL NAE SCH (08:48)
[2017-01-16] MEDS: BUDESONIDE/FORMOTEROL FUMARATE 160/4.5 60 PUFFS/INHALER INH SCH ×2 (08:48→21:18)
[2017-01-16] MEDS: METFORMIN HCL 500 MG TAB PO SCH ×2 (08:48→18:39)
[2017-01-16] MEDS: ASPIRIN 81 MG ECTAB PO SCH (08:48)
[2017-01-16] MEDS: PANTOprazole SOD 40 MG TAB PO SCH (08:49)
[2017-01-16] MEDS: MONTELUKAST SOD 10 MG TAB PO SCH (08:49)
[2017-01-16] MEDS: GABAPENTIN 400 MG CAP PO SCH ×3 (08:49→21:28)
[2017-01-16] MEDS: FENOFIBRATE 48 MG TAB PO SCH (08:49)
[2017-01-16] MEDS: METOPROLOL SUCC 25MG EXT REL TAB PO SCH (08:49)
[2017-01-16] MEDS: NYSTATIN SUSP 500,000 U/5 ML UDC PO SCH ×4 (08:49→21:28)
[2017-01-16] MEDS: SERTRALINE HCL 50 MG TAB PO SCH (08:49)
[2017-01-16] MEDS: CLOPIDOGREL BISULFATE 75 MG TAB PO SCH (08:49)
[2017-01-16] MEDS: OXYCODONE HCL IR 5 MG TAB (IMMEDIATE RELEASE) PO SCH ×2 (08:49→21:28)
[2017-01-16] MEDS: ATORVASTATIN 20 MG TAB PO SCH (08:50)
[2017-01-16] MEDS: INSULIN ASPART 100 UNITS/ML 3 ML PEN SC SCH ×4 (09:07→21:29)
[2017-01-16 09:13] LABS: BUN/CREATININE RATIO 27.5 (10-20); CALCIUM 8.7 mg/dl (8.5-10.1); POTASSIUM 3.9 mmol/L (3.5-5.1)
--- NOTE | 2017-01-16 10:11 | Psychiatric Progress Notes ---
Progress Note Date of Service Jan 16, 2017. Interval History Gerber Ryan is a 41-year-old gentleman from [place], [place], admitted to our unit on a 302 involuntary commitment having made statements of suicide to stop eating and taking his meds to . Chief Complaint "Great.". Subjective Patient was seen & assessed interval progress reviewed with Treatment Team. The patient says that his mood is good and he is working hard on finding people to help him so he can stay in his apartment. He says that he has talked with his uncle who says that he can help him, and his sister has also said that he can come to stay with her instead of going to a [facility]. He has talked with his uncle but not with his sister. He says that his mood is good, is not suicidal. He is working hard with PT/OT trying to regain his strength on the affected side and even working on the exercises between visits. He denies aud/vis hallucinations. He says that he had a SMALL yesterday that was not helped by tylenol, and repeats that he had a script for fioricet before. We review the information from pain management that he altered a script which he contends he did not, saying that it fell in the snow and the ink ran. He is complaining of excessive gas. Sleep remains difficult with initial insomnia Review of Systems Constitutional: No chills, No fatigue, No fever, No problem reported, No sweats , No weakness, No weight loss ENT: No dental problems, No hearing loss, No nasal symptoms, No problem reported, No sore throat, No tinnitus, No trouble swallowing, No unusual epistaxis Respiratory: No cough, No dyspnea at rest, No dyspnea on exertion, No hemoptysis, No problem reported, No shortness of breath, No sputum, No wheezing Cardiovascular: No PND, No chest pain, No claudication, No edema, No orthopnea , No palpitations, No problem reported Abdomen: No GI bleeding, No constipation, No diarrhea, No nausea, No pain, No problem reported, No vomiting Musculoskeletal: No calf pain, No joint pain, No muscle pain, No problem reported, No swelling Neurologic: + paralysis (lt side) Psychiatric: + problem reported ("great") Integumentary: No bleeding, No color change, No itch, No new/changing skin lesions, No problem reported, No rash Sleep Information Total Hours of Sleep: 3.50 Meal Information Percent of Breakfast Consumed: 85 Percent of Lunch Consumed: 100 Percent of Dinner Consumed: 75 Mental Status Exam During interview pt is: alert and oriented, cooperative Appearance: appropriately groomed Eye contact is: fair Motor behavior is: other (walking independently without a cane. Left hemiparesis) Speech: other (dysarthric but able to understand) Affect: blunted Mood is: other ("great") Thought process: goal directed, concrete Thought content: reality based without delusions Suicidal thought are: denied Homicidal thoughts are: denied Hallucinations: denies auditory, denies visual Cognition: language grossly intact, other (memory and attention are impaired) Intelligence estimated to be: below average Insight: limited Judgement: limited Summary of Past History 01/11/17 Spoke with nurse at [facility] in [place], [phone]. She confirmed that Gerber has been a client of their pain management clinic, but in October the patient altered his rx for Roxicodone 15 mg. 5X daily by scratching out the Do Not Fill Until date. He was caught and they will no longer prescribe narcs, but he may continue to receive care in their clinic with injections or other conservative measures. Impression The patient is now here on a 303 commitment. OT and PT are recommending ongoing therapy and if discharged, that he have 24/7 care. His friends who were previously helping, are no longer willing to provide care. Adult protective services has been called. Our first choice would be to establish the OP care he needs to afford him the chance to continuing living independently , but there are limitations to this given that he lives in a second floor walk up and has no family to care for him. Has been referred to the WAIVER program, but may take 3 months or more before approved, but today is willing to consider going to [facility] if he cannot find someone to be with him 24/7 at discharge. Today he says that uncle and sister in [place] are options and so we will pusue. Will order simethicone for gas. Will also increase seroquel for ongoing complaints of insomnia. Continued Inpatient Care The patient requires inpatient care due to his inability to care for himself outside of a structured environment. Plan (1) Suicidal ideation Suicide checks for safety. Monitor oral intake and kidney function, as patient had not been eating or drinking prior to admission in an attempt to end his life, and showed signs of dehydration on laboratories. Encourage the patient to attend and participate in group and individual counseling. Family meeting with petitioner or other family member/support person - he is refusing. 01/14 - working on disposition. Patient says his sister Tracy will be his chief of internal medicine caregiver. Will need to contact her to determine if this is feasible. (2) Bipolar disorder 01/08 -He is currently on Neurontin 400 mg t.i.d. for back pain, which could serve as a very weak mood stabilizer. We will need to get records from [facility] to determine past medication trials. -Would like to start an SSRI, but would like to see the records regarding his history with SSRIs in the past. -Encourage good sleep-wake cycles. -Coordinate with Alondra with whom he supposedly has an appointment this week. 01/09 - Refusing to sign ROIs for [facility] or friends/family. Will file for 303 with hearing tomorrow as is depressed and overdosing on meds, refused to eat and drink with threats of suicide and had kidney dysfunction on admission due to dehydration, refusing to care for multiple medical problems and refused to take medications as prescribed or seek appropriate levels of care, and unable to care for his basic needs independently. 01/10 - 303 granted. - Today says willing to involve Shavon, who will be his primary support at discharge. Will need family meeting with her and possibly Kim, if she is also going to be helping him at home. He is refusing recommendations for inpatient PT or assisted living, and is only willing to return home. PT and OT have recommended 24/7 in home care, so will need to explore if that is feasible. 01/12 - Patient describing long-standing affective lability complicating acute treatment for depressive symptoms. Must consider recent dose escalation of trazodone may be either beneficial for his mood with some time or possibly may precipitate more acute cycling. He does not find it helpful for sleep. We'll start Seroquel 25 mg by mouth daily at bedtime at least temporarily for sleep and consider titration for more effective mood stabilization, which may allow for more aggressive use of antidepressant pharmacotherapy down the road. He does have a history of elevated hemoglobin A1c, triglycerides, and cholesterol in December. He does not recall a history of waking associated with Seroquel in the past. We reviewed risks and benefits associated with the medication and he verbalized understanding. 01/13 - Tolerated initiation of Seroquel well with some improvement in sleep. Will increase Seroquel to 50 mg daily at bedtime tonight - We'll reduce trazodone to 150 daily at bedtime to reduce serotonin activity overnight secondary to history of long-standing nightmares - Start Zoloft 25 mg by mouth every morning. Patient believes he has tolerated the procedure well in the past. Will obviously need to watch for excessive activation or increased mood cycling given bipolar history 01/14 - Continue quetiapine and increase to 100mg qhs at patient's request. Continue sertraline and increase to 50mg qam for tomorrow. Monitor for activation. - Continue trazodone, but will taper off if quetiapine effective for sleep, in order to minimize agents and avoid polypharmacy. - Fasting lipids checked 12/06/16 and showed high TG 570 and chol 229. Glucose high on 01/14, 115. 01/15 - Increase Seroquel to 150 mg. HS to target sleep - Explore options with uncle and sister in [place] (3) Opiate abuse, continuous 01/09 - started taper off oxycodone, due to abuse of this medication 01/10 - continue taper off oxycodone and start taper off Valium. Patient has been abusing these medications, took 20 tabs of oxycodone in less than 24 hours, and does not have an identified outpatient physician willing to prescribe these medications. In addition, opiate and benzos together are contraindicated and increase the risk of lethal overdose. He has demonstrated inability to take these medications appropriately or safely at home, and do not recommend he continue on them outside a controlled and supervised environment. Will need to taper off them here in order to prevent withdrawal at discharge. It appears they were started in the hospital and continued at [facility], but have not been prescribed by an outpatient provider, and he is refusing assisted living or other supervised living where his medications would be dispensed to him. Patient informed of tapers. 01/13 - No signs of withdrawal associated with taper so far (4) Intellectual disability (5) YOLA (acute kidney injury) 01/09 - Creatinine and BUN elevated on admission. Patient eating some here, will recheck labs today. Cr 1.5, BUN 27. Both values have been elevated during most recent medical admission, but were normal at the beginning of Dec. and during Nov. and Oct. admissions. Will consult medicine to determine need for further workup and if any of his medications need to be changed due to persistent kidney dysfunction. Discussed with Dr. Ahuja, who agreed with plan to taper off medications if not indicated, including oxycodone and diazepam. 01/12 - creat downtrending at 1.3 today. medicine following (6) HTN (hypertension) Continue hydrochlorothiazide, metoprolol, and Lasix p.r.n. Monitor BPs. (7) Chronic pain Query PDMP site to confirm dosing of narcotics. His last few Rxs were from inpatient doctors. Unclear if he has an outpatient prescriber for narcotics. Per 302 petition, he was cheeking pain pills in the hospital and brought them home, then was abusing them at home. His UDS was negative for benzos on admission, indicating that he was not taking them as prescribed. He filled a 5 day prescription for oxycodone from Dr. Caro on 01/04/17, so should have bad enough to last him through 01/09, but on admission 01/07 UDS was negative for opiates (but positive for benzos and barbiturates). Nursing to do mouth checks here, and will coordinate with outpatient providers due to concerns for opiate abuse. 01/09 - After review of above information, will taper off of oxycodone, and in the meantime, monitor closely for cheeking/diversion. 01/11 - Confirmed that he had been seen for pain management with [facility], but altered a script in October so no longer getting controlled substances from them, but can return for conservative treatment. 01/12 - discussed consideration for very gentle snri trial, however, he believes he failed to tolerate Cymbalta in the past (8) Obesity Dietary consult to help the patient makes food choices with respect to all of his medical conditions. (9) Asthma (10) Diabetes mellitus type I Diabetic diet. Continue home meds and insulin sliding scale. He is refusing to take insulin at home, although it has been recommended. Consult diabetic pharmacist. Consider need for hospitalist consult. 01/10 - BG remains elevated, and not on insulin at home, but requiring it here. Hgb A1C elevated at 7.5 on 12/27/16. Will consult medicine for recommendations, as patient will likely be going home at discharge. Unclear who is following him as an outpatient. (11) Ischemic stroke - PT/OT consults for treatment here and recommendations for disposition/level of care needed at discharge. Reportedly left [facility] last week. Would like to review their records, but he refused to sign an LIZA. - Assist the patient with ADLs as necessary. - The patient has trouble voiding and self caths at home. We will monitor I\\T\\ O. - Continue home medications including Plavix and aspirin. 01/15 - Referred for the [facility] program but may take 3 months or more for approval. WIll need 27/05 supervision at discharge and willing to consider [facility] (12) Nicotine addiction Encourage the patient to reduce or quit. We will offered nicotine patch or Nicorette gum p.r.n. (13) Dyslipidemia Continue Lipitor and Tricor at home dosing. Discharge / Aftercare Planning Primary Care Physician: Name: Jaxson Eldridge PA-C Psychiatrist: Name: Kim Therapist: Name: Kim Date of Appointment: Jan 09, 2017 Visit Code E&M Code: 68790 Risk Factors Assessment Male: Yes : Yes /single/: Yes Higher / Fall in social status: No Health problems: Yes Substance use disorders: Yes Previous psychiatric stay: No Smoker: Yes Protective Factors Assessment [employer] beliefs: No : No Responsible for young children: No Employed: No Stable relationships: No Supportive family: No Data Vital Signs Last 24 Hrs: Date Time Temp Pulse Resp B/P Pulse Ox O2 Delivery O2 Flow Rate FiO2 01/16/17 06:47 36.6 81 16 119/73 Meds Administered Last 24 Hrs: Meds Administered (Past 24Hrs) Medications (Trade) Dose Ordered Sig/Ney Route Start Time Stop Time Status Last Admin Dose Admin Quetiapine Fumarate (seroQUEL TAB) 100 mg HS PO 01/14/17 22:00 02/13/17 21:59 01/15/17 21:53 100 MG Sertraline HCl (Zoloft Tab) 50 mg QAM PO 01/15/17 09:00 02/14/17 08:59 01/16/17 08:49 50 MG Lab Results Last 24 Hrs: Last 24 Hours Test 01/15/17 11:27 01/15/17 15:49 01/15/17 21:31 01/16/17 07:51 Bedside Glucose 116 mg/dl 126 mg/dl 114 mg/dl 96 mg/dl Test 01/16/17 08:18 Sodium Level 142 mmol/L Potassium Level 3.9 mmol/L Chloride Level 107 mmol/L Carbon Dioxide Level 28 mmol/L Anion Gap 7.0 mmol/L Blood Urea Nitrogen 28 mg/dl Creatinine 1.00 mg/dl Est Creatinine Clear Calc Drug Dose 117.7 ml/min Estimated GFR () 107.1 Estimated GFR (Non- 92.4 BUN/Creatinine Ratio 27.5 Random Glucose 94 mg/dl Calcium Level 8.7 mg/dl Problem Qualifiers (1) Diabetes mellitus type I: Diabetes mellitus complication status: with unspecified complications Qualified Codes: E10.8 - Type 1 diabetes mellitus with unspecified complications
[2017-01-16] MEDS: ACETAMINOPHEN 325 MG TAB PO PRN (12:16)
[2017-01-16] MEDS: SIMETHICONE 80 MG CHEW PO PRN ×2 (12:16→20:06)
[2017-01-16] MEDS: QUETIAPINE FUMARATE 100 MG TAB PO SCH (21:28)
[2017-01-16] MEDS: TRAZODONE HCL 100 MG TAB PO SCH (21:28)
[2017-01-17] MEDS: hydrOXYzine HCL 25 MG TAB PO PRN ×2 (01:30→23:31)
[2017-01-17 06:43] VITALS: BP_SYST 132; BP_SYST 137; BP_DIAS 86; BP_DIAS 87; PULSE 75; TEMP 36.5
[2017-01-17] MEDS: FLUTICASONE PROPIONATE NA SPR 16 GM BTL NAE SCH (09:11)
[2017-01-17] MEDS: BUDESONIDE/FORMOTEROL FUMARATE 160/4.5 60 PUFFS/INHALER INH SCH ×2 (09:11→22:04)
[2017-01-17] MEDS: ASPIRIN 81 MG ECTAB PO SCH (09:12)
[2017-01-17] MEDS: TAMSULOSIN HCL 0.4 MG CAP PO SCH (09:12)
[2017-01-17] MEDS: ATORVASTATIN 20 MG TAB PO SCH (09:13)
[2017-01-17] MEDS: METFORMIN HCL 500 MG TAB PO SCH ×2 (09:13→17:52)
[2017-01-17] MEDS: NYSTATIN SUSP 500,000 U/5 ML UDC PO SCH ×4 (09:13→22:04)
[2017-01-17] MEDS: PANTOprazole SOD 40 MG TAB PO SCH (09:14)
[2017-01-17] MEDS: CLOPIDOGREL BISULFATE 75 MG TAB PO SCH (09:14)
[2017-01-17] MEDS: GABAPENTIN 400 MG CAP PO SCH ×3 (09:14→22:57)
[2017-01-17] MEDS: SERTRALINE HCL 50 MG TAB PO SCH (09:15)
[2017-01-17] MEDS: FENOFIBRATE 48 MG TAB PO SCH (09:15)
[2017-01-17] MEDS: MONTELUKAST SOD 10 MG TAB PO SCH (09:15)
[2017-01-17] MEDS: OXYCODONE HCL IR 5 MG TAB (IMMEDIATE RELEASE) PO SCH ×2 (09:15→22:04)
[2017-01-17] MEDS: METOPROLOL SUCC 25MG EXT REL TAB PO SCH (09:17)
[2017-01-17] MEDS: INSULIN ASPART 100 UNITS/ML 3 ML PEN SC SCH ×4 (09:31→22:00)
--- NOTE | 2017-01-17 13:18 | Psychiatric Progress Notes ---
Progress Note Date of Service Jan 17, 2017. Interval History Gerber Ryan is a 41-year-old gentleman from [place], [place], admitted to our unit on a 302 involuntary commitment having made statements of suicide to stop eating and taking his meds to . Chief Complaint "Great". Subjective Patient was seen & assessed interval progress reviewed. His mood is "great," and he is excited that his physical strength is improving. He just finished working with PT and OT and says he can use all his fingers now, and made his own bed this morning. He is hoping that he can return home, as he now feels he doesn't need so much help around the house. He denies SI, and is hopeful about the future. He is aware that his uncle was contacted and can't provide much care , due to his own work schedule, and is now hoping that his godmother could help him out. He admits that she is elderly, but says she used to be a nurse. He denies any withdrawal symptoms in tapering off Valium and opiates. Sleep Information Total Hours of Sleep: 4.50 Meal Information Percent of Breakfast Consumed: 50 Percent of Lunch Consumed: 100 Percent of Dinner Consumed: 75 Mental Status Exam During interview pt is: alert and oriented, cooperative Appearance: appropriately dressed, appropriately groomed Eye contact is: good Motor behavior is: other (walking independently without a cane. Left hemiparesis) Speech: other (dysarthric but able to understand) Affect: other (brighter today) Mood is: other ("great") Thought process: goal directed, concrete Thought content: reality based without delusions Suicidal thought are: denied Homicidal thoughts are: denied Hallucinations: denies auditory, denies visual Cognition: attention grossly intact, language grossly intact Intelligence estimated to be: below average Insight: limited Judgement: limited Summary of Past History 01/11/17 Spoke with nurse at [facility] in [place], [phone]. She confirmed that Gerber has been a client of their pain management clinic, but in October the patient altered his rx for Roxicodone 15 mg. 5X daily by scratching out the Do Not Fill Until date. He was caught and they will no longer prescribe narcs, but he may continue to receive care in their clinic with injections or other conservative measures. Impression The patient is now here on a 303 commitment. OT and PT are recommending ongoing therapy and if discharged, that he have 24/7 care. His friends who were previously helping, are no longer willing to provide care. Adult protective services has been called. Our first choice would be to establish the OP care he needs to afford him the chance to continuing living independently , but there are limitations to this given that he lives in a second floor walk up and has no family to care for him. Has been referred to the WAIVER program, but may take 3 months or more before approved, but today is willing to consider going to [facility] if he cannot find someone to be with him 24/7 at discharge. He continues to try to find family willing to help him at home, but this has been a challenge. Continued Inpatient Care The patient requires inpatient care due to his inability to care for himself outside of a structured environment. Plan (1) Suicidal ideation Suicide checks for safety. Monitor oral intake and kidney function, as patient had not been eating or drinking prior to admission in an attempt to end his life, and showed signs of dehydration on laboratories. Encourage the patient to attend and participate in group and individual counseling. Family meeting with petitioner or other family member/support person - he is refusing. 01/14 - working on disposition. Patient says his sister Tracy will be his time piece repairer caregiver. Will need to contact her to determine if this is feasible. 01/16 - patient said uncle could be his caregiver, but uncle contacted and unable to stay with his due to working. 01/17 - today patient says his godmother can help care for him at home. Consider having PT/OT re-asses for level of care on discharge recommendations, as his strength is improving. Staff to contact home nursing services to determine how much care they can provide at home. (2) Bipolar disorder 01/08 -He is currently on Neurontin 400 mg t.i.d. for back pain, which could serve as a very weak mood stabilizer. We will need to get records from [facility] to determine past medication trials. -Would like to start an SSRI, but would like to see the records regarding his history with SSRIs in the past. -Encourage good sleep-wake cycles. -Coordinate with Alondra with whom he supposedly has an appointment this week. 01/09 - Refusing to sign ROIs for [facility] or friends/family. Will file for 303 with hearing tomorrow as is depressed and overdosing on meds, refused to eat and drink with threats of suicide and had kidney dysfunction on admission due to dehydration, refusing to care for multiple medical problems and refused to take medications as prescribed or seek appropriate levels of care, and unable to care for his basic needs independently. 01/10 - 303 granted. - Today says willing to involve Shavon, who will be his primary support at discharge. Will need family meeting with her and possibly Kim, if she is also going to be helping him at home. He is refusing recommendations for inpatient PT or assisted living, and is only willing to return home. PT and OT have recommended / in home care, so will need to explore if that is feasible. 01/12 - Patient describing long-standing affective lability complicating acute treatment for depressive symptoms. Must consider recent dose escalation of trazodone may be either beneficial for his mood with some time or possibly may precipitate more acute cycling. He does not find it helpful for sleep. We'll start Seroquel 25 mg by mouth daily at bedtime at least temporarily for sleep and consider titration for more effective mood stabilization, which may allow for more aggressive use of antidepressant pharmacotherapy down the road. He does have a history of elevated hemoglobin A1c, triglycerides, and cholesterol in December. He does not recall a history of waking associated with Seroquel in the past. We reviewed risks and benefits associated with the medication and he verbalized understanding. 01/13 - Tolerated initiation of Seroquel well with some improvement in sleep. Will increase Seroquel to 50 mg daily at bedtime tonight - We'll reduce trazodone to 150 daily at bedtime to reduce serotonin activity overnight secondary to history of long-standing nightmares - Start Zoloft 25 mg by mouth every morning. Patient believes he has tolerated the procedure well in the past. Will obviously need to watch for excessive activation or increased mood cycling given bipolar history 01/14 - Continue quetiapine and increase to 100mg qhs at patient's request. Continue sertraline and increase to 50mg qam for tomorrow. Monitor for activation. - Continue trazodone, but will taper off if quetiapine effective for sleep, in order to minimize agents and avoid polypharmacy. - Fasting lipids checked 12/06/16 and showed high TG 570 and chol 229. Glucose high on 01/14, 115. 01/15 - Increase Seroquel to 150 mg. HS to target sleep (3) Opiate abuse, continuous 01/09 - started taper off oxycodone, due to abuse of this medication 01/10 - continue taper off oxycodone and start taper off Valium. Patient has been abusing these medications, took 20 tabs of oxycodone in less than 24 hours, and does not have an identified outpatient physician willing to prescribe these medications. In addition, opiate and benzos together are contraindicated and increase the risk of lethal overdose. He has demonstrated inability to take these medications appropriately or safely at home, and do not recommend he continue on them outside a controlled and supervised environment. Will need to taper off them here in order to prevent withdrawal at discharge. It appears they were started in the hospital and continued at [facility], but have not been prescribed by an outpatient provider, and he is refusing assisted living or other supervised living where his medications would be dispensed to him. Patient informed of tapers. 01/13 - No signs of withdrawal associated with taper so far (4) Intellectual disability (5) Ischemic stroke - PT/OT consults for treatment here and recommendations for disposition/level of care needed at discharge. Reportedly left [facility] last week. Would like to review their records, but he refused to sign an LIZA. - Assist the patient with ADLs as necessary. - The patient has trouble voiding and self caths at home. We will monitor I\\T\\ O. - Continue home medications including Plavix and aspirin. 01/15 - Referred for the WAIVER program but may take 3 months or more for approval. Will need 24/ supervision at discharge [facility]17 - Adult protective services staff to meet with him today. - Exploring options for family to help care for him at home. - Contact home health nursing that was started on discharge form [facility] to determine what services they can provide. - Consider PT/OT reassessment for level of care needed at discharge, as he feels he has improved physically here. (6) [facility]. His last few Rxs were from inpatient doctors. Unclear if he has an outpatient prescriber for narcotics. Per 302 petition, he was cheeking pain pills in the hospital and brought them home, then was abusing them at home. His UDS was negative for benzos on admission, indicating that he was not taking them as prescribed. He filled a 5 day prescription for oxycodone from Dr. Caro on 01/04/17, so should have bad enough to last him through 01/09, but on admission 01/07 UDS was negative for opiates (but positive for benzos and barbiturates). Nursing to do mouth checks here, and will coordinate with outpatient providers due to concerns for opiate abuse. 01/09 - After review of above information, will taper off of oxycodone, and in the meantime, monitor closely for cheeking/diversion. 01/11 - Confirmed that he had been seen for pain management with [facility], but altered a script in October so no longer getting controlled substances from them, but can return for conservative treatment. 01/12 - discussed consideration for very gentle snri trial, however, he believes he failed to tolerate Cymbalta in the past (7) YOLA (acute kidney injury) 01/09 - Creatinine and BUN elevated on admission. Patient eating some here, will recheck labs today. Cr 1.5, BUN 27. Both values have been elevated during most recent medical admission, but were normal at the beginning of Dec. and during Nov. and Oct. admissions. Will consult medicine to determine need for further workup and if any of his medications need to be changed due to persistent kidney dysfunction. Discussed with Dr. Ahuja, who agreed with plan to taper off medications if not indicated, including oxycodone and diazepam. 01/12 - creat downtrending at 1.3 today. medicine following (8) HTN (hypertension) Continue hydrochlorothiazide, metoprolol, and Lasix p.r.n. Monitor BPs. (9) Obesity Dietary consult to help the patient makes food choices with respect to all of his medical conditions. (10) Asthma (11) Diabetes mellitus type I Diabetic diet. Continue home meds and insulin sliding scale. He is refusing to take insulin at home, although it has been recommended. Consult diabetic pharmacist. Consider need for hospitalist consult. 01/10 - BG remains elevated, and not on insulin at home, but requiring it here. Hgb A1C elevated at 7.5 on 12/27/16. Will consult medicine for recommendations, as patient will likely be going home at discharge. Unclear who is following him as an outpatient. (12) Nicotine addiction Encourage the patient to reduce or quit. We will offered nicotine patch or Nicorette gum p.r.n. (13) Dyslipidemia Continue Lipitor and Tricor at home dosing. Discharge / Aftercare Planning Primary Care Physician: Name: Jaxson Eldridge PA-C Psychiatrist: Name: Kim Therapist: Name: Kim Date of Appointment: Jan 09, 2017 Visit Code E&M Code: 46563 Risk Factors Assessment Male: Yes : Yes /single/: Yes Higher / Fall in social status: No Health problems: Yes Substance use disorders: Yes Previous psychiatric stay: No Smoker: Yes Protective Factors Assessment Buddhism beliefs: No : No Responsible for young children: No Employed: No Stable relationships: No Supportive family: No Data Vital Signs Last 24 Hrs: Date Time Temp Pulse Resp B/P Pulse Ox O2 Delivery O2 Flow Rate FiO2 01/17/17 06:43 36.5 75 16 137/87 75 132/86 Meds Administered Last 24 Hrs: Meds Administered (Past 24Hrs) Medications (Trade) Dose Ordered Sig/Ney Route Start Time Stop Time Status Last Admin Dose Admin Quetiapine Fumarate (seroQUEL TAB) 150 mg HS PO 01/16/17 22:00 02/15/17 21:59 01/16/17 21:28 150 MG Simethicone (Mylicon Chew Tab) 80 mg Q6H PRN PO 01/16/17 11:30 02/15/17 11:29 01/16/17 20:06 80 MG Lab Results Last 24 Hrs: Last 24 Hours Test 01/16/17 17:13 01/16/17 20:32 01/17/17 08:50 01/17/17 12:20 Bedside Glucose 116 mg/dl 110 mg/dl 102 mg/dl 105 mg/dl Problem Qualifiers (1) Diabetes mellitus type I: Diabetes mellitus complication status: with unspecified complications Qualified Codes: E10.8 - Type 1 diabetes mellitus with unspecified complications
[2017-01-17] MEDS: ACETAMINOPHEN 325 MG TAB PO PRN ×2 (15:56→22:59)
--- NOTE | 2017-01-17 16:32 | Progress Note ---
Subjective Date of Service: Jan 17, 2017. Subjective Pt evaluation today including: conversation w/ patient, physical exam, lab review, review of studies, review of inpatient medication list Saw/examined the patient in the MHU He is doing well, able to move fingers of his left hand a lot more today. Urinating fine with no catheter Problem List Medical Problems: (1) Asthma Status: Chronic (2) Bipolar disorder Status: Chronic (3) Diabetes mellitus type I Status: Chronic (4) Failure to thrive Status: Acute (5) Headache Status: Acute (6) Left sided chest pain Status: Acute (7) Obesity Status: Chronic (8) Self neglect Status: Acute Review of Systems Abdomen: No diarrhea, No nausea, No pain, No vomiting Male : No dysuria, No incontinence, No nocturia more than once/night, No slowing stream, No urinary frequency Medications Current Inpatient Medications Medications (Trade) Dose Ordered Sig/Ney Route Start Time Stop Time Status Last Admin Dose Admin Acetaminophen (Tylenol Tab) 650 mg Q4H PRN PO 01/07/17 13:45 02/06/17 13:44 01/17/17 15:56 650 MG Bismuth Subsalicylate (Kaopectate Liqd) 15 ml PRN PRN PO 01/07/17 13:45 02/06/17 13:44 Al Hydroxide/Mg Hydroxide (Maalox Susp) 30 ml Q4H PRN PO 01/07/17 13:45 02/06/17 13:44 Magnesium Hydroxide (Milk Of Magnesia Susp) 30 ml DAILY PRN PO 01/07/17 13:45 02/06/17 13:44 Sodium Chloride ([place] Nasal [place]) PRN PRN NA 01/07/17 13:45 02/06/17 13:44 Hydroxyzine HCl (Vistaril Tab) 50 mg HSZ PRN PO 01/07/17 13:45 02/06/17 13:44 01/17/17 01:30 50 MG Hydroxyzine HCl (Vistaril Tab) 25 mg Q4H PRN PO 01/07/17 13:45 02/06/17 13:44 Aspirin (Ecotrin Tab) 81 mg DAILY PO 01/08/17 09:00 02/07/17 08:59 01/17/17 09:12 81 MG Atorvastatin Calcium (Lipitor Tab) 20 mg DAILY PO 01/08/17 09:00 02/07/17 08:59 01/17/17 09:13 20 MG Budesonide/ Formoterol Fumarate (Symbicort 160/ 4.5 Inh) 2 puffs BID INH 01/07/17 21:00 02/06/17 20:59 01/17/17 09:11 2 PUFFS Clopidogrel Bisulfate (plAVix TAB) 75 mg QAM PO 01/08/17 09:00 02/07/17 08:59 01/17/17 09:14 75 MG Dicyclomine HCl (Bentyl Cap) 10 mg QID PO 01/07/17 17:00 02/06/17 16:59 Future Hold 01/10/17 12:51 10 MG Fenofibrate (Tricor Tab) 48 mg DAILY PO 01/08/17 09:00 02/07/17 08:59 01/17/17 09:15 48 MG Fluticasone Propionate (Flonase Nasal [place]) 2 sprays DAILY CAROLEE 01/08/17 09:00 02/07/17 08:59 01/17/17 09:11 2 SPRAYS Furosemide (Lasix Tab) 20 mg BID PRN PO 01/07/17 13:45 02/06/17 13:44 Future Hold Gabapentin (Neurontin Cap) 400 mg TID PO 01/07/17 21:00 02/06/17 20:59 01/17/17 14:07 400 MG Hydrochlorothiazide (Hydrochlorothiazide Tab) 25 mg DAILY PO 01/08/17 09:00 02/07/17 08:59 Future Hold 01/10/17 09:08 25 MG Metoprolol Succinate (Toprol Xl Tab) 25 mg QAM PO 01/08/17 09:00 02/07/17 08:59 01/17/17 09:17 25 MG Montelukast Sodium (Singulair Tab) 10 mg DAILY PO 01/08/17 09:00 02/07/17 08:59 01/17/17 09:15 10 MG Nystatin (Mycostatin Susp) 5 ml QID PO 01/07/17 17:00 01/26/17 16:59 01/17/17 13:03 5 ML Orphenadrine Citrate (Norflex Tab) 100 mg BID PO 01/07/17 21:00 02/06/17 20:59 Future Hold 01/10/17 09:08 100 MG Pantoprazole Sodium (Protonix Tab) 40 mg DAILY PO 01/08/17 09:00 02/07/17 08:59 01/17/17 09:14 40 MG Docusate Sodium (coLACE CAP) 100 mg TID PRN PO 01/07/17 13:45 02/06/17 13:44 Insulin Aspart (novoLOG ASPART) SLIDING SCALE ACHS SC 01/08/17 12:00 02/07/17 11:59 01/17/17 13:07 10 UNITS Glucose (Glucose 40% Gel) 15-30 GRAMS 15 GRAMS... UD PRN PO 01/08/17 10:00 02/07/17 09:59 Glucose (Glucose Chew Tab) 4-8 Tablets 4 Tabl... UD PRN PO 01/08/17 10:00 02/07/17 09:59 Dextrose (Dextrose 50% 50ML Syringe) 25-50ML OF 50% DW IV FOR... UD PRN IV 01/08/17 10:00 02/07/17 09:59 Glucagon (Glucagon Inj) 1 mg UD PRN SQ 01/08/17 10:00 02/07/17 09:59 Metformin HCl (Glucophage Tab) 500 mg BIDM PO 01/08/17 17:45 02/07/17 17:44 01/17/17 09:13 500 MG Oxycodone HCl (Roxicodone Immediate Rel Tab) 5 mg Taper BID PO 01/10/17 12:00 01/18/17 11:59 01/17/17 09:15 5 MG Tamsulosin HCl (Flomax Cap) 0.4 mg QAM PO 01/12/17 09:00 02/11/17 08:59 01/17/17 09:12 0.4 MG Trazodone HCl (Desyrel Tab) 150 mg HS PO 01/13/17 22:00 02/12/17 21:59 01/16/17 21:28 150 MG Sertraline HCl (Zoloft Tab) 50 mg QAM PO 01/15/17 09:00 02/14/17 08:59 01/17/17 09:15 50 MG Quetiapine Fumarate (seroQUEL TAB) 150 mg HS PO 01/16/17 22:00 02/15/17 21:59 01/16/17 21:28 150 MG Simethicone (Mylicon Chew Tab) 80 mg Q6H PRN PO 01/16/17 11:30 02/15/17 11:29 01/16/17 20:06 80 MG Objective Vital Signs Date Time Temp Pulse Resp B/P Pulse Ox O2 Delivery O2 Flow Rate FiO2 01/17/17 06:43 36.5 75 16 137/87 75 132/86 Physical Exam General Appearance: no apparent distress Respiratory/Chest: no respiratory distress, no accessory muscle use Neurologic/Psychiatric: alert, normal mood/affect, + motor weakness (left side weakness, but improving, left hand and fingers are doing much better today) Laboratory Results Last 24 Hours Test 01/16/17 17:13 01/16/17 20:32 01/17/17 08:50 01/17/17 12:20 Bedside Glucose 116 mg/dl 110 mg/dl 102 mg/dl 105 mg/dl Test 01/17/17 15:50 Bedside Glucose 107 mg/dl Assessment and Plan This is a 41 year old male with a PMH of recent CVA (post-cardiac cath), DM2, HTN, non-obstructive CAD presents to the mental health unit for suicidal ideation and found to have urinary retention with acute kidney injury Acute Kidney Injury secondary to Urinary Retention, resolved 01/17 urinary retention resolved continue Flomax acute kidney injury resolved due to above, last creat 1.0 01/15 doing well today will continue Flomax check basic metabolic profile in the morning 01/13 check PRP in AM continue Flomax no longer requiring catheter should continue Flomax and see urology as outpatient 01/12 creat down to 1.3 and stable started flomax yesterday improved urination as per patient will continue flomax and see how patient is doing hold off on urology consultation for now 01/11 patient states he was once diagnosed with prostate enlargement was once placed on a medication to help him urinate, does not recall what after his stroke in December 2016, he has been retaining urine and self catheterizing at home states that he could urinate in the mornings, but after that needs to cath Renal U/S = negative will start Flomax, and watch how he does hold diuretics at this time creat down to 1.3 from 1.5 and improving will monitor PRP Recent CVA continue current antiplatelet therapy: aspirin + plavix statin dose should be increased, though will speak to the patient about side effects continue gabapentin for symptoms DM2 continue metformin - monitor kidney function with metformin use continue insulin dose as it is HTN blood pressure is stable, continue current medications DVT ppx ambulation, SCDs FULL CODE will sign off on the patient, please reconsult if needed
[2017-01-17] MEDS: TRAZODONE HCL 100 MG TAB PO SCH (22:57)
[2017-01-17] MEDS: QUETIAPINE FUMARATE 100 MG TAB PO SCH (22:58)
[2017-01-18 06:46] VITALS: BP_SYST 114; BP_SYST 118; BP_DIAS 73; BP_DIAS 74; PULSE 74; PULSE 78; TEMP 36.8
[2017-01-18] MEDS: BUDESONIDE/FORMOTEROL FUMARATE 160/4.5 60 PUFFS/INHALER INH SCH ×2 (09:02→22:03)
[2017-01-18] MEDS: TAMSULOSIN HCL 0.4 MG CAP PO SCH (09:02)
[2017-01-18] MEDS: FLUTICASONE PROPIONATE NA SPR 16 GM BTL NAE SCH (09:02)
[2017-01-18] MEDS: METFORMIN HCL 500 MG TAB PO SCH ×2 (09:02→17:03)
[2017-01-18] MEDS: ATORVASTATIN 20 MG TAB PO SCH (09:02)
[2017-01-18] MEDS: ASPIRIN 81 MG ECTAB PO SCH (09:02)
[2017-01-18] MEDS: CLOPIDOGREL BISULFATE 75 MG TAB PO SCH (09:03)
[2017-01-18] MEDS: MONTELUKAST SOD 10 MG TAB PO SCH (09:03)
[2017-01-18] MEDS: GABAPENTIN 400 MG CAP PO SCH ×3 (09:03→22:04)
[2017-01-18] MEDS: OXYCODONE HCL IR 5 MG TAB (IMMEDIATE RELEASE) PO SCH (09:03)
[2017-01-18] MEDS: PANTOprazole SOD 40 MG TAB PO SCH (09:03)
[2017-01-18] MEDS: METOPROLOL SUCC 25MG EXT REL TAB PO SCH (09:03)
[2017-01-18] MEDS: FENOFIBRATE 48 MG TAB PO SCH (09:04)
[2017-01-18] MEDS: SERTRALINE HCL 50 MG TAB PO SCH (09:04)
[2017-01-18] MEDS: NYSTATIN SUSP 500,000 U/5 ML UDC PO SCH ×4 (09:05→22:04)
[2017-01-18] MEDS: INSULIN ASPART 100 UNITS/ML 3 ML PEN SC SCH ×4 (10:04→22:08)
[2017-01-18] MEDS ORDERED: ZLF50 PO (11:00)
[2017-01-18] MEDS ORDERED: DSY/150 PO (11:00)
[2017-01-18] MEDS ORDERED: FLM4 PO ×2 (11:00→11:16)
[2017-01-18] MEDS ORDERED: SRQ100 PO (11:01)
--- NOTE | 2017-01-18 11:11 | Discharge Instructions ---
Discharge Information Report Includes Report will include the: Discharge Instructions & Summary Admission Admission Date / Time: Jan 07, 2017 at 13:46 Reason for Admission: Suicidal Ideation Discharge Discharge Diagnosis / Problem: bipolar depression Condition at Discharge: Good Discharge Goals Goal(s): Increase independence, Improve disease control Activity Recommendations Activity Limitations: resume your previous activity . Instructions / Follow-Up Instructions / Follow-Up . SPECIAL CARE INSTRUCTIONS: 1. Follow through with your scheduled aftercare appointments. If unable to keep an appointment, please call to reschedule. 2. Take your medication only as prescribed. Medication should not be changed or stopped without the approval of your doctor. In the event of worsening symptoms or concerns about side effects, contact your doctor immediately. 3. Utilize new healthy coping skills, anger management skills, and stress management skills learned during your hospitalization. Journal feelings and process them with a support person. Identify stressors or situations that may result in relapse, deterioration or inappropriate behaviors and develop a plan to deal with those issues. 4. If your coping skills are ineffective and you are in crisis, contact your outpatient providers for direction. If unable to reach your providers, please call the CAN HELP LINE AT or go to the closest Emergency Room. 5. Avoid alcohol and un-prescribed drugs. 6. You have been provided with the Mental Health Advance Directives Pamphlet for your review. AFTERCARE APPOINTMENTS: * Please call your insurance company prior to your scheduled appointment to confirm your aftercare providers are covered. Take your insurance information to your appointments. . Discharge / Aftercare Planning Primary Care Physician: Name: Jaxson Eldridge PA-C and Dr Cortes Phone Number: [phone] Date of Appointment: Jan 22, 2017 Time of Appointment: 2:10 Appointment Notes: fax [phone] Psychiatrist: Name: Kim Therapist: Name Of Therapist: Kim Date of Appointment: Jan 09, 2017 Home Health Services: Phone Number: [facility] . Follow-Up Care Plan for Follow-Up Care: you have agreed to in home health services to continue PT and medication monitoring and to reside with your godmother who will oversee safety of your medications 27/05 you should continue your medications as prescribed you were tapered off of narcotic pain medication and PCP will determine appropriate pain clinic referrals Current Hospital Diet Patient's current hospital diet: Diabetes Type 1 Diet Discharge Diet Recommended Diet: Diabetes Type 1 Diet Procedures Procedures Performed: No Pending Studies Pending Studies at Discharge: No Medical Emergencies . Who to Call and When: Medical Emergencies: For questions or emergencies related to your hospital stay, please contact the Inpatient Behavioral Health Unit at [phone]. A ore smelter is on-call 27/05 for the Behavioral Health Unit for emergencies At any time you feel your situation is an emergency, you may also call 911 immediately. . Non-Emergent Contact Non-Emergency issues call your: Primary Care Provider (patient declines to establish at this time as focus of hospitalization was psych not medical) Advance Directives Existing Advance Directive: No Do You Have an Existing Mental: No Existing Living Will: No Existing Power of Jigsaw Operator: No Advance Directives Info Given: To Pt/S.O. Discharge Summary Admission HPI Per the Admitting provider: see H&P. Hospital Course (1) Suicidal ideation Suicide checks for safety. Monitor oral intake and kidney function, as patient had not been eating or drinking prior to admission in an attempt to end his life, and showed signs of dehydration on laboratories. Encourage the patient to attend and participate in group and individual counseling. Family meeting with petitioner or other family member/support person - he is refusing. 01/14 - working on disposition. Patient says his sister Tracy will be his full time staff interpreter caregiver. Will need to contact her to determine if this is feasible. 01/16 - patient said uncle could be his caregiver, but uncle contacted and unable to stay with his due to working. 01/17 - today patient says his godmother can help care for him at home. Consider having PT/OT re-asses for level of care on discharge recommendations, as his strength is improving. Staff to contact home nursing services to determine how much care they can provide at home. (2) Bipolar disorder 01/08 -He is currently on Neurontin 400 mg t.i.d. for back pain, which could serve as a very weak mood stabilizer. We will need to get records from [facility] to determine past medication trials. -Would like to start an SSRI, but would like to see the records regarding his history with SSRIs in the past. -Encourage good sleep-wake cycles. -Coordinate with Alondra with whom he supposedly has an appointment this week. 01/09 - Refusing to sign ROIs for [facility] or friends/family. Will file for 303 with hearing tomorrow as is depressed and overdosing on meds, refused to eat and drink with threats of suicide and had kidney dysfunction on admission due to dehydration, refusing to care for multiple medical problems and refused to take medications as prescribed or seek appropriate levels of care, and unable to care for his basic needs independently. 01/10 - 303 granted. - Today says willing to involve Shavon, who will be his primary support at discharge. Will need family meeting with her and possibly Kim, if she is also going to be helping him at home. He is refusing recommendations for inpatient PT or assisted living, and is only willing to return home. PT and OT have recommended 27/05 in home care, so will need to explore if that is feasible. 01/12 - Patient describing long-standing affective lability complicating acute treatment for depressive symptoms. Must consider recent dose escalation of trazodone may be either beneficial for his mood with some time or possibly may precipitate more acute cycling. He does not find it helpful for sleep. We'll start Seroquel 25 mg by mouth daily at bedtime at least temporarily for sleep and consider titration for more effective mood stabilization, which may allow for more aggressive use of antidepressant pharmacotherapy down the road. He does have a history of elevated hemoglobin A1c, triglycerides, and cholesterol in December. He does not recall a history of waking associated with Seroquel in the past. We reviewed risks and benefits associated with the medication and he verbalized understanding. 01/13 - Tolerated initiation of Seroquel well with some improvement in sleep. Will increase Seroquel to 50 mg daily at bedtime tonight - We'll reduce trazodone to 150 daily at bedtime to reduce serotonin activity overnight secondary to history of long-standing nightmares - Start Zoloft 25 mg by mouth every morning. Patient believes he has tolerated the procedure well in the past. Will obviously need to watch for excessive activation or increased mood cycling given bipolar history 01/14 - Continue quetiapine and increase to 100mg qhs at patient's request. Continue sertraline and increase to 50mg qam for tomorrow. Monitor for activation. - Continue trazodone, but will taper off if quetiapine effective for sleep, in order to minimize agents and avoid polypharmacy. - Fasting lipids checked 12/06/16 and showed high TG 570 and chol 229. Glucose high on 01/14, 115. 01/15 - Increase Seroquel to 150 mg. HS to target sleep (3) Opiate abuse, continuous 01/09 - started taper off oxycodone, due to abuse of this medication 01/10 - continue taper off oxycodone and start taper off Valium. Patient has been abusing these medications, took 20 tabs of oxycodone in less than 24 hours, and does not have an identified outpatient physician willing to prescribe these medications. In addition, opiate and benzos together are contraindicated and increase the risk of lethal overdose. He has demonstrated inability to take these medications appropriately or safely at home, and do not recommend he continue on them outside a controlled and supervised environment. Will need to taper off them here in order to prevent withdrawal at discharge. It appears they were started in the hospital and continued at [facility], but have not been prescribed by an outpatient provider, and he is refusing assisted living or other supervised living where his medications would be dispensed to him. Patient informed of tapers. 01/13 - No signs of withdrawal associated with taper so far (4) Intellectual disability (5) Ischemic stroke - PT/OT consults for treatment here and recommendations for disposition/level of care needed at discharge. Reportedly left [facility] last week. Would like to review their records, but he refused to sign an LIZA. - Assist the patient with ADLs as necessary. - The patient has trouble voiding and self caths at home. We will monitor I\T\ O. - Continue home medications including Plavix and aspirin. 01/15 - Referred for the [facility] program but may take 3 months or more for approval. Will need 24/ supervision at discharge and willing to consider [facility] 01/17 - Adult protective services staff to meet with him today. - Exploring options for family to help care for him at home. - Contact home health nursing that was started on discharge form [facility] to determine what services they can provide. - Consider PT/OT reassessment for level of care needed at discharge, as he feels he has improved physically here. (6) Chronic pain Query [facility] site to confirm dosing of narcotics. His last few Rxs were from inpatient doctors. Unclear if he has an outpatient prescriber for narcotics. Per 302 petition, he was cheeking pain pills in the hospital and brought them home, then was abusing them at home. His UDS was negative for benzos on admission, indicating that he was not taking them as prescribed. He filled a 5 day prescription for oxycodone from Dr. Caro on 01/04/17, so should have bad enough to last him through 01/09, but on admission 01/07 UDS was negative for opiates (but positive for benzos and barbiturates). Nursing to do mouth checks here, and will coordinate with outpatient providers due to concerns for opiate abuse. 01/09 - After review of above information, will taper off of oxycodone, and in the meantime, monitor closely for cheeking/diversion. 01/11 - Confirmed that he had been seen for pain management with [facility], but altered a script in October so no longer getting controlled substances from them, but can return for conservative treatment. 01/12 - discussed consideration for very gentle snri trial, however, he believes he failed to tolerate Cymbalta in the past (7) YOLA (acute kidney injury) 01/09 - Creatinine and BUN elevated on admission. Patient eating some here, will recheck labs today. Cr 1.5, BUN 27. Both values have been elevated during most recent medical admission, but were normal at the beginning of Dec. and during Nov. and Oct. admissions. Will consult medicine to determine need for further workup and if any of his medications need to be changed due to persistent kidney dysfunction. Discussed with Dr. Ahuja, who agreed with plan to taper off medications if not indicated, including oxycodone and diazepam. 01/12 - creat downtrending at 1.3 today. medicine following (8) HTN (hypertension) Continue hydrochlorothiazide, metoprolol, and Lasix p.r.n. Monitor BPs. (9) Obesity Dietary consult to help the patient makes food choices with respect to all of his medical conditions. (10) Asthma (11) Diabetes mellitus type I Diabetic diet. Continue home meds and insulin sliding scale. He is refusing to take insulin at home, although it has been recommended. Consult diabetic pharmacist. Consider need for hospitalist consult. 01/10 - BG remains elevated, and not on insulin at home, but requiring it here. Hgb A1C elevated at 7.5 on 12/27/16. Will consult medicine for recommendations, as patient will likely be going home at discharge. Unclear who is following him as an outpatient. (12) Nicotine addiction Encourage the patient to reduce or quit. We will offered nicotine patch or Nicorette gum p.r.n. (13) Dyslipidemia Continue Lipitor and Tricor at home dosing. Risk Factors Assessment Male: Yes : Yes /single/: Yes Higher / Fall in social status: No Health problems: Yes Substance use disorders: Yes Previous psychiatric stay: No Smoker: Yes Protective Factors Assessment Confucianism beliefs: No : No Responsible for young children: No Employed: No Stable relationships: No Supportive family: No Day of Discharge Assessment Gerber rates his mood as a 9/10 and denies SI. He is positive about his recovery and discharge plan. He is taking medications as prescribed in the hospital and agrees to keep his follow up appointment. Staff deny issues overnight and PT has cleared to return home and resume in home PT with home health agency that will also provide medication monitoring. His god mother has agreed to live with him 27/05 alternating between his apartment and her home only a few minutes away. Laboratory Test 10/31/16 00:50 10/31/16 12:50 11/01/16 05:03 12/03/16 02:35 D-Dimer 220 250 Direct Bilirubin < 0.1 Chemistry Specimen Hemolysis LDL Cholesterol Direct 153 Estimated Average Glucose 166 Hemoglobin A1c 7.4 H Triglycerides Level 324 H Cholesterol Level 213 H HDL Cholesterol 35 LDL Cholesterol, Calculated 113 VLDL Cholesterol, Calculated 65 Cholesterol/HDL Ratio 6.1 Troponin I < 0.015 Test 12/03/16 04:47 12/03/16 06:54 12/03/16 10:15 12/03/16 14:17 POC Troponin I 0.010 0.010 Prothrombin Time 10.0 Prothrombin Time INR 0.9 Total Creatine Kinase 110 Creatine Kinase MB 0.9 Creatine Kinase MB Ratio 0.8 Troponin I < 0.015 Test 12/03/16 23:27 12/04/16 00:35 12/04/16 05:50 12/04/16 16:11 Total Creatine Kinase 86 Creatine Kinase MB 0.8 Creatine Kinase MB Ratio 0.9 Troponin I < 0.015 Triglycerides Level 606 H Cholesterol Level 240 H HDL Cholesterol 36 LDL Cholesterol, Calculated VLDL Cholesterol, Calculated Cholesterol/HDL Ratio 6.7 Total Bilirubin 0.5 Aspartate Amino Transferase (AST) 18 Alanine Aminotransferase (ALT) 36 Alkaline Phosphatase 85 Total Protein 6.7 Albumin 3.6 Globulin 3.1 Albumin/Globulin Ratio 1.2 Amylase Level 33 Thyroid Stimulating Hormone (TSH) 2.710 Test 12/05/16 09:50 12/05/16 10:50 12/06/16 06:45 12/06/16 11:14 PTT 46.6 *H 26.2 Partial Thromboplastin Ratio 1.8 1.0 Estimated Average Glucose 192 Hemoglobin A1c 8.3 H Urine Total Volume 24 Hours 5400 Urine Metanephrine 76 Urine Normetanephrine Level 320 Urine Total Metanephrines 396 Prothrombin Time 10.0 Prothrombin Time INR 0.9 Triglycerides Level 570 H Cholesterol Level 229 H HDL Cholesterol 34 LDL Cholesterol, Calculated VLDL Cholesterol, Calculated Cholesterol/HDL Ratio 6.7 Test 12/06/16 15:03 12/06/16 15:30 12/06/16 16:30 12/06/16 18:00 Lactic Acid Level 1.2 Urine Phencyclidine (PCP) Level NEG NEG Ur Amphetamine/Methamphetamine NEG NEG MDMA (Ecstasy) Screen NEG NEG Urine Hydroxyalprazolam Confirm NEGATIVE 7-Amino Clonazepam Level NEGATIVE Urine Nordiazepam Confirmation 53 A Urine Hydroxyethylflurazepam Level NEGATIVE Urine Lorazepam (GC/MS) NEGATIVE Urine Oxazepam Confirm (GC/MS) NEGATIVE Urine Temazepam Confirmation 61 A Urine Hydroxytriazolam Confirmation NEGATIVE Urine Hydroxymidazolam Confirmation NEGATIVE Urine Cocaine Metabolite NEG NEG Urine Marijuana (THC) NEG NEG Hexagonal Phase Confirmation Negative Protein C Activity 179 Protein S Activity 112 Anti-Thrombin III Activity 117 Factor V Leiden Mutation see note Factor V Leiden Interpretation see note Factor V Leiden Reviewed By see note Prothrombin Gene Mutation see note Prothrombin Gene Mutation Comment see note Prothrombin Mutation Reviewed By see note Homocysteine 5.7 [id number]-Glycoprotein I IgG Ab <9 Zecn-bruh-1-Glycoprotein I IgA Ab <9 Ypnr-[id number]-6-Glycoprotein I IgM Ab 18 Anti-Cardiolipin IgG Antibody <14 Anti-Cardiolipin IgA Antibody <11 Anti-Cardiolipin IgM Antibody 13 H Urine Opiates Screen NEG Urine Methadone, Qualitative NEG Urine Barbiturates NEG Urine Benzodiazepines Screen NEG Test 12/07/16 06:00 12/26/16 00:38 12/26/16 09:08 12/26/16 17:20 Lactic Acid Level 1.2 White Blood Count 10.06 Red Blood Count 4.80 Hemoglobin 14.8 Hematocrit 40.8 L Mean Corpuscular Volume 85.0 Mean Corpuscular Hemoglobin 30.8 Mean Corpuscular Hemoglobin Concent 36.3 H Platelet Count 333 Mean Platelet Volume 9.2 Neutrophils (%) (Auto) 67.2 Lymphocytes (%) (Auto) 25.3 Monocytes (%) (Auto) 5.8 Eosinophils (%) (Auto) 1.0 Basophils (%) (Auto) 0.2 Neutrophils # (Auto) 6.76 H Lymphocytes # (Auto) 2.55 Monocytes # (Auto) 0.58 Eosinophils # (Auto) 0.10 Basophils # (Auto) 0.02 RDW Standard Deviation 39.1 RDW Coefficient of Variation 12.6 Immature Granulocyte % (Auto) 0.5 Immature Granulocyte # (Auto) 0.05 H Urine Color YELLOW Urine Appearance TURBID Urine pH 5.0 Urine Specific Moran 1.011 Urine Protein 1+ Urine Glucose (UA) NEG Urine Ketones NEG Urine Occult Blood 1+ H Urine Nitrite POS H Urine Bilirubin NEG Urine Urobilinogen NEG Urine Leukocyte Esterase LARGE H Urine WBC (Auto) >30 H Urine RBC (Auto) 5-10 H Urine Hyaline Casts (Auto) 1-5 Urine Epithelial Cells (Auto) >30 H Urine Bacteria (Auto) NEG Urine Random Creatinine 130.0 Urine Random Sodium 63 Ethyl Alcohol mg/dL < 3.0 Test 12/26/16 17:30 12/27/16 05:21 01/07/17 05:25 01/07/17 05:50 Urine Creatinine 2 94.1 Urine Opiates Screen POSITIVE A NEG Urine Opiates Confirmation POSITIVE A Urine Oxycodone Screen POSITIVE A Urine Methadone, Qualitative NEGATIVE NEG Urine Methadone Level Urine Barbiturates NEGATIVE POS H Urine Barbiturate Confirmation Urine Phencyclidine Screen NEGATIVE Urine Phencyclidine (PCP) Confirm Urine Amphetamines Screen NEGATIVE Urine Amphetamines Confirmation Urine Benzodiazepines Screen POSITIVE A POS H Urine Benzodiazepine Confirmation POSITIVE A Urine Cocaine Level NEGATIVE Urine Cocaine Metabolite Confirm Urine Marijuana (THC) Screen NEGATIVE Urine Marijuana (THC) Confirmation Urine THC/Creatinine Ratio Urine Drug Screen Comment Estimated Average Glucose 169 Hemoglobin A1c 7.5 H White Blood Count 4.79 L Red Blood Count 3.77 L Hemoglobin 11.0 L Hematocrit 32.1 L Mean Corpuscular Volume 85.1 Mean Corpuscular Hemoglobin 29.2 Mean Corpuscular Hemoglobin Concent 34.3 Platelet Count 238 Mean Platelet Volume 9.2 Neutrophils (%) (Auto) 48.3 Lymphocytes (%) (Auto) 38.6 Monocytes (%) (Auto) 6.3 Eosinophils (%) (Auto) 5.8 Basophils (%) (Auto) 0.8 Neutrophils # (Auto) 2.31 Lymphocytes # (Auto) 1.85 Monocytes # (Auto) 0.30 Eosinophils # (Auto) 0.28 Basophils # (Auto) 0.04 RDW Standard Deviation 39.6 RDW Coefficient of Variation 12.9 Immature Granulocyte % (Auto) 0.2 Immature Granulocyte # (Auto) 0.01 Total Bilirubin 0.3 Aspartate Amino Transferase (AST) 15 Alanine Aminotransferase (ALT) 23 Alkaline Phosphatase 71 Total Protein 6.8 Albumin 3.8 Globulin 3.0 Albumin/Globulin Ratio 1.3 Thyroid Stimulating Hormone (TSH) 1.630 Salicylates Level < 1.7 L Acetaminophen Level < 2 L Ethyl Alcohol mg/dL < 3.0 Urine Color YELLOW Urine Appearance CLEAR Urine pH 5.0 Urine Specific Moran 1.014 Urine Protein NEG Urine Glucose (UA) NEG Urine Ketones NEG Urine Occult Blood 1+ H Urine Nitrite NEG Urine Bilirubin NEG Urine Urobilinogen NEG Urine Leukocyte Esterase NEG Urine WBC (Auto) 1-5 Urine RBC (Auto) 10-30 H Urine Hyaline Casts (Auto) 1-5 Urine Epithelial Cells (Auto) 10-20 H Urine Bacteria (Auto) NEG Urine Butalbital Level 1148 A Urine Phencyclidine (PCP) Level NEG Ur Amphetamine/Methamphetamine NEG MDMA (Ecstasy) Screen NEG Urine Amobarbital Level NEGATIVE Urine Pentobarbital Level NEGATIVE Urine Phenobarbital Level NEGATIVE Urine Secobarbital Level NEGATIVE Urine Hydroxyalprazolam Confirm NEGATIVE 7-Amino Clonazepam Level NEGATIVE Urine Nordiazepam Confirmation 805 A Urine Hydroxyethylflurazepam Level NEGATIVE Urine Lorazepam (GC/MS) NEGATIVE Urine Oxazepam Confirm (GC/MS) 1770 A Urine Temazepam Confirmation 986 A Urine Hydroxytriazolam Confirmation NEGATIVE Urine Hydroxymidazolam Confirmation NEGATIVE Urine Cocaine Metabolite NEG Urine Marijuana (THC) NEG Test 01/10/17 12:38 01/10/17 14:50 01/11/17 07:05 01/12/17 09:24 White Blood Count 9.48 Red Blood Count 3.86 L Hemoglobin 11.6 L Hematocrit 34.0 L Mean Corpuscular Volume 88.1 Mean Corpuscular Hemoglobin 30.1 Mean Corpuscular Hemoglobin Concent 34.1 Platelet Count 237 Mean Platelet Volume 9.6 Neutrophils (%) (Auto) 81.0 Lymphocytes (%) (Auto) 11.1 Monocytes (%) (Auto) 4.9 Eosinophils (%) (Auto) 2.5 Basophils (%) (Auto) 0.3 Neutrophils # (Auto) 7.68 H Lymphocytes # (Auto) 1.05 L Monocytes # (Auto) 0.46 Eosinophils # (Auto) 0.24 Basophils # (Auto) 0.03 RDW Standard Deviation 42.4 RDW Coefficient of Variation 13.3 Immature Granulocyte % (Auto) 0.2 Immature Granulocyte # (Auto) 0.02 Magnesium Level 2.2 2.2 2.1 Total Bilirubin 0.3 Aspartate Amino Transferase (AST) 12 L Alanine Aminotransferase (ALT) 20 Alkaline Phosphatase 77 Total Protein 7.2 Albumin 3.7 Globulin 3.5 Albumin/Globulin Ratio 1.1 Urine Color YELLOW Urine Appearance CLEAR Urine pH 8.0 H Urine Specific Moran 1.017 Urine Protein NEG Urine Glucose (UA) NEG Urine Ketones NEG Urine Occult Blood NEG Urine Nitrite NEG Urine Bilirubin NEG Urine Urobilinogen NEG Urine Leukocyte Esterase NEG Urine Random Creatinine 110.0 Urine Random Sodium 102 Urine Random Urea Nitrogen 655 Sodium Level 142 Potassium Level 4.2 Chloride Level 104 Carbon Dioxide Level 26 Anion Gap 12.0 H Blood Urea Nitrogen 30 H Creatinine 1.30 Est Creatinine Clear Calc Drug Dose 90.5 Estimated GFR () 78.0 Estimated GFR (Non- 67.3 BUN/Creatinine Ratio 23.0 H Random Glucose 148 H Calcium Level 9.2 Test 01/14/17 06:13 01/16/17 08:18 01/17/17 15:50 01/17/17 20:38 Sodium Level 144 142 Potassium Level 4.0 3.9 Chloride Level 106 107 Carbon Dioxide Level 28 28 Anion Gap 10.0 7.0 Blood Urea Nitrogen 28 H 28 H Creatinine 1.10 1.00 Est Creatinine Clear Calc Drug Dose 107.0 117.7 Estimated GFR () 95.5 107.1 Estimated GFR (Non- 82.4 92.4 BUN/Creatinine Ratio 25.5 H 27.5 H Random Glucose 110 H 94 Calcium Level 8.7 8.7 POC Glucose 107 H 123 H Test 01/18/17 07:37 POC Glucose 119 H Total Time Total Time Spent (min): Greater than 30 minutes Total Time Included: examination of the patient, discharge planning, medication reconciliation Tobacco Cessation at Discharge FDA approved Prescription: patient refused (uses oral tobacco, doesn't want to quit despite risks oral cancer, declines outpatient counseling) Problem Qualifiers (1) Diabetes mellitus type I: Diabetes mellitus complication status: with unspecified complications Qualified Codes: E10.8 - Type 1 diabetes mellitus with unspecified complications
[2017-01-18] MEDS: ACETAMINOPHEN 325 MG TAB PO PRN (15:15)
[2017-01-18] MEDS ORDERED: ATR25 PO (17:01)
--- NOTE | 2017-01-18 17:16 | Psych Management Progress Note ---
Psychiatry Miscellaneous Date of Service: Jan 18, 2017. This letter serves as prescription for home health services as medically necessary to support patient's transition home; services to include weekly VS and medication education/monitoring in addition to PT/OT assessment and treat. Would recommend resume at same hours as prior to mental health stay.
[2017-01-19] MEDS: TRAZODONE HCL 100 MG TAB PO SCH (00:04)
[2017-01-19] MEDS: QUETIAPINE FUMARATE 100 MG TAB PO SCH (00:04)
[2017-03-21] MEDS ORDERED: ATOR-22 PO (15:49)
[2017-03-21] MEDS ORDERED: HYDR25TA5 PO (15:49)
[2017-03-21] MEDS ORDERED: NYSS/ PO (15:49)
[2017-03-21] MEDS ORDERED: PANT40TA PO (15:49)
[2017-03-21] MEDS ORDERED: TPRSR25 PO (15:49)
[2017-05-23] MEDS ORDERED: ATOR-22 PO (13:22)
[2017-06-25] MEDS ORDERED: FLUT0.15 NAE (03:53)
[2017-06-25] MEDS ORDERED: CLOP1TAB15 PO (15:49)
[2017-06-25] MEDS ORDERED: GABA1CAP5 PO (15:49)
[2017-06-25] MEDS ORDERED: FENO48TA9 PO (15:49)
[2017-06-25] MEDS ORDERED: METF500T PO (15:57)
[2017-06-25] MEDS ORDERED: MONT1TAB3 PO (16:15)
[2017-06-25] MEDS ORDERED: QUET1TAB34 PO (18:50)
[2017-07-26] MEDS ORDERED: ASPI81TA28 PO (03:53)
== END 2017-01-19 00:05 | disposition home health service (06) | DRG 885 ==
LOC: C.EDB 04:48 → C.MHU 13:46
PROVIDERS: ADMIT Psychiatry & Neurology Psychiatry; ATTEND Psychiatry & Neurology Psychiatry
DX: F31.9 Bipolar disorder, unspecified (principal); I69.354 Hemiplegia and hemiparesis following cerebral infarction affecting left non-dominant side; N17.9 Acute kidney failure, unspecified; R45.851 Suicidal ideations; E10.8 Type 1 diabetes mellitus with unspecified complications; F71 Moderate intellectual disabilities; I10 Essential (primary) hypertension; R33.9 Retention of urine, unspecified; F11.10 Opioid abuse, uncomplicated; E78.5 Hyperlipidemia, unspecified; I25.10 Atherosclerotic heart disease of native coronary artery without angina pectoris; J45.909 Unspecified asthma, uncomplicated; K21.9 Gastro-esophageal reflux disease without esophagitis; F17.200 Nicotine dependence, unspecified, uncomplicated; G47.33 Obstructive sleep apnea (adult) (pediatric); E66.9 Obesity, unspecified; Z79.82 Long term (current) use of aspirin; Z79.02 Long term (current) use of antithrombotics/antiplatelets; Z79.899 Other long term (current) drug therapy; Z79.4 Long term (current) use of insulin; Z84.1 Family history of disorders of kidney and ureter; Z82.49 Family history of ischemic heart disease and other diseases of the circulatory system; Z83.3 Family history of diabetes mellitus; Z83.6 Family history of other diseases of the respiratory system; Z91.19 Patient's noncompliance with other medical treatment and regimen

== ENCOUNTER 2017-03-21 21:43 | Emergency (ER) | payer OTHER ==
[~2017-03-21] VITALS: Ht 175.3 cm; Wt 114.4 kg
[~2017-03-21 21:43] MED LIST changes: +ATR25 PO; -BNT10 PO; -CPR500 PO; -DIAZ-165 PO; +DSY/150 PO; +FLM4 PO; -FURO-85 PO; -METF500T5 PO; -NRN400 PO; +NYSS/ PO; -NYSS5 PO; -ORPH100T PO; -OXYC15TA49 PO; +PANT40TA PO; -PLV75 PO; -PRT40 PO; +QUET-115 PO; -TRAZ100T29 PO; -TRC48 PO; +ZLF50 PO
[2017-03-21 21:56] VITALS: TEMP 37; Ht 175.3 cm; Wt 114.4 kg
--- NOTE | 2017-03-21 22:17 | DIAGNOSTIC IMAGING REPORT ---
LEFT KNEE 3 VIEWS CLINICAL HISTORY: left knee pain and hematoma pain COMPARISON: None. DISCUSSION: Findings consistent with a prior anterior cruciate ligament repair. Mild degenerative change medial joint compartment and patellofemoral joint. No evidence for fracture or dislocation. Cortical margins are intact. There is no evidence for soft tissue swelling. IMPRESSION: Degenerative and postoperative change. No acute process. Electronically signed by: Mukesh Uribe M.D. 03/21/2017 10:16 PM Dictated Date/Time: 03/21/2017 10:15 PM
--- NOTE | 2017-03-21 22:33 | EMERGENCY ROOM VISIT NOTE ---
History Report prepared by Hebert: Airam hTompson Under the Supervision of: Dr. Ugo Prasad M.D. First contact with patient: 21:49 Chief Complaint: KNEEPAIN Stated Complaint: LEFT KNEE PAIN & SWELLING History of Present Illness The patient is a 41 year old male who presents to the Emergency Room with complaints of worsening left knee pain for the past week. He felt a "pop" in his left knee while he was walking from the bathroom into the living room. He states that since that time he has had difficulty ambulating and bearing any weight on the left leg. The patient notes some bruising to the area. He saw his PCP for these symptoms and he had an MRI ordered. The patient states that his pain has worsened. He rates his current pain as a 6/10 in severity. He has a history of a left ACL reconstruction surgery. He is on Plavix. The patient denies fevers and vomiting. He was brought to the ED by ambulance. Source of History: patient Onset: 1 week ago Position: knee (left) Symptom Intensity: 6/10 Timing: worsening Modifying Factors (Worsening): movement, other (weight bearing) Associated Symptoms: No fevers, No vomiting Review of Systems See HPI for pertinent positives & negatives. A total of 6 systems reviewed and were otherwise negative. Past Medical & Surgical Medical Problems: (1) YOLA (acute kidney injury) (2) Anxiety (3) Asthma (4) Bipolar disorder (5) Chronic pain (6) Diabetes mellitus type I (7) Dyslipidemia (8) GERD (gastroesophageal reflux disease) (9) HTN (hypertension) (10) Intellectual disability (11) Ischemic stroke (12) Nicotine addiction (13) Obesity (14) Opiate abuse, continuous (15) JOSE (obstructive sleep apnea) (16) Suicidal ideation Surgical Problems: (1) History of tonsillectomy and adenoidectomy (2) Hx of reconstruction of anterior cruciate ligament tear (3) S/P left knee arthroscopy Social History Problems: (1) Tobacco use Family History Diabetes mellitus FH: cancer FH: lung disease FHx: gallbladder disease FHx: heart disease Hypertension Kidney disease Kidney stones Social History Smoking Status: Never Smoker Alcohol Use: none Drug Use: none Marital Status: Housing Status: lives alone Occupation Status: disabled Current/Historical Medications Scheduled Aspirin (Aspirin Ec), 81 MG PO DAILY Atorvastatin (Lipitor), 20 MG PO DAILY Budesonide/Formoterol Fumarate (Symbicort 160/4.5 Inhaler), 2 PUFFS INH BID Clopidogrel (Plavix), 75 MG PO DAILY Fenofibrate (Tricor), 48 MG PO DAILY Fluticasone Propionate (Nasal) (Flonase Allergy Relief), 2 SPRAYS CAROLEE DAILY Gabapentin (Neurontin), 400 MG PO TID Hydrochlorothiazide (Hydrochlorothiazide), 25 MG PO DAILY Metformin Hcl (Glucophage), 1 TAB PO BIDM Metoprolol Succinate (Metoprolol Succinate ER), 25 MG PO DAILY Montelukast Sodium (Singulair), 10 MG PO DAILY Nystatin (Nystatin Suspension), 5 ML PO QID Oxycodone Hcl (Oxycontin), 15 MG PO UD Pantoprazole (Protonix), 40 MG PO DAILY Tamsulosin Hcl (Flomax), 0.4 MG PO QAM Trazodone Hcl (Desyrel), 150 MG PO HS Scheduled PRN Docusate Sodium (Stool Softener), 100 MG PO TID PRN for Constipation Allergies Coded Allergies: Hydrocodone (Verified Allergy, Unknown, hives, itching, 01/07/17) Tramadol (Unverified Allergy, Unknown, VOMITING, 01/07/17) Physical Exam Vital Signs Date Time Temp Pulse Resp B/P Pulse Ox O2 Delivery O2 Flow Rate FiO2 03/21/17 23:20 74 18 137/80 98 03/21/17 21:56 37.0 79 18 159/114 96 Room Air Physical Exam GENERAL: Patient is well appearing and in no acute distress. NECK: No stridor, no adenopathy, no meningismus, trachea is midline. EXTREMITIES: Hematoma/bruise to the medial left knee, some tenderness to palpation of the medial left knee, mild tenderness to palpation of the anterior knee, no increased warmth, no erythema. NEUROLOGIC: Alert and oriented, weakness and ataxia left arm, mild weakness and ataxia left leg. SKIN: No rash, no jaundice, no diaphoresis. Medical Decision & Procedures ER Provider Diagnostic Interpretation: Radiology results and stated below per my review and radiologist interpretation: LEFT KNEE 3 VIEWS CLINICAL HISTORY: left knee pain and hematoma pain COMPARISON: None. DISCUSSION: Findings consistent with a prior anterior cruciate ligament repair. Mild degenerative change medial joint compartment and patellofemoral joint. No evidence for fracture or dislocation. Cortical margins are intact. There is no evidence for soft tissue swelling. IMPRESSION: Degenerative and postoperative change. No acute process. Electronically signed by: Mukesh Uribe M.D. 03/21/2017 10:16 PM Dictated Date/Time: 03/21/2017 10:15 PM ED Course 2149: The patient was evaluated in room C11B. A complete history and physical exam was performed. 2236: I reassessed the patient at this time. He is feeling better and resting comfortably. I discussed the results and treatment plan with the patient. I answered all pertaining questions that he had. He expressed understanding and verbalized agreement. The patient will be discharged home and will follow up with his PCP. Medical Decision Differential: Fracture, Dislocation, Cellulitis, Septic Joint, Ligamentous Injury, Effusion, DVT, amongst other pathologies entertained. 41 yr old male with injury several days ago to left knee. Suspect ligamentous injury. He is on plavix and hematoma is consistent with this. Imaging with arthritic changes. There is no evidence of septic joint nor cellulitis. This is not consistent with a DVT. There is likely mild effusion from blood. No fracture/dislocation by imaging. He already has MRI ordered by PCP. Advised he continue following with PCP and if necessary Ortho. Impression Primary Impression: Traumatic hematoma of left knee Additional Impressions: Left knee sprain Osteoarthritis of left knee Scribe Attestation The scribe's documentation has been prepared under my direction and personally reviewed by me in its entirety. I confirm that the note above accurately reflects all work, treatment, procedures, and medical decision making performed by me. Departure Information Dispostion Home / Self-Care Referrals Primary Care Provider Forms HOME CARE DOCUMENTATION FORM, IMPORTANT VISIT INFORMATION Patient Instructions My [facility] Additional Instructions Continue to follow with your primary care provider for further work-up and evaluation of your knee issues. You may need to be seen by Orthopedic Surgery, please discuss this with your primary care provider. Try to limit further injury to area, keep elevated and avoid further injury. Use Tylenol as needed for pain control. Discuss with your primary care provider if further pain medications are necessary. Problem Qualifiers Primary Impression: Traumatic hematoma of left knee Encounter type: initial encounter Qualified Codes: S80.02XA - Contusion of left knee, initial encounter Additional Impressions: Left knee sprain Encounter type: initial encounter Involved ligament of knee: unspecified ligament Qualified Codes: S83.92XA - Sprain of unspecified site of left knee, initial encounter Osteoarthritis of left knee Osteoarthritis type: unspecified Qualified Codes: M17.12 - Unilateral primary osteoarthritis, left knee
[2017-03-21] MEDS ORDERED: TAMS0.4C38 PO (22:34)
[2017-03-21 23:20] VITALS: BP 137/80; PULSE 74; O2SAT 98
[2017-05-23] MEDS ORDERED: ATOR-22 PO (13:22)
[2017-06-25] MEDS ORDERED: FLUT0.15 NAE (03:53)
[2017-06-25] MEDS ORDERED: CLOP1TAB15 PO (15:49)
[2017-06-25] MEDS ORDERED: GABA1CAP5 PO (15:49)
[2017-06-25] MEDS ORDERED: FENO48TA9 PO (15:49)
[2017-06-25] MEDS ORDERED: METF500T PO (15:57)
[2017-06-25] MEDS ORDERED: MONT1TAB3 PO (16:15)
[2017-06-25] MEDS ORDERED: QUET1TAB34 PO (18:50)
[2017-07-26] MEDS ORDERED: ASPI81TA28 PO (03:53)
[2017-07-26] MEDS ORDERED: QUET-115 PO (21:29)
[2017-07-26] MEDS ORDERED: PANT40TA2 PO (21:31)
== END 2017-03-21 23:21 | disposition home or self-care (01) ==
LOC: EDBD 21:43 → C.EDC 21:44
DX: S80.02XA Contusion of left knee, initial encounter (principal); S83.92XA Sprain of unspecified site of left knee, initial encounter; M17.12 Unilateral primary osteoarthritis, left knee; X58.XXXA Exposure to other specified factors, initial encounter; Z79.01 Long term (current) use of anticoagulants; J45.909 Unspecified asthma, uncomplicated; F41.9 Anxiety disorder, unspecified; F31.9 Bipolar disorder, unspecified; G89.29 Other chronic pain; E10.9 Type 1 diabetes mellitus without complications; E78.5 Hyperlipidemia, unspecified; K21.9 Gastro-esophageal reflux disease without esophagitis; I10 Essential (primary) hypertension; F79 Unspecified intellectual disabilities; Z86.73 Personal history of transient ischemic attack (TIA), and cerebral infarction without residual deficits; E66.9 Obesity, unspecified; Z68.37 Body mass index [BMI] 37.0-37.9, adult; F11.10 Opioid abuse, uncomplicated; G47.33 Obstructive sleep apnea (adult) (pediatric); Z87.891 Personal history of nicotine dependence; Z83.3 Family history of diabetes mellitus; Z80.9 Family history of malignant neoplasm, unspecified; Z82.49 Family history of ischemic heart disease and other diseases of the circulatory system; Z84.1 Family history of disorders of kidney and ureter; Z79.82 Long term (current) use of aspirin; Z79.899 Other long term (current) drug therapy

== ENCOUNTER 2017-05-21 15:50 | Inpatient (IN) | payer OTHER ==
[~2017-05-21] VITALS: Ht 175.3 cm; Wt 109.8 kg
[~2017-05-21 15:50] MED LIST changes: -ATR25 PO; -DSY/150 PO; -FLM4 PO; -QUET-115 PO; +TAMS0.4C38 PO; -ZLF50 PO
[2017-05-21 15:56] VITALS: Ht 175.3 cm; Wt 109.8 kg
[2017-05-21] MEDS ORDERED: ONDANSETRON INJ 2 MG/ML 2 ML VIAL IV STA (16:26)
[2017-05-21] MEDS ORDERED: PROCHLORPERAZINE 5 MG/ML 2 ML VIAL IV STA (16:26)
[2017-05-21] MEDS ORDERED: DiphenhydrAMINE HCL 50 MG/ML VIAL IV STA (16:26)
--- NOTE | 2017-05-21 16:48 | EMERGENCY ROOM VISIT NOTE ---
History Report prepared by Hebert: Pavan Waddell Under the Supervision of: Dr. Toribio Wiley M.D. First contact with patient: 16:19 Chief Complaint: NEURO SYMPTOMS Stated Complaint: STROKE SX, HEADACHE Nursing Triage Summary: Pt arrives via ALS litter for eval of h/a rated 9/10. EMS reports slurred speech, left sided weakness, left sided facial droop. Pt reports "no feeling" in left hand and right 5th finger. Pt states that when he takes a drink it runs out of the left side of his mouth, but this has been happening for a couple months. Pt states, "I was at my daughter and her mother's house and they never saw that before so they got worried." Pt reports hot/cold flashes "for months". Nausea that started today. Pt has a hx of CVA with left sided deficits. History of Present Illness The patient is a 41 year old male who presents to the Emergency Room with complaints of a constant headache beginning this morning. He currently rates his discomfort an 8/10 in severity. The patient states that he woke up this morning to take his car to the shop. He reports that his headache was already present, and when he returned home, his left-sided facial droop was present. The patient notes that his family made him come to the ED even though he did not want to. He states that he has a history of a bad CVA in December that affected the left side of his body. The patient reports that he has not fully recovered yet and has waxing and waning facial droop, slurred speech, and inability to swallow fluids. He notes that he had an EMG that showed his nerves were completely gone. The patient states that, this morning, intermittent nausea began that has not stopped. He reports that he has also had decreased urinary frequency. The patient denies a cough, congestion, fever, and trauma to the head. He notes that he his last meal was last night. The patient states that he has had a history of headaches, and they have increased since his stroke. The patient reports that he took 2400 mg of Ibuprofen throughout the day , and it has not helped. He notes that he is currently taking Plavix. Source of History: patient Onset: this morning Position: head Symptom Intensity: 8/10 Quality: ache Timing: constant Associated Symptoms: + nausea, No fevers, No cough Note: Associated symptoms: left-sided facial droop Denies: congestion and trauma to the head. Review of Systems See HPI for pertinent positives & negatives. A total of 10 systems reviewed and were otherwise negative. Past Medical & Surgical Medical Problems: (1) YOLA (acute kidney injury) (2) Anxiety (3) ARF (acute renal failure) (4) Asthma (5) Bipolar disorder (6) Chronic pain (7) Diabetes mellitus type I (8) Dyslipidemia (9) GERD (gastroesophageal reflux disease) (10) HTN (hypertension) (11) Intellectual disability (12) Ischemic stroke (13) Nicotine addiction (14) Obesity (15) Opiate abuse, continuous (16) JOSE (obstructive sleep apnea) (17) Suicidal ideation Surgical Problems: (1) History of tonsillectomy and adenoidectomy (2) Hx of reconstruction of anterior cruciate ligament tear (3) S/P left knee arthroscopy Social History Problems: (1) Tobacco use Family History Diabetes mellitus FH: cancer FH: lung disease FHx: gallbladder disease FHx: heart disease Hypertension Kidney disease Kidney stones Social History Smoking Status: Never Smoker Alcohol Use: none Drug Use: none Marital Status: Housing Status: lives alone Occupation Status: disabled Current/Historical Medications Scheduled Aspirin (Aspirin Ec), 81 MG PO DAILY Atorvastatin (Lipitor), 20 MG PO DAILY Budesonide/Formoterol Fumarate (Symbicort 160/4.5 Inhaler), 2 PUFFS INH BID Clopidogrel (Plavix), 75 MG PO DAILY Fenofibrate (Tricor), 48 MG PO HS Fluticasone Propionate (Nasal) (Flonase Allergy Relief), 2 SPRAYS CAROLEE DAILY Gabapentin (Neurontin), 400 MG PO TID Hydrochlorothiazide (Hydrochlorothiazide), 25 MG PO DAILY Metformin Hcl (Glucophage), 500 MG PO AMHS Metoprolol Succinate (Metoprolol Succinate ER), 25 MG PO DAILY Montelukast Sodium (Singulair), 10 MG PO DAILY Oxycodone Hcl (Oxycontin), 15 MG PO 5XD Quetiapine Fumarate (Seroquel), 100 MG PO HS Tamsulosin Hcl (Flomax), 0.4 MG PO QAM Trazodone Hcl (Desyrel), 150 MG PO HS Scheduled PRN Docusate Sodium (Stool Softener), 100 MG PO TID PRN for Constipation Allergies Coded Allergies: Hydrocodone (Verified Allergy, Unknown, hives, itching, 05/21/17) Tramadol (Unverified Adverse Reaction, Unknown, VOMITING, 05/21/17) Physical Exam Vital Signs Date Time Temp Pulse Resp B/P (MAP) Pulse Ox O2 Delivery O2 Flow Rate FiO2 05/21/17 18:12 65 18 108/74 94 Room Air 05/21/17 16:05 64 05/21/17 15:56 37.3 64 18 148/73 95 Room Air 05/21/17 15:55 96 Room Air Physical Exam GENERAL: Patient is in no acute distress. HEENT: No acute trauma, normocephalic atraumatic, mucous membranes moist, no nasal congestion, no scleral icterus. NECK: No stridor, no adenopathy, no meningismus, trachea is midline. LUNGS: Clear to auscultation bilaterally, no wheeze, no rhonchi, breath sounds equal. HEART: Without murmurs gallops or rubs, regular rate and rhythm. ABDOMEN: Soft, nontender, bowel sounds positive, no hernias, no peritonitis. EXTREMITIES: No cyanosis or edema, full range of motion of all the joints without pain or difficulty, no signs for acute trauma. NEUROLOGIC: Left facial droop with left arm and leg weakness associated with previous stroke. Awake alert and oriented x3. SKIN: No rash, no jaundice, no diaphoresis. Medical Decision & Procedures ER Provider Diagnostic Interpretation: Radiology results as stated below per my review and radiologist interpretation: CT HEAD WITHOUT CONTRAST (CT) CLINICAL HISTORY: Severe headache COMPARISON STUDY: 12/26/2016 TECHNIQUE: Axial CT of the brain is performed from the vertex to the skull base. IV contrast was not administered for this examination. CT DOSE: 638.84 mGy.cm FINDINGS: No intra or extra-axial mass lesions are visualized. There is no CT evidence of acute cortical infarction. There is no evidence of midline shift. There is no acute hemorrhage. No calvarial fractures are visualized. There is an old infarct in the right middle cervical artery territory. There is no evidence of pathologic ventricular dilatation. There is minimal compensatory dilatation of the right lateral ventricle There is no evidence of acute sinusitis IMPRESSION: Old right MCA territory infarct. No acute intracranial findings. Electronically signed by: Crow Frances M.D. 05/21/2017 4:54 PM Dictated Date/Time: 05/21/2017 4:49 PM CHEST ONE VIEW PORTABLE CLINICAL HISTORY: Headache, weakness. Stroke symptoms. COMPARISON STUDY: 12/03/2016 FINDINGS: The cardiac and mediastinal contours are normal. There is no evidence of focal pulmonary consolidation. There is no evidence of failure. No pleural effusions are visualized.[ IMPRESSION: No active disease in the chest. Electronically signed by: Crow Frances M.D. 05/21/2017 4:47 PM Dictated Date/Time: 05/21/2017 4:40 PM MRI OF THE BRAIN WITHOUT CONTRAST CLINICAL HISTORY: Headache. Possible new stroke. COMPARISON STUDY: 12/05/2016, CT scan of the head dated 05/21/2017 FINDINGS: Sagittal T1, axial diffusion, proton density and T2 weighted axial, coronal FLAIR, and axial T1-weighted images were acquired. No intra or extra-axial mass lesions are visualized Axial diffusion-weighted images reveal no evidence of acute or subacute infarction. There is no evidence of ventricular dilatation. Proton density T2-weighted and FLAIR images reveal scattered foci of increased T2 signal within the white matter, likely on a small vessel basis. There is an old infarct in the right middle cerebral artery distribution. There are no abnormal flow voids. There is a partially empty sella IMPRESSION: 1. No evidence of acute or subacute infarction 2. Old infarct in the distribution of the right middle cerebral artery 3. No evidence of intracranial mass on this noncontrast study Electronically signed by: Crow Frances M.D. 05/21/2017 5:55 PM Dictated Date/Time: 05/21/2017 5:52 PM Laboratory Results 05/21/17 16:58 Red Blood Count 4.56, Mean Corpuscular Volume 84.0, Mean Corpuscular Hemoglobin 29.8, Mean Corpuscular Hemoglobin Concent 35.5, Mean Platelet Volume 9.2, Neutrophils (%) (Auto) 75.8, Lymphocytes (%) (Auto) 16.4, Monocytes (%) (Auto) 6.0, Eosinophils (%) (Auto) 1.3, Basophils (%) (Auto) 0.4, Neutrophils # (Auto) 5.68, Lymphocytes # (Auto) 1.23, Monocytes # (Auto) 0.45, Eosinophils # (Auto) 0.10, Basophils # (Auto) 0.03 05/21/17 16:58 Test 05/21/17 16:08 05/21/17 16:58 Bedside Glucose 92 mg/dl (70-99) White Blood Count 7.50 K/uL (4.8-10.8) Red Blood Count 4.56 M/uL (4.7-6.1) Hemoglobin 13.6 g/dL (14.0-18.0) Hematocrit 38.3 % (42-52) Mean Corpuscular Volume 84.0 fL (80-100) Mean Corpuscular Hemoglobin 29.8 pg (25-34) Mean Corpuscular Hemoglobin Concent 35.5 g/dl (32-36) Platelet Count 244 K/uL (130-400) Mean Platelet Volume 9.2 fL (7.4-10.4) Neutrophils (%) (Auto) 75.8 % Lymphocytes (%) (Auto) 16.4 % Monocytes (%) (Auto) 6.0 % Eosinophils (%) (Auto) 1.3 % Basophils (%) (Auto) 0.4 % Neutrophils # (Auto) 5.68 K/uL (1.4-6.5) Lymphocytes # (Auto) 1.23 K/uL (1.2-3.4) Monocytes # (Auto) 0.45 K/uL (0.11-0.59) Eosinophils # (Auto) 0.10 K/uL (0-0.5) Basophils # (Auto) 0.03 K/uL (0-0.2) RDW Standard Deviation 39.7 fL (36.4-46.3) RDW Coefficient of Variation 13.2 % (11.5-14.5) Immature Granulocyte % (Auto) 0.1 % Immature Granulocyte # (Auto) 0.01 K/uL (0.00-0.02) Prothrombin Time 10.3 SECONDS (9.0-12.0) Prothromb Time International Ratio 1.0 (0.9-1.1) Activated Partial Thromboplast Time 28.7 SECONDS (21.0-31.0) Partial Thromboplastin Ratio 1.1 Anion Gap 11.0 mmol/L (3-11) Est Creatinine Clear Calc Drug Dose 34.6 ml/min Estimated GFR () 24.4 Estimated GFR (Non- 21.0 BUN/Creatinine Ratio 8.2 (10-20) Calcium Level 9.1 mg/dl (8.5-10.1) Total Bilirubin 0.4 mg/dl (0.2-1) Aspartate Amino Transf (AST/SGOT) 9 U/L (15-37) Alanine Aminotransferase (ALT/SGPT) 14 U/L (12-78) Alkaline Phosphatase 71 U/L (45-117) Total Protein 7.3 gm/dl (6.4-8.2) Albumin 4.0 gm/dl (3.4-5.0) Globulin 3.3 gm/dl (2.5-4.0) Albumin/Globulin Ratio 1.2 (0.9-2) Laboratory results reviewed by me. Medications Administered Medications (Trade) Dose Ordered Sig/Ney Route Start Time Stop Time Status Last Admin Dose Admin Prochlorperazine Edisylate (Compazine Inj) 10 mg NOW STAT IV 05/21/17 16:26 05/21/17 16:29 DC 05/21/17 16:43 10 MG Ondansetron HCl (Zofran Inj) 4 mg NOW STAT IV 05/21/17 16:26 05/21/17 16:29 DC 05/21/17 16:43 4 MG Diphenhydramine HCl (Benadryl Inj) 50 mg NOW STAT IV 05/21/17 16:26 05/21/17 16:29 DC 05/21/17 16:43 50 MG Sodium Chloride 1,000 ml @ 999 mls/hr Q1H1M STAT IV 05/21/17 17:33 05/21/17 18:33 DC 05/21/17 18:13 999 MLS/HR Sodium Chloride 1,000 ml @ 200 mls/hr Q5H STAT IV 05/21/17 17:33 05/21/17 22:32 05/21/17 18:14 200 MLS/HR ECG Indication: weakness Rate (beats per minute): 59 Rhythm: sinus bradycardia Findings: no acute ischemic change, no ectopy ED Course 1620: The patient was evaluated in room A11B. A complete history and physical exam was performed. 1626: Ordered Benadryl Inj 50 mg IV, Zofran Inj 4 mg IV, Compazine Inj 10 mg IV 1733: Ordered Sodium Chloride 1000 ml @ 200 mls/hr IV, Sodium Chloride 1000 ml @ 999 mls/hr IV 1806: Upon reexamination the patient is resting. I discussed results and treatment plan with the patient. He verbalizes agreement and understanding. 1810: I discussed the patient's case with Tracee Farooq [facility]-C, [facility]. The patient will be evaluated for further management. Medical Decision Differential diagnosis includes: new stroke, intracranial bleeding, dehydration , pneumonia, UTI, migraine headache, tension headache I did review the patient's medication list. Patient's blood pressure was mildly elevated and likely situational, outpatient follow-up was not necessary. There is no leukocytosis or concerning anemia. Renal panel testing shows acute renal failure. No hepatitis. EKG shows a sinus bradycardia, no acute ischemia. Brain CT shows no acute bleed or mass effect, chronic changes were seen. Brain MRI shows evidence for his old stroke, no acute or subacute stroke seen. Chest x-ray does not show pneumonia. On exam, the patient does have some left facial droop and left-sided extremity weakness but this is consistent with his previous CVA. Patient received IV saline, he received IV Compazine and IV Benadryl for his headache. He received IV Zofran for nausea. I believe that his acute renal failure has led to his worsening left-sided weakness. No findings of new CVA. I did speak to the patient and case management. The on-call hospitalist was consulted. Consults Time Called: 1803 Consulting Physician: Tracee Farooq [facility]-C, [facility] Returned Call: 1810 I discussed the patient's case with Tracee Farooq PA-C, [facility]. The patient will be evaluated for further management. Impression Primary Impression: Acute renal failure Additional Impression: Left-sided weakness Scribe Attestation The scribe's documentation has been prepared under my direction and personally reviewed by me in its entirety. I confirm that the note above accurately reflects all work, treatment, procedures, and medical decision making performed by me. Departure Information Dispostion Being Evaluated By Hospitalist Thea Weems M.D. (PCP) Patient Instructions My [facility] Problem Qualifiers
--- NOTE | 2017-05-21 16:55 | DIAGNOSTIC IMAGING REPORT ---
CT HEAD WITHOUT CONTRAST (CT) CLINICAL HISTORY: Severe headache COMPARISON STUDY: 12/26/2016 TECHNIQUE: Axial CT of the brain is performed from the vertex to the skull base. IV contrast was not administered for this examination. CT DOSE: 638.84 mGy.cm FINDINGS: No intra or extra-axial mass lesions are visualized. There is no CT evidence of acute cortical infarction. There is no evidence of midline shift. There is no acute hemorrhage. No calvarial fractures are visualized. There is an old infarct in the right middle cervical artery territory. There is no evidence of pathologic ventricular dilatation. There is minimal compensatory dilatation of the right lateral ventricle There is no evidence of acute sinusitis IMPRESSION: Old right MCA territory infarct. No acute intracranial findings. Electronically signed by: Crow Frances M.D. 05/21/2017 4:54 PM Dictated Date/Time: 05/21/2017 4:49 PM
[2017-05-21 17:09] LABS: BASO % 0.4 %; BASO ABS # 0.03 K/uL (0-0.2); COMPLETE YES; EOS % 1.3 %; HEMATOCRIT 38.3 % (42-52); IG% 0.1 %; LYMPH % 16.4 %; LYMPH ABS # 1.23 K/uL (1.2-3.4); MEAN CORPUSCULAR HEMOGLOBIN 29.8 pg (25-34); MEAN CORPUSCULAR HGB CONC 35.5 g/dl (32-36); MEAN PLATELET VOLUME 9.2 fL (7.4-10.4); NEUT % 75.8 %; PLATELET COUNT 244 K/uL (130-400); RED BLOOD COUNT 4.56 M/uL (4.7-6.1)
[2017-05-21 17:25] LABS: PARTIAL THROMBOPLASTIN RATIO 1.1; PROTHROMBIN TIME (PATIENT) 10.3 SECONDS (9.0-12.0)
[2017-05-21 17:26] LABS: BUN/CREATININE RATIO 8.2 (10-20); CALCIUM 9.1 mg/dl (8.5-10.1); CREATININE 3.4 mg/dl (0.60-1.40); POTASSIUM 3.7 mmol/L (3.5-5.1)
[2017-05-21 17:29] LABS: ALB/GLOB RATIO 1.2 (0.9-2)
[2017-05-21] MEDS ORDERED: SODIUM CHLORIDE 0.9% 1000ML 1,000 ML IV STA ×2 (17:33)
--- NOTE | 2017-05-21 17:56 | DIAGNOSTIC IMAGING REPORT ---
MRI OF THE BRAIN WITHOUT CONTRAST CLINICAL HISTORY: Headache. Possible new stroke. COMPARISON STUDY: 12/05/2016, CT scan of the head dated 05/21/2017 FINDINGS: Sagittal T1, axial diffusion, proton density and T2 weighted axial, coronal FLAIR, and axial T1-weighted images were acquired. No intra or extra-axial mass lesions are visualized Axial diffusion-weighted images reveal no evidence of acute or subacute infarction. There is no evidence of ventricular dilatation. Proton density T2-weighted and FLAIR images reveal scattered foci of increased T2 signal within the white matter, likely on a small vessel basis. There is an old infarct in the right middle cerebral artery distribution. There are no abnormal flow voids. There is a partially empty sella IMPRESSION: 1. No evidence of acute or subacute infarction 2. Old infarct in the distribution of the right middle cerebral artery 3. No evidence of intracranial mass on this noncontrast study Electronically signed by: Crow Frances M.D. 05/21/2017 5:55 PM Dictated Date/Time: 05/21/2017 5:52 PM
[2017-05-21 19:23] VITALS: BP 123/72; PULSE 52; TEMP 37.3; O2SAT 95; BMI 35.7
[2017-05-21 19:30] VITALS: BP 134/68; PULSE 52; TEMP 36.7; O2SAT 95
[2017-05-21] MEDS ORDERED: GLUCOSE 10 TABS/TUBE PO PRN (19:30)
[2017-05-21] MEDS ORDERED: DOCUSATE SODIUM 100 MG CAP PO PRN (19:30)
[2017-05-21] MEDS ORDERED: GLUCOSE 40% GEL 15 GM TUBE PO PRN (19:30)
[2017-05-21] MEDS ORDERED: GLUCAGON FOR INJ 1 MG VIAL SQ PRN (19:30)
[2017-05-21] MEDS ORDERED: DEXTROSE 50% 50 ML SYR IV PRN (19:30)
[2017-05-21] MEDS ORDERED: ONDANSETRON INJ 2 MG/ML 2 ML VIAL IV PRN (19:45)
[2017-05-21] MEDS ORDERED: ACETAMINOPHEN 325 MG TAB PO PRN (19:45)
[2017-05-21] MEDS ORDERED: SUMATRIPTAN SUCCINATE 6 MG/0.5 ML VIAL SQ STA (19:53)
[2017-05-21] MEDS: SODIUM CHLORIDE 0.9% 1000ML 1,000 ML IV SCH (20:40)
[2017-05-21] MEDS: GABAPENTIN 400 MG CAP PO SCH (20:41)
[2017-05-21] MEDS: FENOFIBRATE 48 MG TAB PO SCH (20:42)
[2017-05-21] MEDS: BUDESONIDE/FORMOTEROL FUMARATE 160/4.5 60 PUFFS/INHALER INH SCH (20:43)
[2017-05-21] MEDS: INSULIN ASPART 100 UNITS/ML 3 ML PEN SC SCH (21:00)
[2017-05-21] MEDS: TRAZODONE HCL 50 MG TAB PO SCH (21:00)
[2017-05-21] MEDS: QUETIAPINE FUMARATE 100 MG TAB PO SCH (21:00)
[2017-05-21] MEDS: HEPARIN SOD 5000 UNIT/0.5 ML CARP SQ SCH (22:00)
[2017-05-21] MEDS ORDERED: OXYCODONE HCL IR 5 MG TAB (IMMEDIATE RELEASE) PO SCH (23:00)
--- NOTE | 2017-05-21 23:41 | History and Physical ---
History & Physical Date & Time of Service: May 21, 2017 at 19:28 Chief Complaint: Stroke Sx, Headache Primary Care Physician: Thea Cortes M.D. History of Present Illness Source: patient, hospital records This is a 41 year old male with PMH of right MCA stroke in 12/2016, HTN, DM type 2, HL, GERD, hx of CAD, asthma, and other problems listed below who presented to the ED for left sided weakness. Patient reports this morning around 11 am he noticed worsening left arm and leg weakness , left hand numbness, left facial droop, and slurring of the speech. Patient states these symptoms started with his prior stroke in Dec 2016 and have been intermittent from that time. He states currently his deficits are improving. Patient also reports left sided headache for past 3 days which feels like "being hit with a herbie". He denies any falls or head trauma. He reports visual aura preceding the headache and associated photophobia. Pt was taking ibuprofen 800 mg TID for past few days. He was medicated with Benadryl and Compazine in ER with improvement of the SMALL but states it is worsening again. Pt reports nausea and poor PO intake today. He reports decreased urination. He voided once today. Pt denies fever, chills, neck stiffness, URI symptoms, cough, vomiting, diarrhea, darkened urine. He denies personal h/o migraine, but reports family hx of migraine in his mother. Past Medical/Surgical History Medical Problems: (1) Anxiety Status: Chronic (2) Asthma Status: Chronic (3) Bipolar disorder Status: Chronic (4) Chronic pain Status: Chronic (5) DM type 2 (diabetes mellitus, type 2) Status: Chronic (6) Dyslipidemia Status: Chronic (7) GERD (gastroesophageal reflux disease) Status: Chronic (8) History of coronary artery disease Status: Chronic (9) HTN (hypertension) Status: Chronic (10) Ischemic stroke Permanent Comment: with residual left hemiparesis Status: Resolved (11) Obesity Status: Chronic (12) JOSE (obstructive sleep apnea) Status: Chronic Surgical Problems: (1) History of tonsillectomy and adenoidectomy Status: Resolved (2) Hx of reconstruction of anterior cruciate ligament tear Status: Resolved (3) S/P left knee arthroscopy Status: Resolved Social History Problems: (1) Tobacco use Status: Chronic Family History Diabetes mellitus FH: cancer FH: lung disease FH: migraines MOTHER FHx: gallbladder disease FHx: heart disease Hypertension Kidney disease Kidney stones Social History Smoking Status: Never Smoker Smokeless Tobacco Use: Yes Alcohol Use: none Marital Status: Housing status: lives alone Occupational Status: disabled Immunizations History of Influenza Vaccine: Yes Influenza Vaccine Date: Aug 25, 2012 History of Tetanus Vaccine?: Yes Tetanus Immunization Date: Aug 12, 1992 History of Pneumococcal: Yes Pneumococcal Date: Aug 09, 2006 History of Hepatitis B Vaccine: Unknown Multi-Drug Resistant Organisms History of MDRO: No Type of MDRO: MRSA Allergies Coded Allergies: Hydrocodone (Verified Allergy, Unknown, hives, itching, 05/21/17) Tramadol (Unverified Adverse Reaction, Unknown, VOMITING, 05/21/17) Home Medications Scheduled Aspirin (Aspirin Ec), 81 MG PO DAILY Atorvastatin (Lipitor), 20 MG PO DAILY Budesonide/Formoterol Fumarate (Symbicort 160/4.5 Inhaler), 2 PUFFS INH BID Clopidogrel (Plavix), 75 MG PO DAILY Fenofibrate (Tricor), 48 MG PO HS Fluticasone Propionate (Nasal) (Flonase Allergy Relief), 2 SPRAYS CAROLEE DAILY Gabapentin (Neurontin), 400 MG PO TID Hydrochlorothiazide (Hydrochlorothiazide), 25 MG PO DAILY Metformin Hcl (Glucophage), 500 MG PO AMHS Metoprolol Succinate (Metoprolol Succinate ER), 25 MG PO DAILY Montelukast Sodium (Singulair), 10 MG PO DAILY Oxycodone Hcl (Oxycontin), 15 MG PO 5XD Quetiapine Fumarate (Seroquel), 100 MG PO HS Tamsulosin Hcl (Flomax), 0.4 MG PO QAM Trazodone Hcl (Desyrel), 150 MG PO HS Scheduled PRN Docusate Sodium (Stool Softener), 100 MG PO TID PRN for Constipation Review of Systems Ten systems reviewed and negative except as noted in HPI. Physical Exam Vital Signs Date Time Temp Pulse Resp B/P (MAP) Pulse Ox O2 Delivery O2 Flow Rate FiO2 05/21/17 19:11 52 17 123/72 95 Room Air 05/21/17 18:12 65 18 108/74 94 Room Air 05/21/17 16:05 64 05/21/17 15:56 37.3 64 18 148/73 95 Room Air 05/21/17 15:55 96 Room Air General Appearance: WD/WN, no apparent distress, + pertinent finding (drowsy but awakens and answers questsion appropriately ) Head: normocephalic, atraumatic Eyes: normal inspection, PERRL, EOMI ENT: hearing grossly normal, pharynx normal Neck: supple, trachea midline Respiratory/Chest: lungs clear, normal breath sounds, no respiratory distress Cardiovascular: regular rate, rhythm, no murmur Abdomen/GI: normal bowel sounds, non tender, soft Extremities/Musculoskelatal: no calf tenderness, no pedal edema Neurologic/Psych: normal mood/affect, oriented x 3, + facial droop (left lower facial droop attributed to prior CVA), + pertinent finding (drowsy but awakens and answers questions appropriately. left hand subjective decreased sensation. LUE and LLE mild weakness attributed to prior CVA) Skin: normal color, warm/dry Diagnostics Laboratory Results Results Past 24 Hours Test 05/21/17 16:08 05/21/17 16:58 Range/Units Bedside Glucose 92 70-99 mg/dl White Blood Count 7.50 4.8-10.8 K/uL Red Blood Count 4.56 4.7-6.1 M/uL Hemoglobin 13.6 14.0-18.0 g/dL Hematocrit 38.3 42-52 % Mean Corpuscular Volume 84.0 80-100 fL Mean Corpuscular Hemoglobin 29.8 25-34 pg Mean Corpuscular Hemoglobin Concent 35.5 32-36 g/dl Platelet Count 244 130-400 K/uL Mean Platelet Volume 9.2 7.4-10.4 fL Neutrophils (%) (Auto) 75.8 % Lymphocytes (%) (Auto) 16.4 % Monocytes (%) (Auto) 6.0 % Eosinophils (%) (Auto) 1.3 % Basophils (%) (Auto) 0.4 % Neutrophils # (Auto) 5.68 1.4-6.5 K/uL Lymphocytes # (Auto) 1.23 1.2-3.4 K/uL Monocytes # (Auto) 0.45 0.11-0.59 K/uL Eosinophils # (Auto) 0.10 0-0.5 K/uL Basophils # (Auto) 0.03 0-0.2 K/uL RDW Standard Deviation 39.7 36.4-46.3 fL RDW Coefficient of Variation 13.2 11.5-14.5 % Immature Granulocyte % (Auto) 0.1 % Immature Granulocyte # (Auto) 0.01 0.00-0.02 K/uL Prothrombin Time 10.3 9.0-12.0 SECONDS Prothromb Time International Ratio 1.0 0.9-1.1 Activated Partial Thromboplast Time 28.7 21.0-31.0 SECONDS Partial Thromboplastin Ratio 1.1 Sodium Level 138 136-145 mmol/L Potassium Level 3.7 3.5-5.1 mmol/L Chloride Level 103 98-107 mmol/L Carbon Dioxide Level 24 21-32 mmol/L Anion Gap 11.0 3-11 mmol/L Blood Urea Nitrogen 28 7-18 mg/dl Creatinine 3.40 0.60-1.40 mg/dl Est Creatinine Clear Calc Drug Dose 34.6 ml/min Estimated GFR () 24.4 Estimated GFR (Non- 21.0 BUN/Creatinine Ratio 8.2 10-20 Random Glucose 92 70-99 mg/dl Calcium Level 9.1 8.5-10.1 mg/dl Total Bilirubin 0.4 0.2-1 mg/dl Aspartate Amino Transf (AST/SGOT) 9 15-37 U/L Alanine Aminotransferase (ALT/SGPT) 14 12-78 U/L Alkaline Phosphatase 71 45-117 U/L Total Protein 7.3 6.4-8.2 gm/dl Albumin 4.0 3.4-5.0 gm/dl Globulin 3.3 2.5-4.0 gm/dl Albumin/Globulin Ratio 1.2 0.9-[address] HEAD WITHOUT CONTRAST (CT)- per radiology IMPRESSION: Old right MCA territory infarct. No acute intracranial findings. CHEST ONE VIEW PORTABLE- per radiology IMPRESSION: No active disease in the chest. MRI OF THE BRAIN WITHOUT CONTRAST- per radiology IMPRESSION: 1. No evidence of acute or subacute infarction 2. Old infarct in the distribution of the right middle cerebral artery 3. No evidence of intracranial mass on this noncontrast study EKG sinus bradycardia 59 bpm, no acute ischemic findings Impression Assessment and Plan YOLA Creat is 3.4- baseline approximately 1.1 Likely secondary to volume depletion from poor PO intake and NSAID use Check UA, urine spot creatinine and sodium Hold HCTZ IV fluid hydration Avoid nephrotoxins including NSAIDs Monitor renal function HEADACHE Possibly due to migraine Treated with Compazine and Benadryl in ER Will try dose of IM sumatriptan HX ISCHEMIC CVA WITH RESIDUAL LEFT HEMIPARESIS Presents with chronic intermittent deficits from prior CVA in 12/2016 CT head- no acute findings, old R MCA infarct; Brain MRI- negative for acute CVA , prior R MCA stroke noted Continue aspirin, Plavix, statin PT and OT evaluations DM TYPE 2 Hold oral agent Novolog sliding scale HYPERTENSION BP is stable Continue metoprolol Hold HCTZ for YOLA HX NONOBSTRUCTIVE CAD Stable, no anginal symptoms Continue aspirin, plavix, statin, beta kirk ASTHMA Not in acute exacerbation Continue home inhalers CHRONIC PAIN Continue chronic opioids [place] Drug Monitoring database queried- no issues identified DVT PROPHYLAXIS Heparin SQ FULL CODE DISPOSITION Admit to med/ surg Follows with Dr. Cortes in [place] Patient seen in collaboration with Dr. Asencio. Please see his addendum. Agree with above h and [id number] with hx of CVA presents with severe headache and feeling of dysphagia. Was nauseous. Denies chest pain or sob.Headache is better now. nausea and feeling of dysphagia resolved. Afebrile.Currently resting comfortably. 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 Y/N: Yes Risk Level: Moderate
[2017-05-22] VITALS: O2SAT 95
[2017-05-22 00:02] VITALS: BP 114/79; PULSE 64; TEMP 36.9; O2SAT 96
[2017-05-22] MEDS: QUETIAPINE FUMARATE 100 MG TAB PO SCH (01:07)
[2017-05-22] MEDS: TRAZODONE HCL 50 MG TAB PO SCH (01:07)
[2017-05-22] MEDS: OXYCODONE HCL IR 5 MG TAB (IMMEDIATE RELEASE) PO PRN ×5 (01:08→21:42)
[2017-05-22 01:33] LABS: URINE APPEARANCE CLEAR (CLEAR); URINE BILIRUBIN NEG (NEG); URINE COLOR YELLOW; URINE NITRITE NEG (NEG); URINE SPECIFIC GRAVITY 1.015 (1.000-1.030); UROBILINOGEN NEG (NEG); ZZUR CULT IF INDIC CLEAN CATCH NO
[2017-05-22 01:35] LABS: MANUAL MICROSCOPIC REQUIRED? NO; REVIEW REQ? NO
[2017-05-22] MEDS: SODIUM CHLORIDE 0.9% 1000ML 1,000 ML IV SCH ×3 (05:55→20:11)
[2017-05-22] MEDS: HEPARIN SOD 5000 UNIT/0.5 ML CARP SQ SCH ×3 (05:59→21:12)
[2017-05-22 07:37] LABS: BUN/CREATININE RATIO 10.4 (10-20); CALCIUM 8.3 mg/dl (8.5-10.1); CREATININE 2.8 mg/dl (0.60-1.40); POTASSIUM 3.7 mmol/L (3.5-5.1)
[2017-05-22 07:50] VITALS: BP 122/80; PULSE 75
[2017-05-22 07:51] VITALS: BP 96/68; PULSE 82; TEMP 36.9; O2SAT 96
[2017-05-22] MEDS: MONTELUKAST SOD 10 MG TAB PO SCH (07:53)
[2017-05-22] MEDS: GABAPENTIN 400 MG CAP PO SCH ×3 (07:53→21:09)
[2017-05-22] MEDS: ASPIRIN 81 MG ECTAB PO SCH (07:54)
[2017-05-22] MEDS: ATORVASTATIN 20 MG TAB PO SCH (07:54)
[2017-05-22] MEDS: TAMSULOSIN HCL 0.4 MG CAP PO SCH (07:54)
[2017-05-22] MEDS: CLOPIDOGREL BISULFATE 75 MG TAB PO SCH (07:54)
[2017-05-22] MEDS: METOPROLOL SUCC 25MG EXT REL TAB PO SCH (07:54)
[2017-05-22] MEDS: FLUTICASONE PROPIONATE NA SPR 16 GM BTL NAE SCH (07:55)
[2017-05-22] MEDS: BUDESONIDE/FORMOTEROL FUMARATE 160/4.5 60 PUFFS/INHALER INH SCH ×2 (07:55→21:07)
[2017-05-22] MEDS: INSULIN ASPART 100 UNITS/ML 3 ML PEN SC SCH ×4 (08:04→21:00)
--- NOTE | 2017-05-22 13:07 | Progress Note ---
Internal Med Progress Note Date of Service: May 22, 2017. Provider Documentation: SUBJECTIVE: Seen and examined at bedside. States feeling better and weakness improved. Also headache is much Improved. Denies vision changes OBJECTIVE: Vital Signs-as noted below Physical Exam: General Appearance:Moderately built and nourished, no apparent distress Head: normocephalic, Atraumatic Eyes: normal inspection, EOMI, PERRL Neck: supple, Trachea midline Respiratory/Chest: Normal breath sounds, CTA Cardiovascular: S1, S2, No murmur Abdomen/GI:Soft, Non tender, Bowel sounds present Extremities/Musculoskelatal:normal inspection, no edema Neurologic/Psych:Mild LUE and LLE weakness Skin: normal color, warm Lab data as noted below. ASSESSMENT & PLAN: YOLA: Likely prerenal and NSAIDs use Baseline Cr:1.1 Presented Cr: 3.4 >>>2.8 Renal Ultrasound:Normal Hold HCTZ Continue IV fluid Avoid nephrotoxins, NSAIDs Monitor renal function HEADACHE Likely migraine MRI head:Old infarct in the distribution of the right middle cerebral artery Improved HX ISCHEMIC CVA WITH RESIDUAL LEFT HEMIPARESIS Presents with chronic intermittent deficits from prior CVA in 12/2016 MRI Brain: No acute process Continue aspirin, Plavix, statin PT/OT DM II Hold oral agent ISS, accu checks HYPERTENSION stable Continue metoprolol Hold HCTZ for YOLA HX NONOBSTRUCTIVE CAD Stable, no anginal symptoms Continue aspirin, plavix, statin, beta kirk ASTHMA Not in acute exacerbation Continue home inhalers CHRONIC PAIN Continue chronic opioids [place] Drug Monitoring database queried- no issues identified DVT PX Heparin SQ Code Status FULL CODE DISPOSITION Follows with Dr. Cortes in [place] Vital Signs: Date Time Temp Pulse Resp B/P (MAP) Pulse Ox O2 Delivery O2 Flow Rate FiO2 05/22/17 16:00 Room Air 05/22/17 08:00 Room Air 05/22/17 07:51 36.9 82 16 96/68 (77) 96 Room Air 05/22/17 07:50 75 122/80 (94) 05/22/17 00:02 36.9 64 20 114/79 (91) 96 Room Air 05/22/17 00:00 95 Room Air 05/21/17 19:30 36.7 52 18 134/68 (90) 95 Room Air 05/21/17 19:23 37.3 52 17 123/72 95 Room Air 05/21/17 19:11 52 17 123/72 95 Room Air 05/21/17 18:12 65 18 108/74 94 Room Air Lab Results: Results Past 24 Hours Test 05/21/17 21:00 05/22/17 01:20 05/22/17 06:52 05/22/17 07:44 Range/Units Bedside Glucose 101 108 70-99 mg/dl Urine Color YELLOW Urine Appearance CLEAR CLEAR Urine pH 5.0 4.5-7.5 Urine Specific [place] 1.015 1.000-1.030 Urine Protein NEG NEG Urine Glucose (UA) NEG NEG Urine Ketones NEG NEG Urine Occult Blood NEG NEG Urine Nitrite NEG NEG Urine Bilirubin NEG NEG Urine Urobilinogen NEG NEG Urine Leukocyte Esterase NEG NEG Urine Random Creatinine 84.0 mg/dl Urine Random Sodium 70 mEq/L Sodium Level 140 136-145 mmol/L Potassium Level 3.7 3.5-5.1 mmol/L Chloride Level 108 98-107 mmol/L Carbon Dioxide Level 25 21-32 mmol/L Anion Gap 7.0 3-11 mmol/L Blood Urea Nitrogen 29 7-18 mg/dl Creatinine 2.80 0.60-1.40 mg/dl Est Creatinine Clear Calc Drug Dose 42.0 ml/min Estimated GFR () 30.8 Estimated GFR (Non- 26.6 BUN/Creatinine Ratio 10.4 10-20 Random Glucose 87 70-99 mg/dl Calcium Level 8.3 8.5-10.1 mg/dl Test 05/22/17 11:21 05/22/17 17:12 Range/Units Bedside Glucose 109 114 70-99 mg/dl
--- NOTE | 2017-05-22 15:40 | DIAGNOSTIC IMAGING REPORT ---
EXAMINATION: RENAL ULTRASOUND CLINICAL HISTORY: Acute renal insufficiency COMPARISON STUDY: 01/11/2017 FINDINGS: The right kidney measures 11.8 cm. The left kidney measures 12.1 cm. There is no evidence of hydronephrosis. There are no renal masses. No bladder abnormalities are visualized. Bilateral ureteral jets were visualized. IMPRESSION : Normal renal ultrasound. Electronically signed by: Crow Frances M.D. 05/22/2017 3:38 PM Dictated Date/Time: 05/22/2017 3:37 PM
[2017-05-22] MEDS ORDERED: SUMATRIPTAN SUCCINATE 25 MG TAB PO ONE (17:45)
[2017-05-22 18:39] VITALS: BP 125/72; PULSE 69; TEMP 36.8; O2SAT 97
[2017-05-22] MEDS: FENOFIBRATE 48 MG TAB PO SCH (21:09)
[2017-05-23] MEDS: QUETIAPINE FUMARATE 100 MG TAB PO SCH (00:01)
[2017-05-23] MEDS: TRAZODONE HCL 50 MG TAB PO SCH (00:01)
[2017-05-23 00:06] VITALS: BP 161/98; PULSE 55; TEMP 36.8; O2SAT 98
[2017-05-23] MEDS: SODIUM CHLORIDE 0.9% 1000ML 1,000 ML IV SCH ×2 (03:27→11:13)
[2017-05-23] MEDS: HEPARIN SOD 5000 UNIT/0.5 ML CARP SQ SCH ×2 (06:36→13:29)
[2017-05-23 07:19] LABS: BUN/CREATININE RATIO 14.5 (10-20); CALCIUM 8.3 mg/dl (8.5-10.1); CREATININE 1.2 mg/dl (0.60-1.40)
[2017-05-23 07:51] VITALS: BP 127/79; PULSE 61; TEMP 36.8; O2SAT 95
[2017-05-23 07:58] VITALS: BP 144/88; PULSE 71
[2017-05-23] MEDS: BUDESONIDE/FORMOTEROL FUMARATE 160/4.5 60 PUFFS/INHALER INH SCH (08:00)
[2017-05-23] MEDS: GABAPENTIN 400 MG CAP PO SCH ×2 (08:01→12:54)
[2017-05-23] MEDS: ATORVASTATIN 20 MG TAB PO SCH (08:01)
[2017-05-23] MEDS: ASPIRIN 81 MG ECTAB PO SCH (08:01)
[2017-05-23] MEDS: FLUTICASONE PROPIONATE NA SPR 16 GM BTL NAE SCH (08:01)
[2017-05-23] MEDS: METOPROLOL SUCC 25MG EXT REL TAB PO SCH (08:01)
[2017-05-23] MEDS: MONTELUKAST SOD 10 MG TAB PO SCH (08:01)
[2017-05-23] MEDS: CLOPIDOGREL BISULFATE 75 MG TAB PO SCH (08:01)
[2017-05-23] MEDS: TAMSULOSIN HCL 0.4 MG CAP PO SCH (08:02)
[2017-05-23] MEDS: OXYCODONE HCL IR 5 MG TAB (IMMEDIATE RELEASE) PO PRN ×2 (08:07→12:54)
[2017-05-23] MEDS: INSULIN ASPART 100 UNITS/ML 3 ML PEN SC SCH ×2 (08:16→12:12)
[2017-05-23 13:00] VITALS: BP 144/88; PULSE 71; TEMP 36.8; O2SAT 95
--- NOTE | 2017-05-23 13:01 | Progress Note ---
Internal Med Progress Note Date of Service: May 23, 2017. Provider Documentation: SUBJECTIVE: Seen and examined at bedside. States feeling better and weakness improved. Also headache is much Improved. Denies vision changes OBJECTIVE: Vital Signs-as noted below Physical Exam: General Appearance:Moderately built and nourished, no apparent distress Head: normocephalic, Atraumatic Eyes: normal inspection, EOMI, PERRL Neck: supple, Trachea midline Respiratory/Chest: Normal breath sounds, CTA Cardiovascular: S1, S2, No murmur Abdomen/GI:Soft, Non tender, Bowel sounds present Extremities/Musculoskelatal:normal inspection, no edema Neurologic/Psych:Mild LUE and LLE weakness Skin: normal color, warm Lab data as noted below. ASSESSMENT & PLAN: YOLA: Likely prerenal and NSAIDs use Baseline Cr:1.1 Presented Cr: 3.4 >>>2.8 Renal Ultrasound:Normal Hold HCTZ Continue IV fluid Avoid nephrotoxins, NSAIDs Monitor renal function HEADACHE Likely migraine MRI head:Old infarct in the distribution of the right middle cerebral artery Improved HX ISCHEMIC CVA WITH RESIDUAL LEFT HEMIPARESIS Presents with chronic intermittent deficits from prior CVA in 12/2016 MRI Brain: No acute process Continue aspirin, Plavix, statin PT/OT DM II Hold oral agent ISS, accu checks HYPERTENSION stable Continue metoprolol Hold HCTZ for YOLA HX NONOBSTRUCTIVE CAD Stable, no anginal symptoms Continue aspirin, plavix, statin, beta kirk ASTHMA Not in acute exacerbation Continue home inhalers CHRONIC PAIN Continue chronic opioids [place] Drug Monitoring database queried- no issues identified DVT PX Heparin SQ Code Status FULL CODE DISPOSITION Follows with Dr. Cortes in [place] Vital Signs: Date Time Temp Pulse Resp B/P (MAP) Pulse Ox O2 Delivery O2 Flow Rate FiO2 05/23/17 13:00 36.8 71 16 95 Room Air 05/23/17 08:00 Room Air 05/23/17 07:58 71 144/88 (106) 05/23/17 07:51 36.8 61 16 127/79 (95) 95 Room Air 05/23/17 00:06 36.8 55 20 161/98 (119) 98 Room Air 05/23/17 00:00 Room Air 05/22/17 20:00 Room Air 05/22/17 18:39 36.8 69 18 125/72 (89) 97 Room Air 05/22/17 16:00 Room Air Lab Results: Results Past 24 Hours Test 05/22/17 17:12 05/22/17 21:05 05/23/17 06:19 05/23/17 07:02 Range/Units Bedside Glucose 114 119 91 70-99 mg/dl Sodium Level 141 136-145 mmol/L Potassium Level 4.0 3.5-5.1 mmol/L Chloride Level 108 98-107 mmol/L Carbon Dioxide Level 27 21-32 mmol/L Anion Gap 6.0 3-11 mmol/L Blood Urea Nitrogen 17 7-18 mg/dl Creatinine 1.20 0.60-1.40 mg/dl Est Creatinine Clear Calc Drug Dose 98.0 ml/min Estimated GFR () 85.9 Estimated GFR (Non- 74.1 BUN/Creatinine Ratio 14.5 10-20 Random Glucose 90 70-99 mg/dl Calcium Level 8.3 8.5-10.1 mg/dl Test 05/23/17 11:10 Range/Units Bedside Glucose 134 70-99 mg/dl
--- NOTE | 2017-05-23 13:17 | Progress Note ---
Internal Med Progress Note Date of Service: May 23, 2017. Provider Documentation: SUBJECTIVE: Seen and examined at bedside. Feels better today. No new complaints. Family at bedside. OBJECTIVE: Vital Signs-as noted below Physical Exam: General Appearance:Moderately built and nourished, no apparent distress Head: normocephalic, Atraumatic Eyes: normal inspection, EOMI, PERRL Neck: supple, Trachea midline Respiratory/Chest: Normal breath sounds, CTA Cardiovascular: S1, S2, No murmur Abdomen/GI:Soft, Non tender, Bowel sounds present Extremities/Musculoskelatal:normal inspection, no edema Neurologic/Psych:Mild LUE and LLE weakness Skin: normal color, warm Lab data as noted below. ASSESSMENT & PLAN: YOLA: Likely prerenal and NSAIDs use Baseline Cr:1.1 Presented Cr: 3.4 >>>2.8>>>1.2 Renal Ultrasound:Normal S/P IV fluids Hold HCTZ Avoid nephrotoxins, NSAIDs Monitor renal function HEADACHE Likely migraine MRI head:Old infarct in the distribution of the right middle cerebral artery Improved HX ISCHEMIC CVA WITH RESIDUAL LEFT HEMIPARESIS Presents with chronic intermittent deficits from prior CVA in 12/2016 MRI Brain: No acute process Continue aspirin, Plavix, statin PT/OT DM II Hold oral agent ISS, accu checks HYPERTENSION stable Continue metoprolol Hold HCTZ for YOLA HX NONOBSTRUCTIVE CAD Stable, no anginal symptoms Continue aspirin, plavix, statin, beta kirk ASTHMA Not in acute exacerbation Continue home inhalers CHRONIC PAIN Continue chronic opioids [place] Drug Monitoring database quer[place]- no issues identified DVT PX Heparin SQ Code Status FULL CODE DISPOSITION Plan to discharge home today Patient refuses to get Acute Rehab therapy and states he has Outpatient PT setup already and prefers outpatient therapy Follows with Dr. Cortes in [place] in 1 week Follow up with your Neurologist in 2 weeks as advised Seek immediate medical attention if your symptoms reoccur or worsen Vital Signs: Date Time Temp Pulse Resp B/P (MAP) Pulse Ox O2 Delivery O2 Flow Rate FiO2 05/23/17 08:00 Room Air 05/23/17 07:58 71 144/88 (106) 05/23/17 07:51 36.8 61 16 127/79 (95) 95 Room Air 05/23/17 00:06 36.8 55 20 161/98 (119) 98 Room Air 05/23/17 00:00 Room Air 05/22/17 20:00 Room Air 05/22/17 18:39 36.8 69 18 125/72 (89) 97 Room Air 05/22/17 16:00 Room Air Lab Results: Results Past 24 Hours Test 05/22/17 17:12 05/22/17 21:05 05/23/17 06:19 05/23/17 07:02 Range/Units Bedside Glucose 114 119 91 70-99 mg/dl Sodium Level 141 136-145 mmol/L Potassium Level 4.0 3.5-5.1 mmol/L Chloride Level 108 98-107 mmol/L Carbon Dioxide Level 27 21-32 mmol/L Anion Gap 6.0 3-11 mmol/L Blood Urea Nitrogen 17 7-18 mg/dl Creatinine 1.20 0.60-1.40 mg/dl Est Creatinine Clear Calc Drug Dose 98.0 ml/min Estimated GFR () 85.9 Estimated GFR (Non- 74.1 BUN/Creatinine Ratio 14.5 10-20 Random Glucose 90 70-99 mg/dl Calcium Level 8.3 8.5-10.1 mg/dl Test 05/23/17 11:10 Range/Units Bedside Glucose 134 70-99 mg/dl
[2017-05-23] MEDS ORDERED: ATOR-22 PO (13:22)
--- NOTE | 2017-05-23 13:24 | Discharge Summary ---
Discharge Summary Date of Service May 23, 2017. Discharge Summary Admission Date: May 21, 2017 at 18:37 Discharge Date: May 23, 2017 Discharge Disposition: Home Principal Diagnosis: Acute renal failure, Migraine Procedures: MRI Brain: 1. No evidence of acute or subacute infarction 2. Old infarct in the distribution of the right middle cerebral artery 3. No evidence of intracranial mass on this noncontrast study Renal USD: Normal renal ultrasound. CXR: No active disease in the chest. CT Head: Old right MCA territory infarct. No acute intracranial findings. Consultations: None Pending Studies/Follow-Up: Follows with Dr. Cortes in [place] in 1 week Follow up with your Neurologist in 2 weeks as advised Seek immediate medical attention if your symptoms reoccur or worsen Medication Reconciliation Changed Medications: Atorvastatin (Lipitor) 20 Mg Tab 40 MG PO DAILY for 30 Days, #60 TAB 1 Refill (Changed from: 20 MG; Refills: ) Continued Medications: Aspirin (Aspirin Ec) 81 Mg Tab 81 MG PO DAILY Budesonide/Formoterol Fumarate (Symbicort 160/4.5 Inhaler) 120 Puffs/ Aero 2 PUFFS INH BID Clopidogrel (Plavix) 75 Mg Tab 75 MG PO DAILY, TAB Docusate Sodium (Stool Softener) 100 Mg Tab 100 MG PO TID PRN for Constipation Fenofibrate (Tricor) 48 Mg Tab 48 MG PO HS, TAB Fluticasone Propionate (Nasal) (Flonase Allergy Relief) 50 Mcg/Act Spr 2 SPRAYS CAROLEE DAILY Gabapentin (Neurontin) 400 Mg Cap 400 MG PO TID, CAP Hydrochlorothiazide (Hydrochlorothiazide) 25 Mg Tab 25 MG PO DAILY Metformin Hcl (Glucophage) 500 Mg Tab 500 MG PO AMHS for 90 Days, TAB 1 Refill Metoprolol Succinate (Metoprolol Succinate ER) 25 Mg Tabcr 25 MG PO DAILY Montelukast Sodium (Singulair) 10 Mg Tab 10 MG PO DAILY Oxycodone Hcl (Oxycontin) 15 Mg Tab 15 MG PO 5XD, TAB Quetiapine Fumarate (Seroquel) 100 Mg Tab 100 MG PO HS, TAB Tamsulosin Hcl (Flomax) 0.4 Mg Cap 0.4 MG PO QAM, CAP Trazodone Hcl (Desyrel) 150 Mg Tab 150 MG PO HS, TAB Admission Information HPI (per Admitting provider): This is a 41 year old male with PMH of right MCA stroke in 12/2016, HTN, DM type 2, HL, GERD, hx of CAD, asthma, and other problems listed below who presented to the ED for left sided weakness. Patient reports this morning around 11 am he noticed worsening left arm and leg weakness , left hand numbness, left facial droop, and slurring of the speech. Patient states these symptoms started with his prior stroke in Dec 2016 and have been intermittent from that time. He states currently his deficits are improving. Patient also reports left sided headache for past 3 days which feels like "being hit with a herbie". He denies any falls or head trauma. He reports visual aura preceding the headache and associated photophobia. Pt was taking ibuprofen 800 mg TID for past few days. He was medicated with Benadryl and Compazine in ER with improvement of the SMALL but states it is worsening again. Pt reports nausea and poor PO intake today. He reports decreased urination. He voided once today. Pt denies fever, chills, neck stiffness, URI symptoms, cough, vomiting, diarrhea, darkened urine. He denies personal h/o migraine, but reports family hx of migraine in his mother. Physical Exam (per Admitting): General Appearance: WD/WN, no apparent distress, + pertinent finding ( drowsy but awakens and answers questsion appropriately ) Head: normocephalic, atraumatic Eyes: normal inspection, PERRL, EOMI ENT: hearing grossly normal, pharynx normal Neck: supple, trachea midline Respiratory/Chest: lungs clear, normal breath sounds, no respiratory distress Cardiovascular: regular rate, rhythm, no murmur Abdomen/GI: normal bowel sounds, non tender, soft Extremities/Musculoskelatal: no calf tenderness, no pedal edema Neurologic/Psych: normal mood/affect, oriented x 3, + facial droop (left lower facial droop attributed to prior CVA), + pertinent finding (drowsy but awakens and answers questions appropriately. left hand subjective decreased sensation. LUE and LLE mild weakness attributed to prior CVA) Skin: normal color, warm/dry Hospital Course YOLA: Likely prerenal and NSAIDs use Baseline Cr:1.1 Presented Cr: 3.4 >>>2.8>>>1.2 Renal Ultrasound:Normal S/P IV fluids Resume HCTZ upon DC Avoid nephrotoxins, NSAIDs Monitor renal function HEADACHE Likely migraine MRI head:Old infarct in the distribution of the right middle cerebral artery Improved HX ISCHEMIC CVA WITH RESIDUAL LEFT HEMIPARESIS Presents with chronic intermittent deficits from prior CVA in 12/2016 MRI Brain: No acute process Continue aspirin, Plavix, statin PT/OT Will increase Lipitor to 40mg DM II Hold oral agent ISS, accu checks HYPERTENSION stable Continue metoprolol Hold HCTZ for YOLA HX NONOBSTRUCTIVE CAD Stable, no anginal symptoms Continue aspirin, plavix, statin, beta kirk ASTHMA Not in acute exacerbation Continue home inhalers CHRONIC PAIN Continue chronic opioids [place] Drug Monitoring database queried- no issues identified DVT PX Heparin SQ Code Status FULL CODE DISPOSITION Plan to discharge home today Patient refuses to get Acute Rehab therapy and states he has Outpatient PT setup already and prefers outpatient therapy Follows with Dr. Sebastian Guzmán in 1 week Follow up with your Neurologist in 2 weeks as advised Seek immediate medical attention if your symptoms reoccur or worsen Total time spent on discharge = 38 minutes This includes examination of the patient, discharge planning, medication reconciliation, and communication with other providers. Discharge Instructions Discharge Instructions Date of Service May 23, 2017. Admission Reason for Admission: Arf (Acute Renal Failure) Discharge Discharge Diagnosis / Problem: Acute renal failure Discharge Goals Goal(s): Decrease discomfort, Improve function Activity Recommendations Activity Limitations: resume your previous activity Exercise/Sports Limitations: as tolerated . Instructions / Follow-Up Instructions / Follow-Up Follows with Dr. Sebastian Guzmán in 1 week Follow up with your Neurologist in 2 weeks as advised Seek immediate medical attention if your symptoms reoccur or worsen Current Hospital Diet Patient's current hospital diet: Diabetes Type 2 Diet, AHA Diet (Heart Healthy) Discharge Diet Recommended Diet: AHA Diet (Heart Healthy), Diabetes Type 2 Diet Pending Studies Studies pending at discharge: no Medical Emergencies . Who to Call and When: Medical Emergencies: If at any time you feel your situation is an emergency, please call 911 immediately. . Non-Emergent Contact Non-Emergency issues call your: Primary Care Provider, Neurologist Call Non-Emergent contact if: you have a fever, your pain is worsening, your pain is unusual for you, you have any medication questions If your weakness reoccurs or worsens . . "Provider Documentation" section prepared by Song Patel. . VTE Core Measure Inpt VTE Proph given/why not?: Unfractionated heparin SQ
[2017-06-25] MEDS ORDERED: FLUT0.15 NAE (03:53)
[2017-06-25] MEDS ORDERED: GABA1CAP5 PO (15:49)
[2017-06-25] MEDS ORDERED: CLOP1TAB15 PO (15:49)
[2017-06-25] MEDS ORDERED: FENO48TA9 PO (15:49)
[2017-06-25] MEDS ORDERED: METF500T PO (15:57)
[2017-06-25] MEDS ORDERED: MONT1TAB3 PO (16:15)
[2017-06-25] MEDS ORDERED: QUET1TAB34 PO (18:50)
[2017-07-26] MEDS ORDERED: ASPI81TA28 PO (03:53)
== END 2017-05-23 14:48 | disposition home or self-care (01) | DRG 683 ==
LOC: EDBD 15:50 → C.EDA 15:54 → C.MS2W 18:37 → ENRESERV 19:03
PROVIDERS: ADMIT Internal Medicine; ATTEND Internal Medicine
DX: N17.9 Acute kidney failure, unspecified (principal); I69.952 Hemiplegia and hemiparesis following unspecified cerebrovascular disease affecting left dominant side; G43.909 Migraine, unspecified, not intractable, without status migrainosus; R13.10 Dysphagia, unspecified; I10 Essential (primary) hypertension; E78.5 Hyperlipidemia, unspecified; I25.10 Atherosclerotic heart disease of native coronary artery without angina pectoris; J45.909 Unspecified asthma, uncomplicated; F41.9 Anxiety disorder, unspecified; F31.9 Bipolar disorder, unspecified; G89.29 Other chronic pain; E11.9 Type 2 diabetes mellitus without complications; K21.9 Gastro-esophageal reflux disease without esophagitis; E66.9 Obesity, unspecified; G47.33 Obstructive sleep apnea (adult) (pediatric); R29.810 Facial weakness; R47.81 Slurred speech; Z79.82 Long term (current) use of aspirin; Z79.899 Other long term (current) drug therapy; Z88.5 Allergy status to narcotic agent; Z88.6 Allergy status to analgesic agent; Z79.02 Long term (current) use of antithrombotics/antiplatelets; Z79.84 Long term (current) use of oral hypoglycemic drugs; Z83.3 Family history of diabetes mellitus; Z80.9 Family history of malignant neoplasm, unspecified; Z83.6 Family history of other diseases of the respiratory system; Z84.89 Family history of other specified conditions; Z83.79 Family history of other diseases of the digestive system; Z84.1 Family history of disorders of kidney and ureter; Z82.49 Family history of ischemic heart disease and other diseases of the circulatory system; Z86.14 Personal history of Methicillin resistant Staphylococcus aureus infection; Z68.35 Body mass index [BMI] 35.0-35.9, adult

== ENCOUNTER 2017-06-25 22:22 | Emergency (ER) | payer OTHER ==
[~2017-06-25] VITALS: Ht 175.3 cm; Wt 72.6 kg
[~2017-06-25 22:22] MED LIST changes: +CLOP1TAB15 PO; +FENO48TA9 PO; +FLUT0.15 NAE; +GABA1CAP5 PO; +METF500T PO; +MONT1TAB3 PO; -NYSS/ PO; -PANT40TA PO; +QUET1TAB34 PO
[2017-06-25 22:33] VITALS: Ht 175.3 cm; Wt 72.6 kg
[2017-06-25] MEDS ORDERED: TRAZ1TAB52 PO (22:34)
[2017-06-25] MEDS ORDERED: OXYC15TA89 PO (22:35)
[2017-06-25] MEDS ORDERED: DiphenhydrAMINE HCL 50 MG/ML VIAL IV STA ×2 (22:41→23:36)
[2017-06-25] MEDS ORDERED: SODIUM CHLORIDE 0.9% 1000ML 1,000 ML IV SCH (22:41)
[2017-06-25] MEDS ORDERED: LABETALOL HCL IV 5 MG/ML 20ML IV STA (22:41)
[2017-06-25] MEDS ORDERED: METOCLOPRAMIDE HCL INJ 5 MG/ML 2 ML VIAL IV STA (22:41)
[2017-06-25 23:01] VITALS: O2SAT 97
[2017-06-25 23:14] LABS: BASO % 0.4 %; BASO ABS # 0.03 K/uL (0-0.2); COMPLETE YES; EOS % 1.3 %; HEMATOCRIT 36.6 % (42-52); IG% 0.4 %; LYMPH % 20.3 %; LYMPH ABS # 1.46 K/uL (1.2-3.4); MEAN CELL VOLUME 86.9 fL (80-100); MEAN CORPUSCULAR HEMOGLOBIN 29.5 pg (25-34); MEAN CORPUSCULAR HGB CONC 33.9 g/dl (32-36); MEAN PLATELET VOLUME 9.2 fL (7.4-10.4); MONO % 5.3 %; NEUT % 72.3 %; PLATELET COUNT 311 K/uL (130-400); RED BLOOD COUNT 4.21 M/uL (4.7-6.1)
[2017-06-25] MEDS ORDERED: CYM60 PO (23:14)
[2017-06-25] MEDS ORDERED: NRN800 PO (23:14)
[2017-06-25] MEDS ORDERED: TIZA1CAP3 PO (23:14)
[2017-06-25 23:23] VITALS: TEMP 36.7
[2017-06-25 23:26] LABS: INR 0.9 (0.9-1.1); PARTIAL THROMBOPLASTIN RATIO 1.1
[2017-06-25 23:33] LABS: ALT/SGPT 18 U/L (12-78); AST/SGOT 6 U/L (15-37); BLOOD UREA NITROGEN 13 mg/dl (7-18); BUN/CREATININE RATIO 11.8 (10-20); CALCIUM 8.7 mg/dl (8.5-10.1); CARBON DIOXIDE 24 mmol/L (21-32); CHLORIDE 109 mmol/L (98-107); GLUCOSE 148 mg/dl (70-99); POTASSIUM 3.8 mmol/L (3.5-5.1); SODIUM 140 mmol/L (136-145)
[2017-06-25] MEDS ORDERED: PROCHLORPERAZINE 5 MG/ML 2 ML VIAL IV STA (23:36)
[2017-06-25 23:38] LABS: ALKALINE PHOSPHATASE 83 U/L (45-117); CKMB/CK RATIO 0.4 (0-3.0)
[2017-06-26] MEDS ORDERED: OPTIRAY 320 IV PRN
--- NOTE | 2017-06-26 00:01 | EMERGENCY ROOM VISIT NOTE ---
ED Visit Note First contact with patient: 22:30 I have seen and examined this patient with Nydia Garcia and generally agree with the treatment plan as discussed. Problem List Medical Problems: (1) Anxiety Status: Chronic (2) Asthma Status: Chronic (3) Bipolar disorder Status: Chronic (4) Chronic pain Status: Chronic (5) DM type 2 (diabetes mellitus, type 2) Status: Chronic (6) Dyslipidemia Status: Chronic (7) GERD (gastroesophageal reflux disease) Status: Chronic (8) History of coronary artery disease Status: Chronic (9) HTN (hypertension) Status: Chronic (10) Ischemic stroke Permanent Comment: with residual left hemiparesis Status: Resolved (11) Obesity Status: Chronic (12) JOSE (obstructive sleep apnea) Status: Chronic Surgical Problems: (1) History of tonsillectomy and adenoidectomy Status: Resolved (2) Hx of reconstruction of anterior cruciate ligament tear Status: Resolved (3) S/P left knee arthroscopy Status: Resolved Social History Problems: (1) Tobacco use Status: Chronic Current/Historical Medications Scheduled Aspirin (Aspirin Ec), 81 MG PO DAILY Budesonide/Formoterol Fumarate (Symbicort 160/4.5 Inhaler), 2 PUFFS INH BID Clopidogrel (Plavix), 75 MG PO DAILY Duloxetine HCl (Duloxetine HCl), 60 MG PO DAILY Fenofibrate (Tricor), 48 MG PO HS Fluticasone Propionate (Nasal) (Flonase Allergy Relief), 2 SPRAYS CAROLEE DAILY Gabapentin (Neurontin), 400 MG PO TID Gabapentin (Gabapentin), 800 MG PO TID Metformin Hcl (Glucophage), 500 MG PO AMHS Metoprolol Succinate (Metoprolol Succinate ER), 50 MG PO DAILY Montelukast Sodium (Singulair), 10 MG PO DAILY Oxycodone Hcl (Oxycontin), 15 MG PO 5XD Quetiapine Fumarate (Seroquel), 150 MG PO HS Tizanidine Hcl (Tizanidine Hcl), 6 MG PO TID Trazodone Hcl (Desyrel), 150 MG PO HS Scheduled PRN Docusate Sodium (Stool Softener), 100 MG PO TID PRN for Constipation Tamsulosin Hcl (Flomax), 0.4 MG PO QAM PRN for Allergies Coded Allergies: Hydrocodone (Verified Allergy, Unknown, hives, itching, 05/21/17) Tramadol (Unverified Adverse Reaction, Unknown, VOMITING, 05/21/17) Vital Signs Date Time Temp Pulse Resp B/P (MAP) Pulse Ox O2 Delivery O2 Flow Rate FiO2 06/25/17 23:23 36.7 63 18 157/98 97 Room Air 06/25/17 23:05 69 18 170/107 96 Room Air 06/25/17 23:01 97 Room Air 06/25/17 22:36 70 06/25/17 22:33 64 28 202/130 99 Room Air Laboratory Results 06/25/17 22:00 Red Blood Count 4.21, Mean Corpuscular Volume 86.9, Mean Corpuscular Hemoglobin 29.5, Mean Corpuscular Hemoglobin Concent 33.9, Mean Platelet Volume 9.2, Neutrophils (%) (Auto) 72.3, Lymphocytes (%) (Auto) 20.3, Monocytes (%) (Auto) 5.3, Eosinophils (%) (Auto) 1.3, Basophils (%) (Auto) 0.4, Neutrophils # (Auto) 5.21, Lymphocytes # (Auto) 1.46, Monocytes # (Auto) 0.38, Eosinophils # (Auto) 0.09, Basophils # (Auto) 0.03 06/25/17 22:00 Test 06/25/17 22:00 White Blood Count 7.20 K/uL (4.8-10.8) Red Blood Count 4.21 M/uL (4.7-6.1) Hemoglobin 12.4 g/dL (14.0-18.0) Hematocrit 36.6 % (42-52) Mean Corpuscular Volume 86.9 fL (80-100) Mean Corpuscular Hemoglobin 29.5 pg (25-34) Mean Corpuscular Hemoglobin Concent 33.9 g/dl (32-36) Platelet Count 311 K/uL (130-400) Mean Platelet Volume 9.2 fL (7.4-10.4) Neutrophils (%) (Auto) 72.3 % Lymphocytes (%) (Auto) 20.3 % Monocytes (%) (Auto) 5.3 % Eosinophils (%) (Auto) 1.3 % Basophils (%) (Auto) 0.4 % Neutrophils # (Auto) 5.21 K/uL (1.4-6.5) Lymphocytes # (Auto) 1.46 K/uL (1.2-3.4) Monocytes # (Auto) 0.38 K/uL (0.11-0.59) Eosinophils # (Auto) 0.09 K/uL (0-0.5) Basophils # (Auto) 0.03 K/uL (0-0.2) RDW Standard Deviation 43.9 fL (36.4-46.3) RDW Coefficient of Variation 14.1 % (11.5-14.5) Immature Granulocyte % (Auto) 0.4 % Immature Granulocyte # (Auto) 0.03 K/uL (0.00-0.02) Prothrombin Time 10.0 SECONDS (9.0-12.0) Prothromb Time International Ratio 0.9 (0.9-1.1) Activated Partial Thromboplast Time 28.9 SECONDS (21.0-31.0) Partial Thromboplastin Ratio 1.1 Anion Gap 7.0 mmol/L (3-11) Est Creatinine Clear Calc Drug Dose 87.5 ml/min Estimated GFR () 95.5 Estimated GFR (Non- 82.4 BUN/Creatinine Ratio 11.8 (10-20) Calcium Level 8.7 mg/dl (8.5-10.1) Total Bilirubin 0.3 mg/dl (0.2-1) Direct Bilirubin < 0.1 mg/dl (0-0.2) Aspartate Amino Transf (AST/SGOT) 6 U/L (15-37) Alanine Aminotransferase (ALT/SGPT) 18 U/L (12-78) Alkaline Phosphatase 83 U/L (45-117) Total Creatine Kinase 113 U/L (39-308) Creatine Kinase MB 0.5 ng/ml (0.5-3.6) Creatine Kinase MB Ratio 0.4 (0-3.0) Troponin I < 0.015 ng/ml (0-0.045) Total Protein 7.3 gm/dl (6.4-8.2) Albumin 3.9 gm/dl (3.4-5.0) Medications Administered Medications (Trade) Dose Ordered Sig/Ney Route Start Time Stop Time Status Last Admin Dose Admin Sodium Chloride 1,000 ml @ 50 mls/hr Q20H IV 06/25/17 22:41 07/25/17 22:40 06/25/17 22:57 50 MLS/HR Metoclopramide HCl (Reglan Inj) 10 mg NOW STAT IV 06/25/17 22:41 06/25/17 22:47 DC 06/25/17 22:57 10 MG Diphenhydramine HCl (Benadryl Inj) 12.5 mg NOW STAT IV 06/25/17 22:41 06/25/17 22:47 DC 06/25/17 22:57 12.5 MG Labetalol HCl (Normodyne IV) 10 mg NOW STAT IV 06/25/17 22:41 06/25/17 22:47 DC 06/25/17 23:01 10 MG Departure Information Referrals Thea Cortes M.D. (PCP) Patient Instructions [facility]
--- NOTE | 2017-06-26 01:27 | EMERGENCY ROOM VISIT NOTE ---
History First contact with patient: 22:30 Chief Complaint: STROKE SYMPTOMS Stated Complaint: HEADACHE/STIFF NECK Nursing Triage Summary: c/o severe headache and neck pain since 1600. pt took 800mg ibuprofen with no relief. hx stroke with normal left sided weakness. per ems pt had new onset of sided facial droop upon arrival to ed. pt also reports decreased sensation to left side of face History of Present Illness The patient is a 41 year old male who presents to the Emergency Room with complaints of severe head and neck pain since 4 PM today. Patient states he was sitting watching TV with symptoms started. He has a history of migraines but this feels slightly different. Patient has a history of CVA in the past and does have some left-sided weakness and left-sided facial droop. He states his facial droop and tingling to his face is slightly worse today. Symptoms started at 4 PM. Patient states his blood pressure is elevated. He has not missed his medications. Patient described his head and neck pain as stabbing, ranging in severity 10 out of 10. Nothing makes it better or worse. Patient denies fever, chest pain, dyspnea, chills, recent illness, localized weakness, abdominal pain, vomiting, diarrhea, vision problems. Patient states he occasionally has slurred speech. He's had a CVA in the past and states the symptoms comes and goes. Patient took Motrin prior to arrival. Review of Systems See HPI for pertinent positives & negatives. A total of 10 systems reviewed and were otherwise negative. Past Medical/Surgical History Medical Problems: (1) YOLA (acute kidney injury) (2) Anxiety (3) ARF (acute renal failure) (4) Asthma (5) Bipolar disorder (6) Chronic pain (7) DM type 2 (diabetes mellitus, type 2) (8) Dyslipidemia (9) GERD (gastroesophageal reflux disease) (10) History of coronary artery disease (11) HTN (hypertension) (12) Intellectual disability (13) Ischemic stroke (14) Nicotine addiction (15) Obesity (16) Opiate abuse, continuous (17) JOSE (obstructive sleep apnea) (18) Suicidal ideation Surgical Problems: (1) History of tonsillectomy and adenoidectomy (2) Hx of reconstruction of anterior cruciate ligament tear (3) S/P left knee arthroscopy Social History Problems: (1) Tobacco use Family History Diabetes mellitus FH: cancer FH: lung disease FH: migraines MOTHER FHx: gallbladder disease FHx: heart disease Hypertension Kidney disease Kidney stones Social History Smoking Status: Never Smoker Alcohol Use: none Drug Use: none Marital Status: Housing Status: lives alone Occupation Status: disabled Current/Historical Medications Scheduled Aspirin (Aspirin Ec), 81 MG PO DAILY Budesonide/Formoterol Fumarate (Symbicort 160/4.5 Inhaler), 2 PUFFS INH BID Clopidogrel (Plavix), 75 MG PO DAILY Duloxetine HCl (Duloxetine HCl), 60 MG PO DAILY Fenofibrate (Tricor), 48 MG PO HS Fluticasone Propionate (Nasal) (Flonase Allergy Relief), 2 SPRAYS CAROLEE DAILY Gabapentin (Neurontin), 400 MG PO TID Gabapentin (Gabapentin), 800 MG PO TID Metformin Hcl (Glucophage), 500 MG PO AMHS Metoprolol Succinate (Metoprolol Succinate ER), 50 MG PO DAILY Montelukast Sodium (Singulair), 10 MG PO DAILY Oxycodone Hcl (Oxycontin), 15 MG PO 5XD Quetiapine Fumarate (Seroquel), 150 MG PO HS Tizanidine Hcl (Tizanidine Hcl), 6 MG PO TID Trazodone Hcl (Desyrel), 150 MG PO HS Scheduled PRN Docusate Sodium (Stool Softener), 100 MG PO TID PRN for Constipation Tamsulosin Hcl (Flomax), 0.4 MG PO QAM PRN for Physical Exam Vital Signs Date Time Temp Pulse Resp B/P (MAP) Pulse Ox O2 Delivery O2 Flow Rate FiO2 06/26/17 00:30 69 20 152/97 95 Room Air 06/26/17 00:17 68 16 156/104 96 Room Air 06/25/17 23:23 36.7 63 18 157/98 97 Room Air 06/25/17 23:05 69 18 170/107 96 Room Air 06/25/17 23:01 97 Room Air 06/25/17 22:36 70 06/25/17 22:33 64 28 202/130 99 Room Air Physical Exam VITALS: Vitals are noted on the nurse's note and reviewed by myself. Vital signs hypertensive GENERAL: Pleasant male answering questions appropriately, in no acute distress, nondiaphoretic, well-developed well-nourished. SKIN: The skin was without rashes, erythema, edema, or bruising. There is no tenting of the skin. Capillary reflex less than 2 seconds. HEAD: Normocephalic atraumatic. EARS: External auditory canals clear, tympanic membranes pearly flower without erythema or effusion bilaterally. EYES: Pupils equal round and reactive to light and accommodation. Conjunctivae without injection, sclerae without icterus. Extraocular movements intact. NOSE: Patent, turbinates without inflammation or discharge. No sinus tenderness. MOUTH: Mucous membranes moist. Pharynx without erythema or exudate. Uvula midline. Airway patent. Tongue does not deviate. NECK: Supple without nuchal rigidity. No lymphadenopathy. No thyromegaly. Cervical spine is nontender. No JVD. HEART: Regular rate and rhythm without murmurs gallops or rubs. LUNGS: Clear to auscultation bilaterally without wheezes, rales or rhonchi. No dullness to percussion. No retractions or accessory muscle use. ABDOMEN: Positive bowel sounds x 4. Normal tympanic percussion. Soft, nontender, without masses or organomegaly. Telles sign negative. No guarding or rebound tenderness. MUSCULOSKELETAL: No muscle atrophy, erythema, or edema noted. NEURO: Patient was alert and oriented to person place and time. Minimal left- sided facial droop unchanged per chart review with subjective decrease sensation to the whole entire left side of face. No tongue deviation. Gag reflex is intact. Normal sensation to light and sharp touch in all other areas. No other focal neurological deficits. Medical Decision & Procedures Laboratory Results 06/25/17 22:00 Red Blood Count 4.21, Mean Corpuscular Volume 86.9, Mean Corpuscular Hemoglobin 29.5, Mean Corpuscular Hemoglobin Concent 33.9, Mean Platelet Volume 9.2, Neutrophils (%) (Auto) 72.3, Lymphocytes (%) (Auto) 20.3, Monocytes (%) (Auto) 5.3, Eosinophils (%) (Auto) 1.3, Basophils (%) (Auto) 0.4, Neutrophils # (Auto) 5.21, Lymphocytes # (Auto) 1.46, Monocytes # (Auto) 0.38, Eosinophils # (Auto) 0.09, Basophils # (Auto) 0.03 06/25/17 22:00 Test 06/25/17 22:00 White Blood Count 7.20 K/uL (4.8-10.8) Red Blood Count 4.21 M/uL (4.7-6.1) Hemoglobin 12.4 g/dL (14.0-18.0) Hematocrit 36.6 % (42-52) Mean Corpuscular Volume 86.9 fL (80-100) Mean Corpuscular Hemoglobin 29.5 pg (25-34) Mean Corpuscular Hemoglobin Concent 33.9 g/dl (32-36) Platelet Count 311 K/uL (130-400) Mean Platelet Volume 9.2 fL (7.4-10.4) Neutrophils (%) (Auto) 72.3 % Lymphocytes (%) (Auto) 20.3 % Monocytes (%) (Auto) 5.3 % Eosinophils (%) (Auto) 1.3 % Basophils (%) (Auto) 0.4 % Neutrophils # (Auto) 5.21 K/uL (1.4-6.5) Lymphocytes # (Auto) 1.46 K/uL (1.2-3.4) Monocytes # (Auto) 0.38 K/uL (0.11-0.59) Eosinophils # (Auto) 0.09 K/uL (0-0.5) Basophils # (Auto) 0.03 K/uL (0-0.2) RDW Standard Deviation 43.9 fL (36.4-46.3) RDW Coefficient of Variation 14.1 % (11.5-14.5) Immature Granulocyte % (Auto) 0.4 % Immature Granulocyte # (Auto) 0.03 K/uL (0.00-0.02) Prothrombin Time 10.0 SECONDS (9.0-12.0) Prothromb Time International Ratio 0.9 (0.9-1.1) Activated Partial Thromboplast Time 28.9 SECONDS (21.0-31.0) Partial Thromboplastin Ratio 1.1 Anion Gap 7.0 mmol/L (3-11) Est Creatinine Clear Calc Drug Dose 87.5 ml/min Estimated GFR () 95.5 Estimated GFR (Non- 82.4 BUN/Creatinine Ratio 11.8 (10-20) Calcium Level 8.7 mg/dl (8.5-10.1) Total Bilirubin 0.3 mg/dl (0.2-1) Direct Bilirubin < 0.1 mg/dl (0-0.2) Aspartate Amino Transf (AST/SGOT) 6 U/L (15-37) Alanine Aminotransferase (ALT/SGPT) 18 U/L (12-78) Alkaline Phosphatase 83 U/L (45-117) Total Creatine Kinase 113 U/L (39-308) Creatine Kinase MB 0.5 ng/ml (0.5-3.6) Creatine Kinase MB Ratio 0.4 (0-3.0) Troponin I < 0.015 ng/ml (0-0.045) Total Protein 7.3 gm/dl (6.4-8.2) Albumin 3.9 gm/dl (3.4-5.0) Medications Administered Medications (Trade) Dose Ordered Sig/Ney Route Start Time Stop Time Status Last Admin Dose Admin Sodium Chloride 1,000 ml @ 50 mls/hr Q20H IV 06/25/17 22:41 07/25/17 22:40 06/25/17 22:57 50 MLS/HR Metoclopramide HCl (Reglan Inj) 10 mg NOW STAT IV 06/25/17 22:41 06/25/17 22:47 DC 06/25/17 22:57 10 MG Diphenhydramine HCl (Benadryl Inj) 12.5 mg NOW STAT IV 06/25/17 22:41 06/25/17 22:47 DC 06/25/17 22:57 12.5 MG Labetalol HCl (Normodyne IV) 10 mg NOW STAT IV 06/25/17 22:41 06/25/17 22:47 DC 06/25/17 23:01 10 MG Prochlorperazine Edisylate (Compazine Inj) 10 mg NOW STAT IV 06/25/17 23:36 06/25/17 23:37 DC 06/26/17 00:15 10 MG Diphenhydramine HCl (Benadryl Inj) 12.5 mg NOW STAT IV 06/25/17 23:36 06/25/17 23:37 DC 06/26/17 00:16 12.5 MG ED Course Prior records/ancillary studies reviewed. Additional history obtained from EMS. Triage Nursing notes reviewed. The patient's history was concerning for headache. Differential diagnosis: Etiologies such as CVA, migraine headache, meningitis, sinusitis, CO exposure, ICH, SAH, infection, tumor, headache, sinus thrombosis, arterial dissection, as well as others were entertained. Physical examination findings: As above. Non-focal. ER treatment provided: Labetalol, Compazine, Benadryl, Reglan, Doxy On reassessment the patient felt better. Diagnostics interpreted by me: ECG: Normal sinus, normal intervals, no acute ST-T wave changes. Impression normal sinus rhythm interpreted by myself The labs revealed mild anemia. No leukocytosis. Imaging studies: Head and cervical CTs were reviewed and read by stat radiology CTA HEAD: No central occlusion related to the [place] of [place]. CTA NECK: No occlusion or high-grade stenosis. Nodular infiltrates in the right upper lung field Radiologist: Adela He M.D. Chest x-ray with no free air or pneumothorax per my interpretation. Possible right upper lobe infiltrate This appears to be consistent with migraine with hypertensive urgency and pneumonia. Patient states he feels much better. He is requesting to leave. He was neurovascularly and neurologically intact. He was started on antibiotics and advised to follow-up in a day or 2 with family care here in the ER sooner for high fevers, lethargy, localized weakness, headache, worsening signs or symptoms or as needed. Patient no signs of meningitis. He was well- appearing. By the evaluation outlined above emergent etiologies such as meningitis, sinusitis, CO exposure, ICH, SAH, infection, temporal arteritis, tumor, sinus thrombosis, arterial dissection, as well as others were deemed relatively unlikely. The pt informed about the findings as listed above. All questions were answered and pleased with the treatment. Return instructions were outlined and the patient was discharged in stable condition. Case reviewed with my Attending Referral: The patient was referred back to their primary care physician for follow-up in 2 to 3 days for a recheck of the current condition. Medical Decision As above Medication Reconcilliation Current Medication List: was personally reviewed by me Blood Pressure Screening Patient's blood pressure: Elevated blood pressure Blood pressure disposition: Referred to PCP Impression Primary Impression: Migraine Additional Impressions: Neck pain Pneumonia Departure Information Dispostion Home / Self-Care Condition GOOD Referrals Thea Cortes M.D. (PCP) Patient Instructions My [facility] Additional Instructions DO NOT drive, drink alcohol, operate machinery, or perform dangerous activities today. You were given medications in the ER that can affect your ability to safely function or operate a vehicle. Monitor your blood pressure. Doxycycline 100mg: Take one pill twice daily for seven days for your infection. Take with food, but avoid dairy. Avoid prolonged sun exposure since this medication makes you temporarily more susceptible to sunburns. All antibiotics can cause diarrhea. If this occurs and you feel worse or it does not resolve in 1-2 days follow up with your doctor or return to the Emergency Department as this could be signs of serious underlying problems. Any medication can cause an allergic reaction, stop the pills immediately and return to the ER for rash, hives, breathing difficulties, or swelling. Acetaminophen(Tylenol) may be used for fever or pain. Use 1000mg every six hours as needed. Avoid using more than 3000mg in a 24 hour period. AND/OR Ibuprofen(Motrin, Advil) may be used for fever or pain. Use 600mg every six hours as needed. Take with food. Avoid using more than 2400mg in a 24 hour period. Do not use 2400mg per day for more than three consecutive days without physician direction. Prolonged inappropriate use can lead to stomach upset or ulcers. Controlling your fever with Tylenol and Ibuprofen as above will make you feel better. Rest and drink plenty of fluids. Avoid strenuous activity until your symptoms resolve and your breathing returns to normal. Continue current medications. Return to the ER for chest pain, severe headache, neck stiffness, difficulty breathing, persistent fevers, vomiting, worsening of your condition, or as needed. Follow-up with family care in 2-3 days. Problem Qualifiers Primary Impression: Migraine Migraine type: without aura Status migrainosus presence: without status migrainosus Intractability: not intractable Qualified Codes: G43.009 - Migraine without aura, not intractable, without status migrainosus
[2017-06-26] MEDS ORDERED: DOXY100C2 PO (01:29)
[2017-06-26] MEDS ORDERED: DOXYCYCLINE HYCLATE 100 MG CAP PO ONE (01:30)
[2017-06-26 01:44] VITALS: BP 154/94; PULSE 82; O2SAT 97
--- NOTE | 2017-06-26 06:42 | DIAGNOSTIC IMAGING REPORT ---
HEAD WITHOUT CONTRAST (CT) CLINICAL HISTORY: 41 years-old Male with severe head/neck pain, HTN. TECHNIQUE: Multiple axial CT images of the head were obtained without contrast. A dose lowering technique was utilized adhering to the principles of ALARA. COMPARISON: CT head 05/21/2017. FINDINGS: No acute intracranial hemorrhage, midline shift, mass, large territorial ischemia or abnormal extra-axial collection. Encephalomalacia of the right frontal lobe in the MCA distribution is again noted compatible with remote infarction. The calvarium is intact. The paranasal sinuses, mastoid air cells, and middle ear cavities are clear. IMPRESSION: 1. No acute intracranial abnormality. 2. Remote infarction of the right MCA territory. The above report was generated using voice recognition software. It may contain grammatical, syntax or spelling errors. Electronically signed by: Shahbaz Prasad M.D. 06/26/2017 6:41 AM Dictated Date/Time: 06/26/2017 6:38 AM
--- NOTE | 2017-06-26 07:04 | DIAGNOSTIC IMAGING REPORT ---
CHEST ONE VIEW PORTABLE CLINICAL HISTORY: 41 years-old Male presenting with poss infiltrate on neck CT. TECHNIQUE: Portable upright AP view of the chest was obtained. COMPARISON: . FINDINGS: Cardiomediastinal silhouette normal. Mildly low lung volumes with hypoventilatory changes. No focal infiltrate. Pleural spaces clear. Osseous structures normal. Upper abdomen normal. IMPRESSION: 1. No focal infiltrate. Mildly low lung volumes. Electronically signed by: Jairon Acevedo M.D. 06/26/2017 7:02 AM Dictated Date/Time: 06/26/2017 7:02 AM
--- NOTE | 2017-06-26 07:04 | DIAGNOSTIC IMAGING REPORT ---
CERVICAL SPINE CT CT DOSE: 1184.78 mGy.cm HISTORY: severe neck pain TECHNIQUE: Multiaxial CT images of the cervical spine were performed and reformatted in the sagittal and coronal plane without the use of contrast. A dose lowering technique was utilized adhering to the principles of ALARA. COMPARISON: None. FINDINGS: No fractures. No subluxation. Prevertebral soft tissues and the C1-C2 interval are intact. No pneumothorax. IMPRESSION: No fractures within the cervical spine. Electronically signed by: Avila Carney M.D. 06/26/2017 7:02 AM Dictated Date/Time: 06/26/2017 7:01 AM
--- NOTE | 2017-06-26 07:07 | DIAGNOSTIC IMAGING REPORT ---
NECK CTA HISTORY: Left facial droop. Severe neck pain. TECHNIQUE: Multiaxial CT images of the neck were performed following the intravenous administration of contrast to evaluate the major cervical vessels. Maximum intensity projection images were also obtained. All measurements were calculated based on NASCET criteria. A dose lowering technique was utilized adhering to the principles of ALARA. COMPARISON STUDY: None. FINDINGS: The aortic arch and proximal great vessels are widely patent. There is no significant stenosis, occlusion, or dissection identified within the bilateral common carotid, internal carotid, or vertebral arteries. Mild noncalcified atherosclerotic plaque within the left carotid bulb without significant stenosis. The right vertebral artery is hypoplastic in comparison to the left and terminates in the right posterior inferior cerebellar artery. This is considered to be a normal variant. Partially visualized patchy groundglass airspace opacities within the right upper lobe. IMPRESSION: No significant stenosis, occlusion, or dissection identified within the carotid or vertebral arteries. Patchy groundglass airspace opacities within the right upper lobe. This favors a pneumonia. Electronically signed by: Avila Carney M.D. 06/26/2017 7:06 AM Dictated Date/Time: 06/26/2017 7:02 AM
--- NOTE | 2017-06-26 07:11 | DIAGNOSTIC IMAGING REPORT ---
HEAD ANGIO WITH CONTRAST CLINICAL HISTORY: 41 years-old Male presenting with left facial droop and tingling. TECHNIQUE: Multidetector CT angiography of the head was performed after the administration of intravenous contrast. 3-D volumetric and/or maximum intensity projection (MIP) images were subsequently reconstructed for review. IV contrast: 92 mL of Optiray 320. A dose lowering technique was used consistent with the principles of ALARA (as low as reasonably achievable). COMPARISON: Correlation made to noncontrast CT head performed the previous day. CT DOSE (mGy.cm): The estimated cumulative dose is 638.20. FINDINGS: Blood Bank Laboratory Technologist topogram: Unremarkable. Redemonstration of chronic right MCA territory infarct. Anterior circulation including the anterior and middle cerebral arteries and anterior commuting artery patent. Bilateral posterior communicating arteries patent. Posterior circulation demonstrates a left dominant vertebral artery, which fully comprises the basilar artery. Hypoplastic bilateral P1 segments of the posterior cerebral arteries. The superior cerebellar and posterior cerebral arteries are patent bilaterally. No evidence of stenosis, occlusion, or aneurysm. Dural venous sinuses patent. Visualized soft tissues of the face normal. Calvarium intact. Paranasal sinuses and mastoid air cells clear. IMPRESSION: 1. No evidence of stenosis, occlusion, or aneurysm in the intracranial vessels. 2. Chronic right MCA territory infarct. Electronically signed by: Jairon Acevedo M.D. 06/26/2017 7:10 AM Dictated Date/Time: 06/26/2017 7:05 AM
[2017-07-26] MEDS ORDERED: ASPI81TA28 PO (03:53)
== END 2017-06-26 01:45 | disposition home or self-care (01) ==
LOC: EDBD 22:22 → C.EDC 22:23
DX: G43.009 Migraine without aura, not intractable, without status migrainosus (principal); M54.2 Cervicalgia; J18.9 Pneumonia, unspecified organism; Z86.73 Personal history of transient ischemic attack (TIA), and cerebral infarction without residual deficits; F41.9 Anxiety disorder, unspecified; N17.9 Acute kidney failure, unspecified; F31.9 Bipolar disorder, unspecified; E11.9 Type 2 diabetes mellitus without complications; E78.5 Hyperlipidemia, unspecified; K21.9 Gastro-esophageal reflux disease without esophagitis; I10 Essential (primary) hypertension; E66.9 Obesity, unspecified; G47.33 Obstructive sleep apnea (adult) (pediatric); Z83.3 Family history of diabetes mellitus; Z80.9 Family history of malignant neoplasm, unspecified; Z83.6 Family history of other diseases of the respiratory system; Z84.1 Family history of disorders of kidney and ureter; Z82.49 Family history of ischemic heart disease and other diseases of the circulatory system; Z79.82 Long term (current) use of aspirin; Z79.02 Long term (current) use of antithrombotics/antiplatelets; Z79.899 Other long term (current) drug therapy

== ENCOUNTER 2017-07-26 18:59 | Emergency (ER) | payer OTHER ==
[~2017-07-26] VITALS: Ht 175.3 cm; Wt 108.2 kg
[~2017-07-26 18:59] MED LIST changes: +ASPI81TA28 PO; -ATOR-22 PO; +CYM60 PO; +DOXY100C2 PO; -HYDR25TA5 PO; +NRN800 PO; +OXYC15TA89 PO; +TIZA1CAP3 PO; -TPRSR25 PO; +TRAZ1TAB52 PO
[2017-07-26 19:07] VITALS: TEMP 37.2; O2SAT 97; Ht 175.3 cm; Wt 108.2 kg
[2017-07-26 19:49] LABS: BASO % 0.5 %; BASO ABS # 0.04 K/uL (0-0.2); COMPLETE YES; EOS % 2.9 %; HEMATOCRIT 38.3 % (42-52); IG% 0.4 %; LYMPH % 17.9 %; LYMPH ABS # 1.35 K/uL (1.2-3.4); MEAN CELL VOLUME 85.7 fL (80-100); MEAN CORPUSCULAR HEMOGLOBIN 30.2 pg (25-34); MEAN CORPUSCULAR HGB CONC 35.2 g/dl (32-36); MEAN PLATELET VOLUME 9.6 fL (7.4-10.4); MONO % 5.3 %; PLATELET COUNT 263 K/uL (130-400); RED BLOOD COUNT 4.47 M/uL (4.7-6.1); WHITE BLOOD COUNT 7.53 K/uL (4.8-10.8)
--- NOTE | 2017-07-26 19:50 | EMERGENCY ROOM VISIT NOTE ---
History Report prepared by Hebert: Amilcar Ha Under the Supervision of: Dr. Gayathri Dixon D.O. First contact with patient: 19:03 Stated Complaint: HTN, HEADACHE, DIZZINESS History of Present Illness The patient is a 41 year old male who presents to the Emergency Room with complaints of constant high blood pressure first noticed around 1500 this afternoon. The patient states that he was having PT and OT for weakness in his arms and legs which is currently being evaluated by neurology, and they measured his blood pressure, and it was 160/114 at 1500 and then 184/114.at 1700. The patient states that he has additionally had slowly developed a headache which is a 10/10 in severity, chest pressure, dizziness, and ringing in his ears. He states that he has had no change in diet, no increased caffeine or salt intake. The patient states that he has a history of hypertension, and he takes metoprolol, and he has not missed any doses. He states that a month ago he had high blood pressure as well with similar symptoms. He states he was seen and evaluated in the emergency room and subsequent discharge. CT followed up with his family doctor but no medication changes were made. The patient additionally has a history of reflux, though he states that this feels different. He additionally states that he has had a problem with his kidneys in the past. He states that he uses chewing tobacco. Pt denies change in vision, fevers, shortness of breath, nausea, vomiting, diarrhea, pain with urination, and melena. Patient states currently he still has a headache and chest pressure. No vision changes, no numbness or tingling, no nausea or vomiting. Source of History: patient Onset: 1500 Position: other (global) Quality: other (high blood pressure) Timing: constant Associated Symptoms: + headache, + chest pain Note: Associated symptoms: ear ringing and dizziness Review of Systems See HPI for pertinent positives & negatives. A total of 10 systems reviewed and were otherwise negative. Past Medical & Surgical Medical Problems: (1) YOLA (acute kidney injury) (2) Anxiety (3) ARF (acute renal failure) (4) Asthma (5) Bipolar disorder (6) Chronic pain (7) DM type 2 (diabetes mellitus, type 2) (8) Dyslipidemia (9) GERD (gastroesophageal reflux disease) (10) History of coronary artery disease (11) HTN (hypertension) (12) Intellectual disability (13) Ischemic stroke (14) Nicotine addiction (15) Obesity (16) Opiate abuse, continuous (17) JOSE (obstructive sleep apnea) (18) Suicidal ideation Surgical Problems: (1) History of tonsillectomy and adenoidectomy (2) Hx of reconstruction of anterior cruciate ligament tear (3) S/P left knee arthroscopy Social History Problems: (1) Tobacco use Family History Diabetes mellitus FH: cancer FH: lung disease FH: migraines MOTHER FHx: gallbladder disease FHx: heart disease Hypertension Kidney disease Kidney stones Social History Smoking Status: Never Smoker Alcohol Use: none Drug Use: none Marital Status: Housing Status: lives alone Occupation Status: disabled Current/Historical Medications Scheduled Aspirin (Aspirin Ec), 81 MG PO QAM Atorvastatin (Atorvastatin Calcium), 40 MG PO QAM Budesonide/Formoterol Fumarate (Symbicort 160/4.5 Inhaler), 2 PUFFS INH BID Clopidogrel Bisulfate (Clopidogrel), 75 MG PO QAM Econazole Nitrate (Econazole Nitrate), 1 APPLN TOP BID Fenofibrate (Fenofibrate), 48 MG PO HS Fluticasone Propionate (Fluticasone Propionate), 2 SPRAYS CAROLEE HS Gabapentin (Gabapentin), 400 MG PO TID Metformin HCl (Metformin HCl), 500 MG PO BID Metoprolol Succinate (Metoprolol Succinate ER), 50 MG PO BID Montelukast Sod (Montelukast Sodium), 10 MG PO QAM Oxycodone Hcl (Oxycodone Hcl), 15 MG PO 5XD Pantoprazole (Pantoprazole Sodium), 40 MG PO QAM Quetiapine Fumarate (Quetiapine Fumarate), 150 MG PO HS Tamsulosin HCl (Tamsulosin HCl), 0.4 MG PO QAM Topiramate (Topiramate), 25 MG PO UD Trazodone HCl (Trazodone HCl), 150 MG PO HS Scheduled PRN Docusate Sodium (Stool Softener), 100 MG PO TID PRN for Constipation Allergies Coded Allergies: Hydrocodone (Verified Allergy, Unknown, hives, itching, 05/21/17) Tramadol (Unverified Adverse Reaction, Unknown, VOMITING, 05/21/17) Physical Exam Vital Signs Date Time Temp Pulse Resp B/P (MAP) Pulse Ox O2 Delivery O2 Flow Rate FiO2 07/26/17 23:30 70 17 147/95 97 07/26/17 23:04 81 07/26/17 22:31 73 18 148/79 95 Room Air 07/26/17 22:10 71 18 177/96 97 Room Air 07/26/17 21:38 72 18 177/104 97 Room Air 07/26/17 20:57 74 18 132/109 97 Room Air 07/26/17 20:47 78 155/113 07/26/17 20:38 84 18 155/113 97 Room Air 07/26/17 19:25 87 07/26/17 19:09 97 Room Air 07/26/17 19:07 97 Room Air 07/26/17 19:07 37.2 86 20 176/100 97 Room Air Physical Exam GENERAL: alert, well appearing, well nourished, no distress, non-toxic EYE EXAM: normal conjunctiva, PERRL and EOM's grossly intact OROPHARYNX: no exudate, no erythema, lips, buccal mucosa, and tongue normal and mucous membranes are moist NECK: supple, no nuchal rigidity, no adenopathy, non-tender LUNGS: Clear to auscultation. Normal chest wall mechanics HEART: no murmurs, S1 normal and S2 normal ABDOMEN: abdomen soft, non-tender, normo-active bowel sounds, no masses, no rebound or guarding. BACK: Back is symmetrical on inspection and there is no deformity, no midline tenderness, no CVA tenderness. SKIN: no rashes and no bruising UPPER EXTREMITIES: Mild atrophy noted to both hands bilaterally prominent at the webspace between the first and second digit as well as the thenar eminence. LOWER EXTREMITIES: No pitting edema. 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 Normal sensorium , cranial nerves II-XII grossly intact, normal speech, no gross weakness of legs. Gross sensation intact. Medical Decision & Procedures ER Provider Diagnostic Interpretation: Radiology results have been interpreted by the radiologist and reviewed by me. HEAD WITHOUT CONTRAST (CT) CT DOSE: 1074.96 mGy.cm HISTORY: Mental status change htn, dizzy, rao TECHNIQUE: Multiaxial CT images of the head were performed without the use of intravenous contrast. A dose lowering technique was utilized adhering to the principles of ALARA. Comparison: 06/26/2017 Findings: The paranasal sinuses and mastoid air cells are clear. Old right middle cerebral arterial infarct unchanged. No new or interval process. No acute intracranial abnormality. Impression: Old right cerebral infarct. No acute intracranial abnormality. The above report was generated using voice recognition software. It may contain grammatical, syntax or spelling errors. Electronically signed by: Mukesh Uribe M.D. 07/26/2017 8:18 PM Dictated Date/Time: 07/26/2017 8:17 PM CHEST ONE VIEW PORTABLE CLINICAL HISTORY: chest pain dyspnea COMPARISON STUDY: 06/26/2017 FINDINGS: The bones soft tissues and hemidiaphragms are normal. The cardiomediastinal silhouette is normal. The lungs are clear. The pulmonary vasculature is normal. IMPRESSION: Negative chest. The above report was generated using voice recognition software. It may contain grammatical, syntax or spelling errors. Electronically signed by: Mukesh Uribe M.D. 07/26/2017 8:34 PM Dictated Date/Time: 07/26/2017 8:34 PM Laboratory Results 07/26/17 18:41 Red Blood Count 4.47, Mean Corpuscular Volume 85.7, Mean Corpuscular Hemoglobin 30.2, Mean Corpuscular Hemoglobin Concent 35.2, Mean Platelet Volume 9.6, Neutrophils (%) (Auto) 73.0, Lymphocytes (%) (Auto) 17.9, Monocytes (%) (Auto) 5.3, Eosinophils (%) (Auto) 2.9, Basophils (%) (Auto) 0.5, Neutrophils # (Auto) 5.49, Lymphocytes # (Auto) 1.35, Monocytes # (Auto) 0.40, Eosinophils # (Auto) 0.22, Basophils # (Auto) 0.04 07/26/17 18:41 Test 07/26/17 18:41 07/26/17 19:43 07/26/17 19:51 07/26/17 22:12 White Blood Count 7.53 K/uL (4.8-10.8) Red Blood Count 4.47 M/uL (4.7-6.1) Hemoglobin 13.5 g/dL (14.0-18.0) Hematocrit 38.3 % (42-52) Mean Corpuscular Volume 85.7 fL (80-100) Mean Corpuscular Hemoglobin 30.2 pg (25-34) Mean Corpuscular Hemoglobin Concent 35.2 g/dl (32-36) Platelet Count 263 K/uL (130-400) Mean Platelet Volume 9.6 fL (7.4-10.4) Neutrophils (%) (Auto) 73.0 % Lymphocytes (%) (Auto) 17.9 % Monocytes (%) (Auto) 5.3 % Eosinophils (%) (Auto) 2.9 % Basophils (%) (Auto) 0.5 % Neutrophils # (Auto) 5.49 K/uL (1.4-6.5) Lymphocytes # (Auto) 1.35 K/uL (1.2-3.4) Monocytes # (Auto) 0.40 K/uL (0.11-0.59) Eosinophils # (Auto) 0.22 K/uL (0-0.5) Basophils # (Auto) 0.04 K/uL (0-0.2) RDW Standard Deviation 42.3 fL (36.4-46.3) RDW Coefficient of Variation 13.5 % (11.5-14.5) Immature Granulocyte % (Auto) 0.4 % Immature Granulocyte # (Auto) 0.03 K/uL (0.00-0.02) Anion Gap 11.0 mmol/L (3-11) Est Creatinine Clear Calc Drug Dose 106.1 ml/min Estimated GFR () 95.5 Estimated GFR (Non- 82.4 BUN/Creatinine Ratio 15.9 (10-20) Calcium Level 8.9 mg/dl (8.5-10.1) Total Bilirubin 0.5 mg/dl (0.2-1) Aspartate Amino Transf (AST/SGOT) 12 U/L (15-37) Alanine Aminotransferase (ALT/SGPT) 17 U/L (12-78) Alkaline Phosphatase 80 U/L (45-117) Total Protein 7.7 gm/dl (6.4-8.2) Albumin 4.0 gm/dl (3.4-5.0) Globulin 3.7 gm/dl (2.5-4.0) Albumin/Globulin Ratio 1.1 (0.9-2) Thyroid Stimulating Hormone (TSH) 0.646 uIu/ml (0.300-4.500) Urine Color YELLOW Urine Appearance CLEAR (CLEAR) Urine pH 7.5 (4.5-7.5) Urine Specific [place] 1.008 (1.000-1.030) Urine Protein NEG (NEG) Urine Glucose (UA) NEG (NEG) Urine Ketones NEG (NEG) Urine Occult Blood NEG (NEG) Urine Nitrite NEG (NEG) Urine Bilirubin NEG (NEG) Urine Urobilinogen NEG (NEG) Urine Leukocyte Esterase NEG (NEG) Urine Opiates Screen NEG (NEG) Urine Methadone, Qualitative NEG (NEG) Urine Barbiturates NEG (NEG) Urine Phencyclidine (PCP) Level NEG (NEG) Ur Amphetamine/Methamphetamine NEG (NEG) MDMA (Ecstasy) Screen NEG (NEG) Urine Benzodiazepines Screen NEG (NEG) Urine Cocaine Metabolite NEG (NEG) Urine Marijuana (THC) NEG (NEG) Ethyl Alcohol mg/dL < 3.0 mg/dl (0-3) Troponin I < 0.015 ng/ml (0-0.045) Laboratory results per my review. Medications Administered Medications (Trade) Dose Ordered Sig/Ney Route Start Time Stop Time Status Last Admin Dose Admin Metoprolol Tartrate (Lopressor Iv) 5 mg NOW STAT IV 07/26/17 20:15 07/26/17 20:17 DC 07/26/17 20:47 5 MG Ketorolac Tromethamine (Toradol Inj) 30 mg NOW STAT IV 07/26/17 21:13 07/26/17 21:15 DC 07/26/17 21:31 30 MG Ondansetron HCl (Zofran Inj) 4 mg NOW STAT IV 07/26/17 21:13 07/26/17 21:15 DC 07/26/17 21:30 4 MG Diphenhydramine HCl (Benadryl Inj) 25 mg NOW STAT IV 07/26/17 21:13 07/26/17 21:15 DC 07/26/17 21:31 25 MG Metoprolol Tartrate (Lopressor Tab) 50 mg NOW STAT PO 07/26/17 21:48 07/26/17 21:49 DC 07/26/17 22:16 50 MG Acetaminophen (Tylenol Tab) 650 mg NOW STAT PO 07/26/17 21:53 07/26/17 21:54 DC 07/26/17 22:16 650 MG ECG Indication: other (hypertension) Rate (beats per minute): 95 Rhythm: normal sinus Findings: no acute ischemic change, no ectopy, other (Normal axis, normal intervals) ED Course 1902: The patient was evaluated in room B6. A complete history and physical exam was performed. 2014: Lopressor 5mg IV 2112: Benadryl Inj 25mg IV, Zofran Inj 4mg IV, Toradol Inj 30mg IV 2146: I reevaluated the patient, and he states that the head and chest pain are not gone but are better. He states that he missed his afternoon metoprolol. 2147: Lopressor Tab 50mg PO 2152: Tylenol Tab 650mg PO 2339: Upon reevaluation, the patient is feeling better. I discussed the findings and the treatment plan with the patient. He verbalizes agreement and understanding. He was discharged home. Medical Decision Differential diagnosis: Etiologies such as cardiac ischemia, aortic dissection, pulmonary embolism, pneumonia, pneumothorax, musculoskeletal, infections, pericarditis, myocarditis , esophageal rupture, gastrointestinal, as well as others were entertained. Patient well-appearing here despite complaints. The pressures here improved, patient given one dose of his usual metoprolol as he was past due for his afternoon dose. Patient sips only given Nizoral dose prior to discharge. Patient with no evidence of hypertensive emergency, no evidence of end organ damage. Symptoms improved. Labs and imaging reassuring. Discussed with patient close follow-up with family doctor, need for continued compliance with his blood pressure medications, low-salt diet, adequate hydration, continued outpatient follow-up with neurology and physical therapy, symptoms to watch and return for, he verbalized understanding was agreeable with plan. Doubt ACS, dissection, occult infectious etiology, tamponade, AAA, CVA, intracerebral hemorrhage, cerebellar stroke. Patient with no focal neuro deficits at bedside despite chronic weakness of hands and legs. Medication Reconcilliation Current Medication List: was personally reviewed by me Blood Pressure Screening Patient's blood pressure: Elevated blood pressure Blood pressure disposition: Referred to PCP Impression Primary Impression: HTN (hypertension) Additional Impressions: Anxiety Chest pain Headache Scribe Attestation The scribe's documentation has been prepared under my direction and personally reviewed by me in its entirety. I confirm that the note above accurately reflects all work, treatment, procedures, and medical decision making performed by me. Departure Information Dispostion Home / Self-Care Referrals Thea Cortes M.D. (PCP) Forms IMPORTANT VISIT INFORMATION Patient Instructions My [facility] Additional Instructions Please continue your regular medicines as prescribed. Please call and follow- up with your family doctor and discuss your blood pressure readings today. Please continue your additional neurology evaluation also. If you develop recurrent headaches, chest pain, trouble breathing, dizziness, worsening weakness, vision changes, speech difficulties, or you have any other new or concerning symptoms, please return to the emergency room. Problem Qualifiers Primary Impression: HTN (hypertension) Hypertension type: essential hypertension Qualified Codes: I10 - Essential ( primary) hypertension Additional Impressions: Chest pain Chest pain type: unspecified Qualified Codes: R07.9 - Chest pain, unspecified Headache Headache type: unspecified Headache chronicity pattern: episodic headache Intractability: not intractable Qualified Codes: R51 - Headache
[2017-07-26 20:02] LABS: URINE APPEARANCE CLEAR (CLEAR); URINE BILIRUBIN NEG (NEG); URINE COLOR YELLOW; URINE NITRITE NEG (NEG); URINE PH 7.5 (4.5-7.5); URINE SPECIFIC GRAVITY 1.008 (1.000-1.030); UROBILINOGEN NEG (NEG); ZZUR CULT IF INDIC CLEAN CATCH NO
[2017-07-26 20:06] LABS: MANUAL MICROSCOPIC REQUIRED? NO; REVIEW REQ? NO
[2017-07-26 20:08] LABS: ALT/SGPT 17 U/L (12-78); BLOOD UREA NITROGEN 18 mg/dl (7-18); BUN/CREATININE RATIO 15.9 (10-20); CALCIUM 8.9 mg/dl (8.5-10.1); CARBON DIOXIDE 21 mmol/L (21-32); CHLORIDE 107 mmol/L (98-107); GLUCOSE 143 mg/dl (70-99); POTASSIUM 3.4 mmol/L (3.5-5.1); SODIUM 139 mmol/L (136-145)
[2017-07-26] MEDS ORDERED: METOPROLOL TARTRATE 1 MG/ML VIAL IV STA (20:15)
[2017-07-26 20:19] LABS: ALB/GLOB RATIO 1.1 (0.9-2); ALKALINE PHOSPHATASE 80 U/L (45-117); AST/SGOT 12 U/L (15-37); THYROID STIMULATING HORMONE 0.646 uIu/ml (0.300-4.500)
--- NOTE | 2017-07-26 20:19 | DIAGNOSTIC IMAGING REPORT ---
HEAD WITHOUT CONTRAST (CT) CT DOSE: 1074.96 mGy.cm HISTORY: Mental status change htn, dizzy, rao TECHNIQUE: Multiaxial CT images of the head were performed without the use of intravenous contrast. A dose lowering technique was utilized adhering to the principles of ALARA. Comparison: 06/26/2017 Findings: The paranasal sinuses and mastoid air cells are clear. Old right middle cerebral arterial infarct unchanged. No new or interval process. No acute intracranial abnormality. Impression: Old right cerebral infarct. No acute intracranial abnormality. The above report was generated using voice recognition software. It may contain grammatical, syntax or spelling errors. Electronically signed by: Mukesh Uribe M.D. 07/26/2017 8:18 PM Dictated Date/Time: 07/26/2017 8:17 PM
[2017-07-26 20:22] LABS: BENZODIAZEPINE, URINE NEG (NEG); COCAINE,URINE NEG (NEG); PHENCYCLIDINE, URINE NEG (NEG)
--- NOTE | 2017-07-26 20:35 | DIAGNOSTIC IMAGING REPORT ---
CHEST ONE VIEW PORTABLE CLINICAL HISTORY: chest pain dyspnea COMPARISON STUDY: 06/26/2017 FINDINGS: The bones soft tissues and hemidiaphragms are normal. The cardiomediastinal silhouette is normal. The lungs are clear. The pulmonary vasculature is normal. IMPRESSION: Negative chest. The above report was generated using voice recognition software. It may contain grammatical, syntax or spelling errors. Electronically signed by: Mukesh Uribe M.D. 07/26/2017 8:34 PM Dictated Date/Time: 07/26/2017 8:34 PM
[2017-07-26] MEDS ORDERED: DOCU100T7 PO (20:42)
[2017-07-26] MEDS ORDERED: DiphenhydrAMINE HCL 50 MG/ML VIAL IV STA (21:13)
[2017-07-26] MEDS ORDERED: ONDANSETRON INJ 2 MG/ML 2 ML VIAL IV STA (21:13)
[2017-07-26] MEDS ORDERED: KETOROLAC TROMETHAMINE 30 MG/ML VIAL IV STA (21:13)
[2017-07-26] MEDS ORDERED: GLC500 PO (21:29)
[2017-07-26] MEDS ORDERED: TRC48 PO (21:29)
[2017-07-26] MEDS ORDERED: OXY/15 PO (21:29)
[2017-07-26] MEDS ORDERED: LPT40 PO (21:29)
[2017-07-26] MEDS ORDERED: SRQ100 PO (21:29)
[2017-07-26] MEDS ORDERED: ECON118C TOP (21:29)
[2017-07-26] MEDS ORDERED: TPM25 PO (21:29)
[2017-07-26] MEDS ORDERED: PRT/40 PO (21:31)
[2017-07-26] MEDS ORDERED: SNG10 PO (21:31)
[2017-07-26] MEDS ORDERED: FLM4 PO (21:34)
[2017-07-26] MEDS ORDERED: DSY/150 PO (21:34)
[2017-07-26] MEDS ORDERED: NRN400 PO (21:34)
[2017-07-26] MEDS ORDERED: PLV75 PO (21:34)
[2017-07-26] MEDS ORDERED: FLNIN/ NAE (21:35)
[2017-07-26] MEDS ORDERED: METOPROLOL TARTRATE 50 MG TAB PO STA (21:48)
[2017-07-26] MEDS ORDERED: ACETAMINOPHEN 325 MG TAB PO STA (21:53)
[2017-07-26] MEDS ORDERED: SYMIN160 INH (22:40)
[2017-07-26] MEDS ORDERED: TPRSR/50 PO (23:14)
[2017-07-26 23:30] VITALS: BP 147/95; PULSE 70; O2SAT 97
== END 2017-07-26 23:30 | disposition home or self-care (01) ==
LOC: EDBD 18:59 → C.EDB 19:01
DX: I10 Essential (primary) hypertension (principal); F41.9 Anxiety disorder, unspecified; R07.89 Other chest pain; R51 Headache; R42 Dizziness and giddiness; E11.9 Type 2 diabetes mellitus without complications; E78.5 Hyperlipidemia, unspecified; F31.9 Bipolar disorder, unspecified; G47.33 Obstructive sleep apnea (adult) (pediatric); K21.9 Gastro-esophageal reflux disease without esophagitis; J45.909 Unspecified asthma, uncomplicated; Z79.82 Long term (current) use of aspirin; Z79.84 Long term (current) use of oral hypoglycemic drugs; Z79.891 Long term (current) use of opiate analgesic; Z86.73 Personal history of transient ischemic attack (TIA), and cerebral infarction without residual deficits; Z86.79 Personal history of other diseases of the circulatory system; Z87.448 Personal history of other diseases of urinary system

== ENCOUNTER 2017-08-24 19:23 | Emergency (ER) | payer OTHER ==
[~2017-08-24] VITALS: Ht 175.3 cm; Wt 114.0 kg
[~2017-08-24 19:23] MED LIST changes: -CLOP1TAB15 PO; -CYM60 PO; +DOCU100T7 PO; -DOXY100C2 PO; +DSY/150 PO; +ECON118C TOP; -FENO48TA9 PO; +FLM4 PO; +FLNIN/ NAE; -FLUT0.15 NAE; -GABA1CAP5 PO; +GLC500 PO; +LPT40 PO; -METF500T PO; -MONT1TAB3 PO; +NRN400 PO; -NRN800 PO; +OXY/15 PO; -OXYC15TA89 PO; +PLV75 PO; +PRT/40 PO; -QUET1TAB34 PO; +SNG10 PO; +SRQ100 PO; +SYMIN160 INH; -TAMS0.4C38 PO; -TIZA1CAP3 PO; +TPM25 PO; +TPRSR/50 PO; -TRAZ1TAB52 PO; +TRC48 PO
[2017-08-24 19:33] VITALS: TEMP 37.5
--- NOTE | 2017-08-24 20:34 | EMERGENCY ROOM VISIT NOTE ---
History Report prepared by Porfirioibjuan david: Jennifer Collins Under the Supervision of: Dr. Kemal Greer M.D. First contact with patient: 20:11 Chief Complaint: OTHER COMPLAINT Stated Complaint: BLACK AND BLUE SALDANA EVERYWHERE- HX STROKE History of Present Illness The patient is a 42 year old male who presents to the Emergency Room with complaints of bruising throughout his body beginning about a week ago. The patient denies any recent falls, getting hit, or hitting himself. The patient saw his neurologist on Saturday and was referred to come to the ED. He denies any fever chills, abdominal pain, nausea or vomiting. The patient is on Plavix for a stroke he had in December. He also takes aspirin and stopped Plavix yesterday and missed one dosage. The patient recently had a nerve conduction test and was told that his muscles are deteriorating. He is in the process of being further evaluated by his neurologist for this. Source of History: patient Onset: a week ago Position: other (generalized) Quality: other (bruising) Associated Symptoms: No fevers, No chills, No nausea, No vomiting, No abdominal pain Note: Pt denies any recent falls Review of Systems See HPI for pertinent positives and negatives. A total of ten systems were reviewed and were otherwise negative. Past Medical & Surgical Medical Problems: (1) YOLA (acute kidney injury) (2) Anxiety (3) ARF (acute renal failure) (4) Asthma (5) Bipolar disorder (6) Chronic pain (7) DM type 2 (diabetes mellitus, type 2) (8) Dyslipidemia (9) GERD (gastroesophageal reflux disease) (10) History of coronary artery disease (11) HTN (hypertension) (12) Intellectual disability (13) Ischemic stroke (14) Nicotine addiction (15) Obesity (16) Opiate abuse, continuous (17) JOSE (obstructive sleep apnea) (18) Suicidal ideation Surgical Problems: (1) History of tonsillectomy and adenoidectomy (2) Hx of reconstruction of anterior cruciate ligament tear (3) S/P left knee arthroscopy Social History Problems: (1) Tobacco use Family History Diabetes mellitus FH: cancer FH: lung disease FH: migraines MOTHER FHx: gallbladder disease FHx: heart disease Hypertension Kidney disease Kidney stones Social History Smoking Status: Never Smoker Alcohol Use: none Drug Use: none Marital Status: Housing Status: lives alone Occupation Status: disabled Current/Historical Medications Scheduled Aspirin (Aspirin Ec), 81 MG PO QAM Atorvastatin (Atorvastatin Calcium), 40 MG PO QAM Budesonide/Formoterol Fumarate (Symbicort 160/4.5 Inhaler), 2 PUFFS INH BID Clopidogrel Bisulfate (Clopidogrel), 75 MG PO QAM Econazole Nitrate (Econazole Nitrate), 1 APPLN TOP BID Fenofibrate (Fenofibrate), 48 MG PO HS Fluticasone Propionate (Fluticasone Propionate), 2 SPRAYS CAROLEE HS Gabapentin (Gabapentin), 400 MG PO TID Metformin HCl (Metformin HCl), 500 MG PO BID Metoprolol Succinate (Metoprolol Succinate ER), 50 MG PO BID Montelukast Sod (Montelukast Sodium), 10 MG PO QAM Oxycodone Hcl (Oxycodone Hcl), 15 MG PO 5XD Pantoprazole (Pantoprazole Sodium), 40 MG PO QAM Quetiapine Fumarate (Quetiapine Fumarate), 150 MG PO HS Tamsulosin HCl (Tamsulosin HCl), 0.4 MG PO QAM Topiramate (Topiramate), 25 MG PO UD Trazodone HCl (Trazodone HCl), 150 MG PO HS Scheduled PRN Docusate Sodium (Stool Softener), 100 MG PO TID PRN for Constipation Allergies Coded Allergies: Hydrocodone (Verified Allergy, Unknown, hives, itching, 08/24/17) Tramadol (Unverified Adverse Reaction, Unknown, VOMITING, 08/24/17) Physical Exam Vital Signs Date Time Temp Pulse Resp B/P (MAP) Pulse Ox O2 Delivery O2 Flow Rate FiO2 08/24/17 21:49 Room Air 08/24/17 21:02 76 18 158/98 98 Room Air 08/24/17 19:33 37.5 74 18 148/93 100 Room Air Physical Exam GENERAL: Awake, alert, slightly slurred speech, in no distress HENT: Normocephalic, atraumatic. Oropharynx unremarkable. Dry MM. EYES: Normal conjunctiva. Sclera non-icteric. NECK: Supple. No nuchal rigidity. FROM. No JVD. RESPIRATORY: Clear to auscultation. CARDIAC: Regular rate, normal rhythm. Extremities warm and well perfused. Pulses equal. ABDOMEN: Soft, non-distended. No tenderness to palpation. No rebound or guarding. No masses. RECTAL: Deferred. MUSCULOSKELETAL: Chest examination reveals no tenderness. The back is symmetrical on inspection without obvious abnormality. There is no CVA tenderness to palpation. No joint edema. LOWER EXTREMITIES: Calves are equal size bilaterally and non-tender. No edema. No discoloration. NEURO: Normal sensorium. Sensory/motor at baseline. SKIN: No rash or jaundice noted. Scattered contusions throughout body particularly on right upper arm and right medial thigh. Medical Decision & Procedures Laboratory Results 08/24/17 20:48 Red Blood Count 4.04, Mean Corpuscular Volume 87.4, Mean Corpuscular Hemoglobin 29.7, Mean Corpuscular Hemoglobin Concent 34.0, Mean Platelet Volume 9.4, Neutrophils (%) (Auto) 61.8, Lymphocytes (%) (Auto) 27.8, Monocytes (%) (Auto) 6.5, Eosinophils (%) (Auto) 2.9, Basophils (%) (Auto) 0.6, Neutrophils # (Auto) 4.20, Lymphocytes # (Auto) 1.89, Monocytes # (Auto) 0.44, Eosinophils # (Auto) 0.20, Basophils # (Auto) 0.04 08/24/17 20:48 Test 08/24/17 20:48 White Blood Count 6.80 K/uL (4.8-10.8) Red Blood Count 4.04 M/uL (4.7-6.1) Hemoglobin 12.0 g/dL (14.0-18.0) Hematocrit 35.3 % (42-52) Mean Corpuscular Volume 87.4 fL (80-100) Mean Corpuscular Hemoglobin 29.7 pg (25-34) Mean Corpuscular Hemoglobin Concent 34.0 g/dl (32-36) Platelet Count 262 K/uL (130-400) Mean Platelet Volume 9.4 fL (7.4-10.4) Neutrophils (%) (Auto) 61.8 % Lymphocytes (%) (Auto) 27.8 % Monocytes (%) (Auto) 6.5 % Eosinophils (%) (Auto) 2.9 % Basophils (%) (Auto) 0.6 % Neutrophils # (Auto) 4.20 K/uL (1.4-6.5) Lymphocytes # (Auto) 1.89 K/uL (1.2-3.4) Monocytes # (Auto) 0.44 K/uL (0.11-0.59) Eosinophils # (Auto) 0.20 K/uL (0-0.5) Basophils # (Auto) 0.04 K/uL (0-0.2) RDW Standard Deviation 43.2 fL (36.4-46.3) RDW Coefficient of Variation 13.5 % (11.5-14.5) Immature Granulocyte % (Auto) 0.4 % Immature Granulocyte # (Auto) 0.03 K/uL (0.00-0.02) Prothrombin Time 9.9 SECONDS (9.0-12.0) Prothromb Time International Ratio 0.9 (0.9-1.1) Activated Partial Thromboplast Time 28.0 SECONDS (21.0-31.0) Partial Thromboplastin Ratio 1.1 Anion Gap 7.0 mmol/L (3-11) Est Creatinine Clear Calc Drug Dose 84.7 ml/min Estimated GFR () 70.8 Estimated GFR (Non- 61.1 BUN/Creatinine Ratio 16.5 (10-20) Calcium Level 8.5 mg/dl (8.5-10.1) Total Bilirubin 0.4 mg/dl (0.2-1) Direct Bilirubin < 0.1 mg/dl (0-0.2) Aspartate Amino Transf (AST/SGOT) 15 U/L (15-37) Alanine Aminotransferase (ALT/SGPT) 18 U/L (12-78) Alkaline Phosphatase 78 U/L (45-117) Total Protein 7.1 gm/dl (6.4-8.2) Albumin 4.0 gm/dl (3.4-5.0) Laboratory results reviewed by me ED Course 2015: The patient was evaluated in room A2. A complete history and physical exam was performed. 2155: I reassessed the patient and updated him on his test results. 2245: I reevaluated the patient. Discussed results and discharge instructions: He verbalized understanding and agreement. The patient is ready for discharge. Medical Decision I reviewed the patient's past medical history, medications, and the nursing notes as described above. Differential diagnoses: thrombocytopenia platelet dysfunction, coagulopathy, adverse medication effect The patient is a 42 y/o man with a pmhx of CVA on plavix presents to the ED with worsening recurrent bruising per HPI. On arrival the patient is in NAD, AFVSS. Denies any CP, SOB, n/v, abd/pain, bloody or black stools. Has scattered contusions. Labs unremarkable. including Platelets 200s, coags wnl. Patient does have a h/o of renal failure but unclear if may play a role in patient's bruising. Given patient is otherwise asymptomatic, emergent process not likely. Findings and plan for follow-up reviewed patient. Patient agreeable and d/c'd per discharge instructions. Medication Reconcilliation Current Medication List: was personally reviewed by me Blood Pressure Screening Patient's blood pressure: Elevated blood pressure Blood pressure disposition: Elevated BP felt to be situational Impression Primary Impression: Contusion Scribe Attestation The scribe's documentation has been prepared under my direction and personally reviewed by me in its entirety. I confirm that the note above accurately reflects all work, treatment, procedures, and medical decision making performed by me. Departure Information Dispostion Home / Self-Care Referrals Thea Cortes M.D. (PCP) Forms HOME CARE DOCUMENTATION FORM, IMPORTANT VISIT INFORMATION, WORK / SCHOOL INSTRUCTIONS Patient Instructions Bruises Contusions, My [facility] Additional Instructions Please follow up with your primary care physician in the next 1-3 days for re- evaluation. Your symptoms are likely due to your Plavix which inhibits platelet function. With your history of kidney disease, the adverse effects of bruising from Plavix may be amplified. You should follow-up with her doctor to discuss use of Plavix or other agents given her history of stroke. You should also consider being referred to a ice guard skating rink if your bruising persists as Kidney disease can sometimes result in poor platelet function. Otherwise, your exam and lab results did not show signs of an emergent condition at this time. Given that you do not want to take your Plavix at this time, you should try taking 4 baby aspirins until you can see your doctor for further recommendations. Return to the emergency department for worsening symptoms as described in the accompanying instructions.
[2017-08-24 21:02] VITALS: BP 158/98; PULSE 76; O2SAT 98
[2017-08-24 21:19] LABS: ALT/SGPT 18 U/L (12-78); BLOOD UREA NITROGEN 23 mg/dl (7-18); BUN/CREATININE RATIO 16.5 (10-20); CALCIUM 8.5 mg/dl (8.5-10.1); CARBON DIOXIDE 24 mmol/L (21-32); CHLORIDE 106 mmol/L (98-107); GLUCOSE 166 mg/dl (70-99); POTASSIUM 3.8 mmol/L (3.5-5.1); SODIUM 137 mmol/L (136-145)
[2017-08-24 21:22] LABS: ALKALINE PHOSPHATASE 78 U/L (45-117); AST/SGOT 15 U/L (15-37)
[2017-08-24 21:23] LABS: INR 0.9 (0.9-1.1); PARTIAL THROMBOPLASTIN RATIO 1.1; PROTHROMBIN TIME (PATIENT) 9.9 SECONDS (9.0-12.0)
[2017-08-24 21:40] LABS: BASO % 0.6 %; BASO ABS # 0.04 K/uL (0-0.2); COMPLETE YES; EOS % 2.9 %; HEMATOCRIT 35.3 % (42-52); IG% 0.4 %; LYMPH % 27.8 %; LYMPH ABS # 1.89 K/uL (1.2-3.4); MEAN CELL VOLUME 87.4 fL (80-100); MEAN CORPUSCULAR HEMOGLOBIN 29.7 pg (25-34); MEAN PLATELET VOLUME 9.4 fL (7.4-10.4); MONO % 6.5 %; NEUT % 61.8 %; PLATELET COUNT 262 K/uL (130-400); RED BLOOD COUNT 4.04 M/uL (4.7-6.1)
[2017-08-24 21:49] VITALS: Ht 175.3 cm; Wt 114.0 kg
== END 2017-08-24 22:57 | disposition home or self-care (01) ==
LOC: C.EDB 19:25 → C.EDA 22:57
DX: S40.021A Contusion of right upper arm, initial encounter (principal); X58.XXXA Exposure to other specified factors, initial encounter; I12.9 Hypertensive chronic kidney disease with stage 1 through stage 4 chronic kidney disease, or unspecified chronic kidney disease; N18.9 Chronic kidney disease, unspecified; E11.9 Type 2 diabetes mellitus without complications; E78.5 Hyperlipidemia, unspecified; K21.9 Gastro-esophageal reflux disease without esophagitis; I25.10 Atherosclerotic heart disease of native coronary artery without angina pectoris; G89.29 Other chronic pain; F31.9 Bipolar disorder, unspecified; F41.9 Anxiety disorder, unspecified; G47.33 Obstructive sleep apnea (adult) (pediatric); J45.909 Unspecified asthma, uncomplicated; F17.200 Nicotine dependence, unspecified, uncomplicated; Z86.73 Personal history of transient ischemic attack (TIA), and cerebral infarction without residual deficits; Z87.828 Personal history of other (healed) physical injury and trauma; Z79.82 Long term (current) use of aspirin; Z79.84 Long term (current) use of oral hypoglycemic drugs; Z79.899 Other long term (current) drug therapy; Z88.5 Allergy status to narcotic agent; Z88.8 Allergy status to other drugs, medicaments and biological substances; Z83.3 Family history of diabetes mellitus; Z80.9 Family history of malignant neoplasm, unspecified; Z83.79 Family history of other diseases of the digestive system; Z82.49 Family history of ischemic heart disease and other diseases of the circulatory system; Z84.1 Family history of disorders of kidney and ureter

== ENCOUNTER 2018-01-13 19:38 | Inpatient (IN) | payer OTHER ==
[~2018-01-13] VITALS: Ht 175.3 cm; Wt 112.3 kg
[~2018-01-13 19:38] MED LIST changes: -DOCU100T7 PO; -DSY/150 PO; -FLNIN/ NAE; -GLC500 PO; -LPT40 PO; -NRN400 PO; -OXY/15 PO; -PRT/40 PO; -SNG10 PO; -SRQ100 PO; -SYMIN160 INH; -TPM25 PO; -TRC48 PO
[2018-01-13] MEDS ORDERED: ALBUT/IPRATROP 3MG/0.5MG NEB 3 ML VIAL INH STA (19:51)
[2018-01-13] MEDS ORDERED: PIPERACILL/TAZOBAC IV 4.5 GM in DEXTROSE 5% 100ML 100 ML IV STA (19:51)
[2018-01-13] MEDS ORDERED: LEVOFLOXACIN / D5W 750 MG in PREMIXED IN D5W 150 ML IV STA (19:51)
[2018-01-13] MEDS ORDERED: SODIUM CHLORIDE 0.9% 1000ML 3,000 ML IV STA (19:51)
[2018-01-13] MEDS ORDERED: LEVAQUIN 750MG / 150ML D5W ONE (20:00)
[2018-01-13] MEDS ORDERED: PIPERACILLIN/TAZOBACTAM 4.5 GM/100ML D5W ONE (20:01)
[2018-01-13 20:06] LABS: HEMATOCRIT 37.7 % (42-52); HEMOGLOBIN 12.6 g/dL (14.0-18.0); MEAN CELL VOLUME 89.1 fL (80-100); MEAN CORPUSCULAR HEMOGLOBIN 29.8 pg (25-34); MEAN CORPUSCULAR HGB CONC 33.4 g/dl (32-36); PLATELET COUNT 193 K/uL (130-400); RED CELL DISTRIBUTION WIDTH CV 13.4 % (11.5-14.5); RED CELL DISTRIBUTION WIDTH SD 43.7 fL (36.4-46.3); WHITE BLOOD COUNT 9.82 K/uL (4.8-10.8)
[2018-01-13 20:16] LABS: PTT PATIENT 26.8 SECONDS (21.0-31.0)
[2018-01-13 20:26] LABS: ALBUMIN 3.5 gm/dl (3.4-5.0); ALT/SGPT 18 U/L (12-78); AST/SGOT 11 U/L (15-37); BLOOD UREA NITROGEN 24 mg/dl (7-18); CALCIUM 8.2 mg/dl (8.5-10.1); CARBON DIOXIDE 24 mmol/L (21-32); CREATININE 1.48 mg/dl (0.60-1.40); GLUCOSE 171 mg/dl (70-99); LIPASE 41 U/L (73-393); POTASSIUM 4.1 mmol/L (3.5-5.1); SODIUM 139 mmol/L (136-145)
[2018-01-13 20:31] LABS: ALKALINE PHOSPHATASE 68 U/L (45-117); BASO % 0.2 %; BASO ABS # 0.02 K/uL (0-0.2); CKMB < 0.5 ng/ml (0.5-3.6); EOS % 0.3 %; EOS ABS # 0.03 K/uL (0-0.5); IG# 0.02 K/uL (0.00-0.02); LYMPH % 7.7 %; LYMPH ABS # 0.76 K/uL (1.2-3.4); MONO % 6.3 %; MONO ABS # 0.62 K/uL (0.11-0.59); NEUT % 85.3 %; NEUT ABS # 8.37 K/uL (1.4-6.5); TOTAL PROTEIN 6.9 gm/dl (6.4-8.2)
[2018-01-13] MEDS ORDERED: DOCU100T7 PO (20:42)
--- NOTE | 2018-01-13 20:57 | DIAGNOSTIC IMAGING REPORT ---
CHEST ONE VIEW PORTABLE HISTORY: Evaluate Fever/Sepsis COMPARISON: Chest 07/26/2017. FINDINGS: No pleural effusions. No pneumothorax. The patient is slightly rotated on this study. There are low lung volumes. Right greater than left perihilar interstitial and vascular thickening with a right perihilar hazy airspace opacity. The heart is mildly enlarged. IMPRESSION: Cardiomegaly with interstitial and vascular thickening and a right perihilar hazy airspace opacity. This favors asymmetric pulmonary edema. However, a right-sided pneumonia could also have a similar appearance. Electronically signed by: Avila Carney M.D. 01/13/2018 8:56 PM Dictated Date/Time: 01/13/2018 8:54 PM
[2018-01-13 21:01] LABS: INFLUENZA B ANTIGEN Neg for Influ B (NEG)
[2018-01-13] MEDS ORDERED: MTR800 PEG (21:12)
[2018-01-13] MEDS ORDERED: CYM/30 PO (21:12)
[2018-01-13] MEDS ORDERED: TPRSR/100 PO (21:12)
[2018-01-13] MEDS ORDERED: ACET650T97 PO (21:12)
[2018-01-13] MEDS ORDERED: TPM25 PO (21:29)
[2018-01-13] MEDS ORDERED: TRC48 PO (21:29)
[2018-01-13] MEDS ORDERED: QUET-115 PO (21:29)
[2018-01-13] MEDS ORDERED: LPT40 PO (21:29)
[2018-01-13] MEDS ORDERED: OXY/15 PO (21:29)
[2018-01-13] MEDS ORDERED: GLC500 PO (21:29)
[2018-01-13] MEDS ORDERED: SNG10 PO (21:31)
[2018-01-13] MEDS ORDERED: PANT40TA2 PO (21:31)
[2018-01-13] MEDS ORDERED: NRN400 PO (21:34)
[2018-01-13] MEDS ORDERED: DSY/150 PO (21:34)
[2018-01-13] MEDS ORDERED: FLNIN/ NAE (21:35)
--- NOTE | 2018-01-13 21:49 | DIAGNOSTIC IMAGING REPORT ---
HEAD CT NONCONTRAST CT DOSE: 773.57 mGy.cm HISTORY: Evaluate Fever/Sepsis TECHNIQUE: Multiaxial CT images of the head were performed without the use of intravenous contrast. Automated exposure control was utilized for this study. A dose lowering technique was utilized adhering to the principles of ALARA. Comparison: Head CT 07/26/2017. Findings: Mild mucosal thickening within the sphenoid sinuses. Otherwise, the remaining paranasal sinuses and master cells are clear. The calvarium and skull base are intact. No mass, hematoma, midline shift, acute infarct. Old right MCA territory infarct, unchanged. Impression: No significant change compared to the prior study. No acute intracranial abnormality. Old right MCA territory infarct is again noted. Electronically signed by: Avila Carney M.D. 01/13/2018 9:47 PM Dictated Date/Time: 01/13/2018 9:42 PM
[2018-01-13] MEDS ORDERED: SYMIN160 INH (22:40)
[2018-01-14] VITALS (9 sets, daily range): BP systolic 102–163; BP diastolic 62–82; PULSE 67–82; TEMP 36.5–37; O2SAT 91–98; Ht 175.3 cm; Wt 112.3 kg
--- NOTE | 2018-01-14 00:22 | EMERGENCY ROOM VISIT NOTE ---
History Report prepared by Hebert: Anita Méndez Under the Supervision of: Dr. Haider Serna D.O. First contact with patient: 19:42 Stated Complaint: FALL, HEADACHE, SEIZURE LIKE ACTIVITY History of Present Illness The patient is a 42 year old male who presents to the Emergency Room with complaints of an episode of fall around 1400 today. The patient presents to the ED by EMS. He had an unwitnessed fall at 1400 today in the bathroom hitting the back of his head. His family told EMS that he has not been acting like himself since the fall. He has been more aggressive and off balance on his feet. The patient has a history of stroke leaving him with left sided deficits. He denies any fever, chills, diaphoresis, cough, SOB, abdominal pain, or leg pain. He does feel fatigued. He reports he has been eating and drinking. He is not on oxygen at home. The patient has a history of diabetes. He is on aspirin and no other blood thinners. He is on trazodone. Source of History: patient, EMS Onset: 1400 today Position: other (global) Quality: other (fall) Timing: other (episodic) Associated Symptoms: + fatigue, No fevers, No chills, No diaphoresis, No cough, No SOB, No abdominal pain Review of Systems See HPI for pertinent positives & negatives. A total of 10 systems reviewed and were otherwise negative. Past Medical & Surgical Medical Problems: (1) YOLA (acute kidney injury) (2) Anxiety (3) ARF (acute renal failure) (4) Asthma (5) Bipolar disorder (6) Chronic pain (7) DM type 2 (diabetes mellitus, type 2) (8) Dyslipidemia (9) GERD (gastroesophageal reflux disease) (10) History of coronary artery disease (11) HTN (hypertension) (12) Intellectual disability (13) Ischemic stroke (14) Nicotine addiction (15) Obesity (16) Opiate abuse, continuous (17) JOSE (obstructive sleep apnea) (18) Pneumonia (19) Suicidal ideation Surgical Problems: (1) History of tonsillectomy and adenoidectomy (2) Hx of reconstruction of anterior cruciate ligament tear (3) S/P left knee arthroscopy Social History Problems: (1) Tobacco use Family History Diabetes mellitus FH: cancer FH: lung disease FH: migraines MOTHER FHx: gallbladder disease FHx: heart disease Hypertension Kidney disease Kidney stones Social History Smoking Status: Never Smoker Occupation Status: disabled Current/Historical Medications Scheduled Aspirin (Aspirin Ec), 81 MG PO QAM Atorvastatin (Lipitor), 40 MG PO QPM Budesonide/Formoterol Fumarate (Symbicort 160/4.5 Inhaler), 2 PUFFS INH BID Clopidogrel Bisulfate (Clopidogrel), 75 MG PO QAM Duloxetine HCl (Cymbalta), 30 MG PO DAILY Fenofibrate (Fenofibrate), 48 MG PO HS Fluticasone Propionate (Fluticasone Propionate), 2 SPRAYS CAROLEE HS Gabapentin (Gabapentin), 400 MG PO TID Metformin HCl (Metformin HCl), 500 MG PO BIDM Metoprolol Succinate (Metoprolol Succinate ER), 100 MG PO BID Montelukast Sod (Montelukast Sodium), 10 MG PO QAM Oxycodone Hcl (Oxycodone Hcl), 15 MG PO 5XD Pantoprazole (Pantoprazole Sodium), 40 MG PO QAM Quetiapine Fumarate (Quetiapine Fumarate), 150 MG PO HS Topiramate (Topiramate), 50 MG PO HS Scheduled PRN Acetaminophen (Tylenol 8 Hour Arthritis), 650 MG PO UD PRN for Pain Docusate Sodium (Stool Softener), 100 MG PO TID PRN for Constipation Ibuprofen (Ibuprofen), 800 MG PEG DAILY PRN for Pain Trazodone HCl (Trazodone HCl), 150 MG PO HS PRN for Sleep Allergies Coded Allergies: Hydrocodone (Verified Allergy, Unknown, hives, itching, 08/24/17) Tramadol (Unverified Adverse Reaction, Unknown, VOMITING, 08/24/17) Physical Exam Vital Signs Date Time Temp Pulse Resp B/P (MAP) Pulse Ox O2 Delivery O2 Flow Rate FiO2 01/13/18 23:01 90 21 137/84 95 Nasal Cannula 3.0 01/13/18 22:34 36.6 89 20 132/80 95 Nasal Cannula 3.0 01/13/18 22:29 90 18 151/117 01/13/18 21:31 96 22 132/84 93 Room Air 01/13/18 20:55 101 22 122/83 95 Nasal Cannula 3.0 01/13/18 20:32 103 01/13/18 19:48 38.5 128 23 142/76 88 Room Air Physical Exam CONSTITUTIONAL/VITAL SIGNS: Reviewed / noted above. GENERAL: Non-toxic in appearance. INTEGUMENTARY: Warm, dry, and [place]. HEAD: Normocephalic. EYES: without scleral icterus or trauma. ENT/OROPHARYNX: clear and moist. LYMPHADENOPATHY/NECK: Is supple without lymphadenopathy or meningismus. RESPIRATORY: Decreased breath sounds bilaterally. CARDIOVASCULAR: Tachycardic rate and regular rhythm. GI/ABDOMEN: Soft and nontender. No organomegaly or pulsatile mass. No rebound or guarding. Normal bowel sounds. EXTREMITIES: Warm and well perfused. BACK: No CVA tenderness. NEUROLOGICAL: Drowsy, generalized weakness left side slightly greater than right. PSYCHIATRIC: normal affect. MUSCULOSKELETAL: Normally developed with good muscle tone. Medical Decision & Procedures ER Provider Diagnostic Interpretation: X ray results and stated below per my interpretation and radiology interpretation. Radiology results as stated below per my review and radiologist interpretation: CHEST ONE VIEW PORTABLE HISTORY: Evaluate Fever/Sepsis COMPARISON: Chest 07/26/2017. FINDINGS: No pleural effusions. No pneumothorax. The patient is slightly rotated on this study. There are low lung volumes. Right greater than left perihilar interstitial and vascular thickening with a right perihilar hazy airspace opacity. The heart is mildly enlarged. IMPRESSION: Cardiomegaly with interstitial and vascular thickening and a right perihilar hazy airspace opacity. This favors asymmetric pulmonary edema. However, a right-sided pneumonia could also have a similar appearance. Electronically signed by: Avila Carney M.D. 01/13/2018 8:56 PM Dictated Date/Time: 01/13/2018 8:[address]AST CT DOSE: 773.57 mGy.cm HISTORY: Evaluate Fever/Sepsis TECHNIQUE: Multiaxial CT images of the head were performed without the use of intravenous contrast. Automated exposure control was utilized for this study. A dose lowering technique was utilized adhering to the principles of ALARA. Comparison: Head CT 07/26/2017. Findings: Mild mucosal thickening within the sphenoid sinuses. Otherwise, the remaining paranasal sinuses and master cells are clear. The calvarium and skull base are intact. No mass, hematoma, midline shift, acute infarct. Old right MCA territory infarct, unchanged. Impression: No significant change compared to the prior study. No acute intracranial abnormality. Old right MCA territory infarct is again noted. Electronically signed by: Avila Carney M.D. 01/13/2018 9:47 PM Dictated Date/Time: 01/13/2018 9:42 PM Laboratory Results 01/13/18 19:10 Red Blood Count 4.23, Mean Corpuscular Volume 89.1, Mean Corpuscular Hemoglobin 29.8, Mean Corpuscular Hemoglobin Concent 33.4, Mean Platelet Volume 10.0, Neutrophils (%) (Auto) 85.3, Lymphocytes (%) (Auto) 7.7, Monocytes (%) (Auto) 6.3, Eosinophils (%) (Auto) 0.3, Basophils (%) (Auto) 0.2, Neutrophils # (Auto) 8.37, Lymphocytes # (Auto) 0.76, Monocytes # (Auto) 0.62, Eosinophils # (Auto) 0.03, Basophils # (Auto) 0.02 01/13/18 19:10 Test 01/13/18 19:10 01/13/18 20:05 01/13/18 20:15 01/13/18 20:49 White Blood Count 9.82 K/uL (4.8-10.8) Red Blood Count 4.23 M/uL (4.7-6.1) Hemoglobin 12.6 g/dL (14.0-18.0) Hematocrit 37.7 % (42-52) Mean Corpuscular Volume 89.1 fL (80-100) Mean Corpuscular Hemoglobin 29.8 pg (25-34) Mean Corpuscular Hemoglobin Concent 33.4 g/dl (32-36) Platelet Count 193 K/uL (130-400) Mean Platelet Volume 10.0 fL (7.4-10.4) Neutrophils (%) (Auto) 85.3 % Lymphocytes (%) (Auto) 7.7 % Monocytes (%) (Auto) 6.3 % Eosinophils (%) (Auto) 0.3 % Basophils (%) (Auto) 0.2 % Neutrophils # (Auto) 8.37 K/uL (1.4-6.5) Lymphocytes # (Auto) 0.76 K/uL (1.2-3.4) Monocytes # (Auto) 0.62 K/uL (0.11-0.59) Eosinophils # (Auto) 0.03 K/uL (0-0.5) Basophils # (Auto) 0.02 K/uL (0-0.2) RDW Standard Deviation 43.7 fL (36.4-46.3) RDW Coefficient of Variation 13.4 % (11.5-14.5) Immature Granulocyte % (Auto) 0.2 % Immature Granulocyte # (Auto) 0.02 K/uL (0.00-0.02) Prothrombin Time 10.0 SECONDS (9.0-12.0) Prothromb Time International Ratio 1.0 (0.9-1.1) Activated Partial Thromboplast Time 26.8 SECONDS (21.0-31.0) Partial Thromboplastin Ratio 1.0 Anion Gap 6.0 mmol/L (3-11) Estimated GFR () 66.2 Estimated GFR (Non- 57.1 BUN/Creatinine Ratio 15.9 (10-20) Calcium Level 8.2 mg/dl (8.5-10.1) Total Bilirubin 0.7 mg/dl (0.2-1) Direct Bilirubin 0.2 mg/dl (0-0.2) Aspartate Amino Transf (AST/SGOT) 11 U/L (15-37) Alanine Aminotransferase (ALT/SGPT) 18 U/L (12-78) Alkaline Phosphatase 68 U/L (45-117) Total Creatine Kinase 114 U/L (39-308) Creatine Kinase MB < 0.5 ng/ml (0.5-3.6) Creatine Kinase MB Ratio (0-3.0) Troponin I < 0.015 ng/ml (0-0.045) Total Protein 6.9 gm/dl (6.4-8.2) Albumin 3.5 gm/dl (3.4-5.0) Lipase 41 U/L (73-393) Lactic Acid Level 1.4 mmol/L (0.4-2.0) Influenza Type A Antigen Neg for Influ A (NEG) Influenza Type B Antigen Neg for Influ B (NEG) Arterial Blood pH 7.33 (7.35-7.45) Arterial Blood Partial Pressure CO2 45 mmHg (35-46) Arterial Blood Partial Pressure O2 116 mm/Hg (80-95) Arterial Blood HCO3 23 mmol/L (19-24) Arterial Blood Oxygen Saturation 97.8 % (90-95) Arterial Blood Base Excess -2.7 mEq/L (-9-1.8) Arterial Blood Gas Delivery 4.5 L Kendall Test POS (POS) Laboratory results as stated above per my review. Medications Administered Medications (Trade) Dose Ordered Sig/Ney Route Start Time Stop Time Status Last Admin Dose Admin Sodium Chloride 3,000 ml @ 999 mls/hr Q3H1M STAT IV 01/13/18 19:51 01/13/18 22:51 DC 01/13/18 19:51 999 MLS/HR Albuterol/ Ipratropium (Duoneb) 3 ml NOW STAT INH 01/13/18 19:51 01/13/18 19:54 DC 01/13/18 19:51 3 ML Piperacillin Sod/ Tazobactam Sod 4.5 gm/Dextrose 120 ml @ 200 mls/hr Q6 STAT IV 01/13/18 19:51 01/13/18 20:26 DC 01/13/18 19:51 200 MLS/HR Levofloxacin 750 mg/Prmx 150 ml @ 100 mls/hr Q24H STAT IV 01/13/18 19:51 01/13/18 21:20 DC 01/13/18 19:51 100 MLS/HR ECG Per My Interpretation Indication: altered mental status Rate (beats per minute): 102 Rhythm: sinus tachycardia Findings: no ectopy, other (no ST elevation) ED Course 1942: Previous medical records were reviewed. The patient was evaluated in room C2B. A complete history and physical examination was performed. 1950: Levofloxacin 750 mg/Prmx 150 ml @ 100 mls/hr IV, Piperacillin Sod/ Tazobactam Sod 4.5 gm/Dextrose 120 ml @ 200 mls/hr IV, Duoneb 3 ml INH, Sodium Chloride 3000 ml @ 999 mls/hr IV. 2239: On reevaluation, the patient is stable. I discussed the results and findings with him. He verbalized agreement of the treatment plan. The patient will be evaluated for further management and care. 2256: I discussed the patient's case with Dr. Ahuja, [facility] hospitalist. The patient will be evaluated for further treatment and disposition. Medical Decision Differential includes acute coronary syndrome, myocardial infarction, CVA, TIA, anemia, infection, pneumonia, UTI, pyelonephritis, poor nutrition, dehydration, electrolyte disturbance,hypoglycemia. This is a 42-year-old male who presents to the ED with a chief complaint of altered mental status. The patient has a history of CVA with some residual left -sided weakness. The patient was not acting himself today and seemed to be a little off balance when he was ambulating and seemed more aggressive than usual. The patient was brought in for evaluation. He has a temperature of 38.5 and a heart rate of 113 and saturations of 88% on room air. He does not use home oxygen. His mouth looks dry and exam. He is tachycardic. Breath sounds are diminished. Abdomen soft and nontender. No rashes or extremity irritations. Chest x-ray is suggestive of a right-sided pneumonia. CBC and complete metabolic panel were unremarkable. Cardiac enzymes are normal. EKG shows a sinus tachycardia. Influenza testing was negative. ABG reveals a normal acid-base status with out hypercarbia or significant hypoxia. The patient was treated with IV fluids, DuoNeb treatment, IV Levaquin and IV Zosyn. I spoke with the hospitalist, who will see the patient for further inpatient evaluation and care. Head Trauma GCS Score: 15 Medication Reconcilliation Current Medication List: was personally reviewed by me Blood Pressure Screening Patient's blood pressure: Normal blood pressure Blood pressure disposition: Did not require urgent referral Consults Time Called: 2230 Consulting Physician: Dr. Ahuja [facility] hospitalist Returned Call: [phone] Discussed the patient's case. The patient will be evaluated for further treatment and disposition. Impression Primary Impression: Pneumonia Additional Impression: Hypoxia Scribe Attestation The scribe's documentation has been prepared under my direction and personally reviewed by me in its entirety. I confirm that the note above accurately reflects all work, treatment, procedures, and medical decision making performed by me. Departure Information Dispostion Being Evaluated By Hospitalist Referrals Thea Cortes M.D. (PCP) Problem Qualifiers
[2018-01-14] MEDS ORDERED: ONDANSETRON INJ 2 MG/ML 2 ML VIAL IV PRN (01:00)
[2018-01-14] MEDS ORDERED: ACETAMINOPHEN 325 MG TAB PO PRN (01:00)
[2018-01-14] MEDS ORDERED: GLUCOSE 10 TABS/TUBE PO PRN ×2 (01:00→02:00)
[2018-01-14] MEDS ORDERED: DEXTROSE 50% 50 ML SYR IV PRN ×2 (01:00→02:00)
[2018-01-14] MEDS ORDERED: POLYETHYLENE (MIRALAX) 17 GM PACK PO PRN (01:00)
[2018-01-14] MEDS ORDERED: GLUCOSE 40% GEL 15 GM TUBE PO PRN ×2 (01:00→02:00)
[2018-01-14] MEDS ORDERED: GLUCAGON FOR INJ 1 MG VIAL SQ PRN ×2 (01:00→02:00)
[2018-01-14] MEDS ORDERED: DOCUSATE SODIUM 100 MG CAP PO PRN (01:45)
[2018-01-14] MEDS ORDERED: PIPERACILL/TAZOBAC CONSULT ACTIVE PRN (02:27)
[2018-01-14] MEDS ORDERED: PIPERACILL/TAZOBAC IV 4.5 GM in DEXTROSE 5% 100ML IV SCH (02:30)
[2018-01-14] MEDS: QUETIAPINE FUMARATE 100 MG TAB PO SCH ×2 (02:55→21:56)
[2018-01-14] MEDS: TRAZODONE HCL 50 MG TAB PO SCH ×2 (03:15→21:56)
--- NOTE | 2018-01-14 04:58 | History and Physical ---
History & Physical Date & Time of Service: Jan 14, 2018 at 01:56 Chief Complaint: Pneumonia Primary Care Physician: Thea Cortes M.D. History of Present Illness Source: patient, clinic records, hospital records The patient is a 42-year-old male with developmental delay and multiple medical issues who presents after an episode of mechanical fall and reports of imbalance today he had an unwitnessed fall in the bathroom reportedly hitting the back of his head. He states that his knees got shaky and weak. he also reports falling similarly in the same position 2 weeks ago. He states he has not felt well for 2 weeks. Her ER records his family told EMS that he has not been acting like himself since the fall. He has been more aggressive and off balance on his feet. Patient has a history of stroke leaving him with left- sided deficits. He also states that his left hand spasms on occasion. The patient denies any fevers, chills, cough, shortness of breath, abdominal pain, nausea, vomiting, diarrhea. He does feel fatigued. He reports to be tolerating p.o. He is currently requiring supplemental oxygen which she is not on at home. He denies any sick contacts or recent travel. He denies a history of smoking but states that he lives with a smoker. He denies any history of choking on food or liquids or any aspiration episodes. Past Medical/Surgical History Medical Problems: (1) Anxiety Status: Chronic (2) Asthma Status: Chronic (3) Bipolar disorder Status: Chronic (4) Chronic pain Status: Chronic (5) DM type 2 (diabetes mellitus, type 2) Status: Chronic (6) Dyslipidemia Status: Chronic (7) GERD (gastroesophageal reflux disease) Status: Chronic (8) History of coronary artery disease Status: Chronic (9) HTN (hypertension) Status: Chronic (10) Ischemic stroke Permanent Comment: with residual left hemiparesis Status: Resolved (11) Nicotine addiction Status: Chronic (12) Obesity Status: Chronic (13) JOSE (obstructive sleep apnea) Status: Chronic Surgical Problems: (1) History of tonsillectomy and adenoidectomy Status: Resolved (2) Hx of reconstruction of anterior cruciate ligament tear Status: Resolved (3) S/P left knee arthroscopy Status: Resolved Social History Problems: (1) Tobacco use Status: Chronic Family History Diabetes mellitus FH: cancer FH: lung disease FH: migraines MOTHER FHx: gallbladder disease FHx: heart disease Hypertension Kidney disease Kidney stones Social History Smoking Status: Never Smoker Smokeless Tobacco Use: Yes Alcohol Use: none Drug Use: none Marital Status: single Housing status: lives with friends Occupational Status: disabled Immunizations History of Influenza Vaccine: Yes Influenza Vaccine Date: Aug 25, 2012 History of Tetanus Vaccine?: Yes Tetanus Immunization Date: Aug 12, 1992 History of Pneumococcal: Yes Pneumococcal Date: Aug 09, 2006 History of Hepatitis B Vaccine: Unknown Allergies Coded Allergies: Hydrocodone (Verified Allergy, Unknown, hives, itching, 08/24/17) Tramadol (Unverified Adverse Reaction, Unknown, VOMITING, 08/24/17) Home Medications Scheduled Aspirin (Aspirin Ec), 81 MG PO QAM Atorvastatin (Lipitor), 40 MG PO QPM Budesonide/Formoterol Fumarate (Symbicort 160/4.5 Inhaler), 2 PUFFS INH BID Duloxetine HCl (Cymbalta), 30 MG PO DAILY Fenofibrate (Fenofibrate), 48 MG PO HS Fluticasone Propionate (Fluticasone Propionate), 2 SPRAYS CAROLEE HS Gabapentin (Gabapentin), 400 MG PO TID Metformin HCl (Metformin HCl), 500 MG PO BIDM Metoprolol Succinate (Metoprolol Succinate ER), 100 MG PO BID Montelukast Sod (Montelukast Sodium), 10 MG PO QAM Oxycodone Hcl (Oxycodone Hcl), 15 MG PO 5XD Pantoprazole (Pantoprazole Sodium), 40 MG PO QAM Quetiapine Fumarate (Quetiapine Fumarate), 150 MG PO HS Topiramate (Topiramate), 50 MG PO HS Scheduled PRN Acetaminophen (Tylenol 8 Hour Arthritis), 650 MG PO UD PRN for Pain Docusate Sodium (Stool Softener), 100 MG PO TID PRN for Constipation Ibuprofen (Ibuprofen), 800 MG PEG DAILY PRN for Pain Trazodone HCl (Trazodone HCl), 150 MG PO HS PRN for Sleep Review of Systems At least 10 systems were reviewed and negative except as indicated in HPI. Physical Exam Vital Signs Date Time Temp Pulse Resp B/P (MAP) Pulse Ox O2 Delivery O2 Flow Rate FiO2 01/14/18 00:10 37.0 79 22 117/65 95 Nasal Cannula 3.5 01/13/18 23:54 88 19 128/83 95 01/13/18 23:31 88 19 128/83 95 Nasal Cannula 3.0 01/13/18 23:01 90 21 137/84 95 Nasal Cannula 3.0 01/13/18 22:34 36.6 89 20 132/80 95 Nasal Cannula 3.0 01/13/18 22:29 90 18 151/117 01/13/18 21:31 96 22 132/84 93 Room Air 01/13/18 20:55 101 22 122/83 95 Nasal Cannula 3.0 01/13/18 20:32 103 01/13/18 19:48 38.5 128 23 142/76 88 Room Air General Appearance: WD/WN, no apparent distress Head: normocephalic, atraumatic Eyes: normal inspection, PERRL, sclerae normal ENT: hearing grossly normal, pharynx normal Neck: supple, no adenopathy, trachea midline Respiratory/Chest: chest non-tender, lungs clear, normal breath sounds, no respiratory distress, no accessory muscle use Cardiovascular: regular rate, rhythm, no edema, no gallop, no JVD, no murmur, normal peripheral pulses Abdomen/GI: normal bowel sounds, non tender, soft Extremities/Musculoskelatal: normal inspection, no calf tenderness, no pedal edema Neurologic/Psych: no motor/sensory deficits, alert, normal mood/affect, oriented x 3 Skin: normal color, warm/dry Diagnostics Laboratory Results 01/13/18 19:10 Red Blood Count 4.23, Mean Corpuscular Volume 89.1, Mean Corpuscular Hemoglobin 29.8, Mean Corpuscular Hemoglobin Concent 33.4, Mean Platelet Volume 10.0, Neutrophils (%) (Auto) 85.3, Lymphocytes (%) (Auto) 7.7, Monocytes (%) (Auto) 6.3, Eosinophils (%) (Auto) 0.3, Basophils (%) (Auto) 0.2, Neutrophils # (Auto) 8.37, Lymphocytes # (Auto) 0.76, Monocytes # (Auto) 0.62, Eosinophils # (Auto) 0.03, Basophils # (Auto) 0.02 01/13/18 19:10 Test 01/13/18 19:10 01/13/18 20:05 01/13/18 20:15 01/13/18 20:49 White Blood Count 9.82 K/uL (4.8-10.8) Red Blood Count 4.23 M/uL (4.7-6.1) Hemoglobin 12.6 g/dL (14.0-18.0) Hematocrit 37.7 % (42-52) Mean Corpuscular Volume 89.1 fL (80-100) Mean Corpuscular Hemoglobin 29.8 pg (25-34) Mean Corpuscular Hemoglobin Concent 33.4 g/dl (32-36) Platelet Count 193 K/uL (130-400) Mean Platelet Volume 10.0 fL (7.4-10.4) Neutrophils (%) (Auto) 85.3 % Lymphocytes (%) (Auto) 7.7 % Monocytes (%) (Auto) 6.3 % Eosinophils (%) (Auto) 0.3 % Basophils (%) (Auto) 0.2 % Neutrophils # (Auto) 8.37 K/uL (1.4-6.5) Lymphocytes # (Auto) 0.76 K/uL (1.2-3.4) Monocytes # (Auto) 0.62 K/uL (0.11-0.59) Eosinophils # (Auto) 0.03 K/uL (0-0.5) Basophils # (Auto) 0.02 K/uL (0-0.2) RDW Standard Deviation 43.7 fL (36.4-46.3) RDW Coefficient of Variation 13.4 % (11.5-14.5) Immature Granulocyte % (Auto) 0.2 % Immature Granulocyte # (Auto) 0.02 K/uL (0.00-0.02) Prothrombin Time 10.0 SECONDS (9.0-12.0) Prothromb Time International Ratio 1.0 (0.9-1.1) Activated Partial Thromboplast Time 26.8 SECONDS (21.0-31.0) Partial Thromboplastin Ratio 1.0 Anion Gap 6.0 mmol/L (3-11) Estimated GFR () 66.2 Estimated GFR (Non- 57.1 BUN/Creatinine Ratio 15.9 (10-20) Calcium Level 8.2 mg/dl (8.5-10.1) Total Bilirubin 0.7 mg/dl (0.2-1) Direct Bilirubin 0.2 mg/dl (0-0.2) Aspartate Amino Transf (AST/SGOT) 11 U/L (15-37) Alanine Aminotransferase (ALT/SGPT) 18 U/L (12-78) Alkaline Phosphatase 68 U/L (45-117) Total Creatine Kinase 114 U/L (39-308) Creatine Kinase MB < 0.5 ng/ml (0.5-3.6) Creatine Kinase MB Ratio (0-3.0) Troponin I < 0.015 ng/ml (0-0.045) Total Protein 6.9 gm/dl (6.4-8.2) Albumin 3.5 gm/dl (3.4-5.0) Lipase 41 U/L (73-393) Lactic Acid Level 1.4 mmol/L (0.4-2.0) Influenza Type A Antigen Neg for Influ A (NEG) Influenza Type B Antigen Neg for Influ B (NEG) Arterial Blood pH 7.33 (7.35-7.45) Arterial Blood Partial Pressure CO2 45 mmHg (35-46) Arterial Blood Partial Pressure O2 116 mm/Hg (80-95) Arterial Blood HCO3 23 mmol/L (19-24) Arterial Blood Oxygen Saturation 97.8 % (90-95) Arterial Blood Base Excess -2.7 mEq/L (-9-1.8) Arterial Blood Gas Delivery 4.5 L Kendall Test POS (POS) Test 01/14/18 01:00 01/14/18 03:21 Urine Color YELLOW Urine Appearance CLEAR (CLEAR) Urine pH 5.5 (4.5-7.5) Urine Specific [place] 1.023 (1.000-1.030) Urine Protein NEG (NEG) Urine Glucose (UA) 1+ (NEG) Urine Ketones NEG (NEG) Urine Occult Blood NEG (NEG) Urine Nitrite NEG (NEG) Urine Bilirubin NEG (NEG) Urine Urobilinogen NEG (NEG) Urine Leukocyte Esterase NEG (NEG) Urine WBC (Auto) 0 /hpf (0-5) Urine RBC (Auto) 0-4 /hpf (0-4) Urine Hyaline Casts (Auto) 0 /lpf (0-5) Urine Epithelial Cells (Auto) 0-5 /lpf (0-5) Urine Bacteria (Auto) NEG (NEG) Bedside Glucose 97 mg/dl (70-99) Date/Time Source Procedure Growth Status 01/13/18 20:15 Blood Blood Culture Pending Received Results Past 24 Hours Test 01/13/18 19:10 01/13/18 20:05 01/13/18 20:15 01/13/18 20:49 Range/Units White Blood Count 9.82 4.8-10.8 K/uL Red Blood Count 4.23 4.7-6.1 M/uL Hemoglobin 12.6 14.0-18.0 g/dL Hematocrit 37.7 42-52 % Mean Corpuscular Volume 89.1 80-100 fL Mean Corpuscular Hemoglobin 29.8 25-34 pg Mean Corpuscular Hemoglobin Concent 33.4 32-36 g/dl Platelet Count 193 130-400 K/uL Mean Platelet Volume 10.0 7.4-10.4 fL Neutrophils (%) (Auto) 85.3 % Lymphocytes (%) (Auto) 7.7 % Monocytes (%) (Auto) 6.3 % Eosinophils (%) (Auto) 0.3 % Basophils (%) (Auto) 0.2 % Neutrophils # (Auto) 8.37 1.4-6.5 K/uL Lymphocytes # (Auto) 0.76 1.2-3.4 K/uL Monocytes # (Auto) 0.62 0.11-0.59 K/uL Eosinophils # (Auto) 0.03 0-0.5 K/uL Basophils # (Auto) 0.02 0-0.2 K/uL RDW Standard Deviation 43.7 36.4-46.3 fL RDW Coefficient of Variation 13.4 11.5-14.5 % Immature Granulocyte % (Auto) 0.2 % Immature Granulocyte # (Auto) 0.02 0.00-0.02 K/uL Prothrombin Time 10.0 9.0-12.0 SECONDS Prothromb Time International Ratio 1.0 0.9-1.1 Activated Partial Thromboplast Time 26.8 21.0-31.0 SECONDS Partial Thromboplastin Ratio 1.0 Sodium Level 139 136-145 mmol/L Potassium Level 4.1 3.5-5.1 mmol/L Chloride Level 109 98-107 mmol/L Carbon Dioxide Level 24 21-32 mmol/L Anion Gap 6.0 3-11 mmol/L Blood Urea Nitrogen 24 7-18 mg/dl Creatinine 1.48 0.60-1.40 mg/dl Estimated GFR () 66.2 Estimated GFR (Non- 57.1 BUN/Creatinine Ratio 15.9 10-20 Random Glucose 171 70-99 mg/dl Calcium Level 8.2 8.5-10.1 mg/dl Total Bilirubin 0.7 0.2-1 mg/dl Direct Bilirubin 0.2 0-0.2 mg/dl Aspartate Amino Transf (AST/SGOT) 11 15-37 U/L Alanine Aminotransferase (ALT/SGPT) 18 12-78 U/L Alkaline Phosphatase 68 45-117 U/L Total Creatine Kinase 114 39-308 U/L Creatine Kinase MB < 0.5 0.5-3.6 ng/ml Creatine Kinase MB Ratio 0-3.0 Troponin I < 0.015 0-0.045 ng/ml Total Protein 6.9 6.4-8.2 gm/dl Albumin 3.5 3.4-5.0 gm/dl Lipase 41 73-393 U/L Lactic Acid Level 1.4 0.4-2.0 mmol/L Influenza Type A Antigen Neg for Influ A NEG Influenza Type B Antigen Neg for Influ B NEG Arterial Blood pH 7.33 7.35-7.45 Arterial Blood Partial Pressure CO2 45 35-46 mmHg Arterial Blood Partial Pressure O2 116 80-95 mm/Hg Arterial Blood HCO3 23 19-24 mmol/L Arterial Blood Oxygen Saturation 97.8 90-95 % Arterial Blood Base Excess -2.7 -9-1.8 mEq/L Arterial Blood Gas Delivery 4.5 L Kendall Test POS POS Test 01/14/18 01:00 Range/Units Urine Color YELLOW Urine Appearance CLEAR CLEAR Urine pH 5.5 4.5-7.5 Urine Specific [place] 1.023 1.000-1.030 Urine Protein NEG NEG Urine Glucose (UA) 1+ NEG Urine Ketones NEG NEG Urine Occult Blood NEG NEG Urine Nitrite NEG NEG Urine Bilirubin NEG NEG Urine Urobilinogen NEG NEG Urine Leukocyte Esterase NEG NEG Urine WBC (Auto) 0 0-5 /hpf Urine RBC (Auto) 0-4 0-4 /hpf Urine Hyaline Casts (Auto) 0 0-5 /lpf Urine Epithelial Cells (Auto) 0-5 0-5 /lpf Urine Bacteria (Auto) NEG NEG Microbiology Results 01/13/18 Blood Culture, Received Pending 01/13/18 Blood Culture, Received Pending Diagnostic Radiology CHEST ONE VIEW PORTABLE HISTORY: Evaluate Fever/Sepsis COMPARISON: Chest 07/26/2017. FINDINGS: No pleural effusions. No pneumothorax. The patient is slightly rotated on this study. There are low lung volumes. Right greater than left perihilar interstitial and vascular thickening with a right perihilar hazy airspace opacity. The heart is mildly enlarged. IMPRESSION: Cardiomegaly with interstitial and vascular thickening and a right perihilar hazy airspace opacity. This favors asymmetric pulmonary edema. However, a right-sided pneumonia could also have a similar appearance. HEAD CT NONCONTRAST CT DOSE: 773.57 mGy.cm HISTORY: Evaluate Fever/Sepsis TECHNIQUE: Multiaxial CT images of the head were performed without the use of intravenous contrast. Automated exposure control was utilized for this study. A dose lowering technique was utilized adhering to the principles of ALARA. Comparison: Head CT 07/26/2017. Findings: Mild mucosal thickening within the sphenoid sinuses. Otherwise, the remaining paranasal sinuses and master cells are clear. The calvarium and skull base are intact. No mass, hematoma, midline shift, acute infarct. Old right MCA territory infarct, unchanged. Impression: No significant change compared to the prior study. No acute intracranial abnormality. Old right MCA territory infarct is again noted. EKG ST 102 Impression Assessment and Plan 42-year-old male with mechanical fall and weakness found to have right-sided pneumonia. 1. Community-acquired pneumonia-patient is around secondary smoke CXR reveals interstitial and vascular thickening and a right perihilar hazy airspace opacity consistent with asymmetric pulmonary edema versus right-sided pneumonia. No history of heart failure. He is otherwise relatively asymptomatic, but did report waking up a few mornings feeling like he was wheezing. Lung exam is normal. Zosyn was started pending cultures. Covering broadly as patient is poor historian, taper based on clinical response and culture results which are pending. 2. Hypoxia-likely secondary to #1. Plan as above. 3. Diabetes type 2-insulin sliding scale with carb coverage and Lantus while hospitalized. 4. CAD-stable continue medical management with aspirin Lipitor and metoprolol. 5. Chronic pain-continue oxycodone 5 times daily, Cymbalta, gabapentin. 6. Bipolar disorder-continue Seroquel in the evenings. 7. Elevated creatinine-no h/o CKD, appears to be at baseline. Of note, body habitus is large and muscular. DVT proph-Lovenox Full Code Dispo-telemetry Pascale Ahuja DO [facility] Hospitalist Advanced Directives Existing Living Will: No Existing Power of Cv/Cvn Cv Tsc System Operator: Yes Resuscitation Status VTE Prophylaxis Will order VTE Prophylaxis: Yes
[2018-01-14] MEDS: INSULIN ASPART 100 UNITS/ML 3 ML PEN SC SCH ×4 (06:30→21:00)
[2018-01-14] MEDS: ENOXAPARIN 40 MG/0.4 ML SYR SC SCH (08:08)
[2018-01-14] MEDS: BUDESONIDE/FORMOTEROL FUMARATE 160/4.5 60 PUFFS/INHALER INH SCH ×2 (08:09→21:54)
[2018-01-14] MEDS: PANTOprazole SOD 40 MG TAB PO SCH (08:10)
[2018-01-14] MEDS: DULOXETINE (CYMBALTA) 30 MG CAP PO SCH (08:10)
[2018-01-14] MEDS: ASPIRIN 81 MG ECTAB PO SCH (08:10)
[2018-01-14] MEDS: MONTELUKAST SOD 10 MG TAB PO SCH (08:10)
[2018-01-14] MEDS: METOPROLOL SUCC 50MG EXT REL TAB PO SCH ×2 (08:10→21:58)
[2018-01-14] MEDS: GABAPENTIN 400 MG CAP PO SCH ×3 (08:10→21:56)
[2018-01-14] MEDS: INSULIN GLARGINE SOLOSTAR 100 UNITS/ML 3 ML PEN SC SCH ×2 (08:12→22:02)
[2018-01-14] MEDS ORDERED: LEVOFLOXACIN CONSULT ACTIVE PRN (09:54)
[2018-01-14] MEDS ORDERED: LEVALBUTEROL/IPRATROPIUM NEB INH SCH (10:00)
--- NOTE | 2018-01-14 10:02 | Progress Note ---
Medicine Progress Note Date & Time of Visit: Jan 14, 2018 at 09:52. Subjective resting in bed, comfortable feels about the same as yesterday states he has cough, non productive no dyspnea, on 3 liters NC no chest pain no other symptoms Objective Last 8 Hrs Date Time Temp Pulse Resp B/P (MAP) Pulse Ox O2 Delivery O2 Flow Rate FiO2 01/14/18 08:00 Nasal Cannula 3.0 01/14/18 07:55 36.6 74 16 163/82 (109) 97 3.0 01/14/18 04:27 37.0 82 20 107/64 (78) 95 4.0 01/14/18 04:00 Nasal Cannula 3.5 Physical Exam: General- oriented x 3, not in distress, speaks in sentences with no effort Head- atraumatic Eyes- anicteric ENT- (+) oral thrush Neck- supple, no JVD, no adenopathy, no thyromegaly; carotids +2/2 Lungs- (+) diffuse rhonchi right lung, no wheezes, clear on the left Heart- regular rhythm; no murmur, normal rate Abdomen- normal bowel sounds, soft, nontender Extremities- no pretibial edema, no calf tenderness; peripheral pulses intact Neuro- alert, oriented x 3; PERRL, EOMI; mild facial asymm; mild dysarthria; motor 5/5 bilaterally; sensation 100% no other gross focal deficits Skin- warm & dry Laboratory Results: Last 24 Hours Test 01/13/18 19:10 01/13/18 20:05 01/13/18 20:15 01/13/18 20:49 White Blood Count 9.82 K/uL Red Blood Count 4.23 M/uL Hemoglobin 12.6 g/dL Hematocrit 37.7 % Mean Corpuscular Volume 89.1 fL Mean Corpuscular Hemoglobin 29.8 pg Mean Corpuscular Hemoglobin Concent 33.4 g/dl Platelet Count 193 K/uL Mean Platelet Volume 10.0 fL Neutrophils (%) (Auto) 85.3 % Lymphocytes (%) (Auto) 7.7 % Monocytes (%) (Auto) 6.3 % Eosinophils (%) (Auto) 0.3 % Basophils (%) (Auto) 0.2 % Neutrophils # (Auto) 8.37 K/uL Lymphocytes # (Auto) 0.76 K/uL Monocytes # (Auto) 0.62 K/uL Eosinophils # (Auto) 0.03 K/uL Basophils # (Auto) 0.02 K/uL RDW Standard Deviation 43.7 fL RDW Coefficient of Variation 13.4 % Immature Granulocyte % (Auto) 0.2 % Immature Granulocyte # (Auto) 0.02 K/uL Prothrombin Time 10.0 SECONDS Prothromb Time International Ratio 1.0 Activated Partial Thromboplast Time 26.8 SECONDS Partial Thromboplastin Ratio 1.0 Sodium Level 139 mmol/L Potassium Level 4.1 mmol/L Chloride Level 109 mmol/L Carbon Dioxide Level 24 mmol/L Anion Gap 6.0 mmol/L Blood Urea Nitrogen 24 mg/dl Creatinine 1.48 mg/dl Estimated GFR () 66.2 Estimated GFR (Non- 57.1 BUN/Creatinine Ratio 15.9 Random Glucose 171 mg/dl Calcium Level 8.2 mg/dl Total Bilirubin 0.7 mg/dl Direct Bilirubin 0.2 mg/dl Aspartate Amino Transf (AST/SGOT) 11 U/L Alanine Aminotransferase (ALT/SGPT) 18 U/L Alkaline Phosphatase 68 U/L Total Creatine Kinase 114 U/L Creatine Kinase MB < 0.5 ng/ml Creatine Kinase MB Ratio Troponin I < 0.015 ng/ml Total Protein 6.9 gm/dl Albumin 3.5 gm/dl Lipase 41 U/L Lactic Acid Level 1.4 mmol/L Influenza Type A Antigen Neg for Influ A Influenza Type B Antigen Neg for Influ B Arterial Blood pH 7.33 Arterial Blood Partial Pressure CO2 45 mmHg Arterial Blood Partial Pressure O2 116 mm/Hg Arterial Blood HCO3 23 mmol/L Arterial Blood Oxygen Saturation 97.8 % Arterial Blood Base Excess -2.7 mEq/L Arterial Blood Gas Delivery 4.5 L Kendall Test POS Test 01/14/18 01:00 01/14/18 03:21 01/14/18 07:37 Urine Color YELLOW Urine Appearance CLEAR Urine pH 5.5 Urine Specific [place] 1.023 Urine Protein NEG Urine Glucose (UA) 1+ Urine Ketones NEG Urine Occult Blood NEG Urine Nitrite NEG Urine Bilirubin NEG Urine Urobilinogen NEG Urine Leukocyte Esterase NEG Urine WBC (Auto) 0 /hpf Urine RBC (Auto) 0-4 /hpf Urine Hyaline Casts (Auto) 0 /lpf Urine Epithelial Cells (Auto) 0-5 /lpf Urine Bacteria (Auto) NEG Bedside Glucose 97 mg/dl 136 mg/dl Date/Time Source Procedure Growth Status 01/13/18 20:15 Blood Blood Culture Pending Received 01/13/18 20:05 Blood Blood Culture Pending Received Assessment & Plan 42 y/o male with history of CVA, L weakness, DM, HTN, CAD, Asthma, other problems noted below presenting with weakness, fall... ACUTE HYPOXIC RESPIRATORY FAILURE RIGHT SIDED PNEUMONIA POSSIBLE COMM ACQUIRED POSSIBLE ASPIRATION, HISTOR OF CVA ff up blood culture sputum culture Nasal MRSA swab continue Zosyn + Levaquin add Nebs consult Speech Tx ORAL THRUSH Nystatin swish and swallow ASTHMA stable DM -insulin sliding scale with carb coverage and Lantus while hospitalized. HTN CAD-stable continue medical management with aspirin Lipitor and metoprolol. CVA WITH LEFT SIDED WEAKNESS - ASA + Lipitor BIPOLAR -continue Seroquel in the evenings. CHRONIC PAIN -continue oxycodone 5 times daily, Cymbalta, gabapentin. OBESITY JOSE DVT proph-Lovenox Full Code Dispo PT/OT anticipate d/c home when stable, off oxygen supplementation Current Inpatient Medications: Current Inpatient Medications Medications (Trade) Dose Ordered Sig/Ney Route Start Time Stop Time Status Last Admin Dose Admin Enoxaparin Sodium (Lovenox Inj) 40 mg DAILY SC 01/14/18 09:00 02/13/18 08:59 01/14/18 08:08 40 MG Acetaminophen (Tylenol Tab) 650 mg Q4H PRN PO 01/14/18 01:00 02/13/18 00:59 Ondansetron HCl (Zofran Inj) 4 mg Q6H PRN IV 01/14/18 01:00 02/13/18 00:59 Polyethylene (Miralax Powder Packet) 17 gm DAILY PRN PO 01/14/18 01:00 02/13/18 00:59 Glucose (Glucose 40% Gel) 15-30 GRAMS 15 GRAMS... UD PRN PO 01/14/18 01:00 02/13/18 00:59 Glucose (Glucose Chew Tab) 4-8 Tablets 4 Tabl... UD PRN PO 01/14/18 01:00 02/13/18 00:59 Dextrose (Dextrose 50% 50ML Syringe) 25-50ML OF 50% DW IV FOR... UD PRN IV 01/14/18 01:00 02/13/18 00:59 Glucagon (Glucagon Inj) 1 mg UD PRN SQ 01/14/18 01:00 02/13/18 00:59 Aspirin (Ecotrin Tab) 81 mg QAM PO 01/14/18 09:00 02/13/18 08:59 01/14/18 08:10 81 MG Atorvastatin Calcium (Lipitor Tab) 40 mg QPM PO 01/14/18 21:00 02/13/18 20:59 Budesonide/ Formoterol Fumarate (Symbicort 160/ 4.5 Inh) 2 puffs BID INH 01/14/18 09:00 02/13/18 08:59 01/14/18 08:09 2 PUFFS Duloxetine HCl (Cymbalta Cap) 30 mg DAILY PO 01/14/18 09:00 02/13/18 08:59 01/14/18 08:10 30 MG Fenofibrate (Tricor Tab) 48 mg HS PO 01/14/18 21:00 02/13/18 20:59 Fluticasone Propionate (Flonase Nasal [place]) 2 sprays HS CAROLEE 01/14/18 21:00 02/13/18 20:59 Gabapentin (Neurontin Cap) 400 mg TID PO 01/14/18 09:00 02/13/18 08:59 01/14/18 08:10 400 MG Montelukast Sodium (Singulair Tab) 10 mg QAM PO 01/14/18 09:00 02/13/18 08:59 01/14/18 08:10 10 MG Pantoprazole Sodium (Protonix Tab) 40 mg QAM PO 01/14/18 09:00 02/13/18 08:59 01/14/18 08:10 40 MG Quetiapine Fumarate (seroQUEL TAB) 150 mg HS PO 01/14/18 03:00 02/13/18 02:59 01/14/18 02:55 150 MG Topiramate (Topamax Tab) 50 mg HS PO 01/14/18 21:00 02/13/18 20:59 Docusate Sodium (coLACE CAP) 100 mg BID PRN PO 01/14/18 01:45 02/13/18 01:44 Metoprolol Succinate (Toprol Xl Tab) 100 mg BID PO 01/14/18 09:00 02/13/18 08:59 01/14/18 08:10 100 MG Oxycodone HCl (Roxicodone Immediate Rel Tab) 15 mg [id number] PRN PO 01/14/18 01:45 01/28/18 01:44 Trazodone HCl (Desyrel Tab) 150 mg HS PO 01/14/18 21:00 02/13/18 20:59 01/14/18 03:15 150 MG Miscellaneous Information (Consult) 1 ea UD PRN N/A 01/14/18 02:27 02/13/18 02:26 Insulin Glargine (Lantus Solostar Pen) 10 units Q12 SC 01/14/18 09:00 02/13/18 08:59 01/14/18 08:12 10 UNITS Insulin Aspart (novoLOG ASPART) SLIDING SCALE If C... ACHS SC 01/14/18 06:30 02/13/18 06:29 Piperacillin Sod/ Tazobactam Sod 4.5 gm/Dextrose 120 ml @ 30 mls/hr Q8H IV 01/14/18 02:30 01/21/18 02:29 01/14/18 02:54 30 MLS/HR Miscellaneous Information (Pharmacy Consult) 1 ea NOW STAT N/A 01/14/18 09:31 01/14/18 09:32 UNV
[2018-01-14] MEDS: LEVALBUTEROL 0.63MG/3 ML NEB INH SCH ×3 (10:15→19:07)
[2018-01-14] MEDS: IPRATROPIUM BROMIDE NEB SOLN 0.02% 2.5 ML VIAL INH SCH ×3 (11:02→19:07)
[2018-01-14] MEDS: CEFTRIAXONE SOD INJ 1000 MG in DEXTROSE 5% 50ML IV SCH (11:02)
[2018-01-14] MEDS: AZITHROMYCIN 500 MG / D5W 250 ML IV SCH ×2 (12:05)
[2018-01-14] MEDS: NYSTATIN SUSP 500,000 U/5 ML UDC PO SCH ×3 (13:21→21:56)
[2018-01-14] MEDS: OXYCODONE HCL IR 5 MG TAB (IMMEDIATE RELEASE) PO PRN (18:22)
[2018-01-14 19:32] LABS: INFLUENZA A PCR Neg for Influ A (NEG); INFLUENZA B PCR Neg for Influ B (NEG)
[2018-01-14] MEDS: FLUTICASONE PROPIONATE NA SPR 16 GM BTL NAE SCH (21:54)
[2018-01-14] MEDS: TOPIRAMATE 50 MG TAB PO SCH (21:55)
[2018-01-14] MEDS: FENOFIBRATE 48 MG TAB PO SCH (21:55)
[2018-01-14] MEDS: GUAIFENESIN 600 MG TABCR PO SCH (21:57)
[2018-01-14] MEDS: ATORVASTATIN 40 MG TAB PO SCH (21:58)
[2018-01-15] VITALS (17 sets, daily range): BP systolic 92–147; BP diastolic 50–79; PULSE 16–92; TEMP 36.3–37.4; O2SAT 91–100
[2018-01-15] MEDS: OXYCODONE HCL IR 5 MG TAB (IMMEDIATE RELEASE) PO PRN ×2 (00:58→16:29)
[2018-01-15] MEDS: LEVALBUTEROL 0.63MG/3 ML NEB INH SCH ×2 (02:05→07:42)
[2018-01-15] MEDS: IPRATROPIUM BROMIDE NEB SOLN 0.02% 2.5 ML VIAL INH SCH ×2 (02:05→07:42)
[2018-01-15 06:13] LABS: HEMOGLOBIN A1C 6.5 % (4.5-5.6)
[2018-01-15] MEDS: GABAPENTIN 400 MG CAP PO SCH ×3 (08:00→20:59)
[2018-01-15] MEDS: GUAIFENESIN 600 MG TABCR PO SCH ×2 (08:00→20:59)
[2018-01-15] MEDS: DULOXETINE (CYMBALTA) 30 MG CAP PO SCH (08:00)
[2018-01-15] MEDS: NYSTATIN SUSP 500,000 U/5 ML UDC PO SCH ×4 (08:00→20:58)
[2018-01-15] MEDS: PANTOprazole SOD 40 MG TAB PO SCH (08:00)
[2018-01-15] MEDS: BUDESONIDE/FORMOTEROL FUMARATE 160/4.5 60 PUFFS/INHALER INH SCH ×2 (08:00→20:58)
[2018-01-15] MEDS: METOPROLOL SUCC 50MG EXT REL TAB PO SCH ×2 (08:00→20:59)
[2018-01-15] MEDS: MONTELUKAST SOD 10 MG TAB PO SCH (08:00)
[2018-01-15] MEDS: ASPIRIN 81 MG ECTAB PO SCH (08:01)
[2018-01-15] MEDS: ENOXAPARIN 40 MG/0.4 ML SYR SC SCH (08:02)
[2018-01-15] MEDS: INSULIN GLARGINE SOLOSTAR 100 UNITS/ML 3 ML PEN SC SCH ×2 (08:06→21:05)
[2018-01-15] MEDS: INSULIN ASPART 100 UNITS/ML 3 ML PEN SC SCH ×4 (08:06→20:56)
[2018-01-15] MEDS: CEFTRIAXONE SOD INJ 1000 MG in DEXTROSE 5% 50ML IV SCH (10:14)
--- NOTE | 2018-01-15 10:39 | Clinical Documentation Query ---
JULIAN Oseguera : CLINICAL DOCUMENTATION QUERIES QUERY 1 OF 2 Clinical documentation includes a diagnosis of: Acute Respiratory Failure. Due to stringent requirements by our coding department, multiple clinical indicators associated with this diagnosis must be present in order for this to be coded/captured within the medical record. If appropriate, please document 2 or more of the following clinical indicators in daily progress notes and the discharge summary. If you feel the diagnosis of acute respiratory failure was made in error, or do not agree with it, simply discontinue documentation thereof. ER documentation notes (patient) "denies SOB". No documentation of any clinical indicators in ED save for isolated documentation of hypoxemia x 1. H&P notes "no apparent distress, no respiratory distress, no accessory muscle use". Acute Respiratory Failure indicators include: * Respirations >28 * Air hunger * Use of accessory muscles of respiration * Inability to speak in full sentences * Cyanosis * Pulse ox <90% RA or <95% on O2 *pH <7.35 or >7.45 * pO2 < 60 mm Hg (or 10mm below COPD patient's baseline) * pCO2 >50mm Hg (or 10mm above COPD patient's baseline) * mechanical ventilation * Increased work of breathing * Tachypnea QUERY 2 OF 2 No documentation of CKD in the medical record. Additionally, admission BUN, creatinine, and estimated GFR were 24 mg/dl, 1.48 mg/dl and 57 ml/min. Save for episodic YOLA on prior admissions, estimated GFR as high as 111 ml/min, dating back to 12/06/16. Please clarify as clinically appropriate. Thank you. In your clinical opinion is this patient being managed for: ( ) Acute kidney failure ( ) CKD stage 3 ( X ) Not Agree ( ) Other explanation of clinical findings (Please Explain) ( ) Unable to determine (Please Define) ( ) Need to Discuss The medical record reflects the following clinical findings, treatment, and risk factors. Clinical Indicators: As above Treatment: Serial chemistries, IVF Risk Factors: History of YOLA, DM type 2, hypertension IF IN AGREEMENT, YOU MUST DOCUMENT ABOVE DIAGNOSTIC STATEMENT IN DAILY PROGRESS NOTES AND DISCHARGE SUMMARY. This document is not part of the patient's record. Thank You, Alverto Garcia, RN [phone]
[2018-01-15] MEDS: AZITHROMYCIN 500 MG / D5W 250 ML IV SCH ×2 (12:00)
[2018-01-15] MEDS: IPRATROPIUM BROMIDE HFA INHALER INH SCH ×2 (16:20→20:57)
[2018-01-15] MEDS: LEValbuterol HFA 15GM INHALER INH SCH ×2 (16:20→20:58)
[2018-01-15 17:04] LABS: BASO % 0.3 %; BASO ABS # 0.02 K/uL (0-0.2); EOS % 1.2 %; EOS ABS # 0.08 K/uL (0-0.5); HEMATOCRIT 37.3 % (42-52); HEMOGLOBIN 12.5 g/dL (14.0-18.0); IG# 0.02 K/uL (0.00-0.02); LYMPH % 20.2 %; LYMPH ABS # 1.36 K/uL (1.2-3.4); MEAN CELL VOLUME 91.9 fL (80-100); MEAN CORPUSCULAR HEMOGLOBIN 30.8 pg (25-34); MEAN CORPUSCULAR HGB CONC 33.5 g/dl (32-36); MEAN PLATELET VOLUME 9.3 fL (7.4-10.4); MONO % 7.9 %; MONO ABS # 0.53 K/uL (0.11-0.59); NEUT % 70.1 %; NEUT ABS # 4.73 K/uL (1.4-6.5); PLATELET COUNT 209 K/uL (130-400); RED CELL DISTRIBUTION WIDTH CV 13.4 % (11.5-14.5); RED CELL DISTRIBUTION WIDTH SD 44.9 fL (36.4-46.3); WHITE BLOOD COUNT 6.74 K/uL (4.8-10.8)
[2018-01-15 17:23] LABS: CALCIUM 8.4 mg/dl (8.5-10.1); CREATININE 1.35 mg/dl (0.60-1.40)
--- NOTE | 2018-01-15 19:31 | Progress Note ---
Medicine Progress Note Date & Time of Visit: Jan 15, 2018 at 19:28. Subjective seen resting in bed, comfortable on room air with good o2 sats states he is feeling better no dyspnea, less cough no other symptoms Objective Last 8 Hrs Date Time Temp Pulse Resp B/P (MAP) Pulse Ox O2 Delivery O2 Flow Rate FiO2 01/15/18 16:30 93 Room Air 01/15/18 16:12 36.9 88 22 121/67 (85) 94 Room Air 01/15/18 16:00 94 Room Air 01/15/18 14:45 36.7 89 16 98/64 (75) 97 Room Air 01/15/18 13:45 36.8 85 16 92/57 (69) 100 Room Air 01/15/18 12:45 36.3 16 16 102/60 (74) 100 Room Air 01/15/18 12:15 37.4 87 16 108/70 (83) 99 Room Air 01/15/18 12:00 Nasal Cannula 3.0 01/15/18 12:00 36.8 16 16 108/68 (81) 100 Room Air 01/15/18 11:37 36.5 80 20 118/76 (90) 92 Room Air Physical Exam: General- oriented x 3, not in distress, speaks in sentences with no effort Eyes- anicteric ENT- (+) oral thrush-- improving Neck- supple, no JVD Lungs- (+) mild rhonchi on the right, clear on the left Heart- regular rhythm; no murmur, normal rate Abdomen- normal bowel sounds, soft, nontender Extremities- no pretibial edema, no calf tenderness Neuro- alert, oriented x 3; no gross focal deficits Skin- warm & dry Laboratory Results: Last 24 Hours Test 01/14/18 20:56 01/15/18 07:56 01/15/18 11:50 01/15/18 16:36 Bedside Glucose 152 mg/dl 174 mg/dl 169 mg/dl 146 mg/dl Test 01/15/18 16:48 White Blood Count 6.74 K/uL Red Blood Count 4.06 M/uL Hemoglobin 12.5 g/dL Hematocrit 37.3 % Mean Corpuscular Volume 91.9 fL Mean Corpuscular Hemoglobin 30.8 pg Mean Corpuscular Hemoglobin Concent 33.5 g/dl Platelet Count 209 K/uL Mean Platelet Volume 9.3 fL Neutrophils (%) (Auto) 70.1 % Lymphocytes (%) (Auto) 20.2 % Monocytes (%) (Auto) 7.9 % Eosinophils (%) (Auto) 1.2 % Basophils (%) (Auto) 0.3 % Neutrophils # (Auto) 4.73 K/uL Lymphocytes # (Auto) 1.36 K/uL Monocytes # (Auto) 0.53 K/uL Eosinophils # (Auto) 0.08 K/uL Basophils # (Auto) 0.02 K/uL RDW Standard Deviation 44.9 fL RDW Coefficient of Variation 13.4 % Immature Granulocyte % (Auto) 0.3 % Immature Granulocyte # (Auto) 0.02 K/uL Sodium Level 139 mmol/L Potassium Level 4.0 mmol/L Chloride Level 106 mmol/L Carbon Dioxide Level 24 mmol/L Anion Gap 9.0 mmol/L Blood Urea Nitrogen 16 mg/dl Creatinine 1.35 mg/dl Est Creatinine Clear Calc Drug Dose 87.7 ml/min Estimated GFR () 74.0 Estimated GFR (Non- 63.8 BUN/Creatinine Ratio 12.2 Random Glucose 140 mg/dl Calcium Level 8.4 mg/dl Assessment & Plan 42 y/o male with history of CVA, L weakness, DM, HTN, CAD, Asthma, other problems noted below presenting with weakness, fall... ACUTE HYPOXIC RESPIRATORY FAILURE RIGHT SIDED PNEUMONIA POSSIBLE COMM ACQUIRED POSSIBLE ASPIRATION, HISTOR OF CVA on admission, O2 sat 88% on room air, tachypneic Respiratory rate in the 20s ff up blood culture negative sputum culture pending collection Nasal MRSA swab negative continue Ceftri and Azithro Bronchodilators consult Speech Tx-> no aspiration ORAL THRUSH Nystatin swish and swallow ASTHMA stable DM -insulin sliding scale with carb coverage and Lantus while hospitalized. HTN CAD-stable continue medical management with aspirin Lipitor and metoprolol. CVA WITH LEFT SIDED WEAKNESS - ASA + Lipitor BIPOLAR -continue Seroquel in the evenings. CHRONIC PAIN -continue oxycodone 5 times daily, Cymbalta, gabapentin. OBESITY JOSE DVT proph-Lovenox Full Code Dispo anticipate d/c home tomorrow may need two step o2 Current Inpatient Medications: Current Inpatient Medications Medications (Trade) Dose Ordered Sig/Ney Route Start Time Stop Time Status Last Admin Dose Admin Enoxaparin Sodium (Lovenox Inj) 40 mg DAILY SC 01/14/18 09:00 02/13/18 08:59 01/15/18 08:02 40 MG Acetaminophen (Tylenol Tab) 650 mg Q4H PRN PO 01/14/18 01:00 02/13/18 00:59 Ondansetron HCl (Zofran Inj) 4 mg Q6H PRN IV 01/14/18 01:00 02/13/18 00:59 Polyethylene (Miralax Powder Packet) 17 gm DAILY PRN PO 01/14/18 01:00 02/13/18 00:59 Glucose (Glucose 40% Gel) 15-30 GRAMS 15 GRAMS... UD PRN PO 01/14/18 01:00 02/13/18 00:59 Glucose (Glucose Chew Tab) 4-8 Tablets 4 Tabl... UD PRN PO 01/14/18 01:00 02/13/18 00:59 Dextrose (Dextrose 50% 50ML Syringe) 25-50ML OF 50% DW IV FOR... UD PRN IV 01/14/18 01:00 02/13/18 00:59 Glucagon (Glucagon Inj) 1 mg UD PRN SQ 01/14/18 01:00 02/13/18 00:59 Aspirin (Ecotrin Tab) 81 mg QAM PO 01/14/18 09:00 02/13/18 08:59 01/15/18 08:01 81 MG Atorvastatin Calcium (Lipitor Tab) 40 mg QPM PO 01/14/18 21:00 02/13/18 20:59 01/14/18 21:58 40 MG Budesonide/ Formoterol Fumarate (Symbicort 160/ 4.5 Inh) 2 puffs BID INH 01/14/18 09:00 02/13/18 08:59 01/15/18 08:00 2 PUFFS Duloxetine HCl (Cymbalta Cap) 30 mg DAILY PO 01/14/18 09:00 02/13/18 08:59 01/15/18 08:00 30 MG Fenofibrate (Tricor Tab) 48 mg HS PO 01/14/18 21:00 02/13/18 20:59 01/14/18 21:55 48 MG Fluticasone Propionate (Flonase Nasal [place]) 2 sprays HS CAROLEE 01/14/18 21:00 02/13/18 20:59 01/14/18 21:54 2 SPRAYS Gabapentin (Neurontin Cap) 400 mg TID PO 01/14/18 09:00 02/13/18 08:59 01/15/18 14:10 400 MG Montelukast Sodium (Singulair Tab) 10 mg QAM PO 01/14/18 09:00 02/13/18 08:59 01/15/18 08:00 10 MG Pantoprazole Sodium (Protonix Tab) 40 mg QAM PO 01/14/18 09:00 02/13/18 08:59 01/15/18 08:00 40 MG Quetiapine Fumarate (seroQUEL TAB) 150 mg HS PO 01/14/18 03:00 02/13/18 02:59 01/14/18 21:56 150 MG Topiramate (Topamax Tab) 50 mg HS PO 01/14/18 21:00 02/13/18 20:59 01/14/18 21:55 50 MG Docusate Sodium (coLACE CAP) 100 mg BID PRN PO 01/14/18 01:45 02/13/18 01:44 Metoprolol Succinate (Toprol Xl Tab) 100 mg BID PO 01/14/18 09:00 02/13/18 08:59 01/15/18 08:00 100 MG Oxycodone HCl (Roxicodone Immediate Rel Tab) 15 mg 5XDQ4H PRN PO 01/14/18 01:45 01/28/18 01:44 01/15/18 16:29 15 MG Trazodone HCl (Desyrel Tab) 150 mg HS PO 01/14/18 21:00 02/13/18 20:59 01/14/18 21:56 150 MG Insulin Glargine (Lantus Solostar Pen) 10 units Q12 SC 01/14/18 09:00 02/13/18 08:59 01/15/18 08:06 10 UNITS Insulin Aspart (novoLOG ASPART) SLIDING SCALE If C... ACHS SC 01/14/18 06:30 02/13/18 06:29 01/15/18 17:52 6 UNITS Guaifenesin (Mucinex Contr Rel Tab) 600 mg Q12 PO 01/14/18 21:00 02/13/18 20:59 01/15/18 08:00 600 MG Nystatin (Mycostatin Susp) 5 ml QID PO 01/14/18 13:00 01/24/18 12:59 01/15/18 16:29 5 ML Ceftriaxone Sodium 1 gm/ Dextrose 50 ml @ 100 mls/hr DAILY@1000 IV 01/14/18 10:45 01/21/18 10:44 01/15/18 10:14 100 MLS/HR Azithromycin 500 mg/Dextrose 255 ml @ 127.5 mls/ hr DAILY@1200 IV 01/14/18 12:00 01/21/18 11:59 01/15/18 12:00 127.5 MLS/HR Ipratropium [place] (Atrovent Hfa Inhaler) 2 puffs Q6R INH 01/15/18 15:00 02/14/18 14:59 01/15/18 16:20 2 PUFFS Levalbuterol (Xopenex Hfa Inhaler) 2 puffs Q6R INH 01/15/18 15:00 02/14/18 14:59 01/15/18 16:20 2 PUFFS
[2018-01-15] MEDS: FLUTICASONE PROPIONATE NA SPR 16 GM BTL NAE SCH (20:58)
[2018-01-15] MEDS: TRAZODONE HCL 50 MG TAB PO SCH (20:58)
[2018-01-15] MEDS: ATORVASTATIN 40 MG TAB PO SCH (20:59)
[2018-01-15] MEDS: QUETIAPINE FUMARATE 100 MG TAB PO SCH (20:59)
[2018-01-15] MEDS: TOPIRAMATE 50 MG TAB PO SCH (20:59)
[2018-01-15] MEDS: FENOFIBRATE 48 MG TAB PO SCH (21:02)
[2018-01-16] MEDS: IPRATROPIUM BROMIDE HFA INHALER INH SCH ×2 (03:00→07:26)
[2018-01-16] MEDS: LEValbuterol HFA 15GM INHALER INH SCH ×2 (03:00→07:26)
[2018-01-16 04:24] VITALS: BP 129/80; PULSE 64; TEMP 36.5; O2SAT 95
[2018-01-16] MEDS: DULOXETINE (CYMBALTA) 30 MG CAP PO SCH (07:26)
[2018-01-16] MEDS: BUDESONIDE/FORMOTEROL FUMARATE 160/4.5 60 PUFFS/INHALER INH SCH (07:26)
[2018-01-16] MEDS: NYSTATIN SUSP 500,000 U/5 ML UDC PO SCH ×2 (07:27→12:37)
[2018-01-16] MEDS: METOPROLOL SUCC 50MG EXT REL TAB PO SCH (07:27)
[2018-01-16] MEDS: PANTOprazole SOD 40 MG TAB PO SCH (07:27)
[2018-01-16] MEDS: ASPIRIN 81 MG ECTAB PO SCH (07:27)
[2018-01-16] MEDS: GABAPENTIN 400 MG CAP PO SCH ×2 (07:27→12:36)
[2018-01-16] MEDS: GUAIFENESIN 600 MG TABCR PO SCH (07:27)
[2018-01-16] MEDS: MONTELUKAST SOD 10 MG TAB PO SCH (07:27)
[2018-01-16 07:53] VITALS: BP 134/76; PULSE 61; TEMP 36.9; O2SAT 92
[2018-01-16] MEDS: INSULIN GLARGINE SOLOSTAR 100 UNITS/ML 3 ML PEN SC SCH (09:04)
[2018-01-16] MEDS: ENOXAPARIN 40 MG/0.4 ML SYR SC SCH (09:04)
[2018-01-16] MEDS: INSULIN ASPART 100 UNITS/ML 3 ML PEN SC SCH ×2 (09:04→12:41)
[2018-01-16] MEDS: CEFTRIAXONE SOD INJ 1000 MG in DEXTROSE 5% 50ML IV SCH (09:05)
--- NOTE | 2018-01-16 09:43 | Clinical Documentation Query ---
YOSVANY Fam : Please Forward to CLINICAL DOCUMENTATION QUERIES QUERY 1 OF 2 Clinical documentation includes a diagnosis of: Acute Respiratory Failure. Due to stringent requirements by our coding department, multiple clinical indicators associated with this diagnosis must be present in order for this to be coded/captured within the medical record. If appropriate, please document 2 or more of the following clinical indicators in daily progress notes and the discharge summary. If you feel the diagnosis of acute respiratory failure was made in error, or do not agree with it, simply discontinue documentation thereof. ER documentation notes (patient) "denies SOB". No documentation of any clinical indicators in ED save for isolated documentation of hypoxemia x 1. H&P notes "no apparent distress, no respiratory distress, no accessory muscle use". Acute Respiratory Failure indicators include: * Respirations >28 * Air hunger * Use of accessory muscles of respiration * Inability to speak in full sentences * Cyanosis * Pulse ox <90% RA or <95% on O2 *pH <7.35 or >7.45 * pO2 < 60 mm Hg (or 10mm below COPD patient's baseline) * pCO2 >50mm Hg (or 10mm above COPD patient's baseline) * mechanical ventilation * Increased work of breathing * Tachypnea QUERY 2 OF 2 No documentation of CKD in the medical record. Additionally, admission BUN, creatinine, and estimated GFR were 24 mg/dl, 1.48 mg/dl and 57 ml/min. Save for episodic YOLA on prior admissions, estimated GFR as high as 111 ml/min, dating back to 12/06/16. Please clarify as clinically appropriate. Thank you. In your clinical opinion is this patient being managed for: ( ) Acute kidney failure ( ) CKD stage 3 ( ) Not Agree ( ) Other explanation of clinical findings (Please Explain) ( ) Unable to determine (Please Define) ( ) Need to Discuss The medical record reflects the following clinical findings, treatment, and risk factors. Clinical Indicators: As above Treatment: Serial chemistries, IVF Risk Factors: History of YOLA, DM type 2, hypertension Please clarify and document your clinical opinion in the progress notes and discharge summary. Terms such as "probable", "suspected", "likely", "questionable", "possible", or "still to be ruled out" are acceptable. IF IN AGREEMENT, YOU MUST DOCUMENT ABOVE DIAGNOSTIC STATEMENT IN DAILY PROGRESS NOTES AND DISCHARGE SUMMARY. This document is not part of the patient's record. Thank You, Alverto Garcia, RN [phone]
[2018-01-16] MEDS: OXYCODONE HCL IR 5 MG TAB (IMMEDIATE RELEASE) PO PRN (11:04)
[2018-01-16] MEDS: AZITHROMYCIN 500 MG / D5W 250 ML IV SCH ×2 (11:06)
--- NOTE | 2018-01-16 11:14 | Progress Note ---
Medicine Progress Note Date & Time of Visit: Jan 16, 2018 at 11:02. Subjective seen resting in bed, comfortable states he feels much better today no shortness of breath coughing only with deep inspiration no weakness, ambulating with no problems denies other symptoms Objective Last 8 Hrs Date Time Temp Pulse Resp B/P (MAP) Pulse Ox O2 Delivery O2 Flow Rate FiO2 01/16/18 08:27 Room Air 01/16/18 07:53 36.9 61 16 134/76 (95) 92 01/16/18 04:24 36.5 64 19 129/80 (96) 95 Room Air 01/16/18 04:05 Room Air Physical Exam: General- oriented x 3, not in distress, speaks in sentences with no effort Eyes- anicteric ENT- (+) oral thrush-- improving Neck- supple, no JVD Lungs- (+) very mild rhonchi on the right, clear on the left, no wheezing Heart- regular rhythm; no murmur, normal rate Abdomen- normal bowel sounds, soft, nontender Extremities- no pretibial edema, no calf tenderness Neuro- alert, oriented x 3; no gross focal deficits Skin- warm & dry Laboratory Results: Last 24 Hours Test 01/15/18 11:50 01/15/18 16:36 01/15/18 16:48 01/15/18 20:30 Bedside Glucose 169 mg/dl 146 mg/dl 161 mg/dl White Blood Count 6.74 K/uL Red Blood Count 4.06 M/uL Hemoglobin 12.5 g/dL Hematocrit 37.3 % Mean Corpuscular Volume 91.9 fL Mean Corpuscular Hemoglobin 30.8 pg Mean Corpuscular Hemoglobin Concent 33.5 g/dl Platelet Count 209 K/uL Mean Platelet Volume 9.3 fL Neutrophils (%) (Auto) 70.1 % Lymphocytes (%) (Auto) 20.2 % Monocytes (%) (Auto) 7.9 % Eosinophils (%) (Auto) 1.2 % Basophils (%) (Auto) 0.3 % Neutrophils # (Auto) 4.73 K/uL Lymphocytes # (Auto) 1.36 K/uL Monocytes # (Auto) 0.53 K/uL Eosinophils # (Auto) 0.08 K/uL Basophils # (Auto) 0.02 K/uL RDW Standard Deviation 44.9 fL RDW Coefficient of Variation 13.4 % Immature Granulocyte % (Auto) 0.3 % Immature Granulocyte # (Auto) 0.02 K/uL Sodium Level 139 mmol/L Potassium Level 4.0 mmol/L Chloride Level 106 mmol/L Carbon Dioxide Level 24 mmol/L Anion Gap 9.0 mmol/L Blood Urea Nitrogen 16 mg/dl Creatinine 1.35 mg/dl Est Creatinine Clear Calc Drug Dose 87.7 ml/min Estimated GFR () 74.0 Estimated GFR (Non- 63.8 BUN/Creatinine Ratio 12.2 Random Glucose 140 mg/dl Calcium Level 8.4 mg/dl Test 01/16/18 07:42 Bedside Glucose 102 mg/dl Assessment & Plan 42 y/o male with history of CVA, L weakness, DM, HTN, CAD, Asthma, other problems noted below presenting with weakness, fall... ACUTE HYPOXIC RESPIRATORY FAILURE RIGHT SIDED PNEUMONIA, COMM ACQUIRED on admission, O2 sat 88% on room air, tachypneic Respiratory rate in the 20s blood culture negative Nasal MRSA swab negative given 3 days of Ceftriaxone and Azithromycin IV Nebs q6h, then changed to Inhaler consulted Speech Tx-> no aspiration -- clinically improved off oxygen supplement, doing well on room air -- discharge plan: Levaquin 500mg po daily x 7 days Xopenex inhaler q4h PRN for shortness of breath -- ff up with PCP in 3-5 days ORAL THRUSH Nystatin swish and swallow given also improving finish 4 more days to complete 7 days ASTHMA stable not in exacerbation DM -insulin sliding scale with carb coverage and Lantus while hospitalized. - A1c 6.5 continue usual regimen HTN CAD-stable continue medical management with aspirin Lipitor and metoprolol. CVA WITH LEFT SIDED WEAKNESS - ASA + Lipitor BIPOLAR -continue Seroquel in the evenings. CHRONIC PAIN -continue oxycodone 5 times daily, Cymbalta, gabapentin. OBESITY JOSE DVT proph-Lovenox Full Code Dispo d/c home ff up with PCP in 3-5 days Current Inpatient Medications: Current Inpatient Medications Medications (Trade) Dose Ordered Sig/Ney Route Start Time Stop Time Status Last Admin Dose Admin Enoxaparin Sodium (Lovenox Inj) 40 mg DAILY SC 01/14/18 09:00 02/13/18 08:59 01/16/18 09:04 40 MG Acetaminophen (Tylenol Tab) 650 mg Q4H PRN PO 01/14/18 01:00 02/13/18 00:59 Ondansetron HCl (Zofran Inj) 4 mg Q6H PRN IV 01/14/18 01:00 02/13/18 00:59 Polyethylene (Miralax Powder Packet) 17 gm DAILY PRN PO 01/14/18 01:00 02/13/18 00:59 Glucose (Glucose 40% Gel) 15-30 GRAMS 15 GRAMS... UD PRN PO 01/14/18 01:00 02/13/18 00:59 Glucose (Glucose Chew Tab) 4-8 Tablets 4 Tabl... UD PRN PO 01/14/18 01:00 02/13/18 00:59 Dextrose (Dextrose 50% 50ML Syringe) 25-50ML OF 50% DW IV FOR... UD PRN IV 01/14/18 01:00 02/13/18 00:59 Glucagon (Glucagon Inj) 1 mg UD PRN SQ 01/14/18 01:00 02/13/18 00:59 Aspirin (Ecotrin Tab) 81 mg QAM PO 01/14/18 09:00 02/13/18 08:59 01/16/18 07:27 81 MG Atorvastatin Calcium (Lipitor Tab) 40 mg QPM PO 01/14/18 21:00 02/13/18 20:59 01/15/18 20:59 40 MG Budesonide/ Formoterol Fumarate (Symbicort 160/ 4.5 Inh) 2 puffs BID INH 01/14/18 09:00 02/13/18 08:59 01/16/18 07:26 2 PUFFS Duloxetine HCl (Cymbalta Cap) 30 mg DAILY PO 01/14/18 09:00 02/13/18 08:59 01/16/18 07:26 30 MG Fenofibrate (Tricor Tab) 48 mg HS PO 01/14/18 21:00 02/13/18 20:59 01/15/18 21:02 48 MG Fluticasone Propionate (Flonase Nasal [place]) 2 sprays HS CAROLEE 01/14/18 21:00 02/13/18 20:59 01/15/18 20:58 2 SPRAYS Gabapentin (Neurontin Cap) 400 mg TID PO 01/14/18 09:00 02/13/18 08:59 01/16/18 07:27 400 MG Montelukast Sodium (Singulair Tab) 10 mg QAM PO 01/14/18 09:00 02/13/18 08:59 01/16/18 07:27 10 MG Pantoprazole Sodium (Protonix Tab) 40 mg QAM PO 01/14/18 09:00 02/13/18 08:59 01/16/18 07:27 40 MG Quetiapine Fumarate (seroQUEL TAB) 150 mg HS PO 01/14/18 03:00 02/13/18 02:59 01/15/18 20:59 150 MG Topiramate (Topamax Tab) 50 mg HS PO 01/14/18 21:00 02/13/18 20:59 01/15/18 20:59 50 MG Docusate Sodium (coLACE CAP) 100 mg BID PRN PO 01/14/18 01:45 02/13/18 01:44 Metoprolol Succinate (Toprol Xl Tab) 100 mg BID PO 01/14/18 09:00 02/13/18 08:59 01/16/18 07:27 100 MG Oxycodone HCl (Roxicodone Immediate Rel Tab) 15 mg 5XDQ4H PRN PO 01/14/18 01:45 01/28/18 01:44 01/15/18 16:29 15 MG Trazodone HCl (Desyrel Tab) 150 mg HS PO 01/14/18 21:00 02/13/18 20:59 01/15/18 20:58 150 MG Insulin Glargine (Lantus Solostar Pen) 10 units Q12 SC 01/14/18 09:00 02/13/18 08:59 01/16/18 09:04 10 UNITS Insulin Aspart (novoLOG ASPART) SLIDING SCALE If C... ACHS SC 01/14/18 06:30 02/13/18 06:29 01/16/18 09:04 2 UNITS Guaifenesin (Mucinex Contr Rel Tab) 600 mg Q12 PO 01/14/18 21:00 02/13/18 20:59 01/16/18 07:27 600 MG Nystatin (Mycostatin Susp) 5 ml QID PO 01/14/18 13:00 01/24/18 12:59 01/16/18 07:27 5 ML Ceftriaxone Sodium 1 gm/ Dextrose 50 ml @ 100 mls/hr DAILY@1000 IV 01/14/18 10:45 01/21/18 10:44 01/16/18 09:05 100 MLS/HR Azithromycin 500 mg/Dextrose 255 ml @ 127.5 mls/ hr DAILY@1200 IV 01/14/18 12:00 01/21/18 11:59 01/15/18 12:00 127.5 MLS/HR Ipratropium [place] (Atrovent Hfa Inhaler) 2 puffs Q6R INH 01/15/18 15:00 02/14/18 14:59 01/16/18 07:26 2 PUFFS Levalbuterol (Xopenex Hfa Inhaler) 2 puffs Q6R INH 01/15/18 15:00 02/14/18 14:59 01/16/18 07:26 2 PUFFS
[2018-01-16] MEDS ORDERED: LEVO1TAB34 PO (11:24)
[2018-01-16] MEDS ORDERED: Levalbuterol INH (11:24)
[2018-01-16] MEDS ORDERED: GFNSR600 PO (11:24)
[2018-01-16] MEDS ORDERED: NYSS5 PO (11:24)
--- NOTE | 2018-01-16 11:26 | Discharge Instructions ---
Discharge Instructions Date of Service Jan 16, 2018. Admission Reason for Admission: Pneumonia Discharge Discharge Diagnosis / Problem: PNEUMONIA Discharge Goals Goal(s): Diagnostic testing, Therapeutic intervention Activity Recommendations Activity Limitations: as noted below (NO HEAVY EXERTION UNTIL RE-EVALUATED BY YOUR PRIMARY CARE PHYSICIAN) Lifting Limitations: until after follow-up appointment Exercise/Sports Limitations: until after follow-up appointment Driving or Machine Use: NO DRIVIGN UNTIL RE-EVALUATED BY YOUR PRIMARY CARE PHYSICIAN . Instructions / Follow-Up Instructions / Follow-Up PLEASE REVIEW YOUR NEW MEDICATION LIST AND FOLLOW INSTRUCTIONS CAREFULLY. ALWAYS RINSE YOUR MOUTH WITH WATER AFTER EACH USE OF SYMBICORT. CALL PRIMARY CARE PHYSICIAN OR RETURN TO ER IMMEDIATELY IF WITH RECURRENCE OF SYMPTOMS, FEVER/CHILLS, INCREASING COUGH AND PHLEGM, SHORTNESS OF BREATH, DIARRHEA. FOLLOW UP WITH YOUR PRIMARY CARE PHYSICIAN IN 3-5 DAYS. Current Hospital Diet Patient's current hospital diet: Diabetes Type 2 Diet Discharge Diet Recommended Diet: AHA Diet (Heart Healthy), Diabetes Type 2 Diet Procedures Procedures Performed: CHEST XRAY Pending Studies Studies pending at discharge: no Laboratory Results Hemoglobin A1c Test 01/14/18 16:01 Range/Units Estimated Average Glucose 140 mg/dl Hemoglobin A1c 6.5 H 4.5-5.6 % Medical Emergencies . Who to Call and When: Medical Emergencies: If at any time you feel your situation is an emergency, please call 911 immediately. . Non-Emergent Contact Non-Emergency issues call your: Primary Care Provider Call Non-Emergent contact if: you have a fever, you have any medication questions . . "Provider Documentation" section prepared by Jarrod Breaux. .
--- NOTE | 2018-01-16 11:31 | Discharge Summary ---
Discharge Summary Date of Service Jan 16, 2018. Discharge Summary Admission Date: Jan 13, 2018 at 23:06 Discharge Date: Jan 16, 2018 Discharge Disposition: Home Principal Diagnosis: ACUTE HYPOXIC RESPIRATORY FAILURE; RIGHT SIDED PNEUMONIA, COMMUNITY ACQUIRED Secondary Diagnoses/Problems: PLEASE REFER TO HOSPITAL COURSE BELOW. Procedures: CHEST ONE VIEW PORTABLE HISTORY: Evaluate Fever/Sepsis COMPARISON: Chest 07/26/2017. FINDINGS: No pleural effusions. No pneumothorax. The patient is slightly rotated on this study. There are low lung volumes. Right greater than left perihilar interstitial and vascular thickening with a right perihilar hazy airspace opacity. The heart is mildly enlarged. IMPRESSION: Cardiomegaly with interstitial and vascular thickening and a right perihilar hazy airspace opacity. This favors asymmetric pulmonary edema. However, a right-sided pneumonia could also have a similar appearance. Electronically signed by: Avila Carney M.D. 01/13/2018 8:[address] NONCONTRAST CT DOSE: 773.57 mGy.cm HISTORY: Evaluate Fever/Sepsis TECHNIQUE: Multiaxial CT images of the head were performed without the use of intravenous contrast. Automated exposure control was utilized for this study. A dose lowering technique was utilized adhering to the principles of ALARA. Comparison: Head CT 07/26/2017. Findings: Mild mucosal thickening within the sphenoid sinuses. Otherwise, the remaining paranasal sinuses and master cells are clear. The calvarium and skull base are intact. No mass, hematoma, midline shift, acute infarct. Old right MCA territory infarct, unchanged. Impression: No significant change compared to the prior study. No acute intracranial abnormality. Old right MCA territory infarct is again noted. Electronically signed by: Avila Carney M.D. 01/13/2018 9:47 PM Medication Reconciliation New Medications: Levofloxacin (Levaquin) 500 Mg Tab 500 MG PO DAILY for 7 Days, #7 TAB 0 Refills Guaifenesin Ext Rel (Mucinex Ext Rel) 600 Mg Tabcr 600 MG PO Q12 for 7 Days, #14 TAB 0 Refills Nystatin (Nystatin) 5 Ml Susp 5 ML PO QID for 4 Days, #80 ML 0 Refills swish in the mouth and retain for as long as possible (several minutes) before swallowing [Levalbuterol] () 1 INH 2 PUFFS INH Q4H PRN for SOB/Wheezing for 30 Days, #1 INHALER 2 Refills Continued Medications: Acetaminophen (Tylenol 8 Hour Arthritis) 650 Mg Tab 650 MG PO UD PRN for Pain TAKE PER PACKAGE DIRECTIONS Aspirin (Aspirin Ec) 81 Mg Tab 81 MG PO QAM Atorvastatin (Lipitor) 40 Mg Tab 40 MG PO QPM Budesonide/Formoterol Fumarate (Symbicort 160/4.5 Inhaler) 120 Puffs/ Aero 2 PUFFS INH BID Docusate Sodium (Stool Softener) 100 Mg Tab 100 MG PO TID PRN for Constipation Duloxetine HCl (Cymbalta) 30 Mg Cap 30 MG PO DAILY, CAP Fenofibrate (Fenofibrate) 48 Mg Tab 48 MG PO HS Fluticasone Propionate (Fluticasone Propionate) 120 Sprays/6000 Mcg Inha 2 SPRAYS CAROLEE HS Gabapentin (Gabapentin) 400 Mg Cap 400 MG PO TID Metformin HCl (Metformin HCl) 500 Mg Tab 500 MG PO BIDM TAKE THIS MEDICATION WITH BREAKFAST AND EVENING MEAL Metoprolol Succinate (Metoprolol Succinate ER) 100 Mg Tabcr 100 MG PO BID Montelukast Sod (Montelukast Sodium) 10 Mg Tab 10 MG PO QAM Oxycodone Hcl (Oxycodone Hcl) 15 Mg Tab 15 MG PO 5XD Pantoprazole (Pantoprazole Sodium) 40 Mg Tab 40 MG PO QAM Quetiapine Fumarate (Quetiapine Fumarate) 100 Mg Tab 150 MG PO HS Topiramate (Topiramate) 25 Mg Tab 50 MG PO HS Trazodone HCl (Trazodone HCl) 150 Mg Tab 150 MG PO HS PRN for Sleep Discontinued Medications: Ibuprofen (Ibuprofen) 800 Mg Tab 800 MG PEG DAILY PRN for Pain Admission Information HPI (per Admitting provider): The patient is a 42-year-old male with developmental delay and multiple medical issues who presents after an episode of mechanical fall and reports of imbalance today he had an unwitnessed fall in the bathroom reportedly hitting the back of his head. He states that his knees got shaky and weak. he also reports falling similarly in the same position 2 weeks ago. He states he has not felt well for 2 weeks. Her ER records his family told EMS that he has not been acting like himself since the fall. He has been more aggressive and off balance on his feet. Patient has a history of stroke leaving him with left- sided deficits. He also states that his left hand spasms on occasion. The patient denies any fevers, chills, cough, shortness of breath, abdominal pain, nausea, vomiting, diarrhea. He does feel fatigued. He reports to be tolerating p.o. He is currently requiring supplemental oxygen which she is not on at home. He denies any sick contacts or recent travel. He denies a history of smoking but states that he lives with a smoker. He denies any history of choking on food or liquids or any aspiration episodes. Physical Exam (per Admitting): General Appearance: WD/WN, no apparent distress Head: normocephalic, atraumatic Eyes: normal inspection, PERRL, sclerae normal ENT: hearing grossly normal, pharynx normal Neck: supple, no adenopathy, trachea midline Respiratory/Chest: chest non-tender, lungs clear, normal breath sounds, no respiratory distress, no accessory muscle use Cardiovascular: regular rate, rhythm, no edema, no gallop, no JVD, no murmur , normal peripheral pulses Abdomen/GI: normal bowel sounds, non tender, soft Extremities/Musculoskelatal: normal inspection, no calf tenderness, no pedal edema Neurologic/Psych: no motor/sensory deficits, alert, normal mood/affect, oriented x 3 Skin: normal color, warm/dry Hospital Course 42 y/o male with history of CVA, L weakness, DM, HTN, CAD, Asthma, other problems noted below presenting with weakness, fall... ACUTE HYPOXIC RESPIRATORY FAILURE RIGHT SIDED PNEUMONIA, COMMUNITY ACQUIRED - presented with hypoxia, requiring 3 L nasal cannula on admission, O2 sat 88% on room air, tachypneic Respiratory rate in the 20s - cxr: Cardiomegaly with interstitial and vascular thickening and a right perihilar hazy airspace opacity. This favors asymmetric pulmonary edema. However, a right-sided pneumonia could also have a similar appearance. - blood cultures negative Nasal MRSA swab negative given 3 days of Ceftriaxone and Azithromycin IV Nebs q6h, then changed to Inhaler consulted Speech Therapy-> no aspiration -- clinically improved off oxygen supplement, doing well on room air -- discharge plan: Levaquin 500mg po daily x 7 days Xopenex inhaler q4h PRN for shortness of breath -- ff up with PCP in 3-5 days ORAL THRUSH Nystatin swish and swallow given also improving finish 4 more days to complete 7 days ASTHMA stable not in exacerbation DM -insulin sliding scale with carb coverage and Lantus while hospitalized. - A1c 6.5 continue usual regimen HTN CAD-stable continue medical management with aspirin Lipitor and metoprolol. CVA WITH LEFT SIDED WEAKNESS - ASA + Lipitor BIPOLAR -continue Seroquel in the evenings. CHRONIC PAIN -continue oxycodone 5 times daily, Cymbalta, gabapentin. OBESITY JOSE outpatient ff up Disposition d/c home ff up with PCP in 3-5 days Total time spent on discharge = 40 mins This includes examination of the patient, discharge planning, medication reconciliation, and communication with other providers. Discharge Instructions Discharge Instructions Date of Service Jan 16, 2018. Admission Reason for Admission: Pneumonia Discharge Discharge Diagnosis / Problem: PNEUMONIA Discharge Goals Goal(s): Diagnostic testing, Therapeutic intervention Activity Recommendations Activity Limitations: as noted below (NO HEAVY EXERTION UNTIL RE-EVALUATED BY YOUR PRIMARY CARE PHYSICIAN) Lifting Limitations: until after follow-up appointment Exercise/Sports Limitations: until after follow-up appointment Driving or Machine Use: NO DRIVIGN UNTIL RE-EVALUATED BY YOUR PRIMARY CARE PHYSICIAN . Instructions / Follow-Up Instructions / Follow-Up PLEASE REVIEW YOUR NEW MEDICATION LIST AND FOLLOW INSTRUCTIONS CAREFULLY. ALWAYS RINSE YOUR MOUTH WITH WATER AFTER EACH USE OF SYMBICORT. CALL PRIMARY CARE PHYSICIAN OR RETURN TO ER IMMEDIATELY IF WITH RECURRENCE OF SYMPTOMS, FEVER/CHILLS, INCREASING COUGH AND PHLEGM, SHORTNESS OF BREATH, DIARRHEA. FOLLOW UP WITH YOUR PRIMARY CARE PHYSICIAN IN 3-5 DAYS. Current Hospital Diet Patient's current hospital diet: Diabetes Type 2 Diet Discharge Diet Recommended Diet: AHA Diet (Heart Healthy), Diabetes Type 2 Diet Procedures Procedures Performed: CHEST XRAY Pending Studies Studies pending at discharge: no Laboratory Results Hemoglobin A1c Test 01/14/18 16:01 Range/Units Estimated Average Glucose 140 mg/dl Hemoglobin A1c 6.5 H 4.5-5.6 % Medical Emergencies . Who to Call and When: Medical Emergencies: If at any time you feel your situation is an emergency, please call 911 immediately. . Non-Emergent Contact Non-Emergency issues call your: Primary Care Provider Call Non-Emergent contact if: you have a fever, you have any medication questions . . "Provider Documentation" section prepared by Jarrod Breaux.
[2018-01-16 12:04] VITALS: BP 127/74; PULSE 56; TEMP 36.8; O2SAT 94
[2018-01-16 12:26] VITALS: O2SAT 92
[2018-01-16 13:03] VITALS: BP 127/74; PULSE 56; TEMP 36.8; O2SAT 92
== END 2018-01-16 16:15 | disposition home or self-care (01) | DRG 193 ==
LOC: EDBD 19:38 → C.EDC 19:39 → C.MED 23:06 → ENRESERV 23:36
PROVIDERS: ADMIT Hospitalist; ATTEND Internal Medicine
DX: J18.9 Pneumonia, unspecified organism (principal); J96.01 Acute respiratory failure with hypoxia; B37.0 Candidal stomatitis; I69.354 Hemiplegia and hemiparesis following cerebral infarction affecting left non-dominant side; Z77.22 Contact with and (suspected) exposure to environmental tobacco smoke (acute) (chronic); R94.4 Abnormal results of kidney function studies; J45.909 Unspecified asthma, uncomplicated; E11.9 Type 2 diabetes mellitus without complications; I10 Essential (primary) hypertension; I25.10 Atherosclerotic heart disease of native coronary artery without angina pectoris; G89.29 Other chronic pain; F31.9 Bipolar disorder, unspecified; R62.50 Unspecified lack of expected normal physiological development in childhood; F17.220 Nicotine dependence, chewing tobacco, uncomplicated; E66.9 Obesity, unspecified; Z68.36 Body mass index [BMI] 36.0-36.9, adult; Z79.51 Long term (current) use of inhaled steroids; Z79.82 Long term (current) use of aspirin; Z79.84 Long term (current) use of oral hypoglycemic drugs; Z79.891 Long term (current) use of opiate analgesic; Z79.899 Other long term (current) drug therapy; Z88.5 Allergy status to narcotic agent; Z83.6 Family history of other diseases of the respiratory system; Z82.49 Family history of ischemic heart disease and other diseases of the circulatory system; Z83.79 Family history of other diseases of the digestive system; Z82.0 Family history of epilepsy and other diseases of the nervous system; Z83.3 Family history of diabetes mellitus; Z84.1 Family history of disorders of kidney and ureter

== ENCOUNTER → 2018-02-26 | Outpatient (CLI) | payer OTHER ==
[~2018-02-26] MED LIST changes: +ACET650T97 PO; +CYM/30 PO; +DOCU100T7 PO; +DSY/150 PO; -ECON118C TOP; -FLM4 PO; +FLNIN/ NAE; +GFNSR600 PO; +GLC500 PO; +LEVO1TAB34 PO; +LPT40 PO; +Levalbuterol INH; +NRN400 PO; +NYSS5 PO; +OXY/15 PO; +PANT40TA2 PO; -PLV75 PO; +QUET-115 PO; +SNG10 PO; +SYMIN160 INH; +TPM25 PO; +TPRSR/100 PO; -TPRSR/50 PO; +TRC48 PO
[2018-02-27 06:46] LABS: HEMOGLOBIN A1C 6.6 % (4.5-5.6)
== END | disposition home or self-care (01) ==
LOC: C.LABPBG 15:52
PROVIDERS: ATTEND Physician Assistant Medical
DX: Z01.812 Encounter for preprocedural laboratory examination (principal)

== ENCOUNTER 2018-03-19 06:26 | Inpatient (IN) | payer OTHER ==
--- NOTE | 2018-03-03 13:14 | HISTORY & PHYSICAL EXAMINATION ---
DATE OF ADMISSION: 03/19/2018 CHIEF COMPLAINT: Left knee pain. HISTORY OF PRESENT ILLNESS: Gerber is a 42-year-old male with a multiple-year history of left knee pain. The patient rates his pain at 10/10. He has pain with his daily activities. He has limited standing and walking tolerance. Pain is worse with weightbearing. The patient has had previous reconstruction. He ambulates with a cane and wears a brace. He has failed conservative treatment and is scheduled for left knee replacement. PAST MEDICAL HISTORY: Hypertension, hypercholesterolemia, asthma, diabetes with A1c of 6.6, history of TIA, chronic back pain, pneumonia, depression and anxiety. He denies heart disease or DVT. PAST SURGICAL HISTORY: ACL repair and uvulectomy. SOCIAL HISTORY: The patient denies current alcohol use. He does chew tobacco. He lives in a single story home. He is currently on disability. FAMILY HISTORY: Negative for DVT. MEDICATIONS: Ibuprofen 800 mg, oxycodone 15 mg, metformin 500 mg, Plavix 75 mg, Lyrica 100 mg, gabapentin 400 mg, Topamax 50 mg, Singulair 10 mg, trazodone 150 mg, TriCor 48 mg, metoprolol 100 mg, Seroquel 50 mg, Lipitor 80 mg, Protonix 40 mg, Symbicort 160 mg, Flonase 50 mcg, aspirin 81 mg. ALLERGIES: TRAMADOL AND HYDROCODONE. REVIEW OF SYSTEMS: See HPI. Ten other systems reviewed, all negative. PHYSICAL EXAMINATION: VITAL SIGNS: Height 5 feet 9 inches, weight 260 pounds, BMI 38. GENERAL: This is a well-developed, well-nourished male who is alert and oriented x3. Mood and affect are appropriate. HEENT: Normocephalic, atraumatic. Mucous membranes are moist and intact. NECK: Supple without lymphadenopathy. HEART: Regular rate and rhythm without murmurs, rubs or gallops. LUNGS: Clear to auscultation without wheezes or rhonchi. ABDOMEN: Soft and nontender. Bowel sounds are equal and active. EXTREMITIES: No ecchymosis, redness or warmth. He has neutral alignment. Range of motion is from 0-115 degrees with +1 laxity. He has bilateral weakness in both of his lower extremities. Otherwise, he is neurovascularly intact. X-RAY EXAMINATION: AP and lateral views show joint space narrowing and osteophyte formation. IMPRESSION: 1. Degenerative joint disease, left knee. 2. Obesity. 3. Diabetes. PLAN: The patient will be admitted for a left total knee arthroplasty. We will plan on aspirin for DVT prophylaxis. The patient is on chronic narcotics. He takes oxycodone 50 mg b.i.d. He is planning for [facility] upon discharge.
[2018-03-12 13:47] VITALS: BMI 37.0
--- NOTE | 2018-03-12 14:42 | PAT Medication Instructions ---
Service Date March 12, 2018. Current Home Medication List Acetaminophen (Tylenol 8 Hour Arthritis), 650 MG PO UD PRN for Pain Albuterol Sulf (Proventil 0.083% 2.5MG/3ML), 2.5 MG INH BID Aspirin (Aspirin Ec), 81 MG PO QAM Atorvastatin (Lipitor), 80 MG PO HS Budesonide/Formoterol Fumarate (Symbicort 160/4.5 Inhaler), 2 PUFFS INH BID Docusate Sodium (Stool Softener), 100 MG PO TID PRN for Constipation Fenofibrate (Fenofibrate), 48 MG PO HS Fluticasone Propionate (Fluticasone Propionate), 2 SPRAYS CAROLEE BID Gabapentin (Gabapentin), 400 MG PO TID Metformin HCl (Metformin HCl), 500 MG PO BIDM Metoprolol Succinate (Metoprolol Succinate ER), 100 MG PO BID Montelukast Sod (Montelukast Sodium), 10 MG PO QAM Oxycodone Hcl (Oxycodone Hcl), 15 MG PO 5XD Pantoprazole (Pantoprazole Sodium), 40 MG PO QAM Pregabalin (Lyrica), 100 MG PO BID Quetiapine Fumarate (Quetiapine Fumarate), 150 MG PO HS Topiramate (Topamax), 150 MG PO QAM Trazodone HCl (Trazodone HCl), 150 MG PO HS [Nystatin], 5 ML PO PRN Medication Instructions For Your Scheduled Surgery - Hold the following medications 24 hours prior to surgery: Fenofibrate (Fenofibrate), 48 MG PO HS [Nystatin], 5 ML PO PRN - Hold the following medications the morning of surgery: Docusate Sodium (Stool Softener), 100 MG PO TID PRN for Constipation Metformin HCl (Metformin HCl), 500 MG PO BIDM - Take the following medications the morning of surgery with a sip of water: Acetaminophen (Tylenol 8 Hour Arthritis), 650 MG PO UD PRN for Pain (if needed, but must be taken at least four hours before surgery) Albuterol Sulf (Proventil 0.083% 2.5MG/3ML), 2.5 MG INH BID Aspirin (Aspirin Ec), 81 MG PO QAM Budesonide/Formoterol Fumarate (Symbicort 160/4.5 Inhaler), 2 PUFFS INH BID Fluticasone Propionate (Fluticasone Propionate), 2 SPRAYS CAROLEE BID Gabapentin (Gabapentin), 400 MG PO TID Metoprolol Succinate (Metoprolol Succinate ER), 100 MG PO BID Montelukast Sod (Montelukast Sodium), 10 MG PO QAM Oxycodone Hcl (Oxycodone Hcl), 15 MG PO 5XD (if needed, but must be taken at least four hours before surgery) Pantoprazole (Pantoprazole Sodium), 40 MG PO QAM Pregabalin (Lyrica), 100 MG PO BID Topiramate (Topamax), 150 MG PO QAM - Take the following medications as scheduled the night before surgery: Acetaminophen (Tylenol 8 Hour Arthritis), 650 MG PO UD PRN for Pain (if needed) Albuterol Sulf (Proventil 0.083% 2.5MG/3ML), 2.5 MG INH BID Atorvastatin (Lipitor), 80 MG PO HS Budesonide/Formoterol Fumarate (Symbicort 160/4.5 Inhaler), 2 PUFFS INH BID Docusate Sodium (Stool Softener), 100 MG PO TID PRN for Constipation (if needed) Fluticasone Propionate (Fluticasone Propionate), 2 SPRAYS CAROLEE BID Gabapentin (Gabapentin), 400 MG PO TID Metformin HCl (Metformin HCl), 500 MG PO BIDM Metoprolol Succinate (Metoprolol Succinate ER), 100 MG PO BID Oxycodone Hcl (Oxycodone Hcl), 15 MG PO 5XD Pregabalin (Lyrica), 100 MG PO BID Quetiapine Fumarate (Quetiapine Fumarate), 150 MG PO HS Trazodone HCl (Trazodone HCl), 150 MG PO HS If you have any questions please call us at [phone] or [phone] or [phone]
--- NOTE | 2018-03-12 15:29 | DIAGNOSTIC IMAGING REPORT ---
CHEST 2 VIEWS ROUTINE CLINICAL HISTORY: Preoperative chest COMPARISON STUDY: No previous studies for comparison. FINDINGS: The cardiac and mediastinal contours are normal. There is no evidence of focal pulmonary consolidation. There is no evidence of failure. No pleural effusions are visualized.[ There is borderline elevation left hemidiaphragm. There is gaseous prominence of the visualized bowel. IMPRESSION: No active disease in the chest. Electronically signed by: Crow Frances M.D. 03/12/2018 3:27 PM Dictated Date/Time: 03/12/2018 3:27 PM
[2018-03-12 15:33] LABS: BASO % 0.4 %; BASO ABS # 0.03 K/uL (0-0.2); EOS % 1.3 %; EOS ABS # 0.09 K/uL (0-0.5); HEMATOCRIT 38.5 % (42-52); HEMOGLOBIN 13.2 g/dL (14.0-18.0); IG# 0.02 K/uL (0.00-0.02); LYMPH % 27.3 %; LYMPH ABS # 1.92 K/uL (1.2-3.4); MEAN CELL VOLUME 87.5 fL (80-100); MEAN CORPUSCULAR HGB CONC 34.3 g/dl (32-36); MEAN PLATELET VOLUME 9.9 fL (7.4-10.4); MONO ABS # 0.49 K/uL (0.11-0.59); NEUT % 63.7 %; NEUT ABS # 4.48 K/uL (1.4-6.5); PLATELET COUNT 241 K/uL (130-400); RED CELL DISTRIBUTION WIDTH CV 13.7 % (11.5-14.5); RED CELL DISTRIBUTION WIDTH SD 43.7 fL (36.4-46.3); WHITE BLOOD COUNT 7.03 K/uL (4.8-10.8)
[2018-03-12 15:45] LABS: CALCIUM 8.3 mg/dl (8.5-10.1); CREATININE 1.41 mg/dl (0.60-1.40)
[2018-03-13 06:26] LABS: HEMOGLOBIN A1C 6.5 % (4.5-5.6)
[~2018-03-19] VITALS: Ht 175.3 cm; Wt 115.6 kg
[2018-03-19] VITALS (10 sets, daily range): BP systolic 127–177; BP diastolic 58–106; PULSE 65–92; TEMP 36.5–37; O2SAT 95–100; Ht 175.3 cm; Wt 115.6 kg
[~2018-03-19 06:26] MED LIST changes: +ACETAMINOPHEN 500 MG TAB PO SCH; +ALBINS/ INH; +CEFAZOLIN 2000MG IV PUSH 15 ML IV SCH; -CYM/30 PO; +CeleBREX 200 MG CAP PO SCH; +DEXAMETHASONE 4 MG TAB PO SCH; +FAMOTIDINE 20 MG TAB PO SCH; +GABAPENTIN 900 MG PO SCH; -GFNSR600 PO; +LACTATED RINGER'S 1000ML 1,000 ML IV SCH; +LACTATED RINGER'S 1000ML 500 ML IV SCH; -LEVO1TAB34 PO; -Levalbuterol INH; -NYSS5 PO; +NYSTPOW2 PO; +PREG100C PO; +ROPIVACAINE 5MG/ML 30 ML 150 MG, BUPIVACAINE 0.5% MPF INJ 30 ML, EpINEphrine HCL INJ 0.... INFIL SCH; +TOPI50TA24 PO; -TPM25 PO
[2018-03-19] MEDS: TRANEXAMIC ACID INJ 1,000 MG x 2 Bags IV SCH ×4 (06:30→08:54)
--- NOTE | 2018-03-19 07:02 | History & Physical Bridge Note ---
H&P Re-Evaluation Bridge Note: I have examined the patient, reviewed the History & Physical and in the interval since the performance of the History & Physical I have noted the following changes of clinical significance: No changes noted
[2018-03-19] MEDS ORDERED: BUPIVACAINE 0.25% 30 ML VIAL ONE (07:08)
[2018-03-19] MEDS ORDERED: BUPIVACAINE 0.5 % 5 MG/1 ML PF 10ML VIAL ONE (07:08)
[2018-03-19] MEDS ORDERED: FENTANYL CITRATE INJ 50 MCG/1 ML 2 ML VIAL ONE ×4 (07:37→11:19)
[2018-03-19] MEDS ORDERED: MIDAZOLAM HCL 1 MG/ML 2ML VIAL ONE ×2 (07:37)
[2018-03-19] MEDS ORDERED: ORTHO JOINT ANESTHETIC ONE (08:44)
[2018-03-19] MEDS ORDERED: BACITRACIN 50000 UNIT VIAL ONE (08:44)
[2018-03-19] MEDS ORDERED: POVIDONE-IODINE OP SOLN 30 ML BTL ONE (08:44)
[2018-03-19] MEDS ORDERED: MAGNESIUM HYDROXIDE SUSP 30 ML UDC PO PRN (09:00)
[2018-03-19] MEDS ORDERED: BISACODYL 10 MG SUPP PR PRN (09:00)
[2018-03-19] MEDS ORDERED: KETOROLAC TROMETHAMINE 30 MG/ML VIAL IV. PRN (09:00)
[2018-03-19] MEDS ORDERED: ZOLPIDEM TARTRATE 5 MG TAB PO PRN (09:00)
[2018-03-19] MEDS: TOPIRAMATE 50 MG TAB PO SCH (09:00)
[2018-03-19] MEDS ORDERED: LIDOCAINE 2% 20 MG/ML 5ML SYR ONE (09:00)
[2018-03-19] MEDS: MONTELUKAST SOD 10 MG TAB PO SCH (09:00)
[2018-03-19] MEDS: MULTIVITAMIN TAB PO SCH (09:00)
[2018-03-19] MEDS ORDERED: PANTOprazole SOD 40 MG TAB PO SCH (09:00)
[2018-03-19] MEDS ORDERED: OXYCODONE HCL IR 5 MG TAB (IMMEDIATE RELEASE) PO PRN (09:00)
[2018-03-19] MEDS: BUDESONIDE/FORMOTEROL FUMARATE 160/4.5 60 PUFFS/INHALER INH SCH ×2 (09:00→21:16)
[2018-03-19] MEDS ORDERED: SOD PHOSPHATE/SOD BIPHOSPHATE ENEMA 132 ML BTL PR PRN (09:00)
[2018-03-19] MEDS ORDERED: ALUMINUM/MAGNESIUM/SIMETH (MAALOX MAX) 30 ML UDC PO PRN (09:00)
[2018-03-19] MEDS ORDERED: ONDANSETRON INJ 2 MG/ML 2 ML VIAL IV PRN ×2 (09:00→09:15)
[2018-03-19] MEDS ORDERED: MoRPHine SULFATE 4 MG/ML 1 ML CARP\\VIAL IV PRN (09:00)
[2018-03-19] MEDS: FLUTICASONE PROPIONATE NA SPR 16 GM BTL NAE SCH ×2 (09:00→21:16)
[2018-03-19] MEDS: PANTOprazole SOD 40 MG TAB PO SCH (09:00)
[2018-03-19] MEDS ORDERED: EpHEDrine SULFATE INJ 50 MG/ML AMP IV PRN (09:15)
[2018-03-19] MEDS ORDERED: HYDROmorphone INJ 0.5 MG/0.5 ML SYR IV PRN (09:15)
[2018-03-19] MEDS ORDERED: ATROPINE SULFATE 0.1 MG/ML 5ML SYR IV PRN (09:15)
[2018-03-19] MEDS ORDERED: PHARMACY GLYCEMIC MGMT CONSULT PRN (09:30)
[2018-03-19] MEDS ORDERED: PROPOFOL IV EMULSION 10 MG/ML 20 ML VIAL ONE (09:42)
--- NOTE | 2018-03-19 10:30 | [facility] Post Operative Brief Note ---
Immediate Operative Summary Operative Date March 19, 2018. Pre-Operative Diagnosis Degenerative Joint Disease Left Knee Post-Operative Diagnosis Degenerative Joint Diseae Left Knee Procedure(s) Performed Left Total Knee Arthroplasty Surgeon Hi Low Truck Driver Surgeon(s) ARIAS Baig Estimated Blood Loss 5ML Findings Consistent with Post-Op Diagnosis Specimens A. Left Knee Bone and Tissue Anesthesia Type General Complication(s) none Disposition Disposition: Recovery Room / PACU Overlapping Procedure I was present for: the critical portions of procedure. I was immediately available: during the entire case Back up surgeon: was not required during procedure
--- NOTE | 2018-03-19 10:33 | [facility] Operative Report ---
Operative Report Operative Date March 19, 2018. Pre-Operative Diagnosis Degenerative Joint Disease Left Knee Post-Operative Diagnosis Degenerative Joint Diseae Left Knee Procedure(s) Performed Left Total Knee Arthroplasty utilizing journey 2 patient matched total knee arthroplasty size 7 femur 6 tibia 10 polyethylene 35 oval patella Surgeon Fire Control Assistant Surgeon(s) ARIAS Baig Estimated Blood Loss 5ML Findings Patient presents of being seen and evaluated with ongoing complaint of pains about his knee he has had a previous ACL reconstruction has retained screws had an ongoing unstable knee with progressive osteoarthritis he has large medial osteophyte subchondral sclerosis cystic changes varus alignment with a shift to the femur medialward on the tibia he has pseudo-ligamentous laxity due to his loss of medial articular cartilage and meniscus Specimens A. Left Knee Bone and Tissue Anesthesia Type General Complication(s) none Disposition Recovery Room / PACU Indications Patient presents today for total neuroplasty from his previous undergone ACL reconstruction over a decade ago progressive the development of osteoarthritis of the GERD he has bone the bone changes medial compartment subchondral cystic changes marginal osteophyte sclerosis of varus alignment with a shift of the femur medialward on tibia and retained hardware from previous ACL screws from bone tendon bone patellar tendon autograft ACL reconstruction presents for total knee arthroplasty after failing injections anti-inflammatories bracing all other conservative measures Description of Procedure After proper prepping and draping of the left lower extremity anterior midline incision was made over the region of the extensor extensor mechanism after meticulous hemostasis was obtained and maintained in subcutaneous tissues a medial parapatellar incision was made The patella was subluxed lateralward the medial lateral gutter were cleaned from any hypertrophic synovitis and scar tissue of the distal femoral block was placed and the distal femoral osteotomy cut was made subsequently the chamfers anterior and posterior osteotomy cuts were made utilizing the 4-in-1 block the tibia was subsequently subluxed anteriorward medial and ateral meniscal remnants were excised in their entirety remnants of the anterior and posterior cruciate ligaments were excised in their entirety excellent exposure of the proximal tibia was obtained the tibial osteotomy guide was placed on the proximal tibial osteotomy cut was made once again the knee was irrigated with copious amounts of sterile saline solution the patella was subsequently everted lateralward thickened scar tissue around the patella was removed the patella was subsequently cut utilizing a freehand technique and was drilled prepared for final preparation and placement of patella socially flexion-extension gaps were checked and the equal and symmetric trials were placed to the appropriate femoral and tibial trials with poly-spacer being placed for equal flexion and extension gaps and full range of motion including extension to 0 and flexion to 140 the trial components after having been taken to recovery range of motion was subsequently removed meticulous hemostasis was obtained and maintained subsequently a knee block injection of joint cocktail including ropivacaine 0.5% 150 mg. Bupivacaine 0.5 % epinephrine 1-200,030 mL's toradol 30 mg dexamethasone 4 mg ketamine 10 mg clonidine 100 micrograms normal saline solution 30 mg was infiltrated into the soft tissues of the posterior knee medial lateral gutters and periosteal synovium special attention was paid to protect neurovascular structures at all times subsequently trial components having been removed the knee was irrigated with sterile saline solution. debris was removed the proximal tibia was subsequently prepared and was made ready for the placement of the tibial component tibial component was also cemented and tamped into position the femoral component was subsequently placed and cemented in the position the patellar component was subsequently cemented in position because hemostasis once again obtained and maintained wound having been thoroughly irrigated with debridement and debridement lavage was performed as well as a medial parapatellar incision closed with #1 Vicryl in interrupted fashion subcutaneous was closed with #2 Vicryl skin was closed with skin clips. PA-C was necessary for prepping and drapping as well as wound closure of deep fascia Sub cutaneous tissue and skin and was necessary for the case. A sterile compressive dressing was placed patient was taken to recovery in stable condition of report dictated by Dougie I attest to the content of the Intraoperative Record and any orders documented therein. Any exceptions are noted below. I attest to the content of the Intraoperative Record and any orders documented therein. Any exceptions are noted below.
[2018-03-19] MEDS ORDERED: GLYCOPYRROLATE INJ 0.2 MG/ML VIAL ONE (10:44)
[2018-03-19] MEDS ORDERED: NEOSTIGMINE METHYLSULFATE 5 MG/5 ML SYR ONE (10:44)
[2018-03-19] MEDS ORDERED: LABETALOL HCL IV 5 MG/ML 20ML ONE (10:54)
[2018-03-19] MEDS ORDERED: ROCURONIUM BROMIDE 10 MG/ML 5 ML VIAL ONE (11:18)
[2018-03-19] MEDS: FENTANYL CITRATE INJ 50 MCG/1 ML 2 ML VIAL IV PRN ×5 (11:27→12:10)
[2018-03-19] MEDS ORDERED: MoRPHine SULFATE 10 MG/ML CARP/VIAL IV PRN (11:30)
--- NOTE | 2018-03-19 12:11 | Anesthesiology Progress Note ---
Anesthesia Post Op Note Date & Time March 19, 2018 at 12:11 Vital Signs Pain Intensity: 6 Vital Signs Past 12 Hours Date Time Temp Pulse Resp B/P (MAP) Pulse Ox O2 Delivery O2 Flow Rate FiO2 03/19/18 12:00 62 20 107/81 99 Nasal Cannula 3 03/19/18 11:50 58 18 136/78 99 Nasal Cannula 3 03/19/18 11:40 63 12 121/92 100 Nasal Cannula 3 03/19/18 11:30 59 15 123/77 100 Nasal Cannula 3 03/19/18 11:20 61 23 146/86 99 Nasal Cannula 3 03/19/18 11:12 36.0 67 14 143/85 99 Oxymask 10 03/19/18 07:01 36.7 65 20 177/106 97 Room Air Notes Mental Status: alert / awake / arousable, participated in evaluation Pt Amnestic to Procedure: Yes Nausea / Vomiting: adequately controlled Pain: adequately controlled Airway Patency, RR, SpO2: stable & adequate BP & HR: stable & adequate Hydration State: stable & adequate Anesthetic Complications: no major complications apparent
[2018-03-19] MEDS ORDERED: FENTANYL CITRATE INJ 50 MCG/1 ML 2 ML VIAL IV PRN (12:15)
--- NOTE | 2018-03-19 12:30 | DIAGNOSTIC IMAGING REPORT ---
L KNEE 1 2 VIEWS ROUTINE CLINICAL HISTORY: Postsurgical study COMPARISON: None DISCUSSION: Interference screws are visualized suggesting a prior ACL repair. There are postsurgical changes of a total left knee arthroplasty and patellar resurfacing. The femoral tibial components appear well seated. Overlying skin lamar and surgical drains are evident. There is air within the soft tissues consistent with recent surgery. IMPRESSION: Postsurgical changes of a total left knee arthroplasty. Electronically signed by: Crow Frances M.D. 03/19/2018 12:29 PM Dictated Date/Time: 03/19/2018 12:26 PM
[2018-03-19] MEDS: SODIUM CHLORIDE 0.9% 1000ML 1,000 ML IV SCH (13:13)
[2018-03-19] MEDS: ACETAMINOPHEN 500 MG TAB PO SCH ×2 (14:13→22:18)
[2018-03-19] MEDS: GABAPENTIN 400 MG CAP PO SCH ×2 (14:13→21:15)
[2018-03-19] MEDS ORDERED: LANTUS PER UNIT CHARGE SQ ONE (14:30)
[2018-03-19] MEDS ORDERED: NURSING VERBAL MED ORDER ONE ×3 (14:45→19:00)
--- NOTE | 2018-03-19 15:15 | Pharmacy Progress Note ---
Pharmacy Glycemic Short Note 2 Date of Service March 19, 2018. OUTPATIENT ANTIDIABETIC REGIMEN: * Metformin 500mg PO BID * HbA1c: 6.5% (03/12/18) ASSESSMENT: * Mr Ryan is a 42yo type 2 diabetic male, POD #0 s/p L TKA. * Patient received Dexamethasone 8mg PO x1 dose pre-op this morning. * Patient initiated on basal/bolus insulin regimen post-op in an attempt to avoid significant steroid-induced hyperglycemia. PLAN FOR INPATIENT GLYCEMIC CONTROL: * Hold outpatient oral diabetes medications * Basal insulin * Lantus 15 units SQ x1 dose -- dosed conservatively, as A1c indicates tight glycemic control w / oral agent only at home * Bolus insulin * NovoLog per scale ACHS or Q6hrs while NPO * Goal Range: Low 110 mg/dL - High 140 mg/dL * Correction Factor: 30 mg/dL/unit * Nutritional / Prandial insulin per carb ratio of 1 unit per 10 grams CHO consumed PLAN FOR DISCHARGE: * Recent A1c (6.5%) indicates acceptable glycemic control as an outpt. * Expect that pt may resume home regimen on discharge.
[2018-03-19] MEDS: INSULIN ASPART 100 UNITS/ML 3 ML PEN SC SCH ×2 (15:36→21:27)
[2018-03-19] MEDS: OXYCODONE HCL IR 5 MG TAB (IMMEDIATE RELEASE) PO PRN (17:54)
[2018-03-19] MEDS ORDERED: INSULIN ASPART 100 UNITS/ML 3 ML PEN SC SCH (18:00)
[2018-03-19] MEDS: CEFAZOLIN IV 2,000 MG in SYRINGE 0 ML IV SCH (18:44)
[2018-03-19] MEDS: ALBUTEROL 0.083% NEBU SOLN 3 ML VIAL INH SCH (19:23)
[2018-03-19] MEDS ORDERED: OXYCODONE HCL 10 MG TABCR (OXYCONTIN) PO SCH (21:00)
[2018-03-19] MEDS: DOCUSATE SODIUM 100 MG CAP PO SCH (21:14)
[2018-03-19] MEDS: FENOFIBRATE 48 MG TAB PO SCH (21:14)
[2018-03-19] MEDS: ASPIRIN 81 MG ECTAB PO SCH (21:14)
[2018-03-19] MEDS: SENNA 8.6 MG TAB PO SCH (21:15)
[2018-03-19] MEDS: METOPROLOL SUCC 50MG EXT REL TAB PO SCH (21:15)
[2018-03-19] MEDS: ATORVASTATIN 40 MG TAB PO SCH (21:15)
[2018-03-19] MEDS: OXYCODONE HCL 20 MG TABCR (OXYCONTIN) PO SCH (21:22)
[2018-03-19] MEDS: PREGABALIN 100 MG CAP PO SCH (21:23)
--- NOTE | 2018-03-19 21:42 | Medical Consult ---
Consultation Date of Consultation: March 19, 2018. Attending Physician: Miguel Angel Constantino D.O. Past Medical/Surgical History Medical Problems: (1) Acute renal failure Status: Acute (2) Chest pain Status: Acute (3) Contusion Status: Acute (4) Failure to thrive Status: Acute (5) Headache Status: Acute (6) Headache Status: Acute (7) Hypoxia Status: Acute (8) Left knee sprain Status: Acute (9) Left sided chest pain Status: Acute (10) Left-sided weakness Status: Acute (11) Migraine Status: Acute (12) Neck pain Status: Acute (13) Osteoarthritis of left knee Status: Acute (14) Pneumonia Status: Acute (15) Self neglect Status: Acute (16) Traumatic hematoma of left knee Status: Acute Family History Diabetes mellitus FH: cancer FH: lung disease FH: migraines MOTHER FHx: gallbladder disease FHx: heart disease Hypertension Kidney disease Kidney stones Social History Smoking Status: Never Smoker Drug Use: none Marital Status: single Occupation Status: disabled Allergies Coded Allergies: Hydrocodone (Verified Allergy, Unknown, hives, itching,VOMITING, 03/12/18) [place] (Verified Allergy, Unknown, ITCHY, 03/12/18) Tramadol (Verified Adverse Reaction, Unknown, VOMITING, 03/19/18) Current Inpatient Medications Current Inpatient Medications Medications (Trade) Dose Ordered Sig/Ney Route Start Time Stop Time Status Last Admin Dose Admin Sodium Chloride 1,000 ml @ 100 mls/hr Q10H IV 03/19/18 08:58 03/20/18 08:57 03/19/18 13:13 100 MLS/HR Cefazolin Sodium 2000 mg/Syringe 15 ml @ 3.75 mls/ min Q8H IV 03/19/18 18:00 03/20/18 02:03 03/19/18 18:44 3.75 MLS/MIN Celecoxib (CeleBREX CAP) 200 mg BID PO 03/20/18 21:00 04/19/18 20:59 Acetaminophen (Tylenol Tab) 1,000 mg Q8H PO 03/19/18 14:00 04/18/18 08:59 03/19/18 14:13 1,000 MG Magnesium Hydroxide (Milk Of Magnesia Susp) 30 ml Q6H PRN PO 03/19/18 09:00 6/15/18 08:59 Bisacodyl (Dulcolax Supp) 10 mg DAILY PRN [place] 03/19/18 09:00 04/18/18 08:59 Sodium Biphosphate/ Sodium Phosphate (Fleet Enema) 132 ml DAILY PRN [place] 03/19/18 09:00 04/18/18 08:59 Senna (Senokot Tab) 17.2 mg HS PO 03/19/18 21:00 04/18/18 20:59 03/19/18 21:15 17.2 MG Docusate Sodium (coLACE CAP) 100 mg BID PO 03/19/18 21:00 04/18/18 20:59 03/19/18 21:14 100 MG Diphenhydramine HCl (Benadryl Cap) 25 mg Q8H PRN PO 03/19/18 09:00 04/18/18 08:59 Al Hydrox/Mg Hydrox/Simethicone (Maalox Max Susp) 15 ml Q4H PRN PO 03/19/18 09:00 04/18/18 08:59 Zolpidem Tartrate (Ambien Tab) 5 mg HSZ PRN PO 03/19/18 09:00 04/18/18 08:59 Multivitamins (Multivitamin Tab) 1 tab QAM PO 03/19/18 09:00 04/18/18 08:59 Ondansetron HCl (Zofran Inj) 4 mg Q6H PRN IV 03/19/18 09:00 04/18/18 08:59 Ketorolac Tromethamine (Toradol Inj) 30 mg Q6H PRN IV. 03/19/18 09:00 03/20/18 08:59 Aspirin (Ecotrin Tab) 81 mg BID PO 03/19/18 21:00 04/18/18 08:59 03/19/18 21:14 81 MG Albuterol Sulfate (Ventolin 0.083% 2.5MG/3ML Neb) 2.5 mg BIDR INH 03/19/18 20:00 04/18/18 08:59 03/19/18 19:23 2.5 MG Atorvastatin Calcium (Lipitor Tab) 80 mg HS PO 03/19/18 21:00 04/18/18 20:59 03/19/18 21:15 80 MG Budesonide/ Formoterol Fumarate (Symbicort 160/ 4.5 Inh) 2 puffs BID INH 03/19/18 09:00 04/18/18 08:59 03/19/18 21:16 2 PUFFS Fenofibrate (Tricor Tab) 48 mg HS PO 03/19/18 21:00 04/18/18 20:59 03/19/18 21:14 48 MG Fluticasone Propionate (Flonase Nasal [place]) 2 sprays BID CAROLEE 03/19/18 09:00 04/18/18 08:59 03/19/18 21:16 2 SPRAYS Gabapentin (Neurontin Cap) 400 mg TID PO 03/19/18 14:00 04/18/18 13:59 03/19/18 21:15 400 MG Montelukast Sodium (Singulair Tab) 10 mg QAM PO 03/19/18 09:00 04/18/18 08:59 Pantoprazole Sodium (Protonix Tab) 40 mg QAM PO 03/19/18 09:00 04/18/18 08:59 Pregabalin (Lyrica Cap) 100 mg BID PO 03/19/18 21:00 04/18/18 08:59 03/19/18 21:23 100 MG Quetiapine Fumarate (seroQUEL TAB) 150 mg HS PO 03/19/18 21:00 04/18/18 20:59 Topiramate (Topamax Tab) 150 mg QAM PO 03/19/18 09:00 04/18/18 08:59 Metoprolol Succinate (Toprol Xl Tab) 100 mg BID PO 03/19/18 21:00 04/18/18 20:59 03/19/18 21:15 100 MG Trazodone HCl (Desyrel Tab) 150 mg HS PO 03/19/18 21:00 04/18/18 20:59 Miscellaneous Information (Order Awaiting Action) 1 ea QS N/A 03/19/18 16:00 04/18/18 15:59 Morphine Sulfate (MoRPHine SULFATE INJ) 2mg IV for Pain rating ... Q4HWA PRN IV 03/19/18 09:00 04/02/18 08:59 03/19/18 14:20 4 MG Miscellaneous Information (Consult Glycemic Management Pharmacy) 1 ea UD PRN N/A 5/16/18 09:30 04/18/18 09:29 Morphine Sulfate (MoRPHine SULFATE INJ) 6 mg Q4HWA PRN IV 03/19/18 11:30 04/02/18 11:29 Insulin Aspart (novoLOG ASPART) SLIDING SCALE ACHS SC 03/19/18 17:15 04/18/18 17:14 03/19/18 21:27 7 UNITS Oxycodone HCl (Roxicodone Immediate Rel Tab) `2-3 tabs for pain 2 tabS ... Q4H PRN PO 03/19/18 15:15 04/02/18 15:14 03/19/18 17:54 15 MG Oxycodone HCl (Oxycontin Tab) 20 mg Q12 PO 03/19/18 21:00 04/02/18 20:59 03/19/18 21:22 20 MG Insulin Aspart (novoLOG ASPART) SLIDING SCALE 0000,0400 SC 03/20/18 00:00 03/20/18 04:01 Physical Exam Date Time Temp Pulse Resp B/P (MAP) Pulse Ox O2 Delivery O2 Flow Rate FiO2 03/19/18 21:10 92 150/93 (112) 03/19/18 19:23 89 16 97 Room Air 03/19/18 19:07 36.9 92 22 163/97 (119) 95 Room Air 03/19/18 15:49 36.9 86 17 136/83 (100) 96 Room Air 03/19/18 15:40 Nasal Cannula 2.0 03/19/18 14:43 83 16 149/58 (88) 03/19/18 13:45 36.8 76 16 143/85 (104) 97 Nasal Cannula 2.0 03/19/18 13:15 36.7 86 18 129/81 (97) 100 Nasal Cannula 2.0 03/19/18 12:45 36.5 74 16 127/71 (89) 100 Nasal Cannula 3.0 03/19/18 12:45 Nasal Cannula 3.0 03/19/18 12:45 Nasal Cannula 03/19/18 12:30 36.2 73 20 136/82 99 Nasal Cannula 3 03/19/18 12:20 59 16 137/87 100 Nasal Cannula 3 03/19/18 12:10 36.4 67 18 121/94 100 Nasal Cannula 3 03/19/18 12:00 62 20 107/81 99 Nasal Cannula 3 03/19/18 11:50 58 18 136/78 99 Nasal Cannula 3 03/19/18 11:40 63 12 121/92 100 Nasal Cannula 3 03/19/18 11:30 59 15 123/77 100 Nasal Cannula 3 03/19/18 11:20 61 23 146/86 99 Nasal Cannula 3 03/19/18 11:12 36.0 67 14 143/85 99 Oxymask 10 03/19/18 07:01 36.7 65 20 177/106 97 Room Air Laboratory Results Last 24 Hours Test 03/19/18 06:48 03/19/18 11:16 03/19/18 15:36 03/19/18 17:24 Bedside Glucose 100 mg/dl 182 mg/dl 203 mg/dl 297 mg/dl Test 03/19/18 21:00 Bedside Glucose 266 mg/dl
[2018-03-20] VITALS (10 sets, daily range): BP systolic 130–162; BP diastolic 68–98; PULSE 66–78; TEMP 36.6–36.9; O2SAT 95–98
[2018-03-20] MEDS: TRAZODONE HCL 50 MG TAB PO SCH (00:01)
[2018-03-20] MEDS: SODIUM CHLORIDE 0.9% 1000ML 1,000 ML IV SCH (00:02)
[2018-03-20] MEDS: QUETIAPINE FUMARATE 100 MG TAB PO SCH (00:02)
[2018-03-20] MEDS: OXYCODONE HCL IR 5 MG TAB (IMMEDIATE RELEASE) PO PRN ×5 (00:08→18:41)
[2018-03-20] MEDS: INSULIN ASPART 100 UNITS/ML 3 ML PEN SC SCH ×6 (00:17→21:00)
[2018-03-20] MEDS: CEFAZOLIN IV 2,000 MG in SYRINGE 0 ML IV SCH (02:28)
[2018-03-20] MEDS: ACETAMINOPHEN 500 MG TAB PO SCH ×3 (05:38→21:15)
[2018-03-20 07:01] LABS: CALCIUM 8.1 mg/dl (8.5-10.1); CREATININE 1.24 mg/dl (0.60-1.40); POTASSIUM 3.9 mmol/L (3.5-5.1)
[2018-03-20] MEDS: ALBUTEROL 0.083% NEBU SOLN 3 ML VIAL INH SCH ×2 (07:05→19:18)
[2018-03-20 07:16] LABS: HEMATOCRIT 31.7 % (42-52); MEAN CELL VOLUME 85.4 fL (80-100); MEAN CORPUSCULAR HEMOGLOBIN 29.6 pg (25-34); MEAN PLATELET VOLUME 9.1 fL (7.4-10.4); PLATELET COUNT 195 K/uL (130-400); RED CELL DISTRIBUTION WIDTH CV 13.4 % (11.5-14.5); RED CELL DISTRIBUTION WIDTH SD 41.5 fL (36.4-46.3); WHITE BLOOD COUNT 11.72 K/uL (4.8-10.8)
[2018-03-20 07:17] LABS: MEAN CORPUSCULAR HGB CONC 34.7 g/dl (32-36)
--- NOTE | 2018-03-20 07:44 | Anesthesiology Progress Note ---
Anesthesia Post Op Note Date & Time March 20, 2018 at 07:43 Vital Signs Pain Intensity: 9.0 Vital Signs Past 12 Hours Date Time Temp Pulse Resp B/P (MAP) Pulse Ox O2 Delivery O2 Flow Rate FiO2 03/20/18 07:06 66 16 95 Room Air 03/20/18 03:45 36.6 69 16 156/78 (104) 98 Room Air 03/19/18 23:45 Room Air 03/19/18 23:20 37.0 90 18 129/78 (95) 95 Room Air 03/19/18 21:10 92 150/93 (112) Notes Mental Status: alert / awake / arousable, participated in evaluation Pt Amnestic to Procedure: Yes Nausea / Vomiting: adequately controlled Pain: adequately controlled Airway Patency, RR, SpO2: stable & adequate BP & HR: stable & adequate Hydration State: stable & adequate Anesthetic Complications: no major complications apparent
--- NOTE | 2018-03-20 08:11 | Orthopedic Progress Note ---
Orthopedic Progress Note Date of Service March 20, 2018. Subjective Post OP Day: 1 Reports: feeling well, Denies: chest pain, SOB, nausea / vomiting, light headedness, calf pain Additional Notes: PATIENT GROGGY THIS AM, DIFFICULTY STAYING AWAKE TO RESPOND TO QUESTIONS. DENIES CURRENT PAIN. Objective calves soft nontender, N/V intact (WEAK DORSIFLEXION), capillary refill less than 2 sec., dressing C/D/I, A&O x3, toes mobile Date Time Temp Pulse Resp B/P (MAP) Pulse Ox O2 Delivery O2 Flow Rate FiO2 03/20/18 07:06 66 16 95 Room Air 03/20/18 03:45 36.6 69 16 156/78 (104) 98 Room Air 03/19/18 23:45 Room Air 03/19/18 23:20 37.0 90 18 129/78 (95) 95 Room Air 03/19/18 21:10 92 150/93 (112) 03/19/18 19:23 89 16 97 Room Air 03/19/18 19:07 36.9 92 22 163/97 (119) 95 Room Air 03/19/18 15:49 36.9 86 17 136/83 (100) 96 Room Air 03/19/18 15:40 Nasal Cannula 2.0 03/19/18 14:43 83 16 149/58 (88) 03/19/18 13:45 36.8 76 16 143/85 (104) 97 Nasal Cannula 2.0 03/19/18 13:15 36.7 86 18 129/81 (97) 100 Nasal Cannula 2.0 03/19/18 12:45 36.5 74 16 127/71 (89) 100 Nasal Cannula 3.0 03/19/18 12:45 Nasal Cannula 3.0 03/19/18 12:45 Nasal Cannula 03/19/18 12:30 36.2 73 20 136/82 99 Nasal Cannula 3 03/19/18 12:20 59 16 137/87 100 Nasal Cannula 3 03/19/18 12:10 36.4 67 18 121/94 100 Nasal Cannula 3 03/19/18 12:00 62 20 107/81 99 Nasal Cannula 3 03/19/18 11:50 58 18 136/78 99 Nasal Cannula 3 03/19/18 11:40 63 12 121/92 100 Nasal Cannula 3 03/19/18 11:30 59 15 123/77 100 Nasal Cannula 3 03/19/18 11:20 61 23 146/86 99 Nasal Cannula 3 03/19/18 11:12 36.0 67 14 143/85 99 Oxymask 10 Laboratory Results 24 Hours: Test 03/20/18 06:08 03/20/18 06:55 Prothromb Time International Ratio 1.0 Prothrombin Time 10.2 SECONDS Hematocrit 31.7 % Hemoglobin 11.0 g/dL Assessment & Plan Assessment: POD#1 SP LEFT TKA Plan: PT/OT DVT PROPH- ASA 81MG BID PAIN MANAGEMENT- CHRONIC NARCOTIC USER -PAIN MGT CONSULTED, AWAIT RECOMMENDATIONS -CURRENTLY TAKING HIS BASELINE SARITHA (10-15 MG BID PER H&P), ADDED OXYCONTIN 20MG AND IV MORPHINE -APPEARS LETHARGIC THIS AM BUT WITH ADEQUATE PAIN CONTROL. STATES HE DIDN'T SLEEP LAST NIGHT MEDICAL MGT- -MUSTAPHA ASTORGA PLANNING- ANTICIPATE DC TO HOME WITH HOME PT. HOPEFULLY SATURDAY. DC DRESSING/DRAIN IN AM.
[2018-03-20] MEDS: PANTOprazole SOD 40 MG TAB PO SCH (08:48)
[2018-03-20] MEDS: MONTELUKAST SOD 10 MG TAB PO SCH (08:48)
[2018-03-20] MEDS: MULTIVITAMIN TAB PO SCH (08:48)
[2018-03-20] MEDS: METOPROLOL SUCC 50MG EXT REL TAB PO SCH ×2 (08:48→21:16)
[2018-03-20] MEDS: TOPIRAMATE 50 MG TAB PO SCH (08:48)
[2018-03-20] MEDS: GABAPENTIN 400 MG CAP PO SCH ×3 (08:49→21:12)
[2018-03-20] MEDS: ASPIRIN 81 MG ECTAB PO SCH ×2 (08:49→21:12)
[2018-03-20] MEDS: FLUTICASONE PROPIONATE NA SPR 16 GM BTL NAE SCH ×2 (08:50→21:11)
[2018-03-20] MEDS: DOCUSATE SODIUM 100 MG CAP PO SCH ×2 (08:50→21:12)
[2018-03-20] MEDS: BUDESONIDE/FORMOTEROL FUMARATE 160/4.5 60 PUFFS/INHALER INH SCH ×2 (08:50→21:11)
[2018-03-20] MEDS: PREGABALIN 100 MG CAP PO SCH ×2 (08:57→21:12)
[2018-03-20] MEDS: OXYCODONE HCL 20 MG TABCR (OXYCONTIN) PO SCH ×2 (08:57→21:12)
[2018-03-20] MEDS ORDERED: LANTUS PER UNIT CHARGE SQ ONE (09:00)
--- NOTE | 2018-03-20 09:17 | Pharmacy Progress Note ---
Pharmacy Glycemic Short Note 2 Date of Service March 20, 2018. OUTPATIENT ANTIDIABETIC REGIMEN: * Metformin 500mg PO BID * HbA1c: 6.5% (03/12/18) ASSESSMENT: 03/20/18: * Patient had some hyperglycemia last evening, which appears to have been corrected with Novolog doses. * Will provide another small dose of Lantus this morning and resume home metformin Rx. * Will loosen Novolog parameters today if BSGs are reasonable. 03/19/18 * Mr Ryan is a 42yo type 2 diabetic male, POD #0 s/p L TKA. * Patient received Dexamethasone 8mg PO x1 dose pre-op this morning. * Patient initiated on basal/bolus insulin regimen post-op in an attempt to avoid significant steroid-induced hyperglycemia. PLAN FOR INPATIENT GLYCEMIC CONTROL: * Resume Metformin 500mg PO BID with meals * Basal insulin * Lantus 10 units SQ x1 dose -- dosed conservatively, as A1c indicates tight glycemic control w / oral agent only at home * Bolus insulin * NovoLog per scale ACHS or Q6hrs while NPO * Goal Range: Low 110 mg/dL - High 140 mg/dL * Correction Factor: 30 mg/dL/unit * Nutritional / Prandial insulin per carb ratio of 1 unit per 10 grams CHO consumed PLAN FOR DISCHARGE: * Recent A1c (6.5%) indicates acceptable glycemic control as an outpt. * Expect that pt may resume home regimen on discharge.
[2018-03-20] MEDS: METFORMIN HCL 500 MG TAB PO SCH ×4 (09:25→17:56)
--- NOTE | 2018-03-20 10:06 | Pain Management Consultation ---
Pain Management Consultation Date of Consultation March 20, 2018. Reason for Consultation Left knee pain History Mr. Ryan is a 42-year-old male that is being seen for postoperative pain status post left knee arthroplasty which was performed on 03/19/18. Patient does have a several year history of left knee pain in which he has been using a cane and knee brace. He has been chronically prescribed oxycodone 15 mg 5 times daily for pain relief by his PCP. Patient was reporting increased pain after the knee replacement. He does have oxycodone 15 mg ordered every 4 hours as needed for pain relief. Last night there was an addition of OxyContin 20 mg to his opioid regimen. Patient states that the OxyContin did not provide any additional pain relief. He describes a throbbing, aching, and stabbing pain in the left knee. Pain is rated 9/10 currently. He has been on high dosed opioids for 3 years -including medication such as hydromorphone, Percocet, fentanyl patches. Case discussed with Dr. Manzo Past Medical/Surgical History (1) Opioid dependence (2) HTN (hypertension) (3) GERD (gastroesophageal reflux disease) (4) Obesity (5) Asthma (6) JOSE (obstructive sleep apnea) (7) Bipolar disorder (8) Anxiety (9) Dyslipidemia (10) Chronic pain (11) DM type 2 (diabetes mellitus, type 2) (12) History of coronary artery disease (13) S/P TKR (total knee replacement) (14) Hx of reconstruction of anterior cruciate ligament tear (15) History of tonsillectomy and adenoidectomy (16) S/P left knee arthroscopy (17) Tobacco use Family History Diabetes mellitus FH: cancer FH: lung disease FH: migraines MOTHER FHx: gallbladder disease FHx: heart disease Hypertension Kidney disease Kidney stones Social / Work History Drug Use: none Marital Status: single Housing Status: lives with friends Occupation: disabled Allergies Coded Allergies: Hydrocodone (Verified Allergy, Unknown, hives, itching,VOMITING, 03/12/18) [place] (Verified Allergy, Unknown, ITCHY, 03/12/18) Tramadol (Verified Adverse Reaction, Unknown, VOMITING, 03/19/18) Medications Current Inpatient Medications Medications (Trade) Dose Ordered Sig/Ney Route Start Time Stop Time Status Last Admin Dose Admin Celecoxib (CeleBREX CAP) 200 mg BID PO 03/20/18 21:00 04/19/18 20:59 Acetaminophen (Tylenol Tab) 1,000 mg Q8H PO 03/19/18 14:00 04/18/18 08:59 03/20/18 05:38 1,000 MG Magnesium Hydroxide (Milk Of Magnesia Susp) 30 ml Q6H PRN PO 03/19/18 09:00 04/18/18 08:59 Bisacodyl (Dulcolax Supp) 10 mg DAILY PRN [place] 03/19/18 09:00 04/18/18 08:59 Sodium Biphosphate/ Sodium Phosphate (Fleet Enema) 132 ml DAILY PRN [place] 03/19/18 09:00 04/18/18 08:59 Senna (Senokot Tab) 17.2 mg HS PO 03/19/18 21:00 04/18/18 20:59 03/19/18 21:15 17.2 MG Docusate Sodium (coLACE CAP) 100 mg BID PO 03/19/18 21:00 04/18/18 20:59 03/20/18 08:50 100 MG Diphenhydramine HCl (Benadryl Cap) 25 mg Q8H PRN PO 03/19/18 09:00 04/18/18 08:59 Al Hydrox/Mg Hydrox/Simethicone (Maalox Max Susp) 15 ml Q4H PRN PO 03/19/18 09:00 04/18/18 08:59 Zolpidem Tartrate (Ambien Tab) 5 mg HSZ PRN PO 03/19/18 09:00 04/18/18 08:59 Multivitamins (Multivitamin Tab) 1 tab QAM PO 03/19/18 09:00 04/18/18 08:59 03/20/18 08:48 1 TAB Ondansetron HCl (Zofran Inj) 4 mg Q6H PRN IV 03/19/18 09:00 04/18/18 08:59 Aspirin (Ecotrin Tab) 81 mg BID PO 03/19/18 21:00 04/18/18 08:59 03/20/18 08:49 81 MG Albuterol Sulfate (Ventolin 0.083% 2.5MG/3ML Neb) 2.5 mg BIDR INH 03/19/18 20:00 04/18/18 08:59 03/20/18 07:05 2.5 MG Atorvastatin Calcium (Lipitor Tab) 80 mg HS PO 03/19/18 21:00 04/18/18 20:59 03/19/18 21:15 80 MG Budesonide/ Formoterol Fumarate (Symbicort 160/ 4.5 Inh) 2 puffs BID INH 03/19/18 09:00 04/18/18 08:59 03/20/18 08:50 2 PUFFS Fenofibrate (Tricor Tab) 48 mg HS PO 03/19/18 21:00 04/18/18 20:59 03/19/18 21:14 48 MG Fluticasone Propionate (Flonase Nasal [place]) 2 sprays BID CAROLEE 03/19/18 09:00 04/18/18 08:59 03/20/18 08:50 2 SPRAYS Gabapentin (Neurontin Cap) 400 mg TID PO 03/19/18 14:00 04/18/18 13:59 03/20/18 08:49 400 MG Montelukast Sodium (Singulair Tab) 10 mg QAM PO 03/19/18 09:00 04/18/18 08:59 03/20/18 08:48 10 MG Pantoprazole Sodium (Protonix Tab) 40 mg QAM PO 03/19/18 09:00 04/18/18 08:59 03/20/18 08:48 40 MG Pregabalin (Lyrica Cap) 100 mg BID PO 03/19/18 21:00 04/18/18 08:59 03/20/18 08:57 100 MG Quetiapine Fumarate (seroQUEL TAB) 150 mg HS PO 03/19/18 21:00 04/18/18 20:59 03/20/18 00:02 150 MG Topiramate (Topamax Tab) 150 mg QAM PO 03/19/18 09:00 04/18/18 08:59 03/20/18 08:48 150 MG Metoprolol Succinate (Toprol Xl Tab) 100 mg BID PO 03/19/18 21:00 04/18/18 20:59 03/20/18 08:48 100 MG Trazodone HCl (Desyrel Tab) 150 mg HS PO 03/19/18 21:00 04/18/18 20:59 03/20/18 00:01 150 MG Miscellaneous Information (Order Awaiting Action) 1 ea QS N/A 03/19/18 16:00 04/18/18 15:59 Morphine Sulfate (MoRPHine SULFATE INJ) 2mg IV for Pain rating ... Q4HWA PRN IV 03/19/18 09:00 04/02/18 08:59 03/19/18 14:20 4 MG Miscellaneous Information (Consult Glycemic Management Pharmacy) 1 ea UD PRN N/A 03/19/18 09:30 04/18/18 09:29 Morphine Sulfate (MoRPHine SULFATE INJ) 6 mg Q4HWA PRN IV 03/19/18 11:30 04/02/18 11:29 Insulin Aspart (novoLOG ASPART) SLIDING SCALE ACHS SC 03/19/18 17:15 04/18/18 17:14 03/20/18 08:56 6 UNITS Oxycodone HCl (Roxicodone Immediate Rel Tab) `2-3 tabs for pain 2 tabS ... Q4H PRN PO 03/19/18 15:15 04/02/18 15:14 03/20/18 09:27 15 MG Oxycodone HCl (Oxycontin Tab) 20 mg Q12 PO 03/19/18 21:00 04/02/18 20:59 03/20/18 08:57 20 MG Metformin HCl (Glucophage Tab) 500 mg BIDM PO 03/20/18 09:00 04/19/18 08:59 03/20/18 09:25 500 MG Review of Systems Denies any constitutional, cardiac, pulmonary, neurological, GI, , extremity, endocrine, neuro, ENT, dermatological, or musculoskeletal complaints other than stated in HPI Physical Exam Height & Weight: Height 5 feet, 9 inches. Weight 115.6 (Kilograms) 254 (Pounds) Last Vital Signs Documentation Date Time Temp Pulse Resp B/P (MAP) Pulse Ox O2 Delivery O2 Flow Rate FiO2 03/20/18 08:56 98 Room Air 03/20/18 08:12 36.6 68 19 162/84 (110) 03/19/18 15:40 2.0 Exam: GENERAL: Mr. Ryan is a 42 y/o white male that appears obese and physically deconditioned. Speech and cognition is intact. Mood and affect is appropriate. Does not appear in any acute distress. HEAD: Normocephalic; atraumatic. EYES: Pupils are round, equal, and reactive to light; EOM intact. CHEST: Regular chest respiration and excursion. EXTREMITIES: Left knee bandaged. Did not examine. NEURO: CN II-XII grossly intact with no focal deficits noted. AAO x 3. SKIN: No lesions, erythema, or rashes noted. Laboratory Laboratory Results (Last CBC): 03/20/18 06:55 Imaging Radiology Findings 03/19/18: Left knee arthroplasty [place] Drug Monitoring Program Search Results: patient reviewed within database Drug Monitoring Findings: Patient is consistent with prescribers and pharmacy. He has been on chronic high-dose opiates for 3 years. Assessment 1. Postoperative pain status post left knee arthroplasty 2. Opioid dependency Recommendations 1. Continue the currently Oxycodone 15mg x 4 hours PRN breakthrough pain as this is his baseline pain medication from home. 2. Continue OxyContin 20mg PO BID. Patient states that it is not effective but I have explained to the patient that he has only taken 1 dose last night and it may take a day or two to reach a therapeutic level as it is a long acting opioid. He is understanding. 3. I would urge the patient to ambulate and work with PT/OT. 4. Recommend prescribing OxyContin for acute postoperative pain for 2-3 weeks and discontinue it. He should then continue the Oxycodone he has been chronically on and work towards diminishing the dosage. 5. Given the high amount of opioids the patient is on, I would recommend that the patient have Narcan at home upon discharge as he is at high risk for opioid overdose.
[2018-03-20] MEDS: CeleBREX 200 MG CAP PO SCH (21:11)
[2018-03-20] MEDS: ATORVASTATIN 40 MG TAB PO SCH (21:12)
[2018-03-20] MEDS: SENNA 8.6 MG TAB PO SCH (21:13)
[2018-03-20] MEDS: FENOFIBRATE 48 MG TAB PO SCH (21:14)
--- NOTE | 2018-03-20 23:28 | Progress Note ---
Medicine Progress Note Date & Time of Visit: March 20, 2018 at 23:28. Subjective late entry date of service as noted above resting in bed, comfortable denies chest pain, dyspnea, dizziness, nausea states pain is adequately controlled ambulating better no other symptoms Objective Last 8 Hrs Date Time Temp Pulse Resp B/P (MAP) Pulse Ox O2 Delivery O2 Flow Rate FiO2 03/20/18 21:17 78 142/81 (101) 03/20/18 19:50 Room Air 03/20/18 17:44 137/83 (101) 03/20/18 15:45 97 Room Air Physical Exam: General- oriented x 3, not in distress, speaks in sentences Eyes- anicteric Neck- supple, no JVD Lungs- clear breath sounds bilaterally Heart- regular rhythm; no murmur, normal rate Abdomen- normal bowel sounds, soft, nontender Extremities- no pretibial edema, no calf tenderness; peripheral pulses intact Neuro- alert, oriented x 3;mild residual left sided weakness Skin- warm & dry Laboratory Results: Last 24 Hours Test 03/20/18 00:13 03/20/18 03:42 03/20/18 06:08 03/20/18 06:55 Bedside Glucose 163 mg/dl 132 mg/dl Prothrombin Time 10.2 SECONDS Prothromb Time International Ratio 1.0 Sodium Level 139 mmol/L Potassium Level 3.9 mmol/L Chloride Level 110 mmol/L Carbon Dioxide Level 22 mmol/L Anion Gap 8.0 mmol/L Blood Urea Nitrogen 22 mg/dl Creatinine 1.24 mg/dl Est Creatinine Clear Calc Drug Dose 96.3 ml/min Estimated GFR () 82.0 Estimated GFR (Non- 70.8 BUN/Creatinine Ratio 17.9 Random Glucose 151 mg/dl Calcium Level 8.1 mg/dl White Blood Count 11.72 K/uL Red Blood Count 3.71 M/uL Hemoglobin 11.0 g/dL Hematocrit 31.7 % Mean Corpuscular Volume 85.4 fL Mean Corpuscular Hemoglobin 29.6 pg Mean Corpuscular Hemoglobin Concent 34.7 g/dl RDW Standard Deviation 41.5 fL RDW Coefficient of Variation 13.4 % Platelet Count 195 K/uL Mean Platelet Volume 9.1 fL Test 03/20/18 08:19 03/20/18 12:27 03/20/18 17:17 03/20/18 20:37 Bedside Glucose 152 mg/dl 158 mg/dl 139 mg/dl 136 mg/dl Assessment & Plan S/P LEFT TKA stable overall pain management and DVT prophylaxis per Ortho HISTORY OF CVA RESIDUAL LEFT SIDED WEAKNESS stable continue ASA, Atorvastatin DM 2 BSGs within acceptable range Pharmacy on board HTN continue Metoprolol CAD no cardiac symptoms continue above medications ASTHMA not in exacerbation continue montelukast, Symbicort Thank you for this consultation. We will follow the patient with you during their hospital stay. You can reach a member of the [facility] Hospitalist Team 27/05 via pager @ . Current Inpatient Medications: Current Inpatient Medications Medications (Trade) Dose Ordered Sig/Ney Route Start Time Stop Time Status Last Admin Dose Admin Celecoxib (CeleBREX CAP) 200 mg BID PO 03/20/18 21:00 04/19/18 20:59 03/20/18 21:11 200 MG Acetaminophen (Tylenol Tab) 1,000 mg Q8H PO 03/19/18 14:00 04/18/18 08:59 03/20/18 21:15 1,000 MG Magnesium Hydroxide (Milk Of Magnesia Susp) 30 ml Q6H PRN PO 03/19/18 09:00 04/18/18 08:59 Bisacodyl (Dulcolax Supp) 10 mg DAILY PRN MI 03/19/18 09:00 04/18/18 08:59 Sodium Biphosphate/ Sodium Phosphate (Fleet Enema) 132 ml DAILY PRN MI 03/19/18 09:00 04/18/18 08:59 Senna (Senokot Tab) 17.2 mg HS PO 03/19/18 21:00 04/18/18 20:59 03/20/18 21:13 17.2 MG Docusate Sodium (coLACE CAP) 100 mg BID PO 03/19/18 21:00 04/18/18 20:59 03/20/18 21:12 100 MG Diphenhydramine HCl (Benadryl Cap) 25 mg Q8H PRN PO 03/19/18 09:00 04/18/18 08:59 Al Hydrox/Mg Hydrox/Simethicone (Maalox Max Susp) 15 ml Q4H PRN PO 03/19/18 09:00 04/18/18 08:59 Zolpidem Tartrate (Ambien Tab) 5 mg HSZ PRN PO 03/19/18 09:00 04/18/18 08:59 Multivitamins (Multivitamin Tab) 1 tab QAM PO 03/19/18 09:00 04/18/18 08:59 03/20/18 08:48 1 TAB Ondansetron HCl (Zofran Inj) 4 mg Q6H PRN IV 03/19/18 09:00 04/18/18 08:59 Aspirin (Ecotrin Tab) 81 mg BID PO 03/19/18 21:00 04/18/18 08:59 03/20/18 21:12 81 MG Albuterol Sulfate (Ventolin 0.083% 2.5MG/3ML Neb) 2.5 mg BIDR INH 03/19/18 20:00 04/18/18 08:59 03/20/18 07:05 2.5 MG Atorvastatin Calcium (Lipitor Tab) 80 mg HS PO 03/19/18 21:00 04/18/18 20:59 03/20/18 21:12 80 MG Budesonide/ Formoterol Fumarate (Symbicort 160/ 4.5 Inh) 2 puffs BID INH 03/19/18 09:00 04/18/18 08:59 03/20/18 21:11 2 PUFFS Fenofibrate (Tricor Tab) 48 mg HS PO 03/19/18 21:00 04/18/18 20:59 03/20/18 21:14 48 MG Fluticasone Propionate (Flonase Nasal [place]) 2 sprays BID CAROLEE 03/19/18 09:00 04/18/18 08:59 03/20/18 21:11 2 SPRAYS Gabapentin (Neurontin Cap) 400 mg TID PO 03/19/18 14:00 04/18/18 13:59 03/20/18 21:12 400 MG Montelukast Sodium (Singulair Tab) 10 mg QAM PO 03/19/18 09:00 04/18/18 08:59 03/20/18 08:48 10 MG Pantoprazole Sodium (Protonix Tab) 40 mg QAM PO 03/19/18 09:00 04/18/18 08:59 03/20/18 08:48 40 MG Pregabalin (Lyrica Cap) 100 mg BID PO 03/19/18 21:00 04/18/18 08:59 03/20/18 21:12 100 MG Quetiapine Fumarate (seroQUEL TAB) 150 mg HS PO 03/19/18 21:00 04/18/18 20:59 03/20/18 00:02 150 MG Topiramate (Topamax Tab) 150 mg QAM PO 03/19/18 09:00 04/18/18 08:59 03/20/18 08:48 150 MG Metoprolol Succinate (Toprol Xl Tab) 100 mg BID PO 03/19/18 21:00 04/18/18 20:59 03/20/18 21:16 100 MG Trazodone HCl (Desyrel Tab) 150 mg HS PO 03/19/18 21:00 04/18/18 20:59 03/20/18 00:01 150 MG Miscellaneous Information (Order Awaiting Action) 1 ea QS N/A 03/19/18 16:00 04/18/18 15:59 Morphine Sulfate (MoRPHine SULFATE INJ) 2mg IV for Pain rating ... Q4HWA PRN IV 03/19/18 09:00 04/02/18 08:59 03/19/18 14:20 4 MG Miscellaneous Information (Consult Glycemic Management Pharmacy) 1 ea UD PRN N/A 03/19/18 09:30 04/18/18 09:29 Morphine Sulfate (MoRPHine SULFATE INJ) 6 mg Q4HWA PRN IV 03/19/18 11:30 04/02/18 11:29 Insulin Aspart (novoLOG ASPART) SLIDING SCALE ACHS SC 03/19/18 17:15 04/18/18 17:14 03/20/18 12:58 9 UNITS Oxycodone HCl (Roxicodone Immediate Rel Tab) `2-3 tabs for pain 2 tabS ... Q4H PRN PO 03/19/18 15:15 04/02/18 15:14 03/20/18 18:41 15 MG Oxycodone HCl (Oxycontin Tab) 20 mg Q12 PO 03/19/18 21:00 18 20:59 03/20/18 21:12 20 MG Metformin HCl (Glucophage Tab) 500 mg BIDM PO 03/20/18 09:00 04/19/18 08:59 03/20/18 17:56 500 MG
[2018-03-21 00:01] VITALS: BP 137/88; PULSE 68; TEMP 36.9; O2SAT 99
[2018-03-21] MEDS: TRAZODONE HCL 50 MG TAB PO SCH (00:08)
[2018-03-21] MEDS: OXYCODONE HCL IR 5 MG TAB (IMMEDIATE RELEASE) PO PRN ×4 (00:09→18:02)
[2018-03-21] MEDS: QUETIAPINE FUMARATE 100 MG TAB PO SCH (00:09)
[2018-03-21] MEDS: ACETAMINOPHEN 500 MG TAB PO SCH ×2 (06:40→13:26)
[2018-03-21 07:05] VITALS: PULSE 70; O2SAT 95
[2018-03-21] MEDS: ALBUTEROL 0.083% NEBU SOLN 3 ML VIAL INH SCH (07:05)
[2018-03-21 08:20] VITALS: BP 115/76; PULSE 71
[2018-03-21 08:29] VITALS: O2SAT 99
[2018-03-21] MEDS: GABAPENTIN 400 MG CAP PO SCH ×2 (09:00→13:25)
[2018-03-21] MEDS: PREGABALIN 100 MG CAP PO SCH (09:00)
[2018-03-21] MEDS: OXYCODONE HCL 20 MG TABCR (OXYCONTIN) PO SCH (09:00)
[2018-03-21] MEDS ORDERED: NURSING VERBAL MED ORDER ONE (09:15)
[2018-03-21] MEDS: INSULIN ASPART 100 UNITS/ML 3 ML PEN SC SCH ×3 (09:20→18:01)
[2018-03-21] MEDS: FLUTICASONE PROPIONATE NA SPR 16 GM BTL NAE SCH (09:21)
[2018-03-21] MEDS: BUDESONIDE/FORMOTEROL FUMARATE 160/4.5 60 PUFFS/INHALER INH SCH (09:21)
[2018-03-21] MEDS: METOPROLOL SUCC 50MG EXT REL TAB PO SCH (09:22)
[2018-03-21] MEDS: PANTOprazole SOD 40 MG TAB PO SCH (09:22)
[2018-03-21] MEDS: MULTIVITAMIN TAB PO SCH (09:22)
[2018-03-21] MEDS: CeleBREX 200 MG CAP PO SCH (09:22)
[2018-03-21] MEDS: MONTELUKAST SOD 10 MG TAB PO SCH (09:22)
[2018-03-21] MEDS: TOPIRAMATE 50 MG TAB PO SCH (09:23)
[2018-03-21] MEDS: ASPIRIN 81 MG ECTAB PO SCH (09:23)
[2018-03-21] MEDS: DOCUSATE SODIUM 100 MG CAP PO SCH (09:24)
[2018-03-21] MEDS: METFORMIN HCL 500 MG TAB PO SCH ×2 (09:24→18:01)
--- NOTE | 2018-03-21 09:38 | Orthopedic Progress Note ---
Orthopedic Progress Note Date of Service March 21, 2018. Subjective Post OP Day: 2 Additional Notes: Nursing asked me to see pt due to low respirations. Stated he was difficult to arouse. I went back to see the pt and found him sitting up in bed eating his breakfast. Pt was answering all questions appropriately but has slightly slurred speech. Pt appeared comfortable. States he has sleep apnea and had surgery for this? Refuses to use CPAP at home. We discussed pain meds that he is taking currently in the hospital. He states that he thought that Dr. Constantino was going to give him some type of different pain medication other than what he was taking at home. He was going to quit taking the OxyIR at home. I discussed with him that he is receiving OxyIR at this time along with the OxyContin of which he states the OxyContin does not help him. He is obviously getting effects from the OxyContin whether he believes that or not. We discussed that he should not be stopping his OxyIR which she was taking 5 times a day at home. Currently here, he is getting the OxyIR every 4 hours which I explained to him is at least one more dose and he will get at home. He seemed to understand however he would go back to discussing his home OxyIR and the possible discontinuation of it. The patient did not complain of pain at any time during the visit. He discussed the fact that in the mornings, he is very groggy due to the fact that he is awake a good portion of the night. He states that he gets most of his sleep during the day because of this. He also states that he has tremors in the morning as well that tend to settle down during the day. He is currently undergoing workup with [facility] for this. I have asked pain management to see the patient this morning for further recommendations on his pain medications. Objective calves soft nontender, N/V intact, dressing C/D/I, A&O x3, toes mobile Date Time Temp Pulse Resp B/P (MAP) Pulse Ox O2 Delivery O2 Flow Rate FiO2 03/21/18 09:29 8 03/21/18 08:20 71 7 115/76 (89) 03/21/18 07:05 70 16 95 Room Air 03/21/18 00:01 36.9 68 18 137/88 (104) 99 Room Air 03/20/18 21:17 78 142/81 (101) 03/20/18 19:50 Room Air 03/20/18 17:44 137/83 (101) 03/20/18 15:45 97 Room Air 03/20/18 14:56 36.9 68 16 149/98 (115) 97 Room Air 03/20/18 11:15 36.6 68 17 130/68 (88) 98 Room Air 03/20/18 10:50 71 97 Assessment & Plan Assessment: POD#2 SP LEFT TKA Plan: PT/OT DVT PROPH- ASA 81MG BID PAIN MANAGEMENT- CHRONIC NARCOTIC USER - PAIN MANAGEMENT CURRENTLY SEEING [facility] Pain management team has seen the patient this morning and also noted increased lethargy more so than yesterday. Dr. Breaux has held his morning dose of Lyrica as well as OxyContin. I discussed plans with pain management team. We will discontinue the use of the OxyContin at this time. We will continue his OxyIR 15 mg every 4 hours. I will add Toradol to his pain regimen for 24 hours. He also has IV morphine for breakthrough pain. I will also discuss the possibility of him going to [facility]. He apparently went there before after a prior admission. Inhouse Planning Pain Management: Celebrex, Toradol, Morphine, PO Tylenol, Oxy IR DVT Prophylaxis: TEDs, SCDs, ASA Discharge Planning Discharge Planning: home with home health
--- NOTE | 2018-03-21 09:55 | Pain Management Progress Note ---
Pain Management Progress Note Date of Service March 21, 2018. Subjective Mr. Ryan had a left knee arthroplasty on 03/19/18. He was chronically on Oxycodone 15mg five times daily for chronic low back pain and knee pain x 1 year. OxyContin 20mg PO BID was ordered in addition to the patient's regimen. He has taken 3 doses, last dose was last night. This morning he was lethargic and slurring speech. Patient states that he has had breathing problems ( obstructive sleep apnea) for 10 years. He states that he previously had a surgery for it which was not effective and he does not like the CPAP machine so he does not use it. This morning his respiratory rate was found to be 7 per minute. Patient states that OxyContin is starting to help his pain. He denies nay symptoms. Patient states that every day he is groggy with slurred speak and forgetfulness. He states that he is not able to read a clock, text, or call in the mornings due to blurred vision but it slightly improves later in the day. He states that he sleeps off an on all day. Case discussed with Dr. Manzo Objective Vital Signs: Last Vital Signs Documentation Date Time Temp Pulse Resp B/P (MAP) Pulse Ox O2 Delivery O2 Flow Rate FiO2 03/21/18 09:29 8 03/21/18 08:20 71 115/76 (89) 03/21/18 07:05 95 Room Air 03/21/18 00:01 36.9 03/19/18 15:40 2.0 Physical Exam: GENERAL: Mr. Ryan is a 42 y/o white male that appears obese and physically deconditioned. Does not appear in any acute distress. He does have slurred and slowed speech. Patient is rambling during discussion. EXTREMITIES: Left knee bandaged. Did not examine. NEURO: CN II-XII grossly intact with no focal deficits noted. He is able to answers questions appropriately. SKIN: No lesions, erythema, or rashes noted. Laboratory Laboratory Findings 03/20/18 06:55 Assessment 1. Postoperative pain status post left knee arthroplasty 2. Opioid dependency 3. Respiratory depression d/t opioids 4. Obstructive sleep apnea - refuses CPAP Recommendations 1. Discontinue OxyContin 2. Continue Oxycodone 10-15mg PO x 4 hours PRN pain 3. He may benefit from a rehab facility to monitor medications as well as work on the patient's physical therapy 4. Patient has been giving numerous excuses and rambling. He is adamant that he should stop Oxycodone and only take OxyContin for the post operative pain. I have tried to explain to the patient that his MME of Oxycodone is higher than the OxyContin and he would experience increased pain. Yesterday he said that the OxyContin did not provide any pain relief and did not help his pain previously. He also states that he is always groggy and such. I have told the patient that I saw him at the same time yesterday and he was not slurring his speech and lethargic. 5. Hold Lyrica and Gabapentin morning dose.
--- NOTE | 2018-03-21 11:09 | Pharmacy Progress Note ---
Pharmacy Glycemic Short Note 2 Date of Service March 21, 2018. OUTPATIENT ANTIDIABETIC REGIMEN: * Metformin 500mg PO BID * HbA1c: 6.5% (03/12/18) ASSESSMENT: 03/21/18: * BSGs have been stable and within or near goal range for the past 24 hours. * Expect that insulin may be D/C'd today or tomorrow if BSGs remain acceptable. 03/19/18 * Mr Ryan is a 42yo type 2 diabetic male, POD #0 s/p L TKA. * Patient received Dexamethasone 8mg PO x1 dose pre-op this morning. * Patient initiated on basal/bolus insulin regimen post-op in an attempt to avoid significant steroid-induced hyperglycemia. PLAN FOR INPATIENT GLYCEMIC CONTROL: * Metformin 500mg PO BID with meals * Basal insulin * none needed at this time * Bolus insulin * NovoLog per scale ACHS or Q6hrs while NPO * Goal Range: Low 110 mg/dL - High 140 mg/dL * Correction Factor: 30 mg/dL/unit * Nutritional / Prandial insulin per carb ratio of 1 unit per 10 grams CHO consumed PLAN FOR DISCHARGE: * Recent A1c (6.5%) indicates acceptable glycemic control as an outpt. * Expect that pt may resume home regimen on discharge.
[2018-03-21] MEDS ORDERED: KETOROLAC TROMETHAMINE 30 MG/ML VIAL IV STA (12:15)
[2018-03-21] MEDS ORDERED: OXY/15 PO (15:30)
[2018-03-21] MEDS ORDERED: ACET-24 PO (15:30)
[2018-03-21] MEDS ORDERED: CLB200 PO (15:30)
[2018-03-21] MEDS ORDERED: ASPI81TA28 PO (15:30)
[2018-03-21] MEDS ORDERED: NALO1SPR SC (15:30)
[2018-03-21] MEDS ORDERED: SENN-61 PO (15:30)
[2018-03-21 15:36] VITALS: BP 129/82; PULSE 76; TEMP 36.9; O2SAT 99
--- NOTE | 2018-03-21 15:42 | Discharge Instructions ---
Discharge Instructions Date of Service March 21, 2018. Admission Reason for Admission: Left Knee Osteoarthritis Discharge Discharge Diagnosis / Problem: Left Knee Djd Discharge Goals Goal(s): Decrease discomfort, Improve function, Increase independence Activity Recommendations Activity Limitations: per Instructions/Follow-up section Weightbearing Status: Left weightbearing (as tolerated) . Instructions / Follow-Up Instructions / Follow-Up ACTIVITY RECOMMENDATIONS: SELF CARE INSTRUCTIONS AFTER TOTAL KNEE REPLACEMENT A. You may need to continue a physical therapy program after discharge from the hospital. There are several options available to you. Your doctor will assist you in selecting the best one for you. 1. An out-patient facility 2 to 3 times a week for therapy or home therapy. 2. Continue working on all exercises taught to you in the hospital. Your goals should be to increase bending of your knee to 90 degrees and beyond and to fully straighten your knee. B. You may progress at your own pace from walking with a walker or crutches to a cane; then to no assistive devices. C. Make walking a part of your daily routine. Be up as much as comfortable with rest periods throughout the day. Rest with leg elevation is very important. Use the ice wrap frequently for the first 3-4 weeks. D. There are no restrictions on activities. You may ride in a car, shop, participate in gas station service attendant and all social activities. E. Wear the long elastic stockings (ESMER hose) 20 hours a day for 2 weeks after surgery. They can be removed several times a day for laundering and for a bath. F. You may shower, no tub baths until cleared by your doctor. SPECIAL CARE INSTRUCTIONS: VERY IMPORTANT TO READ AND REVIEW A. There are a few signs you need to watch for after you are home. Call [facility] [place] if you notice any of the followin. Increased severe knee pain. Some pain is expected especially when you exercise. 2. Increased swelling in your leg or knee; pain or swelling of the calf muscle in either lower leg. 3. Any fluid drainage from the incision. 4. Shortness of breath or chest pain. B. Please call [facility] [place] at if you have any concerns or questions about your operation or recovery. The doctor or his nurse will return your call promptly. C. You must take antibiotics before dental work, bladder, bowel or other surgery. Your doctor will provide you with a permanent care to carry describing this precaution. IMPORTANT: * A NARCAN PRESCRIPTION HAS BEEN GIVEN TO YOU. USE THIS WE HAD DISCUSSED FOR INCREASED DROWSINESS DUE TO NARCOTIC/MEDICATION USE. INSTRUCTIONS WILL BE GIVEN TO YOU AT THE PHARMACY WELL ON HOW TO USE THE NARCAN AUTOINJECTORS * REMEMBER TO TAKE ASPIRIN, 81 MG, TWICE DAILY FOR 4 WEEKS UNLESS OTHERWISE DIRECTED. THIS IS YOUR BLOOD THINNER. * HIGH RISK PATIENTS MAY BE PRESCRIBED A STRONGER BLOOD THINNER. THIS WILL BE PROVIDED AT DISCHARGE. * CALL IF INCREASED PAIN, REDNESS, DRAINAGE OR FEVER GREATER THAT 101. * WEAR ESMER HOSE 20 HOURS PER DAY FOR 2 WEEKS. * Silverlon- This is a large adhesive bandage that contains silver ions. This helps your incision heal by fighting off bacteria and protecting it from the outside environment. You are permitted to shower with this dressing. This will remain on your incision for 7 days and then should be removed. Some visible blood or drainage through the dressing window is normal. If there is significant drainage or leaking noted before the 7 days notify your doctor's office immediately. Once removed, keep incision clean and dry. If there is any drainage or redness noted, please call your surgeon. . FOLLOW UP VISIT: If appointment is not already scheduled: Please call [facility] [place] to make a follow-up appointment for 2 weeks after your surgery at . Current Hospital Diet Patient's current hospital diet: Diabetes Type 2 Diet Discharge Diet Recommended Diet: Diabetes Type 2 Diet Procedures Procedures Performed: Left Total Knee Arthroplasty utilizing journey 2 patient matched total knee arthroplasty size 7 femur 6 tibia 10 polyethylene 35 oval patella Pending Studies Studies pending at discharge: no Laboratory Results Hemoglobin A1c Test 03/12/18 14:55 Range/Units Estimated Average Glucose 140 mg/dl Hemoglobin A1c 6.5 H 4.5-5.6 % Medical Emergencies . Who to Call and When: Medical Emergencies: If at any time you feel your situation is an emergency, please call 911 immediately. . Non-Emergent Contact Non-Emergency issues call your: Surgeon Call Non-Emergent contact if: temperature is above 101.5, your pain is not controlled, your pain is worsening, wound has increased drainage, wound has increased redness . "Provider Documentation" section prepared by Tylor Burdick. . [place] Drug Monitoring Program Search Results: patient reviewed within database, see additional documentation Drug Monitoring Findings: Pt receiving Oxycodone 15mg 5x/day for 2 weeks at a time. Pt sees Dr Torres in [place] for his narcotics. Pt's last rx given 03/13/18 for 14 days. Rx will be given upon dc but pt will need to follow up with Dr Torres for further narcotic prescriptions after appropriate post operative period is over. Narcan prescription placed on chart for patient.
[2018-03-21 16:29] VITALS: BP 129/82; PULSE 76; TEMP 36.9; O2SAT 99
[2018-03-21] MEDS ORDERED: KETOROLAC TROMETHAMINE 30 MG/ML VIAL IV SCH (18:00)
--- NOTE | 2018-03-24 20:53 | DISCHARGE SUMMARY ---
DISCHARGE DIAGNOSIS: Degenerative joint disease, left knee. SECONDARY DIAGNOSES: Hypertension, hypercholesterolemia, asthma, diabetes mellitus with A1c of 6.6, history of TIA, chronic back pain with use of chronic narcotics, history of pneumonia, depression, anxiety. CONSULTS: 1. Dr. Jarrod Breaux. 2. Tanesha Esposito PA-C/Miguelito Manzo MD COMPLICATIONS: None. PROCEDURES: Left total knee arthroplasty performed by Dr. Constantino on 03/19/2018. BRIEF HISTORY: As dictated in history and physical. HOSPITAL SUMMARY: The patient was admitted on the above date and had the above-noted surgery performed, which he tolerated well. Due to his chronic pain issues, he has been restarted on 10-15 mg of oxycodone p.o. q. 4 hours and OxyContin 10 mg p.o. b.i.d. as well as IV morphine. The OxyContin had been bumped up to 20 mg p.o. b.i.d. for further pain control. By the following morning on the first postoperative day, patient was feeling well, but was somewhat groggy that morning and had difficulty staying awake to respond to questions. His calves were soft and nontender. Neurovascularly is intact. He did have some weak dorsiflexion in the left foot. Capillary refill is less than 2 seconds. Dressings are clean, dry, and intact. Toes are mobile. Vital signs are stable with SBPs ranging from 121-163 being treated by medicine service. With the patient's chronic history of narcotic use, pain management was consulted and saw the patient later that morning. At the time of the visit with pain management, the patient was rating his pain at a 9/10. He stated that the OxyContin did not provide any additional relief and this was explained to him that he had only had 1 dose of the OxyContin and it may take another dose to help alleviate some of his pain. He had been on high dose opioids for 3 years including medications such as hydromorphone, Percocet, and fentanyl patches. The case was discussed with Dr. Manzo and with Dr. Tanesha Esposito and plans are to continue the current oxycodone 15 mg every 4 hours p.r.n. breakthrough pain and continue the OxyContin 20 mg p.o. b.i.d. Continue to urge the patient to ambulate and work with PT and OT and plans were to recommend OxyContin postoperatively for 2-3 weeks and then continue the oxycodone that he had been on chronically with work towards bit diminishing the dose. It was also recommended that the patient be discharged to home with Narcan prescription due to his high-risk opioid use and also risk of overdose. By the second postoperative day, as I routine to the floor, nursing asked me to see the patient due to low respirations, stated he was difficult to arouse and when I went back to see the patient, I found him sitting up in bed eating breakfast. The patient was answering all questions appropriately, but has slight slurred speech. Patient appeared comfortable and states he has sleep apnea and had surgery for this in the past? He was refusing CPAP at home. We discussed pain meds that he was taking currently at the hospital and he also stated that his normal morning ritual was very similar at home with him being very sluggish at home and also having the slurred aspect of his speech. He stated that he had been to the ER several times due to family worry that he was having another stroke; however, each time it has been proven negative. He had been in the process of getting a workup done by [facility] for some other tremors, etc. that he had, had post-CVA as well. We discussed whether we should continue the OxyContin, which he stated he felt that it did not help him. During the visit, he did not complain of pain anytime. During the visit, he discussed the fact that in the mornings again he was always groggy and he had talked about his pain medications off and on. His calves are soft, nontender. Neurovascularly is intact. Dressings were clean, dry and intact. Toes were mobile. Vital signs were stable. He was afebrile and he was progressing with his physical therapy. Pain management saw the patient later shortly after I had seen him and noted the increased lethargy more so than the previous day. Dr. Breaux had held his morning dose of Lyrica and as well his OxyContin was held. I discussed plans with pain management and plans will be to discontinue the OxyContin at this time and continue his OxyIR 15 mg every 4 hours. Toradol was added to his pain regimen for 24 hours and his IV morphine was continued for breakthrough pain. Plans were possible to discuss of him going to [facility], which he had been in the past. However, later that morning, I saw the patient undergoing his physical therapy and he was ambulating in the halls quite well. His physical therapy in the morning showed that he had flexion to 100 degrees of the knee and had ambulated 145 feet and afternoon therapy proved very similar doing 100 degrees of flexion, but increased his ambulation distance to 275 feet, he was progressing well. I will return to see the patient later that afternoon to consider discharge to home. Dr. Breaux had seen the patient early afternoon and had some ABGs drawn due to his decreased respiratory rate while he was sleeping. Dr. Breaux contacted me at approximately 1:30 p.m. and found the patient to be alert and oriented at the bedside using a cell phone. ABGs were normal. The patient was very conversant and I discussed that the patient should get in touch with his primary care physician to set up a sleep study for likely sleep apnea. He felt the patient was stable for discharge. Upon arriving the patient's room that afternoon, patient was lying in bed and was awake, alert, and oriented. He stated that he called his primary care physician, Dr. Torres of whom arrange to get him to see someone for sleep study in the near future. The patient had ambulated as noted above and he was currently comfortable and quite conversant. We discussed his chronic narcotic use and that he should not stray from using the narcotics as prescribed and discussed with him that Narcan prescription will be placed in the chart for him. We discussed what it was for and how it was to be used and stated that he knew about Narcan, but did not have any at home. He continued to remain stable at this time and was planned for him to be discharged to home that evening. Of note, I was contacted by the patient's pharmacy at 7 p.m. that evening after I left the hospital, which they had addressed the fact that they did not have the auto-inject Narcan available and patient is stable, was given nasal inhalation Narcan instead. He was thusly discharged to home on 03/21/2018. For further review, please see chart. LAB AND X-RAY DATA: As per chart. DISCHARGE INSTRUCTIONS: The patient was discharged to home in satisfactory condition on 03/21/2018. DIET: Diabetic. ACTIVITY: Weightbearing as tolerated, left lower extremity. Follow TKA instruction sheets and special care instructions as noted. Follow up with Dr. Constantino in 2 weeks. The patient to call for appointment if one has not been made for you. DISCHARGE MEDICATIONS: Acetaminophen 1000 mg p.o. q. 8 hours for 14 days, Celebrex 200 mg p.o. b.i.d., Narcan 0.4 mg inhaled nasally every 2-3 minutes given 2 inhalation devices, Senokot 17.2 mg p.o. at bedtime, oxycodone 15 mg p.o. q. 4 hours p.r.n. pain, aspirin 81 mg p.o. b.i.d. for 30 days afterwards resume once daily dosing. Resume home medications as listed. Stop taking acetaminophen/Tylenol arthritis.
== END 2018-03-21 18:38 | disposition home health service (06) | DRG 470 ==
LOC: C.ACU 06:26 → C.3E 06:45 → ENRESERV 11:38
PROVIDERS: ADMIT Orthopaedic Surgery; ATTEND Orthopaedic Surgery
PROC: 0SRU0J9 Replacement of Left Knee Joint, Femoral Surface with Synthetic Substitute, Cemented, Open Approach (ICD-10-PCS; principal; 2018-03-19 08:45)
DX: M17.12 Unilateral primary osteoarthritis, left knee (principal); I69.354 Hemiplegia and hemiparesis following cerebral infarction affecting left non-dominant side; F11.20 Opioid dependence, uncomplicated; I10 Essential (primary) hypertension; J45.909 Unspecified asthma, uncomplicated; E78.00 Pure hypercholesterolemia, unspecified; I25.10 Atherosclerotic heart disease of native coronary artery without angina pectoris; E11.9 Type 2 diabetes mellitus without complications; G89.29 Other chronic pain; M54.9 Dorsalgia, unspecified; F32.9 Major depressive disorder, single episode, unspecified; F41.9 Anxiety disorder, unspecified; E66.9 Obesity, unspecified; F17.220 Nicotine dependence, chewing tobacco, uncomplicated; Z79.82 Long term (current) use of aspirin; Z88.5 Allergy status to narcotic agent; Z68.38 Body mass index [BMI] 38.0-38.9, adult; Z87.01 Personal history of pneumonia (recurrent)

== ENCOUNTER 2023-11-09 05:18 | Inpatient (IN) ==
--- NOTE | 2023-11-09 06:13 | Emergency Department Note ---
Impression & Plan Chest pain, Hyperglycemia, Abnormal LFTs ED Provider Note ED Provider Note NAME: ALEJANDRINA LUJAN AGE:48 SEX: Male : 1975 ARRIVES VIA: EMS INFORMANT: Patient ED PROVIDER(s): Gayathri Dixon DO CHIEF COMPLAINT: Chest pain HPI: This is a 48-year-old male presents emergency department due to concern for chest pain which woke him up from sleep at 4 AM. He states it is central. He states it was sharp. He states the sharp quality would come and go however there is an underlying persistent dull discomfort additionally. He states he did have some radiation of pain in the left upper extremity, no radiation of the back, neck, or jaw. He denies any accompanying diaphoresis, dizziness, or shortness of breath. He states he did have some mild nausea but no vomiting. No accompanying abdominal pain. No change with position or exertion. He states this feels different from his usual GERD. No recent leg swelling, change in urine, change in stools, URI symptoms, or change in medication. Patient has had a prior stroke and does have left sided deficits from this. PAST MEDICAL HISTORY:See Below PAST SURGICAL HISTORY:See Below FAMILY HISTORY:See Below SOCIAL HISTORY:See Below HOME MEDICATIONS:See Below ALLERGIES:See Below VITALS:See Below PHYSICAL EXAMINATION: GENERAL: alert, well appearing, well nourished, no distress, non-toxic EYE EXAM: normal conjunctiva, PERRL and EOM's grossly intact OROPHARYNX: no exudate, no erythema, lips, buccal mucosa, and tongue normal and mucous membranes are moist NECK: supple, no nuchal rigidity, no adenopathy, non-tender LUNGS: Clear to auscultation. Normal chest wall mechanics, no w/r/r HEART: no murmurs, S1 normal and S2 normal ABDOMEN: abdomen soft, non-tender, normo-active bowel sounds, no masses, no rebound or guarding. BACK: Back is symmetrical on inspection and there is no deformity, no midline tenderness, no CVA tenderness. SKIN: no rashes, petechiae, orbruising UPPER EXTREMITIES: Left upper extremity with mild muscular atrophy particularly at the hand and prefers to hold it in flexion, right upper extremity with full range of motion and no abnormalities noted.nml pulses b/l. Normal sensation bilaterally. Some discomfort to the left upper extremity with palpation. No evidence of trauma. LOWER EXTREMITIES: No pitting edema. FROM, nml pulses b/l. NEURO EXAM: Normal sensorium, cranial nerves II-XII grossly intact, normal speech, no facial droop,nogross weakness of arms, no gross weakness of legs. Gross sensation intact. No ataxia. Vital Signs: reviewed and remarkable Differential Diagnosis: acute coronary syndrome, pericarditis, pulmonary embolus, aortic dissection, pneumonia, pneumothorax, musculoskeletal pain, shingles, GERD, GI bleed, as well as others were considered MEDICAL DECISION MAKING: This is a 48-year-old male who presents emergency department via EMS due to concern for chest pain. Patient was given an aspirin en route. Patient afebrile and vital signs stable. Labs drawn and sent, IV established, EKG and chest x-ray performed bedside interpreted by me and patient monitored on telemetry. Patient was given gentle IV fluid hydration, IV Tylenol, topical nitro, IV fentanyl, and IV Protonix. Patient noted to have a mild troponin elevation of 25, patient does have multiple risk factors for ACS and has had a prior cath which he states he was told had "minimal blockages". Patient also noted to have significant hyperglycemia without evidence for DKA. Due to concern for hyperglycemia and need for insulin drip as well as need for further cardiac evaluation, case discussed with hospitalist team for additional evaluation and management. Hospitalist did request CT of the abdomen and pelvis due to symptoms including abnormal LFTs noted with labs. This was added per their request. Patient started on insulin drip per protocol. All results discussed with the patient at bedside, he verbalized understanding was in agreement with the plan. Consultation(s): 0740: Discussed with [facility] hospitalist Dr. Sanders for additional evaluation and management. They requested CT of the abdomen and pelvis be added due to abnormal LFTs. ER Treatment Provided: See below Diagnostics Interpreted By Me: -ECG: Normal sinus at 90, normal axis, normal intervals, no acute ST/T wave changes, poor R wave progression; compared to EKG from January 10, 2023 -Cardiac Monitoring: An order was placed for continuous cardiac monitoring. The monitor shows a rate of 80 with normal sinus rhythm. -Laboratory studies: As stated above and show below. -Imaging studies: X-ray Chest: A single view study of the chest was reviewed and was negative for cardiomegaly, focal infiltrate, effusion, pulmonary edema, or wide mediastinum. Triage Nursing Note Reviewed Prior/Outside Records Reviewed -prior discharge summary reviewed Critical care: Critical care of 46 min performed to assess and manage high likelihood of life- threatening hyperglycemia, involving labs and imaging performed with assessment to evaluate chest pain and diagnosis with frequent reassessment. This time includes bedside time, treatment discussions with patient/family/consultants, documentation time and excludes procedure time. Past Med/Surg History Medical History Lumbar back pain with radiculopathy affecting left lower extremity Acute pain of left hip No known health problems Opioid dependence Pneumonia YOLA (acute kidney injury) History of coronary artery disease DM type 2 (diabetes mellitus, type 2) Opiate abuse, continuous Intellectual disability Suicidal ideation Ischemic stroke "with residual left hemiparesis" Dyslipidemia Anxiety Bipolar disorder JOSE (obstructive sleep apnea) Asthma Obesity GERD (gastroesophageal reflux disease) HTN (hypertension) Surgical History S/P TKR (total knee replacement) S/P left knee arthroscopy Hx of reconstruction of anterior cruciate ligament tear Family History Other No significant family history Social History Smoking Status: Former smoker Tobacco Type: Smokeless Tobacco (Dip or Chew) Second Hand Exposure: No; Do You Dip or Chew Tobacco: Yes; Tobacco Cessation Education Requested by Patient: No Hx Alcohol Use: No Hx Substance Use: No Preferred Language: Andorran Communication Ability: Effective 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 Beliefs That Will Affect Care: None Current Living Situation: Alone Other Information That Helps Us Care for You: No Feels Safe at Home: Yes Safety Concerns: Feels Safe At This Time Assistive Devices: None Allergies Allergies Allergy/AdvReac Type Severity Reaction Status Date / Time hydrocodone Allergy Intermediate hives, Verified 08/15/22 21:08 itching,VOMITING oak Allergy Intermediate ITCHY Verified 08/15/22 21:08 tramadol AdvReac Intermediate VOMITING Verified 08/15/22 21:08 Home Meds Home Medications Medication Instructions Recorded Confirmed albuterol sulfate 90 mcg/actuation 2 puff inhalation DIRECTED PRN 08/15/22 11/09/23 aerosol inhaler Shortness Of Breath Or Wheezing fluticasone propionate 50 2 spray intranasal BID 08/15/22 11/09/23 mcg/actuation nasal spray,suspension galcanezumab-gnlm 120 mg/mL 120 mg subcut MONTHLY 08/15/22 11/09/23 subcutaneous pen injector (Emgality Pen) metformin 500 mg tablet 500 mg PO BID 08/15/22 11/09/23 metoprolol succinate 100 mg 100 mg PO BID 08/15/22 11/09/23 tablet,extended release 24 hr montelukast 10 mg tablet 10 mg PO DAILY 08/15/22 11/09/23 (Singulair) pantoprazole 40 mg tablet,delayed 40 mg PO DAILY 08/15/22 11/09/23 release trazodone 150 mg tablet 150 mg PO HS 08/15/22 11/09/23 budesonide-formoterol HFA 160 2 puff inhalation BID 11/09/23 11/09/23 mcg-4.5 mcg/actuation aerosol inhaler clotrimazole-betamethasone 1 1 applic topical BID 11/09/23 11/09/23 %-0.05 % topical cream semaglutide 0.25 mg or 0.5 mg (2 0.5 mg subcut WK 11/09/23 11/09/23 mg/3 mL) subcutaneous pen injector (Ozempic) Previous Rx's Medication Instructions Recorded oxycodone-acetaminophen 10 mg-325 1 tab PO Q6H PRN pain #6 tabs 10/22/22 mg tablet (Percocet) Results & Data (ED) Vital Signs Vital Signs - 24 hr 11/09/23 05:25 11/09/23 05:33 11/09/23 05:51 Temperature 36.7 C Temperature Source Oral Pulse Rate 88 93 H Respiratory Rate 16 Blood Pressure 160/107 H Blood Pressure Mean 124 Pulse Oximetry 98 98 Oxygen Delivery Method Room Air Room Air Sepsis Recent Fever Within 48 Hours No Sepsis New/Unexplained Change in Mental Status No Sepsis Action Taken by Nursing No Action Required Laboratory Data 11/09/23 05:37 11/09/23 15:27 Lab Results 11/09/23 11/09/23 Range/Units 05:37 07:35 WBC 5.03 (4.8-10.8) K/ul RBC 5.65 (4.70-6.10) M/uL Hgb 17.1 (14.0-18.0) g/dl Hct 50.2 (42.0-52.0) % MCV 88.8 (80.0-100.0) fL MCH 30.3 (25.0-34.0) pg MCHC 34.1 (32.0-36.0) g/dL RDW Std Deviation 41.9 (36.4-46.3) fL RDW Coeff of [place]one 12.8 (11.5-14.5) % Plt Count 180 (130-400) K/uL MPV 11.1 (9.4-12.4) fL Immature Gran % (Auto) 0.6 % Neut % (Auto) 66.7 % Lymph % (Auto) 23.7 % [place] % (Auto) 6.8 % Eos % (Auto) 1.4 % Baso % (Auto) 0.8 % Neut # (Auto) 3.36 (1.40-6.50) K/uL Lymph # (Auto) 1.19 L (1.20-3.40) K/uL Dupage # (Auto) 0.34 (0.11-0.59) K/uL Eos # (Auto) 0.07 (0.00-0.50) K/uL Baso # (Auto) 0.04 (0.00-0.20) K/uL Immature Gran # (Auto) 0.03 (0.01-0.20) K/uL ESR 37 H (0-15) mm/hr Sodium 126 L (136-145) mmol/L Potassium 5.2 H (3.5-5.1) mmol/L Chloride 90 L (98-107) mmol/L Carbon Dioxide 24 (21-32) mmol/L Anion Gap 12 H (3-11) BUN 18 (6-23) mg/dl Creatinine 1.33 (0.6-1.4) mg/dl Est Cr Clr Drug Dosing 86.7 ml/min Est GFR ( Amer) 72.2 ml/min Est GFR (Non-Af Amer) 62.3 ml/min BUN/Creatinine Ratio 13.5 (10-20) Glucose 716 H* (70-99(Fasting)) mg/dl Estimat Average Glucose 415 mg/dl Hemoglobin A1c 16.1 H (4.5-5.6) % Calcium 9.7 (8.6-10.3) mg/dl Phosphorus 4.1 (2.5-4.9) mg/dl Magnesium 2.1 (1.7-2.4) mg/dl Total Bilirubin 0.5 (0.2-1.0) mg/dl AST 89 H (13-39) U/L ALT 138 H (7-52) U/L Alkaline Phosphatase 216 H (34-104) U/L Troponin I High Sens 27.5 H 304.7 H* D (0-20) pg/ml C-Reactive Protein 0.78 H (0-0.5) mg/dl Total Protein 7.7 (6.0-8.3) gm/dl Albumin 4.5 (3.4-5.0) gm/dl Globulin 3.2 (2.5-4.0) gm/dl Albumin/Globulin Ratio 1.4 (0.9-2) Triglycerides 1282 H (0-150) mg/dl Cholesterol 314 H (0-200) mg/dl LDL Cholesterol, Calc TNP VLDL Cholesterol, Calc TNP HDL Cholesterol 38 mg/dl Cholesterol/HDL Ratio 8.3 H (0-5) Lipase 32 (11-82) U/L Administered Medications Acetaminophen (Acetaminophen 325 Mg Tab) 650 mg PO Q4H PRN PRN Reason: Pain or Fever Stop: 12/09/23 08:38 Last Admin: 11/09/23 21:30 Dose: 650 mg Documented By: Admin: 11/09/23 16:40 Dose: 650 mg Documented By: YUNIOR Fluticasone Propionate (Fluticasone Propionate Na Spr 16 Gm Btl) 2 sprays CAROLEE BID [facility] Stop: 12/09/23 20:59 Last Admin: 11/09/23 21:30 Dose: Not Given Documented By: JUSTIN Fluticasone/Vilanterol (Fluticasone/Vilanterol 200/25mcg 14 Puffs/Inhaler) 1 puffs INH DAILY [facility] Stop: 12/09/23 16:59 Last Admin: 11/09/23 18:27 Dose: 1 puffs Documented By: YUNIOR Insulin Human Regular 250 (units/ Sodium Chloride) 250 mls @ 7.4 mls/hr IV .Q24H [facility]; Protocol Stop: 12/09/23 06:44 Last Titration: 11/10/23 03:34 Dose: 5.9 units/hr, 5.9 mls/hr Documented By: JUSTIN Co-signed By: DM Titration: 11/10/23 01:46 Dose: 7.4 units/hr, 7.4 mls/hr Documented By: JUSTIN Co-signed By: DM Titration: 11/10/23 00:43 Dose: 9.2 units/hr, 9.2 mls/hr Documented By: JUSTIN Co-signed By: DM Titration: 11/09/23 23:43 Dose: 7.7 units/hr, 7.7 mls/hr Documented By: JUSTIN Co-signed By: DM Titration: 11/09/23 22:38 Dose: 6.4 units/hr, 6.4 mls/hr Documented By: JUSTIN Co-signed By: DM Titration: 11/09/23 22:05 Dose: 6.4 units/hr, 6.4 mls/hr Documented By: JUSTIN Co-signed By: CP Titration: 11/09/23 20:34 Dose: 4.6 units/hr, 4.6 mls/hr Documented By: JUSTIN Co-signed By: DM Titration: 11/09/23 19:30 Dose: 3.8 units/hr, 3.8 mls/hr Documented By: JUSTIN Co-signed By: DM Titration: 11/09/23 18:31 Dose: 3.8 units/hr, 3.8 mls/hr Documented By: DTT Co-signed By: HERI Titration: 11/09/23 17:37 Dose: 3.8 units/hr, 3.8 mls/hr Documented By: DTT Co-signed By: HERI Titration: 11/09/23 16:32 Dose: 3.8 units/hr, 3.8 mls/hr Documented By: DTT Co-signed By: HERI Titration: 11/09/23 15:53 Dose: 3.8 units/hr, 3.8 mls/hr Documented By: DTT Co-signed By: KTS Titration: 11/09/23 14:33 Dose: 3.8 units/hr, 3.8 mls/hr Documented By: DTT Co-signed By: MPC Titration: 11/09/23 13:41 Dose: 3.8 units/hr, 3.8 mls/hr Documented By: YUNIOR Co-signed By: CHERYL Titration: 11/09/23 12:30 Dose: 4.8 units/hr, 4.8 mls/hr Documented By: MIGUEL ANGEL Co-signed By: RICHARD Titration: 11/09/23 11:20 Dose: 4 units/hr, 4 mls/hr Documented By: JOELLEN Co-signed By: OL Titration: 11/09/23 10:25 Dose: 5 units/hr, 5 mls/hr Documented By: JOELLEN Co-signed By: NRBrynn Titration: 11/09/23 10:18 Dose: 5 units/hr, 5 mls/hr Documented By: JOELLEN Co-signed By: RONNI Admin: 11/09/23 08:17 Dose: 10 units/hr, 10 mls/hr Documented By: ELODIA Co-signed By: ENRIQUE Sodium Chloride (Nss) 1,000 mls @ 100 mls/hr IV .Q10H [facility] Last Admin: 11/10/23 00:57 Dose: 100 mls/hr Documented By: Infusion: 11/10/23 00:57 Dose: Infused Documented By: Admin: 11/09/23 15:22 Dose: 100 mls/hr Documented By: YUNIOR Insulin Aspart (Insulin Aspart Per Unit Charge) 0 units SC ACHS [facility] Stop: 12/09/23 11:59 Last Admin: 11/09/23 22:03 Dose: 10 units Documented By: JUSTIN Co-signed By: JONATHAN Admin: 11/09/23 18:30 Dose: Not Given Documented By: Admin: 11/09/23 14:37 Dose: 14 units Documented By: YUNIOR Co-signed By: KATHY Metoprolol Succinate (Metoprolol Succ 50mg Ext Rel Tab) 100 mg PO BID [facility] Stop: 12/09/23 20:59 Last Admin: 11/09/23 22:20 Dose: 100 mg Documented By: JUSTIN Miscellaneous (Pending Order) 1 each N/A Q1H [facility] Stop: 12/09/23 17:59 Last Admin: 11/09/23 18:31 Dose: Not Given Documented By: YUNIOR Nitroglycerin (Nitroglycerin 2% Ointment 30gm Tube) 0.5 inch EXT Q6H [facility] Stop: 12/09/23 09:14 Last Admin: 11/10/23 04:12 Dose: 0.5 inch Documented By: Admin: 11/09/23 20:05 Dose: 0.5 inch Documented By: Admin: 11/09/23 15:24 Dose: 0.5 inch Documented By: Admin: 11/09/23 10:17 Dose: 0.5 inch Documented By: JOELLEN Oxycodone/Acetaminophen (Oxycodone/Acetaminophen 10-325 Tab) 1 tab PO Q6H PRN PRN Reason: Pain Stop: 11/23/23 09:22 Last Admin: 11/09/23 23:06 Dose: 1 tab Documented By: Admin: 11/09/23 17:23 Dose: 1 tab Documented By: YUNIOR Pantoprazole Sodium (Pantoprazole 40 Mg Tab) 40 mg PO DAILY [facility] Stop: 12/10/23 08:59 Last Admin: 11/09/23 19:59 Dose: 40 mg Documented By: JUSTIN Trazodone HCl (Trazodone Hcl 50 Mg Tab) 150 mg PO HS [facility] Stop: 12/09/23 20:59 Last Admin: 11/09/23 20:01 Dose: 150 mg Documented By: JUSTIN Discontinued Medications Enoxaparin Sodium (Enoxaparin Inj 40 Mg/0.4 Ml Syr) 40 mg SQ Q24H [facility] Stop: 12/09/23 08:59 Last Admin: 11/09/23 10:43 Dose: Not Given Documented By: JOELLEN Fentanyl Citrate (Fentanyl Citrate Pf 100 Mcg/2 Ml Vial) 50 mcg IV Q15M PRN PRN Reason: Pain Stop: 11/23/23 06:37 Last Admin: 11/09/23 06:48 Dose: 50 mcg Documented By: MORAIMA Fentanyl Citrate (Fentanyl Citrate Pf 100 Mcg/2 Ml Vial) Confirm Administered Dose 100 mcg .ROUTE .STK-MED ONE Stop: 11/09/23 11:17 Last Increment: 11/09/23 12:27 Dose: 75 mcg Documented By: MIGUEL ANGEL Heparin Sodium (Porcine) (Heparin (Porcine) 1000 Unit/Ml 10 Ml (Accounting Methods Analyst Use Only)) Confirm Administered Dose 10,000 units .ROUTE .STK-MED ONE Stop: 11/09/23 11:17 Last Admin: 11/09/23 12:27 Dose: 7,000 units Documented By: MIGUEL ANGEL Heparin Sodium/Dextrose (Heparin Iv Adult Wt-Based Low-Dose *No* Initial Bolus Protocol) 1 each IV Q15M [facility]; Protocol Stop: 12/09/23 09:29 Last Admin: 11/09/23 10:43 Dose: Not Given Documented By: Admin: 11/09/23 10:43 Dose: Not Given Documented By: Admin: 11/09/23 10:23 Dose: Not Given Documented By: Admin: 11/09/23 10:21 Dose: Not Given Documented By: JOELLEN Heparin Sodium/Sodium Chloride (Heparin In Nss Infusion 1000 Unit/500 Ml (2 U/Ml) Bag) Confirm Administered Dose 3,000 units IV .STK-MED ONE Stop: 11/09/23 11:17 Last Admin: 11/09/23 12:06 Dose: 3,000 units Documented By: CEASAR Pantoprazole Sodium 40 mg/ (Syringe) 10 mls @ 5 mls/min IV NOW ONE Stop: 11/09/23 06:40 Last Admin: 11/09/23 07:33 Dose: 5 mls/min Documented By: ELODIA Parenteral Electrolytes (Plasma-Lyte A Ph 7.4) 1,000 mls @ 999 mls/hr IV .Q1H1M ONE Stop: 11/09/23 07:57 Last Infusion: 11/09/23 08:16 Dose: Infused Documented By: Admin: 11/09/23 07:15 Dose: 999 mls/hr Documented By: ELODIA Insulin Human Regular 10 units (/ Syringe) 10 mls @ 5 mls/min IV 0730 ONE Stop: 11/09/23 07:31 Last Admin: 11/09/23 08:17 Dose: 5 mls/min Documented By: ELODIA Co-signed By: ENRIQUE Parenteral Electrolytes (Plasma-Lyte A Ph 7.4) 1,000 mls @ 125 mls/hr IV .Q8H [facility] Stop: 12/09/23 08:14 Last Infusion: 11/09/23 13:59 Dose: Infused Documented By: Admin: 11/09/23 08:17 Dose: 125 mls/hr Documented By: ELODIA Heparin Sodium/Dextrose (Heparin Sodium/Dextrose) 25,000 units in 500 mls @ 20 mls/hr IV .Q24H [facility]; Protocol Stop: 12/09/23 09:44 Last Titration: 11/09/23 14:00 Dose: Infused Documented By: YUNIOR Co-signed By: CHERYL Admin: 11/09/23 10:22 Dose: 1,000 units/hr, 20 mls/hr Documented By: JOELLEN Co-signed By: RONNI Insulin Aspart (Insulin Aspart Per Unit Charge) 0 units SC Q6 [facility] Stop: 12/09/23 11:59 Last Admin: 11/09/23 13:44 Dose: Not Given Documented By: YUNIOR Insulin Glargine (Lantus Per Unit Charge) 25 units SC 1600 [facility] Stop: 11/09/23 17:00 Last Admin: 11/09/23 16:41 Dose: 25 units Documented By: YUNIOR Co-signed By: HERI Ioversol (Optiray 320 500ml) 94 ml IV ONCE ONE Stop: 11/09/23 08:40 Last Admin: 11/09/23 08:39 Dose: 94 ml Documented By: PARKER Ioversol (Optiray 350) Confirm Administered Dose 1 ml .ROUTE .STK-MED ONE Stop: 11/09/23 12:05 Last Admin: 11/09/23 12:28 Dose: 95 ml Documented By: CEASAR Metoprolol Succinate (Metoprolol Succ 50mg Ext Rel Tab) 50 mg PO NOW STA Stop: 11/09/23 16:59 Last Admin: 11/09/23 17:39 Dose: 50 mg Documented By: YUNIOR Metoprolol Tartrate (Metoprolol Tartrate 1 Mg/Ml Vial) 5 mg IV NOW STA Stop: 11/09/23 11:10 Last Admin: 11/09/23 11:26 Dose: 5 mg Documented By: JOELLEN Midazolam HCl (Midazolam Hcl 1 Mg/Ml 2ml Vial) Confirm Administered Dose 2 mg .ROUTE .STK-MED ONE Stop: 11/09/23 11:17 Last Admin: 11/09/23 12:27 Dose: 2 mg Documented By: MIGUEL ANGEL Midazolam HCl (Midazolam Hcl 1 Mg/Ml 2ml Vial) Confirm Administered Dose 2 mg .ROUTE .STK-MED ONE Stop: 11/09/23 12:09 Last Increment: 11/09/23 12:27 Dose: 1 mg Documented By: [facility] Miscellaneous (Stat Iv Infusion Titration Per Protocol) 1 each N/A NOW STA Stop: 11/09/23 06:42 Last Admin: 11/09/23 08:21 Dose: Not Given Documented By: ELODIA Nicardipine HCl (Nicardipine Hcl Inj 2.5 Mg/Ml 10 Ml Amp) Confirm Administered Dose 25 mg .ROUTE .STK-MED ONE Stop: 11/09/23 11:17 Last Admin: 11/09/23 12:06 Dose: 25 mg Documented By: CEASAR Nitroglycerin (Nitroglycerin 2% Ointment 30gm Tube) 1 inch EXT NOW STA Stop: 11/09/23 06:39 Last Admin: 11/09/23 06:48 Dose: 1 inch Documented By: MORAIMA Nitroglycerin/Dextrose (Nitroglycerin/D5w 100mcg/Ml 20ml Syr) Confirm Administered Dose 2,000 mcg .ROUTE .STK-MED ONE Stop: 11/09/23 11:17 Last Admin: 11/09/23 12:06 Dose: 2,000 mcg Documented By: CEASAR Ticagrelor (Ticagrelor 90 Mg Tab) Confirm Administered Dose 90 mg .ROUTE .STK- MED ONE Stop: 11/09/23 11:29 Last Admin: 11/09/23 12:09 Dose: 90 mg Documented By: [facility] Ticagrelor (Ticagrelor 90 Mg Tab) Confirm Administered Dose 90 mg .ROUTE .STK- MED ONE Stop: 11/09/23 12:08 Last Admin: 11/09/23 12:08 Dose: 90 mg Documented By: [facility] Imaging Data Radiologist's Impression: Chest X-Ray 11/09/23 05:32 XR chest 1V portable CLINICAL HISTORY: Chest pain, nonspecific. COMPARISON STUDY: Chest radiograph January 20, 2023. Chest CT December 03, 2016. FINDINGS: Lung volumes are normal. Lungs are clear. There is no pneumothorax or pleural effusion. Cardiac size is normal. Mediastinal contours are normal. There is no evidence for pulmonary edema. IMPRESSION: No acute cardiopulmonary findings. ACT 112: Negative or not required by law. Electronically signed by: Jacoby Limon M.D. 11/09/2023 6:50 AM Discharge Plan Visit Data Chief Complaint: Chest Pain Stated Complaint: CHEST PAIN ED Provider: Gayathri Dixon Discharge Problem: Chest pain, Hyperglycemia, Abnormal LFTs Patient Disposition: Admitted As Inpatient Discharge Instructions Interventions: ED Discharge Assessment Last Done: 11/09/23 08:40
[2023-11-09 06:15] LABS: Basophils # (auto) 0.04 K/uL (0.00-0.20); Basophils % (auto) 0.8 %; Eosinophils # (auto) 0.07 K/uL (0.00-0.50); Eosinophils % (auto) 1.4 %; Hematocrit (blood only) 50.2 % (42.0-52.0); Hemoglobin 17.1 g/dl (14.0-18.0); Immature Granulocytes # (auto) 0.03 K/uL (0.01-0.20); Immature Granulocytes % (auto) 0.6 %; Lymphocytes # (auto) 1.19 K/uL (1.20-3.40); Lymphocytes % (auto) 23.7 %; Mean Corpuscular Hemoglobin 30.3 pg (25.0-34.0); Mean Corpuscular Hgb Conc 34.1 g/dL (32.0-36.0); Mean Corpuscular Volume 88.8 fL (80.0-100.0); Mean Platelet Volume 11.1 fL (9.4-12.4); Monocytes # (auto) 0.34 K/uL (0.11-0.59); Monocytes % (auto) 6.8 %; Neutrophils # (auto) 3.36 K/uL (1.40-6.50); Neutrophils % (auto) 66.7 %; Platelet Count 180 K/uL (130-400); RDW Coefficient of Variation 12.8 % (11.5-14.5); RDW Standard Deviation 41.9 fL (36.4-46.3); Red Blood Count 5.65 M/uL (4.70-6.10); White Blood Count 5.03 K/ul (4.8-10.8)
[2023-11-09 06:32] LABS: Alanine Aminotransferase 138 U/L (7-52); Albumin Globulin Ratio 1.4 (0.9-2); Albumin Level 4.5 gm/dl (3.4-5.0); Alkaline Phosphatase 216 U/L (34-104); Anion Gap 12 (3-11); BUN Creatinine Ratio 13.5 (10-20); Bilirubin,Total 0.5 mg/dl (0.2-1.0); Blood Urea Nitrogen 18 mg/dl (6-23); Calcium 9.7 mg/dl (8.6-10.3); Carbon Dioxide 24 mmol/L (21-32); Chloride 90 mmol/L (98-107); Creatinine Clr Calc Pharmacy 86.7 ml/min; Est GFR (African American) 72.2 ml/min; Est GFR (Non-African American) 62.3 ml/min; Globulin 3.2 gm/dl (2.5-4.0); Glucose 716 mg/dl (70-99(Fasting)); Lipase 32 U/L (11-82); Sodium 126 mmol/L (136-145); Total Protein 7.7 gm/dl (6.0-8.3); Troponin I High Sensitivity 27.5 pg/ml (0-20)
[2023-11-09] MEDS ORDERED: fentaNYL citrate PF 100 MCG/2 ML VIAL IV PRN (06:38)
[2023-11-09] MEDS ORDERED: NITROGLYCERIN 2% OINTMENT 30GM TUBE EXT STA (06:38)
[2023-11-09] MEDS ORDERED: PANTOprazole 40 MG in SYRINGE 0 ML IV ONE (06:39)
[2023-11-09] MEDS ORDERED: PHARMACY GLYCEMIC MGMT CONSULT PRN (06:41)
[2023-11-09] MEDS ORDERED: GLUCAGON FOR INJ 1 MG VIAL SQ PRN (06:41)
[2023-11-09] MEDS ORDERED: CARBOHYDRATES FOR HYPOGLYCEMIA PO PRN (06:41)
[2023-11-09] MEDS ORDERED: GLUCOSE 10 TAB/TUBE PO PRN (06:41)
[2023-11-09] MEDS ORDERED: STAT IV Infusion **Titration per Protocol STA (06:41)
[2023-11-09] MEDS ORDERED: DEXTROSE 50% 50 ML SYRINGE IV PRN (06:41)
[2023-11-09] MEDS ORDERED: GLUCOSE 40% GEL 15 GM TUBE PO PRN (06:41)
[2023-11-09 06:44] LABS: Potassium 5.2 mmol/L (3.5-5.1)
--- NOTE | 2023-11-09 06:52 | XRay Report ---
XR chest 1V portable CLINICAL HISTORY: Chest pain, nonspecific. COMPARISON STUDY: Chest radiograph January 20, 2023. Chest CT December 03, 2016. FINDINGS: Lung volumes are normal. Lungs are clear. There is no pneumothorax or pleural effusion. Car diac size is normal. Mediastinal contours are normal. There is no evidence for pulmonary edema. IMPRESSION: No acute cardiopulmonary findings. ACT 112: Negative or not required by law. Electronically signed by: Jacoby Limon M.D. 11/09/2023 6:50 AM
[2023-11-09 06:54] LABS: Aspartate Aminotransferase 89 U/L (13-39)
[2023-11-09] MEDS ORDERED: PLASMA-LYTE A 1,000 ML IV ONE (06:57)
[2023-11-09] MEDS ORDERED: INSULIN HUMAN REGULAR IV BOLUS 10 UNITS in SYRINGE 0 ML IV ONE (07:30)
--- NOTE | 2023-11-09 07:41 | History & Physical Report ---
Date of Service November 09, 2023 Assessment & Plan (1) Septal myocardial infarction: (2) Chest pain: (3) Hyperglycemia: (4) Uncontrolled diabetes mellitus with hyperglycemia: (5) Abnormal LFTs: (6) Idiopathic polyneuropathy: (7) Lumbosacral radiculopathy: Plan Mr. 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 Patient with multiple barriers regarding medication compliance, more concerning, compliance for DAPT. #NSTEMI #Obstructive CAD with PCI of proximal first diagonal with single drug-eluting stent. -Multiple risk factors: HLD, HTN, uncontrolled DM, active tobacco use (dip) -ED visit 2017 with "bruising" from plavix, will not take, adamantly declines -Continue ASA, plavix, and atorvastatin 80mg -Will determine Brilinta coverage and discuss BID dosing; however, risk of bruising is present, the risk of in-stent thrombosis is very real, in which patient's response is "if I , I " -will continue to encourage and reinforance DAPT compliance regardless of agent -Continue previous home metoprolol 100mg BID xl dosing (reports noncompliance) #Uncontrolled DMTII -Reports being on metformin, but put the bottles away -States he take ozempic 0.5mg on Mondays; refuses insulin, but will consider pills if "necessary A1C 16%, glucose 700s, responsive to insulin, no DKA -Glycemic consult with diabetes education initially on insulindrip, transitioned to glargin 25 U with SSI #HLD -Resuming statin at 80mg, will continue to reinforce and educate, patient is adament for prescription for 40mg and will not take home 80mg. -Continue to educate, additional medication will increase pill burden and hinder need to reinforce compliance with DAPT at this time #Transaminitis #Hepatic steatosis on imaging -potential related to ACs event, as well as fatty liver noted on CT -no active symptoms -Trend CMP #Chronic pain on opioids #Lumbar radiculopathy -Continue home regimen #CVA c/b left hemiparesis -Left upper extremity with hand contracture, chronic 2017 -Discuss with case management Home health nurse for medication assistance (pill boxes?) -Continue ASA/Statin #Asthma Stable, reports only as needed albuterol, no daily inhalers albuterol prn Flonase per patient request #GERD Protonix #Bipolar Disorder multiple psych med history, none of which patient continues out side of trazodone -continue trazodone 150mg qhs PT/OT Carb diet/HH: patient receiving outside hospital food. Over an hour was spent discussing compliance and concerns for in-stent thrombosis. Patient verbalizes understanding, saying if any medicine makes him bruise, it will just be "his time." Will continue efforts for education daily patient still wishes full code DVT scds, lovenox will encourage both given history of dvt Admission and Anticipated Discharge Date Admission Date: Time spent evaluating patient, direct bedside care, chart review, placing orders, interpretation of diagnostic studies, discussion with consultants, patient, and family members, as well as other required patient management activities is 75 minutes. History of Present Illness Chief Complaint: Chest pain Primary Care Provider: Ugo Mclean DO Mr. 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 Patient described it as a crushing substernal pressure with left sided radiation. The pain was relieved with nitropaste and aspirin as well as IV fentanyl. In the ED, vitals were notable for BP of 150-170s, HRs in 90-100s, and O2 sat of high 90s on room air Labs notable for elevated LFTs, and trop which went from 27.5 to 304.7 as well as glucose in 700s Imaging revealed fatty litter EKG on admission with concerns of possible infarction ED interventions: insulin drip Patient was evaluated by bedside initially and story was concerning. Echo ordered. After exam, Cardiology was consulted given concern of ACS. cath lab activated after Dr. Calderon reviewed ECHO and was concerned for looming infarction. Kendy ent was found to have obstructive CAD with PCI of proximal first diagonal with single drug-eluting stent. Further history was obtained from patient. Patient states he has not taken any of his medications in months, outside of ozempic and omeprazole. He states he simply has too many medications and the bottles are too hard to open with his hemiparesis, so he "put the bottles aside." He states he will not take any psych meds and will take his trazodone and inhalers. He reports atorvastatin has to be 40mg, as 80 mg "causes medical problems and his father from it." Further discussion involved general compliance with at the minimum aspirin and plavix. Patient states he "will not take plavix ever" as it cause bruising and he will not leave his house with bruises. Patient states he will not take insulin at home. Patient states he will consider pills possibly. He notes that he cannot use a glucometer because of his disability. Patient to be admitted to PCU/tele for further evaluation and management of NSTEMI s/p stent placement. Allergies Allergy/AdvReac Type Severity Reaction Status Date / Time hydrocodone Allergy Intermediate hives, Verified 08/15/22 21:08 itching,VOMITING oak Allergy Intermediate ITCHY Verified 08/15/22 21:08 tramadol AdvReac Intermediate VOMITING Verified 08/15/22 21:08 Home Medications Medication Instructions Recorded Confirmed Type albuterol sulfate 90 mcg/actuation 2 puff inhalation DIRECTED PRN 08/15/22 11/09/23 History aerosol inhaler Shortness Of Breath Or Wheezing fluticasone propionate 50 2 spray intranasal BID 08/15/22 11/09/23 History mcg/actuation nasal spray,suspension galcanezumab-gnlm 120 mg/mL 120 mg subcut MONTHLY 08/15/22 11/09/23 History subcutaneous pen injector (Emgality Pen) metformin 500 mg tablet 500 mg PO BID 08/15/22 11/09/23 History metoprolol succinate 100 mg 100 mg PO BID 08/15/22 11/09/23 History tablet,extended release 24 hr montelukast 10 mg tablet 10 mg PO DAILY 08/15/22 11/09/23 History (Singulair) pantoprazole 40 mg tablet,delayed 40 mg PO DAILY 08/15/22 11/09/23 History release trazodone 150 mg tablet 150 mg PO HS 08/15/22 11/09/23 History oxycodone-acetaminophen 10 mg-325 1 tab PO Q6H PRN pain #6 tabs 10/22/22 11/09/23 Rx mg tablet (Percocet) budesonide-formoterol HFA 160 2 puff inhalation BID 11/09/23 11/09/23 History mcg-4.5 mcg/actuation aerosol inhaler clotrimazole-betamethasone 1 1 applic topical BID 11/09/23 11/09/23 History %-0.05 % topical cream semaglutide 0.25 mg or 0.5 mg (2 0.5 mg subcut WK 11/09/23 11/09/23 History mg/3 mL) subcutaneous pen injector (Ozempic) Past Med/Surg History Medical History Lumbar back pain with radiculopathy affecting left lower extremity Acute pain of left hip No known health problems Opioid dependence Pneumonia YOLA (acute kidney injury) History of coronary artery disease DM type 2 (diabetes mellitus, type 2) Opiate abuse, continuous Intellectual disability Suicidal ideation Ischemic stroke "with residual left hemiparesis" Dyslipidemia Anxiety Bipolar disorder JOSE (obstructive sleep apnea) Asthma Obesity GERD (gastroesophageal reflux disease) HTN (hypertension) Surgical History S/P TKR (total knee replacement) S/P left knee arthroscopy Hx of reconstruction of anterior cruciate ligament tear Family History Other No significant family history Social History Smoking Status: Former smoker Tobacco Type: Smokeless Tobacco (Dip or Chew) Second Hand Exposure: No; Do You Dip or Chew Tobacco: Yes; Tobacco Cessation Education Requested by Patient: No Hx Alcohol Use: No Hx Substance Use: No Preferred Language: Khmer Communication Ability: Effective Sample Builder Required: No Beliefs That Will Affect Care: None Current Living Situation: Alone Other Information That Helps Us Care for You: No Feels Safe at Home: Yes Safety Concerns: Feels Safe At This Time Assistive Devices: None Review of Systems Review of Systems: Constitutional: (-) fever/chills, (-) recent loss of weight, (-) appetite changes, (-) night sweats. Head: (-) headache, (-) dizziness. Eye: (-) blurring of vision, (-) double vision, (-) redness. Ear: (-) hearing loss, (-) discharge, (-) vertigo Nose: (-) discharge, (-) bleeding, (-) congestion, (-) post nasal drip. Throat: (-) sore throat, (-) hoarseness of voice, (-) odynophagia. Cardiovascular: (++) chest pain, (-) palpitations, (-) syncope, (-) orthopnea, (-) PND, (-) leg swelling. Respiratory: (-) shortness of breath, (-) cough, (-) wheezing, (-) hemoptysis. Neuro: (-) weakness in extremities, (-) numbness, (-) tingling, (-) tremor. Gastrointestinal: (-) belly pain, (-) belly distension, (-) nausea, (-) vomiting, (-) diarrhea, (-) constipation, (-) na, (-) hematemesis, (-) hematochezia, (-) bowel incontinence Genitourinary: (-) hematuria, (-) dysuria, (-) polyuria, (-) hesitancy, (-) frequency, (-) urinary incontinence. Musculoskeletal: (-) myalgia, (-) arthralgia. Skin: (-) rashes. Endocrine: (-) heat/cold intolerance. Psychiatry: (-) depression, (-) hallucination. Physical Exam Physical Exam: GENERAL APPEARANCE: AxOx4, slightly disheveled and uncomfortable appearing male, chewing tobacco in mouth HEENT: NC, AT. MMM. EOMI, clear conjunctiva, oropharynx clear. NECK: Supple without lymphadenopathy. No stiffness or restricted ROM. HEART:tachycardic, no rub/gallop LUNGS: CTAB, moving air well. No crackles or wheezes are heard. ABDOMEN: Soft, nontender, nondistended with good bowel sounds heard. BACK: No CVAT, no obvious deformity. EXTREMITIES: Without cyanosis, clubbing or edema. NEUROLOGICAL: Grossly nonfocal. Alert and oriented, moving all 4 extremities, left extremity with 3/5 weakness and contracture of hand Skin: Warm and dry without any rash. Results & Data Results & Data Vital Signs (Past 12 Hours) Vital Signs Temp Pulse Resp BP Pulse Ox O2 Del Method 11/09/23 05:51 98 Room Air 11/09/23 05:33 93 H 11/09/23 05:25 36.7 C 88 16 160/107 H 98 Room Air Laboratory Results Short CBC 11/09/23 Range/Units 05:37 WBC 5.03 (4.8-10.8) K/ul Hgb 17.1 (14.0-18.0) g/dl Hct 50.2 (42.0-52.0) % Plt Count 180 (130-400) K/uL BMP 11/09/23 11/09/23 11/09/23 05:37 10:22 15:27 Sodium 126 L 134 L 135 L Potassium 5.2 H 4.0 D 3.8 Chloride 90 L 98 100 Carbon Dioxide 24 24 BUN 18 16 14 Creatinine 1.33 0.87 D 0.85 Glucose 716 H* 283 H 260 H Calcium 9.7 9.0 8.7 Liver Function 11/09/23 Range/Units 05:37 Total Bilirubin 0.5 (0.2-1.0) mg/dl AST 89 H (13-39) U/L ALT 138 H (7-52) U/L Alkaline Phosphatase 216 H (34-104) U/L Albumin 4.5 (3.4-5.0) gm/dl Urine 11/09/23 Range/Units Unknown Urine Color Yellow Urine Appearance Clear (Clear) Urine pH 7.0 (4.5-7.5) Ur Specific [place] 1.032 H (1.000-1.030) Urine Protein Negative (Negative) Urine Glucose (UA) 3+ H (Negative) Diagnostic Findings 1. Acute 99% proximal first diagonal stenosis 2. Mild to moderate nonculprit coronary artery disease 25% proximal, 30% distal LAD 30% ostial, 45% mid-distal circumflex. Small OM3 50% proximal 30% diffuse mid RCA Medications Administered Home Medications Medication Instructions Recorded Confirmed Last Taken albuterol sulfate 90 mcg/actuation 2 puff inhalation DIRECTED PRN 08/15/22 11/09/23 Unknown aerosol inhaler Shortness Of Breath Or Wheezing fluticasone propionate 50 2 spray intranasal BID 08/15/22 11/09/23 08/15/22 mcg/actuation nasal spray,suspension galcanezumab-gnlm 120 mg/mL 120 mg subcut MONTHLY 08/15/22 11/09/23 Unknown subcutaneous pen injector (Emgality Pen) metformin 500 mg tablet 500 mg PO BID 08/15/22 11/09/23 08/15/22 metoprolol succinate 100 mg 100 mg PO BID 08/15/22 11/09/23 08/15/22 tablet,extended release 24 hr montelukast 10 mg tablet 10 mg PO DAILY 08/15/22 11/09/23 08/15/22 (Singulair) pantoprazole 40 mg tablet,delayed 40 mg PO DAILY 08/15/22 11/09/23 08/15/22 release trazodone 150 mg tablet 150 mg PO HS 08/15/22 11/09/23 08/14/22 oxycodone-acetaminophen 10 mg-325 1 tab PO Q6H PRN pain #6 tabs 10/22/22 11/09/23 Unknown mg tablet (Percocet) budesonide-formoterol HFA 160 2 puff inhalation BID 11/09/23 11/09/23 Unknown mcg-4.5 mcg/actuation aerosol inhaler clotrimazole-betamethasone 1 1 applic topical BID 11/09/23 11/09/23 Unknown %-0.05 % topical cream semaglutide 0.25 mg or 0.5 mg (2 0.5 mg subcut WK 11/09/23 11/09/23 Unknown mg/3 mL) subcutaneous pen injector (Ozempic) Active Medications Generic Name Dose Route Start Last Admin Trade Name Freq PRN Reason Stop Dose Admin Insulin Human Regular 250 250 mls @ 3.8 mls/hr 11/09/23 06:45 11/09/23 15:53 units/ Sodium Chloride IV 12/09/23 06:44 3.8 units/hr .Q24H LIZETH 3.8 mls/hr Titration Protocol 3.8 UNITS/HR Sodium Chloride 1,000 mls @ 100 mls/hr 11/09/23 13:00 11/09/23 15:22 Nss IV 100 mls/hr .Q10H LIZETH Administration Insulin Aspart 0 units 11/09/23 14:30 11/09/23 14:37 Insulin Aspart Per Unit Charge SC 12/09/23 11:59 14 units ACHS LIZETH Administration Nitroglycerin 0.5 inch 11/09/23 09:15 11/09/23 15:24 Nitroglycerin 2% Ointment 30gm Tube EXT 12/09/23 09:14 0.5 inch Q6H LIZETH Administration
[2023-11-09] MEDS ORDERED: PLASMA-LYTE A 1,000 ML IV SCH (08:15)
[2023-11-09] MEDS: INSULIN REGULAR 250 UNITS in SODIUM CHLORIDE 0.9% 247.5 ML IV SCH (08:17)
[2023-11-09 08:25] LABS: Base Excess ABG 1.6 mEq/L (-9-1.8); HCO3 ABG 26 mmol/L (19-24); Oxygen Saturation ABG 97.9 % (90-95); PCO2 ABG 39 mmHg (35-46); PO2 ABG 91 mmHg (80-95); pH ABG 7.43 (7.35-7.45)
[2023-11-09 08:26] LABS: Allen Test Pos (Pos)
[2023-11-09] MEDS ORDERED: NITROGLYCERIN SL 0.4 MG/TAB TAB SL PRN (08:39)
[2023-11-09] MEDS ORDERED: ONDANSETRON INJ 2 MG/ML 2 ML VIAL IV PRN (08:39)
[2023-11-09] MEDS ORDERED: OPTIRAY 320 500ml IV ONE (08:39)
[2023-11-09 08:48] LABS: Magnesium 2.1 mg/dl (1.7-2.4); Phosphorus 4.1 mg/dl (2.5-4.9)
[2023-11-09] MEDS ORDERED: ENOXAPARIN INJ 40 MG/0.4 ML SYR SQ SCH (09:00)
--- NOTE | 2023-11-09 09:02 | CT Scan Report ---
CT OF THE ABDOMEN AND PELVIS WITH CONTRAST CLINICAL HISTORY: Abnormal liver function tests. COMPARISON STUDY: CT of the pelvis October 22, 2022. CT of the abdomen and pelvis June 30, 2015. TECHNIQUE: Following IV administration of 94 mL of Optiray, axial images of the abdomen and pelvis we re obtained from the lung bases to the proximal femurs. Images were reviewed in the axial, sagittal, and coronal planes. IV contrast was administered without complication. Automated exposure control wa s utilized for the study. A dose lowering technique was utilized adhering to the principles of ALARA . CT DOSE: 1570.77 mGy.cm FINDINGS: Lung bases are unremarkable. No pneumatosis, free air or portal venous gas is present. Ther e is moderate hepatic steatosis and moderate hepatomegaly. Several areas of fatty sparing are present . No hepatic lesions are present. There is no biliary or pancreatic ductal dilatation. Spleen, adrena l glands, kidneys and pancreas are unremarkable. There no hydronephrosis. The main, left and right po rtal veins are patent. Caliber and wall thickness of small and large bowel are normal. The appendix i s normal. Bladder is distended. There is no hydronephrosis. There are no urinary calculi. No lymphade nopathy. Major vessels are patent. No ascites. IMPRESSION: 1. Moderate hepatic steatosis and hepatomegaly. Several foci of fatty sparing. No hepatic lesions. No biliary ductal dilatation. 2. No bowel obstruction. No bowel wall thickening. Normal appendix. 3. Distended bladder. No hydronephrosis. ACT 112: Negative or not required by law. Electronically signed by: Jacoby Limon M.D. 11/09/2023 9:00 AM
[2023-11-09 09:04] LABS: Estimated Average Glucose 415 mg/dl; Hemoglobin A1C 16.1 % (4.5-5.6)
[2023-11-09] MEDS ORDERED: HEPARIN SODIUM/DEXTROSE 25,000 UNITS/500 ML BAG IV SCH (09:45)
[2023-11-09] MEDS: NITROGLYCERIN 2% OINTMENT 30GM TUBE EXT SCH ×3 (10:17→20:05)
[2023-11-09 10:20] LABS: C Reactive Protein 0.78 mg/dl (0-0.5)
[2023-11-09] MEDS: Heparin IV Adult Wt-Based Low-Dose *NO* INITIAL Bolus Protocol IV SCH ×3 (10:21→10:43)
[2023-11-09 10:47] LABS: Chol HDL Ratio 8.3 (0-5); Cholesterol 314 mg/dl (0-200); HDL Cholesterol 38 mg/dl; Triglycerides 1282 mg/dl (0-150)
--- NOTE | 2023-11-09 10:59 | Cardiology Consultation ---
Date of Consultation November 09, 2023 Assessment & Plan (1) Septal myocardial infarction: The patient presents with symptoms consistent with angina. EKG performed on presentation at 5:25 AM revealed sinus rhythm at 90 bpm, with new finding of septal infarct pattern with Q waves noted in lead V2 which was new, with noted subtle ST segment elevation limited to only lead V2 which was new compared to previous tracing performed in January, and historical tracings dating back to 2019 per my personal review. Repeat tracing performed 11/09/2023 at 10:19 AM revealed similar findings as the initial tracing. Blood pressure remains above goal with most recent measurement of 173/111. Patient has undergone a bedside echocardiogram which was reviewed independently by the undersigned with findings of a distal septal, apical, and apical anterior wall motion abnormality all consistent with ischemia/injury in the left anterior descending coronary artery territory. The LVEF is normal, 55%. Patient is already on unfractioned heparin and topical nitroglycerin is in place. He received aspirin as administered by the EMS. He describes however he was unable to chew them as he does not have teeth and swallowed these aspirin. At this time, recommend emergent cardiac catheterization, and the cardiac c atheterization laboratory was activated via the "heart alert "protocol. Case discussed by phone with Dr. Elliott of interventional cardiology. Although patient has a history of stroke after a previous cardiac catheterization procedure 7 years ago, at present, my impression is that the benefits of proceeding with the procedure outweigh the risks. Proceed with metoprolol 5 mg IV x 1, oral metoprolol and atorvastatin 80 mg. Case discussed with Dr Sanders of the hospitalist service for the purpose of coordination of care. History of Present Illness Attending Physician: Libra Sanders MD History of Present Illness Mr Ryan is a 48-year-old male Seen in cardiology consultation per the request of Dr. Sanders for evaluation of chest discomfort with concerns for an acute coronary syndrome. The patient describes feeling well yesterday without any symptoms. At 4 AM he woke up with an urge to use the bathroom and felt severe midline chest discomfort that radiated to both shoulders and down his left arm. Symptoms persisted prompting him to come to the emergency department. He received aspirin and has been administered by EMS as well as subsequent nitroglycerin with improvement in his symptoms. At the time my assessment in the emergency department just before 11 AM he notes ongoing 6/10 chest discomfort that had improved, at worst, and is now a little bit better after initiation of topical nitroglycerin by the admitting team. Past Medical History The patient's most recent outpatient cardiology follow-up visit had been in 2019 and was a preoperative evaluation. The progress note describes the patient having had a history of cardiac catheterization performed in 2017 at [facility] with findings of luminal irregularities The records of that admission are not available for review at that time, but pt and his girlfriend, Veena, describe him having a stroke after the procedure and he has a residual left hemiparesis His history is otherwise notable for uncontrolled DM2, Hypertension , dyslipidemia, and bipolar disorder. He state he does not take aspirin regularly and also missed other medications due to cost concerns Allergies Allergy/AdvReac Type Severity Reaction Status Date / Time hydrocodone Allergy Intermediate hives, Verified 08/15/22 21:08 itching,VOMITING oak Allergy Intermediate ITCHY Verified 08/15/22 21:08 tramadol AdvReac Intermediate VOMITING Verified 08/15/22 21:08 Home Medications Medication Instructions Recorded Confirmed Type albuterol sulfate 90 mcg/actuation 2 puff inhalation DIRECTED PRN 08/15/22 08/15/22 History aerosol inhaler Shortness Of Breath Or Wheezing aspirin 81 mg tablet,delayed 81 mg PO DAILY 08/15/22 08/15/22 History release atorvastatin 80 mg tablet 40 mg PO HS 08/15/22 08/15/22 History fluticasone propionate 50 2 spray intranasal BID 08/15/22 08/15/22 History mcg/actuation nasal spray,suspension galcanezumab-gnlm 120 mg/mL 120 mg subcut MONTHLY 08/15/22 08/15/22 History subcutaneous pen injector (Emgality Pen) metformin 500 mg tablet 500 mg PO BID 08/15/22 08/15/22 History metoprolol succinate 100 mg 100 mg PO BID 08/15/22 08/15/22 History tablet,extended release 24 hr montelukast 10 mg tablet 10 mg PO DAILY 08/15/22 08/15/22 History (Singulair) oxycodone-acetaminophen 10 mg-325 1 tab PO Q6H PRN Pain 08/15/22 08/15/22 History mg tablet pantoprazole 40 mg tablet,delayed 40 mg PO DAILY 08/15/22 08/15/22 History release prednisone 10 mg tablet 20 mg PO DIRECTED PRN Migraine 08/15/22 08/15/22 History Headache topiramate 100 mg tablet 100 mg PO BID 08/15/22 08/15/22 History trazodone 150 mg tablet 150 mg PO HS 08/15/22 08/15/22 History oxycodone-acetaminophen 10 mg-325 1 tab PO Q6H PRN pain #6 tabs 10/22/22 Rx mg tablet (Percocet) metoprolol succinate 100 mg 100 mg PO BID #60 ea 01/10/23 Rx capsule sprinkle, ext. release 24 hr Patient History Medical History Lumbar back pain with radiculopathy affecting left lower extremity Acute pain of left hip No known health problems Opioid dependence Pneumonia YOLA (acute kidney injury) History of coronary artery disease DM type 2 (diabetes mellitus, type 2) Opiate abuse, continuous Intellectual disability Suicidal ideation Ischemic stroke "with residual left hemiparesis" Dyslipidemia Anxiety Bipolar disorder JOSE (obstructive sleep apnea) Asthma Obesity GERD (gastroesophageal reflux disease) HTN (hypertension) Surgical History S/P TKR (total knee replacement) S/P left knee arthroscopy Hx of reconstruction of anterior cruciate ligament tear Family History Other No significant family history Social History Smoking Status: Never smoker Tobacco Type: Smokeless Tobacco (Dip or Chew) Preferred Language: Irish Feels Safe at Home: Yes Review of Systems Review of Systems: All systems reviewed & are unremarkable except as noted in HPI & below Physical Exam Constitutional: WD/WN, vitals as above Eyes: PERRL, conjunctivae normal, anicteric sclerae Respiratory: normal respiratory effort, lungs clear to auscultation Cardiovascular: RRR, no murmur, no edema Gastrointestinal (Abdomen): normal bowel sounds, soft, nontender, no hepatosplenomegaly Neurologic: awake left sided hemiparesis Results & Data Vital Signs (Past 12 Hours) Vital Signs Temp Pulse Resp BP Pulse Ox Pulse Ox O2 Del Method 11/09/23 09:02 98 H 11/09/23 08:39 98 11/09/23 05:51 98 Room Air 11/09/23 05:33 93 H 11/09/23 05:25 36.7 C 88 16 160/107 H 98 Room Air O2 Del Method 11/09/23 09:02 11/09/23 08:39 Room Air 11/09/23 05:51 11/09/23 05:33 11/09/23 05:25 Laboratory Results Cardiac Enzymes 11/09/23 11/09/23 Range/Units 05:37 07:35 AST 89 H (13-39) U/L Troponin I High Sens 27.5 H 304.7 H* D (0-20) pg/ml Coagulation 11/09/23 Range/Units 10:28 PT 10.4 (9.0-12.0) Seconds APTT 26 (21-31) Seconds Lipids 11/09/23 Range/Units 05:37 Triglycerides 1282 H (0-150) mg/dl Cholesterol 314 H (0-200) mg/dl HDL Cholesterol 38 mg/dl Cholesterol/HDL Ratio 8.3 H (0-5) CBC 11/09/23 Range/Units 05:37 WBC 5.03 (4.8-10.8) K/ul RBC 5.65 (4.70-6.10) M/uL Hgb 17.1 (14.0-18.0) g/dl Hct 50.2 (42.0-52.0) % Plt Count 180 (130-400) K/uL Neut # (Auto) 3.36 (1.40-6.50) K/uL Lymph # (Auto) 1.19 L (1.20-3.40) K/uL [place] # (Auto) 0.34 (0.11-0.59) K/uL Eos # (Auto) 0.07 (0.00-0.50) K/uL Baso # (Auto) 0.04 (0.00-0.20) K/uL Comprehensive Metabolic Panel 11/09/23 11/09/23 Range/Units 05:37 10:22 Sodium 126 L 134 L (136-145) mmol/L Potassium 5.2 H 4.0 D (3.5-5.1) mmol/L Chloride 90 L 98 (98-107) mmol/L Carbon Dioxide 24 27 (21-32) mmol/L BUN 18 16 (6-23) mg/dl Creatinine 1.33 0.87 D (0.6-1.4) mg/dl Glucose 716 H* 283 H (70-99(Fasting)) mg/dl Calcium 9.7 9.0 (8.6-10.3) mg/dl AST 89 H (13-39) U/L ALT 138 H (7-52) U/L Alkaline Phosphatase 216 H (34-104) U/L Total Protein 7.7 (6.0-8.3) gm/dl Albumin 4.5 (3.4-5.0) gm/dl Intake and Output 11/08/23 11/09/23 11/09/23 22:59 06:59 14:59 Intake Total 1020.750 / 1020.750 Balance 1020.750 / 1020.750 Intake: IV 1020.750 / 1020.750 Insulin Regular 250 units In 20.750 / 20.750 Sodium Chloride 0.9% 247.5 ml @ 5 UNITS/HR 5 mls/hr IV .Q24H [facility] Rx#:[id number] Plasma-Lyte A 1,000 ml @ 999 1000 / 1000 mls/hr IV .Q1H1M ONE Rx#: [id number] Other: Weight 122 kg Weight Measurement Method Built in [facility] Lactate level 2.7 HgbA1C 16.1 % Total cholesterol 214, triglycerides 1282, HDL 38, LDL cannot be calculated Procalcitonin level within normal limits
[2023-11-09 11:00] LABS: BUN Creatinine Ratio 18.4 (10-20); Creatinine Clr Calc Pharmacy 132.5 ml/min; Est GFR (African American) 117.5 ml/min; Est GFR (Non-African American) 101.3 ml/min; Phosphorus 3.4 mg/dl (2.5-4.9)
[2023-11-09] MEDS ORDERED: METOPROLOL TARTRATE 1 MG/ML VIAL IV STA (11:09)
[2023-11-09 11:14] LABS: INR 0.9 (0.9-1.1); Partial Thromboplastin Ratio 0.9; Partial Thromboplastin Time 26 Seconds (21-31); Prothrombin Time 10.4 Seconds (9.0-12.0)
[2023-11-09] MEDS ORDERED: fentaNYL citrate PF 100 MCG/2 ML VIAL ONE (11:16)
[2023-11-09] MEDS ORDERED: niCARdipine HCL INJ 2.5 MG/ML 10 ML AMP ONE (11:16)
[2023-11-09] MEDS ORDERED: NITROGLYCERIN/D5W 100MCG/ML 20ML SYR ONE (11:16)
[2023-11-09] MEDS ORDERED: HEPARIN (PORCINE) 1000 UNIT/ML 10 ML (CATH LAB USE ONLY) ONE (11:16)
[2023-11-09] MEDS ORDERED: MIDAZOLAM HCL 1 MG/ML 2ML VIAL ONE ×2 (11:16→12:08)
[2023-11-09] MEDS ORDERED: TICAGRELOR 90 MG TAB ONE ×2 (11:28→12:07)
[2023-11-09] MEDS ORDERED: INSULIN ASPART PER UNIT CHARGE SC SCH (12:00)
[2023-11-09] MEDS ORDERED: OPTIRAY 350 ONE (12:04)
--- NOTE | 2023-11-09 12:41 | Pre Anesthesia Assessment ---
Date of Service November 09, 2023 Pre Sedation Assessment Vital Signs Temp Pulse Resp BP Pulse Ox Pulse Ox O2 Del Method 11/09/23 11:26 109 H 173/111 H 11/09/23 11:09 Room Air 11/09/23 11:00 109 H 18 173/111 H 98 Room Air 11/09/23 10:30 105 H 13 96 Room Air 11/09/23 10:30 165/120 H 11/09/23 10:17 157/118 H 11/09/23 10:00 111 H 14 11/09/23 09:02 98 H 11/09/23 09:00 94 H 13 96 11/09/23 08:39 98 11/09/23 05:51 98 Room Air 11/09/23 05:33 93 H 11/09/23 05:25 98.1 F 88 16 160/107 H 98 Room Air O2 Del Method 11/09/23 11:26 11/09/23 11:09 11/09/23 11:00 11/09/23 10:30 11/09/23 10:30 11/09/23 10:17 11/09/23 10:00 11/09/23 09:02 11/09/23 09:00 11/09/23 08:39 Room Air 11/09/23 05:51 11/09/23 05:33 11/09/23 05:25 Cardiovascular + tachycardic Respiratory + respiratory effort normal Pre-Sedation Airway Assessment Smoking Status: Never smoker Hx Sleep Apnea: No Hx Difficult Intubation: No Short, Thick Neck: No Thyromental Distance: < 3.5 Finger Breadths Oral Cavity: + Dental Abnormalities ASA: ASA4 Procedure Planning Contraindications for Sedation: none Current Medications Reviewed: Yes Notes The planned sedation has been discussed with the patient. Informed Consent was obtained. I have identified the patient, determined the appropriateness of sedation and have assessed the patient immediately prior to the procedure. All medicine(s) and interventions are by my order.
--- NOTE | 2023-11-09 12:41 | Post Anesthesia Assessment ---
Date of Service November 09, 2023 Post Sedation Assessment Vital Signs Temp Pulse Resp BP Pulse Ox Pulse Ox O2 Del Method 11/09/23 11:26 109 H 173/111 H 11/09/23 11:09 Room Air 11/09/23 11:00 109 H 18 173/111 H 98 Room Air 11/09/23 10:30 105 H 13 96 Room Air 11/09/23 10:30 165/120 H 11/09/23 10:17 157/118 H 11/09/23 10:00 111 H 14 11/09/23 09:02 98 H 11/09/23 09:00 94 H 13 96 11/09/23 08:39 98 11/09/23 05:51 98 Room Air 11/09/23 05:33 93 H 11/09/23 05:25 98.1 F 88 16 160/107 H 98 Room Air O2 Del Method 11/09/23 11:26 11/09/23 11:09 11/09/23 11:00 11/09/23 10:30 11/09/23 10:30 11/09/23 10:17 11/09/23 10:00 11/09/23 09:02 11/09/23 09:00 11/09/23 08:39 Room Air 11/09/23 05:51 11/09/23 05:33 11/09/23 05:25 Recovery Score Activity: Moves 4 extremities Respiration: Deep Breath/Cough Circulation: +/-20% PreAnes Value Consciousness: Fully Awake Oxygen Saturation: O2 needed for >90% Discharge Sedation Level of Care: Fast Track Phase II Post Sedation Plan On clinical assessment, the patient appears to have tolerated the sedation without complications. Patient is recovering as anticipated. Patient will continue to be monitored by nursing and may be discharged when sedation discharge criteria are met per below protocol. Upon Completions of procedure up to 15 minutes continue every 5 minute vital signs and the P.A.R. score; then discharge to a Phase I or Fast Track to Phase II per the following guidelines: * Discharge Patient to appropriate Phase II area if PAR is 8 or greater or return to pre- procedure baseline. The post - procedure orders will be as directed. * If PAR score is less than 8 or not return to pre-procedure baseline then patient will follow Phase I monitoring till PAR is reached for Phase II. The Phase I may be done in procedure room or may call to secure a Phase I area. * If naloxone or flumazenil are used for reversal, hold in Phase I for continued monitoring from when last reversal dose was given for a minimum of 60 minutes or longer pending the nurse and/or physician discretion of patient condition before discharge to Phase II. Please call the Sedation Physician to re-evaluate and complete post-note for discharge to Phase II area. Do NOT discharge from procedure sedation or Phase 1 until post- sedation evaluation note is complete by procedure /sedation MD Sedation Discharge Instructions to be given to the patient at discharge to home.
--- NOTE | 2023-11-09 12:45 | Cardiac Catheterization ---
[facility] Data: Educational Resource Coordinator Cardiac Status Clinical evaluation leading to the procedure CAD Presenation: Non STEMI Anginal Classification: CCS IV Diagnostic Physicians Name: Benito Elliott MD Closure Device Recommendations: PCI without planned CABG Cardiac Cath Procedure Full Procedure Date November 09, 2023 Pre-Procedure Diagnosis Pre-Procedure Diagnosis: Non STEMI AUC Score AUC Score: 8 Post-Procedure Diagnosis Post-Procedure Diagnosis: Severe CAD and Successful PCI Procedure(s) Performed Procedure(s) Performed: Coronary Angiography, Left Heart Cath and Drug Eluting Stent Skin Carver Benito Elliott MD Acid Concentrator(s) Pranay Estimated Blood Loss Estimated Blood Loss: 10 Medication(s) Medication(s): Fentanyl, Heparin, Lidocaine 1%, Nicardipine, Nitroglycerin and Versed Medication(s): Ticagrelor Summary of Findings Indication: High risk NSTEMI Access: 6 Fr right radial artery Catheters: Revere, EBU 3.5 guide Findings: LM -normal caliber, no significant disease LAD -medium caliber, 20 to 30% proximal to mid segment diffuse disease, 30% distal disease prior to vessel wrapping around apex. Medium D1 with acute 99% proximal stenosis with JYOTHI II distal flow Circumflex -medium caliber, 30% ostial, 40 to 50% mid to distal disease at takeoff of OM 2/OM 3 small OM 3 with 50% proximal disease. Small distal AV groove circumflex with mild diffuse disease RCA -dominant, medium caliber, diffuse mild segment disease up to 30%, distal luminal irregularities. Medium RPDA with 30 to 40% mid stenosis. PAV with luminal irregularities. LVEDP -8 -- PCI -- Antithrombotic therapy: Heparin, ticagrelor Procedure: Left cannulated with EBU 3.5 guide Pre-procedure flow JYOTHI 2 Supervisor Safety Deposit 50 wire passed across lesion into distal vessel Proximal D1 lesion predilated with 2.0 compliant balloon Prowater wire placed into LAD Dilated lesion stented with 2.25 x 23 mm Xience drug-eluting stent Stent post-dilated with 2.5 noncompliant balloon IC vasodilators administered for spasm Post procedure JYOTHI 3 flow, stent well expanded with minimal residual stenosis and no apparent cardiac complications. Arterial Closure: TR band Summary: 1. Acute 99% proximal first diagonal stenosis 2. Mild to moderate nonculprit coronary artery disease 25% proximal, 30% distal LAD 30% ostial, 45% mid-distal circumflex. Small OM3 50% proximal 30% diffuse mid RCA 3. Normal intracardiac filling pressure 4. Successful PCI of proximal first diagonal with single drug-eluting stent (2.25 x 23 mm Xience; postdilated with 2.5 NC). Recommendations: To PCU for continued monitoring Loaded with ticagrelor 180 mg in ED Continue dual-antiplatelet therapy for at least 1 year. Likely transition to clopidogrel on discharge Continue statin, and ASCVD risk factor modification Consult cardiac Rehab Hemodynamics Rest Ao:: 118/86/86 Final Ao: 114/78/90 LV: 114/8 Recommendations Recommendations: PCI without planned CABG Specimens Specimens: None Radiation Exposure (mGy) 2580 Contrast (mls) 95 Anesthesia Moderate 2563-0507 Procedural Complication(s) None Disposition PCU I attest to the content of the Intraoperative Record and any orders documented therein. Any exceptions are noted below. [facility] Card Cath Procedure Codes Cardiac Catheterization Procedure 1: Cardiovascular Cath Procedures: 77078 Coronaries and LHC (+/-LV) Moderate Sedation Procedure 1: Sedation/Anesthesia: 56724 Mod Sedation by the same physician;Init15 Min Child Age 5 & Up Procedure 2: Sedation/Anesthesia: 52018 Mod Sedation by the same physician; Ea [id number] Minutes Stenting Procedure 1: Cardiovascular Stent Procedures: 35423 Perc transluminal revascularization of acute sub/total occl, aMI PG Care Time/CCT Total # of Minutes Spent Total Time Spent with Patient: Total time spent is greater than 50% in coordination of care (as documented) at patient's floor/unit and/or counseling patient:
[2023-11-09 12:55] LABS: Appearance Urine Clear (Clear); Bilirubin Urine Negative (Negative); Blood Urine Negative (Negative); Color Urine Yellow; Glucose Urine UA 3+ (Negative); Ketones Urine Negative (Negative); Leukocyte Esterase Urine Negative (Negative); Nitrite Urine Negative (Negative); Protein Urine Negative (Negative); Specific Gravity Urine 1.032 (1.000-1.030); Urobilinogen Urine Negative (Negative)
[2023-11-09] MEDS ORDERED: Nursing to Pharmacy Communication SCH (14:30)
[2023-11-09] MEDS: INSULIN ASPART PER UNIT CHARGE SC SCH ×3 (14:37→22:03)
--- NOTE | 2023-11-09 14:40 | Communication Note ---
Date of Service: November 09, 2023 Patient reassessed postcardiac catheterization with PCI of high-grade diagonal stenosis. Patient feeling well without angina or strokelike symptoms. Extended family at bedside visiting as well as his girlfriend, Veena. Patient counseled with regards to the needs to maintain antiplatelet therapy and heart healthy diet.
[2023-11-09] MEDS: SODIUM CHLORIDE 0.9% 1,000 ML IV SCH (15:22)
[2023-11-09 15:58] LABS: BUN Creatinine Ratio 16.5 (10-20); Calcium 8.7 mg/dl (8.6-10.3); Creatinine Clr Calc Pharmacy 135.6 ml/min; Est GFR (African American) 118.6 ml/min; Est GFR (Non-African American) 102.3 ml/min; Magnesium 1.8 mg/dl (1.7-2.4); Phosphorus 3.7 mg/dl (2.5-4.9); Potassium 3.8 mmol/L (3.5-5.1)
[2023-11-09] MEDS ORDERED: LANTUS PER UNIT CHARGE SC SCH (16:00)
[2023-11-09] MEDS: ACETAMINOPHEN 325 MG TAB PO PRN ×2 (16:40→21:30)
[2023-11-09] MEDS ORDERED: METOPROLOL SUCC 50MG EXT REL TAB PO STA (16:58)
[2023-11-09] MEDS: oxyCODONE/ACETAMINOPHEN 10-325 TAB PO PRN ×2 (17:23→23:06)
[2023-11-09] MEDS: FLUTICASONE/VILANTEROL 200/25MCG 14 PUFFS/INHALER INH SCH (18:27)
[2023-11-09] MEDS: PANTOprazole 40 MG TAB PO SCH (19:59)
[2023-11-09] MEDS: traZODone HCL 50 MG TAB PO SCH (20:01)
[2023-11-09] MEDS: FLUTICASONE PROPIONATE NA SPR 16 GM BTL NAE SCH (21:30)
[2023-11-09] MEDS: METOPROLOL SUCC 50MG EXT REL TAB PO SCH (22:20)
[2023-11-10] MEDS: SODIUM CHLORIDE 0.9% 1,000 ML IV SCH ×2 (00:57→13:05)
[2023-11-10] MEDS: NITROGLYCERIN 2% OINTMENT 30GM TUBE EXT SCH ×3 (04:12→10:15)
[2023-11-10 06:02] LABS: Hematocrit (blood only) 42.8 % (42.0-52.0); Hemoglobin 14.3 g/dl (14.0-18.0); Mean Corpuscular Hemoglobin 29.9 pg (25.0-34.0); Mean Corpuscular Hgb Conc 33.4 g/dL (32.0-36.0); Mean Corpuscular Volume 89.4 fL (80.0-100.0); Mean Platelet Volume 10.6 fL (9.4-12.4); Platelet Count 183 K/uL (130-400); RDW Coefficient of Variation 13.1 % (11.5-14.5); RDW Standard Deviation 42.7 fL (36.4-46.3); Red Blood Count 4.79 M/uL (4.70-6.10); White Blood Count 6.99 K/ul (4.8-10.8)
[2023-11-10 06:21] LABS: Albumin Globulin Ratio 1.5 (0.9-2); Albumin Level 3.2 gm/dl (3.4-5.0); BUN Creatinine Ratio 23.8 (10-20); Bilirubin,Total 0.5 mg/dl (0.2-1.0); Calcium 7.8 mg/dl (8.6-10.3); Creatinine Clr Calc Pharmacy 139.6 ml/min; Est GFR (African American) 121.6 ml/min; Est GFR (Non-African American) 104.9 ml/min; Globulin 2.2 gm/dl (2.5-4.0); Magnesium 1.6 mg/dl (1.7-2.4); Phosphorus 3.4 mg/dl (2.5-4.9); Potassium 3.7 mmol/L (3.5-5.1); Total Protein 5.4 gm/dl (6.0-8.3)
[2023-11-10] MEDS: oxyCODONE/ACETAMINOPHEN 10-325 TAB PO PRN ×3 (07:16→19:53)
[2023-11-10] MEDS ORDERED: CLOPIDOGREL BISULFATE 300 MG TAB PO ONE (08:00)
[2023-11-10] MEDS: INSULIN ASPART PER UNIT CHARGE SC SCH ×4 (09:05→22:40)
[2023-11-10] MEDS: METOPROLOL SUCC 50MG EXT REL TAB PO SCH ×2 (09:05→19:56)
[2023-11-10] MEDS: LANTUS PER UNIT CHARGE SC SCH ×2 (09:06→21:00)
[2023-11-10] MEDS: FLUTICASONE PROPIONATE NA SPR 16 GM BTL NAE SCH ×2 (09:06→19:54)
[2023-11-10] MEDS: FLUTICASONE/VILANTEROL 200/25MCG 14 PUFFS/INHALER INH SCH (09:06)
[2023-11-10] MEDS: ASPIRIN 81 MG ECTAB PO SCH (09:13)
[2023-11-10] MEDS: ATORVASTATIN 40 MG TAB PO SCH (09:13)
[2023-11-10] MEDS: ENOXAPARIN INJ 40 MG/0.4 ML SYR SQ SCH (09:14)
--- NOTE | 2023-11-10 10:09 | Pharmacy Report ---
Pharmacy Glycemic Short Note 2 - Date of Service November 10, 2023 - Glycemic Short BSG Results (Last 24 hours): 11/09/23 11/09/23 11/09/23 09:45 10:22 10:23 Glucose 283 H POC Glucose 294 H 284 H 11/09/23 11/09/23 11/09/23 11:17 12:23 13:37 Glucose POC Glucose 241 H 266 H 216 H 11/09/23 11/09/23 11/09/23 14:24 15:26 15:27 Glucose 260 H POC Glucose 249 H 244 H 11/09/23 11/09/23 11/09/23 16:29 17:35 18:27 Glucose POC Glucose 224 H 223 H 202 H 11/09/23 11/09/23 11/09/23 19:25 20:28 21:35 Glucose POC Glucose 178 H 234 H 343 H* 11/09/23 11/09/23 11/10/23 22:37 23:39 00:31 Glucose POC Glucose 329 H* 356 H* 360 H* 11/10/23 11/10/23 11/10/23 01:31 02:31 03:32 Glucose POC Glucose 283 H 271 H 205 H 11/10/23 11/10/23 11/10/23 04:43 05:22 05:44 Glucose 257 H POC Glucose 216 H 284 H 11/10/23 11/10/23 11/10/23 06:34 07:33 08:32 Glucose POC Glucose 258 H 270 H 242 H 11/10/23 11/10/23 09:26 09:28 Glucose POC Glucose 393 H* 304 H* OUTPATIENT ANTIDIABETIC REGIMEN: * Metformin 500 mg PO BID * Ozempic 0.5 mg SC weekly on Mondays HbA1c = 16.1% ASSESSMENT: * 48 y/o M admitted for chest pain, history of severe CAD and Type 2 diabetes, underwent PCI yesterday. * Blood sugars above 700 mg/dl on admission yesterday. Insulin drip was started for him. However due to uncontrolled diet (family bringing him food and nursing not being told prior to eating) blood sugars remain elevated in spite of basal SQ insulin being started yesterday evening. * Novolog correction started in addition to carb coverage this morning. * Additional basal dose 30 units BID ordered based on wt and stress of 3, first dose given this morning. * Spoke with hospitalist, plan to discharge patient later today. Patient refuses to take any insulin at home, will only take oral anti-diabetic meds. * After Novolog correction and basal dose this morning, expect BSGs to trend down. PLAN FOR INPATIENT GLYCEMIC CONTROL: * Hold outpatient oral diabetes medications * Basal insulin * Lantus 30 units SQ BID * Bolus insulin * NovoLog per scale ACHS or Q6hrs while NPO * Goal Range: Low 110 mg/dL - High 140 mg/dL * Correction Factor: 15 mg/dL/unit * Nutritional / Prandial insulin per carb ratio of 1 unit per 6 grams CHO consumed
[2023-11-10] MEDS: LOSARTAN POTASSIUM 25 MG TAB PO SCH (11:27)
--- NOTE | 2023-11-10 11:32 | Cardiology Progress Note ---
Date of Service November 10, 2023 Assessment & Plan (1) Septal myocardial infarction: (2) Abnormal LFTs: (3) Uncontrolled diabetes mellitus with hyperglycemia: Plan 48 year old male (1) Septal myocardial infarction: NSTEMI. Patient found to have a culprit 99% stenosis of a moderately sized diagonal 1 branch of the LAD for which he underwent PCI and drug-eluting stent. Nonobstructive disease noted elsewhere for which medical management recommended. Patient was again counseled on the importance of maintaining aspirin 81 mg daily (lifelong therapy). Patient received first dose of clopidogrel today 75 mg daily, having been loaded with Brilinta prior to cardiac catheterization yesterday. Patient expressed his concerns of having had what he describes as superficial bruising when on clopidogrel at the time of his stroke event in 2017. I discussed with him once again the importance of dual antiplatelet therapy and the recommendation for him to remain on such for 1 year post PCI. We discussed although there are alternatives to clopidogrel including prasugrel and Brilinta, I would anticipate that these agents would actually have a higher risk of bleeding and for that reason as well as for the reason of cost concerns, I would recommend another trial of clopidogrel as first-line therapy. Continue prior to hospital treatment with metoprolol. Atorvastatin has been increased to 80 mg daily. Patient states that he will only take 40 mg however at home. Losartan added for optimization of blood pressure especially given his history of diabetes and coronary heart disease. (2) Abnormal LFTs: Likely on the basis of his recent acute UT as well as fatty liver disease in the setting of hyperlipidemia with hypertriglyceridemia. Recommend ongoing intensive statin therapy. (3) Uncontrolled diabetes mellitus with hyperglycemia: Hemoglobin A1c 16.1%. Hospice team working on optimizing his regimen. Dietary changes had been discussed with patient yesterday. DISPOSITION: -Patient due for repeat EKG which will be reviewed. -If EKG findings stable , pt will be stable from cardiac standpoint for discharge. He utilizes the [facility] at [facility] which will not open until tomorrow. the importance of medication adherence discussed with pt. Admission and Anticipated Discharge Date Admission Date: November 09, 2023 Subjective Mr Ryan is a 48-year-old male seen in cardiology follow-up of non-ST segment elevation myocardial infarction for which he underwent emergent cardiac catheterization and stenting of a 99% stenosis of the diagonal 1 branch of the left anterior descending coronary artery on 11/09/2023. Overall he states he is feeling well. He denies chest discomfort or shortness of breath. Telemetry reveals sinus rhythm in the 80s without arrhythmia. His blood pressure has trended toward significant improvement with measurement this morning of 131/77. Patient drinking Pepsi Cola this morning with blood glucose level of 393 mg/dl this morning at 9:26 am,, but down to 182 mg/d at 10:57 am. Review of Systems Review of Systems: All systems reviewed & are unremarkable except as noted in HPI & below Physical Exam Constitutional: WD/WN, vitals as above Eyes: PERRL, conjunctivae normal, anicteric sclerae ENMT: external ear and nose normal, oropharynx normal Respiratory: normal respiratory effort, lungs clear to auscultation Cardiovascular: RRR, no murmur, no edema Vessels: no JVD Right radial catheterization site clean, dry and intact, Gastrointestinal (Abdomen): normal bowel sounds, soft, nontender, no hepatosplenomegaly Musculoskeletal: Left upper extremity hemiparesis, chronic finding unchanged Results & Data Vital Signs (Past 12 Hours) Vital Signs Temp Pulse Pulse Resp BP Pulse Ox O2 Del Method 11/10/23 07:42 36.9 C 77 20 131/77 95 Room Air 11/10/23 04:15 100/60 11/10/23 03:11 36.9 C 79 20 105/65 95 Room Air 11/10/23 02:13 116 H Laboratory Results Cardiac Enzymes 11/10/23 Range/Units 05:22 AST 83 H (13-39) U/L CBC 11/10/23 Range/Units 05:22 WBC 6.99 (4.8-10.8) K/ul RBC 4.79 (4.70-6.10) M/uL Hgb 14.3 (14.0-18.0) g/dl Hct 42.8 (42.0-52.0) % Plt Count 183 (130-400) K/uL Comprehensive Metabolic Panel 11/09/23 11/10/23 Range/Units 15:27 05:22 Sodium 135 L 138 (136-145) mmol/L Potassium 3.8 3.7 (3.5-5.1) mmol/L Chloride 100 106 (98-107) mmol/L Carbon Dioxide 24 25 (21-32) mmol/L BUN 14 19 (6-23) mg/dl Creatinine 0.85 0.80 (0.6-1.4) mg/dl Glucose 260 H 257 H (70-99(Fasting)) mg/dl Calcium 8.7 7.8 L (8.6-10.3) mg/dl AST 83 H (13-39) U/L ALT 90 H (7-52) U/L Alkaline Phosphatase 107 H (34-104) U/L Total Protein 5.4 L D (6.0-8.3) gm/dl Albumin 3.2 L (3.4-5.0) gm/dl Intake and Output 11/09/23 11/10/23 11/10/23 22:59 06:59 14:59 Intake Total 33.361 / 2871.631 1015.297 / 2871.631 34.702 / 34.702 Balance 33.361 / 2871.631 1015.297 / 2871.631 34.702 / 34.702 Intake: IV 33.361 / 2871.631 1015.297 / 2871.631 34.702 / 34.702 Insulin Regular 250 units In 33.361 / 129.298 56.964 / 129.298 34.702 / 34.702 Sodium Chloride 0.9% 247.5 ml @ 7.1 UNITS/HR 7.1 mls/hr IV . Q24H LIZETH Rx#:[id number] Sodium Chloride 0.9% 1,000 ml @ 958.333 / 958.333 100 mls/hr IV .Q10H LIZETH Rx#: [id number] Other: # Unmeasured Voids 1 1 Weight 114.9 kg Weight Measurement Method Built in [facility]
[2023-11-10] MEDS ORDERED: POTASSIUM CHLORIDE CRTAB 20 MEQ TABCR PO STA (11:46)
[2023-11-10] MEDS: INSULIN REGULAR 250 UNITS in SODIUM CHLORIDE 0.9% 247.5 ML IV SCH (12:50)
[2023-11-10] MEDS: MAGNESIUM OXIDE 400 MG TAB PO SCH ×2 (13:10→19:56)
--- NOTE | 2023-11-10 13:31 | Hospitalist Progress Note ---
Date of Service November 10, 2023 Assessment & Plan (1) Septal myocardial infarction: (2) Chest pain: (3) Hyperglycemia: (4) Uncontrolled diabetes mellitus with hyperglycemia: (5) Abnormal LFTs: (6) Idiopathic polyneuropathy: (7) Lumbosacral radiculopathy: Plan Mr. 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 Patient with multiple barriers regarding medication compliance, more concerning, compliance for DAPT. Over an hour was spent discussing the importance of diabetes control, lifestyle modifications, as well as compliance with DAPT at the very minimum to everything else. Patient states that he will trial the plavix, as the symptoms explained with Brilinta appear worse. He does deny an OP insulin regimen, but will agree to PO medications: -A prescription for Metformin 1000mg BID and Glipizide 10mg BID was sent given the amount of insulin required to cover while inpatient #NSTEMI #Obstructive CAD with PCI of proximal first diagonal with single drug-eluting stent. -Multiple risk factors: HLD, HTN, uncontrolled DM, active tobacco use (dip) -ED visit 2017 with "bruising" from plavix, will not take, adamantly declines -Continue ASA, plavix, and atorvastatin 80mg -Will determine Brilinta coverage and discuss BID dosing; however, risk of bruising is present, the risk of in-stent thrombosis is very real, in which patient's response is "if I , I " -12 refills of plavix and aspirin sent to pharmacy to ensure no lapse in DAPT or issues with refills if poor follow up becomes barrier. -will continue to encourage and reinforance DAPT compliance regardless of agent -Continue previous home metoprolol 100mg BID xl dosing (reports noncompliance) -Continue Losartan 25mg started by Cardiology #Uncontrolled DMTII -Reports being on metformin, but put the bottles away -States he take ozempic 0.5mg on Mondays; refuses insulin, but will consider pills if "necessary A1C 16%, glucose 700s, responsive to insulin, no DKA -Glycemic consult with diabetes education -Adamantly declines insulin as outpatient given inability to use glucometer and dexcom is not covered -Agreed upon oral regimen of Metformin and Glipizide 10mg BID after dicussion with pharmacy -Encouraged dietary modifications and compliance/follow up with PCP #HLD -Resuming statin at 80mg, will continue to reinforce and educate, patient is adament for prescription for 40mg and will not take home 80mg. -Continue to educate, additional medication will increase pill burden and hinder need to reinforce compliance with DAPT at this time #Transaminitis *improving #Hepatic steatosis on imaging -potential related to ACs event, as well as fatty liver noted on CT -no active symptoms -Trend CMP #Chronic pain on opioids #Lumbar radiculopathy -Continue home regimen #CVA c/b left hemiparesis -Left upper extremity with hand contracture, chronic 2017 -Discuss with case management Home health nurse for medication assistance (pill boxes?) -Continue ASA/Statin #Asthma Stable, reports only as needed albuterol, no daily inhalers albuterol prn Flonase per patient request #GERD Protonix #Bipolar Disorder multiple psych med history, none of which patient continues out side of trazodone -continue trazodone 150mg qhs PT/OT Carb diet/HH: patient receiving outside hospital food. FULL CODE Likely discharge tomorrow DVT scds, lovenox will encourage both given history of dvt Admission and Anticipated Discharge Date Admission Date: November 09, 2023 Subjective NAEO More agreeable to conversation regarding taking medications, at least giving plavix a trial Stating he will "try to remember." States that he will also try to take the oral medications upon discharge He denies any active chest pain, SOB, nausea/vomiting, or other acute concerns at this time Physical Exam Constitutional: WD/WN, vitals as above Respiratory: normal respiratory effort, lungs clear to auscultation Cardiovascular: RRR, no murmur, no edema Neurologic: left upper extremity with distal contracture, strength in hand 2-3/5 Results & Data Results & Data Vital Signs (Past 12 Hours) Vital Signs Temp Pulse Pulse Resp BP BP Pulse Ox 11/10/23 12:06 36.6 C 83 22 135/91 95 11/10/23 07:42 36.9 C 77 20 131/77 95 11/10/23 04:15 100/60 11/10/23 03:11 36.9 C 79 20 105/65 95 11/10/23 02:13 116 H O2 Del Method 11/10/23 12:06 Room Air 11/10/23 07:42 Room Air 11/10/23 04:15 11/10/23 03:11 Room Air 11/10/23 02:13 Laboratory Results Short CBC 11/10/23 Range/Units 05:22 WBC 6.99 (4.8-10.8) K/ul Hgb 14.3 (14.0-18.0) g/dl Hct 42.8 (42.0-52.0) % Plt Count 183 (130-400) K/uL BMP 11/09/23 11/10/23 15:27 05:22 Sodium 135 L 138 Potassium 3.8 3.7 Chloride 100 106 Carbon Dioxide 24 25 BUN 14 19 Creatinine 0.85 0.80 Glucose 260 H 257 H Calcium 8.7 7.8 L Liver Function 11/10/23 Range/Units 05:22 Total Bilirubin 0.5 (0.2-1.0) mg/dl AST 83 H (13-39) U/L ALT 90 H (7-52) U/L Alkaline Phosphatase 107 H (34-104) U/L Albumin 3.2 L (3.4-5.0) gm/dl Medications Administered Home Medications Medication Instructions Recorded Confirmed Last Taken albuterol sulfate 90 mcg/actuation 2 puff inhalation DIRECTED PRN 08/15/22 11/09/23 Unknown aerosol inhaler Shortness Of Breath Or Wheezing fluticasone propionate 50 2 spray intranasal BID 08/15/22 11/09/23 08/15/22 mcg/actuation nasal spray,suspension galcanezumab-gnlm 120 mg/mL 120 mg subcut MONTHLY 08/15/22 11/09/23 Unknown subcutaneous pen injector (Emgality Pen) montelukast 10 mg tablet 10 mg PO DAILY 08/15/22 11/09/23 08/15/22 (Singulair) pantoprazole 40 mg tablet,delayed 40 mg PO DAILY 08/15/22 11/09/23 08/15/22 release trazodone 150 mg tablet 150 mg PO HS 08/15/22 11/09/23 08/14/22 oxycodone-acetaminophen 10 mg-325 1 tab PO Q6H PRN pain #6 tabs 10/22/22 11/09/23 Unknown mg tablet (Percocet) budesonide-formoterol HFA 160 2 puff inhalation BID 11/09/23 11/09/23 Unknown mcg-4.5 mcg/actuation aerosol inhaler clotrimazole-betamethasone 1 1 applic topical BID 11/09/23 11/09/23 Unknown %-0.05 % topical cream semaglutide 0.25 mg or 0.5 mg (2 0.5 mg subcut WK 11/09/23 11/09/23 Unknown mg/3 mL) subcutaneous pen injector (Ozempic) aspirin 81 mg tablet,delayed 81 mg PO QAM #30 tabs 11/10/23 Unknown release atorvastatin 40 mg tablet 80 mg (2 x 40 mg) PO QAM #30 tabs 11/10/23 Unknown clopidogrel 75 mg tablet 75 mg PO QAM #30 tabs 11/10/23 Unknown glipizide 10 mg tablet 10 mg PO BID #60 tabs 11/10/23 Unknown losartan 25 mg tablet 25 mg PO QAM #30 tabs 11/10/23 Unknown metformin 500 mg tablet 1,000 mg (2 x 500 mg) PO BID #120 11/10/23 Unknown tabs metoprolol succinate 100 mg 100 mg PO BID #60 tabs 11/10/23 Unknown tablet,extended release 24 hr Active Medications Generic Name Dose Route Start Last Admin Trade Name Freq PRN Reason Stop Dose Admin Acetaminophen 650 mg 11/09/23 08:39 11/09/23 21:30 Acetaminophen 325 Mg Tab PO 12/09/23 08:38 650 mg Q4H PRN Administration Pain or Fever Aspirin 81 mg 11/10/23 09:00 11/10/23 09:13 Aspirin 81 Mg Ectab PO 12/10/23 08:59 81 mg QAM LIZETH Administration Atorvastatin Calcium 80 mg 11/10/23 09:00 11/10/23 09:13 Atorvastatin 40 Mg Tab PO 12/10/23 08:59 40 mg QAM LIZETH Administration Enoxaparin Sodium 40 mg 11/10/23 09:00 11/10/23 09:14 Enoxaparin Inj 40 Mg/0.4 Ml Syr SQ 12/10/23 08:59 Not Given QAM [facility] Fluticasone Propionate 2 sprays 11/09/23 21:00 11/10/23 09:06 Fluticasone Propionate Na Spr 16 Gm Btl CAROLEE 12/09/23 20:59 2 sprays BID LIZETH Administration Fluticasone/Vilanterol 1 puffs 11/09/23 17:00 11/10/23 09:06 Fluticasone/Vilanterol 200/25mcg 14 Puffs/Inhaler INH 12/09/23 16:59 1 puffs DAILY LIZETH Administration Insulin Aspart 0 units 11/09/23 14:30 11/10/23 13:09 Insulin Aspart Per Unit Charge SC 12/09/23 11:59 14 units ACHS LIZETH Administration Insulin Glargine 30 units 11/10/23 09:00 11/10/23 09:06 Lantus Per Unit Charge SC 12/10/23 08:59 30 units BID LIZETH Administration Losartan Potassium 25 mg 11/10/23 09:30 11/10/23 11:27 Losartan Potassium 25 Mg Tab PO 12/10/23 09:29 25 mg QAM LIZETH Administration Magnesium Oxide 400 mg 11/10/23 12:00 11/10/23 13:10 Magnesium Oxide 400 Mg Tab PO 11/10/23 21:01 400 mg BID LIZETH Administration Metoprolol Succinate 100 mg 11/09/23 21:00 11/10/23 09:05 Metoprolol Succ 50mg Ext Rel Tab PO 12/09/23 20:59 100 mg BID LIZETH Administration Oxycodone/Acetaminophen 1 tab 11/09/23 09:23 11/10/23 13:14 Oxycodone/Acetaminophen 10-325 Tab PO 11/23/23 09:22 1 tab Q6H PRN Administration Pain Pantoprazole Sodium 40 mg 11/10/23 09:00 11/09/23 19:59 Pantoprazole 40 Mg Tab PO 12/10/23 08:59 40 mg DAILY LIZETH Administration Trazodone HCl 150 mg 11/09/23 21:00 11/09/23 20:01 Trazodone Hcl 50 Mg Tab PO 12/09/23 20:59 150 mg HS LIZETH Administration
--- NOTE | 2023-11-10 21:17 | Electrocardiogram Report ---
Test Reason : Blood Pressure : / mmHG Vent. Rate : 090 BPM Atrial Rate : 090 BPM P-R Int : 166 ms QRS Dur : 086 ms QT Int : 360 ms P-R-T Axes : 057 030 058 degrees QTc Int : 440 ms Normal sinus rhythm Possible Left atrial enlargement Septal infarct , age undetermined Abnormal ECG When compared with ECG of 10-JAN-2023 04:25, Septal infarct is now Present Confirmed by Braxton Stevens ([id number]) on 11/10/2023 9:16:37 PM Referred By: REFERRED SELF Confirmed By:Braxton Stevens
--- NOTE | 2023-11-10 21:17 | Electrocardiogram Report ---
Test Reason : Blood Pressure : / mmHG Vent. Rate : 103 BPM Atrial Rate : 103 BPM P-R Int : 162 ms QRS Dur : 080 ms QT Int : 334 ms P-R-T Axes : 056 044 069 degrees QTc Int : 437 ms Sinus tachycardia Possible Septal infarct (cited on or before 09-NOV-2023) Abnormal ECG When compared with ECG of 09-NOV-2023 05:25, No significant change was found Confirmed by Braxton Stevens ([id number]) on 11/10/2023 9:16:56 PM Referred By: REFERRED SELF Confirmed By:Braxton Stevens
--- NOTE | 2023-11-10 21:18 | Electrocardiogram Report ---
Test Reason : Blood Pressure : / mmHG Vent. Rate : 095 BPM Atrial Rate : 095 BPM P-R Int : 162 ms QRS Dur : 088 ms QT Int : 356 ms P-R-T Axes : 049 050 077 degrees QTc Int : 447 ms Normal sinus rhythm Possible Septal infarct (cited on or before 09-NOV-2023) Abnormal ECG When compared with ECG of 09-NOV-2023 10:19, No significant change was found Confirmed by Braxton Stevens ([id number]) on 11/10/2023 9:17:43 PM Referred By: REFERRED SELF Confirmed By:Braxton Stevens
--- NOTE | 2023-11-10 21:19 | Electrocardiogram Report ---
Test Reason : Blood Pressure : / mmHG Vent. Rate : 078 BPM Atrial Rate : 078 BPM P-R Int : 166 ms QRS Dur : 084 ms QT Int : 384 ms P-R-T Axes : 063 065 088 degrees QTc Int : 437 ms Normal sinus rhythm Cannot rule out Septal infarct (cited on or before 09-NOV-2023) T wave abnormality, consider lateral ischemia Abnormal ECG When compared with ECG of 09-NOV-2023 13:23, T wave inversion more evident in Lateral leads Confirmed by Braxton Stevens ([id number]) on 11/10/2023 9:18:53 PM Referred By: REFERRED SELF Confirmed By:Braxton Stevens
[2023-11-10] MEDS: traZODone HCL 50 MG TAB PO SCH (22:25)
[2023-11-11] MEDS: oxyCODONE/ACETAMINOPHEN 10-325 TAB PO PRN ×2 (02:32→08:39)
[2023-11-11] MEDS: FLUTICASONE/VILANTEROL 200/25MCG 14 PUFFS/INHALER INH SCH ×2 (08:39→08:40)
[2023-11-11] MEDS: ENOXAPARIN INJ 40 MG/0.4 ML SYR SQ SCH (08:41)
[2023-11-11] MEDS: LOSARTAN POTASSIUM 25 MG TAB PO SCH (08:41)
[2023-11-11] MEDS: FLUTICASONE PROPIONATE NA SPR 16 GM BTL NAE SCH (08:41)
[2023-11-11] MEDS: ATORVASTATIN 40 MG TAB PO SCH (08:42)
[2023-11-11] MEDS: ASPIRIN 81 MG ECTAB PO SCH (08:44)
[2023-11-11] MEDS: PANTOprazole 40 MG TAB PO SCH (08:45)
[2023-11-11] MEDS ORDERED: CLOPIDOGREL BISULFATE 75 MG TAB PO SCH (09:00)
[2023-11-11] MEDS: INSULIN ASPART PER UNIT CHARGE SC SCH (09:21)
[2023-11-11] MEDS: LANTUS PER UNIT CHARGE SC SCH (09:21)
[2023-11-11] MEDS: METOPROLOL SUCC 50MG EXT REL TAB PO SCH (09:25)
--- NOTE | 2023-11-11 09:38 | Discharge Summary ---
Discharge Summary Date of Service November 11, 2023 Notes For Next Care Provider Patient verbalized understanding about the importance of DAPT, the combination of ASA and Plavix. Patient refused inhome/home health services. Patient refused dietary compliance and modifications at home. Patient refused insulin and reported he would not excelsior picker from pharmacy given issues with glucometer, however, will attempt oral regimen Medication Changes From Visit -Aspirin 81 mg daily 12 refills provided -Plavix 75 mg daily 12 refills provided to ensure no lapse given history of noncompliance (DAPT through 11/09/2024 recommended given high risk in-stent thrombosis) -Losartan 25mg daily for blood pressure prescribed and recommended -Atorvastatin 80mg daily prescribed and recommended -Increased Metformin to 1000mg BID -Added Glipizide 10mg BID Admission HPI Per Admitting Provider Mr. 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 Patient described it as a crushing substernal pressure with left sided radiation. The pain was relieved with nitropaste and aspirin as well as IV fentanyl. In the ED, vitals were notable for BP of 150-170s, HRs in 90-100s, and O2 sat of high 90s on room air Labs notable for elevated LFTs, and trop which went from 27.5 to 304.7 as well as glucose in 700s Imaging revealed fatty litter EKG on admission with concerns of possible infarction ED interventions: insulin drip Patient was evaluated by bedside initially and story was concerning. Echo ordered. After exam, Cardiology was consulted given concern of ACS. 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 Calderon reviewed ECHO and was concerned for looming infarction. Patient was found to have obstructive CAD with PCI of proximal first diagonal with single drug-eluting stent. Further history was obtained from patient. Patient states he has not taken any of his medications in months, outside of ozempic and omeprazole. He states he simply has too many medications and the bottles are too hard to open with his hemiparesis, so he "put the bottles aside." He states he will not take any psych meds and will take his trazodone and inhalers. He reports atorvastatin has to be 40mg, as 80 mg "causes medical problems and his father from it." Further discussion involved general compliance with at the minimum aspirin and plavix. Patient states he "will not take plavix ever" as it cause bruising and he will not leave his house with bruises. Patient states he will not take insulin at home. Patient states he will consider pills possibly. He notes that he cannot use a glucometer because of his disability. Patient to be admitted to PCU/tele for further evaluation and management of NSTEMI s/p stent placement. Admission Exam Per Admitting Provider ENERAL APPEARANCE: AxOx4, slightly disheveled and uncomfortable appearing male, chewing tobacco in mouth HEENT: NC, AT. MMM. EOMI, clear conjunctiva, oropharynx clear. NECK: Supple without lymphadenopathy. No stiffness or restricted ROM. HEART:tachycardic, no rub/gallop LUNGS: CTAB, moving air well. No crackles or wheezes are heard. ABDOMEN: Soft, nontender, nondistended with good bowel sounds heard. BACK: No CVAT, no obvious deformity. EXTREMITIES: Without cyanosis, clubbing or edema. NEUROLOGICAL: Grossly nonfocal. Alert and oriented, moving all 4 extremities, left extremity with 3/5 weakness and contracture of hand Skin: Warm and dry without any rash. Principal Dx & Hospital Course #1 = Principal Diagnosis (1) Septal myocardial infarction: (2) Chest pain: (3) Hyperglycemia: (4) Uncontrolled diabetes mellitus with hyperglycemia: (5) Abnormal LFTs: (6) Idiopathic polyneuropathy: (7) Lumbosacral radiculopathy: Plan Mr. 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 Patient with multiple barriers regarding medication compliance, more concerning, compliance for DAPT. Over an hour was spent discussing the importance of diabetes control, lifestyle modifications, as well as compliance with DAPT at the very minimum to everything else. Patient states that he will trial the plavix, as the symptoms explained with Brilinta appear worse. He does refuse even considering an OP insulin regimen, but will agree to attempting PO medications: -A prescription for Metformin 1000mg BID and Glipizide 10mg BID was sent given the amount of insulin required to cover while inpatient #NSTEMI #Obstructive CAD with PCI of proximal first diagonal with single drug-eluting stent. -Multiple risk factors: HLD, HTN, uncontrolled DM, active tobacco use (dip) -ED visit 2017 with "bruising" from plavix, will not take, adamantly declines -Continue ASA, plavix, and atorvastatin 80mg -Will determine Brilinta coverage and discuss BID dosing; however, risk of bruising is present, the risk of in-stent thrombosis is very real, in which patient's response is "if I , I " -12 refills of plavix and aspirin sent to pharmacy to ensure no lapse in DAPT or issues with refills if poor follow up becomes barrier. Patient states he would rather try plavix than two times dosing. -will continue to encourage and reinforce DAPT compliance regardless of agent, emphasized on discharge. -Continue previous home metoprolol 100mg BID xl dosing (reports noncompliance) -Continue Losartan 25mg started by Cardiology #Uncontrolled DMTII -Reports being on metformin, but put the bottles away -States he take ozempic 0.5mg on Mondays; refuses insulin, but will consider pills if "necessary A1C 16%, glucose 700s, responsive to insulin, no DKA -Glycemic consult with diabetes education -Adamantly declines insulin as outpatient given inability to use glucometer and dexcom is not covered -Agreed upon oral regimen of Metformin and Glipizide 10mg BID after discussion with pharmacy -Encouraged dietary modifications and compliance/follow up with PCP #HLD -Resuming statin at 80mg, will continue to reinforce and educate, patient is adament for prescription for 40mg and will not take home 80mg. -Continue to educate, additional medication will increase pill burden and hinder need to reinforce compliance with DAPT at this time #Transaminitis *improving #Hepatic steatosis on imaging -potential related to ACs event, as well as fatty liver noted on CT -no active symptoms #Chronic pain on opioids #Lumbar radiculopathy -Continue home regimen #CVA c/b left hemiparesis -Left upper extremity with hand contracture, chronic 2017 -Discuss with case management Home health nurse for medication assistance (pill boxes?) -Continue ASA/Statin #Asthma Stable, reports only as needed albuterol, no daily inhalers albuterol prn Flonase per patient request #GERD Protonix #Bipolar Disorder multiple psych med history, none of which patient continues out side of trazodone -continue trazodone 150mg qhs On day of discharge, patient refused any acute concerns, chest pain, SOB, or new symptoms. Patient verbalized understanding of risks associated with medication noncompliance, especially geared towards DAPT Discharge Exam Constitutional WD/WN, vitals as above Respiratory normal respiratory effort, lungs clear to auscultation Cardiovascular RRR, no murmur, no edema Updated Medication List Medication Instructions Recorded Confirmed Type albuterol sulfate 90 mcg/actuation 2 puff inhalation DIRECTED PRN 08/15/22 11/09/23 History aerosol inhaler Shortness Of Breath Or Wheezing fluticasone propionate 50 2 spray intranasal BID 08/15/22 11/09/23 History mcg/actuation nasal spray,suspension galcanezumab-gnlm 120 mg/mL 120 mg subcut MONTHLY 08/15/22 11/09/23 History subcutaneous pen injector (Emgality Pen) montelukast 10 mg tablet 10 mg PO DAILY 08/15/22 11/09/23 History (Singulair) pantoprazole 40 mg tablet,delayed 40 mg PO DAILY 08/15/22 11/09/23 History release trazodone 150 mg tablet 150 mg PO HS 08/15/22 11/09/23 History oxycodone-acetaminophen 10 mg-325 1 tab PO Q6H PRN pain #6 tabs 10/22/22 11/09/23 Rx mg tablet (Percocet) budesonide-formoterol HFA 160 2 puff inhalation BID 11/09/23 11/09/23 History mcg-4.5 mcg/actuation aerosol inhaler clotrimazole-betamethasone 1 1 applic topical BID 11/09/23 11/09/23 History %-0.05 % topical cream semaglutide 0.25 mg or 0.5 mg (2 0.5 mg subcut WK 11/09/23 11/09/23 History mg/3 mL) subcutaneous pen injector (Ozempic) aspirin 81 mg tablet,delayed 81 mg PO QAM #30 tabs 11/10/23 Rx release atorvastatin 40 mg tablet 80 mg (2 x 40 mg) PO QAM #30 tabs 11/10/23 Rx clopidogrel 75 mg tablet 75 mg PO QAM #30 tabs 11/10/23 Rx glipizide 10 mg tablet 10 mg PO BID #60 tabs 11/10/23 Rx losartan 25 mg tablet 25 mg PO QAM #30 tabs 11/10/23 Rx metformin 500 mg tablet 1,000 mg (2 x 500 mg) PO BID #120 11/10/23 Rx tabs metoprolol succinate 100 mg 100 mg PO BID #60 tabs 11/10/23 Rx tablet,extended release 24 hr Hospital Stay Data Consultations 11/09/23 07:56 ED Decision to Admit Stat 11/09/23 09:14 Consult Cardiology Routine Procedures Performed Operation Date: 11/09/23 11:30 Actual Procedures s Cineradiography w/Routine Exam - Benito Elliott MD p Cath, Left with Cors and Vent - Benito Elliott MD s Drug Eluting Stent SGl Vessel - Benito Elliott MD Diagnostic Imagining Performed 11/09/23 07:40 CT abd pelvis IV con only Stat 11/09/23 11:15 CL Cath Imgs for PACS use only Stat Pending Results Patient Have Any Pending Studies at Discharge: No Discharge Instructions Given to Patient (Per Discharging Provider) You were admitted for chest pain and found to be having a heart attack. Luckily, the Heart team was able to get in and place a stent before your heart experienced potentially a lot of damage. Now that you have a stent, YOU MUST CONTINUE DUAL-ANTIPLATELET THERAPY FOR 1 YEAR (11/09/2024) TO HELP PREVENT CLOSURE OF THE STENT DUE TO A CLOT and to keep that part of your heart from closing and rexperincing a heart attack in that area. DUAL ANTIPLATELET INCLUDES TAKING: Aspirin 81 mg daily Plavix 75 mg daily You were also noted to have other heart vessels with blockages, but not large enough for a stent. The combination of taking the following medications in addition to the above Aspirin/Plavix, will help keep these from worsening. -Atorvastatin 80mg daily -Metoprolol XL 100mg twice daily -Losartan 25mg daily Part of preventing future blockages includes extensive lifestyle changes, starting with diet and exercise, as well as following closely with a [facility]. This includes better monitoring of your diabetes as your A1C (a marker for diabetes control) was 16% on admission to [facility]. You required extensive insulin given your dietary habits, however, it was d iscussed that you are not interested and would not consider insulin therapy; therefore the following is prescribed for your diabetes -Please continue your ozempic as prescribed -Your metformin was increased to 1000mg two times a day -Glipizide 10mg was prescribed, this should be taken two times a day with breakfast and dinner Poorly controlled diabetes will contribute to progression of vascular disease, nerve pain, vision loss, as well as an extensive list of other complications. You declined outside resources like Home Health and Rehab services. It is crucial to use your social network and your PCP to ensure the above medical issues come under adequate control otherwise readmission and potentially irreversible outcomes are very likely. Total Time Total Time Spent Total Time Spent (In Minutes): 45
== END 2023-11-11 11:36 | disposition home or self-care (01) | DRG 322 ==
LOC: ED 05:18 → EDINP 07:50 → SUATTDRO 07:50 → EDINP 08:04 → 4W 13:19